=== PATIENT | female | born 1950 | race Caucasian/White ===

== ENCOUNTER 2019-10-29 09:43 | Outpatient (CLI) | payer MEDICARE, OTHER, SELFPAY ==
--- NOTE | ~2019-10-29 | US_ITS ---
EXAMINATION: US carotid duplex BI DATE: 10/29/2019 10:57 INDICATION: Dizziness TECHNIQUE: Grayscale, color Doppler, and pulsed Doppler images of the cervical carotid arteries were obtained. The degree of vessel stenosis is placed in one of the following categories: normal, <50%, 5 0-69%, >=70% but less than near-occlusion, near-occlusion, or total occlusion. Note that percent sten osis relative to normal distal artery lumen diameter is indirectly measured from velocity measurement s as described by Ryan, et al. Radiology 2003; 229:340-346. COMPARISON: None. FINDINGS: RIGHT: The right common carotid artery (CCA) peak systolic velocity (PSV) is 87.1 cm/s. The right internal c arotid artery (ICA) PSV is 90.5 cm/s. The right ICA end-diastolic velocity (EDV) is 7.6 cm/s. The rig ht ICA/CCA PSV ratio is 1.0. Grayscale and color Doppler images yield an estimate of less than 50% di ameter reduction from plaque in the ICA. The external carotid artery (ECA) PSV is 147.6 cm/s. There i s antegrade flow in the right vertebral artery. LEFT: The left CCA PSV is 98.4 cm/s. The left ICA PSV is 217.1 cm/s. The left ICA EDV is 49.9 cm/s. The lef t ICA/CCA PSV ratio is 2.2. Grayscale and color Doppler images yield an estimate of 50-69%% diameter reduction from plaque in the ICA. The ECA PSV is 199.6 cm/s. There is minimal to and fro flow in the left vertebral artery. IMPRESSION: 1. Less than 50% stenosis in the right internal carotid artery. 2. 50-69% stenosis in the left internal carotid artery. Reviewed, dictated and finalized at Location [facility]. Reviewed, dictated and finalized at location A.
== END 2019-10-29 09:44 | disposition home or self-care (01) ==
PROVIDERS: PCP Family Medicine; Visit Provider Internal Medicine Cardiovascular Disease
DX: I65.23 Occlusion and stenosis of bilateral carotid arteries (principal); R42 Dizziness and giddiness; Z98.890 Other specified postprocedural states
CPT/HCPCS: 93880

== ENCOUNTER 2020-02-14 09:39 | Outpatient (NON) | payer MEDICARE, OTHER, SELFPAY ==
[2020-02-15 01:17] LABS: SARS-CoV-2 RNA PCR Negative
== END 2020-02-14 09:40 ==
PROVIDERS: PCP Family Medicine; Visit Provider Family Medicine
DX: R53.83 Other fatigue (principal); Z11.59 Encounter for screening for other viral diseases
CPT/HCPCS: 87635; C9803; U0003

== ENCOUNTER 2022-03-02 19:50 | Emergency (ER) | payer MEDICARE, OTHER, SELFPAY ==
[2022-03-02 20:16] VITALS: BP 153/52; PULSE 81; RESP 18; TEMP 36.4; O2SAT 100
--- NOTE | 2022-03-02 21:54 | PC.NURSE ---
bedside glucose check: 265
[2022-03-02 21:56] LABS: Basophils Absolute Auto 0.1 K/mm3 (0.0-0.1); Basophils Percent Auto 0.9 % (0.2-1.2); Eosinophils Absolute Auto 0.1 K/mm3 (0-0.3); Eosinophils Percent Auto 1.9 % (0-4.4); Hematocrit 42.1 % (37.0-47.0); Hemoglobin 13.6 g/dL (12.0-15.0); Immature Granulocyte Absolute 0.02 K/mm3 (0.00-0.031); Immature Granulocyte Percent A 0.3 % (0-0.5); Lymphocytes Absolute Auto 1.75 K/mm3 (0.9-3.2); Lymphocytes Percent Auto 26.2 % (18.3-44.2); Mean Corpuscular HGB Conc 32.3 g/dl (32-36); Mean Corpuscular Hemoglobin 30.3 pg (26-34); Mean Corpuscular Volume 93.8 fl (80-100); Monocytes Absolute Auto 0.5 K/mm3 (0.1-0.6); Monocytes Percent Auto 7.2 % (2.6-8.5); Neutrophils Absolute Auto 4.3 K/mm3 (1.3-6.7); Neutrophils Percent Auto 63.5 % (45.5-73.1); Platelet Count Result 169 k/mm3 (150-375); Red Blood Count 4.49 M/mm3 (4.2-5.4); Red Cell Distribution Width 12.6 % (11.5-14.5); White Blood Count 6.7 K/mm3 (4.5-10.0)
[2022-03-02 21:56] LABS: Glucose Point of Care 265 mg/dl (65-105)
[2022-03-02 21:59] LABS: Appearance Urine Clear (Clear); Bilirubin Urine Negative (Negative); Blood Urine Negative (Negative); Color Urine Yellow (Yellow); Glucose Urine UA 3+ mg/dL (Negative); Ketones Urine Negative (Negative); Leukocyte Esterase Ur Negative LEU/UL (Negative); Nitrate Urine Negative (Negative); Protein Urine Negative (Negative); Urobilinogen Urine 0.2 mg/dL (<2.0)
[2022-03-02 22:01] VITALS: BP 114/55; PULSE 71; RESP 20; O2SAT 100
--- NOTE | 2022-03-02 22:07 | ED.GENADULT ---
HPI - General Adult General Chief complaint: Recheck/Abnormal Lab/Rx Stated complaint: elevated BS, dong Time Seen by Provider: 03/02/22 21:29 History of Present Illness HPI narrative: 9-year-old female history of diabetes and recent hyperglycemia presenting the emergency department for evaluation of elevated blood sugars today. Patient states over the last month or 2 her blood sugars have been running higher. Patient was recently started on Lantus about 3 weeks ago. Patient's glucose monitor shows that she typically runs around 250 but did have some blood sugars over 400 today. Patient states during that time she did feel shaky. Patient states she does feel improved at this time. Patient has also been complaining of intermittent abdominal pain that is worsened with activities such as mowing the lawn. Patient denies any current abdominal pain at this time. Related Data Home Medications Medication Instructions Recorded Confirmed aspirin 81 mg tablet,delayed 81 mg PO DAILY 10/13/19 03/20/20 release (Adult Low Dose Aspirin) mirabegron 25 mg tablet,extended 25 mg PO DAILY 10/13/19 03/20/20 release 24 hr (Myrbetriq) Allergies Allergy/AdvReac Type Severity Reaction Status Date / Time No Known Allergies Allergy Verified 03/02/22 20:18 Review of Systems Review of Systems: CONSTITUTIONAL: Denies fever, chills, or sweats. EYES: Denies visual changes, redness, or discharge. ENT: Denies rhinorrhea, congestion, sore throat, or otalgia. CARDIOVASCULAR: Denies chest pain, palpitations, or edema. RESPIRATORY: Denies cough or dyspnea. GASTROINTESTINAL: See HPI GENITOURINARY: Denies dysuria or hematuria. SKIN: Denies rash or itching. MUSCULOSKELETAL: Denies back pain, joint pain, or myalgia. NEUROLOGIC: Denies headache, numbness, or weakness. [facility] Past Medical History Medical History ACL tear Tear of MCL (medial collateral ligament) of knee Family History Family History Mother Hypertension Cerebrovascular accident Family history of diabetes mellitus in first degree relative Family history of coronary artery disease Grandparent Family history of lung cancer Family history of coronary artery disease Diabetes mellitus Other Family history of arthritis Family history of gout Family history of malignant neoplasm Social History Social History Smoking status: Former smoker Smoking end date: 06/07/99 Alcohol intake: never Substance use: never Substance use type: does not use Gender identity (if verbalized by the patient): Female Exam Narrative: APPEARANCE: Well appearing, no pain, no distress, well-nourished. HEAD: normocephalic, atraumatic. EYES: PERRLA/EOMI, conjunctivae clear. NOSE: Normal no drainage NECK: Supple. No adenopathy, no masses. RESPIRATORY: Airway patent, respirations nonlabored. Clear to auscultation bilaterally, no rales, rhonchi, wheezing. CARDIOVASCULAR: Regular rate and rhythm without murmurs rubs or gallops. ABDOMINAL: Soft, nontender, nondistended, normal bowel sounds MUSCULOSKELETAL: Moves all extremities. Strength/ROM intact, No edema, No calf tenderness. NEURO: Alert. Cranial nerves II through XII intact. Grossly intact SKIN: Warm, dry. Normal Color Course Course Emergency Course: Patient's blood sugars did return to her recent baseline of 250. Patient did feel improved with treatment. Patient was encouraged to continue to have close follow-up with her primary care physician for further diabetic medication adjustment. Patient was comfortable with the plan for discharge and close follow-up. Vital Signs Vital signs: Vital Signs Temperature 97.5 F L 03/02/22 20:16 Pulse Rate 81 03/02/22 20:16 Respiratory Rate 18 03/02/22 20:16 Blood Pressure 153/52 H 03/02/22 20:16 Pulse Oximetry 100
[2022-03-02 22:11] LABS: Alanine Aminotransferase 19 U/L (6-35); Albumin Level 3.8 g/dL (3.5-5.1); Alkaline Phosphatase 72 U/L (38-126); Anion Gap 8 mmol/L (8-16); Aspartate Amino Transferase 21 U/L (14-36); Bilirubin,Total 0.4 mg/dL (0.2-1.3); Blood Urea Nitrogen 19 mg/dL (7-17); Calcium 8.9 mg/dL (8.4-10.2); Carbon Dioxide 27 mmol/L (22-30); Chloride 102 mmol/L (98-107); Estimated CRCL calculation 53 ml/min; Estimated Glomerular Filt Rate > 60; Glucose 267 mg/dL (65-110); Potassium 4.5 mmol/L (3.4-5.0); Sodium 137 mmol/L (137-145)
[2022-03-02 22:12] LABS: Bacteria Urine Trace /hpf; RBC Urine 0-2 /hpf (0-2); Squamous Epithelial Cell Urine Moderate /hpf (Few); WBC Urine 21-30 /hpf
[2022-03-02 22:18] LABS: Hemoglobin A1C 8.2 % (<5.7)
[2022-03-02 22:55] LABS: Add Urine Microscopic? YES
== END 2022-03-02 22:48 | disposition home or self-care (01) ==
PROVIDERS: Emergency Provider Emergency Medicine; PCP Family Medicine
DX: E11.65 Type 2 diabetes mellitus with hyperglycemia (principal); Z79.82 Long term (current) use of aspirin; Z87.891 Personal history of nicotine dependence; Z79.84 Long term (current) use of oral hypoglycemic drugs
CPT/HCPCS: 36415; 80053; 81001; 82948; 83036; 85025; 87086; 87088; 99283

== ENCOUNTER 2023-02-10 01:24 | Day surgery (SDC) | payer MEDICARE, OTHER, SELFPAY ==
[2023-02-02 15:46] VITALS: BMI 26.6
--- NOTE | 2023-02-09 14:59 | PM.HPGS ---
History of Present Illness History of Present Illness Consent: Risks, benefits, and alternatives have been discussed and questions answered. Patient agrees to proceed with procedure. Chief complaint: hx colon polyps Narrative: Mildred Grace is a 72 year old female undergoing colon cancer screening. She has history of polyps. Her last colonoscopy was 5 years ago. Review of Systems Review of Systems: All systems reviewed & are unremarkable except as noted in HPI and below PMFSH Past Medical History Medical History ACL tear Tear of MCL (medial collateral ligament) of knee Family History Family History Mother Hypertension Cerebrovascular accident Family history of diabetes mellitus in first degree relative Family history of coronary artery disease Grandparent Family history of lung cancer Family history of coronary artery disease Diabetes mellitus Other Family history of arthritis Family history of gout Family history of malignant neoplasm Social History Social History Smoking status: Former smoker Tobacco type: cigarettes Smoking end date: 06/07/99 Alcohol intake: current Alcohol use details: social Substance use: never Substance use type: does not use Living arrangements: with family Occupation/Education: retired Gender identity (if verbalized by the patient): Female Spiritual care concerns: No Meds Home Medications and Allergies Home Medications Medication Instructions Recorded Confirmed Type exenatide microspheres 2 mg/0.65 2 mg (0.65 mL) subcut Q7D #12 ea 09/21/19 02/02/23 Rx mL subcutaneous pen injector (Bydureon) aspirin 81 mg tablet,delayed 81 mg PO DAILY 10/13/19 02/02/23 History release (Adult Low Dose Aspirin) mirabegron 25 mg tablet,extended 25 mg PO DAILY 10/13/19 02/02/23 History release 24 hr (Myrbetriq) colchicine (gout) 0.6 mg capsule 0.6 mg PO .COMPLEX #30 caps 03/17/21 02/02/23 Rx (Mitigare) buspirone 7.5 mg tablet 7.5 mg PO BID 02/02/23 02/02/23 History clopidogrel 75 mg tablet 75 mg PO DAILY 02/02/23 02/10/23 History dapagliflozin propanediol 10 mg 10 mg PO DAILY 02/02/23 02/02/23 History tablet (Farxiga) duloxetine 60 mg capsule,delayed 60 mg PO DAILY 02/02/23 02/02/23 History release gabapentin 300 mg capsule 300 mg PO BID 02/02/23 02/02/23 History insulin aspart U-100 100 unit/mL 8 unit subcut TIDWM 02/02/23 02/02/23 History (3 mL) subcutaneous pen insulin detemir U-100 100 unit/mL 25 unit subcut BID 02/02/23 02/02/23 History (3 mL) subcutaneous pen (Levemir FlexPen) lisinopril 40 mg tablet 40 mg PO DAILY 02/02/23 02/02/23 History semaglutide 1 mg/dose (4 mg/3 mL) 1 mg subcut WEEKLY 02/02/23 02/02/23 History subcutaneous pen injector (Ozempic) Allergies Allergy/AdvReac Type Severity Reaction Status Date / Time No Known Allergies Allergy Verified 02/10/23 09:31 Exam Const: General: alert Orientation/consciousness: patient oriented x3 Resp: Auscultation: clear to auscultation bilaterally Cardio: Rhythm: regular rhythm GI: GI Palp: Yes Soft to palpation and No Tenderness to palpation present (GI) Neuro: General: patient oriented x3 Assessment and Plan Assessment and plan (1) Colon cancer screening: Code(s): Z12.11 - Encounter for screening for malignant neoplasm of colon Status: Acute Assessment and Plan: Colonoscopy with possible biopsy or polypectomy or cautery or injection of substances.
[2023-02-10 09:34] VITALS: BP 125/62; PULSE 75; RESP 18; TEMP 36.1; O2SAT 99
[2023-02-10] MEDS: LACTATED RINGERS 1,000 ML 150 ML IV CONT (09:44)
--- NOTE | 2023-02-10 10:20 | WPDANESEPPF ---
Anes - Initial Pre Proc Eval Procedure: Operation Date: 02/10/23 11:30 Proposed Procedures p Colonoscopy - Tino Ng MD Date/Time: 02/10/23 10:20 Surgeon: Tino Ng MD Pre Op Diagnosis: hx colon polyps Patient Data Age: 72 Gender: F Height: 1.57 m Weight: 67.4 kg Last Vital Signs Temp 97 F L 02/10/23 09:34 Pulse 75 02/10/23 09:34 Resp 18 02/10/23 09:34 BP 125/62 02/10/23 09:34 Pulse Ox 99 02/10/23 09:34 O2 Del Method Room Air 02/10/23 09:34 Allergies Allergy/AdvReac Type Severity Reaction Status Date / Time No Known Allergies Allergy Verified 02/10/23 09:31 Home Medications Medication Instructions Recorded Confirmed Type exenatide microspheres 2 mg/0.65 2 mg (0.65 mL) subcut Q7D #12 ea 09/21/19 02/02/23 Rx mL subcutaneous pen injector (Bydureon) aspirin 81 mg tablet,delayed 81 mg PO DAILY 10/13/19 02/02/23 History release (Adult Low Dose Aspirin) mirabegron 25 mg tablet,extended 25 mg PO DAILY 10/13/19 02/02/23 History release 24 hr (Myrbetriq) colchicine (gout) 0.6 mg capsule 0.6 mg PO .COMPLEX #30 caps 03/17/21 02/02/23 Rx (Mitigare) buspirone 7.5 mg tablet 7.5 mg PO BID 02/02/23 02/02/23 History clopidogrel 75 mg tablet 75 mg PO DAILY 02/02/23 02/10/23 History dapagliflozin propanediol 10 mg 10 mg PO DAILY 02/02/23 02/02/23 History tablet (Farxiga) duloxetine 60 mg capsule,delayed 60 mg PO DAILY 02/02/23 02/02/23 History release gabapentin 300 mg capsule 300 mg PO BID 02/02/23 02/02/23 History insulin aspart U-100 100 unit/mL 8 unit subcut TIDWM 02/02/23 02/02/23 History (3 mL) subcutaneous pen insulin detemir U-100 100 unit/mL 25 unit subcut BID 02/02/23 02/02/23 History (3 mL) subcutaneous pen (Levemir FlexPen) lisinopril 40 mg tablet 40 mg PO DAILY 02/02/23 02/02/23 History semaglutide 1 mg/dose (4 mg/3 mL) 1 mg subcut WEEKLY 02/02/23 02/02/23 History subcutaneous pen injector (Ozempic) Patient hx anesthesia problems: none Family hx anesthesia problems: none Results Review: All pre-operative results and documents have been reviewed as part of the pre-operative evaluation. [facility] Past Medical History Medical History ACL tear Tear of MCL (medial collateral ligament) of knee Family History Family History Mother Hypertension Cerebrovascular accident Family history of diabetes mellitus in first degree relative Family history of coronary artery disease Grandparent Family history of lung cancer Family history of coronary artery disease Diabetes mellitus Other Family history of arthritis Family history of gout Family history of malignant neoplasm Social History Social History Smoking status: Former smoker Tobacco type: cigarettes Smoking end date: 06/07/99 Alcohol intake: current Alcohol use details: social Substance use: never Substance use type: does not use Living arrangements: with family Occupation/Education: retired Gender identity (if verbalized by the patient): Female Spiritual care concerns: No Anes - Eval Final PreProcedure Day of Procedure 02/10/23 10:20 Patient weight: normal Heart: regular rate and rhythm Lungs: clear to auscultation Airway: Mallampati scale class II Neurological: alert and oriented Last oral intake: >/= 8 hours ASA classification: III Emergent: no Anesthetic plan: proceed Anesthesia type and monitoring: general GIVS and standard monitoring Results Review: All pre-operative results and documents have been reviewed as part of the pre-operative evaluation. Informed Consent: The patient's anesthetic plan and its attendant risks and benefits were discussed with the patient/family/POA. Questions were solicited and answers provided to the satisfaction of the patient/family
[2023-02-10 10:57] VITALS: BP 123/56; PULSE 74; RESP 20; O2SAT 96
[2023-02-10 11:07] VITALS: BP 107/51; PULSE 74; RESP 20; O2SAT 96
[2023-02-10 11:14] LABS: Glucose Point of Care 95 mg/dl (65-105)
[2023-02-10 11:17] VITALS: BP 128/65; PULSE 72; RESP 18; O2SAT 100
== END 2023-02-10 11:34 | disposition home or self-care (01) ==
PROVIDERS: PCP Family Medicine; Visit Provider Internal Medicine Gastroenterology
PROC: 0DJD8ZZ Inspection of Lower Intestinal Tract, Via Natural or Artificial Opening Endoscopic (ICD-10-PCS; CPT 45378; principal; 2023-02-10 11:30)
DX: Z12.11 Encounter for screening for malignant neoplasm of colon (principal); D12.4 Benign neoplasm of descending colon; K63.5 Polyp of colon; K57.30 Diverticulosis of large intestine without perforation or abscess without bleeding; Z79.82 Long term (current) use of aspirin; Z79.4 Long term (current) use of insulin; Z79.899 Other long term (current) drug therapy; Z87.891 Personal history of nicotine dependence
CPT/HCPCS: 45385; 82948; 88305; J2704; J7120

== ENCOUNTER 2023-11-14 13:01 | Emergency (ER) | payer MEDICARE, OTHER, SELFPAY ==
--- NOTE | ~2023-11-14 | XR_ITS ---
XR finger 3rd LT min 2V 11/14/2023 13:26 INDICATION: Left third finger pain after fall PROCEDURE: 3 views left third finger COMPARISON: No prior studies FINDINGS: Fracture, dislocation or subluxation is not identified. Mild polyarticular osteoarthritis. The soft tissues appear within normal limits. No foreign bodies are identified. IMPRESSION: 1: NO ACUTE BONE OR JOINT ABNORMALITY IDENTIFIED. Reviewed, dictated and finalized at location B.
--- NOTE | 2023-11-14 13:04 | ED.UPPEXIN ---
HPI - Extremity Injury (Upper) General Chief Complaint: Extremity Injury, Upper Stated Complaint: Injured Finger/Bruised Arm Time Seen by Provider: 11/14/23 13:03 Source: patient Mode of arrival: ambulatory Limitations: no limitations History of Present Illness HPI narrative: Mildred is a 73-year-old female patient presenting to the clinic today with complaints of injury to her finger left 3rd finger. She reports that she fell approximately 3 hours at home when going inside the home she tripped over the step to get up into the house and hit her finger on a Orange chest. States that she thought she displaced her finger and popped it back into place but now it has bruising and swelling. Also reporting some skin tears 2 to the left arm and 1 to the right arm. She denies hitting her head or any loss of consciousness. Denies any neck pain. Related Data Home Medications Medication Instructions Recorded Confirmed aspirin 81 mg tablet,delayed 81 mg PO DAILY 10/13/19 02/02/23 release (Adult Low Dose Aspirin) mirabegron 25 mg tablet,extended 25 mg PO DAILY 10/13/19 02/02/23 release 24 hr (Myrbetriq) buspirone 7.5 mg tablet 7.5 mg PO BID 02/02/23 02/02/23 clopidogrel 75 mg tablet 75 mg PO DAILY 02/02/23 02/10/23 dapagliflozin propanediol 10 mg 10 mg PO DAILY 02/02/23 02/02/23 tablet (Farxiga) duloxetine 60 mg capsule,delayed 60 mg PO DAILY 02/02/23 02/02/23 release gabapentin 300 mg capsule 300 mg PO BID 02/02/23 02/02/23 insulin aspart U-100 100 unit/mL 8 unit subcut TIDWM 02/02/23 02/02/23 (3 mL) subcutaneous pen insulin detemir U-100 100 unit/mL 25 unit subcut BID 02/02/23 02/02/23 (3 mL) subcutaneous pen (Levemir FlexPen) lisinopril 40 mg tablet 40 mg PO DAILY 02/02/23 02/02/23 semaglutide 1 mg/dose (4 mg/3 mL) 1 mg subcut WEEKLY 02/02/23 02/02/23 subcutaneous pen injector (Ozempic) Allergies Allergy/AdvReac Type Severity Reaction Status Date / Time No Known Allergies Allergy Verified 02/10/23 09:31 Review of Systems Review of Systems: Pertinent positives per HPI. Patient denies any fever, chills, rash, headache, visual changes, dizziness, cough, runny nose, sore throat, shortness of breath, chest pain, palpitations, nausea, vomiting, diarrhea, constipation, abdominal pain, or any urinary issues. PMFSH Past Medical History Medical History ACL tear Tear of MCL (medial collateral ligament) of knee Family History Family History Mother Hypertension Cerebrovascular accident Family history of diabetes mellitus in first degree relative Family history of coronary artery disease Grandparent Family history of lung cancer Family history of coronary artery disease Diabetes mellitus Other Family history of arthritis Family history of gout Family history of malignant neoplasm Social History Social History Smoking status: Former smoker Tobacco type: cigarettes Smoking end date: 06/07/99 Alcohol intake: current Alcohol use details: social Substance use: never Substance use type: does not use Living arrangements: with family Occupation/Education: retired Gender identity (if verbalized by the patient): Female Spiritual care concerns: No Comments At the time of my signature, I reviewed and agree with the nursing past medical, surgical, social, and family history. There is no relevant family history pertinent to the patient complaint. Exam Narrative: General: Well-developed, well nourished, in no apparent distress Head: Normocephalic, atraumatic. Cardio: Regular rate and rhythm, s1 and s2 normal, no murmur appreciated. Resp: Clear to auscultation bilaterally, no rhonchi, rales, wheezing or rubs. Musculoskeletal: No deformity, bruising and swelling over the dorsal finger, swelling over th
[2023-11-14 13:14] VITALS: BP 139/59; PULSE 67; RESP 16; TEMP 36.6; O2SAT 99
[2023-11-14] MEDS: TETANUS,DIPHTHERIA,AC PERTUSSIS ADULT (0.5 ML) BOOSTRIX IM (13:31)
== END 2023-11-14 13:55 | disposition home or self-care (01) ==
PROVIDERS: Emergency Provider Nurse Practitioner Family; PCP Family Medicine
DX: S51.812A Laceration without foreign body of left forearm, initial encounter (principal); S63.633A Sprain of interphalangeal joint of left middle finger, initial encounter; W10.9XXA Fall (on) (from) unspecified stairs and steps, initial encounter; Z23 Encounter for immunization; Z87.891 Personal history of nicotine dependence
CPT/HCPCS: 29130; 73140; 90471; 90715; 99213; G0463

== ENCOUNTER 2024-01-14 11:02 | Outpatient (CLI) | payer MEDICARE, OTHER, SELFPAY ==
[2024-01-14 11:43] LABS: Hemoglobin 14.7 g/dL (12.0-15.0); Mean Corpuscular Hemoglobin 30.1 pg (26-34); Mean Corpuscular Volume 94.3 fl (80-100); Mean Platelet Volume 9.8 fl (7.4-10.4); Platelet Count Result 188 k/mm3 (150-375); Red Blood Count 4.88 M/mm3 (4.2-5.4); Red Cell Distribution Width 13.5 % (11.5-14.5); White Blood Count 6.4 K/mm3 (4.5-10.0)
[2024-01-14 11:49] LABS: Add Urine Microscopic? YES; Appearance Urine Cloudy (Clear); Bacteria Urine Rare /hpf; Bilirubin Urine Negative (Negative); Blood Urine Negative (Negative); Color Urine Yellow (Yellow); Glucose Urine UA Negative (Negative); Ketones Urine Negative (Negative); Leukocyte Esterase Ur 2+ LEU/UL (Negative); Nitrate Urine Negative (Negative); Non Pathogenic Casts 0-2; Protein Urine Negative (Negative); RBC Urine 0-2 /hpf (0-2); Specific Grav Ur 1.017 (1.001-1.035); Squamous Epithelial Cell Urine Moderate /hpf (Few); Urobilinogen Urine 0.2 mg/dL (<2.0); pH Urine 5.5 (5.0-9.0)
[2024-01-14 12:37] LABS: Alanine Aminotransferase 25 U/L (6-35); Albumin Level 4.2 g/dL (3.5-5.1); Alkaline Phosphatase 72 U/L (38-126); Anion Gap 11 mmol/L (4-12); Aspartate Amino Transferase 25 U/L (14-36); Bilirubin,Total 0.9 mg/dL (0.2-1.3); Blood Urea Nitrogen 21 mg/dL (7-17); Calcium 9.4 mg/dL (8.4-10.2); Carbon Dioxide 30 mmol/L (22-30); Chloride 98 mmol/L (98-107); Estimated Glomerular Filt Rate > 60; Glucose 118 mg/dL (65-110); Potassium 4.3 mmol/L (3.4-5.0); Sodium 139 mmol/L (137-145)
== END 2024-01-14 11:03 | disposition home or self-care (01) ==
PROVIDERS: PCP Family Medicine; Visit Provider Nurse Practitioner Family
DX: K52.9 Noninfective gastroenteritis and colitis, unspecified (principal); R10.9 Unspecified abdominal pain
CPT/HCPCS: 36415; 80053; 81001; 85027; 87086; 87088

== ENCOUNTER 2024-01-17 11:09 | Outpatient (CLI) | payer MEDICARE, OTHER, SELFPAY ==
[2024-01-17 13:30] LABS: Toxigenic C. Diff NEGATIVE (NEGATIVE)
[2024-01-28 10:54] LABS: Trichrome Ova and Parasites STATUS: FINAL
== END 2024-01-17 11:10 | disposition home or self-care (01) ==
LOC: ANHLAB 11:15
PROVIDERS: PCP Family Medicine; Visit Provider Nurse Practitioner Family
DX: K52.9 Noninfective gastroenteritis and colitis, unspecified (principal)
CPT/HCPCS: 87045; 87177; 87209; 87269; 87427; 87449; 87493

== ENCOUNTER 2024-04-04 01:30 | Day surgery (SDC) | payer MEDICARE, OTHER, SELFPAY ==
[2024-03-28 13:57] VITALS: BMI 29.0
--- NOTE | 2024-03-30 09:13 | PC.NURSE ---
Called [facility] Cardiology Dr. Allan and left a message with Francisco in regards to cardiac clearance for this patient's colonoscopy. Clearance is needed by today as patient's last dose of Plavix is today.
--- NOTE | 2024-03-30 11:28 | PC.NURSE ---
Spoke with patient regarding medication, Plavix. Pt. verbalizes understanding that the last dose of Plavix to be taken on 03/30/2024 and the Endoscopist will instruct them when to restart after the procedure.
[2024-04-04 07:18] VITALS: BP 122/53; PULSE 73; RESP 18; TEMP 36.4; O2SAT 97; BMI 29.2
[2024-04-04 07:53] LABS: Glucose Point of Care 115 mg/dl (65-105)
[2024-04-04] MEDS: LACTATED RINGERS 1,000 ML 150 ML IV CONT (07:57)
--- NOTE | 2024-04-04 08:05 | PM.HPGS ---
History of Present Illness History of Present Illness Consent: Risks, benefits, and alternatives have been discussed and questions answered. Patient agrees to proceed with procedure. Chief complaint: gastroenteritis/colitis Narrative: Mildred Grace is a 74 year old female with episode of colitis, now resolved, no more diarrhea. Last colonoscopy 2022 with polyp. She has fatigue and back pain. Review of Systems Review of Systems: All systems reviewed & are unremarkable except as noted in HPI and below PMFSH Past Medical History Medical History (Updated 02/11/24 @ 13:41 by Aidee Boss APN-Angelica) Abdominal pain ACL tear Colitis Diarrhea Fatigue IBS (irritable bowel syndrome) Tear of MCL (medial collateral ligament) of knee Family History Family History Mother Hypertension Cerebrovascular accident Family history of diabetes mellitus in first degree relative Family history of coronary artery disease Grandparent Family history of lung cancer Family history of coronary artery disease Diabetes mellitus Other Family history of arthritis Family history of gout Family history of malignant neoplasm Social History Social History Smoking packs per day: 1 Smoking cigarettes per day: 20.0 Years smoked: 45 Smoking pack-years: 45.00 Smoking status: Former smoker Tobacco type: cigarettes Smoking end date: 06/07/99 Alcohol intake: current Alcohol use details: social Substance use: never Substance use type: does not use Living arrangements: with family Occupation/Education: retired Gender identity (if verbalized by the patient): Female Spiritual care concerns: No Meds Home Medications and Allergies Home Medications Medication Instructions Recorded Confirmed Type aspirin 81 mg tablet,delayed 81 mg PO DAILY 10/13/19 04/04/24 History release (Adult Low Dose Aspirin) buspirone 7.5 mg tablet 7.5 mg PO TID 02/02/23 03/28/24 History clopidogrel 75 mg tablet 75 mg PO DAILY 02/02/23 03/28/24 History duloxetine 60 mg capsule,delayed 60 mg PO DAILY 02/02/23 03/28/24 History release gabapentin 300 mg capsule 300 mg PO BID 02/02/23 03/28/24 History insulin aspart U-100 100 unit/mL 8 unit subcut TIDWM 02/02/23 04/04/24 History (3 mL) subcutaneous pen insulin detemir U-100 100 unit/mL 30 unit subcut BID 02/02/23 04/04/24 History (3 mL) subcutaneous pen (Levemir FlexPen) lisinopril 40 mg tablet 40 mg PO DAILY 02/02/23 03/28/24 History semaglutide 1 mg/dose (4 mg/3 mL) 2 mg subcut WEEKLY 02/02/23 04/04/24 History subcutaneous pen injector (Ozempic) dicyclomine 10 mg capsule 10 mg PO TID PRN abdominal pain 01/14/24 03/28/24 Rx #30 caps alprazolam 0.25 mg tablet 0.25 mg PO TID PRN Anxiety 03/28/24 04/04/24 History biotin 1,000 mcg chewable tablet 1,000 mcg PO DAILY 03/28/24 03/28/24 History cholecalciferol (vitamin D3) 25 25 mcg PO DAILY 03/28/24 03/28/24 History mcg (1,000 unit) tablet (Vitamin D3) colchicine 0.6 mg capsule 0.6 mg PO .COMPLEX PRN GOUT 03/28/24 03/28/24 History (Mitigare) donepezil 10 mg tablet 10 mg PO HS 03/28/24 03/28/24 History oxybutynin chloride 10 mg 10 mg PO DAILY 03/28/24 03/28/24 History tablet,extended release 24 hr rosuvastatin 40 mg tablet 40 mg PO DAILY 03/28/24 03/28/24 History Allergies Allergy/AdvReac Type Severity Reaction Status Date / Time No Known Allergies Allergy Verified 03/28/24 13:58 Vital Signs Vital Signs - 24 hr 04/04/24 07:18 Temperature 97.6 F Pulse Rate 73 Respiratory Rate 18 Blood Pressure 122/53 L Pulse Oximetry 97 Oxygen Delivery Room Air Exam Const: General: comfortable and no acute distress HENMT: Face/Nose/Sinus: Normal nares present Eyes: General: appearance normal, both eyes and all related structures Neck: Neck: no JVD Resp: Auscultation: clear to auscultation bilaterally Cardio: Rate: regular rate Rhythm: regular rhythm GI: Inspection: non-distended GI Palp: Yes Soft to palpation Skin: General skin exam: normal color Neuro: General: gait normal Speech: normal speech Extrem: General: normal to inspection Psych: Mental Status: mental status grossly normal Assessment and Plan Assessment and plan (1) Colitis: Code(s): K52.9 - Noninfective gastroenteritis and colitis, unspecified Status: Acute Assessment and Plan: clinically resolved will do colonoscopy
--- NOTE | 2024-04-04 08:12 | WPDANESEPPF ---
Anes - Initial Pre Proc Eval Procedure: Operation Date: 04/04/24 08:30 Proposed Procedures p Colonoscopy - Ari Crabtree MD Date/Time: 04/04/24 08:12 Surgeon: Ari Crabtree MD Pre Op Diagnosis: gastroenteritis/colitis Patient Data Age: 74 Gender: F Height: 1.57 m Weight: 72.4 kg Last Vital Signs Temp 36.4 C 04/04/24 07:18 Pulse 73 04/04/24 07:18 Resp 18 04/04/24 07:18 BP 122/53 L 04/04/24 07:18 Pulse Ox 97 04/04/24 07:18 O2 Del Method Room Air 04/04/24 07:18 Allergies Allergy/AdvReac Type Severity Reaction Status Date / Time No Known Allergies Allergy Verified 03/28/24 13:58 Home Medications Medication Instructions Recorded Confirmed Type aspirin 81 mg tablet,delayed 81 mg PO DAILY 10/13/19 04/04/24 History release (Adult Low Dose Aspirin) buspirone 7.5 mg tablet 7.5 mg PO TID 02/02/23 03/28/24 History clopidogrel 75 mg tablet 75 mg PO DAILY 02/02/23 03/28/24 History duloxetine 60 mg capsule,delayed 60 mg PO DAILY 02/02/23 03/28/24 History release gabapentin 300 mg capsule 300 mg PO BID 02/02/23 03/28/24 History insulin aspart U-100 100 unit/mL 8 unit subcut TIDWM 02/02/23 04/04/24 History (3 mL) subcutaneous pen insulin detemir U-100 100 unit/mL 30 unit subcut BID 02/02/23 04/04/24 History (3 mL) subcutaneous pen (Levemir FlexPen) lisinopril 40 mg tablet 40 mg PO DAILY 02/02/23 03/28/24 History semaglutide 1 mg/dose (4 mg/3 mL) 2 mg subcut WEEKLY 02/02/23 04/04/24 History subcutaneous pen injector (Ozempic) dicyclomine 10 mg capsule 10 mg PO TID PRN abdominal pain 01/14/24 03/28/24 Rx #30 caps alprazolam 0.25 mg tablet 0.25 mg PO TID PRN Anxiety 03/28/24 04/04/24 History biotin 1,000 mcg chewable tablet 1,000 mcg PO DAILY 03/28/24 03/28/24 History cholecalciferol (vitamin D3) 25 25 mcg PO DAILY 03/28/24 03/28/24 History mcg (1,000 unit) tablet (Vitamin D3) colchicine 0.6 mg capsule 0.6 mg PO .COMPLEX PRN GOUT 03/28/24 03/28/24 History (Mitigare) donepezil 10 mg tablet 10 mg PO HS 03/28/24 03/28/24 History oxybutynin chloride 10 mg 10 mg PO DAILY 03/28/24 03/28/24 History tablet,extended release 24 hr rosuvastatin 40 mg tablet 40 mg PO DAILY 03/28/24 03/28/24 History Laboratory Tests 04/04/24 07:49 POC Capillary Glucose 115 H mg/dl (65-105) Patient hx anesthesia problems: none Family hx anesthesia problems: none Results Review: All pre-operative results and documents have been reviewed as part of the pre-operative evaluation. [facility], [facility] Past Medical History Medical History Abdominal pain ACL tear Colitis Diarrhea Fatigue IBS (irritable bowel syndrome) Tear of MCL (medial collateral ligament) of knee Family History Family History Mother Hypertension Cerebrovascular accident Family history of diabetes mellitus in first degree relative Family history of coronary artery disease Grandparent Family history of lung cancer Family history of coronary artery disease Diabetes mellitus Other Family history of arthritis Family history of gout Family history of malignant neoplasm Social History Social History Smoking packs per day: 1 Smoking cigarettes per day: 20.0 Years smoked: 45 Smoking pack-years: 45.00 Smoking status: Former smoker Tobacco type: cigarettes Smoking end date: 06/07/99 Alcohol intake: current Alcohol use details: social Substance use: never Substance use type: does not use Living arrangements: with family Occupation/Education: retired Gender identity (if verbalized by the patient): Female Spiritual care concerns: No Anes - Eval Final PreProcedure Day of Procedure 04/04/24 08:12 Patient weight: overweight Heart: regular rate and rhythm Lungs: clear to auscultation Airway: Mallampati scale Neurological: alert and oriented Last oral intake: >/= 8 hours ASA classification: III Emergent: no Anesthetic plan: proceed Anesthesia type and monitoring: general Results Review: All pre-operative results and documents have been reviewed as part of the pre-operative evaluation. Informed Consent: The patient's anesthetic plan and its attendant risks and benefits were discussed with the patient/family/POA. Questions were solicited and answers provided to the satisfaction of the patient/family/POA.
[2024-04-04 08:21] VITALS: BP 90/27; PULSE 65; RESP 16; O2SAT 93
[2024-04-04 08:31] VITALS: BP 84/26; PULSE 63; RESP 16; O2SAT 92
[2024-04-04 08:34] VITALS: BP 115/41; PULSE 72; RESP 16; O2SAT 92
[2024-04-04 08:41] VITALS: BP 110/44; PULSE 71; RESP 16; O2SAT 99
[2024-04-04 08:51] LABS: Glucose Point of Care 110 mg/dl (65-105)
== END 2024-04-04 08:54 | disposition home or self-care (01) ==
PROVIDERS: PCP Family Medicine; Referring Provider Nurse Practitioner Family; Visit Provider Internal Medicine Gastroenterology
PROC: 0DJD8ZZ Inspection of Lower Intestinal Tract, Via Natural or Artificial Opening Endoscopic (ICD-10-PCS; CPT 45378; principal; 2024-04-04 08:30)
DX: K63.5 Polyp of colon (principal); K64.8 Other hemorrhoids; K57.30 Diverticulosis of large intestine without perforation or abscess without bleeding; K58.9 Irritable bowel syndrome, unspecified; Z79.82 Long term (current) use of aspirin; Z79.02 Long term (current) use of antithrombotics/antiplatelets; Z79.4 Long term (current) use of insulin; Z79.85 Long-term (current) use of injectable non-insulin antidiabetic drugs; Z87.891 Personal history of nicotine dependence; Z87.19 Personal history of other diseases of the digestive system; Z80.1 Family history of malignant neoplasm of trachea, bronchus and lung; Z82.49 Family history of ischemic heart disease and other diseases of the circulatory system
CPT/HCPCS: 45385; 82948; 88305; J2704; J7120

== ENCOUNTER 2024-07-07 11:39 | Inpatient (IN) | payer MEDICARE, OTHER, SELFPAY ==
[2024-07-07] VITALS (7 sets, daily range): BP systolic 127–172; BP diastolic 59–105; PULSE 87–99; RESP 12–20; TEMP 36.8–37.2; O2SAT 93–98; BMI 32.2
--- NOTE | ~2024-07-07 | CT_ITS ---
EXAMINATION: CT abdomen pelvis w con DATE: 07/07/2024 16:43 INDICATION: Bloody diarrhea TECHNIQUE: Computed tomography (CT) of the abdomen and pelvis was performed with 100 mL Omnipaque-350 intravenous contrast. Automated exposure control and iterative reconstruction technique were employe d. The dose-length product was 560.14 mGy-cm. COMPARISON: 12/06/2018 FINDINGS: Visualized lung bases are clear. Heart size is normal. Atherosclerotic coronary artery calcification is. No pericardial or pleural effusion. Cholecystectomy clips in the gallbladder fossa. Liver, pancre as and bilateral adrenal glands are normal. There are bilateral renal cysts the largest on the right measuring 2.5 cm. Unchanged likely benign partially rim calcified 1.2 cm cystic lesion in the spleen. There is wall thickening extending from the mid transverse the mid sigmoid colon with mild associate d hyperemia to vasa recta consistent with colitis. There are few sigmoid diverticula without adjacent from trace stranding to suggest diverticulitis. Small bowel and appendix are normal. Partially decom pressed bladder is unremarkable. The uterus is not identified and has likely been surgically resected . No free intraperitoneal gas or fluid. No pathologically enlarged abdominal or pelvic lymphadenopath y. There is calcified atherosclerosis without hemodynamically significant stenosis of the aorta and m any of the other arteries. Mild lumbar dextroscoliosis with severe lumbar and lower thoracic spondyl osis. There are bridging osteophytes at multiple levels consistent with diffuse idiopathic skeletal h yperostosis (DISH). IMPRESSION: 1. Colitis extending from the mid transverse to the mid sigmoid colon which could be infectious, infl ammatory or ischemic in etiology. Reviewed, dictated and finalized at location [facility] IMPRESSION: 1. Colitis extending from the mid transverse to the mid sigmoid colon which cou ld be infectious, inflammatory or ischemic in etiology.
--- OUTSIDE RECORDS SUMMARY | 2024-07-07 11:43 | XMS_ITS | Clinical Summary ---
Author Organization [facility] Address [address] 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 This disclosure is being madepursuant to the Care Everywhere program and may not contain all information available regarding this patient. Last updated 18.[facility] Allergies No known active allergies Medications * Be aware that medications may not be up to date on this document. Alwaysverify current medications with the patient. Medication Sig Dispensed Refills Start Date End Date Status aspirin (ASPIRIN) 81 MG chew tablet Take 81 mg by mouth DAILY. 100 tablet 3 03/02/2017 Active rosuvastatin (CRESTOR) 40 MG tablet 02/07/2016 Active Biotin 1000 MCG Take by mouth. 04/16/2016 Activ e quinapril (ACCUPRIL) 40 MG tablet Take 5 mg by mouth once daily 02/05/2013 Active gabapentin (NEURONTIN) 300 MG capsule Take 300 mg by mouth 2 times daily Takes 1 tab BID 10/01/2014 Active DULoxetine (CYMBALTA) 60 MG capsule Take by mouth once daily 09/18/2014 Active clopidogrel (PLAVIX) 75 MG tablet Take 75 mg by mouth once daily 01/13/2013 Active empagliflozin (JARDIANCE) 25 MG tablet Take 25 mg by mouth once daily Active febuxostat (ULORIC) 40 MG tablet Take 40 mg by mouth once daily Active busPIRone (BUSPAR) 7.5 MG tablet Take 7.5 mg by mouth 2 times daily Active colchicine (COLCRYS) 0.6 MG tablet Take 0.6 mg by mouth once daily Active Magnesium 400 MG Take by mouth once daily Active Vitamin D, Cholecalciferol, 25 MCG (1000 UT) CAPS Take by mouth once daily Active Cyanocobalamin (B-12) 2500 MCG Take by mouth every 2 days Active Cranberry 500 MG TABS Take by mouth once daily Active TURMERIC PO Take 1,400 mg by mouth once daily Active ALPRAZolam (XANAX) 0.5 MG tablet Take 0.5 mg by mouth at bedtime Active Active Problems Problem Noted Date Diagnosed Date Transient cerebral ischemic attack 2017 Fall 03/08/2014 Dizziness and giddiness 03/08/2014 Occlusion and stenosis of unspecified carotid ar shannon 03/02/2013 Type 2 diabetes mellitus with diabetic neuropath y 01/13/2013 Essential (primary) hypertension 01/13/2013 Cardiac arrhythmia 01/13/2013 Overview (09/06/2017): History - Cerebral infarction 01/13/2013 Overview (09/06/2017): R caudate and putamen stroke Type 2 diabetes mellitus without complications 0 01/13/2013 Stenosis of left carotid artery Family History Medical History Relation Name Comments Hypertension Daughter High Cholesterol Father CVA Maternal Grandmother Diabetes Maternal Grandmother CVA Mother Diabetes Mother High Cholesterol Mother Hypertension Mother Relation Name Status Comments Daughter Father Maternal Grandmother Mother Social History Tobacco Use Types Packs/Day Years Used Date Smoking Tobacco: Former Cigarettes Q uit: 03/08/2002 Smokeless Tobacco: Never Alcohol Use Standard Drinks/Week Comments Yes 0 (1 standard drink = 0.6 oz pur e alcohol) Sex and Gender Information Value Date Recorded Sex Assigned at Not on file Gender Identity Not on file Sexual Orientation Not on file Last Filed Vital Signs Vital Sign Reading Time Taken Comments Blood Pressure 118/58 07/23/2020 11:30 AM [employer] Pulse 74 07/23/2020 11:30 AM [employer] Temperature 36.5 ??C (97.7 ??F) 07/23/2020 10:[address] Respiratory Rate 6 07/23/2020 11:30 AM [employer]OR Oxygen Saturation 94% 07/23/2020 11:30 AM [employer] Inhaled Oxygen Concentration - - Weight 70.8 kg (156 lb) 07/23/2020 8:34 AM [employer] Height 157.5 cm (5' 2 ) 07/23/2020 8:34 AM [employer] Body Mass Index 28.53 07/23/2020 8:34 AM [employer]UC[employer]OR Plan of Treatment Health Maintenance Due Date Last Done Comments BONE DENSITY TESTING 1950 COLOGUARD (AGES 45-75) - COLON CA SCREENING 1952 COLON MONITORING 1952 COLONOSCOPY - COLON CA SCREENING 1952 CT COLONOGRAPHY - COLON CA SCREENING 1950 Colorectal Cancer Screening 1950 FIT - COLON CA SCREENING 1952 FLEX SIG - COLON CA SCREENING 1950 MAMMOGRAM 1950 MEDICARE AWV ? 12 MONTHS 1950 HEPATITIS C SCREENING 02/25/1970 DTAP/TDAP/TD VACCINES (1 - Tdap) 1971 PNEUMOCOCCAL VACCINE 50+ (1 of 2 - PCV) 1971 ZOSTER VACCINE (1 of 2) 2002 Respiratory Syncytial Virus (RSV) Vaccine Pt: or over 60 yrs (1 - Risk 60-74 years 1-dose series) 2012 DIABETES RETINOPATHY SCREENING 06/27/2020 DIABETES-FOOT EXAM WITH MONOFILAMENT 06/27/2020 DIABETES-HGB A1C 10/09/2020 04/11/2020, 01/12/2013 DIABETES-SERUM CREATININE 07/23/20212020, 04/11/2020, 04/11/2020, Additional history exists COVID-19 VACCINE (2 - 2023- season) 2024 07/09/2020 INFLUENZA VACCINE (#1) 2024 0, 03/08/2018, 03/04/2017, Additional history exists DEPRESSION SCREENING 06/07/2024 DIABETES - URINE PROTEIN SCREENING 06/07/2024 04/11/2020 HEPATITIS B VACCINE Aged Out No longe r eligible based on patient's age to complete this topic HIB VACCINE Aged Out No longer eligi ble based on patient's age to complete this topic HPV VACCINE Aged Out No longer eligi ble based on patient's age to complete this topic MENINGOCOCCAL (Group B) VACCINE Aged Out No longer eligible based on patient's age to complete this topic MENINGOCOCCAL VACCINE Aged Out No edis jaya eligible based on patient's age to complete this topic Procedures Procedure Name Priority Date/Time Associated Diagnosis Comments BASIC METABOLIC PANEL (CALCIUM TOTAL) STAT 07/23/2020 8:14 AM [employer] Preop examination HEMOGLOBIN A1C Routine 01/12/2013 2:30 AM CDT from Last 3 Months or Most Recently Relevant to Health Maintenance Results * (ABNORMAL) BASIC METABOLIC PANEL (CALCIUM TOTAL) (07/23/2020 8:14 AM [employer]UCATION [employer]OR) BUN 13 7 - 26 mg/dL 07/23/2020 8:48 AM [facility] Creatinine 0.7 0.6 - 1.2 mg/dL 07/23/2020 8:48 AM [facility] Sodium 141 136 - 145 mmol/L 07/23/2020 8:48 AM [facility] Potassium 3.3(L) 3.5 - 4.5 mmol/L 07/23/2020 8:48 AM [facility] Chloride 106 98 - 107 mmol/L 07/23/2020 8:48 AM [facility] CO2 24 22 - 29 mmol/L 07/23/2020 8:48 AM [facility] Glucose 167(H) 70 - 115 mg/dL 07/23/2020 8:48 AM [facility] Calcium 8.5 8.4 - 10.2 mg/dL 07/23/2020 8:48 AM [facility] Anion Gap 14 8 - 18 07/23/2020 8:48 AM [facility] BUN/Creatinine Ratio 19 7 - 23 07/23/2020 8:48 AM [facility] Osmolality Calculated 296 270 - 300 mOsm/kg 07/23/2020 8:48 AM [facility] eGFR >60 >60 mL/min/1.7 3 m2 07/23/2020 8:48 AM [facility] Blood BLOOD SPECIMEN / Unknown Venipuncture / Unknown 07/23/2020 8:14 AM [employer] 07/23/2020 8:18 AM [employer] Rod Olivas MD LAB - CHEMISTRY [facility] [address] [place] [address], [facility] [phone] * (ABNORMAL) HEMOGLOBIN A1C (01/12/2013 2:30 AM CDT) Hemoglobin A1c 7.1(H) 4.4 - 6.3 % [facility] Estimated Average Glucose 157 mg/dL [facility] Blood specimen (specimen) 01/12/2013 2:30 AM CDT 01/12/2013 2:55 AM CDT Arturo Ernst MD LAB - CHEMISTRY [facility] [address] [place] [address], [facility] [phone] from Last 3 Months or Most Recently Relevant to Health Maintenance Care Teams [employer] Plant Custodian Relationship Specialty Start Date End Date Júnior Puente MD [address] [place] [address] PCP - General 03/02/14
--- OUTSIDE RECORDS SUMMARY | 2024-07-07 11:43 | XMS_ITS | Referral Summary ---
Author Organization [facility] [address] Address [address] [place] [address] Care Team Providers Care Airport Ramp Supervisor Name Role Phone Jad Fisher MD Primary Care Provider [phone] Chang Ward MD Unavailable Encounters Date Type Department Care Team Description 06/28/2024 Telephone [facility] Specialists of [address] [place] [phone] Raj Stoddard MD [employer] 06/22/2024 11:00 AM TANK CAR INSPECTOR Office Visit [facility] 6th [place] [address] Syeda Fernandez MD Arthritis of carpometacarpal (CMC) joint of left thumb (Primary Dx); Trigger finger of left thumb; Left carpal tunnel syndrome 06/08/2024 11:15 AM TANK CAR INSPECTOR Office Visit [facility] Special[facility] of [address] [place] [phone] Raj Stoddard MD Type 2 diabetes mellitus with hyperglycemia, with long-term current use of insulin (HCC) (Primary Dx) 05/08/2024 Telephone [facility] Special[facility] of [address] [place] [phone] Raj Stoddard MD Forms/questionnaires ([employer]) 05/03/2024 Telephone [facility] [address] [place] [phone] Jad Fisher MD Appointment Request 04/29/2024 11:22 AM TANK CAR INSPECTOR - 05/01/2024 11:02 AM TANK CAR INSPECTOR Hospital Encounter [facility] [address] [place] [address] Ruel Fernández MD Sinha, Chandni, MD Sargsyan, Narine, MD Troponin level elevated (Primary Dx); Congestion of upper respiratory tract; Urinary frequency; Generalized weakness; COVID-19 Discharge Disposition: Discharge to home or self care 04/29/2024 11:04 AM TANK CAR INSPECTOR - 04/29/2024 11:59 PM TANK CAR INSPECTOR Hospital Encounter [facility] Emergency, Room R Discharge Disposition: Discharge to home or self care 04/25/2024 Telephone [facility] [address] [phone] Jad Fisher MD Medical Question/Miscellaneous 04/21/2024 Telephone [facility] [address] [phone] Jad Fisher MD Medical Question/Miscellaneous 04/12/2024 10:30 AM TANK CAR INSPECTOR Office Visit [facility] [address] [phone] Mer Simpson NP Age-related osteoporosis without current pathological fracture (Primary Dx); BMI 29.0-29.9,adult; Hypertension associated with stage 2 chronic kidney disease due to type 2 diabetes mellitus ([facility]/HCC) ([facility]) 04/07/2024 Telephone [facility] [address] [phone] Jad Fisher MD Medical Question/Miscellaneous 04/06/2024 Telephone [facility] [address] [phone] Jad Fisher MD Medical Question/Miscellaneous from Last 3 Months Allergies Active Allergy Reactions Criticality Noted Date Comments Niacin Other (See comments) Low Reaction: Leg cramps, Pravastatin Itching Low Simvastatin Other (See comments) Low Reaction: Leg cramps, Medications cholecalciferol (VITAMIN D-3) 1,000 unit tablet Take 1 tablet (1,000 Units total) by mouth daily Active biotin 1 mg tablet Take 1 tablet (1,000 mcg total) by mouth daily 04/16/20 16 Active aspirin 81 mg chewable tablet Take 1 tablet (81 mg total) by mouth daily 03/02/20 17 Active ALPRAZolam (XANAX) 0.25 mg tablet Take 1 tablet (0.25 mg total) by mouth 3 (three) times a day as needed for anxiety (Do not take with hydorocdone.) 45 tablet 05/20/20 22 Active Droplet Pen Needle 31 gauge x 3/16 needle 08/18/19 23 Active pen needle, diabetic (BD Ultra-Fine Mini Pen Needle) 31 gauge x 316 needle USE TO TAKE INSULIN 4 X DAY 200 each 11 09/16/19 23 Active donepeziL (ARICEPT) 10 mg tablet Take 1 tablet (10 mg total) by mouth nightly 09/18/19 23 Active polyethylene glycol (MIRALAX) 17 gram/dose powder Take 17 g by mouth 3 (three) times a day as needed (Constipation) 1-3 times per day as needed for constipation (oxycodone causes constipation) 1700 g 11/20/19 23 Active blood-glucose sensor (Dexcom G7 Sensor) device Active insulin aspart (NovoLOG) 100 unit/mL (3 mL) pen for injection Inject 8 Units under the skin 3 (three) times a day before meals 15 mL 2 04/19/20 23 Active oxyBUTYnin XL (DITROPAN-XL) 10 mg 24 hr tablet Take 1 tablet (10 mg total) by mouth daily 03/26/20 23 Active clopidogreL (PLAVIX) 75 mg tablet TAKE 1 TABLET EVERY DAY 90 tablet 3 10/28/19 24 Active insulin glargine 100 unit/mL (3 mL) pen for injection Inject 30 Units under the skin 2 (two) times a day 45 mL 4 12/08/19 24 Active lisinopriL (PRINIVIL,ZESTRI L) 40 mg tablet TAKE 1 TABLET EVERY DAY 90 tablet 3 02/09/20 24 Active busPIRone (BUSPAR) 7.5 mg tablet TAKE 1 TABLET THREE TIMES DAILY 300 tablet 1 03/11/20 24 Active alendronate (FOSAMAX) 70 mg tabletIndication s:Post-Menopausa l Osteoporosis Take 1 tablet (70 mg total) by mouth every 7 days Take in the morning with a full glass of water, on an empty stomach, and do not take anything else by mouth or lie down for the next 30 min. 12 tablet 3 04/18/20 24 025 Active guaiFENesin-dext romethorphan ER (MUCINEX DM) 600-30 mg tablet extended release 12 hr Take 1 tablet by mouth 2 (two) times a day 28 tablet 05/01/20 24 Active fluticasone propionate (FLONASE) 50 mcg/actuation nasal spray Administer 2 sprays into each nostril 2 (two) times a day 1 each 05/01/20 24 Active rosuvastatin (CRESTOR) 40 mg tablet TAKE 1 TABLET EVERY DAY 90 tablet 3 05/26/20 24 Active semaglutide (OZEMPIC) 1 mg/dose (4 mg/3 mL) pen injector injection Inject 1 mg under the skin once a week 9 mL 3 06/08/19 25 Active gabapentin (NEURONTIN) 300 mg capsuleIndicatio ns:Type 2 diabetes mellitus with diabetic neuropathy, with long-term current use of insulin (HCC) TAKE 1 CAPSULE BY MOUTH THREE TIMES A DAY 90 capsule 11 05/28/20 23 025 Discontin ued(Other ) semaglutide (OZEMPIC) 2 mg/dose (8 mg/3 mL) pen injector injection Inject 2 mg under the skin every 7 days 3 mL 3 02/24/20 24 025 Discontin ued(Other ) DULoxetine DR (CYMBALTA) 60 mg capsule TAKE 1 CAPSULE EVERY DAY 100 capsule 1 03/11/20 24 025 Discontin ued(Other ) Active Problems Problem Noted Date Diagnosed Date Troponin level elevated 04/29/2024 COVID 04/29/2024 Age-related osteoporosis wit hout current pathological fracture 04/12/2024 Assessment & Plan (04/12/2024 11:22 AM TANK CAR INSPECTOR): Started on Fosamax. Continue taking vitamin D. Continue following with dentist. Encouraged weight bearing exercises. Repeat Dexa scan in 2 years. Red flags reviewed. Edema of left lower extremity 02/24/2024 Assessment & Plan (02/24/2024 11:07 AM CDT): Intermittent edema unilaterally. Will have stat Doppler to rule out DVT. Postmenopausal 02/24/2024 Assessment & Plan (02/24/2024 11:07 AM CDT): Bone density scan ordered. Will plan accordingly once results are received. Continue with calcium and vitamin-D. Encounter for Medicare annual wellness exam 02/05 Assessment & Plan (02/24/2024 11:07 AM CDT): Visit preventive in nature. We reviewed medications, chronic conditions, risk factors, lifestyle recommendations. Reviewed immunization recommendations. Follow-up in 6 months for chronic conditions and 1 year for annual wellness. Screening mammogram for breast cancer 02/24/2024 Assessment & Plan (02/24/2024 11:07 AM CDT): Mammogram ordered. Will plan accordingly once results are received. Right flank pain 12/31/2023 Assessment & Plan (12/31/2023 6:33 PM CDT): Symptoms occurring intermittently for the past 1 month. UA/culture ordered today. CT abdomen/pelvis ordered today to rule out kidney stone. Encouraged patient to drink plenty of water. Reviewed signs that would warrant her to follow-up and/or present to the emergency department. Such as fevers, nausea, vomiting, or changes in pain intensity Constipation 12/31/2023 Assessment & Plan (12/31/2023 6:30 PM CDT): Patient to push fluids, instructed her to drink at least 64 oz of water/day. Gradually increase p.o. fiber intake, 20 g/day. Patient reports she typically goes 3 days without having a bowel movement, occasionally has loose stools that are uncontrolled when this happens. Discussed my concerns for underlying constipation. Patient to start MiraLax 1 capful once daily daily, can take 2 capfuls/day if no bm. Will monitor response to treating underlying constipation, follow-up if no improvement or if symptoms persist. Pain of left heel 12/31/2023 Assessment & Plan (12/31/2023 6:32 PM CDT): Prescribed prednisone taper today. Patient to perform gentle stretching/range of motion exercises as tolerated. Encouraged her to wear supportive footwear with arch support. Will check uric acid with labs. She is aware to monitor glucose with use of prednisone. Last A1c = 7.9 % BMI 29.0-29.9,adult 12/31/2023 Assessment & Plan (12/31/2023 6:30 PM CDT): Encouraged healthy diet and regular exercise. Ganglion cyst 10/20/2023 Assessment & Plan (10/20/2023 5:17 PM CDT): Will place referral to hand specialist for evaluation and treatment. Avoid aggravating activities. She is agreeable and states understanding. Bilateral impacted cerumen 09/13/2023 Assessment & Plan (10/20/2023 5:18 PM CDT): Curette cleared ear canals. Tolerated well. TM normal once able to be visualized. Discussed warm water irrigation at home. Insert nothing into ear canal. Monitor area of tenderness. RTC for any signs of infection or skin changes. She is agreeable plan and states understanding. Assessment & Plan (09/13/2023 12:01 PM CDT): Curette cleared ear canals. Tolerated well. TM normal once able to be visualized. Discussed warm water irrigation at home. Insert nothing into ear canal. Strep pharyngitis 09/13/2023 Assessment & Plan (09/13/2023 12:01 PM CDT): Abx sent. Aware to complete entire course of abx. To change toothbrush in 72 hours. May use warm salt water gargles for pain or otc chloraseptic spray/lozenges. otc tylenol/ibuprofen prn pain/fever. Reviewed red flags; to go to ER if any drooling or difficulty breathing. Push fluids, relative rest. BMI 28.0-28.9,adult 09/13/2023 Pre-op testing 06/25/2023 Closed fracture of left distal radius 11/20/2022 Closed fracture of lower end of left ulna 2022 Assessment & Plan (11/20/2022 6:27 PM CDT): Neurovascularly intact on exam. Reviewed ER evaluation and imaging. Patient unable to schedule with orthopedic surgery. Updated referral and reached out to [facility] orthopedic surgery Dr. Ward, plan for office visit with surgeons office Wednesday11/24/22 with tentative surgery on 11/26/22. Patient is aware. Instructed to hold plavix and aspirin starting 11/22/22. Denies history of complication with anesthesia. Denies COPD/asthma, DEEPAK.. PMHx includes htn, dm, cva, carotid artery disease . Former smoker, quit 20 years ago. Cleared for surgery. BMI 26.0-26.9,adult 08/18/2022 Assessment & Plan (08/18/2022 10:52 AM CDT): Discussed healthy diet and importance of regular physical activity (20- 30min/day, 150min/wk). Sedentary lifestyle. Asked her to increase her activity. Hyperlipidemia associated with type 2 diabetes ramona jefferson 08/17/2022 Assessment & Plan (02/24/2024 10:55 AM CDT): Continue taking Rosuvastatin. Monitor diet and increase exercise. Reviewed red flags. Assessment & Plan (12/16/2023 10:21 AM CDT): Chronic problem, currently taking Rosuvastatin 40mg. Last lipid panel: 02/19/23 LDL=73, KB=907. No changes at this time. Assessment & Plan (08/12/2023 11:01 AM TANK CAR INSPECTOR): Chronic, stable LDL cholesterol goal Continue rosuvastatin Assessment & Plan (05/04/2023 10:39 AM TANK CAR INSPECTOR): Chronic problem, currently taking Rosuvastatin 40mg. Last lipid panel: 02/19/23 LDL=73, WJ=445. No changes at this time. Assessment & Plan (01/19/2023 10:03 AM CDT): Chronic, well controlled Continue Rosuvastatin Assessment & Plan (08/18/2022 10:33 AM CDT): Chronic problem, currently taking Rosuvastatin 40mg. Last lipid panel: 01/30/22 LDL=62, JZ=430. No changes at this time. Hypertension associated with stage 2 chronic kidney disease due to type 2 diabetes mellitus ([facility]) 08/17/2022 Assessment & Plan (04/12/2024 11:42 AM TANK CAR INSPECTOR): Normotensive. Continue taking lisinopril. Red flags reviewed. Assessment & Plan (12/16/2023 10:21 AM CDT): Chronic problem, BP controlled on current lisinopril 40mg daily. No changes at this time. Assessment & Plan (09/13/2023 11:43 AM CDT): Normotensive. Continue lisinopril, clonidine. Will continue monitor. Assessment & Plan (05/04/2023 10:39 AM TANK CAR INSPECTOR): Chronic problem, BP controlled on current lisinopril 40mg daily. No changes at this time. Assessment & Plan (08/18/2022 10:33 AM CDT): Chronic problem, BP controlled on current quinapril 40mg daily. No changes at this time. Mild cognitive impairment 05/28/2022 Assessment & Plan (05/28/2022 4:07 PM TANK CAR INSPECTOR): Patient started on donepezil around 01/2022 and states she is doing much better with memory and functionality. She states she is less forgetful and denies disorientation or problems with short term memory. Continue on current plan donepezil 5mg. SLUMS=29 Moderate episode of recurrent major depressive d isorder 11/28/2021 Recurrent falls 10/17/2021 Anxiety and depression 10/16/2021 Fibromyalgia 10/16/2021 Non-alcoholic fatty liver disease 10/16/2021 OAB (overactive bladder) 10/16/2021 Assessment & Plan (12/31/2023 6:26 PM CDT): Denies any increased frequency, urgency or burning with urination. Continues oxybutynin. Encouraged patient to follow-up with urology. Stenosis of left carotid artery 05/04/2021 Osteoarthrosis 05/04/2021 Ingrown toenail of right foot 03/17/2021 Polyneuropathy due to type 2 diabetes mellitus ( [facility]) 03/17/2021 Assessment & Plan (12/16/2023 10:21 AM CDT): Chronic problem. Currently taking Gabapentin 300mg bid. Reviewed foot care; needs to lotion daily. Aware to check feet nightly, not to go barefoot. Assessment & Plan (08/12/2023 11:00 AM TANK CAR INSPECTOR): Foot care discussed Continue gabapentin Assessment & Plan (05/04/2023 11:00 AM TANK CAR INSPECTOR): Chronic problem. Currently taking Gabapentin 300mg bid. Aware to check feet nightly & not go barefoot. Assessment & Plan (01/19/2023 10:01 AM CDT): Foot care discussed Increase gabapentin 300 mg tid Pain of toe of right foot 03/17/2021 Cramps of lower extremity 09/16/2020 Mesenteric artery stenosis ([facility]/HCC) 09/16/2020 Renal artery stenosis 09/16/2020 Chest pain 09/11/2020 Diplopia 04/05/2020 Left anterior cruciate ligament tear 12/08/2019 Sprain of medial collateral ligament of left kne e 12/01/2019 Status post total right knee replacement 019 S/P carotid endarterectomy 01/30/2019 Elevated sed rate 01/14/2019 Peripheral vascular disease 01/14/2019 History of stroke 02/07/2016 Overview (09/10/2016): History of stroke Assessment & Plan (11/20/2022 6:11 PM CDT): History of stroke, occlusion of left carotid s/p stent to a vertebral and also right carotid endarterectomy. Previously following with [facility]. Continues secondary prevention with dapt. Instructed patient to stop taking Plavix and aspirin starting Wednesday 11/22. Coronary arteriosclerosis in syc[place] artery 02/06 Overview (09/11/2016): CAD in syc[place] artery Impairment of balance 02/07/2016 Overview (09/11/2016): Balance disorder Episodic lightheadedness 03/08/2014 Fall at home, initial encounter 03/08/2014 Heart disease 10/21/2013 Overview (12/25/2021): HYPERTENSION NOS Occlusion and stenosis of unspecified carotid ar shannon 03/02/2013 Overview (05/04/2021): Carotid disease, bilateral Diabetes mellitus 01/13/2013 Overview (12/25/2021): DMII WO CMP UNCNTRLD Overview: DMII WO CMP UNCNTRLD Overview: DMII WO CMP UNCNTRLD Assessment & Plan (06/08/2024 12:04 PM TANK CAR INSPECTOR): Chronic, uncontrolled with a higher A1c Importance of diet and exercise discussed Restart Ozempic I sent a prescription for 1 mg pens Samples of 0.5 mg pens were provided I advised the patient also to take the NovoLog before breakfast and dinner, due to his postprandial hyperglycemia Continue glargine at current dose Assessment & Plan (02/24/2024 11:06 AM CDT): Continue taking insulin aspart and glargine. Increase Ozempic to 2 mg weekly. Reviewed red flags. Continue following with endocrinology. Assessment & Plan (12/16/2023 10:27 AM CDT): Chronic problem. A1c worsened from 7.0% 08/12/23 to now 7.9%. was out of insulin X2+ weeks & could not get refills. Current medications: Farxiga 10mg daily Ozempic 1mg weekly Lantus 30 units twice daily Novolog 8 units 3 times daily with meals If sugars over 200: take 10 units UTD on labs. UTD on DM eye exam (10/19/23). Strive for regular exercise (30min most days) and diet (get at least 4-5 servings of fruit and veggies daily, avoid processed foods, increase lean protein intake and decrease carb portions as well as fruit juices, regular soda & desserts). Watch carbs and simple sugars. Check the blood sugar CGM. Check the feet daily for skin breakdown and infection. Assessment & Plan (10/20/2023 5:17 PM CDT): She follows closely with Endocrinology. Did recommend regular visits with Podiatry and she is agreeable. Referral placed. Assessment & Plan (08/12/2023 11:00 AM TANK CAR INSPECTOR): Chronic, stable but not at goal Importance of diet and exercise discussed Continue current regimen with Levemir, Humalog, Ozempic and Farxiga Patient interested in an insulin pump Will get C-peptide, fasting glucose and galne antibody If appropriate, will start process for insulin pump Assessment & Plan (05/04/2023 10:58 AM TANK CAR INSPECTOR): Chronic problem. A1c improved from 8.0% 01/2023 to now 7.0%. Current medications: Farxiga 10mg daily Ozempic 1mg weekly Levemir 25 units twice daily Novolog taking 10 units 3 times daily only if sugars over 200. UTD on labs. UTD on DM eye exam (07/2022). Strive for regular exercise (30min most days) and diet (get at least 4-5 servings of fruit and veggies daily, avoid processed foods, increase lean protein intake and decrease carb portions as well as fruit juices, regular soda & desserts). Watch carbs and simple sugars. Check the blood sugar Freestyle rafaela. Check the feet daily for skin breakdown and infection. Assessment & Plan (11/20/2022 6:14 PM CDT): Lab Results Component Value Date HGBA1C 7.3 (H) 10/19/2022 HGBA1C 8.2 (H) 07/28/2022 HGBA1C 9.1 05/08/2022 Improving; managed by endocrinology. Assessment & Plan (08/18/2022 11:01 AM CDT): Chronic problem, not at goal but improvement noted on rafaela download. BS elevating after breakfast & staying elevated throughout day (climbing). Only taking mealtime insulin at breakfast & dinner. Will add lunchtime insulin. (03/14/10) Current medications: Farxiga 10mg daily Ozempic 1mg weekly Levemir 30 units twice daily Novolog, 10 units before breakfast, 8 units before lunch and 10 units before dinner If your sugars are over 180 , take 12 units If your sugars are over 240, take 14 units If your sugars are over 300, take 16 units Discussed the need to strive for regular exercise (30min most days) and diet (get at least 4-5 servings of fruit and veggies daily, avoid processed foods, increase lean protein intake and decrease carb portions as well as fruit juices, regular soda & desserts). Watch carbs and simple sugars. Check the blood sugar 1-2 times per day. Check the feet daily for skin breakdown and infection. Will start gabapentin for neuropathy. 300mg qhs initially x 1 week & then increase to bid prn. Asked her to scan Rafaela more often, missing times (scan bedtime, when you get up & 2x during the daytime hours). Assessment & Plan (07/09/2022 4:06 PM TANK CAR INSPECTOR): Hba1c was Lab Results Component Value Date HGBA1C 9.1 05/08/2022 today, indicating poor DM control Goal Hba1c and blood glucose explained Diet and exercise were advised Prevention and treatment of hyypoglcyemia were discussed with the patient Blood glucose monitoring : FSL Adjustment to medications: Increase Levemir to 30 units twice a day Take Novolog, 10 units before breakfast and dinner If your sugars are over 180 , take 12 units If your sugars are over 240, take 14 units If your sugars are over 300, take 16 units Start Farxiga, 10 mg in the morning Stay on Ozempic 1 mg weekly Stop Glucotrol and Tradjenta Send me a message every week, via On[employer], to let me know how you are doing with your sugars and for us to look at your sugars on Freestyle Rafaela Cardiac arrhythmia 01/13/2013 Overview (05/04/2021): History - Overview: History - Cerebral infarction 01/13/2013 Overview (05/04/2021): R caudate and putamen stroke Irregular heart rhythm 01/13/2013 Overview (05/04/2021): Overview: History - Type 2 diabetes mellitus with diabetic neuropath y ([facility]) 01/13/2013 Assessment & Plan (09/13/2023 11:42 AM CDT): Last A1c 7.0%. Continues following with endocrinology. Assessment & Plan (01/19/2023 10:02 AM CDT): Hba1c was Lab Results Component Value Date HGBA1C 8.0 01/19/2023 today, indicating inadequate DM control, with hypo and hyperglycemia Goal Hba1c and blood glucose explained Diet and exercise were advised Prevention and treatment of hyypoglcyemia were discussed with the patient Blood glucose monitoring : FSL 3 CGM Adjustment to medications: Take Novolog, before your meals : take 8 units ( even if your sugars are under 150, you need to take it ) If your sugars are over 200, take 10 units Stay on Ozempic and Farxiga Will consider an insulin pump Cerebrovascular accident (CVA) 01/11/2013 Overview (05/04/2021): Overview: R caudate and putamen stroke Overview: R caudate and putamen stroke Assessment & Plan (05/28/2022 4:08 PM TANK CAR INSPECTOR): Continues tight control of BP, statin and asa therapy. Spinal stenosis 04/19/2012 Lumbago 04/19/2012 Hyperlipidemia 09/21/2011 Overview (05/04/2021): MIXED HYPERLIPIDEMIA Palpitations 06/05/2008 Overview (09/10/2016): PALPITATIONS Ventricular premature depolarization 06/05/2008 Overview (04/28/2022): PVCs Resolved Problems Problem Noted Date Diagnosed Date Resolved Date Dehydration 10/16/2021 05/28/2022 Heat stress 10/16/2021 05/28/2022 Acute cystitis without hematuria 04/05/2020 05/28/2022 Gait disturbance 10/24/2019 05/28/2022 Falls 10/10/2019 05/28/2022 Preoperative cardiovascular examination 01/30/2019 10/10/2019 Obesity with body mass index 30 or greater 02/07/2016 08/17/2022 Overview (09/10/2016): Obesity (BMI 30-39.9) Dizziness and giddiness 03/08/201405/08 Pure hypercholesterolemia 10/21/2013 Overview (09/12/2016): PURE HYPERCHOLESTEROLEM Atherosclerosis of coronary artery 01/23/2013 11/01/2017 Overview (09/12/2016): COR ATH UNSP VSL NTV/GFT Hypertension 01/13/2013 08/17/2022 Overview (12/25/2021): Essential hypertension Overview: Essential hypertension Immunizations Name Administration Dates Next Due Influenza, Quadrivalent, Hig h Dose, Preservative Free, Intrr 02/18/2023,05/28/2022,03/08/2018,03/04 Influenza, Quadrivalent, Rec ombinant, Egg Free, Preservative Free, Intramuscular 03/20/2020 Influenza, Quadrivalent, Spl it, Preservative Free, Intramuscular 02/19/2021,04/05/2016 Influenza, Trivalent, High D ose, Split, Preservative Free, Intramuscular 02/24/2024,03/08/2018,03/04/2017 Pneumococcal Conjugate PCV 13 03/04/2017 Pneumococcal Polysaccharide PPV23 03/08/2018 Social History Tobacco Use Types Packs/Day Years Used Date Smoking Tobacco: Former Cigarettes Q uit: 04/19/2002 Smokeless Tobacco: Never Tobacco Cessation:Counseling Given: Not Answered Alcohol Use Standard Drinks/Week Comments Yes 1 (1 standard drink = 0.6 oz pur e alcohol) socially every 3-6 months Humiliation, Afraid, Rape, and Kick questionnair e Answer Date Recorded Within the last year, have y ou been afraid of your partner or ex-partner? No 08/20/2022 Within the last year, have y ou been humiliated or emotionally abused in other ways by your partner or ex-partner? No Within the last year, have y ou been kicked, hit, slapped, or otherwise physically hurt by your partner or ex-partner? No 08/20/2022 Within the last year, have y ou been raped or forced to have any kind of sexual activity by your partner or ex-partner? No 08/20/2022 Social Connection and Isolat ion Panel [NHANES] Answer Date Recorded In a typical week, how many times do you talk on the phone with family, friends, or neighbors? More than three times a week 08/20/2022 How often do you get togethe r with friends or relatives? More than three times a week 08/20/2022 How often do you attend chur ch or oriental orthodox services? 1 to 4 times per year 08/20/2022 Do you belong to any clubs o r organizations such as temple groups, unions, fraternal or athletic groups, or school groups? No 08/20/2022 How often do you attend meet ings of the clubs or organizations you belong to? Never 08/20/2022 Are you , , di vorced, , never , or living with a partner? 08/20/2022 AUDIT-C Answer Date Recorded Q1: How often do you have a drink containing alcohol? Never 06/08/2024 Q2: How many drinks containi ng alcohol do you have on a typical day when you are drinking? Patient does not drink Q3: How often do you have si x or more drinks on one occasion? Never 06/08/2024 Overall Financial Resource Strain (CARDIA) Answe r Date Recorded How hard is it for you to pa y for the very basics like food, housing, medical care, and heating? Not hard at all 08/20/2022 PHQ-2 Answer Date Recorded PHQ-2 Total Score (If total score is 3 or more points, staff should administer the PHQ-9) 0 06/08/2024 [facility] - Occupational Stress Questionnaire Answer Date Recorded Do you feel stress - tense, restless, nervous, or anxious, or unable to sleep at night because your mind is troubled all the time - these days? To some extent 08/20/2022 Exercise Vital Sign Answer Date Recorde d On average, how many days pe r week do you engage in moderate to strenuous exercise (like a brisk walk)? 0 days 08/20/2022 On average, how many minutes do you engage in exercise at this level? 0 min 08/20/2022 Hunger Vital Sign Answer Date Recorded Within the past 12 months, y ou worried that your food would run out before you got the money to buy more. Never true 08/21/19 23 Within the past 12 months, t he food you bought just didn't last and you didn't have money to get more. Never true 08/20/2022 PRAPARE - Transportation Answer Date Re corded In the past 12 months, has l ack of transportation kept you from medical appointments or from getting medications? No 08/05 In the past 12 months, has l ack of transportation kept you from meetings, work, or from getting things needed for daily living? No 08/20/2022 Housing Stability Vital Sign Answer [place] e Recorded In the last 12 months, was t here a time when you were not able to pay the mortgage or rent on time? No 08/20/2022 In the last 12 months, how many places have you lived? 1 08/20/2022 In the last 12 months, was t here a time when you did not have a steady place to sleep or slept in a residential (including now)? No 08/20/2022 Personal Safety Answer Date Recorded Have you ever been in or are you currently in a harmful physical or emotional relationship or is someone making you feel afraid or unsafe? Denies 04/29/2024 Comments No Sex and Gender Information Value Date Recorded Sex Assigned at Not on file Legal Sex Female 6:13 AM TANK CAR INSPECTOR Gender Identity Not on file Sexual Orientation Straight 06/08/2024 11 :24 AM TANK CAR INSPECTOR Last Filed Vital Signs Vital Sign Reading Time Taken Comments Blood Pressure 132/70 06/08/2024 11:34 AM TANK CAR INSPECTOR Pulse 88 06/08/2024 11:34 AM TANK CAR INSPECTOR Temperature 36.2 ??C (97.2 ??F) 05/01/2024 7:45 AM CS T Respiratory Rate 20 06/08/2024 11:34 AM TANK CAR INSPECTOR Oxygen Saturation 97% 05/01/2024 7:45 AM TANK CAR INSPECTOR Inhaled Oxygen Concentration - - Weight 76.8 kg (169 lb 6.4 oz) 06/08/2024 11:34 AM TANK CAR INSPECTOR Height 154.9 cm (5' 1 ) 06/08/2024 11:34 AM TANK CAR INSPECTOR Body Mass Index 32.01 06/08/2024 11:34 AM TANK CAR INSPECTOR Plan of Treatment Not on file Medical Devices Implanted Type Area University Relations Recruiter Device Identifier Shelf Expiration Date Model / Serial / Lot [employer] Dvr [id number] Crosslock Newberg Screw Hole Fix Angle Radius Left 1318-21-050 - [id number] Implanted:Qty: 1 on 11/26/2022 by Chang Ward MD at [facility] Left: Wrist [employer] 1318--050 / / [employer] Dvr 2.7mm 18mm 3 Lead Thread Lock Taper Head Radius Distal Volar 131- - [id number] Implanted:Qty: 1 on 11/26/2022 by Chang Ward MD at [facility] Left: Wrist [employer] 1312-- / / [employer] Dvr 2.7mm 20mm Lock Spine Screw Bone Nonsterile 131--120 - [id number] Implanted:Qty: 2 on 11/26/2022 by Chang Ward MD at [facility] Left: Wrist [employer] 1312-27-120 / / [employer] 2.7mm 13mm Nonlock Low Profile Radius Distal Screw Bone [id number] - [id number] Implanted:Qty: 1 on 11/26/2022 by Chang Ward MD at [facility] Left: Wrist [employer] [id number] / / [employer] Dvr 2.7mm 14mm Lock Cortical Screw Bone Nonsterile Latex Free 1311-27-114 - [id number] Implanted:Qty: 2 on 11/26/2022 by Chang Ward MD at [facility] Left: Wrist [employer] 1312-27-114 / / [employer] Dvr 2.7mm 13mm Lock 3 Lead Thread Crosslock Taper Head Radius 131-27- - [id number] Implanted:Qty: 1 on 11/26/2022 by Chang Ward MD at [facility] Left: Wrist [employer] 1312-27-113 / / Procedures Procedure Name Priority Date/Time Associated Diagnosis Comments POCT GLUCOSE Routine 06/08/2024 11:35 AM TANK CAR INSPECTOR Type 2 diabetes mellitus with hyperglycemia, with long-term current use of insulin (HCC) POCT HEMOGLOBIN A1C Routine 06/08/2024 1 1:35 AM TANK CAR INSPECTOR Type 2 diabetes mellitus with hyperglycemia, with long-term current use of insulin (HCC) POCT GLUCOSE DEVICE Routine 05/01/2024 7 :41 AM TANK CAR INSPECTOR EGFR Routine 05/01/2024 4:27 AM TANK CAR INSPECTOR DIFFERENTIAL AUTO Routine 05/01/2024 4:2 7 AM TANK CAR INSPECTOR COMPREHENSIVE METABOLIC PANEL Routine 05/01/2024 4:27 AM TANK CAR INSPECTOR CBC WITH AUTO DIFFERENTIAL Routine 05/01/2024 4:27 AM TANK CAR INSPECTOR PHOSPHORUS Routine 05/01/2024 4:27 AM TANK CAR INSPECTOR MAGNESIUM Routine 05/01/2024 4:27 AM TANK CAR INSPECTOR POCT GLUCOSE DEVICE Routine 05/01/2024 1 :55 AM TANK CAR INSPECTOR POCT GLUCOSE DEVICE Routine 04/30/2024 8 :40 PM TANK CAR INSPECTOR POCT GLUCOSE DEVICE Routine 04/30/2024 4 :10 PM TANK CAR INSPECTOR POCT GLUCOSE DEVICE Routine 04/30/2024 1 2:23 PM TANK CAR INSPECTOR POCT GLUCOSE DEVICE Routine 04/30/2024 8 :58 AM TANK CAR INSPECTOR PROCALCITONIN Routine 04/30/2024 8:21 AM TANK CAR INSPECTOR EGFR Routine 04/30/2024 3:34 AM TANK CAR INSPECTOR COMPREHENSIVE METABOLIC PANEL Routine 04/30/2024 3:34 AM TANK CAR INSPECTOR PHOSPHORUS Routine 04/30/2024 3:34 AM TANK CAR INSPECTOR MAGNESIUM Routine 04/30/2024 3:34 AM TANK CAR INSPECTOR POCT GLUCOSE DEVICE Routine 04/30/2024 2 :18 AM TANK CAR INSPECTOR POCT GLUCOSE DEVICE Routine 04/30/2024 1 2:17 AM TANK CAR INSPECTOR POCT GLUCOSE DEVICE Routine 04/29/2024 1 0:16 PM TANK CAR INSPECTOR POCT GLUCOSE DEVICE Routine 04/29/2024 8 :47 PM TANK CAR INSPECTOR TROPONIN T HIGH-SENSITIVITY 6-HOUR Timed 04/29/2024 7:12 PM TANK CAR INSPECTOR TROPONIN T HIGH-SENSITIVITY 4-HR Timed 04/29/2024 5:32 PM TANK CAR INSPECTOR POCT GLUCOSE DEVICE Routine 04/29/2024 4 :43 PM TANK CAR INSPECTOR TROPONIN T HIGH-SENSITIVITY 2-HOUR Timed 04/29/2024 4:01 PM TANK CAR INSPECTOR POCT GLUCOSE DEVICE Routine 04/29/2024 3 :39 PM TANK CAR INSPECTOR TROPONIN T HIGH-SENSITIVITY SERIES (BASELINE, 2HR, 4HR, 6HR) STAT 04/29/2024 1:27 PM TANK CAR INSPECTOR STREPTOCOCCUS GROUP A PCR STAT 04/29/2024 1:27 PM TANK CAR INSPECTOR URINALYSIS, MICROSCOPIC ONLY STAT 04/29/2024 12:44 PM TANK CAR INSPECTOR URINALYSIS AND REFLEX TO MICROSCOPIC AND CULTURE STAT 04/29/2024 12:44 PM TANK CAR INSPECTOR XR CHEST PA LATERAL 2 VIEWS ED 04/29/2024 11:42 AM TANK CAR INSPECTOR PRO B-TYPE NATRIURETIC PEPTIDE STAT 04/29/2024 11:35 AM TANK CAR INSPECTOR TROPONIN T HIGH-SENSITIVITY Routine 04/29/2024 11:35 AM TANK CAR INSPECTOR RESPIRATORY PATHOGEN PANEL STAT 04/29/2024 11:35 AM TANK CAR INSPECTOR EGFR STAT 04/29/2024 11:30 AM TANK CAR INSPECTOR DIFFERENTIAL AUTO STAT 04/29/2024 11: 30 AM TANK CAR INSPECTOR COMPREHENSIVE METABOLIC PANEL STAT 04/29/2024 11:30 AM TANK CAR INSPECTOR CBC WITH AUTO DIFFERENTIAL STAT 04/29/2024 11:30 AM TANK CAR INSPECTOR ECG 12-LEAD STAT 04/29/2024 11:29 AM TANK CAR INSPECTOR COLONOSCOPY REPORT Routine 04/04/2024 10 :21 AM CDT DEXA AXIAL SKELETON BONE DENSITY 1 OR MORE SITES Schedule Routine, Read Routine (OP Routine) 03/23/2024 1:50 PM CDT Postmenopausal LIPID PANEL Routine 02/14/2024 11:16 AM CDT Type 2 diabetes mellitus with diabetic neuropathy, with long-term current use of insulin (HCC) Hyperlipidemia associated with type 2 diabetes mellitus (HCC) Type 2 diabetes mellitus with hyperglycemia, with long-term current use of insulin (HCC) Encounter for Medicare annual wellness exam ALBUMIN CREATININE RATIO, URINE Routine 02/14/2024 11:16 AM CDT Type 2 diabetes mellitus with diabetic neuropathy, with long-term current use of insulin (HCC) Hyperlipidemia associated with type 2 diabetes mellitus (HCC) Type 2 diabetes mellitus with hyperglycemia, with long-term current use of insulin (HCC) Encounter for Medicare annual wellness exam DIABETES EYE EXAM Routine 10/19/2023 SCREENING MAMMOGRAM BILATERAL W PHILIPP Schedule Routine, Read Routine (OP Routine) 04/16/2023 12:56 PM TANK CAR INSPECTOR Encounter for screening mammogram for malignant neoplasm of breast from Last 3 Months or Most Recently Relevant to Health Maintenance Results * (ABNORMAL) POCT hemoglobin A1c (06/08/2024 11:35 AM TANK CAR INSPECTOR) Hemoglobin A1C, POC 7.7 4.0 - 5.6 % Comment:None Capillary blood 06/08/2024 1 1:35 AM TANK CAR INSPECTOR us Raj Stoddard MD POINT OF CARE TEST ORDERABLES Fi nal Result * (ABNORMAL) POCT glucose (06/08/2024 11:35 AM TANK CAR INSPECTOR) Glucose Blood, POC 214 mg/dL Comment:None Blood 06/08/2024 11:3 5 AM TANK CAR INSPECTOR us Raj Stoddard MD POINT OF CARE TEST ORDERABLES Fi nal Result * POCT glucose (05/01/2024 7:41 AM TANK CAR INSPECTOR) Glucose, POC 179 70 - 199 mg/dL Blood 05/01/2024 7:41 AM TANK CAR INSPECTOR 05/01/2024 7:41 AM TANK CAR INSPECTOR us Amanda Walker MD LAB POCT ORDERABLES - DEVICE Final Result Performing Organization Address City/State/[facility] Co de Phone Number [facility] ([place]) 1 [facility] Department [place] [address] * eGFR (05/01/2024 4:27 AM TANK CAR INSPECTOR) eGFR 78 >=60 mL/min/1. 73 m2 Comment: Interpretive Data Reference Interval Normal ?>/= 90 mL/min/1.73m2 Mildly decreased* ? 60 - 89 mL/min/1.73m2 Mildly to moderately decreased ?45 - 59 mL/min/1.73m2 Moderately to severely decreased ??30 - 44 mL/min/1.73m2 Severely decreased ?15 - 29 mL/min/1.73m2 Kidney Failure ?< 15 ??mL/min/1.73m2 *Relative to young adult level Estimated glomerular filtration rate is determined by the 2020 CKD-EPI equation recommended by the National Kidney Foundation (A Unifying Approach to GFR Estimation: Recommendations of the NKF-ASK Task Force on Reassessing the Inclusion of Race in Diagnosing Kidney Disease, JASN 2020). The CKD-EPI equation should not be used for patients with unstable renal function and has not been validated in children and those over 70. Current interpretive data was last reviewed 2021. Blood 05/01/2024 4:27 AM TANK CAR INSPECTOR 05/01/2024 5:47 AM TANK CAR INSPECTOR us Bro Jameson MD LAB BLOOD ORDERABLES Final Resu lt [facility] ([place]) 1 [facility] [place] [address] * Differential, auto (05/01/2024 4:27 AM TANK CAR INSPECTOR) Neutrophil abs 4.3 1.5 - 6.5 K/cumm Imm gran abs 0.0 0.0 - 0.1 K/cumm [facility] ([place]) Lymphocyte abs 1.6 0.8 - 3.3 K/cumm [facility] ([place]) Monocyte abs 0.4 0.2 - 0.8 K/cumm [facility] ([place]) Eosinophil abs 0.1 0.0 - 0.5 K/cumm [facility] ([place]) Basophil abs 0.0 0.0 - 0.1 K/cumm [facility] ([place]) Neutrophil pct 66.5 % [facility] ([place]) Comment: Interpretive Data Percent cell count reference ranges are not reported, since discordance with absolute values may lead to misinterpretation of CBC data. Current Interpretive Data was last revised on 2017. Imm gran pct 0.3 % [facility] ([place]) Comment: Interpretive Data Percent cell count reference ranges are not reported, since discordance with absolute values may lead to misinterpretation of CBC data. Current Interpretive Data was last revised on 2017. Lymphocyte pct 24.6 % [facility] ([place]) Comment: Interpretive Data Percent cell count reference ranges are not reported, since discordance with absolute values may lead to misinterpretation of CBC data. Current Interpretive Data was last revised on 2017. Monocyte pct 6.1 % [facility] ([place]) Comment: Interpretive Data Percent cell count reference ranges are not reported, since discordance with absolute values may lead to misinterpretation of CBC data. Current Interpretive Data was last revised on 2017. Eosinophil pct 2.0 % [facility] ([place]) Comment: Interpretive Data Percent cell count reference ranges are not reported, since discordance with absolute values may lead to misinterpretation of CBC data. Current Interpretive Data was last revised on 2017. Basophil pct 0.5 % [facility] ([place]) Comment: Interpretive Data Percent cell count reference ranges are not reported, since discordance with absolute values may lead to misinterpretation of CBC data. Current Interpretive Data was last revised on 2017. Blood 05/01/2024 4:27 AM TANK CAR INSPECTOR 05/01/2024 5:47 AM TANK CAR INSPECTOR Bro Jameson MD LAB BLOOD ORDERABLES Final Resu lt Performing Organization Address City/[facility]/ZIP Co de Phone Number [facility] ([place]) 1 [facility] Department [place] [address] * CBC with auto differential (05/01/2024 4:27 AM TANK CAR INSPECTOR) WBC 6.4 3.8 - 9.9 K/cumm Hgb 13.4 11.9 - 15.5 g/dL [facility] ([place]) Hct 40.4 35.6 - 45.5 % [facility] ([place]) Plt 152 150 - 400 K/cumm [facility] ([place]) MPV 10.3 9.1 - 12.3 fL [facility] ([place]) RBC 4.38 3.90 - 5.20 M/cumm [facility] ([place]) MCV 92.2 81.3 - 96.4 fL [facility] ([place]) MCH 30.6 27.1 - 33.3 pg [facility] ([place]) MCHC 33.2 32.3 - 35.7 g/dL [facility] ([place]) RDW CV 13.2 11.1 - 14.9 % [facility] ([place]) RDW SD 45.4 35.7 - 48.1 fL [facility] ([place]) NRBC abs 0.00 0.00 - 0.01 K/cumm [facility] ([place]) Blood 05/01/2024 4:27 AM TANK CAR INSPECTOR 05/01/2024 5:47 AM TANK CAR INSPECTOR us Bro Jameson MD LAB BLOOD ORDERABLES Final Resu lt [facility] ([place]) 1 [facility] [place] [address] * Phosphorus (05/01/2024 4:27 AM TANK CAR INSPECTOR) Pathologist [facility] Phosphorus, pl 4.2 2.3 - 4.5 mg/dL Blood 05/01/2024 4:27 AM TANK CAR INSPECTOR 05/01/2024 5:47 AM TANK CAR INSPECTOR Bro Jameson MD LAB BLOOD ORDERABLES Final Resu lt [facility] ([place]) 1 [facility] [place] [address] * Magnesium (05/01/2024 4:27 AM TANK CAR INSPECTOR) [facility] Magnesium 1.8 1.4 - 2.5 mg/dL Blood 05/01/2024 4:27 AM TANK CAR INSPECTOR 05/01/2024 5:47 AM TANK CAR INSPECTOR Bro Jameson MD LAB BLOOD ORDERABLES Final Resu lt [facility] ([place]) 1 [facility] [place] [address] * (ABNORMAL) Comprehensive metabolic panel (05/01/2024 4:27 AM TANK CAR INSPECTOR) [facility] Sodium 137 135 - 145 mmol/L Potassium, pl 3.5 3.3 - 4.9 mmol/L [facility] ([place]) Chloride 101 97 - 110 mmol/L [facility] ([place]) CO2 25 22 - 32 mmol/L [facility] ([place]) Anion gap 11 2 - 15 mmol/L [facility] ([place]) BUN 15 6 - 25 mg/dL [facility] ([place]) Creatinine 0.80 0.60 - 1.10 mg/dL [facility] ([place]) Glucose 131 70 - 199 mg/dL [facility] ([place]) Comment: Interpretive Data Fasting glucose >/= 126 mg/dl is diagnostic for diabetes. ?? Fasting is defined as no caloric intake for at least 8 hours. Fasting glucose between 100 mg/dl to 125 mg/dl is diagnostic of prediabetes. In a patient with classic symptoms of hyperglycemia or hyperglycemic crisis, a random glucose >/= 200 mg/dl is diagnostic for diabetes. In the absence of unequivocal hyperglycemia, results should be confirmed by repeat testing. The classification and Diagnosis of Diabetes Diabetes Care 2021; 46: S19-S40. Current interpretive data was last revised 2022. Calcium 9.0 8.5 - 10.3 mg/dL [facility] ([place]) Bilirubin, total 0.6 0.1 - 1.2 mg/dL [facility] ([place]) Protein, pl 6.1(L) 6.5 - 8.5 g/dL [facility] ([place]) Albumin 3.5 3.5 - 5.0 g/dL [facility] ([place]) Alk phos 88 40 - 130 Units/L [facility] ([place]) ALT 18 7 - 45 Units/L [facility] ([place]) AST 19 10 - 45 Units/L [facility] ([place]) Blood 05/01/2024 4:27 AM TANK CAR INSPECTOR 05/01/2024 5:47 AM TANK CAR INSPECTOR us Bro Jameson MD LAB BLOOD ORDERABLES Final Resu lt Performing Organization Address City/[facility]/ZIP Co de Phone Number [facility] ([place]) 1 [facility] [place] [address] * POCT glucose (05/01/2024 1:55 AM TANK CAR INSPECTOR) [facility] Signature Glucose, POC 131 70 - 199 mg/dL Blood 05/01/2024 1:55 AM TANK CAR INSPECTOR 05/01/2024 1:55 AM TANK CAR INSPECTOR us Amanda Walker MD LAB POCT ORDERABLES - DEVICE Final Result Performing Organization Address City/[facility]/ZIP Co de Phone Number [facility] ([place]) 1 [facility] [place] [address] * (ABNORMAL) POCT glucose (04/30/2024 8:40 PM TANK CAR INSPECTOR) Glucose, POC 245(H) 70 - 199 mg/dL Blood 04/30/2024 8:40 PM TANK CAR INSPECTOR 04/30/2024 8:40 PM TANK CAR INSPECTOR Amanda Walker MD LAB POCT ORDERABLES - DEVICE Final Result Performing Organization Address City/[facility]/ZIP Co de Phone Number [facility] ([place]) 1 [facility] [place] [address] * POCT glucose (04/30/2024 4:10 PM TANK CAR INSPECTOR) Glucose, POC 119 70 - 199 mg/dL Blood 04/30/2024 4:10 PM TANK CAR INSPECTOR 04/30/2024 4:10 PM TANK CAR INSPECTOR Amanda Walker MD LAB POCT ORDERABLES - DEVICE Final Result Performing Organization Address City/[facility]/ZIP Co de Phone Number [facility] ([place]) 1 [facility] [place] [address] * (ABNORMAL) POCT glucose (04/30/2024 12:23 PM TANK CAR INSPECTOR) Glucose, POC 249(H) 70 - 199 mg/dL Blood 04/30/2024 12:2 3 PM TANK CAR INSPECTOR 04/30/2024 12:23 PM TANK CAR INSPECTOR Amanda Walker MD LAB POCT ORDERABLES - DEVICE Final Result Performing Organization Address City/[facility]/ZIP Co de Phone Number [facility] ([place]) 1 [facility] [place] [address] * (ABNORMAL) POCT glucose (04/30/2024 8:58 AM TANK CAR INSPECTOR) Glucose, POC 207(H) 70 - 199 mg/dL Blood 04/30/2024 8:58 AM TANK CAR INSPECTOR 04/30/2024 8:58 AM TANK CAR INSPECTOR us Amanda Walker MD LAB POCT ORDERABLES - DEVICE Final Result Performing Organization Address City/[facility]/ZIP Co de Phone Number [facility] [place]) 1 [facility] [employer] [address] * Procalcitonin (04/30/2024 8:21 AM TANK CAR INSPECTOR) Procalcitonin 0.08 <=0.25 ng/mL Comment:Testing performed by : [facility], [facility], [place] [address] Blood 04/30/2024 8:21 AM TANK CAR INSPECTOR 04/30/2024 2:38 PM TANK CAR INSPECTOR us Bro Jameson MD LAB BLOOD ORDERABLES Final Resu lt Performing Organization Address City/[facility] Co de Phone Number [facility]ILXE [facility] ([place]) 1 [facility] [place] [address] * eGFR (04/30/2024 3:34 AM TANK CAR INSPECTOR) eGFR 83 >=60 mL/min/1. 73 m2 Comment: Interpretive Data Reference Interval Normal ?>/= 90 mL/min/1.73m2 Mildly decreased* ? 60 - 89 mL/min/1.73m2 Mildly to moderately decreased ?45 - 59 mL/min/1.73m2 Moderately to severely decreased ??30 - 44 mL/min/1.73m2 Severely decreased ?15 - 29 mL/min/1.73m2 Kidney Failure ?< 15 ??mL/min/1.73m2 *Relative to young adult level Estimated glomerular filtration rate is determined by the 2020 CKD-EPI equation recommended by the National Kidney Foundation (A Unifying Approach to GFR Estimation: Recommendations of the NKF-ASK Task Force on Reassessing the Inclusion of Race in Diagnosing Kidney Disease, JASN 2020). The CKD-EPI equation should not be used for patients with unstable renal function and has not been validated in children and those over 70. Current interpretive data was last reviewed 2021. Blood 04/30/2024 3:34 AM TANK CAR INSPECTOR 04/30/2024 4:32 AM TANK CAR INSPECTOR Bro Jameson MD LAB BLOOD ORDERABLES Final Resu lt [facility] ([place]) 1 [facility] [place] [address] * Phosphorus (04/30/2024 3:34 AM TANK CAR INSPECTOR) Phosphorus, pl 3.2 2.3 - 4.5 mg/dL Blood 04/30/2024 3:34 AM TANK CAR INSPECTOR 04/30/2024 4:32 AM TANK CAR INSPECTOR Bro Jameson MD LAB BLOOD ORDERABLES Final Resu lt Performing Organization Address City/[facility] Co de Phone Number [facility] ([place]) 1 [facility] [place] [place] [address] * Magnesium (04/30/2024 3:34 AM TANK CAR INSPECTOR) Magnesium 1.6 1.4 - 2.5 mg/dL Blood 04/30/2024 3:34 AM TANK CAR INSPECTOR 04/30/2024 4:32 AM TANK CAR INSPECTOR Bro Jameson MD LAB BLOOD ORDERABLES Final Resu lt Performing Organization Address City/[facility] Co de Phone Number [facility] ([place]) 1 [facility] [place] [place] [address] * (ABNORMAL) Comprehensive metabolic panel (04/30/2024 3:34 AM TANK CAR INSPECTOR) Sodium 135 135 - 145 mmol/L Potassium, pl 3.5 3.3 - 4.9 mmol/L [facility] ([place]) Chloride 99 97 - 110 mmol/L [facility] ([place]) CO2 21(L) 22 - 32 mmol/L [facility] ([place]) Anion gap 14 2 - 15 mmol/L [facility] ([place]) BUN 11 6 - 25 mg/dL [facility] ([place]) Creatinine 0.76 0.60 - 1.10 mg/dL [facility] ([place]) Glucose 258(H) 70 - 199 mg/dL [facility] ([place]) Comment: Interpretive Data Fasting glucose >/= 126 mg/dl is diagnostic for diabetes. ?? Fasting is defined as no caloric intake for at least 8 hours. Fasting glucose between 100 mg/dl to 125 mg/dl is diagnostic of prediabetes. In a patient with classic symptoms of hyperglycemia or hyperglycemic crisis, a random glucose >/= 200 mg/dl is diagnostic for diabetes. In the absence of unequivocal hyperglycemia, results should be confirmed by repeat testing. The classification and Diagnosis of Diabetes Diabetes Care 2021; 46: S19-S40. Current interpretive data was last revised 2022. Calcium 9.1 8.5 - 10.3 mg/dL [facility] ([place]) Bilirubin, total 0.8 0.1 - 1.2 mg/dL [facility] ([place]) Protein, pl 6.4(L) 6.5 - 8.5 g/dL [facility] ([place]) Albumin 3.5 3.5 - 5.0 g/dL [facility] ([place]) Alk phos 90 40 - 130 Units/L [facility] ([place]) ALT 20 7 - 45 Units/L [facility] ([place]) AST 22 10 - 45 Units/L [facility] ([place]) Blood 04/30/2024 3:34 AM TANK CAR INSPECTOR 04/30/2024 4:32 AM TANK CAR INSPECTOR us Bro Jameson MD LAB BLOOD ORDERABLES Final Resu lt [facility] ([place]) 1 [facility] [place] [address] * (ABNORMAL) POCT glucose (04/30/2024 2:18 AM TANK CAR INSPECTOR) Glucose, POC 217(H) 70 - 199 mg/dL Blood 04/30/2024 2:18 AM TANK CAR INSPECTOR 04/30/2024 2:18 AM TANK CAR INSPECTOR Marva Gandara MD LAB POCT ORDERABLES - DEVICE Fi nal Result Performing Organization Address City/[facility] [facility]/ZIP Co de Phone Number [facility] ([place]) 1 [facility] [place] [address] * (ABNORMAL) POCT glucose (04/30/2024 12:17 AM TANK CAR INSPECTOR) Glucose, POC 235(H) 70 - 199 mg/dL Blood 04/30/2024 12:1 7 AM TANK CAR INSPECTOR 04/30/2024 12:17 AM TANK CAR INSPECTOR Marva Gandara MD LAB POCT ORDERABLES - DEVICE Fi nal Result Performing Organization Address [facility] Co de Phone Number [facility] ([place]) 1 [facility] [place] [address] * (ABNORMAL) POCT glucose (04/29/2024 10:16 PM TANK CAR INSPECTOR) Glucose, POC 201(H) 70 - 199 mg/dL Blood 04/29/2024 10:1 6 PM TANK CAR INSPECTOR 04/29/2024 10:16 PM TANK CAR INSPECTOR Marva Gandara MD LAB POCT ORDERABLES - DEVICE Fi nal Result Performing Organization Address City/[facility] Co de Phone Number [facility] ([place]) 1 [facility] [place] [address] * (ABNORMAL) POCT glucose (04/29/2024 8:47 PM TANK CAR INSPECTOR) Glucose, POC 244(H) 70 - 199 mg/dL Blood 04/29/2024 8:47 PM TANK CAR INSPECTOR 04/29/2024 8:47 PM TANK CAR INSPECTOR Marva Gandara MD LAB POCT ORDERABLES - DEVICE Fi nal Result Performing Organization Address [facility] Co de Phone Number [facility]X [facility] ([place]) 1 [facility] [place] [address] * (ABNORMAL) Troponin T high-sensitivity 6-hour (04/29/2024 7:12 PM TANK CAR INSPECTOR) Trop T hs 15(H) <=14 ng/L Comment: Interpretive Data For further hscTnT resources including the diagnostic algorithm and an aid in interpretation, copy and paste this link: https://nrl.testcatDealdrive.org/show/hsTrop Current Interpretive Data last revised 2020. Trop T hs delta 1 ng/L [facility] ([place]) Trop T hs interp Insignificant [facility] ([place]) Blood 04/29/2024 7:12 PM TANK CAR INSPECTOR 04/29/2024 7:20 PM TANK CAR INSPECTOR Ruel Fernández MD LAB BLOOD ORDERABLES Final Resul t Performing Organization Address [facility] Co de Phone Number [facility] ([place]) 1 [facility] [place] [address] * Troponin T high-sensitivity 4-hour (04/29/2024 5:32 PM TANK CAR INSPECTOR) Trop T hs 14 <=14 ng/L Comment: Interpretive Data For further hscTnT resources including the diagnostic algorithm and an aid in interpretation, copy and paste this link: https://nrl.testcatDealdrive.org/show/hsTrop Current Interpretive Data last revised 2020. Trop T hs delta 0 ng/L [facility] ([place]) Trop T hs interp Insignificant [facility] ([place]) Blood 04/29/2024 5:32 PM TANK CAR INSPECTOR 04/29/2024 5:42 PM TANK CAR INSPECTOR Ruel Fernández MD LAB BLOOD ORDERABLES Final Resul t [facility] ([place]) 1 [facility] [place] [address] * POCT glucose (04/29/2024 4:43 PM TANK CAR INSPECTOR) Glucose, POC 155 70 - 199 mg/dL Blood 04/29/2024 4:43 PM TANK CAR INSPECTOR 04/29/2024 4:43 PM TANK CAR INSPECTOR Marva Gandara MD LAB POCT ORDERABLES - DEVICE Fi nal Result Performing Organization Address [facility]/ZIP Co de Phone Number [facility] ([place]) 1 [facility] [place] [address] * (ABNORMAL) Troponin T high-sensitivity 2-hour (04/29/2024 4:01 PM TANK CAR INSPECTOR) Trop T hs 15(H) <=14 ng/L Comment: Interpretive Data For further hscTnT resources including the diagnostic algorithm and an aid in interpretation, copy and paste this link: https://nrl.testcatalog.org/show/hsTrop Current Interpretive Data last revised 2020. Trop T hs delta 1 ng/L [facility] ([place]) Trop T hs interp Insignificant [facility] ([place]) Blood 04/29/2024 4:01 PM TANK CAR INSPECTOR 04/29/2024 4:08 PM TANK CAR INSPECTOR Ruel Fernández MD LAB BLOOD ORDERABLES Final Resul t [facility] ([place]) 1 [facility] [place] [address] * POCT glucose (04/29/2024 3:39 PM TANK CAR INSPECTOR) Glucose, POC 182 70 - 199 mg/dL Blood 04/29/2024 3:39 PM TANK CAR INSPECTOR 04/29/2024 3:39 PM TANK CAR INSPECTOR Result [facility] Marva Gandara MD LAB POCT ORDERABLES - DEVICE Fi nal Result Performing Organization Address [facility] Co de Phone Number [facility]X [facility] [place]) 1 [place] [address] * Troponin T high-sensitivity series (baseline, 2hr, 4hr, 6hr) (04/29/2024 1:27 PM TANK CAR INSPECTOR) Pathologist [facility] Trop T hs 14 <=14 ng/L Comment: Interpretive Data For further hscTnT resources including the diagnostic algorithm and an aid in interpretation, copy and paste this link: https://nrl.testcatalog.org/show/hsTrop Current Interpretive Data last revised 2020. Blood 04/29/2024 1:27 PM TANK CAR INSPECTOR 04/29/2024 1:29 PM TANK CAR INSPECTOR Result [facility] Ruel Fernández MD LAB BLOOD ORDERABLES Final Resul t Performing Organization Address [facility] de Phone Number [facility] [place]) 1 [facility] [place] [address] * Streptococcus Group A PCR Throat (04/29/2024 1:27 PM TANK CAR INSPECTOR) [facility] Strep A DNA Not Detected Not Detected Comment: This test is performed using the [employer] Geo Xpert Group A Streptococcal Assay. This is a qualitative, real-time PCR assay that detects Group A Strep using throat specimens from patients suspected of having streptococcal pharyngitis. This assay does not detect other beta-hemolytic streptococci including Group C or Group G. ??Group C and G have been associated with pharyngitis and, occasionally, acute nephritis but do not cause rheumatic fever. If suspected, order Throat Culture, Routine. This assay has been cleared by the US Food and Drug Administration, and its performance characteristics have been verified by the performing laboratory. Throat 04/29/2024 1:27 PM TANK CAR INSPECTOR 04/29/2024 1:29 PM TANK CAR INSPECTOR Result [facility] Ruel Fernández MD LAB MICROBIOLOGY - GENERAL ORDER LEV Final Result Performing Organization Address City/[facility]/ZIP Co de Phone Number [facility] ([place]) 1 [facility] [place] [address] * (ABNORMAL) Urinalysis reflex to microscopic and culture Urine (04/29/2024 12:44 PM TANK CAR INSPECTOR) [facility] Signature Color, ur Yellow Yellow Clarity, ur Clear Clear [facility] ([place]) Specific gravity, ur 1.009 1.003 - 1.030 [facility] ([place]) pH, urine 6.0 [facility] ([place]) Comment: Interpretive Data ? Urine pH is affected by diet, medications, systemic acid-base disturbances, and renal tubular function. ??pH may affect urinary stone formation. ??For example, urine pH below 6.0 may help reduce the tendency for calcium phosphate stones and pH greater than 6.0 may reduce the tendency for uric acid stone formation. Source: [facility] [place] Current Interpretive Data was last revised on 2017 Protein, ur ql 1+(A) Negative [facility] ([place]) Glucose, ur ql Trace(A) Negative [facility] ([place]) Ketones, ur Negative Negative [facility] ([place]) Bilirubin, ur Negative Negative [facility] ([place]) Blood, ur Trace(A) Negative [facility] ([place]) Urobilinogen, ur <2.0 <2.0 mg/dL [facility] ([place]) Nitrite, ur Negative Negative [facility] ([place]) Leukocyte esterase, ur Negative Negative [facility] ([place]) UA reflex comment Reflex to microscopic UA will be performed. [facility] ([place]) Urine 04/29/2024 12:4 4 PM TANK CAR INSPECTOR 04/29/2024 12:46 PM TANK CAR INSPECTOR Ruel Fernández MD LAB MICROBIOLOGY - GENERAL ORDER LEV Final Result [facility] ([place]) 1 [facility] [place] [address] * (ABNORMAL) Urinalysis, microscopic only (04/29/2024 12:44 PM TANK CAR INSPECTOR) WBC, ur 0-5 0 - 5 /HPF RBC, ur 0-2 0 - 2 /HPF [facility] ([place]) Epithelial cells, squamous, ur 1-5 0 - 5 /HPF [facility] ([place]) Mucous, ur Present(A) [facility]X [facility] ([place]) Culture Reflex Comment Reflex conditions for urine culture (WBC >10) not met. [facility] ([place]) Urine 04/29/2024 12:4 4 PM TANK CAR INSPECTOR 04/29/2024 12:46 PM TANK CAR INSPECTOR Ruel Fernández MD LAB URINE ORDERABLES Final Resul t [facility] ([place]) 1 [facility] [place] [address] * XR Chest Pa Lateral 2 Views (04/29/2024 11:42 AM TANK CAR INSPECTOR) Anatomical Region Laterality Modality Body, Chest N/A Computed Radiogr aphy 04/29/2024 12:1 7 PM TANK CAR INSPECTOR Narrative 04/29/2024 12:18 PM TANK CAR INSPECTOR EXAM DESCRIPTION: XR CHEST PA LATERAL 2 VIEWS REASON FOR STUDY: general weakness, URI symptoms, assess for PNA, other infectious signs ?? Patient presents to the ED per EMS [facility] from home where patient called EMS for weakness since Wednesday when she came home from [place], [facility] . Patient states she feels dehydrated ? TECHNIQUE: Frontal and lateral ??radiographic view(s) of the chest. COMPARISON: Chest radiograph dated 07/11/2022. FINDINGS: LUNGS: ??No focal opacity, pleural effusion, or pneumothorax. ?? HEART/MEDIASTINUM: ??Cardiac silhouette normal in size. Mediastinal and hilar contours appear normal. LINES/TUBES: ??None. BONES: ??No acute osseous abnormality. IMPRESSION: No acute cardiopulmonary abnormality. THIS IS AN ELECTRONICALLY VERIFIED FINAL REPORT 04/29/2024 12:18 PM - Electronically signed by ??Oniel Horvath M.D. MF: BLESSING D: ??04/29/2024 12:18 PM T: ??04/29/2024 12:18 PM Report ID: [id number] Reading Location: ??[id number] Procedure Note Oniel Horvathory, DO - 04/29/2024 EXAM DESCRIPTION: XR CHEST PA LATERAL 2 VIEWS REASON FOR STUDY: general weakness, URI symptoms, assess for PNA, other infectious signs Patient presents to the ED per EMS [facility] from home where patient called EMSfor weakness since Wednesday when she came home from [place], patient [facility]andrew [facility] . Patient states shefeels dehydrated TECHNIQUE: Frontal and lateral radiographic view(s) of the chest. COMPARISON: Chest radiograph dated 07/11/2022. FINDINGS: LUNGS: No focal opacity, pleural effusion, or pneumothorax. HEART/MEDIASTINUM: Cardiac silhouette normal in size. Mediastinal andhilar contours appear normal. LINES/TUBES: None. BONES: No acute osseous abnormality. IMPRESSION: No acute cardiopulmonary abnormality. THIS IS AN ELECTRONICALLY VERIFIED FINAL REPORT 04/29/2024 12:18 PM - Electronically signed by Oniel Horvath M.D. MF: BLESSING Report ID: [id number] Reading Location: [id number] Ruel Fernández MD IMG XR PROCEDURES Final Result * (ABNORMAL) Troponin T high-sensitivity (04/29/2024 11:35 AM TANK CAR INSPECTOR) Trop T hs 15(H) <=14 ng/L Comment: Interpretive Data For further hscTnT resources including the diagnostic algorithm and an aid in interpretation, copy and paste this link: https://nrl.testcatalog.org/show/hsTrop Current Interpretive Data last revised 2020. Blood 04/29/2024 11:3 5 AM TANK CAR INSPECTOR 04/29/2024 11:38 AM TANK CAR INSPECTOR Ruel Fernández MD LAB BLOOD ORDERABLES Final Resul t [facility] ([place]) 1 [facility] [place] [address] * (ABNORMAL) Pro B-type natriuretic peptide (04/29/2024 11:35 AM TANK CAR INSPECTOR) NT-proBNP 365(H) <=300 pg/mL Comment: Interpretive Comments: A. Dyspnea in Acute Care Setting All Ages: ?< 300 pg/ml, acute heart failure unlikely. < 50 yrs: ?300 - 450 pg/ml, further investigation warranted. ? > 450 pg/ml, acute heart failure likely. 50 - 74 yrs: ? 300 - 900 pg/ml, further investigation warranted. ? > 900 pg/ml, acute heart failure likely . > or = 75 yrs: ? 450 - 1800 pg/ml, further investigation warranted. ? > 1800 pg/ml, acute heart failure likely. B. Non-acute Setting < 75 yrs ? < 125 pg/ml, rules out heart failure. ? > or = 125 pg/ml, further investigation warranted. > or = 75 yrs ?< 450 pg/ml, rules out heart failure. ? > or = 450 pg/ml, further investigation warranted. - Knowledge of each individual patient's NT-proBNP range may be more useful than using similar cut-points for every patient. Please note that marked elevations in NT-proBNP levels may be observed in state other than Left Ventricular Congestive Failure, including: acute coronary syndromes, right heart strain/failure (including pulmonary embolism and cor pulmonale), critical illness, renal failure, as well as advanced age. - References: 1. Leslie MICHEL et.al. Eur Heart J. 2006:27:330-337. 2. Iliana LEAVITT, Herbert MCHUGH. J. AM Aylin Cardiol: Cardiovasc Imag. 2009;2: 216- 225. Interpretive Data Last Revised Date: 2018. Blood 04/29/2024 11:3 5 AM TANK CAR INSPECTOR 04/29/2024 11:39 AM TANK CAR INSPECTOR Ruel Fernández MD LAB BLOOD ORDERABLES Final Resul t [facility] ([place]) 1 [facility] [place] [address] * (ABNORMAL) Respiratory pathogen panel Nasopharyngeal (04/29/2024 11:35 AM TANK CAR INSPECTOR) Influenza A RNA Not Detected Not Detected Comment:Testing performed by : [address] [address] Influenza B RNA Not Detected Not Detected [facility] ([place]) Comment:Testing performed by : [address] [address] RSV RNA Not Detected Not Detected [facility] ([place]) Comment:Testing performed by : [address], [address] COVID-19 RNA Detected(A) Not Detected [facility] ([place]) Comment:Testing performed by : [address] [address] Coronavirus 229E RNA Not Detected Not Detected [facility] ([place]) Comment:Testing performed by : [address] [address] Coronavirus HKU1 RNA Not Detected Not Detected [facility] ([place]) Comment:Testing performed by : [address] [address] Coronavirus NL63 RNA Not Detected Not Detected [facility] ([place]) Comment:Testing performed by : [address], [address] Coronavirus OC43 RNA Not Detected Not Detected [facility] ([place]) Comment:Testing performed by : [address], [address] Adenovirus DNA Not Detected Not Detected [facility] ([place]) Comment:Testing performed by : [facility], [address] [place] [address], [address] Metapneumovirus RNA Not Detected Not Detected [facility] ([place]) Comment:Testing performed by : [facility], [address] [place] [address]., [id number] Rhinovirus/Enterov irus RNA Not Detected Not Detected [facility] ([place]) Comment:Testing performed by : [facility], [address] [place] [address], [id number] Parainfluenza 1 RNA Not Detected Not Detected [facility] ([place]) Comment:Testing performed by : [facility], [address] [place] [address], [id number] Parainfluenza 2 RNA Not Detected Not Detected [facility] ([place]) Comment:Testing performed by : [facility], [address] [place] [address], [id number] Parainfluenza 3 RNA Not Detected Not Detected [facility] ([place]) Comment:Testing performed by : [facility], [address] [place] [address], [address] Parainfluenza 4 RNA Not Detected Not Detected [facility] ([place]) Comment:Testing performed by : [facility], [address] [place] [address], [id number] B. pertussis DNA Not Detected Not Detected [facility] ([place]) Comment:Testing performed by : [address], [address] B. parapertussis DNA Not Detected Not Detected [facility] ([place]) Comment:Testing performed by : [address], [address] C. pneumoniae DNA Not Detected Not Detected [facility] ([place]) Comment:Testing performed by : [address], [address] M. pneumoniae DNA Not Detected Not Detected [facility] ([place]) Comment: Interpretive Data The [employer] FilmArray Respiratory Panel (RP2.1) assay is a multiplexed real-time PCR based nucleic acid test capable of simultaneous qualitative detection and identification of multiple respiratory viral and bacterial nucleic acids, including SARS Coronavirus 2 (the causative agent of COVID-19). The following bacteria, viruses and virus subtypes can be identified using the FilmArray RP2.1 assay: Bordetella pertussis, Bordetella parapertussis, Chlamydia pneumoniae, Mycoplasma pneumoniae, Adenovirus, SARS Coronavirus 2, seasonal coronaviruses (Coronavirus HKU1, Coronavirus NL63, Coronavirus 229E, and Coronavirus OC43), Influenza A, Influenza A subtype H1, Influenza A subtype H3, Influenza A subtype 2009 H1, Influenza B, Metapneumovirus, Parainfluenza 1, Parainfluenza 2, Parainfluenza 3, Parainfluenza 4, RSV, Rhinovirus/Enterovirus. Due to the genetic similarity between human Rhinovirus and Enterovirus, the FilmArray RP2.1 assay cannot reliably differentiate them. Coronavirus OC43 may cross-react with some isolates of Coronavirus HKU1. ??A dual positive result may be due to cross-reactivity or may indicate a co-infection. The detection and identification of specific viral and bacterial nucleic acids from individuals exhibiting signs and symptoms of a respiratory infection aids in the diagnosis of respiratory infection if used in conjunction with other clinical and epidemiological information. ??The results of this test should not be used as the sole basis for diagnosis, treatment, or other management decisions. ??Negative results in the setting of a respiratory illness may be due to infection with pathogens that are not detected by this test. ??Positive results do not rule out infection/co-infection with other organisms. ??The agent(s) detected by the FilmArray RP2.1 may not be the definite cause of disease. ??Additional testing (lab, imaging, etc.) may be necessary when evaluating a patient with possible respiratory tract infection. The FilmArray RP2.1 assay has FDA clearance for testing of MANAGER TEST swabs. ??The performance characteristics of this assay have been determined by [facility]. Current interpretive data was last revised on 2020. Testing performed by: [facility], [address] [place] [address], [place]., [address] Nasopharyngeal 04/29/2024 11 :35 AM TANK CAR INSPECTOR 04/29/2024 1:22 PM TANK CAR INSPECTOR [facility] ([place]) - 04/29/2024 2:16 PM TANK CAR INSPECTOR Is the Patient experiencing symptoms consistent with COVID?->Yes Surveillance testing for transplant patient?->No Ruel Fernández MD LAB MICROBIOLOGY - GENERAL ORDER LEV Final Result [facility] ([place]) 1 [facility] Department [place] [address] [place] * eGFR (04/29/2024 11:30 AM TANK CAR INSPECTOR) Pathologist [facility] eGFR 81 >=60 mL/min/1. 73 m2 Comment: Interpretive Data Reference Interval Normal ?>/= 90 mL/min/1.73m2 Mildly decreased* ? 60 - 89 mL/min/1.73m2 Mildly to moderately decreased ?45 - 59 mL/min/1.73m2 Moderately to severely decreased ??30 - 44 mL/min/1.73m2 Severely decreased ?15 - 29 mL/min/1.73m2 Kidney Failure ?< 15 ??mL/min/1.73m2 *Relative to young adult level Estimated glomerular filtration rate is determined by the 2020 CKD-EPI equation recommended by the National Kidney Foundation (A Unifying Approach to GFR Estimation: Recommendations of the NKF-ASK Task Force on Reassessing the Inclusion of Race in Diagnosing Kidney Disease, JASN 202). The CKD-EPI equation should not be used for patients with unstable renal function and has not been validated in children and those over 70. Current interpretive data was last reviewed 2021. Blood 04/29/2024 11:3 0 AM TANK CAR INSPECTOR 04/29/2024 11:38 AM TANK CAR INSPECTOR Ruel Fernández MD LAB BLOOD ORDERABLES Final Resul t [facility] ([place]) 1 [facility] Department [place] [address] * Differential, auto (04/29/2024 11:30 AM TANK CAR INSPECTOR) Neutrophil abs 6.2 1.5 - 6.5 K/cumm Imm gran abs 0.0 0.0 - 0.1 K/cumm [facility] ([place]) Lymphocyte abs 1.2 0.8 - 3.3 K/cumm [facility] ([place]) Monocyte abs 0.6 0.2 - 0.8 K/cumm [facility] ([place]) Eosinophil abs 0.1 0.0 - 0.5 K/cumm [facility] ([place]) Basophil abs 0.0 0.0 - 0.1 K/cumm [facility] ([place]) Neutrophil pct 76.9 % [facility] ([place]) Comment: Interpretive Data Percent cell count reference ranges are not reported, since discordance with absolute values may lead to misinterpretation of CBC data. Current Interpretive Data was last revised on 2017. Imm gran pct 0.5 % [facility] ([place]) Comment: Interpretive Data Percent cell count reference ranges are not reported, since discordance with absolute values may lead to misinterpretation of CBC data. Current Interpretive Data was last revised on 2017. Lymphocyte pct 14.7 % [facility] ([place]) Comment: Interpretive Data Percent cell count reference ranges are not reported, since discordance with absolute values may lead to misinterpretation of CBC data. Current Interpretive Data was last revised on 2017. Monocyte pct 6.9 % [facility] ([place]) Comment: Interpretive Data Percent cell count reference ranges are not reported, since discordance with absolute values may lead to misinterpretation of CBC data. Current Interpretive Data was last revised on 2017. Eosinophil pct 0.6 % [facility] ([place]) Comment: Interpretive Data Percent cell count reference ranges are not reported, since discordance with absolute values may lead to misinterpretation of CBC data. Current Interpretive Data was last revised on 2017. Basophil pct 0.4 % [facility] ([place]) Comment: Interpretive Data Percent cell count reference ranges are not reported, since discordance with absolute values may lead to misinterpretation of CBC data. Current Interpretive Data was last revised on 2017. Blood 04/29/2024 11:3 0 AM TANK CAR INSPECTOR 04/29/2024 11:39 AM TANK CAR INSPECTOR Ruel Fernández MD LAB BLOOD ORDERABLES Final Resul t [facility] ([place]) 1 [facility] Department [place] [address] * (ABNORMAL) CBC with auto differential (04/29/2024 11:30 AM TANK CAR INSPECTOR) WBC 8.1 3.8 - 9.9 K/cumm Hgb 13.8 11.9 - 15.5 g/dL [facility] ([place]) Hct 42.3 35.6 - 45.5 % [facility] ([place]) Plt 136(L) 150 - 400 K/cumm [facility] ([place]) MPV 10.2 9.1 - 12.3 fL [facility] ([place]) RBC 4.61 3.90 - 5.20 M/cumm [facility] ([place]) MCV 91.8 81.3 - 96.4 fL [facility] ([place]) MCH 29.9 27.1 - 33.3 pg [facility] ([place]) MCHC 32.6 32.3 - 35.7 g/dL [facility] ([place]) RDW CV 13.5 11.1 - 14.9 % [facility] ([place]) RDW SD 45.6 35.7 - 48.1 fL [facility] ([place]) NRBC abs 0.00 0.00 - 0.01 K/cumm [facility] ([place]) Blood 04/29/2024 11:3 0 AM TANK CAR INSPECTOR 04/29/2024 11:39 AM TANK CAR INSPECTOR Ruel Fernández MD LAB BLOOD ORDERABLES Final Resul t [facility] ([place]) 1 [facility] [place] [address] * (ABNORMAL) Comprehensive metabolic panel (04/29/2024 11:30 AM TANK CAR INSPECTOR) Sodium 135 135 - 145 mmol/L Potassium, pl 3.8 3.3 - 4.9 mmol/L [facility] ([place]) Chloride 99 97 - 110 mmol/L [facility] ([place]) CO2 18(L) 22 - 32 mmol/L [facility] ([place]) Anion gap 18(H) 2 - 15 mmol/L [facility] ([place]) BUN 9 6 - 25 mg/dL [facility] ([place]) Creatinine 0.78 0.60 - 1.10 mg/dL [facility] ([place]) Glucose 221(H) 70 - 199 mg/dL [facility] ([place]) Comment: Interpretive Data Fasting glucose >/= 126 mg/dl is diagnostic for diabetes. ?? Fasting is defined as no caloric intake for at least 8 hours. Fasting glucose between 100 mg/dl to 125 mg/dl is diagnostic of prediabetes. In a patient with classic symptoms of hyperglycemia or hyperglycemic crisis, a random glucose >/= 200 mg/dl is diagnostic for diabetes. In the absence of unequivocal hyperglycemia, results should be confirmed by repeat testing. The classification and Diagnosis of Diabetes Diabetes Care 2021; 46: S19-S40. Current interpretive data was last revised 2022. Calcium 8.1(L) 8.5 - 10.3 mg/dL [facility] ([place]) Bilirubin, total 0.9 0.1 - 1.2 mg/dL [facility] ([facility]) Protein, pl 6.1(L) 6.5 - 8.5 g/dL [facility] ([place]) Albumin 3.7 3.5 - 5.0 g/dL [facility] ([facility]) Alk phos 88 40 - 130 Units/L [facility] ([place]) ALT 20 7 - 45 Units/L [facility] ([place]) AST 27 10 - 45 Units/L [facility] ([facility]) Comment:Slightly Hemolyzed S pecimen Blood 04/29/2024 11:3 0 AM TANK CAR INSPECTOR 04/29/2024 11:38 AM TANK CAR INSPECTOR us Ruel Fernández MD LAB BLOOD ORDERABLES Final Resul t [facility] ([facility]) 1 [facility] [place] [address] * ECG 12 lead (04/29/2024 11:29 AM TANK CAR INSPECTOR) 04/29/2024 11:2 9 AM TANK CAR INSPECTOR Narrative [facility] - 05/01/2024 8:40 AM TANK CAR INSPECTOR Vent Rate: 87 bpm RR Interval: 683 msec OR Interval: 200 msec QRS Duration: 94 msec QT Interval: 343 msec QTC Interval: 388 msec P-R-T [place]: 50 - -4 - 79 degrees IMPRESSION: SINUS RHYTHM SEPTAL MYOCARDIAL INFARCTION , OF INDETERMINATE AGE [40+ ms Q WAVE IN V1/V2] ABNORMAL ECG No change compared to prior EKG Electronically Signed By: Damien Chilel MD [facility] Ruel Fernández MD ECG ORDERABLES Final Result [facility] * Colonoscopy Report -[facility] (04/04/2024 10:21 AM CDT) Anatomical Region Laterality Modality Other Historical Provider GI PROCEDURE ORDERABLES F inal Result * Dexa Axial Skeleton Bone Density 1 or 2 Site (03/23/2024 1:50 PM CDT) Anatomical Region Laterality Modality Body N/A Other 03/23/2024 4:44 PM CDT Narrative 03/23/2024 4:45 PM CDT EXAM DESCRIPTION: DEXA AXIAL SKELETON BONE DENSITY 1 OR MORE SITES REASON FOR STUDY: 74 y/o ?? year old ??F ??with given history of: ??Post menopausal status. ??History prior fracture and secondary osteoporosis. ?? Patient takes vitamin-D. ? 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 Maximum height: ??62 ??inches ? Weight: ??163.2 ??pounds Risk factors: ??None COMPARISON: None available FINDINGS: AP LUMBAR SPINE L1-L4: Total BMD is 1.188 g/cm2 T-score is 1.3 LEFT HIP: Total BMD is 0.821 g/cm2 T-score is -1.0 Femoral neck BMD is 0.550 g/cm2 T-score is -2.7 ?? FRAX: FRAX not reported due to T-scores of hip, femoral neck and/or spine being at or below -2.5 (Osteoporosis). IMPRESSION: Osteoporosis. REFERENCE: Bone mineral density: T-Score: ?Normal (T-score above or = -1.0) ?Low bone mass ??(T-score between -1.0 and -2.5) replaces the previously used term osteopenia ?Osteoporosis (T-score = or below -2.5) Z-Score: ? Within the expected range for age (Z-score above -2.0) ? Below the expected range for age (Z-score is -2.0 or below) Please see below follow up recommendations. Medical evaluation for secondary causes of low bone mineral density may be appropriate. FRAX is a World Health Organization validated fracture risk assessment tool that calculates a person's 10 year probability of a major osteoporosis related fracture and hip fracture. ??According to the National Osteoporosis Foundation guidelines, postmenopausal women and men age 50 or older with low bone mass and a 10 year probability of a major osteoporosis related fracture = or greater than 20% or a 10 year probability of a hip fracture = or greater than 3% should be considered for pharmacological treatment for the prevention of osteoporosis. For further information, including treatment recommendations, please refer to the 2019 ISCD Official Positions (http://www.iscd.org) and the NOF's Clinician's Guide to Prevention and Treatment of Osteoporosis (http://www.nof.org/professionals/clinical-guidelines) THIS IS AN ELECTRONICALLY VERIFIED FINAL REPORT 03/23/2024 4:45 PM - Electronically signed by ??Rebecca Syed M.D. TW: SHAHEEN D: ??03/23/2024 4:45 PM T: ??03/23/2024 4:45 PM Report ID: [id number] Reading Location: ??[id number] Procedure Note Rebecca Syed MD - 03/23/2024 EXAM DESCRIPTION: DEXA AXIAL SKELETON BONE DENSITY 1 OR MORE SITES REASON FOR STUDY: 74 y/o year old F with given history of: Post menopausal status. History prior fracture and secondary osteoporosis. 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 IMPRESSION: Osteoporosis. REFERENCE: Bone mineral density: T-Score: Normal (T-score above or = -1.0) Low bone mass (T-score between -1.0 and -2.5) replaces thepreviously used term osteopenia Osteoporosis (T-score = or below -2.5) Z-Score: Within the expected range for age (Z-score above -2.0) Below the expected range for age (Z-score is -2.0 or below) Please see below follow up recommendations. Medical evaluation forsecondary causes of low bone mineral density may be appropriate. FRAX is a World Health Organization validated fracture risk assessmenttool that calculates a person's 10 year probability of a major osteoporosisrelated fracture and hip fracture. According to the National OsteoporosisFoundation guidelines, postmenopausal women and men age 50 or older with low bonemass and a 10 year probability of a major osteoporosis related fracture = or greater than 20% or a 10 year probability of a hip fracture = or greaterthan 3% should be considered for pharmacological treatment for the preventionof osteoporosis. For further information, including treatment recommendations, please referto the 2019 ISCD Official Positions (http://www.iscd.org) and the NOF's Clinician's Guide to Prevention and Treatment of Osteoporosis (http://www.nof.org/professionals/clinical-guidelines) THIS IS AN ELECTRONICALLY VERIFIED FINAL REPORT 03/23/2024 4:45 PM - Electronically signed by Rebecca Syed M.D. TW: TW Report ID: [id number] Reading Location: [id number] Mer Simpson NP IMG DXA PROCEDURES Final R esult * (ABNORMAL) Albumin Creatinine Ratio, Urine (02/14/2024 11:16 AM CDT) Albumin Ur 59.2 mg/L Comment: Interpretive Data No reference range established. Current interpretive data was last revised 2018. Testing performed by: [facility], [address] [place] [address]., [id number] Creatinine Ur 187.7 mg/dL [facility] (KAR[facility]) Comment: Interpretive Data No reference range established. Current interpretive data was last revised 2018. Testing performed by: [facility], [address] [place] [address]., [id number] Albumin Creatinine Ratio, Ur 32(H) 1 - 29 mg/g [facility] (KARIME) Comment:Testing performed by : [facility], [address] [place] [address]., [id number] Urine 02/14/2024 11:1 6 AM CDT 02/14/2024 6:30 PM CDT Mer Simpson NP LAB URINE ORDERABLES Final Result Performing Organization Address City/State/[facility] Co de Phone Number [facility] (KARIME) 1 [facility] [place] [address] * (ABNORMAL) Lipid panel (02/14/2024 11:16 AM CDT) Cholesterol 138 30 - 199 mg/dL Comment: Interpretive Data Ages < or = 19 years ??Acceptable: ? <170 mg/dL ??Borderline high: ??170-199 mg/dL ??High: ? >or= 200 mg/dL Ages > or = 20 years ??Desirable: ?<200 mg/dL ??Borderline high: ??200-239 mg/dL ??High: ? >or= 240 mg/dL Literature References: 1. Expert Panel on Integrated Guidelines for Cardiovascular Health and Risk Reduction in Children and Adolescents. Pediatrics 2011;128:S213 2. NCEP Expert Panel. Circulation 2004;110:227 Current Interpretive Data was last revised on 2018. Testing performed by: [facility], [address] [place] [address]., [id number] Triglycerides 175(H) <=149 mg/dL [facility] ([facility]) Comment: Interpretive Data Ages < or = 9 years ??Acceptable: ? <75 mg/dL ??Borderline high: ??75-99 mg/dL ??High: ? >or= 100 mg/dL Ages 10 to 20 years ??Acceptable: ? <90 mg/dL ??Borderline high: ??90-129 mg/dL ??High: ? >or= 130 mg/dL Ages > or = 20 years ??Desirable: ?<150 mg/dL ??Borderline high: ??150-199 mg/dL ??High: ? 200-499 mg/dL ?Very high: ?? >or= 499 mg/dL Literature References: 1. Expert Panel on Integrated Guidelines for Cardiovascular Health and Risk Reduction in Children and Adolescents. Pediatrics 2011;128:S213 2. NCEP Expert Panel. Circulation 2004;110:227 Current Interpretive Data was last revised on 2018. Testing performed by: [facility], [address] [place] [address]., [id number] HDL 34(L) >=40 mg/dL [facility] ([facility]) Comment: Interpretive Data Ages < or = 19 years ??Acceptable: ? >45 mg/dL ??Borderline low: ?? 40-45 mg/dL ??Low: ? <40 mg/dL Ages > or = 20 years ??Desirable: ?>or= 60 mg/dL ??Low: ? <40 mg/dL Literature References: 1. Expert Panel on Integrated Guidelines for Cardiovascular Health and Risk Reduction in Children and Adolescents. Pediatrics 2011;128:S213 2. NCEP Expert Panel. Circulation 2004;110:227 Current Interpretive Data was last revised on 2018. Testing performed by: [facility], [address] [place] [address], [place]., [address] LDL, calculated 74 <=129 mg/dL [facility] ([place]IME) Comment: Interpretive Data Ages < or = 19 years ??Acceptable: ? <110 mg/dL ??Borderline high: ??110-129 mg/dL ??High: ?>or= 130 mg/dL Ages > or = 20 years ??Optimal: ? <100 mg/dL ??Near optimal: ?100-129 mg/dL ??Borderline high: ?? 130-159 mg/dL ??High: ?>160 mg/dL Calculated using the Cole LDL-C estimating equation. This equation was implemented on 2024. Prior to this date LDL-C was estimated using the Friedewald equation. Literature References: 1. Expert Panel on Integrated Guidelines for Cardiovascular Health and Risk Reduction in Children and Adolescents. Pediatrics 2011;128:S213 2. NCEP Expert Panel. Circulation 2004;110:227 3. Cole Forman et al. KIESHA Cardiol. 2020 October 05;5(5):540-548. doi: 10.1001/jamacardio.2020.0013 Current Interpretive Data was last revised on 2024. Testing performed by: [facility], [address] [place] [address], [place]., [address] Non-HDL Cholesterol 104 mg/dL [facility] ([place]ARIME) Comment: Interpretive Data Ages < or = 19 years ??Acceptable: ?<120 mg/dL ??Borderline high: ??120-144 mg/dL ??High: ?>145 mg/dL Ages > or = 20 years ??When triglycerides are >200 mg/dL, Non-HDL cholesterol is a secondary target of ? therapy with treatment goals that are 30 mg/dL greater than the LDL cholesterol target. ? Literature References: 1. Expert Panel on Integrated Guidelines for Cardiovascular Health and Risk Reduction in Children and Adolescents. Pediatrics 2011;128:S213 2. NCEP Expert Panel. Circulation 2004;110:227 Current Interpretive Data was last revised on 2018. Testing performed by: [facility], [address] [place] [address]., [id number] Chol/HDL ratio 4 [facility] (KARIME) Comment:Testing performed by : [facility], [address] [place] [address]., [id number] Blood 02/14/2024 11:1 6 AM CDT 02/14/2024 6:30 PM CDT Mer Simpson MANAGER TEST LAB BLOOD ORDERABLES Final Result [facility] ([place]) 1 [facility] [place] [address] * DIABETES EYE EXAM (10/19/2023) SCRIBED DIABETIC DILATED EYE EXAM Normal Historical Provider HEALTH MAINTENANCE Final Result * Screening Mammogram Bilateral W Philipp (04/16/2023 12:56 PM TANK CAR INSPECTOR) Anatomical Region Laterality Modality Breast Bilateral Mammography 04/28/2023 2:18 PM TANK CAR INSPECTOR Impressions 04/28/2023 2:18 PM TANK CAR INSPECTOR There is no mammographic evidence of malignancy. A 1 year screening mammogram is recommended. BI-RADS: 1 - Negative. The patient has been or will be contacted. The patient will be entered into a reminder system with a target due date of 1 year for her next mammogram. Electronically signed by: Jaida Rothman M.D. Narrative 04/28/2023 2:18 PM TANK CAR INSPECTOR EXAMINATION: SCREENING MAMMOGRAM BILATERAL W PHILIPP ORDERING HEALTHCARE PROVIDER: MER SIMPSON HISTORY: Routine screening mammography. COMPARISON: ??11/11/2020, 07/14/2018, 05/13/2015 TECHNIQUE: CC and MLO views of the bilateral breasts were obtained with digital technique using breast tomosynthesis with C view. Computer aided detection was utilized. FINDINGS: DENSITY: There are scattered fibroglandular elements in the bilateral breasts. BREASTS: There are no suspicious masses, suspicious calcifications, or other suspicious findings in either breast. There has been no suspicious interval change. Mer Simpson NP IMG MAMMO PROCEDURES Final Result from Last 3 Months or Most Recently Relevant to Health Maintenance Additional Health Concerns Infection Onset Date Last Indicated COVID: Recovered Comment:Added based on recent COVID infection. 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
--- OUTSIDE RECORDS SUMMARY | 2024-07-07 11:43 | XMS_ITS | Patient Health Summary ---
Author Organization [facility] [employer] Address [address] [place] [address] Care Team Providers Care Char House Supervisor Name Role Phone Júnior Puente MD Primary Care Provider [phone] Note from [facility],non-owned Affiliates and Associated Physician Practices is amultiple site organization consisting of ambulatory clinics and hospital sitesin [place], [place], [place] and [place]. This disclosure is being madepursuant to the Care Everywhere program and may not contain all information available regarding this patient. Last updated 18.[facility] [employer] Allergies No known active allergies Medications * Be aware that medications may not be up to date on this document. Alwaysverify current medications with the patient. * aspirin (ASPIRIN) 81 MG chew tablet(Started 03/02/2017) Take 81 mg by mouth DAILY. 3 refills left * rosuvastatin (CRESTOR) 40 MG tablet(Started 02/07/2016) * Biotin 1000 MCG(Started 04/16/2016) Take by mouth. * quinapril (ACCUPRIL) 40 MG tablet(Started 02/05/2013) Take 5 mg by mouth once daily * gabapentin (NEURONTIN) 300 MG capsule(Started 10/01/2014) Take 300 mg by mouth 2 times daily Takes 1 tab BID * DULoxetine (CYMBALTA) 60 MG capsule(Started 09/18/2014) Take by mouth once daily * clopidogrel (PLAVIX) 75 MG tablet(Started 01/13/2013) Take 75 mg by mouth once daily * empagliflozin (JARDIANCE) 25 MG tablet Take 25 mg by mouth once daily * febuxostat (ULORIC) 40 MG tablet Take 40 mg by mouth once daily * busPIRone (BUSPAR) 7.5 MG tablet Take 7.5 mg by mouth 2 times daily * colchicine (COLCRYS) 0.6 MG tablet Take 0.6 mg by mouth once daily * Magnesium 400 MG Take by mouth once daily * Vitamin D, Cholecalciferol, 25 MCG (1000 UT) CAPS Take by mouth once daily * Cyanocobalamin (B-12) 2500 MCG Take by mouth every 2 days * Cranberry 500 MG TABS Take by mouth once daily * TURMERIC PO Take 1,400 mg by mouth once daily * ALPRAZolam (XANAX) 0.5 MG tablet Take 0.5 mg by mouth at bedtime Active Problems Problem Noted Date Diagnosed Date Transient cerebral ischemic attack 2017 Fall 03/08/2014 Dizziness and giddiness 03/08/2014 Occlusion and stenosis of unspecified carotid ar shannon 03/02/2013 Type 2 diabetes mellitus with diabetic neuropath y 01/13/2013 Essential (primary) hypertension 01/13/2013 Cardiac arrhythmia 01/13/2013 Cerebral infarction 01/13/2013 Type 2 diabetes mellitus without complications 0 01/13/2013 Stenosis of left carotid artery Social History Tobacco Use Types Packs/Day Years [...] Comments Blood Pressure 118/58 07/23/2020 11:30 AM TRAIN RESERVATION CLERK Pulse 74 07/23/2020 11:30 AM TRAIN RESERVATION CLERK Temperature 36.5 ??C (97.7 ??F) 07/23/2020 10:[address] Respiratory Rate 6 07/23/2020 11:30 AM TRAIN RESERVATION CLERK Oxygen Saturation 94% 07/23/2020 11:30 AM TRAIN RESERVATION CLERK Inhaled Oxygen Concentration - - Weight 70.8 kg (156 lb) 07/23/2020 8:34 AM TRAIN RESERVATION CLERK Height 157.5 cm (5' 2 ) 07/23/2020 8:34 AM TRAIN RESERVATION CLERK Body Mass Index 28.53 07/23/2020 8:34 AM TRAIN RESERVATION CLERK Procedures * IR CAROTID CEREBRAL ANGIOGRAM(Performed 07/23/2020) Performed for Carotid stenosis, left, Vertebral artery stenosis, left * GLUCOSE - POINT OF CARE(Performed 07/23/2020) * PT-INR [facility](Performed 07/23/2020) Performed for Acute cerebrovascular insufficiency * CBC W AUTO DIFFERENTIAL(Performed 07/23/2020) Performed for Preop examination * BASIC METABOLIC PANEL (CALCIUM TOTAL)(Performed 07/23/2020) Performed for Preop examination * IR CAROTID CEREBRAL ANGIOGRAM(Performed 09/15/2017) Performed for Vertebral artery stenosis, right * BASIC METABOLIC PANEL (CALCIUM TOTAL)(Performed 09/15/2017) Performed for Therapeutic procedure * CBC W/O DIFFERENTIAL(Performed 09/15/2017) Performed for Cerebral atherosclerosis , Therapeutic procedure * PT-INR [facility](Performed 09/15/2017) Performed for Therapeutic procedure * MRI BRAIN WO CONTRAST(Performed 03/22/2017) * GLUCOSE ACCUCHECK(Performed 03/02/2017) * GLUCOSE ACCUCHECK(Performed 03/02/2017) * PHOSPHORUS BLOOD(Performed 2017) * MAGNESIUM BLOOD(Performed 2017) * COMPREHENSIVE METABOLIC PANEL(Performed 2017) * CBC W AUTO DIFFERENTIAL(Performed 2017) * GLUCOSE ACCUCHECK(Performed 2017) * GLUCOSE ACCUCHECK(Performed 2017) * GLUCOSE ACCUCHECK(Performed 2017) * IR CAROTID CEREBRAL ANGIOGRAM(Performed 2017) * IR CAROTID CEREBRAL ANGIOGRAM(Performed 2017) * IR CAROTID CEREBRAL ANGIOGRAM(Performed 2017) * IR US GUIDE VASCULAR ACCESS(Performed 2017) * ACT - POCT (IP) [facility](Performed 2017) * CBC W AUTO DIFFERENTIAL(Performed 2017) * BASIC METABOLIC PANEL (CALCIUM TOTAL)(Performed 2017) * PTT [facility](Performed 2017) * PT-INR [facility](Performed 2017) * CBC W AUTO DIFFERENTIAL(Performed 2017) * VAS CAROTID DUPLEX BILATERAL(Performed 12/17/2016) * VAS CAROTID DUPLEX BILATERAL(Performed 04/16/2016) * CT ANGIO BRAIN AND NECK(Performed 10/09/2015) * CREATININE BLOOD - POCT (IP) [facility](Performed 10/09/2015) * VAS CAROTID DUPLEX BILATERAL(Performed 09/11/2015) * VAS CAROTID DUPLEX BILATERAL(Performed 09/26/2014) * MRI ANGIO BRAIN ARTERIAL WO CONT(Performed 03/08/2014) * MRI ANGIO NECK W CONTRAST(Performed 03/08/2014) * MRI BRAIN WWO CONTRAST(Performed 03/08/2014) * CREATININE BLOOD - POCT (IP) [facility](Performed 03/08/2014) * VAS CAROTID DUPLEX BILATERAL(Performed 02/28/2014) * VAS ARTERIAL ANKLE ARM INDEX(Performed 10/06/2013) * VAS CAROTID DUPLEX BILATERAL(Performed 09/21/2013) * VAS CAROTID DUPLEX BILATERAL(Performed 03/02/2013) * GLUCOSE ACCUCHECK(Performed 02/05/2013) * CALCIUM IONIZED WHOLE BLOOD(Performed 02/05/2013) * BASIC METABOLIC PANEL (CALCIUM TOTAL)(Performed 02/05/2013) * PHOSPHORUS BLOOD(Performed 02/05/2013) * MAGNESIUM BLOOD(Performed 02/05/2013) * CBC W/O DIFFERENTIAL(Performed 02/05/2013) * GLUCOSE ACCUCHECK(Performed 02/04/2013) * GLUCOSE ACCUCHECK(Performed 02/04/2013) * GLUCOSE ACCUCHECK(Performed 02/04/2013) * CALCIUM IONIZED WHOLE BLOOD(Performed 02/04/2013) * CBC W/O DIFFERENTIAL(Performed 02/04/2013) * BASIC METABOLIC PANEL (CALCIUM TOTAL)(Performed 02/04/2013) * PHOSPHORUS BLOOD(Performed 02/04/2013) * MAGNESIUM BLOOD(Performed 02/04/2013) * GLUCOSE ACCUCHECK(Performed 02/03/2013) * GLUCOSE ACCUCHECK(Performed 02/03/2013) * ANTITHROMBIN III ACTIVITY(Performed 02/03/2013) * URINALYSIS W/MICROSCOPIC NO CULTURE(Performed 02/03/2013) * CULTURE URINE(Performed 02/03/2013) * GLUCOSE ACCUCHECK(Performed 02/03/2013) * TYPE + SCREEN PANEL(Performed 02/03/2013) * PT-INR [facility](Performed 02/03/2013) * EKG 12-LEAD(Performed 01/20/2013) * VAS CAROTID DUPLEX BILATERAL(Performed 01/13/2013) * GLUCOSE ACCUCHECK(Performed 01/13/2013) * GLUCOSE ACCUCHECK(Performed 01/13/2013) * BASIC METABOLIC PANEL (CALCIUM TOTAL)(Performed 01/13/2013) * MAGNESIUM BLOOD(Performed 01/13/2013) * PHOSPHORUS BLOOD(Performed 01/13/2013) * CBC W AUTO DIFFERENTIAL(Performed 01/13/2013) * GLUCOSE ACCUCHECK(Performed 01/12/2013) * TROPONIN I(Performed 01/12/2013) * CK + CKMB PANEL(Performed 01/12/2013) * GLUCOSE ACCUCHECK(Performed 01/12/2013) * GLUCOSE ACCUCHECK(Performed 01/12/2013) * CBC W AUTO DIFFERENTIAL(Performed 01/12/2013) * GLUCOSE ACCUCHECK(Performed 01/12/2013) * TROPONIN I(Performed 01/12/2013) * CK + CKMB PANEL(Performed 01/12/2013) * B-TYPE NATRIURETIC PEPTIDE(Performed 01/12/2013) * C-REACTIVE PROTEIN(Performed 01/12/2013) * HEMOGLOBIN A1C(Performed 01/12/2013) * LIPID PROFILE(Performed 01/12/2013) * BASIC METABOLIC PANEL (CALCIUM TOTAL)(Performed 01/12/2013) * MAGNESIUM BLOOD(Performed 01/12/2013) * PHOSPHORUS BLOOD(Performed 01/12/2013) * TROPONIN I(Performed 01/12/2013) * CK + CKMB PANEL(Performed 01/12/2013) * GLUCOSE ACCUCHECK(Performed 01/11/2013) * URINALYSIS REFLEX TO MICROSCOPIC NO CULTURE(Performed 01/11/2013) * GLUCOSE ACCUCHECK(Performed 01/11/2013) * XR CHEST 1VW PORTABLE(Performed 01/11/2013) * MRI BRAIN WO CONTRAST(Performed 01/11/2013) * CK + CKMB PANEL(Performed 01/11/2013) * TROPONIN I(Performed 01/11/2013) * PT-INR [facility](Performed 01/11/2013) * PTT [facility](Performed 01/11/2013) * CT ANGIO BRAIN AND NECK(Performed 01/11/2013) * GLUCOSE ACCUCHECK(Performed 01/11/2013) * ECHO COMPLETE(Performed 01/11/2013) Results * IR CAROTID CEREBRAL ANGIOGRAM (07/23/2020 10:11 AM TRAIN RESERVATION CLERK) Only the most recent of5 resultswithin the time period is included. Anatomical Region Laterality Modality Head X-Ray Angiograph y 07/23/2020 10:3 8 AM TRAIN RESERVATION CLERK Impressions 07/29/2020 5:11 PM TRAIN RESERVATION CLERK Impression: 1.Proximal left internal carotid artery stenosis of 60% 2.Stable and patent right vertebral artery (V1 segment) stent I, Dr. ROCIO AMEZQUITA M.D. have personally reviewed and interpreted this examination/study. This report was electronically signed by ROCIO AMEZQUITA M.D. ??on 07/29/2020 5:11 PM . Narrative 07/29/2020 5:11 PM TRAIN RESERVATION CLERK Procedure: Cerebral angiogram 07/23/2020 Comparison study: 2017, 09/15/2017 History: The patient a 70 years -year-old Female withhx ofposterior circulation symptoms s/p R V1 stenting 2017, falls, LICA 78% stenosis,Left vertebral artery origin stenosis/occlusion. Cerebral catheter angiogram to quantify the stenosis. Consumer Insights Specialist: Francheska Amezquita Recreational Specialist(s): Umm Olivas Vessels: Ultrasound guided access of right radial artery Right radial artery angiogram Left common carotid angiogram: Cervical and Cerebral Right subclavian artery angiogram: Cervical and Cerebral Anesthesia: Moderate sedation on this adult patient was ordered by the head gauge unit operator, administered intravenously in my presence, and monitored by the procedure nurse as an independent trained observer who was present throughout the procedure. The following parameters were monitored: oxygen saturation, heart rate, blood pressure, and response to care. Intra-service sedation start time was 0935 and end time was 1002 during which I was present. Total physician intra-service sedation time was 27 minutes. For details on sedation patient evaluation, please review the evaluation in [facility]. For details on monitored clinical parameters during the intra-service sedation time, please review the procedure nurse documentation in [facility]. Procedural detail: The risks, benefits, and alternatives to procedure were discussed in detail with the patient and her ??family. These included but were not limited to the risk of blood loss, vessel injury, stroke, renal injury, and contrast allergy. The patient was brought to the biplane angiography suite where she ??underwent prep and drape procedures. Limited ultrasound of the right radial artery demonstrated a patent vessel. A quiroz scale image was documented. The right radial artery was accessed using a micropuncture needle. The needle entry was documented. Following a series of exchanges, a 5 [place] Slender Glidesheath was placed in the right radial artery. Heparin 3,000 units, verapamil 2.5 mg and nitroglycerin 300 mcg were given through the sheath for vasospasm prophylaxis. A 5 [place] Obrien 2 catheter was navigated into the aortic arch along with Glidewire 0.035. The catheter was used to select the left common carotid artery and a cerebral angiogram was obtained. The catheter was returned to the arch and used to select the right subclavian artery and a cerebral angiogram was obtained. All catheters and sheaths were removed from the arterial system. Hemostasis was achieved using a radial band. Hemostasis was immediate at the end of the closure procedure. The radial pulse was palpable at the end of the closure procedure. The patient tolerated the procedure without immediate complications. She was returned to the recovery area and hemodynamically stable condition neurologically unchanged. The estimated blood loss was less than 10 mL. A total of ??4.8 ??minutes of fluoroscopic time and 60 ml of Isovue-300 contrast were utilized for the study. Findings: There was good arterial, capillary, and venous opacification of all angiographic runs. The right subclavian artery catheter angiogram reveals a patent right V1 stent with good flow. The V2, V3, V4, and vertebrobasilar junction are normal in course and caliber. The basilar artery and right PICA were visualized, normal in course and caliber. The bilateral roll sheeting cutter were patent though partially visualized. The left common carotid artery angiogram reveals a proximal left internal carotid artery stenosis of 60% just above the carotid bulb with with atherosclerotic changes. Normal course and caliber of the intracranial internal carotid artery. The middle cerebral artery and anterior cerebral artery are also normal in course and caliber as is the venous drainage. Procedure Note Rocio Amezquita MD - 07/29/2020 Procedure: Cerebral angiogram 07/23/2020 Comparison study: 2017, 09/15/2017 History: The patient a 70 years -year-old Female withhx ofposterior circulation symptoms s/p R V1 stenting 2017, falls, LICA 78% stenosis,Left vertebral artery origin stenosis/occlusion. Cerebral catheter angiogram to quantify the stenosis. Consumer Insights Specialist: Francheska Amezquita Recreational Specialist(s): Umm Olivas Vessels: Ultrasound guided access of right radial artery Right radial artery angiogram Left common carotid angiogram: Cervical and Cerebral Right subclavian artery angiogram: Cervical and Cerebral Anesthesia: Moderate sedation on this adult patient was ordered by the head gauge unit operator, administered intravenously in my presence, and monitored bythe procedure nurse as an independent trained observer who was present throughout the procedure. The following parameters were monitored:oxygen saturation, heart rate, blood pressure, and response to care. Intra-service sedation start time was 0935 and end time was 1002 during which I was present. Total physician intra-service sedation time was 27 minutes. For details on sedation patient evaluation, please review the evaluation in [facility]. For details on monitored clinical parameters during the intra-service sedation time, please review the procedure nurse documentation in [facility]. Procedural detail: The risks, benefits, and alternatives to procedurewere discussed in detail with the patient and her family. These included but were not limited to the risk of blood loss, vessel injury, stroke, renal injury, and contrast allergy. The patient was brought to the biplane angiography suite where she underwent prep and drape procedures.Limited ultrasound of the right radial artery demonstrated a patent vessel. Agray scale image was documented. The right radial artery was accessed using a micropuncture needle. The needle entry was documented. Following aseries of exchanges, a 5 [place]ian Slender Glidesheath was placed in the right radial artery. Heparin 3,000 units, verapamil 2.5 mg and [id number] mcg were given through the sheath for vasospasm prophylaxis. A 5 B[place] Obrien 2 catheter was navigated into the aortic arch along withGlidewire 0.035. The catheter was used to select the left common carotid arteryand a cerebral angiogram was obtained. The catheter was returned to the arch and used to select the right subclavian artery and a cerebral angiogram was obtained. All catheters and sheaths were removed from the arterial system. Hemostasis was achieved using a radial band. Hemostasis was immediate at the end of the closure procedure. The radial pulse was palpable at theend of the closure procedure. The patient tolerated the procedure without immediate complications. She was returned to the recovery area and hemodynamically stable condition neurologically unchanged. The estimated blood loss was less than 10 mL. A total of 4.8 minutes of fluoroscopic time and 60 ml of Isovue-300 contrast were utilized for the study. Findings: There was good arterial, capillary, and venous opacification of all angiographic runs. The right subclavian artery catheter angiogram reveals a patent right V1 stent with good flow. The V2, V3, V4, and vertebrobasilar junction are normal in course and caliber. The basilar artery and right PICA were visualized, normal in course and caliber. The bilateral roll sheeting cutter were patent though partially visualized. The left common carotid artery angiogram reveals a proximal leftinternal carotid artery stenosis of 60% just above the carotid bulb with with atherosclerotic changes. Normal course and caliber of the intracranial internal carotid artery. The middle cerebral artery and anteriorcerebral artery are also normal in course and caliber as is the venous drainage. Impression: 1.Proximal left internal carotid artery stenosis of 60% 2.Stable and patent right vertebral artery (V1 segment) stent I, Dr. ROCIO AMEZQUITA M.D. have personally reviewed and interpretedthis examination/study. This report was electronically signed by ROCIO AMEZQUITA M.D. on 07/29/2020 5:11 PM . Rocio Amezquita MD IR ORDERABLES * (ABNORMAL) GLUCOSE - POINT OF CARE (07/23/2020 8:16 AM TRAIN RESERVATION CLERK) Pathologist [facility] Glucose WB/POC 195(H) 70 - 115 mg/dL 07/23/2020 8:17 AM [facility] Specimen Type Venous 07/23/2020 8:17 AM [facility] Blood BLOOD SPECIMEN / Unknown 07/23/2020 8:16 AM TRAIN RESERVATION CLERK 07/23/2020 8:17 AM TRAIN RESERVATION CLERK Rocio Amezquita MD LAB - POINT OF CARE ORDERABLES Performing Organization Address City/State/[facility] Co de Phone Number [facility] [address] [place] [address], [facility] [phone] * PT-INR [facility] (07/23/2020 8:14 AM TRAIN RESERVATION CLERK) Only the most recent of5 resultswithin the time period is included. Pathologist [facility] PT 12.8 12.1 - 14.8 Seconds 07/23/2020 8:50 AM [facility] INR 1.0 See Comment 07/23/2020 8:50 AM [facility] Comment:The suggested therap eutic range for standard coumadin (warfarin) therapy is an INR of 2.0-3.0. For high-risk patients (Mechanical Mitral Valve Prosthesis, etc.), the suggested prophylactic therapeutic range is an INR of 2.5-3.5. Blood BLOOD SPECIMEN / Unknown Venipuncture / Unknown 07/23/2020 8:14 AM TRAIN RESERVATION CLERK 07/23/2020 8:40 AM [facility] Rocio Amezquita MD LAB - COAGULATION OR DERABLES [facility] [address] [place] [address], [facility] [phone] * (ABNORMAL) CBC W AUTO DIFFERENTIAL (07/23/2020 8:14 AM [facility]) Only the most recent of6 resultswithin the time period is included. WBC 5.7 3.5 - 10.5 10? 3 /uL 07/23/2020 8:24 AM [facility] RBC 5.46(H) 3.90 - 5.00 10? 6 /uL 07/23/2020 8:24 AM [facility] Hemoglobin 15.5 12.0 - 15.5 g/dL 07/23/2020 8:24 AM [facility] Hematocrit 49.7(H) 35.0 - 45.0 % 07/23/2020 8:24 AM [facility] MCV 91.0 81.0 - 97.0 fL 07/23/2020 8:24 AM [facility] MCH 28.4 28.0 - 34.0 pg 07/23/2020 8:24 AM [facility] MCHC 31.2(L) 32.0 - 36.0 g/dL 07/23/2020 8:24 AM [facility] Platelet Count 177 150 - 400 10? 3 /uL 07/23/2020 8:24 AM [facility] RDW-SD 44.5 36.0 - 50.0 fL 07/23/2020 8:24 AM [facility] RDW-CV 13.6 11.2 - 14.8 % 07/23/2020 8:24 AM [facility] MPV 10.4 9.3 - 12.8 fL 07/23/2020 8:24 AM [facility] nRBC Absolute 0.00 0 10? 3 /uL 07/23/2020 8:24 AM [facility] nRBC Auto 0.0 0 /100 WBC 07/23/2020 8:24 AM [facility] Neutrophils % 67.2 35.0 - 70.0 % 07/23/2020 8:24 AM [facility] Lymphocytes % 23.4 19.7 - 55.1 % 07/23/2020 8:24 AM [facility] Monocytes % 6.5 3.0 - 15.0 % 07/23/2020 8:24 AM [facility] Eosinophils % 1.6 0.0 - 6.0 % 07/23/2020 8:24 AM [facility] Basophil % 0.9 0.0 - 1.5 % 07/23/2020 8:24 AM [facility] Neutrophils Absolute 3.8 1.6 - 7.0 10? 3 /uL 07/23/2020 8:24 AM [facility] Lymphocyte Absolute 1.3 0.8 - 2.9 10? 3 /uL 07/23/2020 8:24 AM [facility] Monocytes Absolute 0.37 0.14 - 0.66 10? 3 /uL 07/23/2020 8:24 AM [facility] Eosinophils Absolute 0.09 0.00 - 0.45 10? 3 /uL 07/23/2020 8:24 AM [facility] Basophils Absolute 0.05 0.00 - 0.06 10? 3 /uL 07/23/2020 8:24 AM [facility] Immature Granulocytes % 0.4 0.0 - 1.0 % 07/23/2020 8:24 AM [facility] Blood BLOOD SPECIMEN / Unknown Venipuncture / Unknown 07/23/2020 8:14 AM TRAIN RESERVATION CLERK 07/23/2020 8:18 AM [facility] Rod Olivas MD LAB - HEMATOLOGY ORD ERABLES [facility] [address] [place] [address], [facility] [phone] * (ABNORMAL) BASIC METABOLIC PANEL (CALCIUM TOTAL) (07/23/2020 8:14 AM TRAIN RESERVATION CLERK) Only the most recent of7 resultswithin the time period is included. BUN 13 7 - 26 mg/dL 07/23/2020 8:48 AM [facility] Creatinine 0.7 0.6 - 1.2 mg/dL 07/23/2020 8:48 AM [facility] Sodium 141 136 - 145 mmol/L 07/23/2020 8:48 AM [facility] Potassium 3.3(L) 3.5 - 4.5 mmol/L 07/23/2020 8:48 AM [facility] Chloride 106 98 - 107 mmol/L 07/23/2020 8:48 AM [facility] CO2 24 22 - 29 mmol/L 07/23/2020 8:48 AM [facility] Glucose 167(H) 70 - 115 mg/dL 07/23/2020 8:48 AM [facility] Calcium 8.5 8.4 - 10.2 mg/dL 07/23/2020 8:48 AM [facility] Anion Gap 14 8 - 18 07/23/2020 8:48 AM [facility] BUN/Creatinine Ratio 19 7 - 23 07/23/2020 8:48 AM [facility] Osmolality Calculated 296 270 - 300 mOsm/kg 07/23/2020 8:48 AM [facility] eGFR >60 >60 mL/min/1.7 3 m2 07/23/2020 8:48 AM [facility] Blood BLOOD SPECIMEN / Unknown Venipuncture / Unknown 07/23/2020 8:14 AM TRAIN RESERVATION CLERK 07/23/2020 8:18 AM [facility] Rod Olivas MD LAB - CHEMISTRY JASNO SANCHEZ [facility] Organization Address City/State/ZIP Co de Phone Number [facility] [address] [place] [address], [facility] [phone] * (ABNORMAL) CBC W/O DIFFERENTIAL (09/15/2017 11:26 AM CDT) Only the most recent of3 resultswithin the time period is included. WBC 5.7 3.5 - 10.5 10? 3 /uL 09/15/2017 11:56 AM [facility] RBC 4.55 3.90 - 5.00 10? 6 /uL 09/15/2017 11:56 AM [facility] Hemoglobin 13.8 12.0 - 15.5 g/dL 09/15/2017 11:56 AM [facility] Hematocrit 43.2 35.0 - 45.0 % 09/15/2017 11:56 AM [facility] MCV 94.9 81.0 - 97.0 fL 09/15/2017 11:56 AM [facility] MCH 30.3 28.0 - 34.0 pg 09/15/2017 11:56 AM [facility] MCHC 31.9(L) 32.0 - 36.0 g/dL 09/15/2017 11:56 AM [facility] Platelet Count 172 150 - 400 10? 3 /uL 09/15/2017 11:56 AM [facility] RDW-SD 48.9 36.0 - 50.0 fL 09/15/2017 11:56 AM [facility] RDW-CV 14.2 11.2 - 14.8 % 09/15/2017 11:56 AM [facility] MPV 10.5 9.3 - 12.8 fL 09/15/2017 11:56 AM [facility] Blood BLOOD SPECIMEN / Unknown Venipuncture / Unknown 09/15/2017 11:26 AM CDT 09/15/2017 11:29 AM CDT Rocio Amezquita MD LAB - HEMATOLOGY ORD ERABLES [address] [phone] * MRI BRAIN WO CONTRAST (03/22/2017 7:38 AM CDT) Only the most recent of2 resultswithin the time period is included. Anatomical Region Laterality Modality Head Other Impressions 03/22/2017 11:24 AM CDT IMPRESSION: 1. No acute cerebral infarction or acute intracranial abnormality identified. 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 This report was approved ??by Ephraim Carranza ?? on 03/22/2017 10:53 AM . I, Dr. RAMAN PETERSON M.D. have personally reviewed and interpreted this examination/study. This report was electronically signed by RAMAN PETERSON M.D. ??on 03/22/2017 11:24 AM . Narrative 03/22/2017 11:24 AM CDT This is a summary report. The complete report is available in the patient's medical record. If you cannot access the medical record, please contact the sending organization for a detailed fax or copy. EXAMINATION: Magnetic resonance imaging (MRI) of the brain without contrast HISTORY: Unsteady gait TECHNIQUE: MRI of the brain was performed without contrast according to standard protocol. FINDINGS: Comparison is made with a study from 03/08/2014. No evidence of acute or chronic hemorrhage is identified. No evidence of acute cerebral infarction is seen. There is mild cerebral volume loss with associated ex vacuo ventricular dilatation. No mass effect or midline shift is seen. A few subcortical white matter FLAIR hyperintensities in the bilateral frontal lobes are nonspecific, however may represents sequela of small vessel ischemic disease. There is an old infarction in the right basal ganglia with hemosiderin deposition. Additionally, there is an old lacunar infarct in the left peritrigonal white matter. The corpus callosum and sella appear normal. Other than a soto cisterna magna, the posterior fossa, brainstem, and craniocervical junction appear normal. The visualized portions of the orbits, paranasal sinuses, and mastoids appear normal. Normal flow voids are demonstrated in the carotid arteries and basilar artery. The calvarium and visualized cervical spine appear normal. Procedure Note Raman Peterson MD - 09/03/2017 This is a summary report. The complete report is available in thepatient's medical record. If you cannot access the medical record, pleasecontact the sending organization for a detailed fax or copy. EXAMINATION: Magnetic resonance imaging (MRI) of the brain withoutcontrast HISTORY: Unsteady gait TECHNIQUE: MRI of the brain was performed without contrast according tostandard protocol. FINDINGS: Comparison is made with a study from 03/08/2014. No evidence of acute or chronic hemorrhage is identified. No evidence ofacute cerebral infarction is seen. There is mild cerebral volume loss withassociated ex vacuo ventricular dilatation. No mass effect or midlineshift is seen. A few subcortical white matter FLAIR hyperintensities in the bilateral frontal lobes arenonspecific, however may represents sequela of small vessel ischemicdisease. There is an old infarction in the right basal ganglia withhemosiderin deposition. Additionally, there is an old lacunar infarct in the left peritrigonal white matter. The corpuscallosum and sella appear normal. Other than a soto cisterna magna, theposterior fossa, brainstem, and craniocervical junction appear normal. The visualized portions of the orbits, paranasal sinuses, and mastoidsappear normal. Normal flow voids are demonstrated in the carotid arteriesand basilar artery. The calvarium and visualized cervical spine appearnormal. IMPRESSION IMPRESSION: 1. No acute cerebral infarction or acute intracranial abnormalityidentified. 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 This report was approved by Ephraim Carranza on 03/22/2017 10:53 AM . I, Dr. RAMAN PETERSON M.D. have personally reviewed and interpreted thisexamination/study. This report was electronically signed by RAMAN PETERSON M.D. on 03/22/201711:24 AM . Rocio Amezquita MD MR ORDERABLES * (ABNORMAL) GLUCOSE ACCUCHECK (03/02/2017 8:01 AM CDT) Only the most recent of21 resultswithin the time period is included. Pathologist [facility] Glucose, Fingerstick 205(H) 70-115mg/d L mg/dL [facility] Comment:Consumer Insights Specialist: GWEN HUNTER 03/02/2017 8:01 AM CDT Rocio Amezquita MD LAB - CHEMISTRY JASON SANCHEZ [facility] Organization Address City/State/ZIP Co de Phone Number [facility]) * (ABNORMAL) COMPREHENSIVE METABOLIC PANEL (2017 11:41 PM CDT) Pathologist [facility] BUN 23 7 - 26 mg/dL [facility] Creatinine 0.9 0.6 - 1.2 mg/dL [facility] Sodium 139 136 - 145 mmol/L [facility] Potassium 3.8 3.5 - 4.5 mmol/L [facility] Chloride 101 98 - 107 mmol/L [facility] CO2 27 22 - 29 mmol/L [facility] Glucose 196(H) 70 - 115 mg/dL [facility] Calcium 8.3(L) 8.4 - 10.2 mg/dL [facility] Protein Total 6.1 6.0 - 8.3 g/dL [facility] Albumin 3.1(L) 3.4 - 5.0 g/dL [facility] Bilirubin Total 0.6 0.2 - 1.2 mg/dL [facility] Alkaline Phosphatase 79 40 - 150 Units/L [facility] ALT 13 0 - 55 Units/L [facility] AST 12 5 - 34 Units/L [facility] Anion Gap 15 8 - 18 [facility] BUN/Creatinine Ratio 26(H) 7 - 23 [facility] Osmolality Calculated 297 270 - 300 mOsm/kg [facility] Albumin/Globulin Ratio 1.0(L) 1.1 - 2.3 [facility] eGFR >60 >60 mL/min/1.7 3 m2 [facility] Blood specimen (specimen) BLOOD SPECIMEN / Unknown 2017 11:41 PM CDT 2017 11:46 PM CDT Rocio Amezquita MD LAB - CHEMISTRY JASON [facility] Organization Address City/State/[facility] Co de Phone Number [address] [phone] * PHOSPHORUS BLOOD (2017 11:41 PM CDT) Only the most recent of5 resultswithin the time period is included. Phosphorus 3.6 2.3 - 4.7 mg/dL [facility] Blood specimen (specimen) BLOOD SPECIMEN / Unknown 2017 11:41 PM CDT 2017 11:46 PM CDT Rocio Amezquita MD LAB - CHEMISTRY JASON SANCHEZ Performing Organization Address City/[facility]/ZIP Co de Phone Number [facility] [address] [place] [address], [facility] [phone] * MAGNESIUM BLOOD (2017 11:41 PM CDT) Only the most recent of5 resultswithin the time period is included. Magnesium 1.9 1.6 - 2.6 mg/dL [facility] Blood specimen (specimen) BLOOD SPECIMEN / Unknown 2017 11:41 PM CDT 2017 11:46 PM CDT Rocio Amezquita MD LAB - CHEMISTRY JASON SANCHEZ Performing Organization Address [facility] [place] [address], [facility] [phone] * IR US GUIDE VASCULAR ACCESS (2017 9:50 AM CDT) Anatomical Region Laterality Modality Other Impressions 03/07/2017 2:51 PM CDT Impression: Success stent-assisting angioplasty of right V1 segment stenosis. This report was electronically signed by ROCIO AMEZQUITA M.D. ??on 03/07/2017 2:51 PM . Narrative 03/07/2017 2:51 PM CDT Procedure: Cerebral angiogram and Vertebral Artery Origin Stent ??03/01/17 Comparison study: none History: The patient a 67 years -year-old Female. Who presents with R vertebral artery origin stenosis . She is here for catheter angiography to evaluate the exact degree of stenosis and for possible stent placement. Consumer Insights Specialist: Francheska Amezquita and Alissa Eubanks Vessels: Ultrasound guided access of ??radial artery Right common carotid artery angiogram: Cerebral and Cervical Left common carotid artery angiogram: Cerebral and Cervical Right ??subclavian artery angiogram: Cerebral and Cervical Left subclavian artery angiogram: Cerebral and Cervical Balloon mounted ??Resolut Integrity stent deployment within V1 segment Angiography through the existing catheter Right femoral artery angiogram Anesthesia: Local anesthesia with conscious sedation by Anesthesiology Procedural detail: The risks, benefits, and alternatives to procedure were discussed in detail with the patient and her family. These included but were not limited to the risk of blood loss, vessel injury, stroke, renal injury, and contrast allergy. The patient was brought to the biplane angiography suite where she underwent prep and drape procedures. ?? Limited ultrasound of the radial artery demonstrated a patent vessel. A quiroz scale image was documented. The right common radial artery was accessed using a micropuncture needle. The needle entry was documented. Following a series of exchanges, a 5 [employer] BountyHunter 1 catheter was navigated into the aortic arch. The catheter was used to select the left subclavian artery followed by the left subclavian artery and a cerebral angiogram was obtained. The catheter was returned to the arch and used to select the left common carotid artery and a cervical and cerebral angiogram were obtained. The catheter was returned to the arch and used to select the brachiocephalic artery followed by the right common carotid artery and a cervical and cerebral angiogram were obtained. The catheter was returned to the brachiocephalic artery and used to select the right subclavian artery and a cervical cerebral angiogram was obtained. The diagnostic ??catheter was removed from the arterial system and replaced by a [employer] Envoy guide catheter that was positioned proximal to the right vertebral artery origin. Through this catheter a Transcend Floppy 200cm microwire was inserted and used to cross the stenosis and positioned at the V2/3 junction. Over this wire a Resolute Integrity balloon-mounted, drug-eluting stent was positioned and inflated to nominal pressure. An angiogram through the existing catheter was then performed. The right femoral artery angiogram was obtained through the sheath. All catheters and sheaths were removed from the arterial system. Hemostasis was achieved using a 6 [place]ian Angio-Seal closure device. Hemostasis was immediate at the end of the closure procedure. The right dorsalis pedis pulse was palpable at the end of the closure procedure. The patient tolerated the procedure without immediate complications. She ?? was returned to the recovery area and hemodynamically stable condition neurologically unchanged. The estimated blood loss was less than 10 mL. Findings: There was good arterial, capillary, and venous opacification of all angiographic runs. The left subclavian artery angiogram reveals occlusion of the vertebral artery at its origin with reconstitution via muscular branches in the V2 segment The right subclavian artery angiogram reveals 70% stenosis of the the vertebral artery origin. The V3, V4, and vertebrobasilar junction that are normal in course and caliber. The left common carotid artery angiogram reveals 58% stenosis above the carotid bulb. The intracranial carotid shows a normal course and caliber the intracranial internal carotid artery. The middle cerebral artery and anterior cerebral artery are also normal in course and caliber as is the venous drainage. The right common carotid artery angiogram reveals a normal course and caliber the intracranial internal carotid artery. The middle cerebral artery and anterior cerebral artery are also normal in course and caliber as is the venous drainage. The angiogram through the existing catheter reveals revascularization of the V1 segment with no residual stenosis and no evidence of branch artery occlusion. Procedure Note Rocio Amezquita MD - 09/03/2017 Procedure: Cerebral angiogram and Vertebral Artery Origin Stent 03/01/17 Comparison study: none History: The patient a 67 years -year-old Female. Who presents with Rvertebral artery origin stenosis . She is here for catheter angiography toevaluate the exact degree of stenosis and for possible stent placement. Consumer Insights Specialist: Francheska Amezquita and Alissa Eubanks Vessels: Ultrasound guided access of radial artery Right common carotid artery angiogram: Cerebral and Cervical Left common carotid artery angiogram: Cerebral and Cervical Right subclavian artery angiogram: Cerebral and Cervical Left subclavian artery angiogram: Cerebral and Cervical Balloon mounted Resolut Integrity stent deployment within V1 segment Angiography through the existing catheter Right femoral artery angiogram Anesthesia: Local anesthesia with conscious sedation by Anesthesiology Procedural detail: The risks, benefits, and alternatives to procedure werediscussed in detail with the patient and her family. These included butwere not limited to the risk of blood loss, vessel injury, stroke, renalinjury, and contrast allergy. The patient was brought to the biplane angiography suite where she underwentprep and drape procedures. Limited ultrasound of the radial arterydemonstrated a patent vessel. A quiroz scale image was documented. The rightcommon radial artery was accessed using a micropuncture needle. The needle entry was documented. Following aseries of exchanges, a 5 B[place]ian Obrien 1 catheter was navigated into theaortic arch. The catheter was used to select the left subclavian arteryfollowed by the left subclavian artery and a cerebral angiogram was obtained. The catheter was returned tothe arch and used to select the left common carotid artery and a cervicaland cerebral angiogram were obtained. The catheter was returned to thearch and used to select the brachiocephalic artery followed by the right common carotid artery and acervical and cerebral angiogram were obtained. The catheter was returnedto the brachiocephalic artery and used to select the right subclavianartery and a cervical cerebral angiogram was obtained. The diagnostic catheter was removed from the arterial system and replacedby a [employer] Envoy guide catheter that was positioned proximal to the rightvertebral artery origin. Through this catheter a Transcend Floppy 200cmmicrowire was inserted and used to cross the stenosis and positioned at the V2/3 junction. Over this wire aResolute Integrity balloon-mounted, drug-eluting stent was positioned andinflated to nominal pressure. An angiogram through the existing catheterwas then performed. The right femoral artery angiogram was obtained through the sheath. All catheters and sheaths were removed from the arterial system.Hemostasis was achieved using a 6 [place] Angio-Seal closure device.Hemostasis was immediate at the end of the closure procedure. The rightdorsalis pedis pulse was palpable at the end of the closure procedure. The patient tolerated the procedure without immediate complications. Shewas returned to the recovery area and hemodynamically stable conditionneurologically unchanged. The estimated blood loss was less than 10 mL. Findings: There was good arterial, capillary, and venous opacification of allangiographic runs. The left subclavian artery angiogram reveals occlusion of the vertebralartery at its origin with reconstitution via muscular branches in the A6wuaknpb The right subclavian artery angiogram reveals 70% stenosis of the thevertebral artery origin. The V3, V4, and vertebrobasilar junction that arenormal in course and caliber. The left common carotid artery angiogram reveals 58% stenosis above thecarotid bulb. The intracranial carotid shows a normal course and caliberthe intracranial internal carotid artery. The middle cerebral artery andanterior cerebral artery are also normal in course and caliber as is the venous drainage. The right common carotid artery angiogram reveals a normal course andcaliber the intracranial internal carotid artery. The middle cerebralartery and anterior cerebral artery are also normal in course and caliberas is the venous drainage. The angiogram through the existing catheter reveals revascularization ofthe V1 segment with no residual stenosis and no evidence of branch arteryocclusion. IMPRESSION Impression: Success stent-assisting angioplasty of right V1 segment stenosis. This report was electronically signed by ROCIO AMEZQUITA M.D. on03/07/2017 2:51 PM . Rocio Amezquita MD IR ORDERABLES * ACT - POCT (IP) [facility] (2017 9:30 AM CDT) Activated Clotting Time 331 sec [facility] Blood specimen (specimen) 2017 9:30 AM CDT Rocio Amezquita MD LAB - POINT OF CARE ORDERABLES [facility] * PTT [facility] (2017 6:55 AM CDT) Only the most recent of2 resultswithin the time period is included. APTT 24.9 23.0 - 38.4 Seconds [facility] Comment:Suggested therapeuti c range for full dose I.V. heparin therapy for venous thromboembolism is 66.0-91.0 seconds. Blood specimen (specimen) BLOOD SPECIMEN / Unknown 2017 6:55 AM CDT 2017 6:58 AM CDT Narrative [facility] - 2017 7:12 AM CDT Is patient on Heparin, Argatroban or Dabigatran?->N Rocio Amezquita MD LAB - COAGULATION OR DERABLES Performing Organization Address City/[facility]/ZIP Co de Phone Number [address] [phone] * VAS CAROTID DUPLEX BILATERAL (12/17/2016 11:30 AM CDT) Only the most recent of8 resultswithin the time period is included. Anatomical Region Laterality Modality Other Rocio Amezquita MD VASCULAR LAB ORDERAB LES * CT ANGIO BRAIN AND NECK (10/09/2015 1:10 PM CDT) Only the most recent of2 resultswithin the time period is included. Anatomical Region Laterality Modality Head Other Impressions 10/09/2015 2:01 PM CDT IMPRESSION: 1. No acute intracranial hemorrhage. 2. Postsurgical changes of right carotid endarterectomy with patency of the right carotid bifurcation and cervical right internal carotid artery. Moderate partially calcified atherosclerosis of the left carotid bifurcation with up to 60 percent focal stenosis, grossly similar to the prior study. Intermittent visualization of the left vertebral artery likely secondary to atherosclerosis. 3. 1 mm focal outpouching of the left P1 segment of the post anterior cerebral artery may represent a small aneurysm, unchanged. This report was approved ??by Sukhjinder Arreaga ?? on 10/09/2015 1:49 PM . I, Dr. RAMAN PETERSON M.D. have personally reviewed and interpreted this examination/study. This report was electronically signed by RAMAN PETERSON M.D. ??on 10/09/2015 2:01 PM . Narrative 10/09/2015 2:01 PM CDT EXAMINATION: Computed tomography (CT) of the head and neck without and with contrast HISTORY: 65-year-old female with history of right carotid endarterectomy and atherosclerotic disease seen on the recent carotid ultrasound. TECHNIQUE: CT of the head was performed without contrast according to standard protocol. Then CT angiography of the head and neck was obtained after the uneventful administration of 50 mL Omnipaque 350 intravenous contrast. Three dimensional postprocessing was performed by the technologist and sent to the workstation for review. FINDINGS: Comparison is made to the prior head CT dated 01/11/2013 brain MRI and brain MR dated 03/08/2014. Non-angiographic findings: No acute intra- or extra-axial fluid collections are identified. There is mild cerebral volume loss with associated ex vacuo ventricular dilatation. The basilar cisterns are patent. No mass effect or midline shift is seen. The quiroz-white matter differentiation is normal. There is encephalomalacia in the right martínez radiata with extension into the anterior limb of the internal capsule. Periventricular white matter hypoattenuation is indicative of chronic small vessel ischemic disease. There is vascular calcification of the carotid siphons. The visualized portions of the orbits, paranasal sinuses, and mastoids appear normal. No acute fracture is identified. No soft tissue abnormalities are identified in the neck. There is an unchanged pulmonary nodule along the major fissure on the right which likely represents an intrafissural lymph node. There is mild multilevel degenerative disc disease in cervical spine. Angiographic findings: There is atherosclerotic disease of the aortic arch. The configuration of the brachiocephalic vessels is typical. There is atherosclerosis of the origin of the left subclavian artery without significant stenosis. ??There is mild atherosclerosis of the right common carotid artery without significant stenosis. Postsurgical changes of right carotid endarterectomy are present. The right carotid bifurcation is widely patent. The cervical right internal carotid artery is patent. There is mild atherosclerosis of the left common carotid artery. Moderate partially calcified atherosclerosis of the left common carotid bifurcation extending into the proximal left internal carotid artery causing approximately 60 percent focal stenosis 1.5 cm distal to the left carotid bifurcation. The cervical internal carotid artery distal to this region is widely patent. The right vertebral artery is dominant with mild atherosclerosis and up to mild stenosis. The left vertebral artery is intermittently visualized likely secondary to atherosclerosis, grossly unchanged. The distal internal carotid arteries demonstrate mild to moderate atherosclerosis in the cavernous segments without significant stenosis. The anterior and middle cerebral arteries appear normal. The distal vertebral arteries appear normal. The basilar artery and right posterior cerebral arteries appear normal. There is a tiny outpouching extending from the left P1 segment (series 21, image 205) which measures approximately 1 mm, unchanged. No aneurysms, vascular occlusions, or intracranial stenoses are identified. Procedure Note Raman Peterson MD - 09/04/2017 EXAMINATION: Computed tomography (CT) of the head and neck without andwith contrast HISTORY: 65-year-old female with history of right carotid endarterectomyand atherosclerotic disease seen on the recent carotid ultrasound. TECHNIQUE: CT of the head was performed without contrast according tostandard protocol. Then CT angiography of the head and neck was obtainedafter the uneventful administration of 50 mL Omnipaque 350 intravenouscontrast. Three dimensional postprocessing was performed by the technologist and sent to theworkstation for review. FINDINGS: Comparison is made to the prior head CT dated 01/11/2013 brain MRIand brain MR dated 03/08/2014. Non-angiographic findings: No acute intra- or extra-axial fluid collections are identified. There ismild cerebral volume loss with associated ex vacuo ventricular dilatation.The basilar cisterns are patent. No mass effect or midline shift is seen.The quiroz-white matter differentiation is normal. There is encephalomalacia in the right coronaradiata with extension into the anterior limb of the internal capsule.Periventricular white matter hypoattenuation is indicative of chronicsmall vessel ischemic disease. There is vascular calcification of the carotid siphons. The visualized portions ofthe orbits, paranasal sinuses, and mastoids appear normal. No acutefracture is identified. No soft tissue abnormalities are identified in the neck. There is anunchanged pulmonary nodule along the major fissure on the right whichlikely represents an intrafissural lymph node. There is mild multileveldegenerative disc disease in cervical spine. Angiographic findings: There is atherosclerotic disease of the aortic arch. The configuration ofthe brachiocephalic vessels is typical. There is atherosclerosis of theorigin of the left subclavian artery without significant stenosis. Thereis mild atherosclerosis of the right common carotid artery without significant stenosis. Postsurgicalchanges of right carotid endarterectomy are present. The right carotidbifurcation is widely patent. The cervical right internal carotid arteryis patent. There is mild atherosclerosis of the left common carotid artery. Moderate partiallycalcified atherosclerosis of the left common carotid bifurcation extendinginto the proximal left internal carotid artery causing approximately 60percent focal stenosis 1.5 cm distal to the left carotid bifurcation. The cervical internal carotid arterydistal to this region is widely patent. The right vertebral artery isdominant with mild atherosclerosis and up to mild stenosis. The leftvertebral artery is intermittently visualized likely secondary to atherosclerosis, grossly unchanged. The distal internal carotid arteries demonstrate mild to moderateatherosclerosis in the cavernous segments without significant stenosis.The anterior and middle cerebral arteries appear normal. The distalvertebral arteries appear normal. The basilar artery and right posterior cerebral arteries appear normal. There is atiny outpouching extending from the left P1 segment (series 21, image 205)which measures approximately 1 mm, unchanged. No aneurysms, vascularocclusions, or intracranial stenoses are identified. IMPRESSION IMPRESSION: 1. No acute intracranial hemorrhage. 2. Postsurgical changes of right carotid endarterectomy with patency ofthe right carotid bifurcation and cervical right internal carotid artery.Moderate partially calcified atherosclerosis of the left carotidbifurcation with up to 60 percent focal stenosis, grossly similar to the prior study. Intermittent visualizationof the left vertebral artery likely secondary to atherosclerosis. 3. 1 mm focal outpouching of the left P1 segment of the post anteriorcerebral artery may represent a small aneurysm, unchanged. This report was approved by Sukhjinder Arreaga on 10/09/2015 1:49 PM . IDr. RAMAN M.D. have personally reviewed and interpreted thisexamination/study. This report was electronically signed by RAMAN PETERSON M.D. on 10/09/20152:01 PM . Olaf Valentino MD CT ORDERABLES * (ABNORMAL) CREATININE BLOOD - POCT (IP) [facility] (10/09/2015) Only the most recent of2 resultswithin the time period is included. Creatinine POCT 1.05 0.3 - 1.3 mg/dL [facility] eGFR POCT 56(A) 60 ml/min [facility] 10/09/2015 Olaf Valentino MD LAB - POINT OF CARE ORDERABLES [facility] * MRI ANGIO BRAIN ARTERIAL WO CONT (03/08/2014 3:55 PM CDT) Anatomical Region Laterality Modality Head Other Impressions 03/08/2014 4:18 PM CDT IMPRESSION: 1. No acute infarction. Chronic infarction involving the right putamen and caudate with evidence of blood products in this region. 2. Focal area of moderate to severe stenosis involving the proximal left internal carotid artery. No hemodynamically significant stenosis on the right. 3. Intermittent visualization of the left vertebral artery throughout its course, possibly secondary to atherosclerosis and/or partial occlusion. 4. No evidence of aneurysm, vascular malformation, or intracranial hemodynamically significant stenosis. This report was approved ??by Gigi Naik M.D. ?? on 03/08/2014 4:[address] RAMAN Blanchard M.D. have personally reviewed and interpreted this examination/study. This report was electronically signed by RAMAN PETERSON M.D. ??on 03/08/2014 4:18 PM . Narrative 03/08/2014 4:18 PM CDT EXAMINATION: 1. Magnetic resonance imaging (MRI) of the brain without and with contrast 2. Magnetic resonance angiography (MRA) of the head without contrast 3. MRA of the neck with contrast HISTORY: 64-year-old female with history of stroke, presenting with lightheadedness, falls and headache TECHNIQUE: MRI of the brain was performed prior to and following the uneventful administration of 8 mL Gadavist intravenous gadolinium contrast according to standard protocol. MRA of the lrqofp-ta-Sudzfn was performed using a umck-ls-npttbg technique without contrast. Finally, contrast-enhanced MRA of the neck was performed following the uneventful administration of 8 mL Gadavist intravenous gadolinium contrast. FINDINGS: Comparison is made with MRI brain 01/11/2013. Brain: No evidence of acute hemorrhage is identified. No evidence of acute cerebral infarction is seen. There has been interval evolution of the previously seen right caudate and putaminal infarct which is now chronic. Punctate T1 hyperintensity within this lesion likely represents blood products. Susceptibility artifact is also present within this prior infarction consistent with blood products. There is mild ex vacuo dilatation of the right lateral ventricle. No mass effect or midline shift is seen. No enhancing lesions are identified. The corpus callosum and sella appear normal. The posterior fossa, brainstem, and craniocervical junction appear normal. The visualized portions of the orbits, paranasal sinuses, and mastoids appear normal. Normal flow voids are demonstrated in the carotid arteries and basilar artery. The calvarium and visualized cervical spine appear normal. Angiographic findings: The visualized aortic arch appears normal. The configuration of the brachiocephalic vessels is typical. The innominate artery and both subclavian arteries appear normal. The common carotid arteries and right carotid bifurcation appear normal. There is a focal area of moderate to severe stenosis of the proximal left internal carotid artery, approximately 1.2 cm distal to the left carotid bifurcation, extending for approximately 3 mm in craniocaudal dimension. The cervical internal carotid arteries appear normal. The left vertebral artery is only intermittently visualized throughout its course, possibly secondary to atherosclerosis and/or partial occlusion. 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 The anterior and middle cerebral arteries appear normal. The distal vertebral arteries appear normal. The basilar artery and posterior cerebral arteries appear normal. No aneurysms or intracranial stenoses are identified. Procedure Note Raman Peterson MD - 09/04/2017 EXAMINATION: 1. Magnetic resonance imaging (MRI) of the brain without and withcontrast 2. Magnetic resonance angiography (MRA) of the head without contrast 3. MRA of the neck with contrast HISTORY: 64-year-old female with history of stroke, presenting withlightheadedness, falls and headache TECHNIQUE: MRI of the brain was performed prior to and following theuneventful administration of 8 mL Gadavist intravenous gadolinium contrastaccording to standard protocol. MRA of the azgish-yb-Aemnwk was performedusing a okmb-mk-cinxru technique without contrast. Finally, contrast-enhanced MRA of the neck was performedfollowing the uneventful administration of 8 mL Gadavist intravenousgadolinium contrast. FINDINGS: Comparison is made with MRI brain 01/11/2013. Brain: No evidence of acute hemorrhage is identified. No evidence of acutecerebral infarction is seen. There has been interval evolution of thepreviously seen right caudate and putaminal infarct which is now chronic.Punctate T1 hyperintensity within this lesion likely represents blood products. Susceptibility artifact is alsopresent within this prior infarction consistent with blood products. Thereis mild ex vacuo dilatation of the right lateral ventricle. No mass effector midline shift is seen. No enhancing lesions are identified. The corpus callosum and sella appearnormal. The posterior fossa, brainstem, and craniocervical junction appearnormal. The visualized portions of the orbits, paranasal sinuses, and mastoidsappear normal. Normal flow voids are demonstrated in the carotid arteriesand basilar artery. The calvarium and visualized cervical spine appearnormal. Angiographic findings: The visualized aortic arch appears normal. The configuration of thebrachiocephalic vessels is typical. The innominate artery and bothsubclavian arteries appear normal. The common carotid arteries and rightcarotid bifurcation appear normal. There is a focal area of moderate to severe stenosis of the proximal left internalcarotid artery, approximately 1.2 cm distal to the left carotidbifurcation, extending for approximately 3 mm in craniocaudal dimension.The cervical internal carotid arteries appear normal. The left vertebral artery is only intermittently visualizedthroughout its course, possibly secondary to atherosclerosis and/orpartial occlusion. 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 The anterior and middle cerebralarteries appear normal. The distal vertebral arteries appear normal. Thebasilar artery and posterior cerebral arteries appear normal. No aneurysms or intracranial stenoses areidentified. IMPRESSION IMPRESSION: 1. No acute infarction. Chronic infarction involving the right putamen andcaudate with evidence of blood products in this region. 2. Focal area of moderate to severe stenosis involving the proximal leftinternal carotid artery. No hemodynamically significant stenosis on theright. 3. Intermittent visualization of the left vertebral artery throughout itscourse, possibly secondary to atherosclerosis and/or partial occlusion. 4. No evidence of aneurysm, vascular malformation, or intracranialhemodynamically significant stenosis. This report was approved by Gigi Naik M.D. on 03/08/2014 4:09PM . Dr. RAMAN Blanchard M.D. have personally reviewed and interpreted thisexamination/study. This report was electronically signed by RAMAN PETERSON M.D. on 03/08/20144:18 PM . Historical Provider MR ORDERABLES * MRI ANGIO NECK W CONTRAST (03/08/2014 3:54 PM CDT) Anatomical Region Laterality Modality Head Other Impressions 03/08/2014 4:18 PM CDT IMPRESSION: 1. No acute infarction. Chronic infarction involving the right putamen and caudate with evidence of blood products in this region. 2. Focal area of moderate to severe stenosis involving the proximal left internal carotid artery. No hemodynamically significant stenosis on the right. 3. Intermittent visualization of the left vertebral artery throughout its course, possibly secondary to atherosclerosis and/or partial occlusion. 4. No evidence of aneurysm, vascular malformation, or intracranial hemodynamically significant stenosis. This report was approved ??by Gigi Naik M.D. ?? on 03/08/2014 4:09 PM . Lo, Dr. RAMAN PETERSON M.D. have personally reviewed and interpreted this examination/study. This report was electronically signed by RAMAN PETERSON M.D. ??on 03/08/2014 4:18 PM . Narrative 03/08/2014 4:18 PM CDT EXAMINATION: 1. Magnetic resonance imaging (MRI) of the brain without and with contrast 2. Magnetic resonance angiography (MRA) of the head without contrast 3. MRA of the neck with contrast HISTORY: 64-year-old female with history of stroke, presenting with lightheadedness, falls and headache TECHNIQUE: MRI of the brain was performed prior to and following the uneventful administration of 8 mL Gadavist intravenous gadolinium contrast according to standard protocol. MRA of the kepipq-ts-Iketae was performed using a gjqk-za-iyrdln technique without contrast. Finally, contrast-enhanced MRA of the neck was performed following the uneventful administration of 8 mL Gadavist intravenous gadolinium contrast. FINDINGS: Comparison is made with MRI brain 01/11/2013. Brain: No evidence of acute hemorrhage is identified. No evidence of acute cerebral infarction is seen. There has been interval evolution of the previously seen right caudate and putaminal infarct which is now chronic. Punctate T1 hyperintensity within this lesion likely represents blood products. Susceptibility artifact is also present within this prior infarction consistent with blood products. There is mild ex vacuo dilatation of the right lateral ventricle. No mass effect or midline shift is seen. No enhancing lesions are identified. The corpus callosum and sella appear normal. The posterior fossa, brainstem, and craniocervical junction appear normal. The visualized portions of the orbits, paranasal sinuses, and mastoids appear normal. Normal flow voids are demonstrated in the carotid arteries and basilar artery. The calvarium and visualized cervical spine appear normal. Angiographic findings: The visualized aortic arch appears normal. The configuration of the brachiocephalic vessels is typical. The innominate artery and both subclavian arteries appear normal. The common carotid arteries and right carotid bifurcation appear normal. There is a focal area of moderate to severe stenosis of the proximal left internal carotid artery, approximately 1.2 cm distal to the left carotid bifurcation, extending for approximately 3 mm in craniocaudal dimension. The cervical internal carotid arteries appear normal. The left vertebral artery is only intermittently visualized throughout its course, possibly secondary to atherosclerosis and/or partial occlusion. 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 The anterior and middle cerebral arteries appear normal. The distal vertebral arteries appear normal. The basilar artery and posterior cerebral arteries appear normal. No aneurysms or intracranial stenoses are identified. Procedure Note Raman Peterson MD - 09/04/2017 EXAMINATION: 1. Magnetic resonance imaging (MRI) of the brain without and withcontrast 2. Magnetic resonance angiography (MRA) of the head without contrast 3. MRA of the neck with contrast HISTORY: 64-year-old female with history of stroke, presenting withlightheadedness, falls and headache TECHNIQUE: MRI of the brain was performed prior to and following theuneventful administration of 8 mL Gadavist intravenous gadolinium contrastaccording to standard protocol. MRA of the rylegh-oq-Whjlst was performedusing a vatl-wj-fljpxi technique without contrast. Finally, contrast-enhanced MRA of the neck was performedfollowing the uneventful administration of 8 mL Gadavist intravenousgadolinium contrast. FINDINGS: Comparison is made with MRI brain 01/11/2013. Brain: No evidence of acute hemorrhage is identified. No evidence of acutecerebral infarction is seen. There has been interval evolution of thepreviously seen right caudate and putaminal infarct which is now chronic.Punctate T1 hyperintensity within this lesion likely represents blood products. Susceptibility artifact is alsopresent within this prior infarction consistent with blood products. Thereis mild ex vacuo dilatation of the right lateral ventricle. No mass effector midline shift is seen. No enhancing lesions are identified. The corpus callosum and sella appearnormal. The posterior fossa, brainstem, and craniocervical junction appearnormal. The visualized portions of the orbits, paranasal sinuses, and mastoidsappear normal. Normal flow voids are demonstrated in the carotid arteriesand basilar artery. The calvarium and visualized cervical spine appearnormal. Angiographic findings: The visualized aortic arch appears normal. The configuration of thebrachiocephalic vessels is typical. The innominate artery and bothsubclavian arteries appear normal. The common carotid arteries and rightcarotid bifurcation appear normal. There is a focal area of moderate to severe stenosis of the proximal left internalcarotid artery, approximately 1.2 cm distal to the left carotidbifurcation, extending for approximately 3 mm in craniocaudal dimension.The cervical internal carotid arteries appear normal. The left vertebral artery is only intermittently visualizedthroughout its course, possibly secondary to atherosclerosis and/orpartial occlusion. 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 The anterior and middle cerebralarteries appear normal. The distal vertebral arteries appear normal. Thebasilar artery and posterior cerebral arteries appear normal. No aneurysms or intracranial stenoses areidentified. IMPRESSION IMPRESSION: 1. No acute infarction. Chronic infarction involving the right putamen andcaudate with evidence of blood products in this region. 2. Focal area of moderate to severe stenosis involving the proximal leftinternal carotid artery. No hemodynamically significant stenosis on theright. 3. Intermittent visualization of the left vertebral artery throughout itscourse, possibly secondary to atherosclerosis and/or partial occlusion. 4. No evidence of aneurysm, vascular malformation, or intracranialhemodynamically significant stenosis. This report was approved by Gigi Naik M.D. on 03/08/2014 4:09PM . Lo, Dr. RAMAN PETERSON M.D. have personally reviewed and interpreted thisexamination/study. This report was electronically signed by RAMAN PETERSON M.D. on 03/08/20144:18 PM . Historical Provider MR ORDERABLES * MRI BRAIN WWO CONTRAST (03/08/2014 3:53 PM CDT) Anatomical Region Laterality Modality Head Other Impressions 03/08/2014 4:18 PM CDT IMPRESSION: 1. No acute infarction. Chronic infarction involving the right putamen and caudate with evidence of blood products in this region. 2. Focal area of moderate to severe stenosis involving the proximal left internal carotid artery. No hemodynamically significant stenosis on the right. 3. Intermittent visualization of the left vertebral artery throughout its course, possibly secondary to atherosclerosis and/or partial occlusion. 4. No evidence of aneurysm, vascular malformation, or intracranial hemodynamically significant stenosis. This report was approved ??by Gigi Naik M.D. ?? on 03/08/2014 4:[address] RAMAN Blanchard M.D. have personally reviewed and interpreted this examination/study. This report was electronically signed by RAMAN PETERSON M.D. ??on 03/08/2014 4:18 PM . Narrative 03/08/2014 4:18 PM CDT EXAMINATION: 1. Magnetic resonance imaging (MRI) of the brain without and with contrast 2. Magnetic resonance angiography (MRA) of the head without contrast 3. MRA of the neck with contrast HISTORY: 64-year-old female with history of stroke, presenting with lightheadedness, falls and headache TECHNIQUE: MRI of the brain was performed prior to and following the uneventful administration of 8 mL Gadavist intravenous gadolinium contrast according to standard protocol. MRA of the nbtyxg-fr-Ozaixy was performed using a hjeh-jw-cwhmcl technique without contrast. Finally, contrast-enhanced MRA of the neck was performed following the uneventful administration of 8 mL Gadavist intravenous gadolinium contrast. FINDINGS: Comparison is made with MRI brain 01/11/2013. Brain: No evidence of acute hemorrhage is identified. No evidence of acute cerebral infarction is seen. There has been interval evolution of the previously seen right caudate and putaminal infarct which is now chronic. Punctate T1 hyperintensity within this lesion likely represents blood products. Susceptibility artifact is also present within this prior infarction consistent with blood products. There is mild ex vacuo dilatation of the right lateral ventricle. No mass effect or midline shift is seen. No enhancing lesions are identified. The corpus callosum and sella appear normal. The posterior fossa, brainstem, and craniocervical junction appear normal. The visualized portions of the orbits, paranasal sinuses, and mastoids appear normal. Normal flow voids are demonstrated in the carotid arteries and basilar artery. The calvarium and visualized cervical spine appear normal. Angiographic findings: The visualized aortic arch appears normal. The configuration of the brachiocephalic vessels is typical. The innominate artery and both subclavian arteries appear normal. The common carotid arteries and right carotid bifurcation appear normal. There is a focal area of moderate to severe stenosis of the proximal left internal carotid artery, approximately 1.2 cm distal to the left carotid bifurcation, extending for approximately 3 mm in craniocaudal dimension. The cervical internal carotid arteries appear normal. The left vertebral artery is only intermittently visualized throughout its course, possibly secondary to atherosclerosis and/or partial occlusion. 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 The anterior and middle cerebral arteries appear normal. The distal vertebral arteries appear normal. The basilar artery and posterior cerebral arteries appear normal. No aneurysms or intracranial stenoses are identified. Procedure Note Raman Peterson MD - 09/04/2017 EXAMINATION: 1. Magnetic resonance imaging (MRI) of the brain without and withcontrast 2. Magnetic resonance angiography (MRA) of the head without contrast 3. MRA of the neck with contrast HISTORY: 64-year-old female with history of stroke, presenting withlightheadedness, falls and headache TECHNIQUE: MRI of the brain was performed prior to and following theuneventful administration of 8 mL Gadavist intravenous gadolinium contrastaccording to standard protocol. MRA of the ajszfv-gn-Iacbon was performedusing a vzkt-gl-ghaywd technique without contrast. Finally, contrast-enhanced MRA of the neck was performedfollowing the uneventful administration of 8 mL Gadavist intravenousgadolinium contrast. FINDINGS: Comparison is made with MRI brain 01/11/2013. Brain: No evidence of acute hemorrhage is identified. No evidence of acutecerebral infarction is seen. There has been interval evolution of thepreviously seen right caudate and putaminal infarct which is now chronic.Punctate T1 hyperintensity within this lesion likely represents blood products. Susceptibility artifact is alsopresent within this prior infarction consistent with blood products. Thereis mild ex vacuo dilatation of the right lateral ventricle. No mass effector midline shift is seen. No enhancing lesions are identified. The corpus callosum and sella appearnormal. The posterior fossa, brainstem, and craniocervical junction appearnormal. The visualized portions of the orbits, paranasal sinuses, and mastoidsappear normal. Normal flow voids are demonstrated in the carotid arteriesand basilar artery. The calvarium and visualized cervical spine appearnormal. Angiographic findings: The visualized aortic arch appears normal. The configuration of thebrachiocephalic vessels is typical. The innominate artery and bothsubclavian arteries appear normal. The common carotid arteries and rightcarotid bifurcation appear normal. There is a focal area of moderate to severe stenosis of the proximal left internalcarotid artery, approximately 1.2 cm distal to the left carotidbifurcation, extending for approximately 3 mm in craniocaudal dimension.The cervical internal carotid arteries appear normal. The left vertebral artery is only intermittently visualizedthroughout its course, possibly secondary to atherosclerosis and/orpartial occlusion. 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 The anterior and middle cerebralarteries appear normal. The distal vertebral arteries appear normal. Thebasilar artery and posterior cerebral arteries appear normal. No aneurysms or intracranial stenoses areidentified. IMPRESSION IMPRESSION: 1. No acute infarction. Chronic infarction involving the right putamen andcaudate with evidence of blood products in this region. 2. Focal area of moderate to severe stenosis involving the proximal leftinternal carotid artery. No hemodynamically significant stenosis on theright. 3. Intermittent visualization of the left vertebral artery throughout itscourse, possibly secondary to atherosclerosis and/or partial occlusion. 4. No evidence of aneurysm, vascular malformation, or intracranialhemodynamically significant stenosis. This report was approved by Gigi Naik M.D. on 03/08/2014 4:09PM . I, Dr. RAMAN PETERSON M.D. have personally reviewed and interpreted thisexamination/study. This report was electronically signed by RAMAN PETERSON M.D. on 03/08/20144:18 PM . 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 Ionized Calcium Whole Blood 1.17 MMOL/L [facility] Whole Blood PH 7.38 7.35 - 7.45 [facility] Adjusted Ionized Calcium 1.16(L) 1.19 - 1.34 mmol/L [facility] 02/05/2013 1:14 AM CDT 02/05/2013 1:10 AM CDT Olaf Valentino MD LAB - CHEMISTRY [facility] [address] [phone] * (ABNORMAL) ANTITHROMBIN III ACTIVITY (02/03/2013 12:12 PM CDT) AT ACT 230(H) 105 - 167 SECONDS [facility] Comment: PERFORMED BY: LILIANA MITCHELL Therapeutic range for Cardiac labor conciliator is: ? 200 - 300 seconds ? line pull ACT < 170 seconds ? Therapeutic range for EPS lab is: ? 200 - 240 seconds ? rebolus at < 160 seconds for procedure ? line pull ACT < 140 seconds ? Therapeutic range for CT/Angio Special Procedures is: ? 200 - 300 seconds ? line pull ACT < 200 seconds [facility] in [place]: ? ACT > 360-999 seconds Patient on Aprotinin ACT > 450-999 seconds 02/03/2013 12:1 2 PM CDT 02/08/2013 12:43 PM CDT Olaf Valentino MD LAB - COAGULATION OR DERABLES Performing Organization Address [facility] Co de Phone Number [address] [phone] * (ABNORMAL) URINALYSIS W/MICROSCOPIC NO CULTURE (02/03/2013 12:00 PM CDT) Color UA YELLOW STRW,YELLOW [facility] Clarity UA CLEAR CLEAR [facility] Specific [place] Urine 1.017 1.001 - 1.030 [facility] pH UA <= 5.0 5.0 - 8.0 [facility] Protein UA NEGATIVE <20 mg/dL [facility] Glucose UA NEGATIVE NEGATIVE mg/dL [facility] Ketones NEGATIVE NEGATIVE mg/dL [facility] Bilirubin UA NEGATIVE NEGATIVE mg/dL [facility] Blood UA NEGATIVE NEGATIVE [facility] Nitrite UA NEGATIVE NEGATIVE [facility] Leukocyte Esterase NEGATIVE NEGATIVE [facility] Urobilinogen UA < 2.0 <2.0 mg/dL [facility] RBC Urine < 1 0 - 8 /HPF [facility] WBC Urine 1 0 - 2 /HPF [facility] Squamous Epithelial Cells UA < 1 0 - 1 /HPF [facility] Mucus Urine RARE(A) NONE SEEN /LPF [facility] Urine specimen (specimen) URINE SPECIMEN COLLECTION, CATHETERIZED / Unknown 02/03/2013 12:00 PM CDT 02/03/2013 12:10 PM CDT Olaf Valentino MD LAB - URINALYSIS ORD ERABLES Performing Organization Address [facility] Co de Phone Number [address] [phone] * CULTURE URINE (02/03/2013 12:00 PM CDT) Culture Urine NO GROWTH OF >100 CFU/ML AFTER 48 HOURS. [facility] Urine specimen (specimen) URINE SPECIMEN COLLECTION, CATHETERIZED / Unknown 02/03/2013 12:00 PM CDT 02/03/2013 12:10 PM CDT Narrative [facility] - 02/05/2013 2:59 PM CDT Specimen Type->Urine Olaf Valentino MD LAB - MICROBIOLOGY O RDERABLES Performing Organization Address [facility] Co de Phone Number [address] [phone] * TYPE + SCREEN PANEL (02/03/2013 9:05 AM CDT) Interpretation ABO/Rh Patient A POS [facility] Antibody Screen NEGATIVE [facility] Venous blood specimen (specimen) 02/03/2013 9:05 AM CDT 02/03/2013 9:11 AM CDT Olaf Valentino MD LAB - BLOOD BANK ORD ERABLES Performing Organization Address [facility] Co de Phone Number [address] [phone] * EKG 12-LEAD (01/20/2013 7:41 AM CDT) Narrative [facility] - 01/20/2013 7:41 AM CDT Procedure Note Provider, MD Alexander - 11/12/2017 Heike Tavera MD ECG ORDERABLES Performing Organization Address [facility] Co de Phone Number [facility] * TROPONIN I (01/12/2013 4:46 PM CDT) Only the most recent of4 resultswithin the time period is included. Troponin I < 0.010 <0.032 ng/mL [facility] Comment: ? NOTE Any condition resulting in myocardial cell damage can potentially increase cardiac troponin-I levels. Published studies have documented that these conditions include, but are not limited to, angina, unstable angina, congestive heart failure, myocarditis, cardiac surgery, or invasive testing and non-cardiac related causes such as pulmonary embolism, renal failure, and sepsis. 6-8 hours are required for cardiac troponin I to increase after onset of chest pain. ??Troponin values generally remain elevated for 5-10 days. 01/12/2013 4:46 PM CDT 01/12/2013 4:58 PM CDT Arturo Ernst MD LAB - CHEMISTRY JASON SANCHEZ [facility] Organization Address City/State/ZIP Co de Phone Number [address] [phone] * CK + CKMB PANEL (01/12/2013 4:46 PM CDT) Only the most recent of4 resultswithin the time period is included. CK Total 81 30 - 200 Units/L [facility] CK-MB 1.4 0.0 - 6.6 ng/mL [facility] Comment: ? CKMB Reference Range 6.6 ng/mL or greater = Positive For indeterminate results, additional specimen(s) for CKMB, drawn at least one hour apart, may aid diagnosis. Positive CKMB results should be clinically interpreted in combination with total CK serum level. ??In patients without cardiac muscle damage, CKMB (ng/mL) is generally <2.5% of total CK enzyme activity (Units/L). Virtually all patients with acute myocardial infarction have CKMB values 6.6 ng/mL or greater for samples drawn at least 8-12 hours after the onset of chest pain. ??CKMB values generally remain elevated for 2-3 days. 01/12/2013 4:46 PM CDT 01/12/2013 4:58 PM CDT Arturo Ernst MD LAB - CHEMISTRY JASON SANCHEZ Performing Organization Address [facility] Co de Phone Number [address] [phone] * C-REACTIVE PROTEIN (01/12/2013 3:44 AM CDT) Pathologist [facility] C-Reactive Protein < 0.5 <or= 0.5 mg/dL [facility] Venous blood specimen (specimen) 01/12/2013 3:44 AM CDT 01/12/2013 4:32 AM CDT Arturo Ernst MD LAB - CHEMISTRY JASON SANCHEZ Performing Organization Address [facility] de Phone Number [address] [phone] * B-TYPE NATRIURETIC PEPTIDE (01/12/2013 3:44 AM CDT) [facility] BNP 77 SEE COMMENT pg/mL [facility] Comment: A decision threshold of 100 pg/mL has been demonstrated to provide the maximal combination of sensitivity, specificity and predictive value for the diagnosis of congestive heart failure (CHF). ??Virtually all patients with no evidence of CHF have BNP values less than 100 pg/mL. ??A BNP value greater than 100 pg/mL is consistent with the diagnosis of CHF in the appropriate clinical setting. ??In a study of 693 patients (male and female) with diagnosed CHF, the following values were determined based on the NYHA functional classification system. ?NYHA ?Mean Value ? % >100pg/mL Functional Class ?(pg/mL) ? I ? 320 ?58.1 ? II ?432 ?73.0 ? III ? 656 ?79.0 ? IV ? 1635 ?98.3 01/12/2013 3:44 AM CDT 01/12/2013 4:32 AM CDT Arturo Ernst MD LAB - CHEMISTRY JASON SANCHEZ Performing Organization Address [facility] Co de Phone Number [address] [phone] * (ABNORMAL) HEMOGLOBIN A1C (01/12/2013 2:30 AM CDT) Hemoglobin A1c 7.1(H) 4.4 - 6.3 % [facility] Estimated Average Glucose 157 mg/dL [facility] Blood specimen (specimen) 01/12/2013 2:30 AM CDT 01/12/2013 2:55 AM CDT Arturo Ernst MD LAB - CHEMISTRY JASON SANCHEZ Performing Organization Address [facility] de Phone Number [address] [phone] * (ABNORMAL) LIPID PROFILE (01/12/2013 2:30 AM CDT) Cholesterol Total 167 <200 mg/dL [facility] HDL 33(L) > OR = 40 mg/dL [facility] Comment: ATP III classification of HDL cholesterol: <40 mg/dL Low; considered a major risk factor >60 mg/dL High; considered a negative risk factor Triglycerides 228(H) <150 mg/dL [facility] Comment: ATP III classification of Triglycerides: < 150 mg/dL ??Normal triglycerides 150-199 mg/dL Borderline-high triglycerides 200-400 mg/dL High triglycerides > 500 mg/dL ??Very high triglycerides LDL Calculated 88 0 - 100 mg/dL [facility] Comment: ATP III classification of LDL cholesterol: <100 mg/dL ??Optimal 100-129 Near optimal/above optimal 130-159 Borderline high 160-189 High >190 ?? Very high Venous blood specimen (specimen) 01/12/2013 2:30 AM CDT 01/12/2013 2:55 AM CDT Arturo Ernst MD LAB - CHEMISTRY ORDRachael SANCHEZ Performing Organization Address [facility] Co de Phone Number [address] [phone] * URINALYSIS REFLEX TO MICROSCOPIC NO CULTURE (01/11/2013 6:30 PM CDT) Color UA YELLOW STRW,YELLOW [facility] Clarity UA CLEAR CLEAR [facility] Specific [place] Urine 1.012 1.001 - 1.030 [facility] pH UA 6.5 5.0 - 8.0 [facility] Protein UA NEGATIVE <20 mg/dL [facility] Glucose UA NEGATIVE NEGATIVE mg/dL [facility] Ketones NEGATIVE NEGATIVE mg/dL [facility] Bilirubin UA NEGATIVE NEGATIVE mg/dL [facility] Blood UA NEGATIVE NEGATIVE [facility] Nitrite UA NEGATIVE NEGATIVE [facility] Leukocyte Esterase NEGATIVE NEGATIVE [facility] Urobilinogen UA < 2.0 <2.0 mg/dL [facility] UA Micro Reflex NO [facility] Urine specimen (specimen) URINE SPECIMEN OBTAINED BY CLEAN CATCH PROCEDURE / Unknown 01/11/2013 6:30 PM CDT 01/11/2013 7:04 PM CDT Heike Tavera MD LAB - URINALYSIS ORD ERABLES Performing Organization Address City/[facility]/ZIP Co de Phone Number [address] [phone] * XR CHEST 1VW PORTABLE (01/11/2013 5:19 PM CDT) Anatomical Region Laterality Modality Chest Other Impressions 01/12/2013 7:40 AM CDT Impression: No acute pulmonary process. Report dictated by Gigi Naik MD. This report was approved ??by Gigi Naik M.D. ?? on 01/12/2013 7:[address] Antwan Blanchard M.D. have personally reviewed and interpreted this examination/study. This report was electronically signed by Antwan Ahuja M.D. ??on 01/12/2013 7:40 AM . Narrative 01/12/2013 7:40 AM CDT Exam: Portable AP Chest Comparison: None History: Stroke, altered metal status Findings: The lungs are clear. ??No pleural effusion or pneumothorax is present. ??The cardiac silhouette and mediastinal contours are normal. Thoracic spine scoliosis and degenerative spurs are present. Procedure Note Antwan Ahuja MD - 09/05/2017 Exam: Portable AP Chest Comparison: None History: Stroke, altered metal status Findings: The lungs are clear. No pleural effusion or pneumothorax is present. Thecardiac silhouette and mediastinal contours are normal. Thoracic spinescoliosis and degenerative spurs are present. IMPRESSION Impression: No acute pulmonary process. Report dictated by Gigi Naik MD. This report was approved by Gigi Naik M.D. on 01/12/2013 7:01AM . Dr. Antwan Blanchard M.D. have personally reviewed and interpreted thisexamination/study. This report was electronically signed by Antwan Ahuja M.D. on 01/12/20137:40 AM . Heike Tavera MD DIAGNOSTIC IMAGING O RDERABLES * ECHO W DOPPLER AND COLOR FLOW (01/11/2013 12:00 AM CDT) Anatomical Region Laterality Modality Other 01/11/2013 Arturo Ernst MD ECHOCARDIOGRAPHY RAD IANT Care Teams Char House Supervisor Relationship Specialty Start Date End Date Júnior Puente MD [address] [place] [address] PCP - General 03/02/14
--- OUTSIDE RECORDS SUMMARY | 2024-07-07 11:43 | XMS_ITS | Clinical Summary ---
Author Organization [facility] [address] Address [address] [place] [address] Care Team Providers Care Prize Coordinator Name Role Phone Jad Fisher MD Primary Care Provider [phone] Chang Ward MD Unavailable [phone] Allergies Active Allergy Reactions Criticality Noted Date [...] Active Droplet Pen Needle 31 gauge x 08/20 needle 08/18/19 23 Active pen needle, diabetic (BD Ultra-Fine Mini Pen Needle) 31 gauge x 08/20 needle USE TO TAKE INSULIN 4 X [...] 04/12/2024 Assessment & Plan (04/12/2024 11:22 AM [employer]IP[employer]): Started on Fosamax. Continue taking vitamin D. [...] surgery. Updated referral and reached out to [facility] orthopedic surgery Dr. Ward, plan for office [...] Rosuvastatin 40mg. Last lipid panel: 02/19/23 LDL=73, WD=745. No changes at this time. Assessment & Plan (08/12/2023 11:01 AM [employer] STRIPPER): Chronic, stable LDL cholesterol goal Continue rosuvastatin Assessment & Plan (05/04/2023 10:39 AM [employer] STRIPPER): Chronic problem, currently taking Rosuvastatin 40mg. Last lipid panel: 02/19/23 LDL=73, NT=852. No changes at this time. Assessment & Plan (01/19/2023 10:03 AM CDT): Chronic, well controlled Continue Rosuvastatin Assessment & Plan (08/18/2022 10:33 AM CDT): Chronic problem, currently taking Rosuvastatin 40mg. Last lipid panel: 01/30/22 LDL=62, AY=902. No changes at this time. Hypertension associated with stage 2 chronic kidney disease due to type 2 diabetes mellitus ([facility]) 08/17/2022 Assessment & Plan (04/12/2024 11:42 AM [employer] STRIPPER): Normotensive. Continue taking lisinopril. Red flags reviewed. Assessment & Plan (12/16/2023 10:21 AM CDT): Chronic problem, BP controlled on current lisinopril 40mg daily. No changes at this time. Assessment & Plan (09/13/2023 11:43 AM CDT): Normotensive. Continue lisinopril, clonidine. Will continue monitor. Assessment & Plan (05/04/2023 10:39 AM [employer] STRIPPER): Chronic problem, BP controlled on current lisinopril 40mg daily. No changes at this time. Assessment & Plan (08/18/2022 10:33 AM CDT): Chronic problem, BP controlled on current quinapril 40mg daily. No changes at this time. Mild cognitive impairment 05/28/2022 Assessment & Plan (05/28/2022 4:07 PM [employer] STRIPPER): Patient started on donepezil around 01/2022 and [...] due to type 2 diabetes mellitus ( [facility]/HCC) 03/17/2021 Assessment & Plan (12/16/2023 10:21 AM CDT): Chronic problem. Currently taking Gabapentin 300mg bid. Reviewed foot care; needs to lotion daily. Aware to check feet nightly, not to go barefoot. Assessment & Plan (08/12/2023 11:00 AM [employer] STRIPPER): Foot care discussed Continue gabapentin Assessment & Plan (05/04/2023 11:00 AM [employer] STRIPPER): Chronic problem. Currently taking Gabapentin 300mg bid. Aware to check feet nightly & not go barefoot. Assessment & Plan (01/19/2023 10:01 AM CDT): Foot care discussed Increase gabapentin 300 mg tid Pain of toe of right foot 03/17/2021 Cramps of lower extremity 09/16/2020 Mesenteric artery stenosis (CMS/HCC) 09/16/2020 Renal artery stenosis 09/16/2020 Chest pain [...] aspirin starting Wednesday 11/22. Coronary arteriosclerosis in [place] artery 02/06 Overview (09/11/2016): CAD in [place] artery Impairment of balance 02/07/2016 Overview (09/11/2016): Balance disorder Episodic lightheadedness 03/08/2014 Fall at home, initial encounter 03/08/2014 Heart disease 10/21/2013 Overview (12/25/2021): HYPERTENSION NOS Occlusion and stenosis of unspecified carotid ar shannon 03/02/2013 Overview (05/04/2021): Carotid disease, bilateral Diabetes mellitus 01/13/2013 Overview (12/25/2021): [facility] Overview: [facility] Overview: DMII [facility] Assessment & Plan (06/08/2024 12:04 PM [employer] STRIPPER): Chronic, uncontrolled with a higher A1c Importance [...] placed. Assessment & Plan (08/12/2023 11:00 AM [employer] STRIPPER): Chronic, stable but not at goal Importance of diet and exercise discussed Continue current regimen with Levemir, Humalog, Ozempic and Farxiga Patient interested in an insulin pump Will get C-peptide, fasting glucose and galen antibody If appropriate, will start process for insulin pump Assessment & Plan (05/04/2023 10:58 AM [employer] STRIPPER): Chronic problem. A1c improved from 8.0% 01/2023 [...] hours). Assessment & Plan (07/09/2022 4:06 PM [employer] STRIPPER): Hba1c was Lab Results Component Value Date [...] Send me a message every week, via Parac[employer]m, to let me know how you are doing with your sugars and for us to look at your sugars on Freestyle Rafaela Cardiac arrhythmia 01/13/2013 Overview (05/04/2021): History - Overview: History - Cerebral infarction 01/13/2013 Overview (05/04/2021): R caudate and putamen stroke Irregular heart rhythm 01/13/2013 Overview (05/04/2021): Overview: History - Type 2 diabetes mellitus with diabetic neuropath y ([facility]/HCC) 01/13/2013 Assessment & Plan (09/13/2023 11:42 AM [...] stroke Assessment & Plan (05/28/2022 4:08 PM [employer] STRIPPER): Continues tight control of BP, statin and [...] Overview (12/25/2021): Essential hypertension Overview: Essential hypertension Encounters Date Type Department Care Team Description 06/28/2024 Telephone [facility] [address] [address] Raj Stoddard MD [employer] Solution 06/22/2024 11:00 AM [employer] STRIPPER Office Visit [facility] 6th [place] [address] Syeda Fernandez MD Arthritis of carpometacarpal (CMC) joint of left thumb (Primary Dx); Trigger finger of left thumb; Left carpal tunnel syndrome 06/08/2024 11:15 AM [employer]IPPER Office Visit [facility] [address] [address] Raj Stoddard MD Type 2 diabetes mellitus with hyperglycemia, with long-term current use of insulin (HCC) (Primary Dx) 05/08/2024 Telephone [facility] [address] [address] Raj Stoddard MD Forms/questionnaires ([employer]) 05/03/2024 Telephone [facility] [address] [address] Jad Fisher MD Appointment Request 04/29/2024 11:22 AM [employer]IPPER - 05/01/2024 11:02 AM [employer]PER Hospital Encounter [facility] [address] [place] [address] Ruel Fernández MD Sinha, Chandni, MD Sargsyan, Narine, MD Troponin level elevated (Primary Dx); Congestion of upper respiratory tract; Urinary frequency; Generalized weakness; COVID-19 Discharge Disposition: Discharge to home or self care 04/29/2024 11:04 AM [employer]IPPER - 04/29/2024 11:59 PM [employer] STRIPPER Hospital Encounter [facility] Emergency, Room R Discharge Disposition: Discharge to home or self care 04/25/2024 Telephone [facility] [address] [phone] Jad Fisher MD Medical Question/Miscellaneous 04/21/2024 Telephone [facility] [address] [phone] Jad Fisher MD Medical Question/Miscellaneous 04/12/2024 10:30 AM [employer] Office Visit [facility] [address] [phone] Mer Simpson NP Age-related osteoporosis without current pathological fracture (Primary Dx); BMI 29.0-29.9,adult; Hypertension associated with stage 2 chronic kidney disease due to type 2 diabetes mellitus ([facility]/HCC) (HCC) 04/07/2024 Telephone [facility] [address] [phone] Jad Fisher MD Medical Question/Miscellaneous 04/06/2024 Telephone [facility] [address] [phone] Jad Fisher MD Medical Question/Miscellaneous from Last 3 Months Immunizations Name Administration Dates Next Due Influenza, Quadrivalent, Hig h Dose, Preservative Free, Intrr 02/18/2023,05/28/2022,03/08/2018,03/04 Influenza, Quadrivalent, Rec ombinant, Egg Free, Preservative Free, Intramuscular 03/20/2020 Influenza, Quadrivalent, Spl it, Preservative Free, Intramuscular 02/19/2021,04/05/2016 Influenza, Trivalent, High D ose, Split, Preservative Free, Intramuscular 02/24/2024,03/08/2018,03/04/2017 Pneumococcal Conjugate PCV 13 03/04/2017 Pneumococcal Polysaccharide PPV23 03/08/2018 Surgical History Surgery Date Site/Laterality Comments HYSTERECTOMY Hysterectomy CHOLECYSTECTOMY Cholecystectomy CYST REMOVAL 02/06/2024 - 03/06/2024 Right cyst removed from right wrist TOTAL KNEE ARTHROPLASTY Right WRIST FRACTURE SURGERY 11/26/2022 Left ORIF Medical History Medical History Date Comments Hx Other Medical broken arm Arthritis arthritis Hx Other Medical back problems Hx Other Medical kidney problems Hx Other Medical bladder problem s Hx Other Medical CAD Hx Other Medical dyslipidemia Diabetes mellitus (HCC) diabetes Hx Other Medical PVCs Type 2 diabetes mellitus (HCC) D iabetes type 2 Hyperlipidemia Hyperlipidemia Hypertension Hypertension Motion sickness Sleep apnea Stroke (HCC) Irritable bowel syndrome Frequent urination Depression Other closed intra-articular fracture of distal end of left radius with delayed healing, subsequent encounter Family History Medical History Relation Name Comments Anemia Father 2 Anemia; father of aplastic anemia at age 62, was a Scientologist Heart attack Mother 2 Mother Myocardial infa rction; mother had massive MA at 72 Diabetes type II Other Family hist ory of Diabetes -Type 2; Hypertension Other Family history of Hypertension; Relation Name Status Comments Father 1 Alive Father 2 Mother 1 Mother Alive Mother 2 Mother Other Social History Tobacco Use Types Packs/Day Years [...] often do you attend chur ch or congregational services? 1 to 4 times per year 08/20/2022 Do you belong to any clubs o r organizations such as hinduism groups, unions, fraternal or athletic groups, or [...] staff should administer the PHQ-9) 0 06/08/2024 [facility] [place] [facility] Occupat ional Health - Occupational Stress [...] place to sleep or slept in a group home (including now)? No 08/20/2022 Personal Safety Answer Date Recorded Have you ever been in or are you currently in a harmful physical or emotional relationship or is someone making you feel afraid or unsafe? Denies 04/29/2024 Comments No Sex and Gender Information Value Date Recorded Sex Assigned at Not on file Legal Sex Female 6:13 AM [employer] STRIPPER Gender Identity Not on file Sexual Orientation Straight 06/08/2024 11 :24 AM [employer]IPPER Obstetrics History Para Term AB IAB SAB Ectopic Multiple Livin g Live Births 1 1 1 Date Outcome GA Total Labor Labor/2nd/3rd Weight Sex Type Anes PTL Sarina A1 A5 Name Clin Term Last Filed Vital Signs Vital Sign Reading Time Taken Comments Blood Pressure 132/70 06/08/2024 11:34 AM [employer]IPPER Pulse 88 06/08/2024 11:34 AM [employer] STRIPPER Temperature 36.2 ??C (97.2 ??F) 05/01/2024 7:45 AM CS T Respiratory Rate 20 06/08/2024 11:34 AM [employer]IPPER Oxygen Saturation 97% 05/01/2024 7:45 AM [employer] STRIPPER Inhaled Oxygen Concentration - - Weight 76.8 kg (169 lb 6.4 oz) 06/08/2024 11:34 AM [employer]IPPER Height 154.9 cm (5' 1 ) 06/08/2024 11:34 AM [employer]IPPER Body Mass Index 32.01 06/08/2024 11:34 AM [employer]IPPER Plan of Treatment Health Maintenance Due Date Last Done Comments Hepatitis C Screening 1950 DTaP/Tdap/Td Vaccine (1 - Tdap) 1963 Hepatitis B Screening 1970 Zoster Vaccine (1 of 2) 2002 Covid-19 Vaccine (3 - 2023-2 5 season) 2024 08/06/2020, 07/09/2020 Breast Cancer Screening-Mammogram 04/16/2024 04/16/2023, 11/11/2020, 11/11/2020 Foot Exam 10/19/2024 10/20/2023, 05/08/2022 Hemoglobin A1C 12/06/2024 06/08/2024, 12/05, 08/12/2023, Additional history exists Albumin Creatinine Ratio, Urine 02/13/2025 02/14/2024, 02/18/2023, 01/30/2022 Lipid Panel 02/13/2025 02/14/2024, 02/05, 01/30/2022, Additional history exists Well Visit 65+ 02/23/2025 02/24/2024, 02/18/2023 eGFR 05/01/2025 05/01/2024, 04/08, 04/29/2024, Additional history exists Depression Screening 06/08/2025 06/08/2024, 04/12/2024, 02/24/2024, Additional history exists Fall Risk Assessment 06/08/2025 06/08/2024, 05/01/2024, 02/24/2024, Additional history exists Dilated Eye Exam 10/18/2025 10/19/2023, 07/14/2022 Osteoporosis Screening-Bone Density Scan 03/23/2026 03/23/2024 Colon Cancer Screening-Colonoscopy 04/04/2029 04/04/2024, 02/10/2023 Pneumococcal vaccine 65+ Completed 03/08/2018, 02/06 Influenza Vaccine Completed 02/24/2024, , 05/28/2022, Additional history exists Colon Cancer Screening-CT Colonography Discontinued 04/04/2024, 02/10/2023 Colon Cancer Screening-DNA Stool Discontinued 04/04/20 24, 02/10/2023 Colon Cancer Screening-FIT Discontinued 04/04/2024, Colon Cancer Screening-Sigmoidoscopy Discontinued 04/04/2024, 02/10/2023 Medical Devices Implanted Type Area Transportation Coordinator Device Identifier Shelf Expiration Date Model / Serial / Lot [employer] Dvr [id number] Crosslock [place] Screw Hole Fix Angle Radius Left 1311-050 - [id number] Implanted:Qty: 1 on 11/26/2022 by Chang Ward MD at [facility] Left: Wrist [employer] [id number] / / [employer] Dvr 2.7mm 18mm 3 Lead Thread Lock Taper Head Radius Distal Volar 1312-59-118 - [id number] Implanted:Qty: 1 on 11/26/2022 by Chang Ward MD at [facility] Left: Wrist [employer] [id number] / / [employer] Dvr 2.7mm 20mm Lock Spine Screw Bone Nonsterile [id number] - [id number] Implanted:Qty: 2 on 11/26/2022 by Chang Ward MD at [facility] Left: Wrist [employer] [id number] / / [employer] 2.7mm 13mm Nonlock Low Profile Radius Distal Screw Bone [id number] - [id number] Implanted:Qty: 1 on 11/26/2022 by Chang Ward MD at [facility] Left: Wrist [employer] [id number] / / [employer] Dvr 2.7mm 14mm Lock Cortical Screw Bone Nonsterile Latex Free 1312-27-114 - [id number] Implanted:Qty: 2 on 11/26/2022 by Chang Ward MD at [facility] Left: Wrist [employer] 1312-27-114 / / [employer] Dvr 2.7mm 13mm Lock 3 Lead Thread Crosslock Taper Head Radius 1312-27-113 - [id number] Implanted:Qty: 1 on 11/26/2022 by Chang Ward MD at [facility] Left: Wrist [employer] 1312-27-113 / / Procedures Procedure Name Priority Date/Time Associated Diagnosis Comments POCT GLUCOSE Routine 06/08/2024 11:35 AM [employer]IPPER Type 2 diabetes mellitus with hyperglycemia, with long-term current use of insulin (HCC) POCT HEMOGLOBIN A1C Routine 06/08/2024 1 1:35 AM [employer] STRIPPER Type 2 diabetes mellitus with hyperglycemia, with long-term current use of insulin (HCC) POCT GLUCOSE DEVICE Routine 05/01/2024 7 :41 AM [employer] STRIPPER EGFR Routine 05/01/2024 4:27 AM [employer] STRIPPER DIFFERENTIAL AUTO Routine 05/01/2024 4:2 7 AM [employer] STRIPPER COMPREHENSIVE METABOLIC PANEL Routine 05/01/2024 4:27 AM [employer]IPPER CBC WITH AUTO DIFFERENTIAL Routine 05/01/2024 4:27 AM [employer] STRIPPER PHOSPHORUS Routine 05/01/2024 4:27 AM [employer]IPPER MAGNESIUM Routine 05/01/2024 4:27 AM [employer] STRIPPER POCT GLUCOSE DEVICE Routine 05/01/2024 1 :55 AM [employer] STRIPPER POCT GLUCOSE DEVICE Routine 04/30/2024 8 :40 PM [employer]IPPER POCT GLUCOSE DEVICE Routine 04/30/2024 4 :10 PM [employer]IPPER POCT GLUCOSE DEVICE Routine 04/30/2024 1 2:23 PM [employer]IPPER POCT GLUCOSE DEVICE Routine 04/30/2024 8 :58 AM [employer]IPPER PROCALCITONIN Routine 04/30/2024 8:21 AM [employer]IPPER EGFR Routine 04/30/2024 3:34 AM [employer]IPPER COMPREHENSIVE METABOLIC PANEL Routine 04/30/2024 3:34 AM [employer] STRIPPER PHOSPHORUS Routine 04/30/2024 3:34 AM [employer] STRIPPER MAGNESIUM Routine 04/30/2024 3:34 AM [employer]IPPER POCT GLUCOSE DEVICE Routine 04/30/2024 2 :18 AM [employer]IPPER POCT GLUCOSE DEVICE Routine 04/30/2024 1 2:17 AM [employer]IPPER POCT GLUCOSE DEVICE Routine 04/29/2024 1 0:16 PM [employer] POCT GLUCOSE DEVICE Routine 04/29/2024 8 :47 PM [employer]PER TROPONIN T HIGH-SENSITIVITY 6-HOUR Timed 04/29/2024 7:12 PM [employer]PER TROPONIN T HIGH-SENSITIVITY 4-HR Timed 04/29/2024 5:32 PM [employer]IPPER POCT GLUCOSE DEVICE Routine 04/29/2024 4 :43 PM [employer]IPPER TROPONIN T HIGH-SENSITIVITY 2-HOUR Timed 04/29/2024 4:01 PM [employer]IPPER POCT GLUCOSE DEVICE Routine 04/29/2024 3 :39 PM [employer]IPPER TROPONIN T HIGH-SENSITIVITY SERIES (BASELINE, 2HR, 4HR, 6HR) STAT 04/29/2024 1:27 PM [employer]IPPER STREPTOCOCCUS GROUP A PCR STAT 04/29/2024 1:27 PM [employer]IPPER URINALYSIS, MICROSCOPIC ONLY STAT 04/29/2024 12:44 PM [employer]PER URINALYSIS AND REFLEX TO MICROSCOPIC AND CULTURE STAT 04/29/2024 12:44 PM [employer]IPPER XR CHEST PA LATERAL 2 VIEWS ED 04/29/2024 11:42 AM [employer]IPPER PRO B-TYPE NATRIURETIC PEPTIDE STAT 04/29/2024 11:35 AM [employer]IPPER TROPONIN T HIGH-SENSITIVITY Routine 04/29/2024 11:35 AM [employer]IPPER RESPIRATORY PATHOGEN PANEL STAT 04/29/2024 11:35 AM [employer]IPPER EGFR STAT 04/29/2024 11:30 AM [employer]IPPER DIFFERENTIAL AUTO STAT 04/29/2024 11: 30 AM [employer]IPPER COMPREHENSIVE METABOLIC PANEL STAT 04/29/2024 11:30 AM [employer]IPPER CBC WITH AUTO DIFFERENTIAL STAT 04/29/2024 11:30 AM [employer]IPPER ECG 12-LEAD STAT 04/29/2024 11:29 AM [employer]IPPER COLONOSCOPY REPORT Routine 04/04/2024 10 :21 AM [...] Read Routine (OP Routine) 04/16/2023 12:56 PM [employer]PER Encounter for screening mammogram for malignant neoplasm of breast from Last 3 Months or Most Recently Relevant to Health Maintenance Results * (ABNORMAL) POCT hemoglobin A1c (06/08/2024 11:35 AM [employer]IPPER) Hemoglobin A1C, POC 7.7 4.0 - 5.6 % Comment:None Capillary blood 06/08/2024 1 1:35 AM [employer]IPPER us Raj Stoddard MD POINT OF CARE TEST ORDERABLES Fi nal Result * (ABNORMAL) POCT glucose (06/08/2024 11:35 AM [employer] STRIPPER) Glucose Blood, POC 214 mg/dL Comment:None Blood 06/08/2024 11:3 5 AM [employer]IPPER us Raj Stoddard MD POINT OF CARE TEST ORDERABLES Fi nal Result * POCT glucose (05/01/2024 7:41 AM [employer] STRIPPER) Glucose, POC 179 70 - 199 mg/dL Blood 05/01/2024 7:41 AM [employer] STRIPPER 05/01/2024 7:41 AM [employer]IPPER us Amanda Walker MD LAB POCT ORDERABLES - DEVICE Final Result [facility] [place] 1 [facility] [place] [address] * eGFR (05/01/2024 4:27 AM [employer] STRIPPER) eGFR 78 >=60 mL/min/1. 73 m2 Comment: [...] last reviewed 2021. Blood 05/01/2024 4:27 AM [employer] ET[employer] STRIPPER 05/01/2024 5:47 AM [employer] STRIPPER us Bro Jameson MD LAB BLOOD ORDERABLES Final Resu lt [facility] ([place]) 1 [facility] [place] [address] * Differential, auto (05/01/2024 4:27 AM [employer] STRIPPER) Neutrophil abs 4.3 1.5 - 6.5 K/cumm Imm gran abs 0.0 0.0 - 0.1 K/cumm [facility] ([place]) Lymphocyte abs 1.6 0.8 - 3.3 K/cumm [facility] ([place]) Monocyte abs 0.4 0.2 - 0.8 K/cumm [facility] ([place]) Eosinophil abs 0.1 0.0 - 0.5 K/cumm [...] revised on 2017. Blood 05/01/2024 4:27 AM [employer] STRIPPER 05/01/2024 5:47 AM [employer] STRIPPER us Bro Jameson MD LAB BLOOD ORDERABLES Final Resu lt [facility] ([place]) 1 [facility] [place] [address] * CBC with auto differential (05/01/2024 4:27 AM [employer] STRIPPER) WBC 6.4 3.8 - 9.9 K/cumm Hgb [...] [facility] ([place]) Blood 05/01/2024 4:27 AM [employer] STRIPPER 05/01/2024 5:47 AM [employer] STRIPPER Bro Jameson MD LAB BLOOD ORDERABLES Final Resu lt Performing Organization Address City/[facility]/ZIP Co de Phone Number [facility] ([place]) 1 [facility] [place] [address] * Phosphorus (05/01/2024 4:27 AM [employer]CH[employer] STRIPPER) Phosphorus, pl 4.2 2.3 - 4.5 mg/dL Blood 05/01/2024 4:27 AM [employer] STRIPPER 05/01/2024 5:47 AM [employer] STRIPPER Bro Jameson MD LAB BLOOD ORDERABLES Final Resu lt [facility] ([place]) 1 [facility] [place] [address] * Magnesium (05/01/2024 4:27 AM [employer] STRIPPER) Magnesium 1.8 1.4 - 2.5 mg/dL Blood 05/01/2024 4:27 AM [employer] STRIPPER 05/01/2024 5:47 AM [employer] STRIPPER us Bro Jameson MD LAB BLOOD ORDERABLES Final Resu lt [facility] ([place]) 1 [facility] [place] [address] * (ABNORMAL) Comprehensive metabolic panel (05/01/2024 4:27 AM [employer]IPPER) Sodium 137 135 - 145 mmol/L Potassium, pl 3.5 3.3 - 4.9 mmol/L [facility] ([place]) Chloride 101 97 - 110 mmol/L [facility] ([place]) CO2 25 22 - 32 mmol/L [facility] ([place]) Anion gap 11 2 - 15 mmol/L [facility] ([place]) BUN 15 6 - 25 mg/dL [facility] Creatinine 0.80 0.60 - 1.10 mg/dL [facility] ([place]) Glucose 131 70 - 199 mg/dL [facility] ([place] Comment: Interpretive Data Fasting glucose [...] classification and Diagnosis of Diabetes Diabetes Care 202; 46: S19-S40. Current interpretive data was last [...] [facility] ([place]) Blood 05/01/2024 4:27 AM [employer] STRIPPER 05/01/2024 5:47 AM [employer] STRIPPER us Bro Jameson MD LAB BLOOD ORDERABLES Final Resu lt [facility] ([place]) 1 [facility] [place] [address] * POCT glucose (05/01/2024 1:55 AM [employer] STRIPPER) Glucose, POC 131 70 - 199 mg/dL Blood 05/01/2024 1:55 AM [employer] STRIPPER 05/01/2024 1:55 AM [employer] STRIPPER us Amanda Walker MD LAB POCT ORDERABLES - DEVICE Final Result Performing Organization Address City/[facility]/ZIP Co de Phone Number [facility] ([place]) 1 [facility] [place] [address] * (ABNORMAL) POCT glucose (04/30/2024 8:40 PM [employer] STRIPPER) Glucose, POC 245(H) 70 - 199 mg/dL Blood 04/30/2024 8:40 PM [employer] ET[employer]ER STRIPPER 04/30/2024 8:40 PM [employer] STRIPPER us Amanda Walker MD LAB POCT ORDERABLES - DEVICE Final Result Performing Organization Address City/[facility]/ZIP Co de Phone Number YAMILEX JHA ([place]) 1 [facility] [place] [address] * POCT glucose (04/30/2024 4:10 PM [employer]CH[employer] STRIPPER) Glucose, POC 119 70 - 199 mg/dL Blood 04/30/2024 4:10 PM [employer] STRIPPER 04/30/2024 4:10 PM [employer]CH[employer] STRIPPER Amanda Walker MD LAB POCT ORDERABLES - DEVICE Final Result YAMILEX JHA ([place]) 1 [facility] [place] [address] * (ABNORMAL) POCT glucose (04/30/2024 12:23 PM [employer]CH[employer] STRIPPER) Glucose, POC 249(H) 70 - 199 mg/dL Blood 04/30/2024 12:2 3 PM [employer] STRIPPER 04/30/2024 12:23 PM [employer]CH[employer] STRIPPER us Amanda Walker MD LAB POCT ORDERABLES - DEVICE Final Result Performing Organization Address City/[facility]/ZIP Co de Phone Number YAMILEX JHA ([place]) 1 [facility] [place] [address] * (ABNORMAL) POCT glucose (04/30/2024 8:58 AM [employer]CH[employer] STRIPPER) Glucose, POC 207(H) 70 - 199 mg/dL Blood 04/30/2024 8:58 AM [employer]CH[employer] STRIPPER 04/30/2024 8:58 AM [employer]CH[employer] STRIPPER Amanda Walker MD LAB POCT ORDERABLES - DEVICE Final Result Performing Organization Address City/[facility]/ZIP Co de Phone Number YAMILEX JHA ([place]) 1 [facility] [place] [address] * Procalcitonin (04/30/2024 8:21 AM [employer]CH[employer] STRIPPER) Procalcitonin 0.08 <=0.25 ng/mL Comment:Testing performed by : [facility], [facility]5 [facility], [place]., [address] Blood 04/30/2024 8:21 AM [employer]CH[employer] STRIPPER 04/30/2024 2:38 PM [employer]CH[employer] STRIPPER us Bro Jameson MD LAB BLOOD ORDERABLES Final Resu lt Performing Organization Address City/[facility]/ZIP Co de Phone Number YAMILEX JHA [place]) 1 [facility] [place] [address] * eGFR (04/30/2024 3:34 AM [employer]CH[employer] STRIPPER) eGFR 83 >=60 mL/min/1. 73 m2 Comment: [...] last reviewed 2021. Blood 04/30/2024 3:34 AM [employer] STRIPPER 04/30/2024 4:32 AM [employer]CH[employer] STRIPPER us Bro Jameson MD LAB BLOOD ORDERABLES Final Resu lt YAMILEX JHA ([place]) 1 [facility] [place] [address] * Phosphorus (04/30/2024 3:34 AM [employer]CH[employer] STRIPPER) Pathologist [facility] Phosphorus, pl 3.2 2.3 - 4.5 mg/dL Blood 04/30/2024 3:34 AM [employer]CH[employer] STRIPPER 04/30/2024 4:32 AM [employer]CH[employer] STRIPPER Bro Jameson MD LAB BLOOD ORDERABLES Final Resu lt YAMILEX JHA ([place]) 1 [facility] [address] * Magnesium (04/30/2024 3:34 AM [employer] WAF[employer] ETCHER STRIPPER) [facility] Magnesium 1.6 1.4 - 2.5 mg/dL Blood 04/30/2024 3:34 AM [employer] STRIPPER 04/30/2024 4:32 AM [employer]CH[employer] STRIPPER Bro Jameson MD LAB BLOOD ORDERABLES Final Resu lt Performing Organization Address City/[facility]/ZIP Co de Phone Number YAMILEX JHA ([place]) 1 [facility] [place] [address] * (ABNORMAL) Comprehensive metabolic panel (04/30/2024 3:34 AM [employer] ETCH[employer] STRIPPER) [facility] Sodium 135 135 - 145 mmol/L Potassium, pl 3.5 3.3 - 4.9 mmol/L [facility] ([place]) Chloride 99 97 - 110 mmol/L [facility] ([place]) CO2 21(L) 22 - 32 mmol/L [facility] ([place]) Anion gap 14 2 - 15 mmol/L [facility] ([place]) BUN 11 6 - 25 mg/dL [facility] ([place]) Creatinine 0.76 0.60 - 1.10 mg/dL [facility] ([place]) Glucose 258(H) 70 - 199 mg/dL [facility] ([place]) Comment: Interpretive Data Fasting glucose [...] [facility] ([place]) Blood 04/30/2024 3:34 AM [employer]CH[employer] STRIPPER 04/30/2024 4:32 AM [employer] ETCH[employer] STRIPPER us Bro Jameson MD LAB BLOOD ORDERABLES Final Resu lt YAMILEX JHA ([place]) 1 [facility] [place] [address] * (ABNORMAL) POCT glucose (04/30/2024 2:18 AM [employer]CH[employer] STRIPPER) Glucose, POC 217(H) 70 - 199 mg/dL Blood 04/30/2024 2:18 AM [employer] ETCH[employer] STRIPPER 04/30/2024 2:18 AM [employer] ETCH[employer] STRIPPER us Marva Gandara MD LAB POCT ORDERABLES - DEVICE Fi nal Result Performing Organization Address City/[facility]/ZIP Co de Phone Number YAMILEX JHA ([place]) 1 [facility] [place] [address] * (ABNORMAL) POCT glucose (04/30/2024 12:17 AM [employer]CH[employer] STRIPPER) Glucose, POC 235(H) 70 - 199 mg/dL Blood 04/30/2024 12:1 7 AM [employer] ETCHER STRIPPER 04/30/2024 12:17 AM [employer]CH[employer] STRIPPER Marva Gandara MD LAB POCT ORDERABLES - DEVICE Fi nal Result Performing Organization Address [facility] Co de Phone Number [facility]X [facility] ([place]) 1 [facility] [place] [address] * (ABNORMAL) POCT glucose (04/29/2024 10:16 PM [employer]CH[employer] STRIPPER) Glucose, POC 201(H) 70 - 199 mg/dL Blood 04/29/2024 10:1 6 PM [employer] ETCH[employer] STRIPPER 04/29/2024 10:16 PM [employer]CH[employer] STRIPPER Marva Gandara MD LAB POCT ORDERABLES - DEVICE Fi nal Result Performing Organization Address [facility] Co de Phone Number [facility]X [facility] ([place]) 1 [facility] [place] [address] * (ABNORMAL) POCT glucose (04/29/2024 8:47 PM [employer]CH[employer] STRIPPER) [facility] Glucose, POC 244(H) 70 - 199 mg/dL Blood 04/29/2024 8:47 PM [employer]CH[employer] STRIPPER 04/29/2024 8:47 PM [employer]CH[employer] STRIPPER Marva Gandara MD LAB POCT ORDERABLES - DEVICE Fi nal Result Performing Organization Address [facility] Co de Phone Number [facility] ([place]) 1 [facility] [place] [address] * (ABNORMAL) Troponin T high-sensitivity 6-hour (04/29/2024 7:12 PM [employer]CH[employer] STRIPPER) Pathologist [facility] Trop T hs 15(H) <=14 ng/L Comment: Interpretive Data For further hscTnT resources including the diagnostic algorithm and an aid in interpretation, copy and paste this link: https://nrl.testcatalog.org/show/hsTrop Current Interpretive Data last revised 2020. Trop T hs delta 1 ng/L [facility] ([place]) Trop T hs interp Insignificant [facility] ([place]) Blood 04/29/2024 7:12 PM [employer] ETCH[employer] STRIPPER 04/29/2024 7:20 PM [employer]CH[employer] STRIPPER Ruel Fernández MD LAB BLOOD ORDERABLES Final Resul t Performing Organization Address City/[facility]/ZIP Co de Phone Number YAMILEX JHA ([place]) 1 [facility] [address] * Troponin T high-sensitivity 4-hour (04/29/2024 5:32 PM [employer]CH[employer] STRIPPER) Trop T hs 14 <=14 ng/L Comment: Interpretive Data For further hscTnT resources including the diagnostic algorithm and an aid in interpretation, copy and paste this link: https://nrl.testcatalog.org/show/hsTrop Current Interpretive Data last revised 2020. Trop T hs delta 0 ng/L [facility] ([place]) Trop T hs interp Insignificant [facility] ([place]) Blood 04/29/2024 5:32 PM [employer] ETCH[employer] STRIPPER 04/29/2024 5:42 PM [employer] ETCH[employer] STRIPPER Ruel Fernández MD LAB BLOOD ORDERABLES Final Resul t Performing Organization Address City/[facility]/ZIP Co de Phone Number YAMILEX JHA ([place]) 1 [facility] [address] * POCT glucose (04/29/2024 4:43 PM [employer]CHER STRIPPER) Glucose, POC 155 70 - 199 mg/dL Blood 04/29/2024 4:43 PM [employer] ETCHER STRIPPER 04/29/2024 4:43 PM [employer]CHER STRIPPER Marva Gandara MD LAB POCT ORDERABLES - DEVICE Fi nal Result Performing Organization Address City/[facility]/ZIP Co de Phone Number YAMILEX JHA ([place]) 1 [place] [address] * (ABNORMAL) Troponin T high-sensitivity 2-hour (04/29/2024 4:01 PM [employer] ETCHER STRIPPER) Trop T hs 15(H) <=14 ng/L Comment: Interpretive Data For further hscTnT resources including the diagnostic algorithm and an aid in interpretation, copy and paste this link: https://nrl.Ask The Doctor.org/show/hsTrop Current Interpretive Data last revised 2020. Trop T hs delta 1 ng/L [facility] ([place]) Trop T hs interp Insignificant [facility] ([place]) Blood 04/29/2024 4:01 PM [employer] ETCHER STRIPPER 04/29/2024 4:08 PM [employer]CH[employer] STRIPPER Ruel Fernández MD LAB BLOOD ORDERABLES Final Resul t Performing Organization Address City/[facility]/ZIP Co de Phone Number YAMILEX JHA ([place]) [address] [place] [id number] * POCT glucose (04/29/2024 3:39 PM SEM[employer]CTOR W[employer] ETCHER STRIPPER) [facility] Glucose, POC 182 70 - 199 mg/dL Blood 04/29/2024 3:39 PM [employer] ETCHER STRIPPER 04/29/2024 3:39 PM [employer] ETCHER STRIPPER us Marva Gandara MD LAB POCT ORDERABLES - DEVICE Fi nal Result YAMILEX JHA ([place]) 1 [place] [address] * Troponin T high-sensitivity series (baseline, 2hr, 4hr, 6hr) (04/29/2024 1:27 PM [employer] ETCHER STRIPPER) Pathologist [facility] Trop T hs 14 <=14 ng/L Comment: Interpretive Data For further hscTnT resources including the diagnostic algorithm and an aid in interpretation, copy and paste this link: https://nrl.Ask The Doctor.org/show/hsTrop Current Interpretive Data last revised 2020. Blood 04/29/2024 1:27 PM [employer] ETCHER STRIPPER 04/29/2024 1:29 PM [employer] ETCHER STRIPPER Ruel Fernández MD LAB BLOOD ORDERABLES Final Resul t YAMILEX JHA ([place]) 1 [facility] [place] [address] * Streptococcus Group A PCR Throat (04/29/2024 1:27 PM [employer] ETCHER STRIPPER) Strep A DNA Not Detected Not Detected Comment: This test is performed using the [employer] Xpert Group A Streptococcal Assay. This is [...] the performing laboratory. Throat 04/29/2024 1:27 PM [employer] ETCHER STRIPPER 04/29/2024 1:29 PM [employer] ETCHER STRIPPER Ruel Fernández MD LAB MICROBIOLOGY - GENERAL ORDER LEV Final Result Performing Organization Address City/[facility] Co de Phone Number YAMILEX JHA ([place]) 1 [facility] [place] [address] * (ABNORMAL) Urinalysis reflex to microscopic and culture Urine (04/29/2024 12:44 PM [employer] W[employer] ETCHER STRIPPER) Color, ur Yellow Yellow Clarity, ur Clear Clear YAMILEX Beltran ([place]) Specific gravity, ur 1.009 1.003 - 1.030 YAMILEX JHA ([place]) pH, urine 6.0 [facility]X [facility] ([place]) Comment: Interpretive Data ? Urine pH is affected by diet, medications, systemic acid-base disturbances, and renal tubular function. ??pH may affect urinary stone formation. ??For example, urine pH below 6.0 may help reduce the tendency for calcium phosphate stones and pH greater than 6.0 may reduce the tendency for uric acid stone formation. Source: [facility] [place] Current Interpretive Data was last revised on [...] Reflex to microscopic UA will be performed. YAMILEX JHA ([place]) Urine 04/29/2024 12:4 4 PM [employer] ETCHER STRIPPER 04/29/2024 12:46 PM [employer] ETCH[employer] STRIPPER Ruel Fernández MD LAB MICROBIOLOGY - GENERAL ORDER LEV Final Result Performing Organization Address City/[facility] Co de Phone Number YAMILEX JHA ([place]) 1 [facility] [place] [address] * (ABNORMAL) Urinalysis, microscopic only (04/29/2024 12:44 PM [employer]CHER STRIPPER) WBC, ur 0-5 0 - 5 /HPF RBC, ur 0-2 0 - 2 /HPF [facility] ([place]) Epithelial cells, squamous, ur 1-5 0 - 5 /HPF [facility] ([place]) Mucous, ur Present(A) [facility] ([place]) Culture Reflex Comment Reflex conditions for urine culture (WBC >10) not met. YAMILEX JHA ([place]) Urine 04/29/2024 12:4 4 PM [employer] ETCHER STRIPPER 04/29/2024 12:46 PM [employer] ETCHER STRIPPER Ruel Fernández MD LAB URINE ORDERABLES Final Resul t Performing Organization Address City/[facility]/ZIP Co de Phone Number YAMILEX JHA ([place]) 1 [facility] [place] [address] * XR Chest Pa Lateral 2 Views (04/29/2024 11:42 AM [employer] ETCHER STRIPPER) Anatomical Region Laterality Modality Body, Chest N/A Computed Radiogr aphy 04/29/2024 12:1 7 PM [employer] ETCHER STRIPPER Narrative 04/29/2024 12:18 PM [employer] ETCHER STRIPPER EXAM DESCRIPTION: XR CHEST PA LATERAL 2 VIEWS REASON FOR STUDY: general weakness, URI symptoms, assess for PNA, other infectious signs ?? Patient presents to the ED per EMS [facility] from home where patient called EMS for weakness since Wednesday when she came home from [place], patient states she went to [facility] and got wet in the rain . [...] PM T: ??04/29/2024 12:18 PM Report ID: [id number] [place] Location: ??[id number] Procedure Note Oniel Horvath, DO - 04/29/2024 EXAM DESCRIPTION: XR CHEST PA LATERAL 2 VIEWS REASON FOR STUDY: general weakness, URI symptoms, assess for PNA, other infectious signs Patient presents to the ED per EMS [facility] from home where patient called EMSfor weakness since Wednesday when she came home from [place], patient statesshe went [facility] and got wet in the rain . [...] Oniel Horvath M.D. MF: BLESSING Report ID: [id number] [place] Location: [place] [address] Ruel Fernández MD IMG XR PROCEDURES Final Result * (ABNORMAL) Troponin T high-sensitivity (04/29/2024 11:35 AM [employer] ETCHER STRIPPER) Trop T hs 15(H) <=14 ng/L Comment: Interpretive Data For further hscTnT resources including the diagnostic algorithm and an aid in interpretation, copy and paste this link: https://nrl.testcatalog.org/show/hsTrop Current Interpretive Data last revised 2020. Blood 04/29/2024 11:3 5 AM [employer] ETCHER STRIPPER 04/29/2024 11:38 AM [employer] ETCHER STRIPPER Ruel Fernández MD LAB BLOOD ORDERABLES Final Resul t Performing Organization Address City/State/[facility] Co de Phone Number [facility] [place] 1 [facility] [place] [address] * (ABNORMAL) Pro B-type natriuretic peptide (04/29/2024 11:35 AM [employer] W[employer] ETCHER STRIPPER) NT-proBNP 365(H) <=300 pg/mL Comment: Interpretive Comments: [...] et.al. Eur Heart J. 2006:27:330-337. 2. Iliana RW, Herbert AM. J. AM Aylin Cardiol: Cardiovasc Imag. 2009;2: 216- 225. Interpretive Data Last Revised Date: 2018. Blood 04/29/2024 11:3 5 AM [employer] W[employer] ETCHER STRIPPER 04/29/2024 11:39 AM [employer] ETCHER STRIPPER us Ruel Fernández MD LAB BLOOD ORDERABLES Final Resul t [facility] ([place]) 1 [facility] [place] [address] * (ABNORMAL) Respiratory pathogen panel Nasopharyngeal (04/29/2024 11:35 AM [employer] ETCHER STRIPPER) Influenza A RNA Not Detected Not Detected CH Comment:Testing performed by : [facility], [address] [place] [address]., [id number] Influenza B RNA Not Detected Not Detected [facility] ([place]) Comment:Testing performed by : [facility], [address] [place] [address]., [id number] RSV RNA Not Detected Not Detected [facility] ([place]) Comment:Testing performed by : [facility], [address] [place] [address]., [id number] COVID-19 RNA Detected(A) Not Detected [facility] ([place]) Comment:Testing performed by : [facility], [address] [place] [address]., [id number] Coronavirus 229E RNA Not Detected Not Detected [facility] ([place]) Comment:Testing performed by : [facility], [address] [place] [address]., [address] Coronavirus HKU1 RNA Not Detected Not Detected [facility] ([place]) Comment:Testing performed by : [facility], [address] [place] [address], [id number] Coronavirus NL63 RNA Not Detected Not Detected [facility] ([place]) Comment:Testing performed by : [facility], [address] [place] [address], [phone] Coronavirus OC43 RNA Not Detected Not Detected [facility] ([place]) Comment:Testing performed by : [facility], [address] [place] [address]., [phone] Adenovirus DNA Not Detected Not Detected [facility] ([place]) Comment:Testing performed by : [facility], [address] [place] [address], [id number] Metapneumovirus RNA Not Detected Not Detected [facility] ([place]) Comment:Testing performed by : [facility], [address] [place] [address], [phone] Rhinovirus/Enterov irus RNA Not Detected Not Detected [facility] ([place]) Comment:Testing performed by : [facility], [address] [place] [address], [phone] Parainfluenza 1 RNA Not Detected Not Detected [facility] ([place]) Comment:Testing performed by : [facility], [address] [place] [address], [id number] Parainfluenza 2 RNA Not Detected Not Detected [facility] ([place]) Comment:Testing performed by : [facility], [address] [place] [address]., [id number] Parainfluenza 3 RNA Not Detected Not Detected [facility] ([place]) Comment:Testing performed by : [facility], [address] [place] [address]., [id number] Parainfluenza 4 RNA Not Detected Not Detected [facility] ([place]) Comment:Testing performed by : [facility], [address] [place] [address]., [address] B. pertussis DNA Not Detected Not Detected [facility] ([place]) Comment:Testing performed by : [facility], [address] [place] [address]., [phone] B. parapertussis DNA Not Detected Not Detected [facility] ([place]) Comment:Testing performed by : [facility], [address] [place] [address]., [phone] C. pneumoniae DNA Not Detected Not Detected [facility] ([place]) Comment:Testing performed by : [facility], [address] [place] [address]., [phone] M. pneumoniae DNA Not Detected Not Detected [facility] ([place]) Comment: Interpretive Data The [employer] Film[employer] Respiratory Panel (RP2.1) assay is a [...] assay has FDA clearance for testing of EXCHANGE TROUBLE SHOOTER swabs. ??The performance characteristics of this assay have been determined by [facility]. Current interpretive data was last revised on 2020. Testing performed by: [facility], [address] [place] [address]., [id number] Nasopharyngeal 04/29/2024 11 :35 AM [employer] ETCHER STRIPPER 04/29/2024 1:22 PM [employer] ETCHER STRIPPER Narrative YAMILEX JHA ([place]) - 04/29/2024 2:16 PM [employer] ETCHER STRIPPER Is the Patient experiencing symptoms consistent with COVID?->Yes Surveillance testing for transplant patient?->No Ruel Fernández MD LAB MICROBIOLOGY - GENERAL ORDER LEV Final Result YAMILEX ABHIJEET ([place]) 1 [facility] of Laboratories [place], [place] [id number] CH * eGFR (04/29/2024 11:30 AM [employer] W[employer] ETCHER STRIPPER) eGFR 81 >=60 mL/min/1. 73 m2 Comment: [...] reviewed 2021. Blood 04/29/2024 11:3 0 AM [employer] ETCHER STRIPPER 04/29/2024 11:38 AM [employer] ETCHER STRIPPER Ruel Fernández MD LAB BLOOD ORDERABLES Final Resul t [facility] ([place]) 1 [facility] Department of Laboratories [place], [place] [id number] * Differential, auto (04/29/2024 11:30 AM [employer] WAF[employer] ETCHER STRIPPER) Neutrophil abs 6.2 1.5 - 6.5 K/cumm [...] Neutrophil pct 76.9 % [facility] ([place]) Comment: Interpretive Data Percent cell count reference [...] on 2017. Blood 04/29/2024 11:3 0 AM [employer] W[employer] ETCHER STRIPPER 04/29/2024 11:39 AM [employer] W[employer] ETCHER STRIPPER Ruel Fernández MD LAB BLOOD ORDERABLES Final Resul t YAMILEX JHA ([place]) 1 [facility] [place] [address] * (ABNORMAL) CBC with auto differential (04/29/2024 11:30 AM [employer] W[employer] ETCHER STRIPPER) WBC 8.1 3.8 - 9.9 K/cumm Hgb 13.8 11.9 - 15.5 g/dL [facility] ([place]) Hct 42.3 35.6 - 45.5 % YAMILEX [facility] ([place]) Plt 136(L) 150 - 400 K/cumm YAM[facility]X [facility] ([place]) MPV 10.2 9.1 - 12.3 fL [facility] ([place]) RBC 4.61 3.90 - 5.20 M/cumm [facility] ([place] MCV 91.8 81.3 - 96.4 fL [facility] ([place]) MCH 29.9 27.1 - 33.3 pg [facility] ([place] MCHC 32.6 32.3 - 35.7 g/dL [facility] ([place] RDW CV 13.5 11.1 - 14.9 % [facility] ([place] RDW SD 45.6 35.7 - 48.1 fL [facility] ([place] NRBC abs 0.00 0.00 - 0.01 K/cumm [facility] ([place]) Blood 04/29/2024 11:3 0 AM [employer] ETCHER STRIPPER 04/29/2024 11:39 AM [employer] ETCHER STRIPPER Ruel Fernández MD LAB BLOOD ORDERABLES Final Resul t [facility] ([place]) 1 [facility] [place] [address] * (ABNORMAL) Comprehensive metabolic panel (04/29/2024 11:30 AM [employer] W[employer] ETCHER STRIPPER) Sodium 135 135 - 145 mmol/L Potassium, pl 3.8 3.3 - 4.9 mmol/L [facility] ([place]) Chloride 99 97 - 110 mmol/L [facility] ([place]) CO2 18(L) 22 - 32 mmol/L [facility] ([place] Anion gap 18(H) 2 - 15 mmol/L [facility] ([place]) BUN 9 6 - 25 mg/dL [facility] ([place] Creatinine 0.78 0.60 - 1.10 mg/dL [facility] ([place]) Glucose 221(H) 70 - 199 mg/dL [facility] ([place]) Comment: Interpretive Data Fasting glucose [...] - 8.5 g/dL [facility] ([place]) Albumin 3.7 3.5 - 5.0 g/dL [facility] ([place]) Alk phos 88 40 - 130 Units/L [facility] ([place]) ALT 20 7 - 45 Units/L [facility] ([place]) AST 27 10 - 45 Units/L [facility] ([place]) Comment:Slightly Hemolyzed S pecimen Blood 04/29/2024 11:3 0 AM [employer] ETCHER STRIPPER 04/29/2024 11:38 AM [employer] ETCHER STRIPPER Ruel Fernández MD LAB BLOOD ORDERABLES Final Resul t Performing Organization Address City/[facility] de Phone Number YAMILEX JHA ([place]) 1 [facility] Department of Laboratories [place] [id number] * ECG 12 lead (04/29/2024 11:29 AM [employer] W[employer] ETCHER STRIPPER) 04/29/2024 11:2 9 AM [employer] ETCHER STRIPPER Narrative [facility] - 05/01/2024 8:40 AM [employer] W[employer] ETCHER STRIPPER Vent Rate: 87 bpm RR Interval: 683 msec MI Interval: 200 msec QRS Duration: 94 msec QT Interval: 343 msec QTC Interval: 388 msec P-R-T [place]: 50 - -4 - 79 degrees IMPRESSION: SINUS RHYTHM SEPTAL MYOCARDIAL INFARCTION , OF INDETERMINATE AGE [40+ ms Q WAVE IN V1/V2] ABNORMAL ECG No change compared to prior EKG Electronically Signed By: Damien Chilel MD [facility] Ruel Fernández MD ECG ORDERABLES Final Result [facility] * Colonoscopy Report -[facility] (04/04/2024 10:21 AM CDT) Anatomical Region Laterality Modality Other us Historical Provider GI PROCEDURE ORDERABLES F inal [...] secondary osteoporosis. ?? Patient takes vitamin-D. ? Transportation Coordinator/Model: Second Sight SL ([id number]/N [id number]) CLINICAL INFORMATION: Current height: ??62 ??inches ? [...] Electronically signed by ??Rebecca Syed M.D. TW: TW D: ??03/23/2024 4:45 PM T: ??03/23/2024 4:45 PM Report ID: [id number] [place] Location: ??[id number] Procedure Note Rebecca Syed MD - 03/23/2024 EXAM DESCRIPTION: DEXA AXIAL SKELETON BONE DENSITY 1 OR MORE SITES REASON FOR STUDY: 74 y/o year old F with given history of: Post menopausal status. History prior fracture and secondary osteoporosis. Patient takes vitamin-D. Transportation Coordinator/Model: [employer] Discovery SL ([id number]/N [id number]) CLINICAL INFORMATION: Current height: 62 inches Maximum [...] Rebecca Syed M.D. TW: TW Report ID: [id number] [place] Location: [place] [address] Mer Simpson NP IMG DXA PROCEDURES Final R esult * (ABNORMAL) Albumin Creatinine Ratio, Urine (02/14/2024 11:16 AM CDT) [facility] Albumin Ur 59.2 mg/L Comment: Interpretive Data No reference range established. Current interpretive data was last revised 2018. Testing performed by: [facility], [address] [place] [address], [place]., [address] Creatinine Ur 187.7 mg/dL YAMILEX JHA (KARIME) Comment: Interpretive Data No reference range established. Current interpretive data was last revised 2018. Testing performed by: [facility], [address] [place] [address]., [address] Albumin Creatinine Ratio, Ur 32(H) 1 - 29 mg/g YAMILEX JHA (KARIME) Comment:Testing performed by : [facility], [address] [place] [address]., [address] Urine 02/14/2024 11:1 6 AM CDT 02/14/2024 6:30 PM CDT us Mer Simpson NP LAB URINE ORDERABLES Final Result YAMILEX JHA (KARIME) 1 [facility] [place] [address] * (ABNORMAL) Lipid panel (02/14/2024 11:16 AM [...] last revised on 2018. Testing performed by: [facility], [address] [place] [address], [place]., [address] Triglycerides 175(H) <=149 mg/dL YAMILEX JHA (KARIME) Comment: Interpretive Data [...] last revised on 2018. Testing performed by: [address] [address] HDL 34(L) >=40 mg/dL YAMILEX JHA (KARIME) Comment: Interpretive Data [...] last revised on 2018. Testing performed by: [facility], [address] [place] [address]., [address] LDL, calculated 74 <=129 mg/dL YAMILEX JHA [...] last revised on 2024. Testing performed by: [address] [address] Non-HDL Cholesterol 104 mg/dL YAMILEX JHA (KARIME) [...] last revised on 2018. Testing performed by: [facility], [address] [place] [address]., [address] Chol/HDL ratio 4 REJI JHA (KARIME) Comment:Testing performed by : [facility], [address] [place] [address]., [address] Blood 02/14/2024 11:1 6 AM CDT 02/14/2024 6:30 PM CDT Mer Simpson NP LAB BLOOD ORDERABLES Final Result YAMILEX JHA (KARIME) 1 [facility] [place] [address] * DIABETES EYE EXAM (10/19/2023) SCRIBED DIABETIC DILATED EYE EXAM Normal Historical Provider MD HEALTH MAINTENANCE Final Result * Screening Mammogram Bilateral W Philipp (04/16/2023 12:56 PM SEMICONDUCTOR WAFERS ETCHER STRIPPER) Anatomical Region Laterality Modality Breast Bilateral Mammography 04/28/2023 2:18 PM [employer] ETCH[employer] STRIPPER Impressions 04/28/2023 2:18 PM [employer] ETCH[employer] STRIPPER There is no mammographic evidence of malignancy. A 1 year screening mammogram is recommended. BI-RADS: 1 - Negative. The patient has been or will be contacted. The patient will be entered into a reminder system with a target due date of 1 year for her next mammogram. Electronically signed by: Jaida Rothman M.D. 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
--- OUTSIDE RECORDS SUMMARY | 2024-07-07 11:43 | XMS_ITS | Referral Summary ---
Author Organization [facility] [employer] Address [address] [place] [address] Care Team Providers Care Pelletising Extruder Operator Name Role Phone Júnior Puente MD Primary Care Provider [phone] Source Comments [facility] [employer],non-owned Affiliates and Associated Physician Practices is amultiple site organization consisting of ambulatory clinics and hospital sitesin [place], [place], [place] and [place]. This disclosure is being madepursuant to the Care Everywhere program and may not contain all information available regarding this patient. Last updated 18.[employer] Allergies No known active allergies Medications * [...] Comments Blood Pressure 118/58 07/23/2020 11:30 AM STATISTICAL CONSULTANT Pulse 74 07/23/2020 11:30 AM STATISTICAL CONSULTANT Temperature 36.5 ??C (97.7 ??F) 07/23/2020 10:[address] Respiratory Rate 6 07/23/2020 11:30 AM STATISTICAL CONSULTANT Oxygen Saturation 94% 07/23/2020 11:30 AM STATISTICAL CONSULTANT Inhaled Oxygen Concentration - - Weight 70.8 kg (156 lb) 07/23/2020 8:34 AM STATISTICAL CONSULTANT Height 157.5 cm (5' 2 ) 07/23/2020 8:34 AM STATISTICAL CONSULTANT Body Mass Index 28.53 07/23/2020 8:34 AM STATISTICAL CONSULTANT Functional Status Functional Status Response Date of Assess ment Is person deaf or have serious hearing difficult y? No 07/23/2020 Is person blind or have serious difficulty seein g? No 07/23/2020 Does person have serious dif ficulty walking/climbing stairs? No 07/23/2020 Does person have difficulty dressing/bathing? No 07/23/2020 Does person have difficulty doing errands alone? No 07/23/2020 Plan of Treatment Not on file Procedures Procedure Name Priority Date/Time Associated Diagnosis Comments BASIC METABOLIC PANEL (CALCIUM TOTAL) STAT 07/23/2020 8:14 AM STATISTICAL CONSULTANT Preop examination HEMOGLOBIN A1C Routine 01/12/2013 2:30 AM CDT from Last 3 Months or Most Recently Relevant to Health Maintenance Results * (ABNORMAL) BASIC METABOLIC PANEL (CALCIUM TOTAL) (07/23/2020 8:14 AM STATISTICAL CONSULTANT) BUN 13 7 - 26 mg/dL 07/23/2020 8:48 AM [facility] Creatinine 0.7 0.6 - 1.2 mg/dL 07/23/2020 8:48 AM [facility] Sodium 141 136 - 145 mmol/L 07/23/2020 8:48 AM [facility] Potassium 3.3(L) 3.5 - 4.5 mmol/L 07/23/2020 8:48 AM [facility] Chloride 106 98 - 107 mmol/L 07/23/2020 8:48 AM [facility] CO2 24 22 - 29 mmol/L 07/23/2020 8:48 AM [facility] Glucose 167(H) 70 - 115 mg/dL 07/23/2020 8:48 AM [facility] Calcium 8.5 8.4 - 10.2 mg/dL 07/23/2020 8:48 AM [facility] Anion Gap 14 8 - 18 07/23/2020 8:48 AM [facility] BUN/Creatinine Ratio 19 7 - 23 07/23/2020 8:48 AM STATISTICAL CONSULTANT [facility] Osmolality Calculated 296 270 - 300 mOsm/kg 07/23/2020 8:48 AM [facility] eGFR >60 >60 mL/min/1.7 3 m2 07/23/2020 8:48 AM [facility] Blood BLOOD SPECIMEN / Unknown Venipuncture / Unknown 07/23/2020 8:14 AM STATISTICAL CONSULTANT 07/23/2020 8:18 AM STATISTICAL CONSULTANT Rod Olivas MD LAB - CHEMISTRY [facility] [address] [place] [address], [facility] [phone] * (ABNORMAL) HEMOGLOBIN A1C (01/12/2013 2:30 AM CDT) Hemoglobin A1c 7.1(H) 4.4 - 6.3 % [facility] Estimated Average Glucose 157 mg/dL [facility] Blood specimen (specimen) 01/12/2013 2:30 AM CDT 01/12/2013 2:55 AM CDT Arturo Ernst MD LAB - CHEMISTRY [facility] [address] [place], [place] [id number] [place] [address] from Last 3 Months or Most Recently Relevant to Health Maintenance Care Teams Pelletising Extruder Operator Relationship Specialty Start Date End Date Júnior Puente MD [address] [place], [place] [id number] PCP - General 03/02/14
--- OUTSIDE RECORDS SUMMARY | 2024-07-07 11:43 | XMS_ITS | CONTINUITY OF CARE DOCUMENT ---
Author Name taya opalbacilio Address Unknown Organization [facility] Address [address] [place] [address] Phone [phone] Care Team Providers Care Pipe Puller Name Role Phone Zachary Allan MD Unavailable [phone] BEE FRAZIER MD Unavailable [phone] BEE FRAZIER MD Unavailable [phone] PROBLEMS Condition Status Date Provider Notes Cardiology examination active Zachary Allan MD Family History of CVA or Stroke: active Tristan Allan MD HTN essential active Zachary Allan MD Carotid artery disease active Zachary Allan MD CVA active Zachary Allan MD PVC's active Zachary Allan MD Hyperlipidemia active Zachary Allan MD Diabetes mellitus, Type II active Zachary beck MD Mesenteric artery stenosis active Zachary beck MD Renal artery stenosis completed - Zachary Allan MD Abdominal pain active Zachary Allan MD Tobacco use, quit 15 years ago active Zachary Allan MD Leg pain active Zachary Allan MD Family History of CVA or Stroke: active Tristan Allan MD ENCOUNTERS Date Type Provider Location Encounter Diag nosis - In-person encounter Office Visit Zachary Allan MD [facility] - In-person encounter Office Visit Zachary Allan MD [facility] Renal artery stenosis - In-person encounter Office Visit Zachary Allan MD [facility] Cardiology examination - In-person encounter Office Visit Zachary Allan MD [facility] - In-person encounter Office Visit Zachary Allan MD [facility] - In-person encounter Office Visit Zachary Allan MD [facility] Cardiology examinationFamily History of CVA or Stroke:Family History of CVA or Stroke:HTN essentialCarotid artery diseaseCVAPVC'sHyperlipi demiaDiabetes mellitus, Type IIMesenteric artery stenosisAbdominal painTobacco use, quit 15 years agoLeg pain VITAL SIGNS Date Observation Value Provider Body Mass Index (Ratio) 29.81 kg/m2 Shannan Allan MD blood pressure, diastolic 76 mm[Hg] Joseph Luciano RN blood pressure, systolic 146 mm[Hg] Clarisa Luciano RN oxygen saturation, oximetry 99 % Clarisa Luciano RN respiratory rate E&M 20 /min Clarisa claudio RN pulse rate 80 /min Clarisa Luciano RN weight E&M 163 [lb_av] Clarisa Luciano RN Body Mass Index (Ratio) 27.43 kg/m2 Shannan Allan MD blood pressure, cuff size regular Ke rri Samir blood pressure, diastolic 63 mm[Hg] Ke rri Samir blood pressure, systolic 129 mm[Hg] Agapito Dawson oxygen saturation, oximetry 99 % Sandra Dawson respiratory rate E&M 16 /min Sandra gomeznieves pulse rate 95 /min Sandra Robles lder weight E&M 150 [lb_av] Sandra Robles lder height E&M 62 [in_i] Sandra Robles lder Body Mass Index (Ratio) 27.80 kg/m2 Shannan Allan MD blood pressure, diastolic 50 mm[Hg] Li [facility]ic blood pressure, systolic 124 mm[Hg] Nannette [facility]Logic blood pressure, diastolic 50 mm[Hg] Sa ra Xie blood pressure, systolic 124 mm[Hg] Hans a Xie oxygen saturation, oximetry 98 % Doris Xie respiratory rate E&M 18 /min Doris Si ms pulse rate 70 /min Doris Xie weight E&M 152 [lb_av] Doris Xie blood pressure, cuff size regular Sa ra Xie height E&M 62 [in_i] Doris Xie Body Mass Index (Ratio) 27.43 kg/m2 Shannan Allan MD blood pressure, cuff size regular Kr isty Norberto blood pressure, diastolic 72 mm[Hg] Kr isty [place] blood pressure, systolic 114 mm[Hg] Kri sty Norberto pulse rate 92 /min Yola [place] oxygen saturation, oximetry 98 % Yola [place] respiratory rate E&M 19 /min Yola [place] weight E&M 150 [lb_av] Yola [place] height E&M 62 [in_i] Yola [place] Body Mass Index (Ratio) 28.35 kg/m2 Shannan Allan MD oxygen saturation, oximetry 98 % Olenastity Lisa blood pressure, diastolic 84 mm[Hg] Ch astity Lisa blood pressure, systolic 137 mm[Hg] Olena stity Lisa pulse rate 89 /min Chastity Lisa respiratory rate E&M 16 /min Olenastit y Lisa weight E&M 155 [lb_av] [facility] 62 [[facility]_i[facility] (Ratio) 27.98 kg/m2 Shannan Allan MD pulse rate 62 /min Gisselle tello blood pressure, cuff size regular Jani Solares blood pressure, diastolic 70 mm[Hg] Jani Solares blood pressure, systolic 142 mm[Hg] Dona Solares oxygen saturation, oximetry 96 % Gisselle Solares respiratory rate E&M 16 /min Gisselle Solares weight E&M 153 [lb_av] Gisselle Wright l height E&M 62 [in_i] Gisselle Ramosbel l ALLERGIES No Known Drug Allergies RESULTS Date Observation Value Provider Reference Range Interpretation Location lipoprotein, beta, serum, point, quantitative, calculated 76 mg/dL [facility] 0-99 7 HDL cholesterol, serum 40 mg/dL [facility] >39 7 triglyceride, serum, random 247 mg/dL [facility] 0-149 High cholesterol, serum 157 mg/dL [facility] 308-793 7601/05/0 7 calcium, serum 9.6 mg/dL [facility] 8.7-10.3 7 carbon dioxide, venous blood 24 mmol/L [facility] 20-29 7 chloride, serum 103 mmol/L [facility] 96-106 7 sodium, serum 144 mmol/L [facility] 372-194 8923/05/0 7 urea nitrogen/creatinin e ratio, serum 29 [facility] 12-28 High 7 eGFR if 80 mL/min/{1. 73_m2} [facility] >59 7 eGFR if not 70 mL/min/{1. 73_m2} [facility] >59 7 creatinine, serum 0.86 mg/dL [facility] 0.57-1.00 7 urea nitrogen, blood 25 mg/dL [facility] 8-27 7 prothrombin time (patient) 10.2 s [facility] 9.1-12.0 7 international normalized ratio (INR) 1.0 [facility] 0.9-1.2 7 basophil count, absolute 0.0 x10E3/uL [facility] 0.0-0.2 Eosinophil Absolute Count 0.1 X10E3/UL [facility] 0.0-0.4 7 monocyte count, blood, automated 0.6 X10E3/UL [facility] 0.1-0.9 7 lymphocyte count, blood, automated 1.7 X10E3/UL [facility] 0.7-3.1 7 Absolute Neutrophils 4.7 X10E3/UL [facility] 1.4-7.0 7 basophils as percent of blood leukocytes 0 % [facility] Not Estab. 7 eosinophils as percent of blood leukocytes 1 % [facility] Not Estab. 7 monocytes as percent of blood leukocytes 8 % [facility] Not Estab. 7 lymphocytes as percent of blood leukocytes 24 % [facility] Not Estab. 7 neutrophils as percent of blood leukocytes 67 % [facility] Not Estab. 7 platelet count 195 X10E3/UL [facility] 933-303 4233/05/0 7 red blood cell distribution width 14.3 % [facility] 11.7-15.4 7 mean corpuscular hemoglobin concentration, RBC 34.2 G/DL [facility] 31.5-35.7 7 mean corpuscular hemoglobin, RBC 30.2 pg [facility] 26.6-33.0 7 mean corpuscular volume, RBC 88 fL [facility] 79-97 7 hematocrit, blood 45.6 % [facility] 34.0-46.6 7 hemoglobin, blood 15.6 g/dL [facility] 11.1-15.9 7 erythrocyte (RBC) count 5.17 X10E6/UL [facility] 3.77-5.28 7 leukocyte count, blood 7.2 X10E3/UL [facility] 3.4-10.8 HISTORY OF MEDICATION USE Medication Status Instructions Dates Provider Indications Com ments oxybutynin chloride 10 mg tablet extended release 24hr active Duran Bhat NP gabapentin 300 mg capsule active Duran Bhat NP lisinopril 40 mg tablet active TAKE 1 TABLET BY MOUTH EVERY DAY Duran Bhat NP donepezil 10 mg tablet active 1 tablet by mouth once a day Duran Bhat NP rosuvastatin 40 mg tablet active TAKE 1 TABLET BY MOUTH DAILY Duran Bhat NP aspirin 81 mg tablet,delayed release (DR/EC) active once a day Gisselle Solares quinapril 5 mg tablet completed once a day - Duran Bhat NP #90, 90 days supply, Filled 07/07/2020 gabapentin 600 mg tablet active Take 1 tablet by mouth three times a day Gisselle Solares #540, 90 days supply, Filled 07/01/2020 Tradjenta 5 mg tablet active once a day Gisselle Solares #90, 90 days supply, Filled 07/19/2020 duloxetine 60 mg capsule,delayed release(DR/EC) active once a day Gisselle Solares #90, 90 days supply, Filled 07/31/2020 buspirone 7.5 mg tablet active Take 1 tablet once a day Gisselle Solares #180, 90 days supply, Filled 08/05/2020 alprazolam 0.5 mg tablet active Take 1 tablet by mouth every night as needed Gisselle Solares #30, 30 days supply, Prescribed by RUDDY ARMSTRONG, Filled 08/05/2020 BYDUREON 2 MG SUBCUTANEOUS PEN-INJECTOR completed INJECT 2 MG BY SUBCUTANEOUS ROUTE EVERY 7 DAYS. - Olenastity Lisa #4, 28 days supply, Prescribed by RUDDY ARMSTRONG, Filled 08/15/2020 Ozempic pen injector active Take 2 mg subcutaneously once a week Duran Bhat NP #4.5, 90 days supply, Prescribed by RUDDY ARMSTRONG, Filled 08/27/2020 clopidogrel 75 mg tablet active tablet by mouth Gisselle Solares #90, 90 days supply, Filled 08/28/2020 SULFAMETHOXAZOL E-TRIMETHOPRIM 800-160 MG ORAL TABLET completed TAKE 1 TABLET BY MOUTH TWICE A DAY FOR 10 DAYS - Meghana Diazue #20, 10 days supply, Prescribed by RUDDY ARMSTRONG, Filled 09/05/2020 fluoxetine 20 mg capsule active Take 1 tablet once a day Gisselle Solares #90, 90 days supply, Filled 09/05/2020 ondansetron 4 mg tablet,disinteg rating completed tablet by mouth as needed - Duran Bhat NP #10, 3 days supply, Filled 09/12/2020 SOCIAL HISTORY Date Observation Value Provider personal history of marijuana use no Duran Bhat NP drug use no Duran Bhat NP alcohol use, average drinks per day social Duran Bhat NP alcohol use yes Duran Bhat NP smoking history, tot al pack/day 1 PPD Duran Bhat NP cigarette use yes Duran Bhat NP smoking status Former smoker Duran lindsay NP social history E&M S moking History: Regla jimenez is a former smoker. Zachary Allan MD social history reviewed E&M revi ewed - no changes required Zachary Allan MD smoking history, tot al pack/day 1 PPD Sandra Senanfelder cigarette use yes Sandra Senanf elder smoking status Former smoker Sandra Sena nfelder smoking history, tot al pack/day 1 PPD Zachary Allan MD cigarette use yes Zachary Riggins smoking status Former smoker Zachary Allan MD social history E&M Smoking Histo ry: Regla jimenez is a former smoker. Zachary Allan MD social history reviewed E&M revi ewed - no changes required Zachary Allan MD smoking status Former smoker Zachary Allan MD social history reviewed E&M revi ewed - no changes required Zachary Allan MD social history E&M S moking History: Regla jimenez is a former smoker. Zachary Allan MD smoking history, tot al pack/day 1 PPD Yola Norberto cigarette use yes Yola Thornton number of grandchildren Zachary Allan MD U dioni Allan MD social history reviewed E&M revi ewed - no changes required Zachary Allan MD smoking history, tot al pack/day 1 PPD Chastity Lisa cigarette use yes Chastity Lisa smoking status Former smoker Chastity Hog ue social history E&M S moking History: Regla jimenez is a former smoker. Zachary Allan MD social history reviewed E&M revi ewed - no changes required Zachary Allan MD smoking history, tot al pack/day 1 PPD Gisselle Beck cigarette use yes Gisselle barriga smoking status Former smoker Gisselle gongora FAMILY HISTORY Family Member Condition Full Sister Family History of CV A or Stroke: Father Family History of Co ronary Artery Disease: Mother Family History of Di abetes: Mother Family History of CV A or Stroke: INSURANCE PROVIDERS Payer name Policy type / Coverage type Brandin red republican [place] B Medicare [id number] [employer] [id number] ADVANCE DIRECTIVES Name Date DISCUSSED - NO DECISION MADE TREATMENT PLAN Date Name Performer [id number],S, H er updated medication list for this problem includes: Rosuvastatin 40 Mg Tablet (Rosuvastatin) Zachary Allan MD [id number],B,I s very good. No evidence of renal artery stenosis from the renal artery scan. BP today: 129/63 P rior BP: 124/50 (11/06/2021) Labs Reviewed: C reat: 0.86 (10/11/2020) C hol: 157 (10/11/2020) HDL: 40 (10/11/2020) Her updated medication list for this problem includes: Aspirin 81 Mg Tablet,delayed Release (dr/ec) (Aspirin) ..... Once a day Quinapril 5 Mg Tablet (Quinapril) ..... Once a day Zachary Allan MD [id number],C,N o evidence of renal artery stenosis from the renal artery scan. Zachary Allan MD [id number],S,P er PCP H er updated medication list for this problem includes: Tradjenta 5 Mg Tablet (Linagliptin) ..... Once a day Aspirin 81 Mg Tablet,delayed Release (dr/ec) (Aspirin) ..... Once a day Quinapril 5 Mg Tablet (Quinapril) ..... Once a day Ozempic 0.25 Mg Or 0.5 Mg(2 Mg/1.5 Ml) Pen Injector (Semaglutide) ..... Take 0.5 mg subcutaneously once a week Zachary Allan MD [id number],B,T his is better because she had a knee replacement which she is getting used to. Zachary Allan MD [id number],C, H er updated medication list for this problem includes: Rosuvastatin 40 Mg Tablet (Rosuvastatin) Zachary Allan MD [id number],C,Per Dr. Armstrong. Zachary Allan MD [id number],C,Not significa nt. Zachary Allan MD [id number],S,N o indication to intervene. Continue current medications. Zachary Allan MD Cardiology: s /p remote stenting. W ill check carotid duplex. Duran hBat NP Cardiology: S ymptoms at baseline Duran Bhat NP Cardiology: O n Ozempic Her updated medication list for this problem includes: Lisinopril 40 Mg Tablet (Lisinopril) ..... Take 1 tablet by mouth every day Tradjenta 5 Mg Tablet (Linagliptin) ..... Once a day Aspirin 81 Mg Tablet,delayed Release (dr/ec) (Aspirin) ..... Once a day Duran Bhat NP Cardiology: No evidence of renal artery stenosis from the renal artery scan. B P well controlled at home BP today: 146/76 P rior BP: 129/63 (06/12/2022) T he following medications were removed from the medication list: Quinapril 5 Mg Tablet (Quinapril) ..... Once a day Her updated medication list for this problem includes: Lisinopril 40 Mg Tablet (Lisinopril) ..... Take 1 tablet by mouth every day Aspirin 81 Mg Tablet,delayed Release (dr/ec) (Aspirin) ..... Once a day Duran Bhat NP Cardiology: L abs per PCP H er updated medication list for this problem includes: Rosuvastatin 40 Mg Tablet (Rosuvastatin) ..... Take 1 tablet by mouth daily Duran Bhat SARBJIT Cardiology: H er updated medication list for this problem includes: Rosuvastatin 40 Mg Tablet (Rosuvastatin) Zachary Allan MD Cardiology:Is very g ood. No evidence of renal artery stenosis from the renal artery scan. BP today: 129/63 P rior BP: 124/50 (11/06/2021) Labs Reviewed: C reat: 0.86 (10/11/2020) C hol: 157 (10/11/2020) HDL: 40 (10/11/2020) Her updated medication list for this problem includes: Aspirin 81 Mg Tablet,delayed Release (dr/ec) (Aspirin) ..... Once a day Quinapril 5 Mg Tablet (Quinapril) ..... Once a day Zachary Allan MD Cardiology:No eviden ce of renal artery stenosis from the renal artery scan. Zachary Allan MD Cardiology:Per PCP H er updated medication list for this problem includes: Tradjenta 5 Mg Tablet (Linagliptin) ..... Once a day Aspirin 81 Mg Tablet,delayed Release (dr/ec) (Aspirin) ..... Once a day Quinapril 5 Mg Tablet (Quinapril) ..... Once a day Ozempic 0.25 Mg Or 0.5 Mg(2 Mg/1.5 Ml) Pen Injector (Semaglutide) ..... Take 0.5 mg subcutaneously once a week Zachary Allan MD Cardiology:This is b jose because she had a knee replacement which she is getting used to. Zachary Allan MD Cardiology: H er updated medication list for this problem includes: Rosuvastatin 40 Mg Tablet (Rosuvastatin) Zachary Allan MD Cardiology:Per Dr. Armstrong. Zachary venegas MD Cardiology:Not significant. Shannan Allan MD Cardiology:No indica tion to intervene. Continue current medications. Zachary Allan MD Cardiology:70% left renal artery stenosis C reatinine 0.86. Zachary Allan MD Cardiology Zachary Allan MD Cardiology Zachary Allan MD Cardiology: B P today: 114/72 P rior BP: 137/84 (10/10/2020) Labs Reviewed: C reat: 0.86 (10/11/2020) C hol: 157 (10/11/2020) HDL: 40 (10/11/2020) Zachary Allan MD Cardiology:ABIs reve aled good arterial flow. Zachary Allan MD Cardiology: P er Dr. Armstrong Her updated medication list for this problem includes: Jardiance 25 Mg Oral Tablet (Empagliflozin) ..... Daily Ozempic (0.25 or 0.5 Mg/dose) 2 Mg/1.5ml Subcutaneous Solution Pen-injector (Semaglutide) ..... Take 0.5mg sub q weekly Quinapril Hcl 5 Mg Oral Tablet (Quinapril hcl) ..... Daily Aspirin Low Dose 81 Mg Oral Tablet Delayed Release (Aspirin) ..... Daily Tradjenta 5 Mg Oral Tablet (Linagliptin) ..... Daily Bydureon 2 Mg Subcutaneous Pen-injector (Exenatide) ..... Inject 2 mg by subcutaneous route every 7 days. Zachary Allan MD Cardiology Zachary Allan MD Cardiology: B P today: 137/84 P rior BP: 142/70 (09/16/2020) Zachary Allan MD Cardiology: O btain results of CT scan from [facility] Regla barbara has been having abdominal pain and distension that worsens with eating for the past 4-5 months Zachary Allan MD Cardiology:SMA steno sis. I explained to the patient the risks and benefits of doing an angiogram and she was agreeable to proceed. Zachary Allan MD Cardiology New Patie nt :Per Dr. Armstrong Her updated medication list for this problem includes: Jardiance 25 Mg Oral Tablet (Empagliflozin) ..... Daily Ozempic (0.25 or 0.5 Mg/dose) 2 Mg/1.5ml Subcutaneous Solution Pen-injector (Semaglutide) ..... Take 0.5mg sub q weekly Quinapril Hcl 5 Mg Oral Tablet (Quinapril hcl) ..... Daily Aspirin Low Dose 81 Mg Oral Tablet Delayed Release (Aspirin) ..... Daily Tradjenta 5 Mg Oral Tablet (Linagliptin) ..... Daily Bydureon 2 Mg Subcutaneous Pen-injector (Exenatide) ..... Inject 2 mg by subcutaneous route every 7 days. Zachary Allan MD Cardiology Collin Gonzalez nt : B P today: 142/70 Her updated medication list for this problem includes: Quinapril Hcl 5 Mg Oral Tablet (Quinapril hcl) ..... Daily Aspirin Low Dose 81 Mg Oral Tablet Delayed Release (Aspirin) ..... Daily Zachary Allan MD Cardiology New Patiharjinder nt :Patient reports pain with ambulation. Will check an DIAZ and have her f/u s/p testing Zachary Allan MD Cardiology New Lisa nt :Obtain results of CT scan from [facility] Regla atfarhad has been having abdominal pain and distension that worsens with eating for the past 4-5 months Zachary Allan MD Date Name EKG Carotid Duplex Bilat eral Complete Echo Renal Artery Duplex Complete Echo Renal Artery Duplex PROTHROMBIN TIME WIT H INR LIPID PANEL CBC (INCLUDES DIFF/P LT) BASIC METABOLIC PANE L W/EGFR Renal Angio - [facility] Arterial Duplex Bi-L ower EX HISTORY OF PROCEDURES Procedure Date Procedure Name Provider Procedure Notes S tatus EKG Zachary Allan MD completed EKG Zachary Allan MD completed
--- OUTSIDE RECORDS SUMMARY | 2024-07-07 11:43 | XMS_ITS | Continuity of Care Document ---
Author Organization [facility] Address [address] [place] [address] Phone Care Team Providers Care Pediatric Physician Name Role Phone Dumont OD, Maiocl Unavailable Unavailable Procedures Procedure Date CL Replacement - Vistakon Disp W/BW Soft Tax - Medical Eye Exam, New Patient Refraction Advance Directives Directive Yes / No Effective Date File Name No Information Encounters Encounter Description Practice Location Reason(s) For Visit Diagnoses Date Provider Providers Copied on Encounter [facility], [address] [place] [address] [address], [place], [place], [id number], tel:[phone] [facility] No Information Sep-2 8-200 7 Dumont OD Maicol. [address] , [address], [place], [place], [facility], [place]. tel:[phone] [facility], [address] [place] [address] [address], [place], [place], [id number], tel:[phone] [facility] No Information Sep-1 3-200 7 Dumont OD Ma[place]. [address] , [address], [place], [place], [facility], [place]. tel:[phone] Referring Provider: Bharat Gurrola MD F, [address] [facility], [place], [address]. tel:[phone] Family History Family Member Type Diagnosis Age At Onset No Information Payers Payer name Insurance type Covered republican ID Authoriza tion(s) No Information Social History [...]
--- NOTE | 2024-07-07 13:21 | ED_ITS ---
HPI - Nausea/Vomiting/Diarrhea General Chief complaint: Nausea/Vomiting/Diarrhea <Sylvie Moya PA-C - Last Filed: 07/08/24 14:42> Stated complaint: N/V/D, blood in stool <Sylvie Moya PA-C - Last Filed: 07/08/24 14:42> Time Seen by Provider: 07/07/24 13:21 <Sylvie Moya PA-C - Last Filed: 07/08/24 14:42> Focused HPI: This is a 74 year old female that presents to the ER for vomiting, diarrhea. Ongoing since this morning. Reports she has been passing blood in the stool. Reports initially bright red, now becoming more black. She takes clopidogrel. No previous history of GI bleeding. GENERAL: Well-appearing, well-nourished, and in no acute distress. HEAD: Normocephalic, atraumatic. CHEST: Clear to auscultation. ?No respiratory distress. HEART: Regular rate and rhythm.? NEURO: ?Alert and oriented x3. Patient screened in triage and initial orders placed.? ?Additional care and disposition to be based upon?diagnostic testing and treatment. <Sylvie Moya PA-C - Last Filed: 07/08/24 14:42> History of Present Illness HPI Narrative: Agree with the above triage note. Patient states around 7:00 a.m. this morning she began developing nausea, vomiting and diarrhea. She reports diffuse abdominal pain and cramping. Also states she has passed blood several times all having a bowel movement. Denies fever. Denies recent camping or travel, recent surgeries or hospitalizations. She does admit to amoxicillin use 3 weeks ago for a sore throat. Denies hx of IBD. Patient had a colonoscopy on 04/04/2024 which showed multiple diverticula with no active bleeding, single 3 mm polyp, a few small size internal hemorrhoids with no active bleeding. Patient is on Plavix from prior CVA but is otherwise not anticoagulated. She is an insulin-dependent diabetic states her sugars are normally 200 at home. <April Steele PA-C - Last Filed: 07/07/24 19:59> Related Data Home medications: Home Medications ?Medication ?Instructions ?Recorded ?Confirmed ?Last Taken ?Type aspirin 81 mg tablet,delayed 81 mg PO DAILY 10/13/19 07/07/24 07/06/24 History release (Adult Low Dose Aspirin) buspirone 7.5 mg tablet 7.5 mg PO TID 02/02/23 07/07/24 04/03/24 History clopidogrel 75 mg tablet 75 mg PO DAILY 02/02/23 07/07/24 07/06/24 History duloxetine 60 mg capsule,delayed 60 mg PO DAILY 02/02/23 07/07/24 07/06/24 History release insulin aspart U-100 100 unit/mL 8 unit subcut TIDWM 02/02/23 07/07/24 07/06/24 History (3 mL) subcutaneous pen insulin detemir U-100 100 unit/mL 30 unit subcut BID 02/02/23 07/07/24 07/06/24 History (3 mL) subcutaneous pen (Levemir FlexPen) lisinopril 40 mg tablet 40 mg PO DAILY 02/02/23 07/07/24 07/06/24 History semaglutide 1 mg/dose (4 mg/3 mL) 2 mg subcut WEEKLY 02/02/23 07/07/24 06/30/24 History subcutaneous pen injector (Ozempic) alprazolam 0.25 mg tablet 0.25 mg PO TID PRN Anxiety 03/28/24 07/07/24 07/06/24 History biotin 1,000 mcg chewable tablet 1,000 mcg PO DAILY 03/28/24 07/07/24 07/06/24 History cholecalciferol (vitamin D3) 25 25 mcg PO DAILY 03/28/24 07/07/24 07/06/24 History mcg (1,000 unit) tablet (Vitamin D3) donepezil 10 mg tablet 10 mg PO HS 03/28/24 07/07/24 07/06/24 History rosuvastatin 40 mg tablet 40 mg PO DAILY 03/28/24 07/07/24 07/06/24 History ascorbic acid (vitamin C) 100 mg 100 mg PO DAILY 07/07/24 07/07/24 07/06/24 History tablet (Vitamin C) turmeric 400 mg capsule 400 mg PO DAILY 07/07/24 07/07/24 07/06/24 History vitamin B complex 1 tablet PO DAILY 07/07/24 07/07/24 07/06/24 History <Sylvie Moya PA-C - Last Filed: 07/08/24 14:42> Allergies/Adverse reactions: Allergies Allergy/AdvReac Type Severity Reaction Status Date / Time No Known Allergies Allergy Verified 07/07/24 21:20 <Sylvie Moya PA-C - Last Filed: 07/08/24 14:42> Review of Systems 2 Review of Systems: All systems reviewed & are unremarkable except as noted in HPI and below <April Steele PA-C - Last Filed: 07/07/24 19:59> [facility] Past Medical History Medical History: Medical History Diabetes Arthritis IBS (irritable bowel syndrome) Fatigue Colitis Abdominal pain Diarrhea ACL tear Tear of MCL (medial collateral ligament) of knee <Sylvie Moya PA-C - Last Filed: 07/08/24 14:42> Surgical History Surgical History: Surgical History H/O: hysterectomy Total hysterectomy gallbladder removed <Sylvie Moya PA-C - Last Filed: 07/08/24 14:42> Family History Family History: Family History Mother Hypertension Cerebrovascular accident Family history of diabetes mellitus in first degree relative Family history of coronary artery disease Grandparent Family history of lung cancer Family history of coronary artery disease Diabetes mellitus Father Cancer Aplastic anemia Sibling Diabetes mellitus Heart disease Other Family history of arthritis Family history of gout Family history of malignant neoplasm <Sylvie Moya PA-C - Last Filed: 07/08/24 14:42> Social History Social History: Social History Smoking packs per day: 1 Smoking cigarettes per day: 20.0 Years smoked: 45 Smoking pack-years: 45.00 Smoking status: Former smoker Tobacco type: cigarettes Smoking end date: 06/07/99 Alcohol intake: never Alcohol use details: social Substance use: never Substance use type: does not use Do You Feel Safe in your Home?: Yes Lack of Transportation: No Lack of Food: Never True Current Housing: I Have Housing Concerned About Future Housing: No Difficulty Paying Gas/Electric Bills: No Difficulty Paying for Meds: No Currently Unemployed: No Education: High School Diploma/GED Difficulty w/ Childcare or Family Care: No Living arrangements: with family Occupation/Education: retired Gender identity (if verbalized by the patient): Female Spiritual care concerns: No <Sylvie Moya PA-C - Last Filed: 07/08/24 14:42> Exam 2 Narrative: GENERAL: Well-appearing, well-nourished, and in no acute distress. HEAD: Normocephalic, atraumatic. EYES: EOMI. ENT: Nares clear, no rhinorrhea or epistaxis. Mucous membranes moist. NECK: Supple. CHEST: Clear to auscultation. No respiratory distress. HEART: Regular rate and rhythm. No murmur heard. Normal peripheral pulses. ABDOMEN: Normoactive bowel sounds. Abdomen soft with diffuse tenderness. No rebound or rigidity. No CVA tenderness. Rectal exam with gross bright red blood, no melena, no large hemorrhoids, no fissures. Positive Hemoccult EXTREMITIES: Normal range of motion. No edema. SKIN: Warm, dry, no rash. NEURO: No focal deficits. Alert and oriented x3 <April Steele PA-C - Last Filed: 07/07/24 19:59> Course RN AMBULATORY/PA Physician Supervision For this patient encounter, I reviewed the RN AMBULATORY or PA documentation, treatment plan, and medical decision making; and I had [id number] time with this patient. <Blas Shelley MD - Last Filed: 07/07/24 22:57> Vital Signs Vital signs: Vital Signs Temperature 98.2 F 07/07/24 12:08 Pulse Rate 93 07/07/24 12:08 Respiratory Rate 16 07/07/24 12:08 Blood Pressure 159/105 H 07/07/24 12:08 Pulse Oximetry 98 07/07/24 12:08 Temperature 97.4 F L 07/08/24 14:00 Pulse Rate 97 07/08/24 14:00 Respiratory Rate 18 07/08/24 14:00 Blood Pressure 109/74 07/08/24 14:00 Pulse Oximetry 98 07/08/24 14:00 Oxygen Delivery Room Air 07/07/24 22:47 <Sylvie Moya PA-C - Last Filed: 07/08/24 14:42> Vital Signs Temperature 98.2 F 07/07/24 12:08 Pulse Rate 93 07/07/24 12:08 Respiratory Rate 16 07/07/24 12:08 Blood Pressure 159/105 H 07/07/24 12:08 Pulse Oximetry 98 07/07/24 12:08 Temperature 97.4 F L 07/08/24 14:00 Pulse Rate 97 07/08/24 14:00 Respiratory Rate 18 07/08/24 14:00 Blood Pressure 109/74 07/08/24 14:00 Pulse Oximetry 98 07/08/24 14:00 Oxygen Delivery Room Air 07/07/24 22:47 <April Steele PA-C - Last Filed: 07/07/24 19:59> Vital Signs Temperature 98.2 F 07/07/24 12:08 Pulse Rate 93 07/07/24 12:08 Respiratory Rate 16 07/07/24 12:08 Blood Pressure 159/105 H 07/07/24 12:08 Pulse Oximetry 98 07/07/24 12:08 Temperature 97.4 F L 07/08/24 14:00 Pulse Rate 97 07/08/24 14:00 Respiratory Rate 18 07/08/24 14:00 Blood Pressure 109/74 07/08/24 14:00 Pulse Oximetry 98 07/08/24 14:00 Oxygen Delivery Room Air 07/07/24 22:47 <Blas Shelley MD - Last Filed: 07/07/24 22:57> MDM - Nausea/Vomiting/Diarrhea MDM Narrative Medical decision making narrative: 74-year-old female presents to the emergency department for N/V/D and blood in her stools since this morning. Triage vitals with elevated blood pressure, otherwise unremarkable. Patient is afebrile nontoxic appearing and is resting comfortably in exam bed. Exam is significant for the above. Notably bright red blood is visible on rectal exam with a positive Hemoccult. CBC shows a leukocytosis of 12.9 with an elevated hemoglobin of 15.6, likely secondary to dehydration. Chemistries to reveal a bicarb of 21 with an anion gap of 13, BUN of 26 and creatinine 0.72. Her glucose is elevated to 39, however suspect minimally low bicarb and anion gap are secondary to dehydration as opposed to DKA. Will provide a L of fluids and repeat BMP. UA with trace ketones, 2+ glucose, 1+ protein, no UTI. Lipase is normal. CT abdomen pelvis reveals colitis extending from mid transverse to the mid sigmoid colon which could be infectious, inflammatory or ischemic in etiology. Lactic is normal, therefore less likely ischemic. I discussed findings with GI physician, Dr. Martinez who recommends repeat CBC in the a.m., starting Cipro and Flagyl, stool cultures, C diff and white blood cell smear stool. Agrees to consult. Discussed with Margaret YANG, who agrees to admission. While boarding, C diff result came back positive. Discussed results with hospitalist who agrees to fidaxomicin 200 mg b.i.d.. First dose provided in the ED. <April Steele PA-C - Last Filed: 07/07/24 19:59> Lab Data Result diagrams: 07/08/24 12:56 07/07/24 21:02 <Sylvie Moya PA-C - Last Filed: 07/08/24 14:42> Labs: Lab Results 07/07/24 07/07/24 07/07/24 Range/Units 14:44 15:04 16:48 WBC 12.9 H (4.5-10.0) K/mm3 RBC 5.25 (4.2-5.4) M/mm3 Hgb 15.6 H (12.0-15.0) g/dL Hct 47.7 H (37.0-47.0) % MCV 90.9 (80-100) fl MCH 29.7 (26-34) pg MCHC 32.7 (32-36) g/dl RDW 13.4 (11.5-14.5) % Plt Count 193 (150-375) k/mm3 MPV 10.1 (7.4-10.4) fl Immature Gran % (Auto) 0.4 (0-0.5) % Neut % (Auto) 87.1 H (45.5-73.1) % Lymph % (Auto) 8.1 L (18.3-44.2) % Teller % (Auto) 4.0 (2.6-8.5) % Eos % (Auto) 0.2 (0-4.4) % Baso % (Auto) 0.2 (0.2-1.2) % Lymph # (Auto) 1.05 (0.9-3.2) K/mm3 Teller # (Auto) 0.5 (0.1-0.6) K/mm3 Eos # (Auto) 0.0 (0-0.3) K/mm3 Baso # (Auto) 0.0 (0.0-0.1) K/mm3 Abs Immat Gran (auto) 0.05 H (0.00-0.031) K/mm3 Absolute Neuts (auto) 11.3 H (1.3-6.7) K/mm3 Absolute Nucleated RBC 0.000 (0.0-0.012) K/mm3 Nucleated RBC % 0.0 (0.0-0.2) % PT 13.8 (11.1-14.7) Seconds INR 1.0 APTT 25.9 (22.3-36.8) Seconds Sodium 135 L (137-145) mmol/L Potassium 4.2 (3.4-5.0) mmol/L Chloride 101 (98-107) mmol/L Carbon Dioxide 21 L (22-30) mmol/L Anion Gap 13 H (4-12) mmol/L BUN 26 H (7-17) mg/dL Creatinine 0.72 (0.7-1.0) mg/dL Estim Creat Clear Calc 56 ml/min Estimated GFR > 60 (59 - ) Glucose 239 H (65-110) mg/dL Lactic Acid (0.7-2.0) mmol/L Calcium 9.6 (8.4-10.2) mg/dL Total Bilirubin 1.4 H (0.2-1.3) mg/dL AST 25 (14-36) U/L ALT 28 (6-35) U/L Alkaline Phosphatase 94 (38-126) U/L Total Protein 7.0 (6.3-8.2) g/dL Albumin 4.1 (3.5-5.1) g/dL Lipase 79 (23-300) U/L Urine Color Dark yellow (Yellow) Urine Appearance Clear (Clear) Urine pH 5.0 (5.0-9.0) Ur Specific [place] 1.023 (1.001-1.035) Urine Protein 1+ H (Negative) mg/dL Urine Glucose (UA) 2+ H (Negative) mg/dL Urine Ketones Trace H (Negative) mg/dL Ur Blood (Man) Negative (Negative) Urine Nitrate Negative (Negative) Urine Bilirubin Negative (Negative) Urine Urobilinogen 1.0 (<2.0) mg/dL Leukocyte Esterase Rfl Negative (Negative) DELVIN/UL Urine RBC 0-2 (0-2) /hpf Urine WBC 0-5 (0-3) /hpf Ur Squamous Epith Cells None seen (Few) /hpf Urine Bacteria None seen /hpf Urine Casts 0-2 C. difficile (PCR) Positive A* (NEGATIVE) 07/07/24 07/07/24 07/08/24 Range/Units 18:18 21:02 05:55 WBC 11.0 H (4.5-10.0) K/mm3 RBC 4.68 (4.2-5.4) M/mm3 Hgb 14.0 (12.0-15.0) g/dL Hct 43.5 (37.0-47.0) % MCV 92.9 (80-100) fl MCH 29.9 (26-34) pg MCHC 32.2 (32-36) g/dl RDW 13.7 (11.5-14.5) % Plt Count 142 L (150-375) k/mm3 MPV 9.9 (7.4-10.4) fl Immature Gran % (Auto) 0.4 (0-0.5) % Neut % (Auto) 80.8 H (45.5-73.1) % Lymph % (Auto) 11.6 L (18.3-44.2) % Teller % (Auto) 6.3 (2.6-8.5) % Eos % (Auto) 0.6 (0-4.4) % Baso % (Auto) 0.3 (0.2-1.2) % Lymph # (Auto) 1.28 (0.9-3.2) K/mm3 Teller # (Auto) 0.7 H (0.1-0.6) K/mm3 Eos # (Auto) 0.1 (0-0.3) K/mm3 Baso # (Auto) 0.0 (0.0-0.1) K/mm3 Abs Immat Gran (auto) 0.04 H (0.00-0.031) K/mm3 Absolute Neuts (auto) 8.9 H (1.3-6.7) K/mm3 Absolute Nucleated RBC 0.000 (0.0-0.012) K/mm3 Nucleated RBC % 0.0 (0.0-0.2) % PT (11.1-14.7) Seconds INR APTT (22.3-36.8) Seconds Sodium 136 L (137-145) mmol/L Potassium 4.1 (3.4-5.0) mmol/L Chloride 99 (98-107) mmol/L Carbon Dioxide 26 (22-30) mmol/L Anion Gap 11 (4-12) mmol/L BUN 24 H (7-17) mg/dL Creatinine 0.84 (0.7-1.0) mg/dL Estim Creat Clear Calc 49 ml/min Estimated GFR > 60 (59 - ) Glucose 199 H (65-110) mg/dL Lactic Acid 1.4 (0.7-2.0) mmol/L Calcium 9.0 (8.4-10.2) mg/dL Total Bilirubin (0.2-1.3) mg/dL AST (14-36) U/L ALT (6-35) U/L Alkaline Phosphatase (38-126) U/L Total Protein (6.3-8.2) g/dL Albumin (3.5-5.1) g/dL Lipase (23-300) U/L Urine Color (Yellow) Urine Appearance (Clear) Urine pH (5.0-9.0) Ur Specific [place] (1.001-1.035) Urine Protein (Negative) mg/dL Urine Glucose (UA) (Negative) mg/dL Urine Ketones (Negative) mg/dL Ur Blood (Man) (Negative) Urine Nitrate (Negative) Urine Bilirubin (Negative) Urine Urobilinogen (<2.0) mg/dL Leukocyte Esterase Rfl (Negative) DELVIN/UL Urine RBC (0-2) /hpf Urine WBC (0-3) /hpf Ur Squamous Epith Cells (Few) /hpf Urine Bacteria /hpf Urine Casts C. difficile (PCR) (NEGATIVE) <Sylvie Moya PA-C - Last Filed: 07/08/24 14:42> Lab Results 07/07/24 07/07/24 07/07/24 Range/Units 14:44 15:04 16:48 WBC 12.9 H (4.5-10.0) K/mm3 RBC 5.25 (4.2-5.4) M/mm3 Hgb 15.6 H (12.0-15.0) g/dL Hct 47.7 H (37.0-47.0) % MCV 90.9 (80-100) fl MCH 29.7 (26-34) pg MCHC 32.7 (32-36) g/dl RDW 13.4 (11.5-14.5) % Plt Count 193 (150-375) k/mm3 MPV 10.1 (7.4-10.4) fl Immature Gran % (Auto) 0.4 (0-0.5) % Neut % (Auto) 87.1 H (45.5-73.1) % Lymph % (Auto) 8.1 L (18.3-44.2) % Teller % (Auto) 4.0 (2.6-8.5) % Eos % (Auto) 0.2 (0-4.4) % Baso % (Auto) 0.2 (0.2-1.2) % Lymph # (Auto) 1.05 (0.9-3.2) K/mm3 Teller # (Auto) 0.5 (0.1-0.6) K/mm3 Eos # (Auto) 0.0 (0-0.3) K/mm3 Baso # (Auto) 0.0 (0.0-0.1) K/mm3 Abs Immat Gran (auto) 0.05 H (0.00-0.031) K/mm3 Absolute Neuts (auto) 11.3 H (1.3-6.7) K/mm3 Absolute Nucleated RBC 0.000 (0.0-0.012) K/mm3 Nucleated RBC % 0.0 (0.0-0.2) % PT 13.8 (11.1-14.7) Seconds INR 1.0 APTT 25.9 (22.3-36.8) Seconds Sodium 135 L (137-145) mmol/L Potassium 4.2 (3.4-5.0) mmol/L Chloride 101 (98-107) mmol/L Carbon Dioxide 21 L (22-30) mmol/L Anion Gap 13 H (4-12) mmol/L BUN 26 H (7-17) mg/dL Creatinine 0.72 (0.7-1.0) mg/dL Estim Creat Clear Calc 56 ml/min Estimated GFR > 60 (59 - ) Glucose 239 H (65-110) mg/dL Lactic Acid (0.7-2.0) mmol/L Calcium 9.6 (8.4-10.2) mg/dL Total Bilirubin 1.4 H (0.2-1.3) mg/dL AST 25 (14-36) U/L ALT 28 (6-35) U/L Alkaline Phosphatase 94 (38-126) U/L Total Protein 7.0 (6.3-8.2) g/dL Albumin 4.1 (3.5-5.1) g/dL Lipase 79 (23-300) U/L Urine Color Dark yellow (Yellow) Urine Appearance Clear (Clear) Urine pH 5.0 (5.0-9.0) Ur Specific [place] 1.023 (1.001-1.035) Urine Protein 1+ H (Negative) mg/dL Urine Glucose (UA) 2+ H (Negative) mg/dL Urine Ketones Trace H (Negative) mg/dL Ur Blood (Man) Negative (Negative) Urine Nitrate Negative (Negative) Urine Bilirubin Negative (Negative) Urine Urobilinogen 1.0 (<2.0) mg/dL Leukocyte Esterase Rfl Negative (Negative) DELVIN/UL Urine RBC 0-2 (0-2) /hpf Urine WBC 0-5 (0-3) /hpf Ur Squamous Epith Cells None seen (Few) /hpf Urine Bacteria None seen /hpf Urine Casts 0-2 C. difficile (PCR) Positive A* (NEGATIVE) 07/07/24 07/07/24 07/08/24 Range/Units 18:18 21:02 05:55 WBC 11.0 H (4.5-10.0) K/mm3 RBC 4.68 (4.2-5.4) M/mm3 Hgb 14.0 (12.0-15.0) g/dL Hct 43.5 (37.0-47.0) % MCV 92.9 (80-100) fl MCH 29.9 (26-34) pg MCHC 32.2 (32-36) g/dl RDW 13.7 (11.5-14.5) % Plt Count 142 L (150-375) k/mm3 MPV 9.9 (7.4-10.4) fl Immature Gran % (Auto) 0.4 (0-0.5) % Neut % (Auto) 80.8 H (45.5-73.1) % Lymph % (Auto) 11.6 L (18.3-44.2) % Teller % (Auto) 6.3 (2.6-8.5) % Eos % (Auto) 0.6 (0-4.4) % Baso % (Auto) 0.3 (0.2-1.2) % Lymph # (Auto) 1.28 (0.9-3.2) K/mm3 Teller # (Auto) 0.7 H (0.1-0.6) K/mm3 Eos # (Auto) 0.1 (0-0.3) K/mm3 Baso # (Auto) 0.0 (0.0-0.1) K/mm3 Abs Immat Gran (auto) 0.04 H (0.00-0.031) K/mm3 Absolute Neuts (auto) 8.9 H (1.3-6.7) K/mm3 Absolute Nucleated RBC 0.000 (0.0-0.012) K/mm3 Nucleated RBC % 0.0 (0.0-0.2) % PT (11.1-14.7) Seconds INR APTT (22.3-36.8) Seconds Sodium 136 L (137-145) mmol/L Potassium 4.1 (3.4-5.0) mmol/L Chloride 99 (98-107) mmol/L Carbon Dioxide 26 (22-30) mmol/L Anion Gap 11 (4-12) mmol/L BUN 24 H (7-17) mg/dL Creatinine 0.84 (0.7-1.0) mg/dL Estim Creat Clear Calc 49 ml/min Estimated GFR > 60 (59 - ) Glucose 199 H (65-110) mg/dL Lactic Acid 1.4 (0.7-2.0) mmol/L Calcium 9.0 (8.4-10.2) mg/dL Total Bilirubin (0.2-1.3) mg/dL AST (14-36) U/L ALT (6-35) U/L Alkaline Phosphatase (38-126) U/L Total Protein (6.3-8.2) g/dL Albumin (3.5-5.1) g/dL Lipase (23-300) U/L Urine Color (Yellow) Urine Appearance (Clear) Urine pH (5.0-9.0) Ur Specific [place] (1.001-1.035) Urine Protein (Negative) mg/dL Urine Glucose (UA) (Negative) mg/dL Urine Ketones (Negative) mg/dL Ur Blood (Man) (Negative) Urine Nitrate (Negative) Urine Bilirubin (Negative) Urine Urobilinogen (<2.0) mg/dL Leukocyte Esterase Rfl (Negative) DELVIN/UL Urine RBC (0-2) /hpf Urine WBC (0-3) /hpf Ur Squamous Epith Cells (Few) /hpf Urine Bacteria /hpf Urine Casts C. difficile (PCR) (NEGATIVE) <April Steele PA-C - Last Filed: 07/07/24 19:59> Lab Results 07/07/24 07/07/24 07/07/24 Range/Units 14:44 15:04 16:48 WBC 12.9 H (4.5-10.0) K/mm3 RBC 5.25 (4.2-5.4) M/mm3 Hgb 15.6 H (12.0-15.0) g/dL Hct 47.7 H (37.0-47.0) % MCV 90.9 (80-100) fl MCH 29.7 (26-34) pg MCHC 32.7 (32-36) g/dl RDW 13.4 (11.5-14.5) % Plt Count 193 (150-375) k/mm3 MPV 10.1 (7.4-10.4) fl Immature Gran % (Auto) 0.4 (0-0.5) % Neut % (Auto) 87.1 H (45.5-73.1) % Lymph % (Auto) 8.1 L (18.3-44.2) % Teller % (Auto) 4.0 (2.6-8.5) % Eos % (Auto) 0.2 (0-4.4) % Baso % (Auto) 0.2 (0.2-1.2) % Lymph # (Auto) 1.05 (0.9-3.2) K/mm3 Teller # (Auto) 0.5 (0.1-0.6) K/mm3 Eos # (Auto) 0.0 (0-0.3) K/mm3 Baso # (Auto) 0.0 (0.0-0.1) K/mm3 Abs Immat Gran (auto) 0.05 H (0.00-0.031) K/mm3 Absolute Neuts (auto) 11.3 H (1.3-6.7) K/mm3 Absolute Nucleated RBC 0.000 (0.0-0.012) K/mm3 Nucleated RBC % 0.0 (0.0-0.2) % PT 13.8 (11.1-14.7) Seconds INR 1.0 APTT 25.9 (22.3-36.8) Seconds Sodium 135 L (137-145) mmol/L Potassium 4.2 (3.4-5.0) mmol/L Chloride 101 (98-107) mmol/L Carbon Dioxide 21 L (22-30) mmol/L Anion Gap 13 H (4-12) mmol/L BUN 26 H (7-17) mg/dL Creatinine 0.72 (0.7-1.0) mg/dL Estim Creat Clear Calc 56 ml/min Estimated GFR > 60 (59 - ) Glucose 239 H (65-110) mg/dL Lactic Acid (0.7-2.0) mmol/L Calcium 9.6 (8.4-10.2) mg/dL Total Bilirubin 1.4 H (0.2-1.3) mg/dL AST 25 (14-36) U/L ALT 28 (6-35) U/L Alkaline Phosphatase 94 (38-126) U/L Total Protein 7.0 (6.3-8.2) g/dL Albumin 4.1 (3.5-5.1) g/dL Lipase 79 (23-300) U/L Urine Color Dark yellow (Yellow) Urine Appearance Clear (Clear) Urine pH 5.0 (5.0-9.0) Ur Specific [place] 1.023 (1.001-1.035) Urine Protein 1+ H (Negative) mg/dL Urine Glucose (UA) 2+ H (Negative) mg/dL Urine Ketones Trace H (Negative) mg/dL Ur Blood (Man) Negative (Negative) Urine Nitrate Negative (Negative) Urine Bilirubin Negative (Negative) Urine Urobilinogen 1.0 (<2.0) mg/dL Leukocyte Esterase Rfl Negative (Negative) DELVIN/UL Urine RBC 0-2 (0-2) /hpf Urine WBC 0-5 (0-3) /hpf Ur Squamous Epith Cells None seen (Few) /hpf Urine Bacteria None seen /hpf Urine Casts 0-2 C. difficile (PCR) Positive A* (NEGATIVE) 07/07/24 07/07/24 07/08/24 Range/Units 18:18 21:02 05:55 WBC 11.0 H (4.5-10.0) K/mm3 RBC 4.68 (4.2-5.4) M/mm3 Hgb 14.0 (12.0-15.0) g/dL Hct 43.5 (37.0-47.0) % MCV 92.9 (80-100) fl MCH 29.9 (26-34) pg MCHC 32.2 (32-36) g/dl RDW 13.7 (11.5-14.5) % Plt Count 142 L (150-375) k/mm3 MPV 9.9 (7.4-10.4) fl Immature Gran % (Auto) 0.4 (0-0.5) % Neut % (Auto) 80.8 H (45.5-73.1) % Lymph % (Auto) 11.6 L (18.3-44.2) % Teller % (Auto) 6.3 (2.6-8.5) % Eos % (Auto) 0.6 (0-4.4) % Baso % (Auto) 0.3 (0.2-1.2) % Lymph # (Auto) 1.28 (0.9-3.2) K/mm3 Teller # (Auto) 0.7 H (0.1-0.6) K/mm3 Eos # (Auto) 0.1 (0-0.3) K/mm3 Baso # (Auto) 0.0 (0.0-0.1) K/mm3 Abs Immat Gran (auto) 0.04 H (0.00-0.031) K/mm3 Absolute Neuts (auto) 8.9 H (1.3-6.7) K/mm3 Absolute Nucleated RBC 0.000 (0.0-0.012) K/mm3 Nucleated RBC % 0.0 (0.0-0.2) % PT (11.1-14.7) Seconds INR APTT (22.3-36.8) Seconds Sodium 136 L (137-145) mmol/L Potassium 4.1 (3.4-5.0) mmol/L Chloride 99 (98-107) mmol/L Carbon Dioxide 26 (22-30) mmol/L Anion Gap 11 (4-12) mmol/L BUN 24 H (7-17) mg/dL Creatinine 0.84 (0.7-1.0) mg/dL Estim Creat Clear Calc 49 ml/min Estimated GFR > 60 (59 - ) Glucose 199 H (65-110) mg/dL Lactic Acid 1.4 (0.7-2.0) mmol/L Calcium 9.0 (8.4-10.2) mg/dL Total Bilirubin (0.2-1.3) mg/dL AST (14-36) U/L ALT (6-35) U/L Alkaline Phosphatase (38-126) U/L Total Protein (6.3-8.2) g/dL Albumin (3.5-5.1) g/dL Lipase (23-300) U/L Urine Color (Yellow) Urine Appearance (Clear) Urine pH (5.0-9.0) Ur Specific [place] (1.001-1.035) Urine Protein (Negative) mg/dL Urine Glucose (UA) (Negative) mg/dL Urine Ketones (Negative) mg/dL Ur Blood (Man) (Negative) Urine Nitrate (Negative) Urine Bilirubin (Negative) Urine Urobilinogen (<2.0) mg/dL Leukocyte Esterase Rfl (Negative) DELVIN/UL Urine RBC (0-2) /hpf Urine WBC (0-3) /hpf Ur Squamous Epith Cells (Few) /hpf Urine Bacteria /hpf Urine Casts C. difficile (PCR) (NEGATIVE) <Blas Shelley MD - Last Filed: 07/07/24 22:57> Imaging Data Radiologist's impression: ITS Impressions Abdomen/Pelvis CT 07/07/24 16:44 IMPRESSION: 1. Colitis extending from the mid transverse to the mid sigmoid colon which could be infectious, inflammatory or ischemic in etiology. <Sylvie Moya PA-C - Last Filed: 07/08/24 14:42> Critical Care Time Critical Care Time Critical Care Time: No <TREY Noel Last Filed: 07/08/24 14:42> Discharge Plan Discharge Clinical Impression: Colitis, C. difficile colitis <TREY Noel Last Filed: 07/08/24 14:42> Patient Disposition: Still a Patient <TREY Noel Last Filed: 07/08/24 14:42> Condition: Stable <TREY Noel Last Filed: 07/08/24 14:42>
--- OUTSIDE RECORDS SUMMARY | 2024-07-07 14:00 | XMS_ITS | Clinical Summary ---
Author Organization [facility] [address] Address [address] [place] [address] Care Team Providers Care Binding Printer Name Role Phone Jad Fisher MD Primary Care Provider [phone] Chang Ward MD Unavailable [phone] Allergies Active Allergy Reactions Criticality Noted Date [...] 04/12/2024 Assessment & Plan (04/12/2024 11:22 AM UNIX ENGINEER): Started on Fosamax. Continue taking vitamin D. [...] surgery. Updated referral and reached out to [facility] orthopedic surgery Dr. Ward, plan [...] Rosuvastatin 40mg. Last lipid panel: 02/19/23 LDL=73, UR=533. No changes at this time. Assessment & Plan (08/12/2023 11:01 AM UNIX ENGINEER): Chronic, stable LDL cholesterol goal Continue rosuvastatin Assessment & Plan (05/04/2023 10:39 AM UNIX ENGINEER): Chronic problem, currently taking Rosuvastatin 40mg. Last lipid panel: 02/19/23 LDL=73, MS=453. No changes at this time. Assessment & Plan (01/19/2023 10:03 AM CDT): Chronic, well controlled Continue Rosuvastatin Assessment & Plan (08/18/2022 10:33 AM CDT): Chronic problem, currently taking Rosuvastatin 40mg. Last lipid panel: 01/30/22 LDL=62, WC=340. No changes at this time. Hypertension associated with stage 2 chronic kidney disease due to type 2 diabetes mellitus ([facility]) 08/17/2022 Assessment & Plan (04/12/2024 11:42 AM UNIX ENGINEER): Normotensive. Continue taking lisinopril. Red flags reviewed. Assessment & Plan (12/16/2023 10:21 AM CDT): Chronic problem, BP controlled on current lisinopril 40mg daily. No changes at this time. Assessment & Plan (09/13/2023 11:43 AM CDT): Normotensive. Continue lisinopril, clonidine. Will continue monitor. Assessment & Plan (05/04/2023 10:39 AM UNIX ENGINEER): Chronic problem, BP controlled on current lisinopril 40mg daily. No changes at this time. Assessment & Plan (08/18/2022 10:33 AM CDT): Chronic problem, BP controlled on current quinapril 40mg daily. No changes at this time. Mild cognitive impairment 05/28/2022 Assessment & Plan (05/28/2022 4:07 PM UNIX ENGINEER): Patient started on donepezil around 01/2022 and [...] due to type 2 diabetes mellitus ( [facility]/HCC) 03/17/2021 Assessment & Plan (12/16/2023 10:21 AM CDT): Chronic problem. Currently taking Gabapentin 300mg bid. Reviewed foot care; needs to lotion daily. Aware to check feet nightly, not to go barefoot. Assessment & Plan (08/12/2023 11:00 AM UNIX ENGINEER): Foot care discussed Continue gabapentin Assessment & Plan (05/04/2023 11:00 AM UNIX ENGINEER): Chronic problem. Currently taking Gabapentin 300mg bid. [...] aspirin starting Wednesday 11/22. Coronary arteriosclerosis in [place] artery 02/06 Overview (09/11/2016): CAD in [place] artery Impairment of balance 02/07/2016 Overview (09/11/2016): Balance disorder Episodic lightheadedness 03/08/2014 Fall at home, initial encounter 03/08/2014 Heart disease 10/21/2013 Overview (12/25/2021): HYPERTENSION NOS Occlusion and stenosis of unspecified carotid ar sh[place] 03/02/2013 Overview (05/04/2021): Carotid disease, bilateral Diabetes mellitus 01/13/2013 Overview (12/25/2021): DMII WO [facility] Overview: DMII WO [facility] Overview: DMII WO [facility] Assessment & Plan (06/08/2024 12:04 PM UNIX ENGINEER): Chronic, uncontrolled with a higher A1c Importance [...] placed. Assessment & Plan (08/12/2023 11:00 AM UNIX ENGINEER): Chronic, stable but not at goal Importance of diet and exercise discussed Continue current regimen with Levemir, Humalog, Ozempic and Farxiga Patient interested in an insulin pump Will get C-peptide, fasting glucose and galen antibody If appropriate, will start process for insulin pump Assessment & Plan (05/04/2023 10:58 AM UNIX ENGINEER): Chronic problem. A1c improved from 8.0% 01/2023 [...] hours). Assessment & Plan (07/09/2022 4:06 PM UNIX ENGINEER): Hba1c was Lab Results Component Value Date [...] Send me a message every week, via [employer], to let me know how you are doing with your sugars and for us to look at your sugars on Freestyle Rafaela Cardiac arrhythmia 01/13/2013 Overview (05/04/2021): History - Overview: History - Cerebral infarction 01/13/2013 Overview (05/04/2021): R caudate and putamen stroke Irregular heart rhythm 01/13/2013 Overview (05/04/2021): Overview: History - Type 2 diabetes mellitus with diabetic neuropath y ([facility]/HCC) 01/13/2013 Assessment & Plan (09/13/2023 11:42 AM [...] stroke Assessment & Plan (05/28/2022 4:08 PM UNIX ENGINEER): Continues tight control of BP, statin and [...] Type Department Care Team Description 06/28/2024 Telephone [facility] [address] [address] Raj Stoddard MD [employer] Solution 06/22/2024 11:00 AM UNIX ENGINEER Office Visit [facility] Surgery [facility] 6th [place] [address] Syeda Fernandez MD Arthritis of carpometacarpal (CMC) joint of left thumb (Primary Dx); Trigger finger of left thumb; Left carpal tunnel syndrome 06/08/2024 11:15 AM UNIX ENGINEER Office Visit [facility] [address] [address] Raj Stoddard MD Type 2 diabetes mellitus with hyperglycemia, with long-term current use of insulin (HCC) (Primary Dx) 05/08/2024 Telephone [facility] [address] [address] Raj Stoddard MD Forms/questionnaires (Plant[employer]) 05/03/2024 Telephone [facility] [address] [phone] Jad Fisher MD Appointment Request 04/29/2024 11:22 AM UNIX ENGINEER - 05/01/2024 11:02 AM UNIX ENGINEER Hospital Encounter [facility] [address] [place] [address] Ruel Fernández MD Sinha, Chandni, MD Sargsyan, Narine, MD Troponin level elevated (Primary Dx); Congestion of upper respiratory tract; Urinary frequency; Generalized weakness; COVID-19 Discharge Disposition: Discharge to home or self care 04/29/2024 11:04 AM UNIX ENGINEER - 04/29/2024 11:59 PM UNIX ENGINEER Hospital Encounter [facility] Emergency, Room R Discharge Disposition: Discharge to home or self care 04/25/2024 Telephone [facility] [address] [phone] Jad Fisher MD Medical Question/Miscellaneous 04/21/2024 Telephone [facility] [address] [phone] Jad Fisher MD Medical Question/Miscellaneous 04/12/2024 10:30 AM UNIX ENGINEER Office Visit [facility] [address] [phone] Mer Simpson NP Age-related osteoporosis without current pathological fracture (Primary Dx); BMI 29.0-29.9,adult; Hypertension associated with stage 2 chronic kidney disease due to type 2 diabetes mellitus ([facility]/HCC) (HCC) 04/07/2024 Telephone [facility] [address] [phone] Jad Fisher MD Medical Question/Miscellaneous 04/06/2024 Telephone [facility] [address] [phone] Jda Fisher MD Medical Question/Miscellaneous from Last 3 [...] aplastic anemia at age 64, was a Mu-ism Heart attack Mother 2 Mother Myocardial infa rction; mother had massive NM at 72 Diabetes type II Other Family [...] often do you attend chur ch or samaritan services? 1 to 4 times per year 08/20/2022 Do you belong to any clubs o r organizations such as yazdanism groups, unions, fraternal or athletic groups, or [...] staff should administer the PHQ-9) 0 06/08/2024 [facility] of Occupat ional Health - Occupational Stress [...] place to sleep or slept in a correction (including now)? No 08/20/2022 Personal Safety Answer Date Recorded Have you ever been in or are you currently in a harmful physical or emotional relationship or is someone making you feel afraid or unsafe? Denies 04/29/2024 Comments No Sex and Gender Information Value Date Recorded Sex Assigned at Not on file Legal Sex Female 6:13 AM UNIX ENGINEER Gender Identity Not on file Sexual Orientation Straight 06/08/2024 11 :24 AM UNIX ENGINEER Obstetrics History Para Term AB IAB SAB Ectopic Multiple Livin g Live Births 1 1 1 Date Outcome GA Total Labor Labor/2nd/3rd Weight Sex Type Anes PTL Sarina A1 A5 Name Clin Term Last Filed Vital Signs Vital Sign Reading Time Taken Comments Blood Pressure 132/70 06/08/2024 11:34 AM UNIX ENGINEER Pulse 88 06/08/2024 11:34 AM UNIX ENGINEER Temperature 36.2 ??C (97.2 ??F) 05/01/2024 7:45 AM CS T Respiratory Rate 20 06/08/2024 11:34 AM UNIX ENGINEER Oxygen Saturation 97% 05/01/2024 7:45 AM UNIX ENGINEER Inhaled Oxygen Concentration - - Weight 76.8 kg (169 lb 6.4 oz) 06/08/2024 11:34 AM UNIX ENGINEER Height 154.9 cm (5' 1 ) 06/08/2024 11:34 AM UNIX ENGINEER Body Mass Index 32.01 06/08/2024 11:34 AM UNIX ENGINEER Plan of Treatment Health Maintenance Due Date [...] 04/04/2024, 02/10/2023 Medical Devices Implanted Type Area Appeals Assistant Device Identifier Shelf Expiration Date Model / Serial / Lot [employer] Dvr [id number] Crosslock Howard Screw Hole Fix Angle Radius Left 1314-050 - [id number] Implanted:Qty: 1 on 11/26/2022 by Chang Ward MD at [facility] Left: Wrist [employer] [id number] / / [employer] Dvr 2.7mm 18mm 3 Lead Thread Lock Taper Head Radius Distal Volar 1312-15-118 - [id number] Implanted:Qty: 1 on 11/26/2022 by Chang Ward MD at [facility] Left: Wrist [employer] [id number] / / [employer] Dvr 2.7mm 20mm Lock Spine Screw Bone Nonsterile [id number] - [id number] Implanted:Qty: 2 on 11/26/2022 by Chang Ward MD at [facility] Left: Wrist [employer] [id number] / / [employer] 2.7mm 13mm Nonlock Low Profile Radius Distal Screw Bone [id number] - [id number] Implanted:Qty: 1 on 11/26/2022 by Chang Ward MD at [facility] Left: Wrist [employer] [id number] / / [employer] Dvr 2.7mm 14mm Lock Cortical Screw Bone Nonsterile Latex Free 1312-27-114 - [id number] Implanted:Qty: 2 on 11/26/2022 by Chang Ward MD at [facility] Left: Wrist [employer] 1312-27-114 / / [employer] Dvr 2.7mm 13mm Lock 3 Lead Thread Crosslock Taper Head Radius 1312-27-113 - [id number] Implanted:Qty: 1 on 11/26/2022 by Chang Ward MD at [facility] Left: Wrist [employer] 1312-27-113 / / Procedures Procedure Name Priority Date/Time Associated Diagnosis Comments POCT GLUCOSE Routine 06/08/2024 11:35 AM UNIX ENGINEER Type 2 diabetes mellitus with hyperglycemia, with long-term current use of insulin (HCC) POCT HEMOGLOBIN A1C Routine 06/08/2024 1 1:35 AM UNIX ENGINEER Type 2 diabetes mellitus with hyperglycemia, with long-term current use of insulin (HCC) POCT GLUCOSE DEVICE Routine 05/01/2024 7 :41 AM UNIX ENGINEER EGFR Routine 05/01/2024 4:27 AM UNIX ENGINEER DIFFERENTIAL AUTO Routine 05/01/2024 4:2 7 AM UNIX ENGINEER COMPREHENSIVE METABOLIC PANEL Routine 05/01/2024 4:27 AM UNIX ENGINEER CBC WITH AUTO DIFFERENTIAL Routine 05/01/2024 4:27 AM UNIX ENGINEER PHOSPHORUS Routine 05/01/2024 4:27 AM UNIX ENGINEER MAGNESIUM Routine 05/01/2024 4:27 AM UNIX ENGINEER POCT GLUCOSE DEVICE Routine 05/01/2024 1 :55 AM UNIX ENGINEER POCT GLUCOSE DEVICE Routine 04/30/2024 8 :40 PM UNIX ENGINEER POCT GLUCOSE DEVICE Routine 04/30/2024 4 :10 PM UNIX ENGINEER POCT GLUCOSE DEVICE Routine 04/30/2024 1 2:23 PM UNIX ENGINEER POCT GLUCOSE DEVICE Routine 04/30/2024 8 :58 AM UNIX ENGINEER PROCALCITONIN Routine 04/30/2024 8:21 AM UNIX ENGINEER EGFR Routine 04/30/2024 3:34 AM UNIX ENGINEER COMPREHENSIVE METABOLIC PANEL Routine 04/30/2024 3:34 AM UNIX ENGINEER PHOSPHORUS Routine 04/30/2024 3:34 AM UNIX ENGINEER MAGNESIUM Routine 04/30/2024 3:34 AM UNIX ENGINEER POCT GLUCOSE DEVICE Routine 04/30/2024 2 :18 AM UNIX ENGINEER POCT GLUCOSE DEVICE Routine 04/30/2024 1 2:17 AM UNIX ENGINEER POCT GLUCOSE DEVICE Routine 04/29/2024 1 0:16 PM UNIX ENGINEER POCT GLUCOSE DEVICE Routine 04/29/2024 8 :47 PM UNIX ENGINEER TROPONIN T HIGH-SENSITIVITY 6-HOUR Timed 04/29/2024 7:12 PM UNIX ENGINEER TROPONIN T HIGH-SENSITIVITY 4-HR Timed 04/29/2024 5:32 PM UNIX ENGINEER POCT GLUCOSE DEVICE Routine 04/29/2024 4 :43 PM UNIX ENGINEER TROPONIN T HIGH-SENSITIVITY 2-HOUR Timed 04/29/2024 4:01 PM UNIX ENGINEER POCT GLUCOSE DEVICE Routine 04/29/2024 3 :39 PM UNIX ENGINEER TROPONIN T HIGH-SENSITIVITY SERIES (BASELINE, 2HR, 4HR, 6HR) STAT 04/29/2024 1:27 PM UNIX ENGINEER STREPTOCOCCUS GROUP A PCR STAT 04/29/2024 1:27 PM UNIX ENGINEER URINALYSIS, MICROSCOPIC ONLY STAT 04/29/2024 12:44 PM UNIX ENGINEER URINALYSIS AND REFLEX TO MICROSCOPIC AND CULTURE STAT 04/29/2024 12:44 PM UNIX ENGINEER XR CHEST PA LATERAL 2 VIEWS ED 04/29/2024 11:42 AM UNIX ENGINEER PRO B-TYPE NATRIURETIC PEPTIDE STAT 04/29/2024 11:35 AM UNIX ENGINEER TROPONIN T HIGH-SENSITIVITY Routine 04/29/2024 11:35 AM UNIX ENGINEER RESPIRATORY PATHOGEN PANEL STAT 04/29/2024 11:35 AM UNIX ENGINEER EGFR STAT 04/29/2024 11:30 AM UNIX ENGINEER DIFFERENTIAL AUTO STAT 04/29/2024 11: 30 AM UNIX ENGINEER COMPREHENSIVE METABOLIC PANEL STAT 04/29/2024 11:30 AM UNIX ENGINEER CBC WITH AUTO DIFFERENTIAL STAT 04/29/2024 11:30 AM UNIX ENGINEER ECG 12-LEAD STAT 04/29/2024 11:29 AM UNIX ENGINEER COLONOSCOPY REPORT Routine 04/04/2024 10 :21 AM [...] Read Routine (OP Routine) 04/16/2023 12:56 PM UNIX ENGINEER Encounter for screening mammogram for malignant neoplasm of breast from Last 3 Months or Most Recently Relevant to Health Maintenance Results * (ABNORMAL) POCT hemoglobin A1c (06/08/2024 11:35 AM UNIX ENGINEER) Hemoglobin A1C, POC 7.7 4.0 - 5.6 % Comment:None Capillary blood 06/08/2024 1 1:35 AM UNIX ENGINEER us Raj Stoddard MD POINT OF CARE TEST ORDERABLES Fi nal Result * (ABNORMAL) POCT glucose (06/08/2024 11:35 AM UNIX ENGINEER) Glucose Blood, POC 214 mg/dL Comment:None Blood 06/08/2024 11:3 5 AM UNIX ENGINEER us Raj Stoddard MD POINT OF CARE TEST ORDERABLES Fi nal Result * POCT glucose (05/01/2024 7:41 AM UNIX ENGINEER) Glucose, POC 179 70 - 199 mg/dL Blood 05/01/2024 7:41 AM UNIX ENGINEER 05/01/2024 7:41 AM UNIX ENGINEER us Amanda Walker MD LAB POCT ORDERABLES - DEVICE Final Result [facility] [place] [address] [facility] Department [place] [address] * eGFR (05/01/2024 4:27 AM UNIX ENGINEER) eGFR 78 >=60 mL/min/1. 73 m2 Comment: [...] last reviewed 2021. Blood 05/01/2024 4:27 AM UNIX ENGINEER 05/01/2024 5:47 AM UNIX ENGINEER us Bro Jameson MD LAB BLOOD ORDERABLES Final Resu lt [facility] ([place]) [address] [facility] Department [place] [address] * Differential, auto (05/01/2024 4:27 AM UNIX ENGINEER) Neutrophil abs 4.3 1.5 - 6.5 K/cumm Imm gran abs 0.0 0.0 - 0.1 K/cumm [facility] ([place]) Lymphocyte abs 1.6 0.8 - 3.3 K/cumm [facility] ([place]) Monocyte abs 0.4 0.2 - 0.8 K/cumm [facility] ([place]) Eosinophil abs 0.1 0.0 - 0.5 K/cumm [...] revised on 2017. Blood 05/01/2024 4:27 AM UNIX ENGINEER 05/01/2024 5:47 AM UNIX ENGINEER us Bro Jameson MD LAB BLOOD ORDERABLES Final Resu lt [facility] ([place]) [address] [facility] Department [place] [address] * CBC with auto differential (05/01/2024 4:27 AM UNIX ENGINEER) WBC 6.4 3.8 - 9.9 K/cumm Hgb [...] [facility] ([place]) Blood 05/01/2024 4:27 AM UNIX ENGINEER 05/01/2024 5:47 AM UNIX ENGINEER Bro Jameson MD LAB BLOOD ORDERABLES Final Resu lt Performing Organization Address City/[facility]/ZIP Co de Phone Number [facility] ([place]) [address] [facility] [place] [address] * Phosphorus (05/01/2024 4:27 AM UNIX ENGINEER) Phosphorus, pl 4.2 2.3 - 4.5 mg/dL Blood 05/01/2024 4:27 AM UNIX ENGINEER 05/01/2024 5:47 AM UNIX ENGINEER Bro Jameson MD LAB BLOOD ORDERABLES Final Resu lt [facility] ([place]) [address] [facility] [place] [address] * Magnesium (05/01/2024 4:27 AM UNIX ENGINEER) Magnesium 1.8 1.4 - 2.5 mg/dL Blood 05/01/2024 4:27 AM UNIX ENGINEER 05/01/2024 5:47 AM UNIX ENGINEER us Bro Jameson MD LAB BLOOD ORDERABLES Final Resu lt [facility] ([place]) [address] [facility] Department [place] [address] * (ABNORMAL) Comprehensive metabolic panel (05/01/2024 4:27 AM UNIX ENGINEER) Sodium 137 135 - 145 mmol/L Potassium, pl 3.5 3.3 - 4.9 mmol/L [facility] ([place]) Chloride 101 97 - 110 mmol/L [facility] ([place]) CO2 25 22 - 32 mmol/L [facility] ([place]) Anion gap 11 2 - 15 mmol/L [facility] ([place]) BUN 15 6 - 25 mg/dL [facility] Creatinine 0.80 0.60 - 1.10 mg/dL [facility] ([place]) Glucose 131 70 - 199 mg/dL [facility] ([place] Comment: Interpretive Data Fasting glucose [...] [facility] ([place]) Blood 05/01/2024 4:27 AM UNIX ENGINEER 05/01/2024 5:47 AM UNIX ENGINEER us Bro Jameson MD LAB BLOOD ORDERABLES Final Resu lt [facility] ([place]) [address] [facility] [place] [address] * POCT glucose (05/01/2024 1:55 AM UNIX ENGINEER) Glucose, POC 131 70 - 199 mg/dL Blood 05/01/2024 1:55 AM UNIX ENGINEER 05/01/2024 1:55 AM UNIX ENGINEER us Amanda Walker MD LAB POCT ORDERABLES - DEVICE Final Result Performing Organization Address City/[facility]/ZIP Co de Phone Number [facility] ([place]) [address] [facility] [place] [address] * (ABNORMAL) POCT glucose (04/30/2024 8:40 PM UNIX ENGINEER) Glucose, POC 245(H) 70 - 199 mg/dL Blood 04/30/2024 8:40 PM UNIX ENGINEER 04/30/2024 8:40 PM UNIX ENGINEER us Amanda Walker MD LAB POCT ORDERABLES - DEVICE Final Result Performing Organization Address City/[facility]/ZIP Co de Phone Number [facility] ([place]) [address] [facility] [place] [address] * POCT glucose (04/30/2024 4:10 PM UNIX ENGINEER) Glucose, POC 119 70 - 199 mg/dL Blood 04/30/2024 4:10 PM UNIX ENGINEER 04/30/2024 4:10 PM UNIX ENGINEER Amanda Walker MD LAB POCT ORDERABLES - DEVICE Final Result [facility] ([place]) [address] [facility] [place] [address] * (ABNORMAL) POCT glucose (04/30/2024 12:23 PM UNIX ENGINEER) Glucose, POC 249(H) 70 - 199 mg/dL Blood 04/30/2024 12:2 3 PM UNIX ENGINEER 04/30/2024 12:23 PM UNIX ENGINEER us Amanda Walker MD LAB POCT ORDERABLES - DEVICE Final Result Performing Organization Address City/[facility]/ZIP Co de Phone Number [facility] ([place]) [address] [facility] [place] [address] * (ABNORMAL) POCT glucose (04/30/2024 8:58 AM UNIX ENGINEER) Glucose, POC 207(H) 70 - 199 mg/dL Blood 04/30/2024 8:58 AM UNIX ENGINEER 04/30/2024 8:58 AM UNIX ENGINEER Amanda Walker MD LAB POCT ORDERABLES - DEVICE Final Result Performing Organization Address City/[facility]/ZIP Co de Phone Number [facility] ([place]) [address] [facility] [place] [address] * Procalcitonin (04/30/2024 8:21 AM UNIX ENGINEER) Procalcitonin 0.08 <=0.25 ng/mL Comment:Testing performed by : [facility], [facility], [place]., [address] Blood 04/30/2024 8:21 AM UNIX ENGINEER 04/30/2024 2:38 PM UNIX ENGINEER us Bro Jameson MD LAB BLOOD ORDERABLES Final Resu lt Performing Organization Address City/[facility]/ZIP Co de Phone Number [facility] [place]) [address] [facility] [place] [address] * eGFR (04/30/2024 3:34 AM UNIX ENGINEER) eGFR 83 >=60 mL/min/1. 73 m2 Comment: [...] last reviewed 2021. Blood 04/30/2024 3:34 AM UNIX ENGINEER 04/30/2024 4:32 AM UNIX ENGINEER us Bro Jameson MD LAB BLOOD ORDERABLES Final Resu lt [facility] ([place]) [address] [facility] [place] [address] * Phosphorus (04/30/2024 3:34 AM UNIX ENGINEER) Pathologist [facility] Phosphorus, pl 3.2 2.3 - 4.5 mg/dL Blood 04/30/2024 3:34 AM UNIX ENGINEER 04/30/2024 4:32 AM UNIX ENGINEER Bro Jameson MD LAB BLOOD ORDERABLES Final Resu lt [facility] ([place]) 1 [facility] [place] [employer] [place] [address] * Magnesium (04/30/2024 3:34 AM UNIX ENGINEER) [facility] Magnesium 1.6 1.4 - 2.5 mg/dL Blood 04/30/2024 3:34 AM UNIX ENGINEER 04/30/2024 4:32 AM UNIX ENGINEER Bro Jameson MD LAB BLOOD ORDERABLES Final Resu lt Performing Organization Address City/[facility]/ZIP Co de Phone Number [facility] ([place]) [address] [facility] [place] [address] * (ABNORMAL) Comprehensive metabolic panel (04/30/2024 3:34 AM UNIX ENGINEER) [facility] Sodium 135 135 - 145 mmol/L Potassium, pl 3.5 3.3 - 4.9 mmol/L [facility] ([place]) Chloride 99 97 - 110 mmol/L [facility] ([place]) CO2 21(L) 22 - 32 mmol/L [facility] ([place]) Anion gap 14 2 - 15 mmol/L [facility] ([place]) BUN 11 6 - 25 mg/dL [facility] ([place]) Creatinine 0.76 0.60 - 1.10 mg/dL [facility] ([place]) Glucose 258(H) 70 - 199 mg/dL [facility] ([place]) Comment: Interpretive Data [...] [facility] ([place]) Blood 04/30/2024 3:34 AM UNIX ENGINEER 04/30/2024 4:32 AM UNIX ENGINEER us Bro Jameson MD LAB BLOOD ORDERABLES Final Resu lt [facility] ([place]) [address] [facility] [employer] [place] [employer] [place] [address] * (ABNORMAL) POCT glucose (04/30/2024 2:18 AM UNIX ENGINEER) Glucose, POC 217(H) 70 - 199 mg/dL Blood 04/30/2024 2:18 AM UNIX ENGINEER 04/30/2024 2:18 AM UNIX ENGINEER us Marva Gandara MD LAB POCT ORDERABLES - DEVICE Fi nal Result Performing Organization Address City/[facility]/ZIP Co de Phone Number [facility] ([place]) [address] [facility] Department [place] [employer] [place] [address] * (ABNORMAL) POCT glucose (04/30/2024 12:17 AM UNIX ENGINEER) Glucose, POC 235(H) 70 - 199 mg/dL Blood 04/30/2024 12:1 7 AM UNIX ENGINEER 04/30/2024 12:17 AM UNIX ENGINEER Marva Gandara MD LAB POCT ORDERABLES - DEVICE Fi nal Result Performing Organization Address [facility] Co de Phone Number [facility] ([place]) [address] [facility] [place] [address] * (ABNORMAL) POCT glucose (04/29/2024 10:16 PM UNIX ENGINEER) Glucose, POC 201(H) 70 - 199 mg/dL Blood 04/29/2024 10:1 6 PM UNIX ENGINEER 04/29/2024 10:16 PM UNIX ENGINEER Marva Gandara MD LAB POCT ORDERABLES - DEVICE Fi nal Result Performing Organization Address [facility] Co de Phone Number [facility] ([place]) [address] [facility] [place] [address] * (ABNORMAL) POCT glucose (04/29/2024 8:47 PM UNIX ENGINEER) [facility] Glucose, POC 244(H) 70 - 199 mg/dL Blood 04/29/2024 8:47 PM UNIX ENGINEER 04/29/2024 8:47 PM UNIX ENGINEER Marva Gandara MD LAB POCT ORDERABLES - DEVICE Fi nal Result Performing Organization Address [facility] Co de Phone Number [facility] ([place]) [address] [facility] [place] [address] * (ABNORMAL) Troponin T high-sensitivity 6-hour (04/29/2024 7:12 PM UNIX ENGINEER) Pathologist [facility] Trop T hs 15(H) <=14 ng/L Comment: Interpretive Data For further hscTnT resources including the diagnostic algorithm and an aid in interpretation, copy and paste this link: https://[email or web address].testcatalog.org/show/hsTrop Current Interpretive Data last revised 2020. Trop T hs delta 1 ng/L [facility] ([place]) Trop T hs interp Insignificant [facility] ([place]) Blood 04/29/2024 7:12 PM UNIX ENGINEER 04/29/2024 7:20 PM UNIX ENGINEER Ruel Fernández MD LAB BLOOD ORDERABLES Final Resul t Performing Organization Address City/[facility]/ZIP Co de Phone Number YAMILEX JHA (KARIME) 1 [facility] [place] [address] * Troponin T high-sensitivity 4-hour (04/29/2024 5:32 PM UNIX ENGINEER) Trop T hs 14 <=14 ng/L Comment: Interpretive Data For further hscTnT resources including the diagnostic algorithm and an aid in interpretation, copy and paste this link: https://nrl.testcatalog.org/show/hsTrop Current Interpretive Data last revised 2020. Trop T hs delta 0 ng/L [facility] (KARIME) Trop T hs interp Insignificant [facility] (KARIME) Blood 04/29/2024 5:32 PM UNIX ENGINEER 04/29/2024 5:42 PM UNIX ENGINEER Ruel Fernández MD LAB BLOOD ORDERABLES Final Resul t Performing Organization Address City/[facility]/ZIP Co de Phone Number YAMILEX HJA (KARIME) 1 [facility] [place] [employer] [place] [address] * POCT glucose (04/29/2024 4:43 PM UNIX ENGINEER) Glucose, POC 155 70 - 199 mg/dL Blood 04/29/2024 4:43 PM UNIX ENGINEER 04/29/2024 4:43 PM UNIX ENGINEER Marva Gandara MD LAB POCT ORDERABLES - DEVICE Fi nal Result Performing Organization Address City/[facility]/ZIP Co de Phone Number YAMILEX JHA (KARIME) 1 [place] [address] * (ABNORMAL) Troponin T high-sensitivity 2-hour (04/29/2024 4:01 PM UNIX ENGINEER) Trop T hs 15(H) <=14 ng/L Comment: Interpretive Data For further hscTnT resources including the diagnostic algorithm and an aid in interpretation, copy and paste this link: https://nrl.CityLive.org/show/hsTrop Current Interpretive Data last revised 2020. Trop T hs delta 1 ng/L [facility] (KARIME) Trop T hs interp Insignificant [facility] (KARIME) Blood 04/29/2024 4:01 PM UNIX ENGINEER 04/29/2024 4:08 PM UNIX ENGINEER Ruel Fernández MD LAB BLOOD ORDERABLES Final Resul t Performing Organization Address City/[facility]/ZIP Co de Phone Number YAMILEX JHA ([place]) [address] [place] [address] * POCT glucose (04/29/2024 3:39 PM UNIX ENGINEER) [facility] Glucose, POC 182 70 - 199 mg/dL Blood 04/29/2024 3:39 PM UNIX ENGINEER 04/29/2024 3:39 PM UNIX ENGINEER us Marva Gandara MD LAB POCT ORDERABLES - DEVICE Fi nal Result YAMILEX JHA ([place]) 1 [place] [address] * Troponin T high-sensitivity series (baseline, 2hr, 4hr, 6hr) (04/29/2024 1:27 PM UNIX ENGINEER) Pathologist [facility] [place] Trop T hs 14 <=14 ng/L Comment: Interpretive Data For further hscTnT resources including the diagnostic algorithm and an aid in interpretation, copy and paste this link: https://nrl.CityLive.org/show/hsTrop Current Interpretive Data last revised 2020. Blood 04/29/2024 1:27 PM UNIX ENGINEER 04/29/2024 1:29 PM UNIX ENGINEER Ruel Fernández MD LAB BLOOD ORDERABLES Final Resul t YAMILEX JHA ([place]) 1 [facility] [place] [address] * Streptococcus Group A PCR Throat (04/29/2024 1:27 PM UNIX ENGINEER) Strep A DNA Not Detected Not Detected Comment: This test is performed using the [employer] Xpert Group A Streptococcal Assay. This is [...] the performing laboratory. Throat 04/29/2024 1:27 PM UNIX ENGINEER 04/29/2024 1:29 PM UNIX ENGINEER Ruel Fernández MD LAB MICROBIOLOGY - GENERAL ORDER LEV Final Result Performing Organization Address City/[facility] Co de Phone Number YAMILEX JHA ([place]) 1 [facility] [place] [address] * (ABNORMAL) Urinalysis reflex to microscopic and culture Urine (04/29/2024 12:44 PM UNIX ENGINEER) Color, ur Yellow Yellow Clarity, ur Clear Clear YAMILEX [facility] ([place]) Specific gravity, ur 1.009 1.003 - 1.030 YAMILEX JHA ([place]) pH, urine 6.0 YAMILEX [facility] ([place]) Comment: Interpretive Data ? Urine pH is affected by diet, medications, systemic acid-base disturbances, and renal tubular function. ??pH may affect urinary stone formation. ??For example, urine pH below 6.0 may help reduce the tendency for calcium phosphate stones and pH greater than 6.0 may reduce the tendency for uric acid stone formation. Source: [facility] [employer] Current Interpretive Data was last revised on [...] JHA (KARIME) Urine 04/29/2024 12:4 4 PM UNIX ENGINEER 04/29/2024 12:46 PM UNIX ENGINEER Ruel Fernández MD LAB MICROBIOLOGY - GENERAL ORDER LEV Final Result Performing Organization Address City/[facility] Co de Phone Number YAMILEX JHA (KARIME) [address] [facility] [place] [address] * (ABNORMAL) Urinalysis, microscopic only (04/29/2024 12:44 PM UNIX ENGINEER) WBC, ur 0-5 0 - 5 /HPF RBC, ur 0-2 0 - 2 /HPF [facility] (KARIME) Epithelial cells, squamous, ur 1-5 0 - 5 /HPF [facility] (KARIME) Mucous, ur Present(A) CERNER [facility] (KARIME) Culture Reflex Comment Reflex conditions for urine culture (WBC >10) not met. YAMILEX JHA (KARIME) Urine 04/29/2024 12:4 4 PM UNIX ENGINEER 04/29/2024 12:46 PM UNIX ENGINEER Ruel Fernández MD LAB URINE ORDERABLES Final Resul t Performing Organization Address City/[facility]/ZIP Co de Phone Number YAMILEX JHA (KARIME) [address] [facility] Department [place] [address] * XR Chest Pa Lateral 2 Views (04/29/2024 11:42 AM UNIX ENGINEER) Anatomical Region Laterality Modality Body, Chest N/A Computed Radiogr aphy 04/29/2024 12:1 7 PM UNIX ENGINEER Narrative 04/29/2024 12:18 PM UNIX ENGINEER EXAM DESCRIPTION: XR CHEST PA LATERAL 2 VIEWS REASON FOR STUDY: general weakness, URI symptoms, assess for PNA, other infectious signs ?? Patient presents to the ED per EMS [facility] from home where patient called EMS for weakness since Wednesday when she came home from [place], patient states she went to [facility] and got wet in the rain . [...] PM T: ??04/29/2024 12:18 PM Report ID: [id number] Reading Location: ??[id number] Procedure Note Oniel Horvath, DO - 04/29/2024 EXAM DESCRIPTION: XR CHEST PA LATERAL 2 VIEWS REASON FOR STUDY: general weakness, URI symptoms, assess for PNA, other infectious signs Patient presents to the ED per EMS [facility] from home where patient called EMSfor weakness since Wednesday when she came home from [place], patient statesshe [facility] and got wet in the rain . [...] Oniel Horvath M.D. MF: BLESSING Report ID: [id number] Reading Location: [place] [address] Ruel Fernández MD IMG XR PROCEDURES Final Result * (ABNORMAL) Troponin T high-sensitivity (04/29/2024 11:35 AM UNIX ENGINEER) Trop T hs 15(H) <=14 ng/L Comment: Interpretive Data For further hscTnT resources including the diagnostic algorithm and an aid in interpretation, copy and paste this link: https://nrl.testcatalog.org/show/hsTrop Current Interpretive Data last revised 2020. Blood 04/29/2024 11:3 5 AM UNIX ENGINEER 04/29/2024 11:38 AM UNIX ENGINEER Ruel Fernández MD LAB BLOOD ORDERABLES Final Resul t Performing Organization Address City/State/[facility] Co de Phone Number [facility]ERHFZ [facility] [place] [address] [facility] Department [place] [address] * (ABNORMAL) Pro B-type natriuretic peptide (04/29/2024 11:35 AM UNIX ENGINEER) NT-proBNP 365(H) <=300 pg/mL Comment: Interpretive Comments: [...] Date: 2018. Blood 04/29/2024 11:3 5 AM UNIX ENGINEER 04/29/2024 11:39 AM UNIX ENGINEER us Ruel Fernández MD LAB BLOOD ORDERABLES Final Resul t YAMILEX [facility] ([place]) [address] [facility] Department [place] [address] * (ABNORMAL) Respiratory pathogen panel Nasopharyngeal (04/29/2024 11:35 AM UNIX ENGINEER) Influenza A RNA Not Detected Not Detected CH Comment:Testing performed by : [facility], [address] [place] [address]., [address] Influenza B RNA Not Detected Not Detected [facility] (KARIME) Comment:Testing performed by : [facility], [address] [place] [address]., [address] RSV RNA Not Detected Not Detected [facility] (KARIME) Comment:Testing performed by : [facility], [address] [place] [address]., [address] COVID-19 RNA Detected(A) Not Detected [facility] (KARIME) Comment:Testing performed by : [facility], [address] [place] [address]., [address] Coronavirus 229E RNA Not Detected Not Detected [facility] (KARIME) Comment:Testing performed by : [facility], [address] [place] [address]., [address] Coronavirus HKU1 RNA Not Detected Not Detected [facility] (KARIME) Comment:Testing performed by : [facility], [address] [place] [address], [address] Coronavirus NL63 RNA Not Detected Not Detected [facility] (KARIME) Comment:Testing performed by : [facility], [address] [place] [address], [address] Coronavirus OC43 RNA Not Detected Not Detected [facility] (KARIME) Comment:Testing performed by : [facility], [address] [place] [address]., [address] Adenovirus DNA Not Detected Not Detected [facility] (KARIME) Comment:Testing performed by : [facility], [address] [place] [address], [address] Metapneumovirus RNA Not Detected Not Detected [facility] (KARIME) Comment:Testing performed by : [facility], [address] [place] [address], [address] Rhinovirus/Enterov irus RNA Not Detected Not Detected [facility] (KARIME) Comment:Testing performed by : [facility], [address] [place] [address], [address] Parainfluenza 1 RNA Not Detected Not Detected [facility] (KARIME) Comment:Testing performed by : [facility], [address] [place] [address], [address] Parainfluenza 2 RNA Not Detected Not Detected [facility] (KARIME) Comment:Testing performed by : [facility], [address] [place] [address]., [address] Parainfluenza 3 RNA Not Detected Not Detected [facility] (KARIME) Comment:Testing performed by : [facility], [address] [place] [address]., [address] Parainfluenza 4 RNA Not Detected Not Detected [facility] (KARIME) Comment:Testing performed by : [facility], [address] [place] [address]., [address] B. pertussis DNA Not Detected Not Detected [facility] (KARIME) Comment:Testing performed by : [facility], [address] [place] [address]., [address] B. parapertussis DNA Not Detected Not Detected [facility] (KARIME) Comment:Testing performed by : [facility], [address] [place] [address]., [address] C. pneumoniae DNA Not Detected Not Detected [facility] (KARIME) Comment:Testing performed by : [facility], [address] [place] [address]., [address] M. pneumoniae DNA Not Detected Not Detected [facility] (KARIME) Comment: Interpretive Data The NextInput FilmArray Respiratory Panel (RP2.1) assay is a [...] assay has FDA clearance for testing of CANVAS BASTER JUMPBASTING swabs. ??The performance characteristics of this assay have been determined by [facility]. Current interpretive data was last revised on 2020. Testing performed by: [facility], [address] [place] [address]., [address] Nasopharyngeal 04/29/2024 11 :35 AM UNIX ENGINEER 04/29/2024 1:22 PM UNIX ENGINEER Narrative YAMILEX JHA ([place]) - 04/29/2024 2:16 PM UNIX ENGINEER Is the Patient experiencing symptoms consistent with COVID?->Yes Surveillance testing for transplant patient?->No Ruel Fernández MD LAB MICROBIOLOGY - GENERAL ORDER LEV Final Result YAMILEX ABHIJEET ([place]) [address] [facility] Department of Laboratories [place], [place] [id number] CH * eGFR (04/29/2024 11:30 AM UNIX ENGINEER) eGFR 81 >=60 mL/min/1. 73 m2 Comment: [...] reviewed 2021. Blood 04/29/2024 11:3 0 AM UNIX ENGINEER 04/29/2024 11:38 AM UNIX ENGINEER Ruel Fernández MD LAB BLOOD ORDERABLES Final Resul t [facility] ([place]) [address] [facility] Department of Laboratories [place], [place] [address] * Differential, auto (04/29/2024 11:30 AM UNIX ENGINEER) Neutrophil abs 6.2 1.5 - 6.5 K/cumm [...] Neutrophil pct 76.9 % CERNE R [facility] ([place]) Comment: Interpretive Data Percent cell count reference [...] on 2017. Blood 04/29/2024 11:3 0 AM UNIX ENGINEER 04/29/2024 11:39 AM UNIX ENGINEER Ruel Fernández MD LAB BLOOD ORDERABLES Final Resul t YAMILEX JHA ([place]) [address] [facility] Department [place] [address] * (ABNORMAL) CBC with auto differential (04/29/2024 11:30 AM UNIX ENGINEER) WBC 8.1 3.8 - 9.9 K/cumm Hgb 13.8 11.9 - 15.5 g/dL YAMILEX [facility] (KARIME) Hct 42.3 35.6 - 45.5 % YAMILEX JHA (KARIME) Plt 136(L) 150 - 400 K/cumm YAMILEX JHA (KARIME) MPV 10.2 9.1 - 12.3 fL [facility] (KARIME) RBC 4.61 3.90 - 5.20 M/cumm [facility] MCV 91.8 81.3 - 96.4 fL [facility] MCH 29.9 27.1 - 33.3 pg [facility] MCHC 32.6 32.3 - 35.7 g/dL [facility] RDW CV 13.5 11.1 - 14.9 % [facility] RDW SD 45.6 35.7 - 48.1 fL [facility] NRBC abs 0.00 0.00 - 0.01 K/cumm [facility] (KARIME) Blood 04/29/2024 11:3 0 AM UNIX ENGINEER 04/29/2024 11:39 AM UNIX ENGINEER Ruel Fernández MD LAB BLOOD ORDERABLES Final Resul t [facility] (KARIME) [address] [facility] Department [place] [address] * (ABNORMAL) Comprehensive metabolic panel (04/29/2024 11:30 AM UNIX ENGINEER) Sodium 135 135 - 145 mmol/L Potassium, pl 3.8 3.3 - 4.9 mmol/L [facility] (KARIME) Chloride 99 97 - 110 mmol/L [facility] (KARIME) CO2 18(L) 22 - 32 mmol/L [facility] Anion gap 18(H) 2 - 15 mmol/L [facility] (KARIME) BUN 9 6 - 25 mg/dL [facility] Creatinine 0.78 0.60 - 1.10 mg/dL [facility] (KARIME) Glucose 221(H) 70 - 199 mg/dL [facility] ([facility] Comment: Interpretive Data Fasting glucose [...] S pecimen Blood 04/29/2024 11:3 0 AM UNIX ENGINEER 04/29/2024 11:38 AM UNIX ENGINEER Ruel Fernández MD LAB BLOOD ORDERABLES Final Resul t Performing Organization Address City/[facility] de Phone Number YAMILEX JHA (KARIME) [address] [facility] Department of Laboratories [place] [id number] * ECG 12 lead (04/29/2024 11:29 AM UNIX ENGINEER) 04/29/2024 11:2 9 AM UNIX ENGINEER Narrative [facility] - 05/01/2024 8:40 AM UNIX ENGINEER Vent Rate: 87 bpm RR Interval: 683 msec TN Interval: 200 msec QRS Duration: 94 msec QT Interval: 343 msec QTC Interval: 388 msec P-R-T Franklin: 50 - -4 - 79 degrees IMPRESSION: SINUS RHYTHM SEPTAL MYOCARDIAL INFARCTION , OF INDETERMINATE AGE [40+ ms Q WAVE IN V1/V2] ABNORMAL ECG No change compared to prior EKG Electronically Signed By: Damien Chilel MD [facility] Ruel Fernández MD ECG ORDERABLES Final Result [facility] * Colonoscopy Report -[facility] (04/04/2024 10:21 AM CDT) Anatomical [...] secondary osteoporosis. ?? Patient takes vitamin-D. ? Appeals Assistant/Model: Redeem SL (S/N [id number]) CLINICAL INFORMATION: Current height: ??62 ??inches ? [...] PM T: ??03/23/2024 4:45 PM Report ID: [id number] Reading Location: ??[id number] Procedure Note Rebecca Syed MD - 03/23/2024 EXAM DESCRIPTION: DEXA AXIAL SKELETON BONE DENSITY 1 OR MORE SITES REASON FOR STUDY: 74 y/o year old F with given history of: Post menopausal status. History prior fracture and secondary osteoporosis. Patient takes vitamin-D. Appeals Assistant/Model: OmniStrat Discovery SL (S/N [id number]) CLINICAL INFORMATION: Current height: 62 inches Maximum [...] Rebecca Syed M.D. TW: TW Report ID: [id number] Reading Location: [place] [address] Mer Simpson NP IMG DXA PROCEDURES Final R esult * (ABNORMAL) Albumin Creatinine Ratio, Urine (02/14/2024 11:16 AM CDT) [facility] Albumin Ur 59.2 mg/L Comment: Interpretive Data No reference range established. Current interpretive data was last revised 2018. Testing performed by: [facility], [address] [place] [address], [place]., [address] Creatinine Ur 187.7 mg/dL YAMILEX JHA (KARIME) Comment: Interpretive Data No reference range established. Current interpretive data was last revised 2018. Testing performed by: [facility], [address] [place] [address]., [address] Albumin Creatinine Ratio, Ur 32(H) 1 - 29 mg/g YAMILEX JHA (KARIME) Comment:Testing performed by : [facility], [address] [place] [address]., [address] Urine 02/14/2024 11:1 6 AM CDT 02/14/2024 6:30 PM CDT us Mer Simpson NP LAB URINE ORDERABLES Final Result YAMILEX JHA (KARIME) [address] [facility] Department [place] [address] * (ABNORMAL) Lipid panel (02/14/2024 11:16 AM [...] last revised on 2018. Testing performed by: [facility], [address] [place] [address], [place]., [address] Triglycerides 175(H) <=149 mg/dL YAMILEX JHA (KARIME) [...] last revised on 2018. Testing performed by: [address] [address] HDL 34(L) >=40 mg/dL YAMILEX JHA (KARIME) [...] last revised on 2018. Testing performed by: [facility], [address] [place] [address]., [address] LDL, calculated 74 <=129 mg/dL YAMILEX JHA [...] last revised on 2024. Testing performed by: [address] [address] Non-HDL Cholesterol 104 mg/dL YAMILEX JHA (KARIME) [...] last revised on 2018. Testing performed by: [facility], [address] [place] [address]., [address] Chol/HDL ratio 4 REJI JHA (KARIME) Comment:Testing performed by : [facility], [address] [place] [address]., [address] Blood 02/14/2024 11:1 6 AM CDT 02/14/2024 6:30 PM CDT Mer Simpson NP LAB BLOOD ORDERABLES Final Result YAMILEX JHA (KARIME) [address] [facility] [place] [address] * DIABETES EYE EXAM (10/19/2023) SCRIBED DIABETIC DILATED EYE EXAM Normal Historical Provider MD HEALTH MAINTENANCE Final Result * Screening Mammogram Bilateral W Philipp (04/16/2023 12:56 PM UNIX ENGINEER) Anatomical Region Laterality Modality Breast Bilateral Mammography 04/28/2023 2:18 PM UNIX ENGINEER Impressions 04/28/2023 2:18 PM UNIX ENGINEER There is no mammographic evidence of malignancy. A 1 year screening mammogram is recommended. BI-RADS: 1 - Negative. The patient has been or will be contacted. The patient will be entered into a reminder system with a target due date of 1 year for her next mammogram. Electronically signed by: Jaida Rothman M.D. Narrative 04/28/2023 2:18 PM UNIX ENGINEER EXAMINATION: SCREENING MAMMOGRAM BILATERAL W PHILIPP ORDERING [...] Advance Directives For more information, please contact: [phone] Documents on File Type Date Recorded Patient Nozzle Operator Expl anation ADVANCE DIRECTIVE 06/19/2022 6:10 PM * Full Code (Latest Code Status on File) Date Activated Date Inactivated Comments 04/29/2024 9:41 PM 05/01/2024 3:08 PM Care Teams Binding Printer Relationship Specialty Start Date End Date Jad [place] [address] PCP - General Family Medicine 01/27/22 [place] [id number] [address] Surgeon Orthopedic Surgery 11/26/22
--- OUTSIDE RECORDS SUMMARY | 2024-07-07 14:00 | XMS_ITS | Clinical Summary ---
Author Organization [facility] Address [address] [place] [address] Care Team Providers Care Mold Puller Name Role Phone Júnior Puente MD Primary Care Provider [phone] Source Comments [facility],non-owned Affiliates and Associated Physician Practices is amultiple site organization consisting of ambulatory clinics and hospital sitesin [place], [place], [place] and [place]. This disclosure is being madepursuant to the Care Everywhere program and may not contain all information available regarding this patient. Last updated 18.[facility] Allergies No known active allergies Medications * [...] Comments Blood Pressure 118/58 07/23/2020 11:30 AM SOFTWARE SALES Pulse 74 07/23/2020 11:30 AM SOFTWARE SALES Temperature 36.5 ??C (97.7 ??F) 07/23/2020 10:[address] Respiratory Rate 6 07/23/2020 11:30 AM SOFTWARE SALES Oxygen Saturation 94% 07/23/2020 11:30 AM SOFTWARE SAL[employer] Inhaled Oxygen Concentration - - Weight 70.8 kg (156 lb) 07/23/2020 8:34 AM SOFTWARE SALES Height 157.5 cm (5' 2 ) 07/23/2020 8:34 AM SOFTWARE [employer] Body Mass Index 28.53 07/23/2020 8:34 AM SOFTWARE SAL[employer] Plan of Treatment Health Maintenance Due Date [...] PANEL (CALCIUM TOTAL) STAT 07/23/2020 8:14 AM SOFTWARE SAL[employer] Preop examination HEMOGLOBIN A1C Routine 01/12/2013 2:30 AM CDT from Last 3 Months or Most Recently Relevant to Health Maintenance Results * (ABNORMAL) BASIC METABOLIC PANEL (CALCIUM TOTAL) (07/23/2020 8:14 AM SOFTWARE SALES) BUN 13 7 - 26 mg/dL 07/23/2020 8:48 AM [facility] Creatinine 0.7 0.6 - 1.2 mg/dL 07/23/2020 8:48 AM [facility] Sodium 141 136 - 145 mmol/L 07/23/2020 8:48 AM [facility] Potassium 3.3(L) 3.5 - 4.5 mmol/L 07/23/2020 8:48 AM [facility] Chloride 106 98 - 107 mmol/L 07/23/2020 8:48 AM [facility] CO2 24 22 - 29 mmol/L 07/23/2020 8:48 AM [facility] Glucose 167(H) 70 - 115 mg/dL 07/23/2020 8:48 AM [facility] Calcium 8.5 8.4 - 10.2 mg/dL 07/23/2020 8:48 AM [facility] Anion Gap 14 8 - 18 07/23/2020 8:48 AM [facility] BUN/Creatinine Ratio 19 7 - 23 07/23/2020 8:48 AM [facility] Osmolality Calculated 296 270 - 300 mOsm/kg 07/23/2020 8:48 AM [facility] eGFR >60 >60 mL/min/1.7 3 m2 07/23/2020 8:48 AM [facility] Blood BLOOD SPECIMEN / Unknown Venipuncture / Unknown 07/23/2020 8:14 AM [employer] 07/23/2020 8:18 AM [employer] Rod Olivas MD LAB - CHEMISTRY [facility] [address] [place] [address], [facility] [phone] * (ABNORMAL) HEMOGLOBIN A1C (01/12/2013 2:30 AM CDT) Hemoglobin A1c 7.1(H) 4.4 - 6.3 % [facility] Estimated Average Glucose 157 mg/dL [facility] Blood specimen (specimen) 01/12/2013 2:30 AM CDT 01/12/2013 2:55 AM CDT Arturo Ernst MD LAB - CHEMISTRY [facility] [address] [place] [address], [facility] [phone] from Last 3 Months or Most Recently Relevant to Health Maintenance Care Teams Mold Puller Relationship Specialty Start Date End Date Júnior Puente MD [address] [place] [address] PCP - General 03/02/14
--- OUTSIDE RECORDS SUMMARY | 2024-07-07 14:01 | XMS_ITS | Patient Health Summary ---
Author Organization [facility] [employer] Address [address] [place] [address] Care Team Providers Care Network Field Engineer Name Role Phone Júnior Puente MD Primary Care Provider [phone] Note from [facility],non-owned Affiliates and Associated Physician Practices is amultiple site organization consisting of ambulatory clinics and hospital sitesin [place], [place], [place] and [place]. This disclosure is being madepursuant to the Care Everywhere program and may not contain all information available regarding this patient. Last updated 18.[facility] [employer] Allergies No known active allergies Medications [...] Comments Blood Pressure 118/58 07/23/2020 11:30 AM SANITARY AIDE Pulse 74 07/23/2020 11:30 AM SANITARY AIDE Temperature 36.5 ??C (97.7 ??F) 07/23/2020 10:[address] Respiratory Rate 6 07/23/2020 11:30 AM SANITARY AIDE Oxygen Saturation 94% 07/23/2020 11:30 AM SANITARY AIDE Inhaled Oxygen Concentration - - Weight 70.8 kg (156 lb) 07/23/2020 8:34 AM SANITARY AIDE Height 157.5 cm (5' 2 ) 07/23/2020 8:34 AM SANITARY AIDE Body Mass Index 28.53 07/23/2020 8:34 AM SANITARY AIDE Procedures * IR CAROTID CEREBRAL ANGIOGRAM(Performed 07/23/2020) [...] IR CAROTID CEREBRAL ANGIOGRAM (07/23/2020 10:11 AM SANITARY AIDE) Only the most recent of5 resultswithin the time period is included. Anatomical Region Laterality Modality Head X-Ray Angiograph y 07/23/2020 10:3 8 AM SANITARY AIDE Impressions 07/29/2020 5:11 PM SANITARY AIDE Impression: 1.Proximal left internal carotid artery stenosis of 60% 2.Stable and patent right vertebral artery (V1 segment) stent I, Dr. ROCIO AMEZQUITA M.D. have personally reviewed and interpreted this examination/study. This report was electronically signed by ROCIO AMEZQUITA M.D. ??on 07/29/2020 5:11 PM . Narrative 07/29/2020 5:11 PM SANITARY AIDE Procedure: Cerebral angiogram 07/23/2020 Comparison study: 2017, 09/15/2017 History: The patient a 70 years -year-old Female withhx ofposterior circulation symptoms s/p R V1 stenting 2017, falls, LICA 78% stenosis,Left vertebral artery origin stenosis/occlusion. Cerebral catheter angiogram to quantify the stenosis. Shroudman: Francheska Amezquita Horticulturalist(s): Umm Olivas Vessels: Ultrasound guided access of right radial artery Right radial artery angiogram Left common carotid angiogram: Cervical and Cerebral Right subclavian artery angiogram: Cervical and Cerebral Anesthesia: Moderate sedation on this adult patient was ordered by the paper roll machine operator, administered intravenously in my presence, and [...] patient evaluation, please review the evaluation in [facility]. For details on monitored clinical parameters during the intra-service sedation time, please review the procedure nurse documentation in [facility]. Procedural detail: The risks, benefits, and alternatives [...] Following a series of exchanges, a 5 Belarusian Slender Glidesheath was placed in the right radial artery. Heparin 3,000 units, verapamil 2.5 mg and nitroglycerin 300 mcg were given through the sheath for vasospasm prophylaxis. A 5 Belarusian Obrien 2 catheter was navigated into the [...] normal in course and caliber. The bilateral public weigher were patent though partially visualized. The left [...] Cerebral catheter angiogram to quantify the stenosis. Shroudman: Francheska Amezquita Horticulturalist(s): Umm Olivas Vessels: Ultrasound guided access of right radial artery Right radial artery angiogram Left common carotid angiogram: Cervical and Cerebral Right subclavian artery angiogram: Cervical and Cerebral Anesthesia: Moderate sedation on this adult patient was ordered by the paper roll machine operator, administered intravenously in my presence, and [...] patient evaluation, please review the evaluation in [facility]. For details on monitored clinical parameters during the intra-service sedation time, please review the procedure nurse documentation in [facility]. Procedural detail: The risks, benefits, and alternatives [...] documented. Following aseries of exchanges, a 5 Belarusian Slender Glidesheath was placed in the right radial artery. Heparin 3,000 units, verapamil 2.5 mg and mcg were given through the sheath for vasospasm prophylaxis. A 5 Belarusian Obrien 2 catheter was navigated into the [...] normal in course and caliber. The bilateral public weigher were patent though partially visualized. The left [...] - POINT OF CARE (07/23/2020 8:16 AM SANITARY AIDE) Pathologist [facility] Glucose WB/POC 195(H) 70 - 115 mg/dL 07/23/2020 8:17 AM [facility] Specimen Type Venous 07/23/2020 8:17 AM [facility] Blood BLOOD SPECIMEN / Unknown 07/23/2020 8:16 AM SANITARY AIDE 07/23/2020 8:17 AM SANITARY AIDE Rocio Amezquita MD LAB - POINT OF CARE ORDERABLES Performing Organization Address City/State/[facility] Co de Phone Number [facility] [address] [place] [address], [facility] [phone] * PT-INR [facility] (07/23/2020 8:14 AM SANITARY AIDE) Only the most recent of5 resultswithin the time period is included. Pathologist [facility] PT 12.8 12.1 - 14.8 Seconds 07/23/2020 8:50 AM [facility] INR 1.0 See Comment 07/23/2020 8:50 AM [facility] Comment:The suggested therap eutic range for standard coumadin (warfarin) therapy is an INR of 2.0-3.0. For high-risk patients (Mechanical Mitral Valve Prosthesis, etc.), the suggested prophylactic therapeutic range is an INR of 2.5-3.5. Blood BLOOD SPECIMEN / Unknown Venipuncture / Unknown 07/23/2020 8:14 AM SANITARY AIDE 07/23/2020 8:40 AM [facility] Rocio Amezquita MD LAB - COAGULATION OR DERABLES [facility] [address] [place] [address], [facility] [phone] * (ABNORMAL) CBC W AUTO DIFFERENTIAL (07/23/2020 8:14 AM [facility]) Only the most recent of6 resultswithin the time period is included. WBC 5.7 3.5 - 10.5 10? 3 /uL 07/23/2020 8:24 AM [facility] RBC 5.46(H) 3.90 - 5.00 10? 6 /uL 07/23/2020 8:24 AM [facility] Hemoglobin 15.5 12.0 - 15.5 g/dL 07/23/2020 8:24 AM [facility] Hematocrit 49.7(H) 35.0 - 45.0 % 07/23/2020 8:24 AM [facility] MCV 91.0 81.0 - 97.0 fL 07/23/2020 8:24 AM [facility] MCH 28.4 28.0 - 34.0 pg 07/23/2020 8:24 AM [facility] MCHC 31.2(L) 32.0 - 36.0 g/dL 07/23/2020 8:24 AM [facility] Platelet Count 177 150 - 400 10? 3 /uL 07/23/2020 8:24 AM [facility] RDW-SD 44.5 36.0 - 50.0 fL 07/23/2020 8:24 AM [facility] RDW-CV 13.6 11.2 - 14.8 % 07/23/2020 8:24 AM [facility] MPV 10.4 9.3 - 12.8 fL 07/23/2020 8:24 AM [facility] nRBC Absolute 0.00 0 10? 3 /uL 07/23/2020 8:24 AM [facility] nRBC Auto 0.0 0 /100 WBC 07/23/2020 8:24 AM [facility] Neutrophils % 67.2 35.0 - 70.0 % 07/23/2020 8:24 AM [facility] Lymphocytes % 23.4 19.7 - 55.1 % 07/23/2020 8:24 AM [facility] Monocytes % 6.5 3.0 - 15.0 % 07/23/2020 8:24 AM [facility] Eosinophils % 1.6 0.0 - 6.0 % 07/23/2020 8:24 AM [facility] Basophil % 0.9 0.0 - 1.5 % 07/23/2020 8:24 AM [facility] Neutrophils Absolute 3.8 1.6 - 7.0 10? 3 /uL 07/23/2020 8:24 AM [facility] Lymphocyte Absolute 1.3 0.8 - 2.9 10? 3 /uL 07/23/2020 8:24 AM [facility] Monocytes Absolute 0.37 0.14 - 0.66 10? 3 /uL 07/23/2020 8:24 AM [facility] Eosinophils Absolute 0.09 0.00 - 0.45 10? 3 /uL 07/23/2020 8:24 AM [facility] Basophils Absolute 0.05 0.00 - 0.06 10? 3 /uL 07/23/2020 8:24 AM [facility] Immature Granulocytes % 0.4 0.0 - 1.0 % 07/23/2020 8:24 AM [facility] Blood BLOOD SPECIMEN / Unknown Venipuncture / Unknown 07/23/2020 8:14 AM SANITARY AIDE 07/23/2020 8:18 AM [facility] Rod Olivas MD LAB - HEMATOLOGY ORD ERABLES [facility] [address] [place] [address], [facility] [phone] * (ABNORMAL) BASIC METABOLIC PANEL (CALCIUM TOTAL) (07/23/2020 8:14 AM SANITARY AIDE) Only the most recent of7 resultswithin the time period is included. BUN 13 7 - 26 mg/dL 07/23/2020 8:48 AM [facility] Creatinine 0.7 0.6 - 1.2 mg/dL 07/23/2020 8:48 AM [facility] Sodium 141 136 - 145 mmol/L 07/23/2020 8:48 AM [facility] Potassium 3.3(L) 3.5 - 4.5 mmol/L 07/23/2020 8:48 AM [facility] Chloride 106 98 - 107 mmol/L 07/23/2020 8:48 AM [facility] CO2 24 22 - 29 mmol/L 07/23/2020 8:48 AM [facility] Glucose 167(H) 70 - 115 mg/dL 07/23/2020 8:48 AM [facility] Calcium 8.5 8.4 - 10.2 mg/dL 07/23/2020 8:48 AM [facility] Anion Gap 14 8 - 18 07/23/2020 8:48 AM [facility] BUN/Creatinine Ratio 19 7 - 23 07/23/2020 8:48 AM [facility] Osmolality Calculated 296 270 - 300 mOsm/kg 07/23/2020 8:48 AM [facility] eGFR >60 >60 mL/min/1.7 3 m2 07/23/2020 8:48 AM [facility] Blood BLOOD SPECIMEN / Unknown Venipuncture / Unknown 07/23/2020 8:14 AM SANITARY AIDE 07/23/2020 8:18 AM [facility] Rod Olivas MD LAB - CHEMISTRY JASON SANCHEZ [facility] Organization Address City/State/ZIP Co de Phone Number [facility] [address] [place] [address], [facility] [phone] * (ABNORMAL) CBC W/O DIFFERENTIAL (09/15/2017 11:26 AM CDT) Only the most recent of3 resultswithin the time period is included. WBC 5.7 3.5 - 10.5 10? 3 /uL 09/15/2017 11:56 AM [facility] RBC 4.55 3.90 - 5.00 10? 6 /uL 09/15/2017 11:56 AM [facility] Hemoglobin 13.8 12.0 - 15.5 g/dL 09/15/2017 11:56 AM [facility] Hematocrit 43.2 35.0 - 45.0 % 09/15/2017 11:56 AM [facility] MCV 94.9 81.0 - 97.0 fL 09/15/2017 11:56 AM [facility] MCH 30.3 28.0 - 34.0 pg 09/15/2017 11:56 AM [facility] MCHC 31.9(L) 32.0 - 36.0 g/dL 09/15/2017 11:56 AM [facility] Platelet Count 172 150 - 400 10? 3 /uL 09/15/2017 11:56 AM [facility] RDW-SD 48.9 36.0 - 50.0 fL 09/15/2017 11:56 AM [facility] RDW-CV 14.2 11.2 - 14.8 % 09/15/2017 11:56 AM [facility] MPV 10.5 9.3 - 12.8 fL 09/15/2017 11:56 AM [facility] Blood BLOOD SPECIMEN / Unknown Venipuncture / Unknown 09/15/2017 11:26 AM CDT 09/15/2017 11:29 AM CDT Rocio Amezquita MD LAB - HEMATOLOGY ORD ERABLES [address] [phone] * MRI BRAIN WO CONTRAST (03/22/2017 7:38 [...] resultswithin the time period is included. Pathologist [facility] Glucose, Fingerstick 205(H) 70-115mg/d L mg/dL [facility] ANTONIA (ROSALIO) Comment:Shroudman: GWEN HUNTER 03/02/2017 8:01 AM CDT Rocio Amezquita MD LAB - CHEMISTRY JASON SANCHEZ [facility] Organization Address City/State/ZIP Co de Phone Number [facility] ANTONIA LIV[place]) * (ABNORMAL) COMPREHENSIVE METABOLIC PANEL (2017 11:41 PM CDT) Pathologist [facility] BUN 23 7 - 26 mg/dL [facility] Creatinine 0.9 0.6 - 1.2 mg/dL [facility] Sodium 139 136 - 145 mmol/L [facility] Potassium 3.8 3.5 - 4.5 mmol/L [facility] Chloride 101 98 - 107 mmol/L [facility] CO2 27 22 - 29 mmol/L [facility] Glucose 196(H) 70 - 115 mg/dL [facility] Calcium 8.3(L) 8.4 - 10.2 mg/dL [facility] Protein Total 6.1 6.0 - 8.3 g/dL [facility] Albumin 3.1(L) 3.4 - 5.0 g/dL [facility] Bilirubin Total 0.6 0.2 - 1.2 mg/dL [facility] Alkaline Phosphatase 79 40 - 150 Units/L [facility] ALT 13 0 - 55 Units/L [facility] AST 12 5 - 34 Units/L [facility] Anion Gap 15 8 - 18 [facility] BUN/Creatinine Ratio 26(H) 7 - 23 [facility] Osmolality Calculated 297 270 - 300 mOsm/kg [facility] Albumin/Globulin Ratio 1.0(L) 1.1 - 2.3 [facility] eGFR >60 >60 mL/min/1.7 3 m2 [facility] Blood specimen (specimen) BLOOD SPECIMEN / Unknown 2017 11:41 PM CDT 2017 11:46 PM CDT Rocio Amezquita MD LAB - CHEMISTRY JASON [facility] Organization Address City/State/[facility] Co de Phone Number [address] [phone] * PHOSPHORUS BLOOD (2017 11:41 PM CDT) Only the most recent of5 resultswithin the time period is included. Phosphorus 3.6 2.3 - 4.7 mg/dL [facility] Blood specimen (specimen) BLOOD SPECIMEN / Unknown 2017 11:41 PM CDT 2017 11:46 PM CDT Rocio Amezquita MD LAB - CHEMISTRY JASON SANCHEZ Performing Organization Address City/[facility]/ZIP Co de Phone Number [facility] [address] [place] [address], [facility] [phone] * MAGNESIUM BLOOD (2017 11:41 PM CDT) Only the most recent of5 resultswithin the time period is included. Magnesium 1.9 1.6 - 2.6 mg/dL [facility] Blood specimen (specimen) BLOOD SPECIMEN / Unknown 2017 11:41 PM CDT 2017 11:46 PM CDT Rocio Amezquita MD LAB - CHEMISTRY JASON SANCHEZ Performing Organization Address [facility] [place] [address], [facility] [phone] * IR US GUIDE VASCULAR ACCESS (2017 [...] of stenosis and for possible stent placement. Shroudman: Francheska Amezquita and Alissa Eubanks Vessels: Ultrasound [...] Following a series of exchanges, a 5 Belarusian Ph.Creative 1 catheter was navigated into the aortic [...] the arterial system and replaced by a Property Owl Envoy guide catheter that was positioned proximal [...] system. Hemostasis was achieved using a 6 Belarusian Angio-Seal closure device. Hemostasis was immediate at [...] of stenosis and for possible stent placement. Shroudman: Francheska Amezquita and Alissa Eubanks Vessels: Ultrasound [...] documented. Following aseries of exchanges, a 5 Belarusian Obrien 1 catheter was navigated into theaortic [...] arterial system.Hemostasis was achieved using a 6 Belarusian Angio-Seal closure device.Hemostasis was immediate at the [...] with reconstitution via muscular branches in the [id number] The right subclavian artery angiogram reveals 70% [...] IR ORDERABLES * ACT - POCT (IP) [facility] (2017 9:30 AM CDT) Activated Clotting Time 331 sec [facility] Blood specimen (specimen) 2017 9:30 AM CDT Rocio Amezquita MD LAB - POINT OF CARE ORDERABLES [facility] * PTT SLU (2017 6:55 AM CDT) Only the most recent of2 resultswithin the time period is included. APTT 24.9 23.0 - 38.4 Seconds [facility] Comment:Suggested therapeuti c range for full dose I.V. heparin therapy for venous thromboembolism is 66.0-91.0 seconds. Blood specimen (specimen) BLOOD SPECIMEN / Unknown 2017 6:55 AM CDT 2017 6:58 AM CDT Narrative [facility] - 2017 7:12 AM CDT Is patient on Heparin, Argatroban or Dabigatran?->N Rocio Amezquita MD LAB - COAGULATION OR DERABLES Performing Organization Address City/[facility]/ZIP Co de Phone Number [address] [phone] * VAS CAROTID DUPLEX BILATERAL (12/17/2016 11:30 [...] * (ABNORMAL) CREATININE BLOOD - POCT (IP) [facility] (10/09/2015) Only the most recent of2 resultswithin the time period is included. Creatinine POCT 1.05 0.3 - 1.3 mg/dL [facility] eGFR POCT 56(A) 60 ml/min [facility] 10/09/2015 Olaf Valentino MD LAB - POINT OF CARE ORDERABLES [facility] * MRI ANGIO BRAIN ARTERIAL WO CONT [...] according to standard protocol. MRA of the gdwzdc-rl-Dclgic was performed using a lxlm-jj-uizfzx technique without contrast. Finally, contrast-enhanced MRA of [...] contrastaccording to standard protocol. MRA of the bwwjyz-ph-Czdyfz was performedusing a nizr-dl-zvxvqb technique without contrast. Finally, contrast-enhanced MRA of [...] according to standard protocol. MRA of the bfyqiw-jo-Ypdnad was performed using a mqff-sv-kqnbeb technique without contrast. Finally, contrast-enhanced MRA of [...] contrastaccording to standard protocol. MRA of the odjnvp-be-Pxgiav was performedusing a eblb-up-kuatle technique without contrast. Finally, contrast-enhanced MRA of [...] according to standard protocol. MRA of the uonhbo-wz-Tisjpv was performed using a jcgt-hh-xkqyat technique without contrast. Finally, contrast-enhanced MRA of [...] contrastaccording to standard protocol. MRA of the iffyps-ai-Edmwop was performedusing a gshm-af-xgpaxh technique without contrast. Finally, contrast-enhanced MRA of [...] Anatomical Region Laterality Modality Other Leanne Mondragon APRN-CORE MAKER HELPER VASCULAR LAB OR DERABLES * (ABNORMAL) CALCIUM IONIZED WHOLE BLOOD (02/05/2013 1:14 AM CDT) Only the most recent of2 resultswithin the time period is included. Ionized Calcium Whole Blood 1.17 MMOL/L [facility] Whole Blood PH 7.38 7.35 - 7.45 [facility] Adjusted Ionized Calcium 1.16(L) 1.19 - 1.34 mmol/L [facility] 02/05/2013 1:14 AM CDT 02/05/2013 1:10 AM CDT Olaf Valentino MD LAB - CHEMISTRY JASON SANCHEZ [address] [phone] * (ABNORMAL) ANTITHROMBIN III ACTIVITY (02/03/2013 12:12 PM CDT) AT ACT 230(H) 105 - 167 SECONDS [facility] Comment: PERFORMED BY: LILIANA MITCHELL Therapeutic range for Cardiac r and d lab technician is: ? 200 - 300 seconds ? [...] - COAGULATION OR DERABLES Performing Organization Address [facility] Co de Phone Number [address] [phone] * (ABNORMAL) URINALYSIS W/MICROSCOPIC NO CULTURE (02/03/2013 12:00 PM CDT) Color UA YELLOW STRW,YELLOW [facility] Clarity UA CLEAR CLEAR [facility] Specific [place] Urine 1.017 1.001 - 1.030 [facility] pH UA <= 5.0 5.0 - 8.0 [facility] Protein UA NEGATIVE <20 mg/dL [facility] Glucose UA NEGATIVE NEGATIVE mg/dL [facility] Ketones NEGATIVE NEGATIVE mg/dL [facility] Bilirubin UA NEGATIVE NEGATIVE mg/dL [facility] Blood UA NEGATIVE NEGATIVE [facility] Nitrite UA NEGATIVE NEGATIVE [facility] Leukocyte Esterase NEGATIVE NEGATIVE [facility] Urobilinogen UA < 2.0 <2.0 mg/dL [facility] RBC Urine < 1 0 - 8 /HPF [facility] WBC Urine 1 0 - 2 /HPF [facility] Squamous Epithelial Cells UA < 1 0 - 1 /HPF [facility] Mucus Urine RARE(A) NONE SEEN /LPF [facility] Urine specimen (specimen) URINE SPECIMEN COLLECTION, CATHETERIZED / Unknown 02/03/2013 12:00 PM CDT 02/03/2013 12:10 PM CDT Olaf Valentino MD LAB - URINALYSIS ORD ERABLES Performing Organization Address [facility] Co de Phone Number [address] [phone] * CULTURE URINE (02/03/2013 12:00 PM CDT) Culture Urine NO GROWTH OF >100 CFU/ML AFTER 48 HOURS. [facility] Urine specimen (specimen) URINE SPECIMEN COLLECTION, CATHETERIZED / Unknown 02/03/2013 12:00 PM CDT 02/03/2013 12:10 PM CDT Narrative [facility] - 02/05/2013 2:59 PM CDT Specimen Type->Urine Olaf Valentino MD LAB - MICROBIOLOGY O RDERABLES Performing Organization Address [facility] Co de Phone Number [address] [phone] * TYPE + SCREEN PANEL (02/03/2013 9:05 AM CDT) Interpretation ABO/Rh Patient A POS [facility] Antibody Screen NEGATIVE [facility] Venous blood specimen (specimen) 02/03/2013 9:05 AM CDT 02/03/2013 9:11 AM CDT Olaf Valentino MD LAB - BLOOD BANK ORD ERABLES Performing Organization Address [facility] Co de Phone Number [address] [phone] * EKG 12-LEAD (01/20/2013 7:41 AM CDT) Narrative [facility] - 01/20/2013 7:41 AM CDT Procedure Note Provider, MD Alexander - 11/12/2017 Heike Tavera MD ECG ORDERABLES Performing Organization Address [facility] Co de Phone Number [facility] * TROPONIN I (01/12/2013 4:46 PM CDT) Only the most recent of4 resultswithin the time period is included. Troponin I < 0.010 <0.032 ng/mL [facility] Comment: ? NOTE Any condition resulting [...] Ernst MD LAB - CHEMISTRY JASON SANCHEZ [facility] Organization Address City/State/ZIP Co de Phone Number [address] [phone] * CK + CKMB PANEL (01/12/2013 4:46 PM CDT) Only the most recent of4 resultswithin the time period is included. CK Total 81 30 - 200 Units/L [facility] CK-MB 1.4 0.0 - 6.6 ng/mL [facility] Comment: ? CKMB Reference Range 6.6 [...] - CHEMISTRY JASON SANCHEZ Performing Organization Address [facility] Co de Phone Number [address] [phone] * C-REACTIVE PROTEIN (01/12/2013 3:44 AM CDT) Pathologist [facility] C-Reactive Protein < 0.5 <or= 0.5 mg/dL [facility] Venous blood specimen (specimen) 01/12/2013 3:44 AM CDT 01/12/2013 4:32 AM CDT Arturo Ernst MD LAB - CHEMISTRY JASON SANCHEZ Performing Organization Address [facility] de Phone Number [address] [phone] * B-TYPE NATRIURETIC PEPTIDE (01/12/2013 3:44 AM CDT) [facility] BNP 77 SEE COMMENT pg/mL [facility] Comment: A decision threshold of 100 [...] - CHEMISTRY JASON SANCHEZ Performing Organization Address [facility] Co de Phone Number [address] [phone] * (ABNORMAL) HEMOGLOBIN A1C (01/12/2013 2:30 AM CDT) Hemoglobin A1c 7.1(H) 4.4 - 6.3 % [facility] Estimated Average Glucose 157 mg/dL [facility] Blood specimen (specimen) 01/12/2013 2:30 AM CDT 01/12/2013 2:55 AM CDT Arturo Ernst MD LAB - CHEMISTRY JASON SANCHEZ Performing Organization Address [facility] de Phone Number [address] [phone] * (ABNORMAL) LIPID PROFILE (01/12/2013 2:30 AM CDT) Cholesterol Total 167 <200 mg/dL [facility] HDL 33(L) > OR = 40 mg/dL [facility] Comment: ATP III classification of HDL cholesterol: <40 mg/dL Low; considered a major risk factor >60 mg/dL High; considered a negative risk factor Triglycerides 228(H) <150 mg/dL [facility] Comment: ATP III classification of Triglycerides: < 150 mg/dL ??Normal triglycerides 150-199 mg/dL Borderline-high triglycerides 200-400 mg/dL High triglycerides > 500 mg/dL ??Very high triglycerides LDL Calculated 88 0 - 100 mg/dL [facility] Comment: ATP III classification of LDL cholesterol: <100 mg/dL ??Optimal 100-129 Near optimal/above optimal 130-159 Borderline high 160-189 High >190 ?? Very high Venous blood specimen (specimen) 01/12/2013 2:30 AM CDT 01/12/2013 2:55 AM CDT Arturo Ernst MD LAB - CHEMISTRY ORDRachael SANCHEZ Performing Organization Address [facility] Co de Phone Number [address] [phone] * URINALYSIS REFLEX TO MICROSCOPIC NO CULTURE (01/11/2013 6:30 PM CDT) Color UA YELLOW STRW,YELLOW [facility] Clarity UA CLEAR CLEAR [facility] Specific [place] Urine 1.012 1.001 - 1.030 [facility] pH UA 6.5 5.0 - 8.0 [facility] Protein UA NEGATIVE <20 mg/dL [facility] Glucose UA NEGATIVE NEGATIVE mg/dL [facility] Ketones NEGATIVE NEGATIVE mg/dL [facility] Bilirubin UA NEGATIVE NEGATIVE mg/dL [facility] Blood UA NEGATIVE NEGATIVE [facility] Nitrite UA NEGATIVE NEGATIVE [facility] Leukocyte Esterase NEGATIVE NEGATIVE [facility] Urobilinogen UA < 2.0 <2.0 mg/dL [facility] UA Micro Reflex NO [facility] Urine specimen (specimen) URINE SPECIMEN OBTAINED BY CLEAN CATCH PROCEDURE / Unknown 01/11/2013 6:30 PM CDT 01/11/2013 7:04 PM CDT Heike Tavera MD LAB - URINALYSIS ORD ERABLES Performing Organization Address City/[facility]/ZIP Co de Phone Number [address] [phone] * XR CHEST 1VW PORTABLE (01/11/2013 5:19 [...] Ernst MD ECHOCARDIOGRAPHY [employer] IANT Care Teams Network Field Engineer Relationship Specialty Start Date End Date Júnior Puente MD [address] [place] [address] PCP - General 03/02/14
--- OUTSIDE RECORDS SUMMARY | 2024-07-07 14:01 | XMS_ITS | Continuity of Care Document ---
Author Organization Merged with [facility] Address [address] [place] [address] Phone Care Team Providers Care Hospice Admitting Clerk Name Role Phone Dumont OD, Maicol Unavailable Unavailable Procedures Procedure Date CL Replacement - Vistakon Disp W/BW Soft Tax - Medical Eye Exam, New Patient Refraction Advance Directives Directive Yes / No Effective Date File Name No Information Encounters Encounter Description Practice Location Reason(s) For Visit Diagnoses Date Provider Providers Copied on Encounter [facility], [address] [place] [address] [address], [place], [place], [id number], tel:[phone] [facility] No Information Sep-2 8-200 7 Dumont OD Maicol. [address] , [address], [place], [place], [facility], [place]. tel:[phone] [facility], [address] [place] [address] [address], [place], [place], [id number], tel:[phone] [facility] No Information Sep-1 3-200 7 Dumont OD Maicol. [address] , [address], [place], [place], [facility], [place]. tel:[phone] Referring Provider: Bharat Gurrola MD F, [address] [facility], [place], [address]. tel:[phone] Family History Family Member Type Diagnosis Age [...]
--- OUTSIDE RECORDS SUMMARY | 2024-07-07 14:01 | XMS_ITS | CONTINUITY OF CARE DOCUMENT ---
Author Name opalbacilio opalbacilio Address Unknown Organization [facility] Address [address] [address] [place] [address] Phone [phone] Care Team Providers Care Report Writer Name Role Phone Zachary Allan MD Unavailable BEE FRAZIER MD Unavailable [phone] BEE FRAZIER MD Unavailable [phone] PROBLEMS Condition Status Date Provider Notes Leg pain active Zachary Allan MD Tobacco use, quit 15 years ago active Zachary Allan MD Abdominal pain active Zachary Allan MD Renal artery stenosis completed - Zachary Allan MD Mesenteric artery stenosis active Zachary beck MD Diabetes mellitus, Type II active Zachary beck MD Hyperlipidemia active Zachary Allan MD PVC's active Zachary Allan MD CVA active Zachary Allan MD Carotid artery disease active Zachary Allan MD HTN essential active Zachary Allan MD Family History of CVA or Stroke: active Tristan Allan MD Family History of CVA or Stroke: active Tristan Allan MD Cardiology examination active Zachary Allan MD ENCOUNTERS Date Type Provider Location Encounter Diag nosis - In-person encounter Office Visit Zachary Allan MD [facility] - In-person encounter Office Visit Zachary Allan MD [facility] Renal artery stenosis - In-person encounter Office Visit Zachary Allan MD [facility] Cardiology examination - In-person encounter Office Visit Zachary Allan MD [facility] - In-person encounter Office Visit Zachary Allan MD [facility] - In-person encounter Office Visit Zachary Allan MD [facility] Cardiology examinationFamily History of CVA or [...] blood pressure, diastolic 72 mm[Hg] Kr isty [place] blood pressure, systolic 114 mm[Hg] Kri sty Norberto pulse rate 92 /min Yola [place] oxygen saturation, oximetry 98 % Yola [place] respiratory rate E&M 19 /min Yola [place] weight E&M 150 [lb_av] Yola [place] height E&M 62 [in_i] Yola [place] Body Mass Index (Ratio) 28.35 kg/m2 Shannan Allan MD oxygen saturation, oximetry 98 % Olenastity Lisa blood pressure, diastolic 84 mm[Hg] Ch astity Lisa blood pressure, systolic 137 mm[Hg] Olena stity Lisa pulse rate 89 /min Chastity Lisa respiratory rate E&M 16 /min Olenastit y Lisa weight E&M 155 [lb_av] [facility] (Ratio[facility] 27.98 kg/m2 Shannan [...] 0-149 High cholesterol, serum 157 mg/dL [facility] [phone]/05/0 7 calcium, serum 9.6 mg/dL [facility] 8.7-10.3 7 carbon dioxide, venous blood 24 mmol/L [facility] 20-29 7 chloride, serum 103 mmol/L [facility] 96-106 7 sodium, serum 144 mmol/L [facility] [phone]/05/0 7 urea nitrogen/creatinin e ratio, serum 29 [...] Estab. 7 platelet count 195 X10E3/UL [facility] [phone]/05/0 7 red blood cell distribution width 14.3 [...] Policy type / Coverage type Brandin red green party [place]IC[place] B Medicare [id number] [employer] [id number] ADVANCE DIRECTIVES Name Date DISCUSSED - NO DECISION MADE TREATMENT PLAN Date Name Performer [id number],S, H er updated medication list for this problem includes: Rosuvastatin 40 Mg Tablet (Rosuvastatin) Zachary Allan MD [id number],B,I s very good. No evidence of renal [...] ..... Once a day Zachary Allan MD [id number],C,N o evidence of renal artery stenosis from the renal artery scan. Zachary Allan MD [id number],S,P er PCP H er updated medication list for this problem includes: Tradjenta 5 Mg Tablet (Linagliptin) ..... Once a day Aspirin 81 Mg Tablet,delayed Release (dr/ec) (Aspirin) ..... Once a day Quinapril 5 Mg Tablet (Quinapril) ..... Once a day Ozempic 0.25 Mg Or 0.5 Mg(2 Mg/1.5 Ml) Pen Injector (Semaglutide) ..... Take 0.5 mg subcutaneously once a week Zachary Allan MD [id number],B,T his is better because she had a knee replacement which she is getting used to. Zachary Allan MD [id number],C, H er updated medication list for this problem includes: Rosuvastatin 40 Mg Tablet (Rosuvastatin) Zachary Allan MD [id number],C,Per Dr. Armstrong. Zachary Allan MD [id number],C,Not significa nt. Zachary Allan MD [id number],S,N o indication to intervene. Continue current medications. Zachary Allan MD Cardiology: s /p remote stenting. W ill check carotid duplex. Duran Bhat NP Cardiology: S ymptoms at baseline Duran [...] O btain results of CT scan [facility] barbara has been having abdominal pain [...] nt :Obtain results of CT scan from [facility] atfarhad has been having abdominal pain and distension that worsens with eating for the past 4-5 months Zachary Allan MD Date Name EKG Carotid Duplex Bilat eral Complete Echo Renal Artery Duplex Complete Echo Renal Artery Duplex PROTHROMBIN TIME WIT H INR LIPID PANEL CBC (INCLUDES DIFF/P LT) BASIC METABOLIC PANE L W/EGFR Renal Angio - [facility] Arterial Duplex Bi-L ower EX HISTORY OF PROCEDURES Procedure Date Procedure Name Provider Procedure Notes S tatus EKG Zachary Allan MD completed EKG Zachary Allan MD completed
--- OUTSIDE RECORDS SUMMARY | 2024-07-07 14:01 | XMS_ITS | Referral Summary ---
Author Organization [facility] [address] Address [address] [place] [address] Care Team Providers Care Mobile Home Laborer Name Role Phone Jad Fisher MD Primary Care Provider [phone] Chang Ward MD Unavailable Encounters Date Type Department Care Team Description 06/28/2024 Telephone [facility] Specialists of [address] [place] [phone] Raj Stoddard MD [employer] 06/22/2024 11:00 AM RESIDENTIAL GLAZIER Office Visit [facility] 6th [place] [address] Syeda Fernandez MD Arthritis of carpometacarpal (CMC) joint of left thumb (Primary Dx); Trigger finger of left thumb; Left carpal tunnel syndrome 06/08/2024 11:15 AM RESIDENTIAL GLAZIER Office Visit [facility] Specialists of [address] [place] [phone] Raj Stoddard MD Type 2 diabetes mellitus with hyperglycemia, with long-term current use of insulin (HCC) (Primary Dx) 05/08/2024 Telephone [facility] Specialists of [address] [place] [phone] Raj Stoddard MD Forms/questionnaires ([employer]) 05/03/2024 Telephone [facility] [address] [place] [phone] Jad Fisher MD Appointment Request 04/29/2024 11:22 AM RESIDENTIAL GLAZIER - 05/01/2024 11:02 AM RESIDENTIAL GLAZIER Hospital Encounter [facility] [address] [place] [address] Ruel Fernández MD Sinha, Chandni, MD Sargsyan, Narine, MD Troponin level elevated (Primary Dx); Congestion of upper respiratory tract; Urinary frequency; Generalized weakness; COVID-19 Discharge Disposition: Discharge to home or self care 04/29/2024 11:04 AM RESIDENTIAL GLAZIER - 04/29/2024 11:59 PM RESIDENTIAL GLAZIER Hospital Encounter [facility] Emergency, Room R Discharge Disposition: Discharge to home or self care 04/25/2024 Telephone [facility] [address] [phone] Jad Fisher MD Medical Question/Miscellaneous 04/21/2024 Telephone [facility] [address] [phone] Jad Fisher MD Medical Question/Miscellaneous 04/12/2024 10:30 AM RESIDENTIAL GLAZIER Office Visit [facility] [address] [phone] Mer Simpson NP Age-related osteoporosis without current pathological fracture (Primary Dx); BMI 29.0-29.9,adult; Hypertension associated with stage 2 chronic kidney disease due to type 2 diabetes mellitus ([facility]/HCC) ([facility]) 04/07/2024 Telephone [facility] [address] [phone] Jad Fisher MD Medical Question/Miscellaneous 04/06/2024 Telephone [facility] [address] [phone] Jad Fisher MD Medical Question/Miscellaneous [...] 04/12/2024 Assessment & Plan (04/12/2024 11:22 AM RESIDENTIAL GLAZIER): Started on Fosamax. Continue taking vitamin D. [...] surgery. Updated referral and reached out to [facility] orthopedic surgery Dr. Ward, plan [...] Rosuvastatin 40mg. Last lipid panel: 02/19/23 LDL=73, QX=462. No changes at this time. Assessment & Plan (08/12/2023 11:01 AM RESIDENTIAL GLAZIER): Chronic, stable LDL cholesterol goal Continue rosuvastatin Assessment & Plan (05/04/2023 10:39 AM RESIDENTIAL GLAZIER): Chronic problem, currently taking Rosuvastatin 40mg. Last lipid panel: 02/19/23 LDL=73, VC=298. No changes at this time. Assessment & Plan (01/19/2023 10:03 AM CDT): Chronic, well controlled Continue Rosuvastatin Assessment & Plan (08/18/2022 10:33 AM CDT): Chronic problem, currently taking Rosuvastatin 40mg. Last lipid panel: 01/30/22 LDL=62, DV=746. No changes at this time. Hypertension associated with stage 2 chronic kidney disease due to type 2 diabetes mellitus ([facility]) 08/17/2022 Assessment & Plan (04/12/2024 11:42 AM RESIDENTIAL GLAZIER): Normotensive. Continue taking lisinopril. Red flags reviewed. Assessment & Plan (12/16/2023 10:21 AM CDT): Chronic problem, BP controlled on current lisinopril 40mg daily. No changes at this time. Assessment & Plan (09/13/2023 11:43 AM CDT): Normotensive. Continue lisinopril, clonidine. Will continue monitor. Assessment & Plan (05/04/2023 10:39 AM RESIDENTIAL GLAZIER): Chronic problem, BP controlled on current lisinopril 40mg daily. No changes at this time. Assessment & Plan (08/18/2022 10:33 AM CDT): Chronic problem, BP controlled on current quinapril 40mg daily. No changes at this time. Mild cognitive impairment 05/28/2022 Assessment & Plan (05/28/2022 4:07 PM RESIDENTIAL GLAZIER): Patient started on donepezil around 01/2022 and [...] due to type 2 diabetes mellitus ( [facility]) 03/17/2021 Assessment & Plan (12/16/2023 10:21 AM CDT): Chronic problem. Currently taking Gabapentin 300mg bid. Reviewed foot care; needs to lotion daily. Aware to check feet nightly, not to go barefoot. Assessment & Plan (08/12/2023 11:00 AM RESIDENTIAL GLAZIER): Foot care discussed Continue gabapentin Assessment & Plan (05/04/2023 11:00 AM RESIDENTIAL GLAZIER): Chronic problem. Currently taking Gabapentin 300mg bid. Aware to check feet nightly & not go barefoot. Assessment & Plan (01/19/2023 10:01 AM CDT): Foot care discussed Increase gabapentin 300 mg tid Pain of toe of right foot 03/17/2021 Cramps of lower extremity 09/16/2020 Mesenteric artery stenosis ([facility]/HCC) 09/16/2020 Renal artery stenosis 09/16/2020 Chest pain [...] aspirin starting Wednesday 11/22. Coronary arteriosclerosis in [place] artery 02/06 Overview (09/11/2016): CAD in [place] artery Impairment of balance 02/07/2016 Overview (09/11/2016): [...] UNCNTRLD Assessment & Plan (06/08/2024 12:04 PM RESIDENTIAL GLAZIER): Chronic, uncontrolled with a higher A1c Importance [...] placed. Assessment & Plan (08/12/2023 11:00 AM RESIDENTIAL GLAZIER): Chronic, stable but not at goal Importance of diet and exercise discussed Continue current regimen with Levemir, Humalog, Ozempic and Farxiga Patient interested in an insulin pump Will get C-peptide, fasting glucose and galen antibody If appropriate, will start process for insulin pump Assessment & Plan (05/04/2023 10:58 AM RESIDENTIAL GLAZIER): Chronic problem. A1c improved from 8.0% 01/2023 [...] hours). Assessment & Plan (07/09/2022 4:06 PM RESIDENTIAL GLAZIER): Hba1c was Lab Results Component Value Date [...] Send me a message every week, via Jamgle, to let me know how you are doing with your sugars and for us to look at your sugars on Freestyle Rafaela Cardiac arrhythmia 01/13/2013 Overview (05/04/2021): History - Overview: History - Cerebral infarction 01/13/2013 Overview (05/04/2021): R caudate and putamen stroke Irregular heart rhythm 01/13/2013 Overview (05/04/2021): Overview: History - Type 2 diabetes mellitus with diabetic neuropath y ([facility]) 01/13/2013 Assessment & Plan (09/13/2023 [...] stroke Assessment & Plan (05/28/2022 4:08 PM RESIDENTIAL GLAZIER): Continues tight control of BP, statin and [...] often do you attend chur ch or jainism services? 1 to 4 times per year 08/20/2022 Do you belong to any clubs o r organizations such as taoism groups, unions, fraternal or athletic groups, or [...] staff should administer the PHQ-9) 0 06/08/2024 [facility] - Occupational [...] place to sleep or slept in a [place] health care facility (including now)? No 08/20/2022 Personal Safety Answer Date Recorded Have you ever been in or are you currently in a harmful physical or emotional relationship or is someone making you feel afraid or unsafe? Denies 04/29/2024 Comments No Sex and Gender Information Value Date Recorded Sex Assigned at Not on file Legal Sex Female 6:13 AM RESIDENTIAL GLAZIER Gender Identity Not on file Sexual Orientation Straight 06/08/2024 11 :24 AM RESIDENTIAL GLAZIER Last Filed Vital Signs Vital Sign Reading Time Taken Comments Blood Pressure 132/70 06/08/2024 11:34 AM RESIDENTIAL GLAZIER Pulse 88 06/08/2024 11:34 AM RESIDENTIAL GLAZIER Temperature 36.2 ??C (97.2 ??F) 05/01/2024 7:45 AM CS T Respiratory Rate 20 06/08/2024 11:34 AM RESIDENTIAL GLAZIER Oxygen Saturation 97% 05/01/2024 7:45 AM RESIDENTIAL GLAZIER Inhaled Oxygen Concentration - - Weight 76.8 kg (169 lb 6.4 oz) 06/08/2024 11:34 AM RESIDENTIAL GLAZIER Height 154.9 cm (5' 1 ) 06/08/2024 11:34 AM RESIDENTIAL GLAZIER Body Mass Index 32.01 06/08/2024 11:34 AM RESIDENTIAL GLAZIER Plan of Treatment Not on file Medical Devices Implanted Type Area [employer] Engineer Device Identifier Shelf Expiration Date Model / Serial / Lot [employer] Dvr [id number] Crosslock [place] Screw Hole Fix Angle Radius Left 1318-21-050 - [id number] Implanted:Qty: 1 on 11/26/2022 by Chang Ward MD at [facility] Left: Wrist [employer] 1318--050 / / [employer] Dvr 2.7mm 18mm 3 Lead Thread Lock Taper Head Radius Distal Volar 131- - [id number] Implanted:Qty: 1 on 11/26/2022 by Chang Ward MD at [facility] Left: Wrist [employer] 1312-- / / [employer] Dvr 2.7mm 20mm Lock Spine Screw Bone Nonsterile 131--120 - [id number] Implanted:Qty: 2 on 11/26/2022 by Chang Ward MD at [facility] Left: Wrist [employer] 1312-27-120 / / [employer] 2.7mm 13mm Nonlock Low Profile Radius Distal Screw Bone [id number] - [id number] Implanted:Qty: 1 on 11/26/2022 by Chang Ward MD at [facility] Left: Wrist [employer] [id number] / / [employer] Dvr 2.7mm 14mm Lock Cortical Screw Bone Nonsterile Latex Free 1311-27-114 - [id number] Implanted:Qty: 2 on 11/26/2022 by Chang Ward MD at [facility] Left: Wrist [employer] 1312-27-114 / / [employer] Dvr 2.7mm 13mm Lock 3 Lead Thread Crosslock Taper Head Radius 131-27- - [id number] Implanted:Qty: 1 on 11/26/2022 by Chang Ward MD at [facility] Left: Wrist [employer] 1312-27-113 / / Procedures Procedure Name Priority Date/Time Associated Diagnosis Comments POCT GLUCOSE Routine 06/08/2024 11:35 AM RESIDENTIAL GLAZIER Type 2 diabetes mellitus with hyperglycemia, with long-term current use of insulin (HCC) POCT HEMOGLOBIN A1C Routine 06/08/2024 1 1:35 AM RESIDENTIAL GLAZIER Type 2 diabetes mellitus with hyperglycemia, with long-term current use of insulin (HCC) POCT GLUCOSE DEVICE Routine 05/01/2024 7 :41 AM RESIDENTIAL GLAZIER EGFR Routine 05/01/2024 4:27 AM RESIDENTIAL GLAZIER DIFFERENTIAL AUTO Routine 05/01/2024 4:2 7 AM RESIDENTIAL GLAZIER COMPREHENSIVE METABOLIC PANEL Routine 05/01/2024 4:27 AM RESIDENTIAL GLAZIER CBC WITH AUTO DIFFERENTIAL Routine 05/01/2024 4:27 AM RESIDENTIAL GLAZIER PHOSPHORUS Routine 05/01/2024 4:27 AM RESIDENTIAL GLAZIER MAGNESIUM Routine 05/01/2024 4:27 AM RESIDENTIAL GLAZIER POCT GLUCOSE DEVICE Routine 05/01/2024 1 :55 AM RESIDENTIAL GLAZIER POCT GLUCOSE DEVICE Routine 04/30/2024 8 :40 PM RESIDENTIAL GLAZIER POCT GLUCOSE DEVICE Routine 04/30/2024 4 :10 PM RESIDENTIAL GLAZIER POCT GLUCOSE DEVICE Routine 04/30/2024 1 2:23 PM RESIDENTIAL GLAZIER POCT GLUCOSE DEVICE Routine 04/30/2024 8 :58 AM RESIDENTIAL GLAZIER PROCALCITONIN Routine 04/30/2024 8:21 AM RESIDENTIAL GLAZIER EGFR Routine 04/30/2024 3:34 AM RESIDENTIAL GLAZIER COMPREHENSIVE METABOLIC PANEL Routine 04/30/2024 3:34 AM RESIDENTIAL GLAZIER PHOSPHORUS Routine 04/30/2024 3:34 AM RESIDENTIAL GLAZIER MAGNESIUM Routine 04/30/2024 3:34 AM RESIDENTIAL GLAZIER POCT GLUCOSE DEVICE Routine 04/30/2024 2 :18 AM RESIDENTIAL GLAZIER POCT GLUCOSE DEVICE Routine 04/30/2024 1 2:17 AM RESIDENTIAL GLAZIER POCT GLUCOSE DEVICE Routine 04/29/2024 1 0:16 PM RESIDENTIAL GLAZIER POCT GLUCOSE DEVICE Routine 04/29/2024 8 :47 PM RESIDENTIAL GLAZIER TROPONIN T HIGH-SENSITIVITY 6-HOUR Timed 04/29/2024 7:12 PM RESIDENTIAL GLAZIER TROPONIN T HIGH-SENSITIVITY 4-HR Timed 04/29/2024 5:32 PM RESIDENTIAL GLAZIER POCT GLUCOSE DEVICE Routine 04/29/2024 4 :43 PM RESIDENTIAL GLAZIER TROPONIN T HIGH-SENSITIVITY 2-HOUR Timed 04/29/2024 4:01 PM RESIDENTIAL GLAZIER POCT GLUCOSE DEVICE Routine 04/29/2024 3 :39 PM RESIDENTIAL GLAZIER TROPONIN T HIGH-SENSITIVITY SERIES (BASELINE, 2HR, 4HR, 6HR) STAT 04/29/2024 1:27 PM RESIDENTIAL GLAZIER STREPTOCOCCUS GROUP A PCR STAT 04/29/2024 1:27 PM RESIDENTIAL GLAZIER URINALYSIS, MICROSCOPIC ONLY STAT 04/29/2024 12:44 PM RESIDENTIAL GLAZIER URINALYSIS AND REFLEX TO MICROSCOPIC AND CULTURE STAT 04/29/2024 12:44 PM RESIDENTIAL GLAZIER XR CHEST PA LATERAL 2 VIEWS ED 04/29/2024 11:42 AM RESIDENTIAL GLAZIER PRO B-TYPE NATRIURETIC PEPTIDE STAT 04/29/2024 11:35 AM RESIDENTIAL GLAZIER TROPONIN T HIGH-SENSITIVITY Routine 04/29/2024 11:35 AM RESIDENTIAL GLAZIER RESPIRATORY PATHOGEN PANEL STAT 04/29/2024 11:35 AM RESIDENTIAL GLAZIER EGFR STAT 04/29/2024 11:30 AM RESIDENTIAL GLAZIER DIFFERENTIAL AUTO STAT 04/29/2024 11: 30 AM RESIDENTIAL GLAZIER COMPREHENSIVE METABOLIC PANEL STAT 04/29/2024 11:30 AM RESIDENTIAL GLAZIER CBC WITH AUTO DIFFERENTIAL STAT 04/29/2024 11:30 AM RESIDENTIAL GLAZIER ECG 12-LEAD STAT 04/29/2024 11:29 AM RESIDENTIAL GLAZIER COLONOSCOPY REPORT Routine 04/04/2024 10 :21 AM [...] Read Routine (OP Routine) 04/16/2023 12:56 PM RESIDENTIAL GLAZIER Encounter for screening mammogram for malignant neoplasm of breast from Last 3 Months or Most Recently Relevant to Health Maintenance Results * (ABNORMAL) POCT hemoglobin A1c (06/08/2024 11:35 AM RESIDENTIAL GLAZIER) Hemoglobin A1C, POC 7.7 4.0 - 5.6 % Comment:None Capillary blood 06/08/2024 1 1:35 AM RESIDENTIAL GLAZIER us Raj Stoddard MD POINT OF CARE TEST ORDERABLES Fi nal Result * (ABNORMAL) POCT glucose (06/08/2024 11:35 AM RESIDENTIAL GLAZIER) Glucose Blood, POC 214 mg/dL Comment:None Blood 06/08/2024 11:3 5 AM RESIDENTIAL GLAZIER us Raj Stoddard MD POINT OF CARE TEST ORDERABLES Fi nal Result * POCT glucose (05/01/2024 7:41 AM RESIDENTIAL GLAZIER) Glucose, POC 179 70 - 199 mg/dL Blood 05/01/2024 7:41 AM RESIDENTIAL GLAZIER 05/01/2024 7:41 AM RESIDENTIAL GLAZIER us Amanda Walker MD LAB POCT ORDERABLES - DEVICE Final Result Performing Organization Address City/State/[facility] Co de Phone Number [facility] ([facility]) 1 [facility] Department [place] [address] * eGFR (05/01/2024 4:27 AM RESIDENTIAL GLAZIER) eGFR 78 >=60 mL/min/1. 73 m2 Comment: [...] last reviewed 2021. Blood 05/01/2024 4:27 AM RESIDENTIAL GLAZIER 05/01/2024 5:47 AM RESIDENTIAL GLAZIER us Bro Jameson MD LAB BLOOD ORDERABLES Final Resu lt [facility] 1 [facility] Department [place] [address] * Differential, auto (05/01/2024 4:27 AM RESIDENTIAL GLAZIER) Neutrophil abs 4.3 1.5 - 6.5 K/cumm [...] revised on 2017. Blood 05/01/2024 4:27 AM RESIDENTIAL GLAZIER 05/01/2024 5:47 AM RESIDENTIAL GLAZIER Bro Jameson MD LAB BLOOD ORDERABLES Final Resu lt Performing Organization Address City/[facility]/ZIP Co de Phone Number [facility] ([place]) 1 [facility] Department [place] [address] * CBC with auto differential (05/01/2024 4:27 AM RESIDENTIAL GLAZIER) WBC 6.4 3.8 - 9.9 K/cumm Hgb [...] [facility] ([place]) Blood 05/01/2024 4:27 AM RESIDENTIAL GLAZIER 05/01/2024 5:47 AM RESIDENTIAL GLAZIER us Bro Jameson MD LAB BLOOD ORDERABLES Final Resu lt [facility] ([place]) 1 [facility] [place] [address] * Phosphorus (05/01/2024 4:27 AM RESIDENTIAL GLAZIER) Pathologist [facility] Phosphorus, pl 4.2 2.3 - 4.5 mg/dL Blood 05/01/2024 4:27 AM RESIDENTIAL GLAZIER 05/01/2024 5:47 AM RESIDENTIAL GLAZIER Bro Jameson MD LAB BLOOD ORDERABLES Final Resu lt [facility] ([place]) 1 [facility] [place] [address] * Magnesium (05/01/2024 4:27 AM RESIDENTIAL GLAZIER) [facility] Magnesium 1.8 1.4 - 2.5 mg/dL Blood 05/01/2024 4:27 AM RESIDENTIAL GLAZIER 05/01/2024 5:47 AM RESIDENTIAL GLAZIER Bro Jameson MD LAB BLOOD ORDERABLES Final Resu lt [facility] ([place]) 1 [facility] [place] [address] * (ABNORMAL) Comprehensive metabolic panel (05/01/2024 4:27 AM RESIDENTIAL GLAZIER) [facility] Sodium 137 135 - 145 mmol/L Potassium, pl 3.5 3.3 - 4.9 mmol/L [facility] ([facility]) Chloride 101 97 - 110 mmol/L [facility] ([place]) CO2 25 22 - 32 mmol/L [facility] ([facility]) Anion gap 11 2 - 15 mmol/L [facility] ([place]) BUN 15 6 - 25 mg/dL [facility] ([place]) Creatinine 0.80 0.60 - 1.10 mg/dL [facility] ([place]) Glucose 131 70 - 199 mg/dL [facility] ([place]) Comment: Interpretive Data Fasting [...] 9.0 8.5 - 10.3 mg/dL [facility] ([place]) Bilirubin, total 0.6 0.1 - 1.2 mg/dL [facility] ([place]) Protein, pl 6.1(L) 6.5 - 8.5 g/dL [facility] ([place]) Albumin 3.5 3.5 - 5.0 g/dL [facility] ([place]) Alk phos 88 40 - 130 Units/L [facility] ([place]) ALT 18 7 - 45 Units/L [facility] ([place]) AST 19 10 - 45 Units/L [facility] ([place]) Blood 05/01/2024 4:27 AM RESIDENTIAL GLAZIER 05/01/2024 5:47 AM RESIDENTIAL GLAZIER us Bro Jameson MD LAB BLOOD ORDERABLES Final Resu lt Performing Organization Address City/[facility]/ZIP Co de Phone Number [facility] 1 [facility] [place] [address] * POCT glucose (05/01/2024 1:55 AM RESIDENTIAL GLAZIER) [facility] Signature Glucose, POC 131 70 - 199 mg/dL Blood 05/01/2024 1:55 AM RESIDENTIAL GLAZIER 05/01/2024 1:55 AM RESIDENTIAL GLAZIER us Amanda Walker MD LAB POCT ORDERABLES - DEVICE Final Result Performing Organization Address City/[facility]/ZIP Co de Phone Number [facility] ([facility]) 1 [facility] [employer] [place] [address] * (ABNORMAL) POCT glucose (04/30/2024 8:40 PM RESIDENTIAL GLAZIER) Glucose, POC 245(H) 70 - 199 mg/dL Blood 04/30/2024 8:40 PM RESIDENTIAL GLAZIER 04/30/2024 8:40 PM RESIDENTIAL GLAZIER Amanda Walker MD LAB POCT ORDERABLES - DEVICE Final Result Performing Organization Address City/[facility]/ZIP Co de Phone Number [facility] ([place]) 1 [facility] [place] [address] * POCT glucose (04/30/2024 4:10 PM RESIDENTIAL GLAZIER) Glucose, POC 119 70 - 199 mg/dL Blood 04/30/2024 4:10 PM RESIDENTIAL GLAZIER 04/30/2024 4:10 PM RESIDENTIAL GLAZIER Amanda Walker MD LAB POCT ORDERABLES - DEVICE Final Result Performing Organization Address City/[facility]/ZIP Co de Phone Number [facility] ([place]) 1 [facility] [place] [address] * (ABNORMAL) POCT glucose (04/30/2024 12:23 PM RESIDENTIAL GLAZIER) Glucose, POC 249(H) 70 - 199 mg/dL Blood 04/30/2024 12:2 3 PM RESIDENTIAL GLAZIER 04/30/2024 12:23 PM RESIDENTIAL GLAZIER Amanda Walker MD LAB POCT ORDERABLES - DEVICE Final Result Performing Organization Address City/[facility]/ZIP Co de Phone Number [facility] ([place]) 1 [facility] [place] [address] * (ABNORMAL) POCT glucose (04/30/2024 8:58 AM RESIDENTIAL GLAZIER) Glucose, POC 207(H) 70 - 199 mg/dL Blood 04/30/2024 8:58 AM RESIDENTIAL GLAZIER 04/30/2024 8:58 AM RESIDENTIAL GLAZIER us Amanda Walker MD LAB POCT ORDERABLES - DEVICE Final Result Performing Organization Address City/[facility]/ZIP Co de Phone Number [facility] [employer]) 1 [facility] [employer] [place] [address] * Procalcitonin (04/30/2024 8:21 AM RESIDENTIAL GLAZIER) Procalcitonin 0.08 <=0.25 ng/mL Comment:Testing performed by : [facility], [facility]5 [facility], [facility] [place] [address] Blood 04/30/2024 8:21 AM RESIDENTIAL GLAZIER 04/30/2024 2:38 PM RESIDENTIAL GLAZIER us Bro Jameson MD LAB BLOOD ORDERABLES Final Resu lt Performing Organization Address City/[facility] Co de Phone Number [facility] ([employer]) 1 [facility] [employer] [place] [address] * eGFR (04/30/2024 3:34 AM RESIDENTIAL GLAZIER) eGFR 83 >=60 mL/min/1. 73 m2 Comment: [...] last reviewed 2021. Blood 04/30/2024 3:34 AM RESIDENTIAL GLAZIER 04/30/2024 4:32 AM RESIDENTIAL GLAZIER Bro Jameson MD LAB BLOOD ORDERABLES Final Resu lt [facility] 1 [facility] [place] [address] * Phosphorus (04/30/2024 3:34 AM RESIDENTIAL GLAZIER) Phosphorus, pl 3.2 2.3 - 4.5 mg/dL Blood 04/30/2024 3:34 AM RESIDENTIAL GLAZIER 04/30/2024 4:32 AM RESIDENTIAL GLAZIER Bro Jameson MD LAB BLOOD ORDERABLES Final Resu lt Performing Organization Address City/[facility] Co de Phone Number [facility] ([employer] 1 [facility] [employer] [address] * Magnesium (04/30/2024 3:34 AM RESIDENTIAL GLAZIER) Magnesium 1.6 1.4 - 2.5 mg/dL Blood 04/30/2024 3:34 AM RESIDENTIAL GLAZIER 04/30/2024 4:32 AM RESIDENTIAL GLAZIER Bro Jameson MD LAB BLOOD ORDERABLES Final Resu lt Performing Organization Address City/[facility] Co de Phone Number [facility] 1 [facility] [employer] [place] [address] * (ABNORMAL) Comprehensive metabolic panel (04/30/2024 3:34 AM RESIDENTIAL GLAZIER) Sodium 135 135 - 145 mmol/L Potassium, [...] [facility] ([place]) Blood 04/30/2024 3:34 AM RESIDENTIAL GLAZIER 04/30/2024 4:32 AM RESIDENTIAL GLAZIER us Bro Jameson MD LAB BLOOD ORDERABLES Final Resu lt [facility] ([place]) 1 [facility] Department [place] [address] * (ABNORMAL) POCT glucose (04/30/2024 2:18 AM RESIDENTIAL GLAZIER) Glucose, POC 217(H) 70 - 199 mg/dL Blood 04/30/2024 2:18 AM RESIDENTIAL GLAZIER 04/30/2024 2:18 AM RESIDENTIAL GLAZIER Marva Gandara MD LAB POCT ORDERABLES - DEVICE Fi nal Result Performing Organization Address City/[facility]/ZIP Co de Phone Number [facility] ([facility]) 1 [facility] [place] [address] * (ABNORMAL) POCT glucose (04/30/2024 12:17 AM RESIDENTIAL GLAZIER) Glucose, POC 235(H) 70 - 199 mg/dL Blood 04/30/2024 12:1 7 AM RESIDENTIAL GLAZIER 04/30/2024 12:17 AM RESIDENTIAL GLAZIER Marva Gandara MD LAB POCT ORDERABLES - DEVICE Fi nal Result Performing Organization Address [facility] Co de Phone Number [facility] ([facility]) 1 [facility] [place] [address] * (ABNORMAL) POCT glucose (04/29/2024 10:16 PM RESIDENTIAL GLAZIER) Glucose, POC 201(H) 70 - 199 mg/dL Blood 04/29/2024 10:1 6 PM RESIDENTIAL GLAZIER 04/29/2024 10:16 PM RESIDENTIAL GLAZIER Marva Gandara MD LAB POCT ORDERABLES - DEVICE Fi nal Result Performing Organization Address City/[facility] Co de Phone Number [facility] ([facility]) 1 [facility] [place] [address] * (ABNORMAL) POCT glucose (04/29/2024 8:47 PM RESIDENTIAL GLAZIER) Glucose, POC 244(H) 70 - 199 mg/dL Blood 04/29/2024 8:47 PM RESIDENTIAL GLAZIER 04/29/2024 8:47 PM RESIDENTIAL GLAZIER Marva Gandara MD LAB POCT ORDERABLES - DEVICE Fi nal Result Performing Organization Address [facility] Co de Phone Number [facility] (KARIME) 1 [facility] [place] [address] * (ABNORMAL) Troponin T high-sensitivity 6-hour (04/29/2024 7:12 PM RESIDENTIAL GLAZIER) Trop T hs 15(H) <=14 ng/L Comment: Interpretive Data For further hscTnT resources including the diagnostic algorithm and an aid in interpretation, copy and paste this link: https://nrl.testcatMediclinic International.org/show/hsTrop Current Interpretive Data last revised 2020. Trop T hs delta 1 ng/L [facility] (KARIME) Trop T hs interp Insignificant [facility] (KARIME) Blood 04/29/2024 7:12 PM RESIDENTIAL GLAZIER 04/29/2024 7:20 PM RESIDENTIAL GLAZIER Ruel Fernández MD LAB BLOOD ORDERABLES Final Resul t Performing Organization Address [facility] Co de Phone Number YAMILEX JHA (CONTINENTAL DIVIDE) 1 [facility] [place] [address] * Troponin T high-sensitivity 4-hour (04/29/2024 5:32 PM RESIDENTIAL GLAZIER) Trop T hs 14 <=14 ng/L Comment: Interpretive Data For further hscTnT resources including the diagnostic algorithm and an aid in interpretation, copy and paste this link: https://nrl.testcatMed[facility]lin[facility] International.org/show/hsTrop Current Interpretive Data last revised 2020. Trop T hs delta 0 ng/L [facility] (KARIME) Trop T hs interp Insignificant [facility] (KARIME) Blood 04/29/2024 5:32 PM RESIDENTIAL GLAZIER 04/29/2024 5:42 PM RESIDENTIAL GLAZIER Ruel Fernández MD LAB BLOOD ORDERABLES Final Resul t YAMILEX JHA (CONTINENTAL DIVIDE) 1 [facility] [place] [address] * POCT glucose (04/29/2024 4:43 PM RESIDENTIAL GLAZIER) Glucose, POC 155 70 - 199 mg/dL Blood 04/29/2024 4:43 PM RESIDENTIAL GLAZIER 04/29/2024 4:43 PM RESIDENTIAL GLAZIER Marva Gandara MD LAB POCT ORDERABLES - DEVICE Fi nal Result Performing Organization Address [facility]/ZIP Co de Phone Number YAMILEX JHA (CONTINENTAL DIVIDE) 1 [facility] [place] [address] * (ABNORMAL) Troponin T high-sensitivity 2-hour (04/29/2024 4:01 PM RESIDENTIAL GLAZIER) Trop T hs 15(H) <=14 ng/L Comment: Interpretive Data For further hscTnT resources including the diagnostic algorithm and an aid in interpretation, copy and paste this link: https://nrl.testcatalog.org/show/hsTrop Current Interpretive Data last revised 2020. Trop T hs delta 1 ng/L [facility] (CONTINENTAL DIVIDE) Trop T hs interp Insignificant [facility] (CONTINENTAL DIVIDE) Blood 04/29/2024 4:01 PM RESIDENTIAL GLAZIER 04/29/2024 4:08 PM RESIDENTIAL GLAZIER Ruel Fernández MD LAB BLOOD ORDERABLES Final Resul t YAMILEX JHA (CONTINENTAL DIVIDE) 1 [facility] [place] [address] * POCT glucose (04/29/2024 3:39 PM RESIDENTIAL GLAZIER) Glucose, POC 182 70 - 199 mg/dL Blood 04/29/2024 3:39 PM RESIDENTIAL GLAZIER 04/29/2024 3:39 PM RESIDENTIAL GLAZIER Result [facility] Marva Gandara MD LAB POCT ORDERABLES - DEVICE Fi nal Result Performing Organization Address [facility] Co de Phone Number YAMILEX JHA CONTINENTAL DIVIDE) 1 [place] [address] * Troponin T high-sensitivity series (baseline, 2hr, 4hr, 6hr) (04/29/2024 1:27 PM RESIDENTIAL GLAZIER) Pathologist [facility] Trop T hs 14 <=14 ng/L Comment: Interpretive Data For further hscTnT resources including the diagnostic algorithm and an aid in interpretation, copy and paste this link: https://nrl.testcatalog.org/show/hsTrop Current Interpretive Data last revised 2020. Blood 04/29/2024 1:27 PM RESIDENTIAL GLAZIER 04/29/2024 1:29 PM RESIDENTIAL GLAZIER Result [facility] Ruel Fernández MD LAB BLOOD ORDERABLES Final Resul t Performing Organization Address [facility] de Phone Number YAMILEX [facility] CONTINENTAL DIVIDE) 1 [facility] [place] [address] * Streptococcus Group A PCR Throat (04/29/2024 1:27 PM RESIDENTIAL GLAZIER) [facility] Strep A DNA Not Detected Not Detected Comment: This test is performed using the Receptor Xpert Group A Streptococcal Assay. This is [...] the performing laboratory. Throat 04/29/2024 1:27 PM RESIDENTIAL GLAZIER 04/29/2024 1:29 PM RESIDENTIAL GLAZIER Result [facility] Ruel Fernández MD LAB MICROBIOLOGY - GENERAL ORDER LEV Final Result Performing Organization Address City/[facility]/ZIP Co de Phone Number YAMILEX JHA (KARIME) 1 [facility] Department [place] [address] * (ABNORMAL) Urinalysis reflex to microscopic and culture Urine (04/29/2024 12:44 PM RESIDENTIAL GLAZIER) [facility] Signature Color, ur Yellow Yellow Clarity, ur [...] tendency for uric acid stone formation. Source: [facility] Blue Source Current Interpretive Data was last revised on [...] [facility] (KARIME) Urine 04/29/2024 12:4 4 PM RESIDENTIAL GLAZIER 04/29/2024 12:46 PM RESIDENTIAL GLAZIER Ruel Fernández MD LAB MICROBIOLOGY - GENERAL ORDER LEV Final Result YAMILEX JHA (KARIME) 1 [facility] Department [place] [address] * (ABNORMAL) Urinalysis, microscopic only (04/29/2024 12:44 PM RESIDENTIAL GLAZIER) WBC, ur 0-5 0 - 5 /HPF RBC, ur 0-2 0 - 2 /HPF [facility] (CONTINENTAL DIVIDE) Epithelial cells, squamous, ur 1-5 0 - 5 /HPF [facility] (CONTINENTAL DIVIDE) Mucous, ur Present(A) YAMILEX Beltran (CONTINENTAL DIVIDE) Culture Reflex Comment Reflex conditions for urine culture (WBC >10) not met. [facility] (CONTINENTAL DIVIDE) Urine 04/29/2024 12:4 4 PM RESIDENTIAL GLAZIER 04/29/2024 12:46 PM RESIDENTIAL GLAZIER Ruel Fernández MD LAB URINE ORDERABLES Final Resul t YAMILEX [facility] (CONTINENTAL DIVIDE) 1 [facility] Department [place] [address] * XR Chest Pa Lateral 2 Views (04/29/2024 11:42 AM RESIDENTIAL GLAZIER) Anatomical Region Laterality Modality Body, Chest N/A Computed Radiogr aphy 04/29/2024 12:1 7 PM RESIDENTIAL GLAZIER Narrative 04/29/2024 12:18 PM RESIDENTIAL GLAZIER EXAM DESCRIPTION: XR CHEST PA LATERAL 2 VIEWS REASON FOR STUDY: general weakness, URI symptoms, assess for PNA, other infectious signs ?? Patient presents to the ED per EMS [facility] from home where patient called EMS for weakness since Wednesday when she came home from [place], patient states she went to [facility] and got wet in the rain [...] PM T: ??04/29/2024 12:18 PM Report ID: [id number] Reading Location: ??[id number] Procedure Note Oniel Horvathory, DO - 04/29/2024 EXAM DESCRIPTION: XR CHEST PA LATERAL 2 VIEWS REASON FOR STUDY: general weakness, URI symptoms, assess for PNA, other infectious signs Patient presents to the ED per EMS [facility] from home where patient called EMSfor weakness since Wednesday when she came home from [place], patient statesandrew went to [facility] and got wet in the rain [...] Oniel Horvath M.D. MF: BLESSING Report ID: [id number] Reading Location: [id number] Ruel Fernández MD IMG XR PROCEDURES Final Result * (ABNORMAL) Troponin T high-sensitivity (04/29/2024 11:35 AM RESIDENTIAL GLAZIER) Trop T hs 15(H) <=14 ng/L Comment: Interpretive Data For further hscTnT resources including the diagnostic algorithm and an aid in interpretation, copy and paste this link: https://nrl.testcatalog.org/show/hsTrop Current Interpretive Data last revised 2020. Blood 04/29/2024 11:3 5 AM RESIDENTIAL GLAZIER 04/29/2024 11:38 AM RESIDENTIAL GLAZIER Ruel Fernández MD LAB BLOOD ORDERABLES Final Resul t [facility] (CONTINENTAL DIVIDE) 1 [facility] [place] [address] * (ABNORMAL) Pro B-type natriuretic peptide (04/29/2024 11:35 AM RESIDENTIAL GLAZIER) NT-proBNP 365(H) <=300 pg/mL Comment: Interpretive Comments: [...] Date: 2018. Blood 04/29/2024 11:3 5 AM RESIDENTIAL GLAZIER 04/29/2024 11:39 AM RESIDENTIAL GLAZIER Ruel Fernández MD LAB BLOOD ORDERABLES Final Resul t [facility] (KARIME) 1 [facility] Department [place] [address] * (ABNORMAL) Respiratory pathogen panel Nasopharyngeal (04/29/2024 11:35 AM RESIDENTIAL GLAZIER) Influenza A RNA Not Detected Not Detected Comment:Testing performed by : [address] [address] Influenza B RNA Not Detected Not Detected [facility] (KARIME) Comment:Testing performed by : [address] [address] RSV RNA Not Detected Not Detected [facility] (KARIME) Comment:Testing performed by : [address], [address] COVID-19 RNA Detected(A) Not Detected [facility] (KARIME) Comment:Testing performed by : [address] [address] Coronavirus 229E RNA Not Detected Not Detected [facility] (KARIME) Comment:Testing performed by : [address] [address] Coronavirus HKU1 RNA Not Detected Not Detected [facility] (KARIME) Comment:Testing performed by : [address] [address] Coronavirus NL63 RNA Not Detected Not Detected [facility] (KARIME) Comment:Testing performed by : [address], [address] Coronavirus OC43 RNA Not Detected Not Detected [facility] (KARIME) Comment:Testing performed by : [address], [address] Adenovirus DNA Not Detected Not Detected [facility] (KARIME) Comment:Testing performed by : [facility], [address] [place] [address], [address] Metapneumovirus RNA Not Detected Not Detected [facility] (KARIME) Comment:Testing performed by : [facility], [address] [place] [address]., [address] Rhinovirus/Enterov irus RNA Not Detected Not Detected [facility] (KARIME) Comment:Testing performed by : [facility], [address] [place] [address], [address] Parainfluenza 1 RNA Not Detected Not Detected [facility] (KARIME) Comment:Testing performed by : [facility], [address] [place] [address], [address] Parainfluenza 2 RNA Not Detected Not Detected [facility] (KARIME) Comment:Testing performed by : [facility], [address] [place] [address], [address] Parainfluenza 3 RNA Not Detected Not Detected [facility] (KARIME) Comment:Testing performed by : [facility], [address] [place] [address], [address] Parainfluenza 4 RNA Not Detected Not Detected [facility] (KARIME) Comment:Testing performed by : [facility], [address] [place] [address], [address] B. pertussis DNA Not Detected Not Detected [facility] (KARIME) Comment:Testing performed by : [address], [address] B. parapertussis DNA Not Detected Not Detected [facility] (KARIME) Comment:Testing performed by : [address], [address] C. pneumoniae DNA Not Detected Not Detected [facility] (KARIME) Comment:Testing performed by : [address], [address] M. pneumoniae DNA Not Detected Not Detected [facility] (KARIME) Comment: Interpretive Data [employer] FilmArray Respiratory Panel (RP2.1) assay is a [...] assay has FDA clearance for testing of NIGHT MONITOR swabs. ??The performance characteristics of this assay have been determined by [facility]. Current interpretive data was last revised on 2020. Testing performed by: [facility], [address] [place] [address], [place]., [address] Nasopharyngeal 04/29/2024 11 :35 AM RESIDENTIAL GLAZIER 04/29/2024 1:22 PM RESIDENTIAL GLAZIER Giovanna JHA (KARIME) - 04/29/2024 2:16 PM RESIDENTIAL GLAZIER Is the Patient experiencing symptoms consistent with COVID?->Yes Surveillance testing for transplant patient?->No Ruel Fernández MD LAB MICROBIOLOGY - GENERAL ORDER LEV Final Result YAMILEX JHA (CONTINENTAL DIVIDE) 1 [facility] Department [place] [address] CH * eGFR (04/29/2024 11:30 AM RESIDENTIAL GLAZIER) Pathologist [facility] eGFR 81 >=60 mL/min/1. 73 m2 Comment: [...] reviewed 2021. Blood 04/29/2024 11:3 0 AM RESIDENTIAL GLAZIER 04/29/2024 11:38 AM RESIDENTIAL GLAZIER Ruel Fernández MD LAB BLOOD ORDERABLES Final Resul t YAMILEX JHA (CONTINENTAL DIVIDE) 1 [facility] Department [place] [address] * Differential, auto (04/29/2024 11:30 AM RESIDENTIAL GLAZIER) Neutrophil abs 6.2 1.5 - 6.5 K/cumm [...] on 2017. Blood 04/29/2024 11:3 0 AM RESIDENTIAL GLAZIER 04/29/2024 11:39 AM RESIDENTIAL GLAZIER Ruel Fernández MD LAB BLOOD ORDERABLES Final Resul t Y[facility]X [facility] (KARIME) 1 [facility] Department [place] [address] * (ABNORMAL) CBC with auto differential (04/29/2024 11:30 AM RESIDENTIAL GLAZIER) WBC 8.1 3.8 - 9.9 K/cumm Hgb [...] [facility] (KARIME) Blood 04/29/2024 11:3 0 AM RESIDENTIAL GLAZIER 04/29/2024 11:39 AM RESIDENTIAL GLAZIER Ruel Fernández MD LAB BLOOD ORDERABLES Final Resul t YAMILEX JHA (KARIME) 1 [facility] [place] [address] * (ABNORMAL) Comprehensive metabolic panel (04/29/2024 11:30 AM RESIDENTIAL GLAZIER) Sodium 135 135 - 145 mmol/L Potassium, [...] S pecimen Blood 04/29/2024 11:3 0 AM RESIDENTIAL GLAZIER 04/29/2024 11:38 AM RESIDENTIAL GLAZIER us Ruel Fernández MD LAB BLOOD ORDERABLES Final Resul t [facility] (KARIME) 1 [facility] Department [place] [address] * ECG 12 lead (04/29/2024 11:29 AM RESIDENTIAL GLAZIER) 04/29/2024 11:2 9 AM RESIDENTIAL GLAZIER Narrative [facility] - 05/01/2024 8:40 AM RESIDENTIAL GLAZIER Vent Rate: 87 bpm RR Interval: 683 msec VT Interval: 200 msec QRS Duration: 94 msec QT Interval: 343 msec QTC Interval: 388 msec P-R-T Jadwin: 50 - -4 - 79 degrees IMPRESSION: SINUS RHYTHM SEPTAL MYOCARDIAL INFARCTION , OF INDETERMINATE AGE [40+ ms Q WAVE IN V1/V2] ABNORMAL ECG No change compared to prior EKG Electronically Signed By: Damien Chilel MD [facility] Ruel Fernández MD ECG ORDERABLES Final Result [facility] * Colonoscopy Report -[facility] (04/04/2024 10:21 AM [...] secondary osteoporosis. ?? Patient takes vitamin-D. ? 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 [...] PM T: ??03/23/2024 4:45 PM Report ID: [id number] Reading Location: ??[id number] Procedure Note Rebecca Syed MD - 03/23/2024 EXAM DESCRIPTION: DEXA AXIAL SKELETON BONE DENSITY 1 OR MORE SITES REASON FOR STUDY: 74 y/o year old F with given history of: Post menopausal status. History prior fracture and secondary osteoporosis. Patient takes vitamin-D. 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 TW: TW Report ID: [id number] Reading Location: [id number] Mer Simpson NP IMG DXA PROCEDURES Final R esult * (ABNORMAL) Albumin Creatinine Ratio, Urine (02/14/2024 11:16 AM CDT) Albumin Ur 59.2 mg/L Comment: Interpretive Data No reference range established. Current interpretive data was last revised 2018. Testing performed by: [facility], [address] [place] [address]., [address] Creatinine Ur 187.7 mg/dL YAMILEX JHA (KARIME) Comment: Interpretive Data No reference range established. Current interpretive data was last revised 2018. Testing performed by: [facility], [address] [place] [address]., [address] Albumin Creatinine Ratio, Ur 32(H) 1 - 29 mg/g YAMILEX JHA (KARIME) Comment:Testing performed by : [facility], [address] [place] [address]., [address] Urine 02/14/2024 11:1 6 AM CDT 02/14/2024 6:30 PM CDT Mer Simpson NP LAB URINE ORDERABLES Final Result Performing Organization Address City/State/[facility] Co de Phone Number YAMILEX JHA (KARIME) 1 [facility] Department [place] [address] * (ABNORMAL) Lipid panel (02/14/2024 11:16 AM [...] last revised on 2018. Testing performed by: [facility], [address] [place] [address]., [address] Triglycerides 175(H) <=149 mg/dL [facility] (KARIME) [...] last revised on 2018. Testing performed by: [facility], [address] [place] [address]., [address] HDL 34(L) >=40 mg/dL [facility] (KARIME) [...] last revised on 2018. Testing performed by: [facility], [address] [place] [address], [place]., [address] LDL, calculated 74 <=129 mg/dL YAMILEX JHA [...] last revised on 2024. Testing performed by: [facility], [address] [place] [address], [place]., [address] Non-HDL Cholesterol 104 mg/dL YAMILEX J[facility] (KARIME) [...] last revised on 2018. Testing performed by: [facility], [address] [place] [address]., [address] Chol/HDL ratio 4 REJI JHA (KARIME) Comment:Testing performed by : [facility], [address] [place] [address]., [address] Blood 02/14/2024 11:1 6 AM CDT 02/14/2024 6:30 PM CDT Mer Simpson NIGHT MONITOR LAB BLOOD ORDERABLES Final Result YAMILEX ABHIJEET (CONTINENTAL DIVIDE) 1 [facility] Department [place] [address] * DIABETES EYE EXAM (10/19/2023) SCRIBED DIABETIC DILATED EYE EXAM Normal Historical Provider HEALTH MAINTENANCE Final Result * Screening Mammogram Bilateral W Philipp (04/16/2023 12:56 PM RESIDENTIAL GLAZIER) Anatomical Region Laterality Modality Breast Bilateral Mammography 04/28/2023 2:18 PM RESIDENTIAL GLAZIER Impressions 04/28/2023 2:18 PM RESIDENTIAL GLAZIER There is no mammographic evidence of malignancy. A 1 year screening mammogram is recommended. BI-RADS: 1 - Negative. The patient has been or will be contacted. The patient will be entered into a reminder system with a target due date of 1 year for her next mammogram. Electronically signed by: Jaida Rothman M.D. Narrative 04/28/2023 2:18 PM RESIDENTIAL GLAZIER EXAMINATION: SCREENING MAMMOGRAM BILATERAL W PHILIPP ORDERING [...] Advance Directives For more information, please contact: [phone] Documents on File Type Date Recorded Patient Platform Consultant Expl anation ADVANCE DIRECTIVE 06/19/2022 6:10 PM * Full Code (Latest Code Status on File) Date Activated Date Inactivated Comments 04/29/2024 9:41 PM 05/01/2024 3:08 PM Care Teams Mobile Home Laborer Relationship Specialty Start Date End Date Jad Fisher MD [address] [place] [address] PCP - General Family Medicine 01/27/22 [place] [address] [address] Surgeon Orthopedic Surgery 11/26/22
--- OUTSIDE RECORDS SUMMARY | 2024-07-07 14:01 | XMS_ITS | Referral Summary ---
Author Organization [facility] Address [address] [place] [address] Care Team Providers Care A Auxiliary Name Role Phone Júnior Puente MD Primary Care Provider [phone] Source Comments [facility],non-owned Affiliates and Associated Physician Practices is amultiple site organization consisting of ambulatory clinics and hospital sitesin [place], [place], [place] and [place]. This disclosure is being madepursuant to the Care Everywhere program and may not contain all information available regarding this patient. Last updated 18.[facility] Allergies No known active allergies Medications * [...] Comments Blood Pressure 118/58 07/23/2020 11:30 AM LEAN MANUFACTURING ENGINEER Pulse 74 07/23/2020 11:30 AM LEAN MANUFACTURING ENGINEER Temperature 36.5 ??C (97.7 ??F) 07/23/2020 10:[address] Respiratory Rate 6 07/23/2020 11:30 AM LEAN MANUFACTURING ENGINEER Oxygen Saturation 94% 07/23/2020 11:30 AM LEAN MANUFACTURING ENGINEER Inhaled Oxygen Concentration - - Weight 70.8 kg (156 lb) 07/23/2020 8:34 AM LEAN MANUFACTURING ENGINEER Height 157.5 cm (5' 2 ) 07/23/2020 8:34 AM LEAN MANUFACTURING ENGINEER Body Mass Index 28.53 07/23/2020 8:34 AM LEAN MANUFACTURING ENGINEER Functional Status Functional Status Response Date of [...] PANEL (CALCIUM TOTAL) STAT 07/23/2020 8:14 AM LEAN MANUFACTURING ENGINEER Preop examination HEMOGLOBIN A1C Routine 01/12/2013 2:30 AM CDT from Last 3 Months or Most Recently Relevant to Health Maintenance Results * (ABNORMAL) BASIC METABOLIC PANEL (CALCIUM TOTAL) (07/23/2020 8:14 AM LEAN MANUFACTURING ENGINEER) BUN 13 7 - 26 mg/dL 07/23/2020 8:48 AM [facility] Creatinine 0.7 0.6 - 1.2 mg/dL 07/23/2020 8:48 AM [facility] Sodium 141 136 - 145 mmol/L 07/23/2020 8:48 AM [facility] Potassium 3.3(L) 3.5 - 4.5 mmol/L 07/23/2020 8:48 AM [facility] Chloride 106 98 - 107 mmol/L 07/23/2020 8:48 AM [facility] CO2 24 22 - 29 mmol/L 07/23/2020 8:48 AM [facility] Glucose 167(H) 70 - 115 mg/dL 07/23/2020 8:48 AM [facility] Calcium 8.5 8.4 - 10.2 mg/dL 07/23/2020 8:48 AM [facility] Anion Gap 14 8 - 18 07/23/2020 8:48 AM [facility] BUN/Creatinine Ratio 19 7 - 23 07/23/2020 8:48 AM LEAN MANUFACTURING ENGINEER [facility] Osmolality Calculated 296 270 - 300 mOsm/kg 07/23/2020 8:48 AM [facility] eGFR >60 >60 mL/min/1.7 3 m2 07/23/2020 8:48 AM [facility] Blood BLOOD SPECIMEN / Unknown Venipuncture / Unknown 07/23/2020 8:14 AM LEAN MANUFACTURING ENGINEER 07/23/2020 8:18 AM LEAN MANUFACTURING ENGINEER Rod Olivas MD LAB - CHEMISTRY JASON SANCHE[facility] [address] [place] [address], [facility] [phone] * (ABNORMAL) HEMOGLOBIN A1C (01/12/2013 2:30 AM CDT) Hemoglobin A1c 7.1(H) 4.4 - 6.3 % [facility] Estimated Average Glucose 157 mg/dL [facility] Blood specimen (specimen) 01/12/2013 2:30 AM CDT 01/12/2013 2:55 AM CDT Arturo Ernst MD LAB - CHEMISTRY JASON S[facility] [address] [place], [place] [id number] [place] [address] from Last 3 Months or Most Recently Relevant to Health Maintenance Care Teams A Auxiliary Relationship Specialty Start Date End Date Júnior Puente MD [address] [place], [place] [id number] PCP - General 03/02/14
[2024-07-07 15:11] LABS: Basophils Percent Auto 0.2 % (0.2-1.2); Eosinophils Percent Auto 0.2 % (0-4.4); Hematocrit 47.7 % (37.0-47.0); Hemoglobin 15.6 g/dL (12.0-15.0); Immature Granulocyte Absolute 0.05 K/mm3 (0.00-0.031); Immature Granulocyte Percent A 0.4 % (0-0.5); Lymphocytes Absolute Auto 1.05 K/mm3 (0.9-3.2); Lymphocytes Percent Auto 8.1 % (18.3-44.2); Mean Corpuscular HGB Conc 32.7 g/dl (32-36); Mean Corpuscular Hemoglobin 29.7 pg (26-34); Mean Corpuscular Volume 90.9 fl (80-100); Mean Platelet Volume 10.1 fl (7.4-10.4); Monocytes Absolute Auto 0.5 K/mm3 (0.1-0.6); Neutrophils Absolute Auto 11.3 K/mm3 (1.3-6.7); Neutrophils Percent Auto 87.1 % (45.5-73.1); Platelet Count Result 193 k/mm3 (150-375); Red Blood Count 5.25 M/mm3 (4.2-5.4); Red Cell Distribution Width 13.4 % (11.5-14.5); White Blood Count 12.9 K/mm3 (4.5-10.0)
[2024-07-07 15:19] LABS: Add Urine Microscopic? YES; Appearance Urine Clear (Clear); Bacteria Urine None Seen /hpf; Bilirubin Urine Negative (Negative); Blood Urine Negative (Negative); Color Urine Dark Yellow (Yellow); Glucose Urine UA 2+ mg/dL (Negative); Ketones Urine Trace mg/dL (Negative); Leukocyte Esterase Ur Negative LEU/UL (Negative); Nitrate Urine Negative (Negative); Non Pathogenic Casts 0-2; Protein Urine 1+ mg/dL (Negative); RBC Urine 0-2 /hpf (0-2); Specific Grav Ur 1.023 (1.001-1.035); Squamous Epithelial Cell Urine None Seen /hpf (Few); WBC Urine 0-5 /hpf (0-3)
[2024-07-07 15:23] LABS: Partial Thromboplastin Time 25.9 Seconds (22.3-36.8); Prothrombin Time 13.8 Seconds (11.1-14.7)
[2024-07-07 16:10] LABS: Alanine Aminotransferase 28 U/L (6-35); Albumin Level 4.1 g/dL (3.5-5.1); Alkaline Phosphatase 94 U/L (38-126); Anion Gap 13 mmol/L (4-12); Aspartate Amino Transferase 25 U/L (14-36); Bilirubin,Total 1.4 mg/dL (0.2-1.3); Blood Urea Nitrogen 26 mg/dL (7-17); Calcium 9.6 mg/dL (8.4-10.2); Carbon Dioxide 21 mmol/L (22-30); Chloride 101 mmol/L (98-107); Estimated CRCL calculation 56 ml/min; Estimated Glomerular Filt Rate > 60; Glucose 239 mg/dL (65-110); Lipase 79 U/L (23-300); Potassium 4.2 mmol/L (3.4-5.0); Sodium 135 mmol/L (137-145)
[2024-07-07] MEDS: ONDANSETRON INJ 4 MG/2 ML VIAL IV PUSH (16:15)
[2024-07-07 18:36] LABS: Lactic Acid Reflex 1.4 mmol/L (0.7-2.0)
--- NOTE | 2024-07-07 19:11 | PC.NURSE ---
Report received from KYUNG Burroughs. Assumed care of patient at this time.
[2024-07-07] MEDS: metroNIDAZOLE 500 MG/ISO 100ML 500 MG/100 ML BAG 100 MG IVPB (19:21)
[2024-07-07] MEDS: MORPHINE SULFATE (*CRX) 4 MG/ML INJ IV PUSH (19:21)
[2024-07-07] MEDS: LACTATED RINGERS 1,000 ML 999 ML IV CONT (19:21)
[2024-07-07 19:56] LABS: Toxigenic C. Diff POSITIVE (NEGATIVE)
--- NOTE | 2024-07-07 20:06 | PC.NURSE ---
Patient given jello and apple sauce upon request. Patient tolerating well. Patient states pain has improved. Patient has call light within reach.
[2024-07-07] MEDS: CIPROFLOXACIN 200 MG/D5W 100ML 100 ML 100 MG IVPB (20:26)
[2024-07-07 21:17] LABS: Anion Gap 11 mmol/L (4-12); Blood Urea Nitrogen 24 mg/dL (7-17); Carbon Dioxide 26 mmol/L (22-30); Chloride 99 mmol/L (98-107); Estimated CRCL calculation 49 ml/min; Estimated Glomerular Filt Rate > 60; Glucose 199 mg/dL (65-110); Potassium 4.1 mmol/L (3.4-5.0); Sodium 136 mmol/L (137-145)
--- NOTE | 2024-07-07 21:28 | P.HP_ITS ---
H&P: HPI History of Present Illness Date/Time: 07/07/24 21:28 Chief Complaint: Abdominal pain Narrative: This is a 74-year-old female with past medical history significant for type 2 diabetes mellitus, peripheral neuropathy, obesity, hypertension, DJD. Patient recently concluded course of antibiotics in the outpatient setting presents to the emergency room due to abdominal pain. Preliminary workup was significant for CT of abdomen and pelvis with colitis. Patient tested positive for Clostridium C difficile. Patient has been admitted for further evaluation management and treatment. EXAMINATION: CT abdomen pelvis w con DATE: 07/07/2024 16:43 INDICATION: Bloody diarrhea TECHNIQUE: Computed tomography (CT) of the abdomen and pelvis was performed with 100 mL Omnipaque-350 intravenous contrast. Automated exposure control and iterative reconstruction technique were employed. The dose-length product was 560.14 mGy-cm. COMPARISON: 12/06/2018 FINDINGS: Visualized lung bases are clear. Heart size is normal. Atherosclerotic coronary artery calcification is. No pericardial or pleural effusion. Cholecystectomy clips in the gallbladder fossa. Liver, pancreas and bilateral adrenal glands are normal. There are bilateral renal cysts the largest on the right measuring 2.5 cm. Unchanged likely benign partially rim calcified 1.2 cm cystic lesion in the spleen. There is wall thickening extending from the mid transverse the mid sigmoid colon with mild associated hyperemia to vasa recta consistent with colitis. There are few sigmoid diverticula without adjacent from trace stranding to suggest diverticulitis. Small bowel and appendix are normal. Partially decompressed bladder is unremarkable. The uterus is not identified and has likely been surgically resected. No free intraperitoneal gas or fluid. No pathologically enlarged abdominal or pelvic lymphadenopathy. There is calcified atherosclerosis without hemodynamically significant stenosis of the aorta and many of the other arteries. Mild lumbar dextroscoliosis with severe lumbar and lower thoracic spondylosis. There are bridging osteophytes at multiple levels consistent with diffuse idiopathic skeletal hyperostosis (DISH). IMPRESSION: 1. Colitis extending from the mid transverse to the mid sigmoid colon which could be infectious, inflammatory or ischemic in etiology. Review of Systems Review of Systems: Abdominal pain [facility] Past Medical History Medical History Diabetes Arthritis IBS (irritable bowel syndrome) Fatigue Colitis Abdominal pain Diarrhea ACL tear Tear of MCL (medial collateral ligament) of knee Surgical History Surgical History H/O: hysterectomy Total hysterectomy gallbladder removed Family History Family History Mother Hypertension Cerebrovascular accident Family history of diabetes mellitus in first degree relative Family history of coronary artery disease Grandparent Family history of lung cancer Family history of coronary artery disease Diabetes mellitus Father Cancer Aplastic anemia Sibling Diabetes mellitus Heart disease Other Family history of arthritis Family history of gout Family history of malignant neoplasm Social History Social History Smoking packs per day: 1 Smoking cigarettes per day: 20.0 Years smoked: 45 Smoking pack-years: 45.00 Smoking status: Former smoker Tobacco type: cigarettes Smoking end date: 06/07/99 Alcohol intake: never Alcohol use details: social Substance use: never Substance use type: does not use Do You Feel Safe in your Home?: Yes Lack of Transportation: No Lack of Food: Never True Current Housing: I Have Housing Concerned About Future Housing: No Difficulty Paying Gas/Electric Bills: No Difficulty Paying for Meds: No Currently Unemployed: No Education: High School Diploma/GED Difficulty w/ Childcare or Family Care: No Living arrangements: with family Occupation/Education: retired Gender identity (if verbalized by the patient): Female Spiritual care concerns: No Meds Home Medications and Allergies Home Medications ?Medication ?Instructions ?Recorded ?Confirmed ?Type aspirin 81 mg tablet,delayed 81 mg PO DAILY 10/13/19 07/07/24 History release (Adult Low Dose Aspirin) buspirone 7.5 mg tablet 7.5 mg PO TID 02/02/23 07/07/24 History clopidogrel 75 mg tablet 75 mg PO DAILY 02/02/23 07/07/24 History duloxetine 60 mg capsule,delayed 60 mg PO DAILY 02/02/23 07/07/24 History release insulin aspart U-100 100 unit/mL 8 unit subcut TIDWM 02/02/23 07/07/24 History (3 mL) subcutaneous pen insulin detemir U-100 100 unit/mL 30 unit subcut BID 02/02/23 07/07/24 History (3 mL) subcutaneous pen (Levemir FlexPen) lisinopril 40 mg tablet 40 mg PO DAILY 02/02/23 07/07/24 History semaglutide 1 mg/dose (4 mg/3 mL) 2 mg subcut WEEKLY 02/02/23 07/07/24 History subcutaneous pen injector (Ozempic) alprazolam 0.25 mg tablet 0.25 mg PO TID PRN Anxiety 03/28/24 07/07/24 History biotin 1,000 mcg chewable tablet 1,000 mcg PO DAILY 03/28/24 07/07/24 History cholecalciferol (vitamin D3) 25 25 mcg PO DAILY 03/28/24 07/07/24 History mcg (1,000 unit) tablet (Vitamin D3) donepezil 10 mg tablet 10 mg PO HS 03/28/24 07/07/24 History rosuvastatin 40 mg tablet 40 mg PO DAILY 03/28/24 07/07/24 History ascorbic acid (vitamin C) 100 mg 100 mg PO DAILY 07/07/24 07/07/24 History tablet (Vitamin C) turmeric 400 mg capsule 400 mg PO DAILY 07/07/24 07/07/24 History vitamin B complex 1 tablet PO DAILY 07/07/24 07/07/24 History Allergies Allergy/AdvReac Type Severity Reaction Status Date / Time No Known Allergies Allergy Verified 07/07/24 21:20 Vital Signs Vital Signs - 24 hr 07/07/24 12:08 07/07/24 15:30 07/07/24 17:45 Temperature 98.2 F Pulse Rate 93 87 96 Respiratory Rate 16 20 20 Blood Pressure 159/105 H 156/64 H 137/84 Pulse Oximetry 98 96 97 07/07/24 18:30 07/07/24 19:30 07/07/24 20:30 Temperature 98.4 F Pulse Rate 87 99 98 Respiratory Rate 16 17 18 Blood Pressure 127/69 153/59 H 155/67 H Pulse Oximetry 97 93 96 Exam Narrative: Patient is laying in bed Const: General: comfortable, no acute distress, well developed, alert, awake and average body habitus Nutritional Appearance: average body habitus Orientation/consciousness: patient oriented x3 HENMT: Head: normal to inspection, normocephalic and atraumatic Ears: hearing grossly normal bilaterally Face/Nose/Sinus: normal facial exam Face and sinus: normal facial exam Eyes: General: appearance normal, both eyes and all related structures Pupils: Equal, round and reactive pupils present EOM: EOMs intact bilaterally Neck: Neck: full ROM, no lymphadenopathy and no JVD Thyroid: thyroid normal Lymphatic: no lymphadenopathy noted Resp: Effort & Inspection: normal respiratory effort and able to speak in complete sentences Auscultation: clear to auscultation bilaterally Cardio: Jugular venous distension: no JVD Rate: regular rate Rhythm: regular rhythm Heart sounds: S1 normal heart sound present and S2 normal heart sound present GI: GI Palp: Yes Soft to palpation and Yes No hepatosplenomegaly present : General: Yes deferred Skin: Rashes: no rashes Wounds: no wounds Neuro: General: patient oriented x3 and CN's II-XI intact bilaterally Cranial nerves: Yes CN's II-XII intact bilaterally and Yes Equal, round and reactive pupils present Cognition (Neuro): normal cognition Speech: normal speech Gait exam (Neuro): Normal gait present Motor exam (neuro): 5/5 motor strength present throughout Extrem: General: normal to inspection, full ROM, no joint enlargement and no pedal edema H&P: Results Labs Labs: Short CBC 07/07/24 Range/Units 14:44 WBC 12.9 H (4.5-10.0) K/mm3 Hgb 15.6 H (12.0-15.0) g/dL Hct 47.7 H (37.0-47.0) % Plt Count 193 (150-375) k/mm3 BMP 07/07/24 07/07/24 14:44 21:02 Sodium 135 L 136 L Potassium 4.2 4.1 Chloride 101 99 Carbon Dioxide 21 L 26 BUN 26 H 24 H Creatinine 0.72 0.84 Glucose 239 H 199 H Calcium 9.6 9.0 Liver Function 07/07/24 Range/Units 14:44 Total Bilirubin 1.4 H (0.2-1.3) mg/dL AST 25 (14-36) U/L ALT 28 (6-35) U/L Alkaline Phosphatase 94 (38-126) U/L Albumin 4.1 (3.5-5.1) g/dL Urine 07/07/24 Range/Units 15:04 Urine Color Dark yellow (Yellow) Urine Appearance Clear (Clear) Urine pH 5.0 (5.0-9.0) Ur Specific [place] 1.023 (1.001-1.035) Urine Protein 1+ H (Negative) mg/dL Urine Glucose (UA) 2+ H (Negative) mg/dL Assessment and Plan Assessment and plan (1) Colitis: Code(s): K52.9 - Noninfective gastroenteritis and colitis, unspecified Status: Acute Assessment and Plan: Admit to regular medical floor Patient is on ciprofloxacin and Flagyl (2) Type 2 diabetes mellitus with diabetic neuropathy, unspecified: Code(s): E11.40 - Type 2 diabetes mellitus with diabetic neuropathy, unspecified Status: Acute Assessment and Plan: Continue insulin (3) Abdominal pain: Code(s): R10.9 - Unspecified abdominal pain Status: Acute Assessment and Plan: Likely secondary to 1. (4) C. difficile colitis: Code(s): A04.72 - Enterocolitis due to Clostridium difficile, not specified as recurrent Status: Acute Assessment and Plan: Patient concluded course of antibiotics in the outpatient setting (5) Essential (primary) hypertension: Code(s): I10 - Essential (primary) hypertension Status: Acute Assessment and Plan: Resume home meds Continue to monitor Hospitalist MIPS Advance Care Plan I have confirmed that the patient's Advanced Care Plan is present, code status is documented, or surrogate decision maker is listed in patient medical record.: Yes Medication Reconciliation I have utilized all available resources to obtain, update and review the patients current medications (includes all prescriptions, OTC, herbals, cannabis, and nutritional supplements).: Yes
--- NOTE | 2024-07-07 21:29 | ADMGEN ---
This patient, Mildred Grace, was admitted to 3 Med Surg Room 302-01. Patient/family oriented to hospital policies and general routines including ID bracelet, bed and alarms, visiting hours, pain management, procedures, bathroom and other care routines, personal items, smoking policy, room service/diet, and visiting hours. Information on how to activate the Rapid Response Team has been discussed. Patient/Family are encouraged to report perceived risks to care and to ask questions if they do not understand what they are told or what they should do.
[2024-07-07] MEDS: FIDAXOMICIN 200 MG TABLET PO (21:32)
[2024-07-08] MEDS: metroNIDAZOLE 500 MG/ISO 100ML 500 MG/100 ML BAG 100 MG IVPB (04:23)
[2024-07-08] MEDS: MORPHINE SULFATE (*CRX) 2 MG/ML INJ IV PUSH ×3 (05:05→14:15)
[2024-07-08 05:27] VITALS: BP 175/65; PULSE 99; RESP 18; TEMP 36.2; O2SAT 96
[2024-07-08 06:12] LABS: Basophils Percent Auto 0.3 % (0.2-1.2); Eosinophils Absolute Auto 0.1 K/mm3 (0-0.3); Eosinophils Percent Auto 0.6 % (0-4.4); Hematocrit 43.5 % (37.0-47.0); Immature Granulocyte Absolute 0.04 K/mm3 (0.00-0.031); Immature Granulocyte Percent A 0.4 % (0-0.5); Lymphocytes Absolute Auto 1.28 K/mm3 (0.9-3.2); Lymphocytes Percent Auto 11.6 % (18.3-44.2); Mean Corpuscular HGB Conc 32.2 g/dl (32-36); Mean Corpuscular Hemoglobin 29.9 pg (26-34); Mean Corpuscular Volume 92.9 fl (80-100); Mean Platelet Volume 9.9 fl (7.4-10.4); Monocytes Absolute Auto 0.7 K/mm3 (0.1-0.6); Monocytes Percent Auto 6.3 % (2.6-8.5); Neutrophils Absolute Auto 8.9 K/mm3 (1.3-6.7); Neutrophils Percent Auto 80.8 % (45.5-73.1); Platelet Count Result 142 k/mm3 (150-375); Red Blood Count 4.68 M/mm3 (4.2-5.4); Red Cell Distribution Width 13.7 % (11.5-14.5)
[2024-07-08 08:21] LABS: Glucose Point of Care 256 mg/dl (65-105)
[2024-07-08] MEDS: INSULIN GLARGINE (*BKC) 100 UNITS/ML 30 UNITS SUB-Q ×2 (08:52→21:41)
[2024-07-08] MEDS: ENOXAPARIN 40 MG/0.4 ML SYRINGE SUB-Q (08:55)
[2024-07-08] MEDS: busPIRone HCL 5 MG TABLET PO ×3 (08:56→17:07)
[2024-07-08] MEDS: busPIRone HCL 2.5 MG TABLET PO ×3 (08:56→17:07)
[2024-07-08] MEDS: ROSUVASTATIN 20 MG TABLET 40 MG PO (08:56)
[2024-07-08] MEDS: CLOPIDOGREL BISULFATE 75 MG TABLET PO (08:57)
[2024-07-08] MEDS: FIDAXOMICIN 200 MG TABLET PO ×2 (08:57→21:41)
[2024-07-08] MEDS: DULoxetine HCL 60 MG CAPSULE.DR PO (08:57)
[2024-07-08] MEDS: lisinopriL 20 MG TABLET 40 MG PO (08:57)
[2024-07-08] MEDS: ASPIRIN 81 MG ENTERIC TABLET PO (08:59)
[2024-07-08 12:14] LABS: Glucose Point of Care 235 mg/dl (65-105)
--- NOTE | 2024-07-08 12:23 | P.CONGI_ITS ---
Assessment and Plan Assessment and plan (1) Colitis: Code(s): K52.9 - Noninfective gastroenteritis and colitis, unspecified Status: Acute Assessment and Plan: The patient presents with acute colitis, with a differential diagnosis including ischemic colitis and C diff infection given the recent antibiotic course. Treatment with fidaxomicin for 10 days has been initiated. At this time, a colonoscopy is not indicated. The patient's clinical response to fidaxomicin treatment will be closely monitored. GI Consult Note Consult date/time: 07/08/24 12:23 HPI: Mildred Grace is a 74-year-old female with a history of diabetes. Prior to yesterday morning, she was in her usual state of health. She then presented with several episodes of vomiting and bloody diarrhea. Of note, she recently completed a two-week course of amoxicillin for a throat infection. Initial laboratory findings revealed a hemoglobin of 14 g/dL, a platelet count of 42,000/?L, a white blood cell count of 11,000/?L, and normal liver function tests. A CT scan showed colonic wall thickening involving the transverse and sigmoid colon. This morning, the patient had two episodes of rectal bleeding but reports an overall improvement. A C diff PCR test is positive, and treatment with fidaxomicin 200 mg bid was started. She had a colonoscopy in March 2024 showing some polyps, no neoplasia. Review of Systems 2 Review of Systems: All systems reviewed & are unremarkable except as noted in HPI and below PMFSH Past Medical History Medical History Diabetes Arthritis IBS (irritable bowel syndrome) Fatigue Colitis Abdominal pain Diarrhea ACL tear Tear of MCL (medial collateral ligament) of knee Surgical History Surgical History H/O: hysterectomy Total hysterectomy gallbladder removed Family History Family History Mother Hypertension Cerebrovascular accident Family history of diabetes mellitus in first degree relative Family history of coronary artery disease Grandparent Family history of lung cancer Family history of coronary artery disease Diabetes mellitus Father Cancer Aplastic anemia Sibling Diabetes mellitus Heart disease Other Family history of arthritis Family history of gout Family history of malignant neoplasm Social History Social History Smoking packs per day: 1 Smoking cigarettes per day: 20.0 Years smoked: 45 Smoking pack-years: 45.00 Smoking status: Former smoker Tobacco type: cigarettes Smoking end date: 06/07/99 Alcohol intake: never Alcohol use details: social Substance use: never Substance use type: does not use Do You Feel Safe in your Home?: Yes Lack of Transportation: No Lack of Food: Never True Current Housing: I Have Housing Concerned About Future Housing: No Difficulty Paying Gas/Electric Bills: No Difficulty Paying for Meds: No Currently Unemployed: No Education: High School Diploma/GED Difficulty w/ Childcare or Family Care: No Living arrangements: with family Occupation/Education: retired Gender identity (if verbalized by the patient): Female Spiritual care concerns: No Meds Home Medications and Allergies Home Medications ?Medication ?Instructions ?Recorded ?Confirmed ?Type aspirin 81 mg tablet,delayed 81 mg PO DAILY 10/13/19 07/07/24 History release (Adult Low Dose Aspirin) buspirone 7.5 mg tablet 7.5 mg PO TID 02/02/23 07/07/24 History clopidogrel 75 mg tablet 75 mg PO DAILY 02/02/23 07/07/24 History duloxetine 60 mg capsule,delayed 60 mg PO DAILY 02/02/23 07/07/24 History release insulin aspart U-100 100 unit/mL 8 unit subcut TIDWM 02/02/23 07/07/24 History (3 mL) subcutaneous pen insulin detemir U-100 100 unit/mL 30 unit subcut BID 02/02/23 07/07/24 History (3 mL) subcutaneous pen (Levemir FlexPen) lisinopril 40 mg tablet 40 mg PO DAILY 02/02/23 07/07/24 History semaglutide 1 mg/dose (4 mg/3 mL) 2 mg subcut WEEKLY 02/02/23 07/07/24 History subcutaneous pen injector (Ozempic) alprazolam 0.25 mg tablet 0.25 mg PO TID PRN Anxiety 03/28/24 07/07/24 History biotin 1,000 mcg chewable tablet 1,000 mcg PO DAILY 03/28/24 07/07/24 History cholecalciferol (vitamin D3) 25 25 mcg PO DAILY 03/28/24 07/07/24 History mcg (1,000 unit) tablet (Vitamin D3) donepezil 10 mg tablet 10 mg PO HS 03/28/24 07/07/24 History rosuvastatin 40 mg tablet 40 mg PO DAILY 03/28/24 07/07/24 History ascorbic acid (vitamin C) 100 mg 100 mg PO DAILY 07/07/24 07/07/24 History tablet (Vitamin C) turmeric 400 mg capsule 400 mg PO DAILY 07/07/24 07/07/24 History vitamin B complex 1 tablet PO DAILY 07/07/24 07/07/24 History Allergies Allergy/AdvReac Type Severity Reaction Status Date / Time No Known Allergies Allergy Verified 07/07/24 21:20 Vital Signs Vital Signs - 24 hr 07/07/24 15:30 07/07/24 17:45 07/07/24 18:30 Temperature Pulse Rate 87 96 87 Respiratory Rate 20 20 16 Blood Pressure 156/64 H 137/84 127/69 Pulse Oximetry 96 97 97 Oxygen Delivery 07/07/24 19:30 07/07/24 20:30 07/07/24 21:52 Temperature 98.4 F 99.0 F Pulse Rate 99 98 97 Respiratory Rate 17 18 12 Blood Pressure 153/59 H 155/67 H 172/72 H Pulse Oximetry 93 96 96 Oxygen Delivery 07/07/24 22:47 07/08/24 05:27 Temperature 97.1 F L Pulse Rate 99 Respiratory Rate 18 Blood Pressure 175/65 H Pulse Oximetry 96 Oxygen Delivery Room Air Exam 2 Narrative: Alert And oriented x3. Lung zone cardiovascular: Normal. Abdomen: Soft, nontender, tympanitic, bowel sounds present. No rebound. Rest of the physical examination within normal limits. Results Labs 07/08/24 05:55 07/07/24 21:02 Labs: Short CBC 07/07/24 07/08/24 Range/Units 14:44 05:55 WBC 12.9 H 11.0 H (4.5-10.0) K/mm3 Hgb 15.6 H 14.0 (12.0-15.0) g/dL Hct 47.7 H 43.5 (37.0-47.0) % Plt Count 193 142 L (150-375) k/mm3 BMP 07/07/24 07/07/24 14:44 21:02 Sodium 135 L 136 L Potassium 4.2 4.1 Chloride 101 99 Carbon Dioxide 21 L 26 BUN 26 H 24 H Creatinine 0.72 0.84 Glucose 239 H 199 H Calcium 9.6 9.0 Liver Function 07/07/24 Range/Units 14:44 Total Bilirubin 1.4 H (0.2-1.3) mg/dL AST 25 (14-36) U/L ALT 28 (6-35) U/L Alkaline Phosphatase 94 (38-126) U/L Albumin 4.1 (3.5-5.1) g/dL Urine 07/07/24 Range/Units 15:04 Urine Color Dark yellow (Yellow) Urine Appearance Clear (Clear) Urine pH 5.0 (5.0-9.0) Ur Specific [place] 1.023 (1.001-1.035) Urine Protein 1+ H (Negative) mg/dL Urine Glucose (UA) 2+ H (Negative) mg/dL
[2024-07-08 13:01] LABS: Hematocrit 42.3 % (37.0-47.0); Hemoglobin 13.6 g/dL (12.0-15.0)
[2024-07-08] MEDS: INSULIN ASPART (*BKC) 100 UNITS/ML SUB-Q ×3 (13:10→17:10)
--- NOTE | 2024-07-08 13:27 | P.PNIM_ITS ---
Progress Note: A&P Assessment and Plan (1) Colitis: Code(s): K52.9 - Noninfective gastroenteritis and colitis, unspecified Status: Acute Assessment and Plan: Patient presents with abdominal pain and rectal bleeding. Rectal exam in ED showing gross bright red blood with no melena, no large hemorrhoids and no fissures. CT Abd/Pelvis showing colitis extending from mid transverse to the mid sigmoid. CDiff toxin positive. WBC 13K. Still having rectal bleeding. hgb normal today. GI consulted and appreciate their input. WBC trending down Hold Plavix. Serial HH. Change lovenox to SCDs. (2) C. difficile colitis: Code(s): A04.72 - Enterocolitis due to Clostridium difficile, not specified as recurrent Status: Acute Assessment and Plan: Patient with CDiff colitis. [place] related to recently concluded course of antibiotics in the outpatient setting. Continue fidaxomicin. As above (3) Type 2 diabetes mellitus with diabetic neuropathy, unspecified: Code(s): E11.40 - Type 2 diabetes mellitus with diabetic neuropathy, unspecified Status: Acute Assessment and Plan: The patient's blood glucose was reviewed on 07/08 Glucose poorly controlled. Continue AccuCheks covering with sliding scale. Hypoglycemia protocol available as needed. Continue current medications for now. Check A1c (4) Essential (primary) hypertension: Code(s): I10 - Essential (primary) hypertension Status: Acute Assessment and Plan: Patient's blood pressure was reviewed on 07/08 Blood pressure with wide fluctuations. Will continue to monitor (5) Abdominal pain: Code(s): R10.9 - Unspecified abdominal pain Status: Acute Assessment and Plan: Related to above Plan DVT Prophylaxis - SCDs Code status - full Subjective Date/time seen: 07/08/24 13:27 Interval history: 74yo female with DM, peripheral neuropathy, HTN and IBS here for abdominal pain. [place] having crampy abd pain. Was on abx recently for a sore throat. No n/v. She takes Plavix at home. She states she is having 'pure blood' with BMs and no stool. She has had 4-5 BMs since admission. Exam Narrative: AF 97.1 175/65 99 18 96% ra Gen - NARD Chest - CTA bilaterally, nml RR CV - RRR S1/S2 Abd - diffusely tender without guarding or rebound Ext - No pedal edema Psych - Nml mood and affect Skin - Warm and dry Objective Data Vital Signs Vital Signs: Vital Signs - 24 hr 07/07/24 15:30 07/07/24 17:45 07/07/24 18:30 Temperature Pulse Rate 87 96 87 Respiratory Rate 20 20 16 Blood Pressure 156/64 H 137/84 127/69 Pulse Oximetry 96 97 97 Oxygen Delivery 07/07/24 19:30 07/07/24 20:30 07/07/24 21:52 Temperature 98.4 F 99.0 F Pulse Rate 99 98 97 Respiratory Rate 17 18 12 Blood Pressure 153/59 H 155/67 H 172/72 H Pulse Oximetry 93 96 96 Oxygen Delivery 07/07/24 22:47 07/08/24 05:27 Temperature 97.1 F L Pulse Rate 99 Respiratory Rate 18 Blood Pressure 175/65 H Pulse Oximetry 96 Oxygen Delivery Room Air Intake/Output Intake/Output: Intake & Output 07/05/24 07/06/24 07/07/24 07/08/24 23:59 23:59 23:59 23:59 Intake Total 1200 460 Balance 1200 460 Meds/Results Medications: Active Medications Generic Name Dose Route Start Last Admin Trade Name Freq PRN Reason Stop Dose Admin Alprazolam 0.25 mg 07/08/24 00:21 Alprazolam (*Crx) 0.25 Mg Tablet PO TID PRN Anxiety Aspirin 81 mg 07/08/24 09:00 07/08/24 08:59 Aspirin 81 Mg Enteric Tablet PO 81 mg DAILY MARJROIE Administration Buspirone HCl 2.5 mg 07/08/24 09:00 07/08/24 13:10 Buspirone Hcl 2.5 Mg Tablet PO 2.5 mg TID MARJORIE Administration Buspirone HCl 5 mg 07/08/24 09:00 07/08/24 13:10 Buspirone Hcl 5 Mg Tablet PO 5 mg TID MARJORIE Administration Clopidogrel Bisulfate 75 mg 07/08/24 09:00 07/08/24 08:57 Clopidogrel Bisulfate 75 Mg Tablet PO 75 mg DAILY MARJORIE Administration Dextrose 12.5 gm 07/08/24 12:45 Dextrose 50% 25 Gm/50 Ml Syringe IV PUSH PRN PRN Hypoglycemia Protocol Donepezil HCl 10 mg 07/08/24 21:00 Donepezil Hcl 10 Mg Tablet PO HS MARJORIE Duloxetine HCl 60 mg 07/08/24 09:00 07/08/24 08:57 Duloxetine Hcl 60 Mg Capsule. PO 60 mg DAILY MARJORIE Administration Fidaxomicin 200 mg 07/07/24 21:00 07/08/24 08:57 Fidaxomicin 200 Mg Tablet PO 200 mg Q12HR MARJORIE Administration Glucagon 1 mg 07/08/24 12:45 Glucagon For Inj 1 Mg Vial IM PRN PRN Hypoglycemia Protocol Glucose 15 gm 07/08/24 12:45 Glucose Oral Gel 15 Gm Of Glucse In 37.5 Gm Tube PO PRN PRN Hypoglycemia Protocol Dextrose 1,000 mls @ 100 mls/hr 07/08/24 12:45 Dextrose 5% 1,000 Ml IVPB PRN PRN Hypoglycemia Protocol Insulin Aspart 5 units 07/08/24 12:55 07/08/24 13:10 Insulin Aspart (*Bkc) 100 Units/Ml 0.067 units/kg (5 units) 5 units SUB-Q Administration TIDWM [facility] Insulin Aspart 4 - 8 units 07/08/24 12:55 07/08/24 13:10 Insulin Aspart (*Bkc) 100 Units/Ml SUB-Q 4 units TIDWM MARJORIE Administration Protocol Insulin Glargine 30 units 07/08/24 09:00 07/08/24 08:52 Insulin Glargine (*Bkc) 100 Units/Ml SUB-Q 30 units Q12HR MARJORIE Administration Lisinopril 40 mg 07/08/24 09:00 07/08/24 08:57 Lisinopril 20 Mg Tablet PO 40 mg DAILY [facility] Administration Metronidazole 500 mg 07/08/24 14:00 Metronidazole 500 Mg Tablet PO Q8HR [facility] Morphine Sulfate 2 mg 07/07/24 18:58 07/08/24 09:09 Morphine Sulfate (*Crx) 2 Mg/Ml Inj IV PUSH 2 mg Q2H PRN Administration Pain Rated 7-10 Rosuvastatin Calcium 40 mg 07/08/24 09:00 07/08/24 08:56 Rosuvastatin 20 Mg Tablet PO 40 mg DAILY [facility] Administration Radiology Results: ITS Impressions Abdomen/Pelvis CT 07/07/24 16:44 IMPRESSION: 1. Colitis extending from the mid transverse to the mid sigmoid colon which could be infectious, inflammatory or ischemic in etiology. Labs Labs: Laboratory Results - last 24 hr 07/07/24 07/07/24 07/07/24 14:44 15:04 16:48 WBC 12.9 H RBC 5.25 Hgb 15.6 H Hct 47.7 H MCV 90.9 MCH 29.7 MCHC 32.7 RDW 13.4 Plt Count 193 MPV 10.1 Immature Gran % (Auto) 0.4 Neut % (Auto) 87.1 H Lymph % (Auto) 8.1 L [place] % (Auto) 4.0 Eos % (Auto) 0.2 Baso % (Auto) 0.2 Lymph # (Auto) 1.05 [place] # (Auto) 0.5 Eos # (Auto) 0.0 Baso # (Auto) 0.0 Abs Immat Gran (auto) 0.05 H Absolute Neuts (auto) 11.3 H Absolute Nucleated RBC 0.000 Nucleated RBC % 0.0 PT 13.8 INR 1.0 APTT 25.9 Sodium 135 L Potassium 4.2 Chloride 101 Carbon Dioxide 21 L Anion Gap 13 H BUN 26 H Creatinine 0.72 Estim Creat Clear Calc 56 Estimated GFR > 60 Glucose 239 H POC Capillary Glucose Lactic Acid Calcium 9.6 Total Bilirubin 1.4 H AST 25 ALT 28 Alkaline Phosphatase 94 Total Protein 7.0 Albumin 4.1 Lipase 79 Urine Color Dark yellow Urine Appearance Clear Urine pH 5.0 Ur Specific [place] 1.023 Urine Protein 1+ H Urine Glucose (UA) 2+ H Urine Ketones Trace H Ur Blood (Man) Negative Urine Nitrate Negative Urine Bilirubin Negative Urine Urobilinogen 1.0 Leukocyte Esterase Rfl Negative Urine RBC 0-2 Urine WBC 0-5 Ur Squamous Epith Cells None seen Urine Bacteria None seen Urine Casts 0-2 C. difficile (PCR) Positive A* 07/07/24 07/07/24 07/08/24 18:18 21:02 05:55 WBC 11.0 H RBC 4.68 Hgb 14.0 Hct 43.5 MCV 92.9 MCH 29.9 MCHC 32.2 RDW 13.7 Plt Count 142 L MPV 9.9 Immature Gran % (Auto) 0.4 Neut % (Auto) 80.8 H Lymph % (Auto) 11.6 L [place] % (Auto) 6.3 Eos % (Auto) 0.6 Baso % (Auto) 0.3 Lymph # (Auto) 1.28 [place] # (Auto) 0.7 H Eos # (Auto) 0.1 Baso # (Auto) 0.0 Abs Immat Gran (auto) 0.04 H Absolute Neuts (auto) 8.9 H Absolute Nucleated RBC 0.000 Nucleated RBC % 0.0 PT INR APTT Sodium 136 L Potassium 4.1 Chloride 99 Carbon Dioxide 26 Anion Gap 11 BUN 24 H Creatinine 0.84 Estim Creat Clear Calc 49 Estimated GFR > 60 Glucose 199 H POC Capillary Glucose Lactic Acid 1.4 Calcium 9.0 Total Bilirubin AST ALT Alkaline Phosphatase Total Protein Albumin Lipase Urine Color Urine Appearance Urine pH Ur Specific [place] Urine Protein Urine Glucose (UA) Urine Ketones Ur Blood (Man) Urine Nitrate Urine Bilirubin Urine Urobilinogen Leukocyte Esterase Rfl Urine RBC Urine WBC Ur Squamous Epith Cells Urine Bacteria Urine Casts C. difficile (PCR) 07/08/24 07/08/24 07/08/24 08:16 12:10 12:56 WBC RBC Hgb 13.6 Hct 42.3 MCV MCH MCHC RDW Plt Count MPV Immature Gran % (Auto) Neut % (Auto) Lymph % (Auto) [place] % (Auto) Eos % (Auto) Baso % (Auto) Lymph # (Auto) [place] # (Auto) Eos # (Auto) Baso # (Auto) Abs Immat Gran (auto) Absolute Neuts (auto) Absolute Nucleated RBC Nucleated RBC % PT INR APTT Sodium Potassium Chloride Carbon Dioxide Anion Gap BUN Creatinine Estim Creat Clear Calc Estimated GFR Glucose POC Capillary Glucose 256 H 235 H Lactic Acid Calcium Total Bilirubin AST ALT Alkaline Phosphatase Total Protein Albumin Lipase Urine Color Urine Appearance Urine pH Ur Specific [place] Urine Protein Urine Glucose (UA) Urine Ketones Ur Blood (Man) Urine Nitrate Urine Bilirubin Urine Urobilinogen Leukocyte Esterase Rfl Urine RBC Urine WBC Ur Squamous Epith Cells Urine Bacteria Urine Casts C. difficile (PCR)
[2024-07-08 14:00] VITALS: BP 109/74; PULSE 97; RESP 18; TEMP 36.3; O2SAT 98
[2024-07-08] MEDS: metroNIDAZOLE 500 MG TABLET PO ×2 (14:14→21:41)
[2024-07-08 17:05] LABS: Glucose Point of Care 160 mg/dl (65-105)
[2024-07-08 19:46] LABS: Hematocrit 41.2 % (37.0-47.0); Hemoglobin 13.2 g/dL (12.0-15.0)
[2024-07-08] MEDS: DONEPEZIL HCL 10 MG TABLET PO (21:41)
[2024-07-08 22:00] VITALS: BP 92/50; PULSE 92; RESP 16; TEMP 36.7; O2SAT 97
[2024-07-08 22:35] LABS: Glucose Point of Care 132 mg/dl (65-105)
[2024-07-09 01:32] LABS: Hematocrit 40.1 % (37.0-47.0)
[2024-07-09 05:04] VITALS: BP 107/59; PULSE 79; RESP 16; TEMP 36.1; O2SAT 99
[2024-07-09] MEDS: metroNIDAZOLE 500 MG TABLET PO ×3 (05:58→21:25)
[2024-07-09 06:43] LABS: Basophils Percent Auto 0.4 % (0.2-1.2); Eosinophils Absolute Auto 0.2 K/mm3 (0-0.3); Eosinophils Percent Auto 1.8 % (0-4.4); Hematocrit 40.1 % (37.0-47.0); Hemoglobin 12.8 g/dL (12.0-15.0); Immature Granulocyte Absolute 0.05 K/mm3 (0.00-0.031); Immature Granulocyte Percent A 0.5 % (0-0.5); Immature Platelet Fraction Pct 2.3 % (0.9-11.2); Lymphocytes Absolute Auto 1.46 K/mm3 (0.9-3.2); Lymphocytes Percent Auto 15.1 % (18.3-44.2); Mean Corpuscular HGB Conc 31.9 g/dl (32-36); Mean Corpuscular Volume 94.1 fl (80-100); Mean Platelet Volume 9.9 fl (7.4-10.4); Monocytes Absolute Auto 0.6 K/mm3 (0.1-0.6); Monocytes Percent Auto 5.8 % (2.6-8.5); Neutrophils Absolute Auto 7.4 K/mm3 (1.3-6.7); Neutrophils Percent Auto 76.4 % (45.5-73.1); Platelet Count Result 137 k/mm3 (150-375); Red Blood Count 4.26 M/mm3 (4.2-5.4); Red Cell Distribution Width 13.6 % (11.5-14.5); White Blood Count 9.7 K/mm3 (4.5-10.0)
[2024-07-09 07:32] LABS: Alanine Aminotransferase 19 U/L (6-35); Albumin Level 3.1 g/dL (3.5-5.1); Alkaline Phosphatase 75 U/L (38-126); Anion Gap 3 mmol/L (4-12); Aspartate Amino Transferase 18 U/L (14-36); Blood Urea Nitrogen 15 mg/dL (7-17); Calcium 8.6 mg/dL (8.4-10.2); Carbon Dioxide 31 mmol/L (22-30); Chloride 102 mmol/L (98-107); Estimated CRCL calculation 52 ml/min; Estimated Glomerular Filt Rate > 60; Glucose 164 mg/dL (65-110); Magnesium 1.7 mg/dL (1.6-2.3); Phosphorus 3.8 mg/dL (2.5-4.5); Potassium 3.9 mmol/L (3.4-5.0); Sodium 136 mmol/L (137-145)
[2024-07-09 07:51] LABS: Glucose Point of Care 164 mg/dl (65-105)
[2024-07-09] MEDS: INSULIN ASPART (*BKC) 100 UNITS/ML SUB-Q ×4 (09:06→17:15)
[2024-07-09] MEDS: INSULIN GLARGINE (*BKC) 100 UNITS/ML 30 UNITS SUB-Q ×2 (09:06→21:25)
[2024-07-09] MEDS: MORPHINE SULFATE (*CRX) 2 MG/ML INJ IV PUSH (09:08)
[2024-07-09] MEDS: FIDAXOMICIN 200 MG TABLET PO ×2 (09:09→21:25)
[2024-07-09] MEDS: ASPIRIN 81 MG ENTERIC TABLET PO (09:09)
[2024-07-09] MEDS: busPIRone HCL 2.5 MG TABLET PO ×3 (09:10→17:15)
[2024-07-09] MEDS: ROSUVASTATIN 20 MG TABLET 40 MG PO (09:10)
[2024-07-09] MEDS: lisinopriL 20 MG TABLET 40 MG PO (09:10)
[2024-07-09] MEDS: busPIRone HCL 5 MG TABLET PO ×3 (09:10→17:15)
[2024-07-09] MEDS: DULoxetine HCL 60 MG CAPSULE.DR PO (09:10)
[2024-07-09 11:49] LABS: Glucose Point of Care 224 mg/dl (65-105)
--- NOTE | 2024-07-09 12:17 | PM.IMPN ---
Progress Note: A&P Assessment and Plan (1) Colitis: Code(s): K52.9 - Noninfective gastroenteritis and colitis, unspecified Status: Acute Assessment and Plan: Patient presents with abdominal pain and rectal bleeding. Rectal exam in ED showing gross bright red blood with no melena, no large hemorrhoids and no fissures. CT Abd/Pelvis showing colitis extending from mid transverse to the mid sigmoid. CDiff toxin positive. WBC 13K. Hgb remaining normal. WBC normal. No further stools for the past 24 hours. GI consulted and appreciate their input. Discussed with GI who feels this may be ischemic Holding Plavix. Monitor clinically. Consider repeating CT if persistent symptoms. (2) C. difficile colitis: Code(s): A04.72 - Enterocolitis due to Clostridium difficile, not specified as recurrent Status: Acute Assessment and Plan: Patient with CDiff colitis. [place] related to recently concluded course of antibiotics in the outpatient setting. Continue fidaxomicin. As above (3) Type 2 diabetes mellitus with diabetic neuropathy, unspecified: Code(s): E11.40 - Type 2 diabetes mellitus with diabetic neuropathy, unspecified Status: Acute Assessment and Plan: The patient's blood glucose was reviewed on 2/2 Glucose better controlled Continue AccuCheks covering with sliding scale. Hypoglycemia protocol available as needed. Continue current medications for now. (4) Essential (primary) hypertension: Code(s): I10 - Essential (primary) hypertension Status: Acute Assessment and Plan: Patient's blood pressure was reviewed on 2/2 Blood pressure with wide fluctuations. Will continue to monitor (5) Abdominal pain: Code(s): R10.9 - Unspecified abdominal pain Status: Acute Assessment and Plan: Related to above Plan DVT Prophylaxis - SCDs Code status - full Subjective Date/time seen: 07/09/24 12:17 Interval history: 74yo female with DM, peripheral neuropathy, HTN and IBS here for abdominal pain. No further diarrhea. No n/v. Tolerating clear liquids. Complains of worsening abd pain. Controlled with analgesics. Exam Narrative: AF 97.0 107/59 79 16 99% ra Gen - NARD sitting up in chair Chest - CTA bilaterally, nml RR CV - RRR S1/S2 Abd - soft, +BS, diffusely tender without guarding or rebound Ext - No pedal edema Psych - Nml mood and affect Skin - Warm and dry Objective Data Vital Signs Vital Signs: Vital Signs - 24 hr 07/08/24 14:00 07/08/24 22:00 07/09/24 05:04 Temperature 97.4 F L 98.0 F 97.0 F L Pulse Rate 97 92 79 Respiratory Rate 18 16 16 Blood Pressure 109/74 92/50 L 107/59 L Pulse Oximetry 98 97 99 Intake/Output Intake/Output: Intake & Output 07/06/24 07/07/24 07/08/24 07/09/24 23:59 23:59 23:59 23:59 Intake Total 1200 1760 540 Balance 1200 1760 540 Meds/Results Medications: Active Medications Generic Name Dose Route Start Last Admin Trade Name Freq PRN Reason Stop Dose Admin Alprazolam 0.25 mg 07/08/24 00:21 Alprazolam (*Crx) 0.25 Mg Tablet PO TID PRN Anxiety Aspirin 81 mg 07/08/24 09:00 07/09/24 09:09 Aspirin 81 Mg Enteric Tablet PO 81 mg DAILY MARJORIE Administration Buspirone HCl 2.5 mg 07/08/24 09:00 07/09/24 09:10 Buspirone Hcl 2.5 Mg Tablet PO 2.5 mg TID MARJORIE Administration Buspirone HCl 5 mg 07/08/24 09:00 07/09/24 09:10 Buspirone Hcl 5 Mg Tablet PO 5 mg TID MARJORIE Administration Clopidogrel Bisulfate 75 mg 07/08/24 09:00 07/08/24 08:57 Clopidogrel Bisulfate 75 Mg Tablet PO 75 mg DAILY MARJORIE Administration Dextrose 12.5 gm 07/08/24 12:45 Dextrose 50% 25 Gm/50 Ml Syringe IV PUSH PRN PRN Hypoglycemia Protocol Donepezil HCl 10 mg 07/08/24 21:00 07/08/24 21:41 Donepezil Hcl 10 Mg Tablet PO 10 mg HS MARJORIE Administration Duloxetine HCl 60 mg 07/08/24 09:00 07/09/24 09:10 Duloxetine Hcl 60 Mg Capsule.Dr PO 60 mg DAILY MARJORIE Administration Fidaxomicin 200 mg 07/07/24 21:00 07/09/24 09:09 Fidaxomicin 200 Mg Tablet PO 200 mg Q12HR MARJORIE Administration Glucagon 1 mg 07/08/24 12:45 Glucagon For Inj 1 Mg Vial IM PRN PRN Hypoglycemia Protocol Glucose 15 gm 07/08/24 12:45 Glucose Oral Gel 15 Gm Of Glucse In 37.5 Gm Tube PO PRN PRN Hypoglycemia Protocol Dextrose 1,000 mls @ 100 mls/hr 07/08/24 12:45 Dextrose 5% 1,000 Ml IVPB PRN PRN Hypoglycemia Protocol Insulin Aspart 5 units 07/08/24 12:55 07/09/24 09:06 Insulin Aspart (*Bkc) 100 Units/Ml 0.067 units/kg (5 units) 5 units SUB-Q Administration TIDWM [facility] Insulin Aspart 4 - 8 units 07/08/24 12:55 07/09/24 07:52 Insulin Aspart (*Bkc) 100 Units/Ml SUB-Q Not Given TIDWM [facility] Protocol Insulin Glargine 30 units 07/08/24 09:00 07/09/24 09:06 Insulin Glargine (*Bkc) 100 Units/Ml SUB-Q 30 units Q12HR MARJORIE Administration Lisinopril 40 mg 07/08/24 09:00 07/09/24 09:10 Lisinopril 20 Mg Tablet PO 40 mg DAILY MARJORIE Administration Metronidazole 500 mg 07/08/24 14:00 07/09/24 05:58 Metronidazole 500 Mg Tablet PO 500 mg Q8HR MARJORIE Administration Rosuvastatin Calcium 40 mg 07/08/24 09:00 07/09/24 09:10 Rosuvastatin 20 Mg Tablet PO 40 mg DAILY MARJORIE Administration Radiology Results: ITS Impressions Abdomen/Pelvis CT 07/07/24 16:44 IMPRESSION: 1. Colitis extending from the mid transverse to the mid sigmoid colon which could be infectious, inflammatory or ischemic in etiology. Labs Labs: Laboratory Results - last 24 hr 07/08/24 07/08/24 07/08/24 12:56 17:03 19:41 WBC RBC Hgb 13.6 13.2 Hct 42.3 41.2 MCV MCH MCHC RDW Plt Count MPV Immature Gran % (Auto) Neut % (Auto) Lymph % (Auto) [place] % (Auto) Eos % (Auto) Baso % (Auto) Lymph # (Auto) [place] # (Auto) Eos # (Auto) Baso # (Auto) Abs Immat Gran (auto) Absolute Neuts (auto) Absolute Nucleated RBC Nucleated RBC % % Immature Plt Fraction Sodium Potassium Chloride Carbon Dioxide Anion Gap BUN Creatinine Estim Creat Clear Calc Estimated GFR Glucose POC Capillary Glucose 160 H Calcium Phosphorus Magnesium Total Bilirubin AST ALT Alkaline Phosphatase Total Protein Albumin 07/08/24 07/09/24 07/09/24 22:29 01:19 06:16 WBC 9.7 RBC 4.26 Hgb 13.0 12.8 Hct 40.1 40.1 MCV 94.1 MCH 30.0 MCHC 31.9 L RDW 13.6 Plt Count 137 L MPV 9.9 Immature Gran % (Auto) 0.5 Neut % (Auto) 76.4 H Lymph % (Auto) 15.1 L [place] % (Auto) 5.8 Eos % (Auto) 1.8 Baso % (Auto) 0.4 Lymph # (Auto) 1.46 [place] # (Auto) 0.6 Eos # (Auto) 0.2 Baso # (Auto) 0.0 Abs Immat Gran (auto) 0.05 H Absolute Neuts (auto) 7.4 H Absolute Nucleated RBC 0.000 Nucleated RBC % 0.0 % Immature Plt Fraction 2.3 Sodium 136 L Potassium 3.9 Chloride 102 Carbon Dioxide 31 H Anion Gap 3 L BUN 15 D Creatinine 0.81 Estim Creat Clear Calc 52 Estimated GFR > 60 Glucose 164 H POC Capillary Glucose 132 H Calcium 8.6 Phosphorus 3.8 Magnesium 1.7 Total Bilirubin 1.0 AST 18 ALT 19 Alkaline Phosphatase 75 Total Protein 6.0 L Albumin 3.1 L 07/09/24 07/09/24 07:49 11:31 WBC RBC Hgb Hct MCV MCH MCHC RDW Plt Count MPV Immature Gran % (Auto) Neut % (Auto) Lymph % (Auto) [place] % (Auto) Eos % (Auto) Baso % (Auto) Lymph # (Auto) [place] # (Auto) Eos # (Auto) Baso # (Auto) Abs Immat Gran (auto) Absolute Neuts (auto) Absolute Nucleated RBC Nucleated RBC % % Immature Plt Fraction Sodium Potassium Chloride Carbon Dioxide Anion Gap BUN Creatinine Estim Creat Clear Calc Estimated GFR Glucose POC Capillary Glucose 164 H 224 H Calcium Phosphorus Magnesium Total Bilirubin AST ALT Alkaline Phosphatase Total Protein Albumin
--- NOTE | 2024-07-09 12:44 | WPDGIPROGNO ---
Progress Note: A&P Assessment and Plan (1) Colitis: Code(s): K52.9 - Noninfective gastroenteritis and colitis, unspecified Status: Acute Assessment and Plan: The patient presents with colitis, likely ischemic in nature, based on CT scan findings demonstrating involvement of the watershed areas (vicinity of the splenic flexure). Concurrently, C difficile infection has been diagnosed, and the patient is currently receiving treatment with fidaxomicin. The absence of bowel movements may be attributed to a combination of factors, including the effectiveness of the C. difficile treatment and the recent administration of narcotics for abdominal pain. Following discussion with the hospitalist, it was agreed to discontinue narcotics for the time being. The patient's clinical progress will be closely monitored, and the diet will be advanced to a full liquid diet (2) Clostridioides difficile infection: Code(s): A49.8 - Other bacterial infections of unspecified site Status: Acute Time Spent With Patient Time with patient: less than 15 minutes Subjective Date/time seen: 07/09/24 12:44 Interval history: the patient feels somewhat better although still has required IV analgesics. She has not had any bowel movement since yesterday. There is no fever, nausea vomiting. Exam Narrative: Abdomen Slightly tender to deep palpation in left hemiabdomen, no rebound tenderness. Bowel sounds present and normal. Rest of the exam within normal limits. Objective Data Vital Signs Vital Signs: Vital Signs - 24 hr 07/08/24 14:00 07/08/24 22:00 07/09/24 05:04 Temperature 97.4 F L 98.0 F 97.0 F L Pulse Rate 97 92 79 Respiratory Rate 18 16 16 Blood Pressure 109/74 92/50 L 107/59 L Pulse Oximetry 98 97 99 Intake/Output Intake/Output: Intake & Output 07/06/24 07/07/24 07/08/24 07/09/24 23:59 23:59 23:59 23:59 Intake Total 1200 1760 540 Balance 1200 1760 540 Meds/Results Medications: Active Medications Generic Name Dose Route Start Last Admin Trade Name Freq PRN Reason Stop Dose Admin Acetaminophen 650 mg 07/09/24 12:16 Acetaminophen 325 Mg Tablet PO Q6H PRN Mild Pain (1-5) Or Fever Hydrocodone Bitart/Acetaminophen 1 tab 07/09/24 12:16 Hydrocodone/Acetaminophen (*Crx) 5-325 Mg Tablet PO Q6H PRN Pain Rated 6 or Greater Alprazolam 0.25 mg 07/08/24 00:21 Alprazolam (*Crx) 0.25 Mg Tablet PO TID PRN Anxiety Aspirin 81 mg 07/08/24 09:00 07/09/24 09:09 Aspirin 81 Mg Enteric Tablet PO 81 mg DAILY MARJORIE Administration Buspirone HCl 2.5 mg 07/08/24 09:00 07/09/24 09:10 Buspirone Hcl 2.5 Mg Tablet PO 2.5 mg TID MARJORIE Administration Buspirone HCl 5 mg 07/08/24 09:00 07/09/24 09:10 Buspirone Hcl 5 Mg Tablet PO 5 mg TID MARJORIE Administration Clopidogrel Bisulfate 75 mg 07/08/24 09:00 07/08/24 08:57 Clopidogrel Bisulfate 75 Mg Tablet PO 75 mg DAILY MARJORIE Administration Dextrose 12.5 gm 07/08/24 12:45 Dextrose 50% 25 Gm/50 Ml Syringe IV PUSH PRN PRN Hypoglycemia Protocol Donepezil HCl 10 mg 07/08/24 21:00 07/08/24 21:41 Donepezil Hcl 10 Mg Tablet PO 10 mg HS MARJORIE Administration Duloxetine HCl 60 mg 07/08/24 09:00 07/09/24 09:10 Duloxetine Hcl 60 Mg Capsule.Dr PO 60 mg DAILY MARJORIE Administration Fidaxomicin 200 mg 07/07/24 21:00 07/09/24 09:09 Fidaxomicin 200 Mg Tablet PO 200 mg Q12HR MARJORIE Administration Glucagon 1 mg 07/08/24 12:45 Glucagon For Inj 1 Mg Vial IM PRN PRN Hypoglycemia Protocol Glucose 15 gm 07/08/24 12:45 Glucose Oral Gel 15 Gm Of Glucse In 37.5 Gm Tube PO PRN PRN Hypoglycemia Protocol Dextrose 1,000 mls @ 100 mls/hr 07/08/24 12:45 Dextrose 5% 1,000 Ml IVPB PRN PRN Hypoglycemia Protocol Insulin Aspart 5 units 07/08/24 12:55 07/09/24 09:06 Insulin Aspart (*Bkc) 100 Units/Ml 0.067 units/kg (5 units) 5 units SUB-Q Administration TIDWM [facility] Insulin Aspart 4 - 8 units 07/08/24 12:55 07/09/24 07:52 Insulin Aspart (*Bkc) 100 Units/Ml SUB-Q Not Given TIDWM [facility] Protocol Insulin Glargine 30 units 07/08/24 09:00 07/09/24 09:06 Insulin Glargine (*Bkc) 100 Units/Ml SUB-Q 30 units Q12HR MARJORIE Administration Lisinopril 40 mg 07/08/24 09:00 07/09/24 09:10 Lisinopril 20 Mg Tablet PO 40 mg DAILY MARJORIE Administration Metronidazole 500 mg 07/08/24 14:00 07/09/24 05:58 Metronidazole 500 Mg Tablet PO 500 mg Q8HR MARJORIE Administration Rosuvastatin Calcium 40 mg 07/08/24 09:00 07/09/24 09:10 Rosuvastatin 20 Mg Tablet PO 40 mg DAILY MARJORIE Administration Radiology Results: ITS Impressions Abdomen/Pelvis CT 07/07/24 16:44 IMPRESSION: 1. Colitis extending from the mid transverse to the mid sigmoid colon which could be infectious, inflammatory or ischemic in etiology. Labs Labs: Laboratory Results - last 24 hr 07/08/24 07/08/24 07/08/24 12:56 17:03 19:41 WBC RBC Hgb 13.6 13.2 Hct 42.3 41.2 MCV MCH MCHC RDW Plt Count MPV Immature Gran % (Auto) Neut % (Auto) Lymph % (Auto) [place] % (Auto) Eos % (Auto) Baso % (Auto) Lymph # (Auto) [place] # (Auto) Eos # (Auto) Baso # (Auto) Abs Immat Gran (auto) Absolute Neuts (auto) Absolute Nucleated RBC Nucleated RBC % % Immature Plt Fraction Sodium Potassium Chloride Carbon Dioxide Anion Gap BUN Creatinine Estim Creat Clear Calc Estimated GFR Glucose POC Capillary Glucose 160 H Calcium Phosphorus Magnesium Total Bilirubin AST ALT Alkaline Phosphatase Total Protein Albumin 07/08/24 07/09/24 07/09/24 22:29 01:19 06:16 WBC 9.7 RBC 4.26 Hgb 13.0 12.8 Hct 40.1 40.1 MCV 94.1 MCH 30.0 MCHC 31.9 L RDW 13.6 Plt Count 137 L MPV 9.9 Immature Gran % (Auto) 0.5 Neut % (Auto) 76.4 H Lymph % (Auto) 15.1 L [place] % (Auto) 5.8 Eos % (Auto) 1.8 Baso % (Auto) 0.4 Lymph # (Auto) 1.46 [place] # (Auto) 0.6 Eos # (Auto) 0.2 Baso # (Auto) 0.0 Abs Immat Gran (auto) 0.05 H Absolute Neuts (auto) 7.4 H Absolute Nucleated RBC 0.000 Nucleated RBC % 0.0 % Immature Plt Fraction 2.3 Sodium 136 L Potassium 3.9 Chloride 102 Carbon Dioxide 31 H Anion Gap 3 L BUN 15 D Creatinine 0.81 Estim Creat Clear Calc 52 Estimated GFR > 60 Glucose 164 H POC Capillary Glucose 132 H Calcium 8.6 Phosphorus 3.8 Magnesium 1.7 Total Bilirubin 1.0 AST 18 ALT 19 Alkaline Phosphatase 75 Total Protein 6.0 L Albumin 3.1 L 07/09/24 07/09/24 07:49 11:31 WBC RBC Hgb Hct MCV MCH MCHC RDW Plt Count MPV Immature Gran % (Auto) Neut % (Auto) Lymph % (Auto) [place] % (Auto) Eos % (Auto) Baso % (Auto) Lymph # (Auto) [place] # (Auto) Eos # (Auto) Baso # (Auto) Abs Immat Gran (auto) Absolute Neuts (auto) Absolute Nucleated RBC Nucleated RBC % % Immature Plt Fraction Sodium Potassium Chloride Carbon Dioxide Anion Gap BUN Creatinine Estim Creat Clear Calc Estimated GFR Glucose POC Capillary Glucose 164 H 224 H Calcium Phosphorus Magnesium Total Bilirubin AST ALT Alkaline Phosphatase Total Protein Albumin
[2024-07-09 14:00] VITALS: BP 101/61; PULSE 78; RESP 16; TEMP 36.6; O2SAT 99
[2024-07-09 17:03] LABS: Glucose Point of Care 122 mg/dl (65-105)
[2024-07-09 21:10] LABS: Glucose Point of Care 117 mg/dl (65-105)
[2024-07-09 21:21] VITALS: BP 133/55; PULSE 72; RESP 16; TEMP 36.6; O2SAT 100
[2024-07-09] MEDS: DONEPEZIL HCL 10 MG TABLET PO (21:25)
[2024-07-10] MEDS: ONDANSETRON INJ 4 MG/2 ML VIAL IV PUSH (00:03)
[2024-07-10] MEDS: HYDROcodone/acetaminophen (*CRX) 5-325 MG TABLET 1 TAB PO (00:05)
--- NOTE | 2024-07-10 04:23 | PC.NURSE ---
Pt. had small bowel movement with some flecks of blood/ stool with small amount of blood on them. No gross hematuria noted, no bloody liquid noted.
[2024-07-10 05:50] VITALS: BP 123/59; PULSE 74; RESP 18; TEMP 36.6; O2SAT 98
[2024-07-10] MEDS: metroNIDAZOLE 500 MG TABLET PO ×2 (06:11→13:31)
[2024-07-10 06:51] LABS: Basophils Percent Auto 0.4 % (0.2-1.2); Eosinophils Absolute Auto 0.2 K/mm3 (0-0.3); Eosinophils Percent Auto 2.5 % (0-4.4); Hemoglobin 12.5 g/dL (12.0-15.0); Immature Granulocyte Absolute 0.03 K/mm3 (0.00-0.031); Immature Granulocyte Percent A 0.4 % (0-0.5); Lymphocytes Absolute Auto 1.29 K/mm3 (0.9-3.2); Lymphocytes Percent Auto 16.8 % (18.3-44.2); Mean Corpuscular HGB Conc 31.3 g/dl (32-36); Mean Corpuscular Hemoglobin 29.8 pg (26-34); Mean Corpuscular Volume 95.5 fl (80-100); Mean Platelet Volume 10.3 fl (7.4-10.4); Monocytes Absolute Auto 0.5 K/mm3 (0.1-0.6); Neutrophils Absolute Auto 5.7 K/mm3 (1.3-6.7); Neutrophils Percent Auto 73.9 % (45.5-73.1); Platelet Count Result 145 k/mm3 (150-375); Red Blood Count 4.19 M/mm3 (4.2-5.4); Red Cell Distribution Width 13.6 % (11.5-14.5); White Blood Count 7.7 K/mm3 (4.5-10.0)
--- NOTE | 2024-07-10 07:07 | P.PNGI_ITS ---
Progress Note: A&P Assessment and Plan (1) Colitis: Code(s): K52.9 - Noninfective gastroenteritis and colitis, unspecified Status: Acute Assessment and Plan: The patient with probable ischemic colitis complicated by C. difficile infection is significantly improved. She has tolerated a full liquid diet and can advance to a low-fat diabetic diet today. If she continues to tolerate the diet, she can be discharged home to complete a 10-day course of fidaxomicin. I explained that even if the colitis is ischemic, there is no specific treatment, and it should heal within weeks. Her afebrile status and normal CBC are reassuring. Discharge can be arranged for tonight after dinner, provided she experiences no abdominal pain , fever of significant bleeding. Subjective Date/time seen: 07/10/24 07:07 Interval history: The patient feels much better, more appetite and is willing to advance her diet. She had a very small bowel movement this morning with minor bleeding. She does not have abdominal pain at this moment. Exam Narrative: Unchanged from previous. Objective Data Vital Signs Vital Signs: Vital Signs - 24 hr 07/09/24 14:00 07/09/24 21:21 07/10/24 05:50 Temperature 97.8 F 97.8 F 97.8 F Pulse Rate 78 72 74 Respiratory Rate 16 16 18 Blood Pressure 101/61 133/55 L 123/59 L Pulse Oximetry 99 100 98 Intake/Output Intake/Output: Intake & Output 07/07/24 07/08/24 07/09/24 07/10/24 23:59 23:59 23:59 23:59 Intake Total 1200 1760 2260 250 Balance 1200 1760 2260 250 Meds/Results Medications: Active Medications Generic Name Dose Route Start Last Admin Trade Name Freq PRN Reason Stop Dose Admin Acetaminophen 650 mg 07/09/24 12:16 Acetaminophen 325 Mg Tablet PO Q6H PRN Mild Pain (1-5) Or Fever Hydrocodone Bitart/Acetaminophen 1 tab 07/09/24 12:16 07/10/24 00:05 Hydrocodone/Acetaminophen (*Crx) 5-325 Mg Tablet PO 1 tab Q6H PRN Administration Pain Rated 6 or Greater Alprazolam 0.25 mg 07/08/24 00:21 Alprazolam (*Crx) 0.25 Mg Tablet PO TID PRN Anxiety Aspirin 81 mg 07/08/24 09:00 07/09/24 09:09 Aspirin 81 Mg Enteric Tablet PO 81 mg DAILY MARJORIE Administration Buspirone HCl 2.5 mg 07/08/24 09:00 07/09/24 17:15 Buspirone Hcl 2.5 Mg Tablet PO 2.5 mg TID MARJORIE Administration Buspirone HCl 5 mg 07/08/24 09:00 07/09/24 17:15 Buspirone Hcl 5 Mg Tablet PO 5 mg TID MARJORIE Administration Clopidogrel Bisulfate 75 mg 07/08/24 09:00 07/08/24 08:57 Clopidogrel Bisulfate 75 Mg Tablet PO 75 mg DAILY MARJORIE Administration Dextrose 12.5 gm 07/08/24 12:45 Dextrose 50% 25 Gm/50 Ml Syringe IV PUSH PRN PRN Hypoglycemia Protocol Donepezil HCl 10 mg 07/08/24 21:00 07/09/24 21:25 Donepezil Hcl 10 Mg Tablet PO 10 mg HS MARJORIE Administration Duloxetine HCl 60 mg 07/08/24 09:00 07/09/24 09:10 Duloxetine Hcl 60 Mg Capsule.Dr PO 60 mg DAILY MARJORIE Administration Fidaxomicin 200 mg 07/07/24 21:00 07/09/24 21:25 Fidaxomicin 200 Mg Tablet PO 200 mg Q12HR MARJORIE Administration Glucagon 1 mg 07/08/24 12:45 Glucagon For Inj 1 Mg Vial IM PRN PRN Hypoglycemia Protocol Glucose 15 gm 07/08/24 12:45 Glucose Oral Gel 15 Gm Of Glucse In 37.5 Gm Tube PO PRN PRN Hypoglycemia Protocol Dextrose 1,000 mls @ 100 mls/hr 07/08/24 12:45 Dextrose 5% 1,000 Ml IVPB PRN PRN Hypoglycemia Protocol Insulin Aspart 5 units 07/08/24 12:55 07/09/24 17:15 Insulin Aspart (*Bkc) 100 Units/Ml 0.067 units/kg (5 units) 5 units SUB-Q Administration TIDWM [facility] Insulin Aspart 4 - 8 units 07/08/24 12:55 07/09/24 17:04 Insulin Aspart (*Bkc) 100 Units/Ml SUB-Q Not Given TIDWM [facility] Protocol Insulin Glargine 30 units 07/08/24 09:00 07/09/24 21:25 Insulin Glargine (*Bkc) 100 Units/Ml SUB-Q 30 units Q12HR MARJORIE Administration Lisinopril 40 mg 07/08/24 09:00 07/09/24 09:10 Lisinopril 20 Mg Tablet PO 40 mg DAILY MARJORIE Administration Metronidazole 500 mg 07/08/24 14:00 07/10/24 06:11 Metronidazole 500 Mg Tablet PO 500 mg Q8HR MARJORIE Administration Ondansetron HCl 4 mg 07/09/24 23:51 07/10/24 00:03 Ondansetron Inj 4 Mg/2 Ml Vial IV PUSH 4 mg Q6H PRN Administration Nausea And Vomiting Rosuvastatin Calcium 40 mg 07/08/24 09:00 07/09/24 09:10 Rosuvastatin 20 Mg Tablet PO 40 mg DAILY MARJORIE Administration Radiology Results: ITS Impressions Abdomen/Pelvis CT 07/07/24 16:44 IMPRESSION: 1. Colitis extending from the mid transverse to the mid sigmoid colon which could be infectious, inflammatory or ischemic in etiology. Labs Labs: Laboratory Results - last 24 hr 07/09/24 07/09/24 07/09/24 06:16 07:49 11:31 WBC 9.7 RBC 4.26 Hgb 12.8 Hct 40.1 MCV 94.1 MCH 30.0 MCHC 31.9 L RDW 13.6 Plt Count 137 L MPV 9.9 Immature Gran % (Auto) 0.5 Neut % (Auto) 76.4 H Lymph % (Auto) 15.1 L Ray % (Auto) 5.8 Eos % (Auto) 1.8 Baso % (Auto) 0.4 Lymph # (Auto) 1.46 Ray # (Auto) 0.6 Eos # (Auto) 0.2 Baso # (Auto) 0.0 Abs Immat Gran (auto) 0.05 H Absolute Neuts (auto) 7.4 H Absolute Nucleated RBC 0.000 Nucleated RBC % 0.0 % Immature Plt Fraction 2.3 Sodium 136 L Potassium 3.9 Chloride 102 Carbon Dioxide 31 H Anion Gap 3 L BUN 15 D Creatinine 0.81 Estim Creat Clear Calc 52 Estimated GFR > 60 Glucose 164 H POC Capillary Glucose 164 H 224 H Calcium 8.6 Phosphorus 3.8 Magnesium 1.7 Total Bilirubin 1.0 AST 18 ALT 19 Alkaline Phosphatase 75 Total Protein 6.0 L Albumin 3.1 L 07/09/24 07/09/24 07/10/24 17:00 20:58 05:40 WBC 7.7 RBC 4.19 L Hgb 12.5 Hct 40.0 MCV 95.5 MCH 29.8 MCHC 31.3 L RDW 13.6 Plt Count 145 L MPV 10.3 Immature Gran % (Auto) 0.4 Neut % (Auto) 73.9 H Lymph % (Auto) 16.8 L Ray % (Auto) 6.0 Eos % (Auto) 2.5 Baso % (Auto) 0.4 Lymph # (Auto) 1.29 Ray # (Auto) 0.5 Eos # (Auto) 0.2 Baso # (Auto) 0.0 Abs Immat Gran (auto) 0.03 Absolute Neuts (auto) 5.7 Absolute Nucleated RBC 0.000 Nucleated RBC % 0.0 % Immature Plt Fraction Sodium Potassium Chloride Carbon Dioxide Anion Gap BUN Creatinine Estim Creat Clear Calc Estimated GFR Glucose POC Capillary Glucose 122 H 117 H Calcium Phosphorus Magnesium Total Bilirubin AST ALT Alkaline Phosphatase Total Protein Albumin
[2024-07-10 08:00] VITALS: O2SAT 99
[2024-07-10 08:00] LABS: Hemoglobin A1C 7.9 % (<5.7)
[2024-07-10 08:03] LABS: Glucose Point of Care 109 mg/dl (65-105)
[2024-07-10] MEDS: INSULIN GLARGINE (*BKC) 100 UNITS/ML 30 UNITS SUB-Q (08:36)
[2024-07-10] MEDS: CLOPIDOGREL BISULFATE 75 MG TABLET PO (08:38)
[2024-07-10] MEDS: ROSUVASTATIN 20 MG TABLET 40 MG PO (08:40)
[2024-07-10] MEDS: FIDAXOMICIN 200 MG TABLET PO (08:40)
[2024-07-10] MEDS: ASPIRIN 81 MG ENTERIC TABLET PO (08:40)
[2024-07-10] MEDS: lisinopriL 20 MG TABLET 40 MG PO (08:40)
[2024-07-10] MEDS: busPIRone HCL 2.5 MG TABLET PO ×2 (08:40→12:20)
[2024-07-10] MEDS: busPIRone HCL 5 MG TABLET PO ×2 (08:41→12:20)
[2024-07-10] MEDS: DULoxetine HCL 60 MG CAPSULE.DR PO (08:41)
[2024-07-10 09:01] VITALS: O2SAT 99
[2024-07-10] MEDS: INSULIN ASPART (*BKC) 100 UNITS/ML SUB-Q ×3 (09:17→18:19)
--- NOTE | 2024-07-10 09:54 | PC.NURSE ---
Dr Lim notified of small amount of blood in toilet after having small bowel movement.
--- NOTE | 2024-07-10 10:48 | P.PNIM_ITS ---
Progress Note: A&P Assessment and Plan (1) Colitis: Code(s): K52.9 - Noninfective gastroenteritis and colitis, unspecified Status: Acute Assessment and Plan: Patient presents with abdominal pain and rectal bleeding. Rectal exam in ED showing gross bright red blood with no melena, no large hemorrhoids and no fissures. CT Abd/Pelvis showing colitis extending from mid transverse to the mid sigmoid. CDiff toxin positive. WBC 13K. Hgb remaining normal. WBC normal.Having stools with dark blood but probably old blood GI consulted and appreciate their input. Discussed with GI who feels this may be ischemic colitis Holding Plavix. Monitor clinically. (2) C. difficile colitis: Code(s): A04.72 - Enterocolitis due to Clostridium difficile, not specified as recurrent Status: Acute Assessment and Plan: Patient with CDiff colitis. [place] related to recently concluded course of antibiotics in the outpatient setting. Continue fidaxomicin. As above (3) Type 2 diabetes mellitus with diabetic neuropathy, unspecified: Code(s): E11.40 - Type 2 diabetes mellitus with diabetic neuropathy, unspecified Status: Acute Assessment and Plan: A1c 7.9%. The patient's blood glucose was reviewed on 2/3 Glucose better controlled Continue AccuCheks covering with sliding scale. Hypoglycemia protocol available as needed. Continue current medications (4) Essential (primary) hypertension: Code(s): I10 - Essential (primary) hypertension Status: Acute Assessment and Plan: Patient's blood pressure was reviewed on 2/3 Blood pressure more stable Will continue to monitor Plan DVT Prophylaxis - SCDs Code status - full Subjective Date/time seen: 07/10/24 10:48 Interval history: 74yo female with DM, peripheral neuropathy, HTN and IBS here for abdominal pain. Having small BMs with dark blood. Abd pain much better. no Cp or SOB. Diet to be advanced today. Exam Narrative: AF 97.8 123/59 74 18 99% ra Gen - NARD sitting up in chair Chest - distant BS. CV - RRR S1/S2 Abd - soft, +BS, minimal tenderness, +BS Ext - No pedal edema Psych - Nml mood and affect Skin - Warm and dry Objective Data Vital Signs Vital Signs: Vital Signs - 24 hr 07/09/24 14:00 07/09/24 21:21 07/10/24 05:50 Temperature 97.8 F 97.8 F 97.8 F Pulse Rate 78 72 74 Respiratory Rate 16 16 18 Blood Pressure 101/61 133/55 L 123/59 L Pulse Oximetry 99 100 98 Oxygen Delivery 07/10/24 09:01 Temperature Pulse Rate Respiratory Rate Blood Pressure Pulse Oximetry 99 Oxygen Delivery Room Air Intake/Output Intake/Output: Intake & Output 07/07/24 07/08/24 07/09/24 07/10/24 23:59 23:59 23:59 23:59 Intake Total 1200 1760 2260 490 Balance 1200 1760 2260 490 Meds/Results Medications: Active Medications Generic Name Dose Route Start Last Admin Trade Name Freq PRN Reason Stop Dose Admin Acetaminophen 650 mg 07/09/24 12:16 Acetaminophen 325 Mg Tablet PO Q6H PRN Mild Pain (1-5) Or Fever Hydrocodone Bitart/Acetaminophen 1 tab 07/09/24 12:16 07/10/24 00:05 Hydrocodone/Acetaminophen (*Crx) 5-325 Mg Tablet PO 1 tab Q6H PRN Administration Pain Rated 6 or Greater Alprazolam 0.25 mg 07/08/24 00:21 Alprazolam (*Crx) 0.25 Mg Tablet PO TID PRN Anxiety Aspirin 81 mg 07/08/24 09:00 07/10/24 08:40 Aspirin 81 Mg Enteric Tablet PO 81 mg DAILY MARJORIE Administration Buspirone HCl 2.5 mg 07/08/24 09:00 07/10/24 08:40 Buspirone Hcl 2.5 Mg Tablet PO 2.5 mg TID MARJORIE Administration Buspirone HCl 5 mg 07/08/24 09:00 07/10/24 08:41 Buspirone Hcl 5 Mg Tablet PO 5 mg TID MARJORIE Administration Clopidogrel Bisulfate 75 mg 07/08/24 09:00 07/10/24 08:38 Clopidogrel Bisulfate 75 Mg Tablet PO 75 mg DAILY MARJORIE Administration Dextrose 12.5 gm 07/08/24 12:45 Dextrose 50% 25 Gm/50 Ml Syringe IV PUSH PRN PRN Hypoglycemia Protocol Donepezil HCl 10 mg 07/08/24 21:00 07/09/24 21:25 Donepezil Hcl 10 Mg Tablet PO 10 mg HS MARJORIE Administration Duloxetine HCl 60 mg 07/08/24 09:00 07/10/24 08:41 Duloxetine Hcl 60 Mg Capsule. PO 60 mg DAILY MARJORIE Administration Fidaxomicin 200 mg 07/07/24 21:00 07/10/24 08:40 Fidaxomicin 200 Mg Tablet PO 200 mg Q12HR MARJORIE Administration Glucagon 1 mg 07/08/24 12:45 Glucagon For Inj 1 Mg Vial IM PRN PRN Hypoglycemia Protocol Glucose 15 gm 07/08/24 12:45 Glucose Oral Gel 15 Gm Of Glucse In 37.5 Gm Tube PO PRN PRN Hypoglycemia Protocol Dextrose 1,000 mls @ 100 mls/hr 07/08/24 12:45 Dextrose 5% 1,000 Ml IVPB PRN PRN Hypoglycemia Protocol Insulin Aspart 5 units 07/08/24 12:55 07/10/24 09:17 Insulin Aspart (*Bkc) 100 Units/Ml 0.067 units/kg (5 units) 5 units SUB-Q Administration TIDWM [facility] Insulin Aspart 4 - 8 units 07/08/24 12:55 07/10/24 08:17 Insulin Aspart (*Bkc) 100 Units/Ml SUB-Q Not Given TIDWM [facility] Protocol Insulin Glargine 30 units 07/08/24 09:00 07/10/24 08:36 Insulin Glargine (*Bkc) 100 Units/Ml SUB-Q 30 units Q12HR MARJORIE Administration Lisinopril 40 mg 07/08/24 09:00 07/10/24 08:40 Lisinopril 20 Mg Tablet PO 40 mg DAILY MARJORIE Administration Metronidazole 500 mg 07/08/24 14:00 07/10/24 06:11 Metronidazole 500 Mg Tablet PO 500 mg Q8HR MARJORIE Administration Ondansetron HCl 4 mg 07/09/24 23:51 07/10/24 00:03 Ondansetron Inj 4 Mg/2 Ml Vial IV PUSH 4 mg Q6H PRN Administration Nausea And Vomiting Rosuvastatin Calcium 40 mg 07/08/24 09:00 07/10/24 08:40 Rosuvastatin 20 Mg Tablet PO 40 mg DAILY MARJORIE Administration Radiology Results: ITS Impressions Abdomen/Pelvis CT 07/07/24 16:44 IMPRESSION: 1. Colitis extending from the mid transverse to the mid sigmoid colon which could be infectious, inflammatory or ischemic in etiology. Labs Labs: Laboratory Results - last 24 hr 02/02/25 02/02/25 02/02/25 11:31 17:00 20:58 WBC RBC Hgb Hct MCV MCH MCHC RDW Plt Count MPV Immature Gran % (Auto) Neut % (Auto) Lymph % (Auto) [place] % (Auto) Eos % (Auto) Baso % (Auto) Lymph # (Auto) [place] # (Auto) Eos # (Auto) Baso # (Auto) Abs Immat Gran (auto) Absolute Neuts (auto) Absolute Nucleated RBC Nucleated RBC % POC Capillary Glucose 224 H 122 H 117 H Hemoglobin A1c 07/10/24 07/10/24 05:40 07:57 WBC 7.7 RBC 4.19 L Hgb 12.5 Hct 40.0 MCV 95.5 MCH 29.8 MCHC 31.3 L RDW 13.6 Plt Count 145 L MPV 10.3 Immature Gran % (Auto) 0.4 Neut % (Auto) 73.9 H Lymph % (Auto) 16.8 L [place] % (Auto) 6.0 Eos % (Auto) 2.5 Baso % (Auto) 0.4 Lymph # (Auto) 1.29 [place] # (Auto) 0.5 Eos # (Auto) 0.2 Baso # (Auto) 0.0 Abs Immat Gran (auto) 0.03 Absolute Neuts (auto) 5.7 Absolute Nucleated RBC 0.000 Nucleated RBC % 0.0 POC Capillary Glucose 109 H Hemoglobin A1c 7.9 H
[2024-07-10 11:57] LABS: Glucose Point of Care 169 mg/dl (65-105)
[2024-07-10 14:00] VITALS: BP 129/71; PULSE 81; RESP 16; TEMP 36.6; O2SAT 98
[2024-07-10 16:57] LABS: Glucose Point of Care 160 mg/dl (65-105)
--- NOTE | 2024-07-10 17:22 | P.DS_ITS ---
DS: Admitting Diagnosis Discharge Date 07/10/24 Admitting Diagnosis Abdominal pain DS: Discharge Diagnosis Discharge Diagnosis (1) Colitis: Code(s): K52.9 - Noninfective gastroenteritis and colitis, unspecified Status: Acute (2) C. difficile colitis: Code(s): A04.72 - Enterocolitis due to Clostridium difficile, not specified as recurrent Status: Acute (3) Type 2 diabetes mellitus with diabetic neuropathy, unspecified: Code(s): E11.40 - Type 2 diabetes mellitus with diabetic neuropathy, unspecified Status: Acute (4) Essential (primary) hypertension: Code(s): I10 - Essential (primary) hypertension Status: Acute DS: Summary Hospital Course Reason for hospitalization: 74yo female with DM, peripheral neuropathy, HTN and IBS here for abdominal pain. Please see H&P for details. Hospital Course: Patient presents with abdominal pain and rectal bleeding. Rectal exam in ED showing gross bright red blood with no melena, no large hemorrhoids and no fissures. CT Abd/Pelvis showing colitis extending from mid transverse to the mid sigmoid. CDiff toxin positive. [place] related to recently concluded course of antibiotics in the outpatient setting. WBC 13K. She was started on fidaxomicin. Also started on Cipro and Flagyl for possible bacterial colitis but changed to oral Flagyl. She had a colonoscopy on 04/04/24 and report was reviewed. Hgb r emained normal. WBC normalized. GI consulted and appreciate their input. Discussed with GI who feels this may be ischemic colitis as well. Held Plavix. Rectal bleeding stopped. She was having bright red blood on the toilet paper but not in the stool felt related to hemorrhoids. She was started on clear liquid diet and slowly advanced. She was started on diabetic diet today and tolerated this well. She felt comfortable with discharge. She overall did well and was able to be discharged on 07/10/24. Status at Discharge Cognitive/behavioral status at discharge: stable Time Spent with Patient Time attestation: Total time spent providing and/or coordinating discharge services: 35 minutes Time spent: Greater than 30 minutes Exam Narrative: AF 97.8 123/59 74 18 99% ra Gen - NARD sitting up in chair Chest - distant BS. CV - RRR S1/S2 Abd - soft, +BS, minimal tenderness, +BS Ext - No pedal edema Psych - Nml mood and affect Skin - Warm and dry DS: Data Data Completed and Pending Labs on day of discharge: Labs from last 24 hours 07/10/24 07/10/24 07/10/24 16:37 11:36 07:57 WBC RBC Hgb Hct MCV MCH MCHC RDW Plt Count MPV Immature Gran % (Auto) Neut % (Auto) Lymph % (Auto) [place] % (Auto) Eos % (Auto) Baso % (Auto) Lymph # (Auto) [place] # (Auto) Eos # (Auto) Baso # (Auto) Abs Immat Gran (auto) Absolute Neuts (auto) Absolute Nucleated RBC Nucleated RBC % POC Capillary Glucose 160 H 169 H 109 H Hemoglobin A1c 07/10/24 07/09/24 05:40 20:58 WBC 7.7 RBC 4.19 L Hgb 12.5 Hct 40.0 MCV 95.5 MCH 29.8 MCHC 31.3 L RDW 13.6 Plt Count 145 L MPV 10.3 Immature Gran % (Auto) 0.4 Neut % (Auto) 73.9 H Lymph % (Auto) 16.8 L [place] % (Auto) 6.0 Eos % (Auto) 2.5 Baso % (Auto) 0.4 Lymph # (Auto) 1.29 [place] # (Auto) 0.5 Eos # (Auto) 0.2 Baso # (Auto) 0.0 Abs Immat Gran (auto) 0.03 Absolute Neuts (auto) 5.7 Absolute Nucleated RBC 0.000 Nucleated RBC % 0.0 POC Capillary Glucose 117 H Hemoglobin A1c 7.9 H Discharge Plan Discharge Attending physician on discharge: Hunter Lim Consulting providers: Miguel Martinez Discharging Clinician: Hunter Lim Anticipated Discharge Date/Time: 07/10/24 17:29 Patient Disposition: Home, Self-Care Activity: as tolerated Diet: diabetic Discharge Instructions: Please check glucose before meals and before bed. Record and bring into your doctor for review. Check blood pressure 1 to 2 times a day. Record and bring into your doctor for review. Call your doctor if your blood pressure is greater than 180/110. Please complete your antibiotic course even if you are starting to feel well. Take precautions to avoid falls. Rise slowly from a lying or sitting position. Pause before standing or walking. Contact your doctor or call 911 and come to the Emergency Room if you have persistent rectal bleeding, lightheadedness with standing or other worrisome symptoms. Avoid NSAIDs (ibuprofen, naproxen, Aleve). Tylenol is safe to take. Follow-up with your primary care provider in 1-2 weeks. Please call for appointment. Thank you for using [facility] for your health care needs. Patient Instructions: Antibiotic Form Patient Language: Nepali Stand Alone Forms: General Discharge Information Follow-up/Referrals: Horacio Ma MD [Primary Care Provider] - Call for Appointment Discharge Medications: New Dificid 200 mg Tablet 200 mg PO Q12HR Qty: 14 0RF metronidazole 500 mg Tablet 500 mg PO Q8HR Qty: 12 0RF Continued aspirin [Adult Low Dose Aspirin] 81 mg tablet,delayed release (DR/EC) 81 mg PO DAILY Vitamin C 100 mg tablet 100 mg PO DAILY vitamin B complex Tablet 1 tablet PO DAILY turmeric 400 mg capsule 400 mg PO DAILY lisinopril 40 mg tablet 40 mg PO DAILY insulin aspart U-100 100 unit/mL (3 mL) insulin pen 8 unit SUBCUT TIDWM Patient Comments: USES SLIDING SCALE FOR DOSAGE Levemir FlexPen 100 unit/mL (3 mL) insulin pen 30 unit SUBCUT BID buspirone 7.5 mg tablet 7.5 mg PO TID Patient Comments: THINKS SHE ONLY TAKES ONCE A DAY Rx Instructions: TAKE 1 TABLET TID DAILY duloxetine 60 mg capsule,delayed release(DR/EC) 60 mg PO DAILY Rx Instructions: TAKE 1 CAPSULE EVERY DAY Ozempic 1 mg/dose (4 mg/3 mL) pen injector 2 mg SUBCUT WEEKLY donepezil 10 mg tablet 10 mg PO HS alprazolam 0.25 mg Tablet 0.25 mg PO TID PRN (Reason: Anxiety) rosuvastatin 40 mg tablet 40 mg PO DAILY cholecalciferol (vitamin D3) [Vitamin D3] 25 mcg (1,000 unit) Tablet 25 mcg PO DAILY biotin 1,000 mcg Tablet,Chewable 1,000 mcg PO DAILY Held clopidogrel 75 mg tablet 75 mg PO DAILY Hold Instructions: Resume on 07/12/24. Rx Instructions: TAKE 1 TABLET EVERY DAY Date of admission: 07/08/24 07:44 Primary Care Provider: Horacio Ma Admitting Provider: Brian Lackey Attending physician on admission: Brian Lackey Condition: Stable Hospitalist MIPS Heart Failure (Exclusion) Patient has history of Heart Transplant or Left Ventricular Assistive Device?: No IF YES, STOP HERE Heart Failure (Qualifier) Patient has current or prior documentation of LVEF less than or equal to 40%, or mod/servere depressed LVSF?: No IF NO, STOP HERE
--- NOTE | 2024-07-11 08:19 | PC.NURSE ---
Stool cx is negative. Dr. Carina mandel.
== END 2024-07-10 18:55 | disposition home or self-care (01) | DRG 373 ==
LOC: ANHED 18:58 → ANH3MEDSUR 20:33
PROVIDERS: Physician Assistant; Admitting Provider General Practice; Emergency Provider Physician Assistant; PCP Family Medicine; Visit Provider Internal Medicine
DX: A04.72 Enterocolitis due to Clostridium difficile, not specified as recurrent (principal); I10 Essential (primary) hypertension; E11.42 Type 2 diabetes mellitus with diabetic polyneuropathy; K58.9 Irritable bowel syndrome, unspecified; Z79.02 Long term (current) use of antithrombotics/antiplatelets; Z79.4 Long term (current) use of insulin
CPT/HCPCS: 36415; 74177; 80048; 80053; 81001; 82948; 83036; 83605; 83690; 83735; 84100; 85014; 85018; 85025; 85055; 85610; 85730; 87045; 87427; 87449; 87493; 96365; 96366; 96367; 96375; 96376; 99285; A9270; G0378; J0744; J1650; J1815; J1836; J2270; J2405; J7120; Q9967

== ENCOUNTER → 2024-08-10 09:43 | Outpatient (CLI) | payer MEDICARE, OTHER, SELFPAY ==
--- NOTE | ~2024-08-10 | XR_ITS ---
EXAMINATION: XR finger 2nd LT min 2V DATE: 08/10/2024 10:00 INDICATION: Left hand second digit trigger finger. TECHNIQUE: 3 views of left hand second digit were obtained. COMPARISON: None. FINDINGS: Alignment is normal. No fracture. There is mild osteoarthritis of second metacarpophalangea l joint and second proximal and distal interphalangeal joints. IMPRESSION: 1. Mild polyarticular osteoarthritis. Reviewed, dictated and finalized at location [] ER MAKER
--- OUTSIDE RECORDS SUMMARY | 2024-08-10 10:49 | XMS_ITS | Continuity of Care Document ---
Author Organization [facility] Address [address] [place] [address] Phone Care Team Providers Care Film Cleaner Name Role Phone Dumont OD, Maicol Unavailable Unavailable Procedures Procedure Date CL Replacement - Vistakon Disp W/BW Soft Tax - Medical Eye Exam, New Patient Refraction Advance Directives Directive Yes / No Effective Date File Name No Information Encounters Encounter Description Practice Location Reason(s) For Visit Diagnoses Date Provider Providers Copied on Encounter [facility], [address] [place] [address] [address], [place], [place], [id number], tel:[phone] [facility] No Information Sep-2 8-200 7 Dumont OD Maicol. [address] , [address], [place], [place], [facility], [place]. tel:[phone] [facility], [address] [place] [address] [address], [place], [place], [id number], tel:[phone] [facility] No Information Sep-1 3-200 7 Dumont OD Maicol. [address] , [address], [place], [place], [facility], [place]. tel:[phone] Referring Provider: Bharat Gurrola MD F, [address] [facility], [place], [address]. tel:[phone] Family History Family Member Type Diagnosis Age [...]
--- OUTSIDE RECORDS SUMMARY | 2024-08-10 10:49 | XMS_ITS | Referral Summary ---
Author Organization [facility] [address] [place] [address] Care Team Providers Care Eyedotter Name Role Phone Jad Fisher MD Primary Care Provider [phone] Chang Ward MD Unavailable Encounters Date Type Department Care Team Description 07/14/2024 Telephone Family Phys[facility] [address] [place] [address] Jad Fisher MD 06/28/2024 Telephone [facility] of [address] [address] Raj Stoddard MD [place] 06/22/2024 11:00 AM SUPPLIER DEVELOPMENT MANAGER Office Visit [facility] 6th [place] [address] Syeda Fernandez MD Arthritis of carpometacarpal (CMC) joint of left thumb (Primary Dx); Trigger finger of left thumb; Left carpal tunnel syndrome 06/08/2024 11:15 AM SUPPLIER DEVELOPMENT MANAGER Office Visit [facility] [address] [address] Raj Stoddard MD Type 2 diabetes mellitus with hyperglycemia, with long-term current use of insulin (HCC) (Primary Dx) from Last 3 Months Allergies Active Allergy [...] Ultra-Fine Mini Pen Needle) 31 gauge x 16 needle USE TO TAKE INSULIN 4 X [...] 45 mL 4 12/08/19 24 Active lisinopriL (PRINIVIL,ZESTR IL) 40 mg tablet TAKE 1 TABLET EVERY DAY 90 tablet 3 02/09/20 24 Active alendronate (FOSAMAX) 70 mg tabletIndicatio ns:Post-[place] Osteoporosis Take 1 tablet (70 mg total) by mouth every 7 days Take in the morning with a full glass of water, on an empty stomach, and do not take anything else by mouth or lie down for the next 30 min. 12 tablet 3 04/18/20 24 2024 Active guaiFENesin-dex tromethorphan ER (MUCINEX DM) 600-30 mg tablet extended [...] week 9 mL 3 06/08/19 25 Active busPIRone (BUSPAR) 7.5 mg tablet TAKE 1 TABLET THREE TIMES DAILY 270 tablet 3 08/08/19 25 Active busPIRone (BUSPAR) 7.5 mg tablet TAKE 1 TABLET THREE TIMES DAILY 300 tablet 1 03/11/20 24 2024 Discontinued Active Problems Problem Noted Date Diagnosed Date Troponin level elevated 04/29/2024 COVID 04/29/2024 Age-related osteoporosis wit hout current pathological fracture 04/12/2024 Assessment & Plan (04/12/2024 11:22 AM SUPPLIER DEVELOPMENT MANAGER): Started on Fosamax. Continue taking vitamin D. [...] surgery. Updated referral and reached out to [facility] orthopedic surgery Dr. Ward, plan for office [...] Rosuvastatin 40mg. Last lipid panel: 02/19/23 LDL=73, YL=143. No changes at this time. Assessment & Plan (08/12/2023 11:01 AM SUPPLIER DEVELOPMENT MANAGER): Chronic, stable LDL cholesterol goal Continue rosuvastatin Assessment & Plan (05/04/2023 10:39 AM SUPPLIER DEVELOPMENT MANAGER): Chronic problem, currently taking Rosuvastatin 40mg. Last lipid panel: 02/19/23 LDL=73, NT=784. No changes at this time. Assessment & Plan (01/19/2023 10:03 AM CDT): Chronic, well controlled Continue Rosuvastatin Assessment & Plan (08/18/2022 10:33 AM CDT): Chronic problem, currently taking Rosuvastatin 40mg. Last lipid panel: 01/30/22 LDL=62, AA=174. No changes at this time. Hypertension associated with stage 2 chronic kidney disease due to type 2 diabetes mellitus 08/17/2022 Assessment & Plan (04/12/2024 11:42 AM SUPPLIER DEVELOPMENT MANAGER): Normotensive. Continue taking lisinopril. Red flags reviewed. Assessment & Plan (12/16/2023 10:21 AM CDT): Chronic problem, BP controlled on current lisinopril 40mg daily. No changes at this time. Assessment & Plan (09/13/2023 11:43 AM CDT): Normotensive. Continue lisinopril, clonidine. Will continue monitor. Assessment & Plan (05/04/2023 10:39 AM SUPPLIER DEVELOPMENT MANAGER): Chronic problem, BP controlled on current lisinopril 40mg daily. No changes at this time. Assessment & Plan (08/18/2022 10:33 AM CDT): Chronic problem, BP controlled on current quinapril 40mg daily. No changes at this time. Mild cognitive impairment 05/28/2022 Assessment & Plan (05/28/2022 4:07 PM SUPPLIER DEVELOPMENT MANAGER): Patient started on donepezil around 01/2022 and [...] Polyneuropathy due to type 2 diabetes mellitus 1 Assessment & Plan (12/16/2023 10:21 AM CDT): Chronic problem. Currently taking Gabapentin 300mg bid. Reviewed foot care; needs to lotion daily. Aware to check feet nightly, not to go barefoot. Assessment & Plan (08/12/2023 11:00 AM SUPPLIER DEVELOPMENT MANAGER): Foot care discussed Continue gabapentin Assessment & Plan (05/04/2023 11:00 AM SUPPLIER DEVELOPMENT MANAGER): Chronic problem. Currently taking Gabapentin 300mg bid. Aware to check feet nightly & not go barefoot. Assessment & Plan (01/19/2023 10:01 AM CDT): Foot care discussed Increase gabapentin 300 mg tid Pain of toe of right foot 03/17/2021 Cramps of lower extremity 09/16/2020 Mesenteric artery stenosis 09/16/2020 Renal artery stenosis 09/16/2020 Chest pain [...] aspirin starting Wednesday 11/22. Coronary arteriosclerosis in squaxin artery 02/06 Overview (09/11/2016): CAD in squaxin artery Impairment of balance 02/07/2016 Overview (09/11/2016): [...] UNCNTRLD Assessment & Plan (06/08/2024 12:04 PM SUPPLIER DEVELOPMENT MANAGER): Chronic, uncontrolled with a higher A1c Importance [...] placed. Assessment & Plan (08/12/2023 11:00 AM SUPPLIER DEVELOPMENT MANAGER): Chronic, stable but not at goal Importance of diet and exercise discussed Continue current regimen with Levemir, Humalog, Ozempic and Farxiga Patient interested in an insulin pump Will get C-peptide, fasting glucose and galen antibody If appropriate, will start process for insulin pump Assessment & Plan (05/04/2023 10:58 AM SUPPLIER DEVELOPMENT MANAGER): Chronic problem. A1c improved from 8.0% 01/2023 [...] hours). Assessment & Plan (07/09/2022 4:06 PM SUPPLIER DEVELOPMENT MANAGER): Hba1c was Lab Results Component Value Date [...] Send me a message every week, via BookThat[employer], to let me know how you are doing with your sugars and for us to look at your sugars on Freestyle Rafaela Cardiac arrhythmia 01/13/2013 Overview (05/04/2021): History - Overview: History - Cerebral infarction 01/13/2013 Overview (05/04/2021): R caudate and putamen stroke Irregular heart rhythm 01/13/2013 Overview (05/04/2021): Overview: History - Type 2 diabetes mellitus with diabetic neuropath y 01/13/2013 Assessment & Plan (09/13/2023 11:42 AM [...] stroke Assessment & Plan (05/28/2022 4:08 PM SUPPLIER DEVELOPMENT MANAGER): Continues tight control of BP, statin and [...] (12/25/2021): Essential hypertension Overview: Essential hypertension Immunizations Immunization Administration Dates Next Due Influenza, Quadrivalent, Hig [...] 08/20/2022 How often do you attend chur or druze services? 1 to 4 times per year 08/20/2022 Do you belong to any clubs o r organizations such as yarsanism groups, unions, fraternal or athletic groups, or [...] staff should administer the PHQ-9) 0 06/08/2024 [facility] - Occupational Stress Questionnaire Answer Date Recorded [...] place to sleep or slept in a chcf (including now)? No 08/20/2022 PHQ-9 Answer Date Recorded PHQ-9 Total Score 11 02/24/2024 Personal Safety Answer Date Recorded Have you ever been in or are you currently in a harmful physical or emotional relationship or is someone making you feel afraid or unsafe? Denies 04/29/2024 Comments No Sex and Gender Information Value Date Recorded Sex Assigned at Not on file Legal Sex Female 6:13 AM SUPPLIER DEVELOPMENT MANAGER Gender Identity Not on file Sexual Orientation Straight 06/08/2024 11 :24 AM SUPPLIER DEVELOPMENT MANAGER Last Filed Vital Signs Vital Sign Reading Time Taken Comments Blood Pressure 132/70 06/08/2024 11:34 AM SUPPLIER DEVELOPMENT MANAGER Pulse 88 06/08/2024 11:34 AM SUPPLIER DEVELOPMENT MANAGER Temperature 36.2 C (97.2 F) 05/01/2024 7:45 AM SUPPLIER DEVELOPMENT MANAGER Respiratory Rate 20 06/08/2024 11:34 AM SUPPLIER DEVELOPMENT MANAGER Oxygen Saturation 97% 05/01/2024 7:45 AM SUPPLIER DEVELOPMENT MANAGER Inhaled Oxygen Concentration - - Weight 76.8 kg (169 lb 6.4 oz) 06/08/2024 11:34 AM SUPPLIER DEVELOPMENT MANAGER Height 154.9 cm (5' 1 ) 06/08/2024 11:34 AM SUPPLIER DEVELOPMENT MANAGER Body Mass Index 32.01 06/08/2024 11:34 AM SUPPLIER DEVELOPMENT MANAGER Plan of Treatment Not on file Medical Devices Implanted Type Area [employer] Professor Device Identifier Shelf Expiration Date Model / Serial / Lot [employer] Dvr [id number] [place] Screw Hole Fix Angle Radius Left 1318-21-050 - [id number] Implanted:Qty: 1 on 11/26/2022 by Chang Ward MD at [facility] Left: Wrist [employer] 1318-21-050 / / [employer] Dvr 2.7mm 18mm 3 Lead Thread Lock Taper Head Radius Distal Volar 131- - [id number] Implanted:Qty: 1 on 11/26/2022 by Chang Ward MD at [facility] Left: Wrist [employer] 1312-27-118 / / [employer] Dvr 2.7mm 20mm Lock Spine Screw Bone Nonsterile 131-27-120 - [id number] Implanted:Qty: 2 on 11/26/2022 by Chang Ward MD at [facility] Left: Wrist [employer] 1312--120 / / [employer] 2.7mm 13mm Nonlock Low Profile Radius Distal Screw Bone [id number] - [id number] Implanted:Qty: 1 on 11/26/2022 by Chang Ward MD at [facility] Left: Wrist [employer] [id number] / / [employer] Dvr 2.7mm 14mm Lock Cortical Screw Bone Nonsterile Latex Free 1312-27-114 - [id number] Implanted:Qty: 2 on 11/26/2022 by Chang Ward MD at [facility] Left: Wrist [employer] 1312-27-114 / / [employer] Dvr 2.7mm 13mm Lock 3 Lead Thread Crosslock Taper Head Radius 1312-27-113 - [id number] Implanted:Qty: 1 on 11/26/2022 by Chang Ward MD at [facility] Left: Wrist [employer] 1312-27-113 / / Procedures Procedure Name Priority Date/Time Associated Diagnosis Comments POCT GLUCOSE Routine 06/08/2024 11:35 AM SUPPLIER DEVELOPMENT MANAGER Type 2 diabetes mellitus with hyperglycemia, with long-term current use of insulin (HCC) POCT HEMOGLOBIN A1C Routine 06/08/2024 1 1:35 AM SUPPLIER DEVELOPMENT MANAGER Type 2 diabetes mellitus with hyperglycemia, with long-term current use of insulin ([facility]) EGFR Routine 05/01/2024 4:27 AM SUPPLIER DEVELOPMENT MANAGER COLONOSCOPY REPORT Routine 04/04/2024 10 :21 AM [...] Read Routine (OP Routine) 04/16/2023 12:56 PM SUPPLIER DEVELOPMENT MANAGER Encounter for screening mammogram for malignant neoplasm of breast from Last 3 Months or Most Recently Relevant to Health Maintenance Results * (ABNORMAL) POCT hemoglobin A1c (06/08/2024 11:35 AM SUPPLIER DEVELOPMENT MANAGER) Hemoglobin A1C, POC 7.7 4.0 - 5.6 % Comment:None Capillary blood 06/08/2024 1 1:35 AM SUPPLIER DEVELOPMENT MANAGER us Raj Stoddard MD POINT OF CARE TEST ORDERABLES Fi nal Result * (ABNORMAL) POCT glucose (06/08/2024 11:35 AM SUPPLIER DEVELOPMENT MANAGER) Glucose Blood, POC 214 mg/dL Comment:None Blood 06/08/2024 11:3 5 AM SUPPLIER DEVELOPMENT MANAGER us Raj Stoddard MD POINT OF CARE TEST ORDERABLES Fi nal Result * eGFR (05/01/2024 4:27 AM SUPPLIER DEVELOPMENT MANAGER) eGFR 78 >=60 mL/min/1. 73 m2 Comment: Interpretive Data Reference Interval Normal >/= 90 mL/min/1.73m2 Mildly decreased* 60 - 89 mL/min/1.73m2 Mildly to moderately decreased 45 - 59 mL/min/1.73m2 Moderately to severely decreased 30 - 44 mL/min/1.73m2 Severely decreased 15 - 29 mL/min/1.73m2 Kidney Failure < 15 mL/min/1.73m2 *Relative to young adult level Estimated glomerular [...] last reviewed 2021. Blood 05/01/2024 4:27 AM SUPPLIER DEVELOPMENT MANAGER 05/01/2024 5:47 AM SUPPLIER DEVELOPMENT MANAGER Bro Jameson MD LAB BLOOD ORDERABLES Final Resu lt YAMILEX JHA HOLUALOA) 1 Formerly [facility] Department [place] [email or web address] [place] [address] * Colonoscopy Report -[facility] (04/04/2024 10:21 AM [...] fracture and secondary osteoporosis. Patient takes vitamin-D. 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 According to the National Osteoporosis Foundation guidelines, postmenopausal [...] Rebecca Syed M.D. TW: TW Report ID: [id number] Reading Location: [id number] Procedure Note Rebecca Syed MD - 03/23/2024 EXAM DESCRIPTION: DEXA AXIAL SKELETON BONE DENSITY 1 OR MORE SITES REASON FOR STUDY: 74 y/o year old F with given history of: Post menopausal status. History prior fracture and secondary osteoporosis. Patient takes vitamin-D. 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 TW: SHAHEEN Report ID: [id number] Reading Location: [place] [address] us Mer Vazquez NP [facility] DXA PROCEDURES Final R esult * (ABNORMAL) Albumin Creatinine Ratio, Urine (02/14/2024 11:16 AM CDT) Albumin Ur 59.2 mg/L Comment: Interpretive Data No reference range established. Current interpretive data was last revised 2018. Testing performed by: [facility], [address] [place] [address]., [address] Creatinine Ur 187.7 mg/dL YAMILEX JHA (KARIME) Comment: Interpretive Data No reference range established. Current interpretive data was last revised 2018. Testing performed by: [facility], [address] [place] [address]., [address] Albumin Creatinine Ratio, Ur 32(H) 1 - 29 mg/g YAMILEX JHA (KARIME) Comment:Testing performed by : [address] [address] Urine 02/14/2024 11:1 6 AM CDT 02/14/2024 6:30 PM CDT Mer Vazquez NP LAB URINE ORDERABLES Final Result YAMILEX JHA (KARIME) 1 [facility] Department [place] [address] * (ABNORMAL) Lipid panel (02/14/2024 11:16 AM CDT) Cholesterol 138 30 - 199 mg/dL Comment: Interpretive Data Ages < or = 19 years Acceptable: <170 mg/dL Borderline high: 170-199 mg/dL High: >or= 200 mg/dL Ages > or = 20 years Desirable: <200 mg/dL Borderline high: 200-239 mg/dL High: >or= 240 mg/dL Literature References: 1. Expert Panel on Integrated Guidelines for Cardiovascular Health and Risk Reduction in Children and Adolescents. Pediatrics 2011;128:S213 2. NCEP Expert Panel. Circulation 2004;110:227 Current Interpretive Data was last revised on 2018. Testing performed by: [facility], [address] [place] [address]., [address] Triglycerides 175(H) <=149 mg/dL YAMILEX JHA (KARIME) Comment: Interpretive Data Ages < or = 9 years Acceptable: <75 mg/dL Borderline high: 75-99 mg/dL High: >or= 100 mg/dL Ages 10 to 20 years Acceptable: <90 mg/dL Borderline high: 90-129 mg/dL High: >or= 130 mg/dL Ages > or = 20 years Desirable: <150 mg/dL Borderline high: 150-199 mg/dL High: 200-499 mg/dL Very high: >or= 499 mg/dL Literature References: 1. Expert Panel on Integrated Guidelines for Cardiovascular Health and Risk Reduction in Children and Adolescents. Pediatrics 2011;128:S213 2. NCEP Expert Panel. Circulation 2004;110:227 Current Interpretive Data was last revised on 2018. Testing performed by: [facility], [address] [place] [address]., [address] HDL 34(L) >=40 mg/dL YAMILEX JHA (KARIME) Comment: Interpretive Data Ages < or = 19 years Acceptable: >45 mg/dL Borderline low: 40-45 mg/dL Low: <40 mg/dL Ages > or = 20 years Desirable: >or= 60 mg/dL Low: <40 mg/dL Literature References: 1. Expert Panel on Integrated Guidelines for Cardiovascular Health and Risk Reduction in Children and Adolescents. Pediatrics 2011;128:S213 2. NCEP Expert Panel. Circulation 2004;110:227 Current Interpretive Data was last revised on 2018. Testing performed by: [facility], [address] [place] [address]., [address] LDL, calculated 74 <=129 mg/dL YAMILEX JHA (KARIME) Comment: Interpretive Data Ages < or = 19 years Acceptable: <110 mg/dL Borderline high: 110-129 mg/dL High: >or= 130 mg/dL Ages > or = 20 years Optimal: <100 mg/dL Near optimal: 100-129 mg/dL Borderline high: 130-159 mg/dL High: >160 mg/dL Calculated using the Cole LDL-C estimating equation. This equation was implemented on 2024. Prior to this date LDL-C was estimated using the Friedewald equation. Literature References: 1. Expert Panel on Integrated Guidelines for Cardiovascular Health and Risk Reduction in Children and Adolescents. Pediatrics 2011;128:S213 2. NCEP Expert Panel. Circulation 2004;110:227 3. Cole Zaman al. KIESHA Cardiol. 2020 October 05;5(5):540-548. doi: 10.1001/jamacardio.2020.0013 Current Interpretive Data was last revised on 2024. Testing performed by: [address] [address] Non-HDL Cholesterol 104 mg/dL YAMILEX JHA (KARIME) Comment: Interpretive Data Ages < or = 19 years Acceptable: <120 mg/dL Borderline high: 120-144 mg/dL High: >145 mg/dL Ages > or = 20 years When triglycerides are >200 mg/dL, Non-HDL cholesterol is a secondary target of therapy with treatment goals that are 30 mg/dL greater than the LDL cholesterol target. Literature References: 1. Expert Panel on Integrated Guidelines for Cardiovascular Health and Risk Reduction in Children and Adolescents. Pediatrics 2011;128:S213 2. NCEP Expert Panel. Circulation 2004;110:227 Current Interpretive Data was last revised on 2018. Testing performed by: [facility], [address] [place] [address]., [address] Chol/HDL ratio 4 REJI JHA (KARIME) Comment:Testing performed by : [address] [address] Blood 02/14/2024 11:1 6 AM CDT 02/14/2024 6:30 PM CDT Mer Vazquez NP LAB BLOOD ORDERABLES Final Result YAMILEX JHA (KARIME) 1 [facility] Department of Laboratories [place], [place] [id number] * DIABETES EYE EXAM (10/19/2023) SCRIBED DIABETIC DILATED EYE EXAM Normal Historical Provider HEALTH MAINTENANCE Final Result * Screening Mammogram Bilateral W Philipp (04/16/2023 12:56 PM SUPPLIER DEVELOPMENT MANAGER) Anatomical Region Laterality Modality Breast Bilateral Mammography 04/28/2023 2:18 PM SUPPLIER DEVELOPMENT MANAGER Impressions 04/28/2023 2:18 PM SUPPLIER DEVELOPMENT MANAGER There is no mammographic evidence of malignancy. A 1 year screening mammogram is recommended. BI-RADS: 1 - Negative. The patient has been or will be contacted. The patient will be entered into a reminder system with a target due date of 1 year for her next mammogram. Electronically signed by: Jaida Rothman M.D. Narrative 04/28/2023 2:18 PM SUPPLIER DEVELOPMENT MANAGER EXAMINATION: SCREENING MAMMOGRAM BILATERAL W PHILIPP ORDERING HEALTHCARE PROVIDER: MER VAZQUEZ HISTORY: Routine screening mammography. COMPARISON: 11/11/2020, 07/14/2018, 05/13/2015 TECHNIQUE: CC and MLO views of the bilateral breasts were obtained with digital technique using breast tomosynthesis with C view. Computer aided detection was utilized. FINDINGS: DENSITY: There are scattered fibroglandular elements in the bilateral breasts. BREASTS: There are no suspicious masses, suspicious calcifications, or other suspicious findings in either breast. There has been no suspicious interval change. us Mer Vazquez SHEET METAL SUPERVISOR IMG MAMMO PROCEDURES Final Result from Last 3 Months or Most Recently Relevant to Health Maintenance Insurance COMMERCIAL GENERIC MEDICARE LOCAL [facility] SUPPLEMENT MEDICARE LOCAL [facility] SUPPLEMENT Advance Directives For more information, please contact: [phone] Documents on File Type Date Recorded Patient Tour Coordinator Expl anation ADVANCE DIRECTIVE 06/19/2022 6:10 PM * Full Code (Latest Code Status on File) Date Activated Date Inactivated Comments 04/29/2024 9:41 PM 05/01/2024 3:08 PM Care Teams Eyedotter Relationship Specialty Start Date End Date Jad Fisher MD [address] [facility] [place] [address] PCP - General Family Medicine 01/27/22 [place] [id number] [address] Surgeon Orthopedic Surgery 11/26/22
--- OUTSIDE RECORDS SUMMARY | 2024-08-10 10:49 | XMS_ITS | CONTINUITY OF CARE DOCUMENT ---
Author Name taya opalbacilio Address Unknown Organization [facility] Address [address] [place] [address] Phone [phone] Care Team Providers Care Network Professional Name Role Phone Jerrell HARRY, Zachary Unavailable [phone] BEE FRAZIER MD Unavailable [phone] BEE FRAZIER MD Unavailable [phone] PROBLEMS Condition Status Date Provider Notes Cardiology [...] MD Leg pain active Zachary Allan MD ENCOUNTERS Date Type Provider Location Encounter Diag nosis - In-person encounter Office Visit Zachary Allan MD [place] [facility] - In-person encounter Office Visit Zachary Allan MD [place] [facility] Renal artery stenosis - In-person encounter Office Visit Zachary Allan MD [place] [facility] Cardiology examination - In-person encounter Office Visit Zachary Allan MD [place] [facility] - In-person encounter Office Visit Zachary Allan MD [place] [facility] - In-person encounter Office Visit Zachary Allan MD [place] [facility] Cardiology examinationFamily History of CVA or [...] RN respiratory rate E&M 20 /min Clarisa caludio RN pulse rate 80 /min Clarisa Luciano [...] blood pressure, diastolic 72 mm[Hg] Kr isty Norberto blood pressure, systolic 114 mm[Hg] Kri sty Rowland pulse rate 92 /min Yola Rowland oxygen saturation, oximetry 98 % Yola Rowland respiratory rate E&M 19 /min Yola Rowland weight E&M 150 [lb_av] Yola Rowland height E&M 62 [in_i] Yola Rowland Body Mass Index (Ratio) 28.35 kg/m2 Shannan Allan MD oxygen saturation, oximetry 98 % Olenastity Lisa blood pressure, diastolic 84 mm[Hg] Ch astity Lisa blood pressure, systolic 137 mm[Hg] Olena stity Lisa pulse rate 89 /min Chastity Lisa respiratory rate E&M 16 /min Olenastit y Lisa weight E&M 155 [lb_av] [facility]&M 62 [in_i] [facility] Body [facility] Index (Ratio) 27.98 kg/m2 Shannan [...] 0-149 High cholesterol, serum 157 mg/dL [employer] 825-025 8829/05/0 7 calcium, serum 9.6 mg/dL [facility] 8.7-10.3 7 carbon dioxide, venous blood 24 mmol/L [employer] 20-29 7 chloride, serum 103 mmol/L [employer] 96-106 7 sodium, serum 144 mmol/L [employer] [phone]/05/0 7 urea nitrogen/creatinin e ratio, serum 29 [...] Estab. 7 platelet count 195 X10E3/UL [employer] 291-536 3518/05/0 7 red blood cell distribution width 14.3 [...] Policy type / Coverage type Brandin red democrat [place] MED[place] B Medicare [id number] Quantance [id number] ADVANCE DIRECTIVES Name Date DISCUSSED - NO DECISION MADE TREATMENT PLAN Date Name Performer [id number],S, H er updated medication list for this problem includes: Rosuvastatin 40 Mg Tablet (Rosuvastatin) Zachary Allan MD [id number],B,I s very good. No evidence of renal [...] ..... Once a day Zachary Allan MD [id number],C,N o evidence of renal artery stenosis from the renal artery scan. Zachary Allan MD [id number],S,P er PCP H er updated medication list for this problem includes: Tradjenta 5 Mg Tablet (Linagliptin) ..... Once a day Aspirin 81 Mg Tablet,delayed Release (dr/ec) (Aspirin) ..... Once a day Quinapril 5 Mg Tablet (Quinapril) ..... Once a day Ozempic 0.25 Mg Or 0.5 Mg(2 Mg/1.5 Ml) Pen Injector (Semaglutide) ..... Take 0.5 mg subcutaneously once a week Zachary Allan MD [id number],B,T his is better because she had a knee replacement which she is getting used to. Zachary Allan MD [id number],C, H er updated medication list for this problem includes: Rosuvastatin 40 Mg Tablet (Rosuvastatin) Zachary Allan MD [id number],C,Per Dr. Armstrong. Zachary Allan MD [id number],C,Not significa nt. Zachary Allan MD [id number],S,N o indication to intervene. Continue current medications. [...] O btain results of CT scan from [facility] Regla barbara has been having abdominal pain [...] nt :Obtain results of CT scan from [facility] Regla atfarhad has been having abdominal pain and distension that worsens with eating for the past 4-5 months Zachary Allan MD Date Name EKG Carotid Duplex Bilat eral Complete Echo Renal Artery Duplex Complete Echo Renal Artery Duplex PROTHROMBIN TIME WIT H INR LIPID PANEL CBC (INCLUDES DIFF/P LT) BASIC METABOLIC PANE L W/EGFR Renal Angio - [facility] Arterial Duplex Bi-L ower EX HISTORY OF PROCEDURES Procedure Date Procedure Name Provider Procedure Notes S tatus EKG Zachary Allan MD completed EKG Zachary Allan MD completed
--- OUTSIDE RECORDS SUMMARY | 2024-08-10 10:49 | XMS_ITS | Clinical Summary ---
Author Organization [facility] [address] Address [address] [place] [address] Care Team Providers Care Bleach Boiler Puller Name Role Phone Jad Fisher MD Primary Care Provider [phone] Chang Ward MD Unavailable [phone] Allergies Active Allergy Reactions Criticality Noted Date [...] 04/12/2024 Assessment & Plan (04/12/2024 11:22 AM GRINDER SET UP OPERATOR SURFACE): Started on Fosamax. Continue taking vitamin D. [...] surgery. Updated referral and reached out to [facility] orthopedic surgery Dr. Ward, plan for office [...] activity. Hyperlipidemia associated with type 2 diabetes ramnoa jefferson 08/17/2022 Assessment & Plan (02/24/2024 10:55 AM CDT): Continue taking Rosuvastatin. Monitor diet and increase exercise. Reviewed red flags. Assessment & Plan (12/16/2023 10:21 AM CDT): Chronic problem, currently taking Rosuvastatin 40mg. Last lipid panel: 02/19/23 LDL=73, JZ=889. No changes at this time. Assessment & Plan (08/12/2023 11:01 AM GRINDER SET UP OPERATOR SURFACE): Chronic, stable LDL cholesterol goal Continue rosuvastatin Assessment & Plan (05/04/2023 10:39 AM GRINDER SET UP OPERATOR SURFACE): Chronic problem, currently taking Rosuvastatin 40mg. Last lipid panel: 02/19/23 LDL=73, YM=339. No changes at this time. Assessment & Plan (01/19/2023 10:03 AM CDT): Chronic, well controlled Continue Rosuvastatin Assessment & Plan (08/18/2022 10:33 AM CDT): Chronic problem, currently taking Rosuvastatin 40mg. Last lipid panel: 01/30/22 LDL=62, IS=367. No changes at this time. Hypertension associated with stage 2 chronic kidney disease due to type 2 diabetes mellitus 08/17/2022 Assessment & Plan (04/12/2024 11:42 AM GRINDER SET UP OPERATOR SURFACE): Normotensive. Continue taking lisinopril. Red flags reviewed. Assessment & Plan (12/16/2023 10:21 AM CDT): Chronic problem, BP controlled on current lisinopril 40mg daily. No changes at this time. Assessment & Plan (09/13/2023 11:43 AM CDT): Normotensive. Continue lisinopril, clonidine. Will continue monitor. Assessment & Plan (05/04/2023 10:39 AM GRINDER SET UP OPERATOR SURFACE): Chronic problem, BP controlled on current lisinopril 40mg daily. No changes at this time. Assessment & Plan (08/18/2022 10:33 AM CDT): Chronic problem, BP controlled on current quinapril 40mg daily. No changes at this time. Mild cognitive impairment 05/28/2022 Assessment & Plan (05/28/2022 4:07 PM GRINDER SET UP OPERATOR SURFACE): Patient started on donepezil around 01/2022 and [...] barefoot. Assessment & Plan (08/12/2023 11:00 AM GRINDER SET UP OPERATOR SURFACE): Foot care discussed Continue gabapentin Assessment & Plan (05/04/2023 11:00 AM GRINDER SET UP OPERATOR SURFACE): Chronic problem. Currently taking Gabapentin 300mg bid. [...] aspirin starting Wednesday 11/22. Coronary arteriosclerosis in [place] artery 02/06 Overview (09/11/2016): CAD in [place] artery Impairment of balance 02/07/2016 Overview (09/11/2016): [...] UNCNTRLD Assessment & Plan (06/08/2024 12:04 PM GRINDER SET UP OPERATOR SURFACE): Chronic, uncontrolled with a higher A1c Importance [...] placed. Assessment & Plan (08/12/2023 11:00 AM GRINDER SET UP OPERATOR SURFACE): Chronic, stable but not at goal Importance of diet and exercise discussed Continue current regimen with Levemir, Humalog, Ozempic and Farxiga Patient interested in an insulin pump Will get C-peptide, fasting glucose and galen antibody If appropriate, will start process for insulin pump Assessment & Plan (05/04/2023 10:58 AM GRINDER SET UP OPERATOR SURFACE): Chronic problem. A1c improved from 8.0% 01/2023 [...] hours). Assessment & Plan (07/09/2022 4:06 PM GRINDER SET UP OPERATOR SURFACE): Hba1c was Lab Results Component Value Date [...] Send me a message every week, via [employer], to let me know how you are doing with your sugars and for us to look at your sugars on Free[employer]ivalent DATAyle Rafaela Cardiac arrhythmia 01/13/2013 Overview (05/04/2021): History [...] stroke Assessment & Plan (05/28/2022 4:08 PM GRINDER SET UP OPERATOR SURFACE): Continues tight control of BP, statin and [...] Care Team Description 07/14/2024 Telephone [facility] [address] [place] [address] Jad Fisher MD 06/28/2024 Telephone [facility] [address] [place] [address] Raj Stoddard MD [employer] 06/22/2024 11:00 AM GRINDER SET UP OPERATOR SURFACE Office Visit [facility] 6th [place] [address] Syeda Fernandez MD Arthritis of carpometacarpal (CMC) joint of left thumb (Primary Dx); Trigger finger of left thumb; Left carpal tunnel syndrome 06/08/2024 11:15 AM GRINDER SET UP OPERATOR SURFACE Office Visit [facility] [address] [address] Raj Stoddard MD Type 2 diabetes mellitus with hyperglycemia, with long-term current use of insulin (HCC) (Primary Dx) from Last 3 Months Immunizations Immunization Administration Dates Next Due Influenza, [...] aplastic anemia at age 64, was a Sikhism Heart attack Mother 2 Mother Myocardial infa rction; mother had massive [place] at 72 Diabetes type II Other Family [...] often do you attend chur ch or worship services? 1 to 4 times per year 08/20/2022 Do you belong to any clubs o r organizations such as mandaeism groups, unions, fraternal or athletic groups, or [...] staff should administer the PHQ-9) 0 06/08/2024 [facility] of Occupat ional Health - Occupational Stress [...] place to sleep or slept in a custodial (including now)? No 08/20/2022 PHQ-9 Answer Date [...] on file Legal Sex Female 6:13 AM GRINDER SET UP OPERATOR SURFACE Gender Identity Not on file Sexual Orientation Straight 06/08/2024 11 :24 AM GRINDER SET UP OPERATOR SURFACE Obstetrics History Para Term AB IAB SAB Ectopic Multiple Livin g Live Births 1 1 Date Outcome GA Total Labor Labor/2nd/3rd Weight Sex Type Anes PTL Sarina A1 A5 Name Clin Term Last Filed Vital Signs Vital Sign Reading Time Taken Comments Blood Pressure 132/70 06/08/2024 11:34 AM GRINDER SET UP OPERATOR SURFACE Pulse 88 06/08/2024 11:34 AM GRINDER SET UP OPERATOR SURFACE Temperature 36.2 C (97.2 F) 05/01/2024 7:45 AM GRINDER SET UP OPERATOR SURFACE Respiratory Rate 20 06/08/2024 11:34 AM GRINDER SET UP OPERATOR SURFACE Oxygen Saturation 97% 05/01/2024 7:45 AM GRINDER SET UP OPERATOR SURFACE Inhaled Oxygen Concentration - - Weight 76.8 kg (169 lb 6.4 oz) 06/08/2024 11:34 AM GRINDER SET UP OPERATOR SURFACE Height 154.9 cm (5' 1 ) 06/08/2024 11:34 AM GRINDER SET UP OPERATOR SURFACE Body Mass Index 32.01 06/08/2024 11:34 AM GRINDER SET UP OPERATOR SURFACE Plan of Treatment Health Maintenance Due Date [...] 04/04/2024, 02/10/2023 Medical Devices Implanted Type Area Beer Runner Device Identifier Shelf Expiration Date Model / Serial / Lot [employer] Dvr [id number] Crosslock [place] Screw Hole Fix Angle Radius Left 1318-437 - [id number] Implanted:Qty: 1 on 11/26/2022 by Chang Ward MD at [facility] Left: Wrist [employer] [id number] / / [employer] Dvr 2.7mm 18mm 3 Lead Thread Lock Taper Head Radius Distal Volar [id number] - [id number] Implanted:Qty: 1 on 11/26/2022 by Chang Wadr MD at [facility] Left: Wrist [employer] [id number] / / [employer] Dvr 2.7mm 20mm Lock Spine Screw Bone Nonsterile [id number] - [id number] Implanted:Qty: 2 on 11/26/2022 by Chang Ward MD at [facility] Left: Wrist [employer] [id number] / / [employer] 2.7mm 13mm Nonlock Low Profile Radius Distal Screw Bone [id number] - [id number] Implanted:Qty: 1 on 11/26/2022 by Chang Ward MD at [facility] Left: Wrist [employer] [id number] / / [employer] Dvr 2.7mm 14mm Lock Cortical Screw Bone Nonsterile Latex Free - [id number] Implanted:Qty: 2 on 11/26/2022 by Chang Ward MD at [facility] Left: Wrist [employer] [id number] / / [employer] Dvr 2.7mm 13mm Lock 3 Lead Thread Crosslock Taper Head Radius 217 - [id number] Implanted:Qty: 1 on 11/26/2022 by Chang Ward MD at [facility] Left: Wrist [employer] [id number] / / Procedures Procedure Name Priority Date/Time Associated Diagnosis Comments POCT GLUCOSE Routine 06/08/2024 11:35 AM GRINDER SET UP OPERATOR SURFACE Type 2 diabetes mellitus with hyperglycemia, with long-term current use of insulin (HCC) POCT HEMOGLOBIN A1C Routine 06/08/2024 1 1:35 AM GRINDER SET UP OPERATOR SURFACE Type 2 diabetes mellitus with hyperglycemia, with long-term current use of insulin (HCC) EGFR Routine 05/01/2024 4:27 AM GRINDER SET UP OPERATOR SURFACE COLONOSCOPY REPORT Routine 04/04/2024 10 :21 AM [...] Read Routine (OP Routine) 04/16/2023 12:56 PM GRINDER SET UP OPERATOR SURFACE Encounter for screening mammogram for malignant neoplasm of breast from Last 3 Months or Most Recently Relevant to Health Maintenance Results * (ABNORMAL) POCT hemoglobin A1c (06/08/2024 11:35 AM GRINDER SET UP OPERATOR SURFACE) Hemoglobin A1C, POC 7.7 4.0 - 5.6 % Comment:None Capillary blood 06/08/2024 1 1:35 AM GRINDER SET UP OPERATOR SURFACE Raj Stoddard MD POINT OF CARE TEST ORDERABLES Fi nal Result * (ABNORMAL) POCT glucose (06/08/2024 11:35 AM GRINDER SET UP OPERATOR SURFACE) Glucose Blood, POC 214 mg/dL Comment:None Blood 06/08/2024 11:3 5 AM GRINDER SET UP OPERATOR SURFACE Raj Stoddard MD POINT OF CARE TEST ORDERABLES Fi nal Result * eGFR (05/01/2024 4:27 AM GRINDER SET UP OPERATOR SURFACE) eGFR 78 >=60 mL/min/1. 73 m2 Comment: [...] last reviewed 2021. Blood 05/01/2024 4:27 AM GRINDER SET UP OPERATOR SURFACE 05/01/2024 5:47 AM GRINDER SET UP OPERATOR SURFACE Bro Jameson MD LAB BLOOD ORDERABLES Final Resu lt ARIANGPR UWQ (RUBY) 6 [facility] Department [place] [address] * Colonoscopy Report -[facility] (04/04/2024 10:21 AM CDT) [...] fracture and secondary osteoporosis. Patient takes vitamin-D. Beer Runner/Model: kubo financiero SL (S/N [id number]) CLINICAL INFORMATION: Current height: 62 inches Maximum [...] Rebecca Syed M.D. TW: TW Report ID: [id number] Reading Location: [id number] Procedure Note eRbecca Syed MD - 03/23/2024 EXAM DESCRIPTION: DEXA AXIAL SKELETON BONE DENSITY 1 OR MORE SITES REASON FOR STUDY: 74 y/o year old F with given history of: Post menopausal status. History prior fracture and secondary osteoporosis. Patient takes vitamin-D. Beer Runner/Model: [employer] SL (S/N 52021) CLINICAL INFORMATION: Current height: 62 inches Maximum [...] Rebecca Syed M.D. TW: TW Report ID: [id number] Reading Location: [place] [address] Mer Vazquez NP IMG DXA PROCEDURES Final R esult * (ABNORMAL) Albumin Creatinine Ratio, Urine (02/14/2024 11:16 AM CDT) Albumin Ur 59.2 mg/L Comment: Interpretive Data No reference range established. Current interpretive data was last revised 2018. Testing performed by: [address] [address] Creatinine Ur 187.7 mg/dL YAMILEX JHA (KARIME) Comment: Interpretive Data No reference range established. Current interpretive data was last revised 2018. Testing performed by: [address] [address] Albumin Creatinine Ratio, Ur 32(H) 1 - 29 mg/g YAMILEX JHA (KARIME) Comment:Testing performed by : [address] [address] Urine 02/14/2024 11:1 6 AM CDT 02/14/2024 6:30 PM CDT us Mer Vazquez NP LAB URINE ORDERABLES Final Result YAMILEX JHA (KARIME) 1 [facility] Department [place] [address] * (ABNORMAL) Lipid panel (02/14/2024 11:16 AM [...] last revised on 2018. Testing performed by: [address] [address] Triglycerides 175(H) <=149 mg/dL YAMILEX JHA (KARIME) [...] last revised on 2018. Testing performed by: [facility], [address] [place] [address]., [address] HDL 34(L) >=40 mg/dL YAMILEX JHA (KARIME) [...] last revised on 2018. Testing performed by: [address] [address] LDL, calculated 74 <=129 mg/dL YAMILEX JHA [...] last revised on 2024. Testing performed by: [address] [address] Non-HDL Cholesterol 104 mg/dL YAMILEX JHA (KARIME) [...] last revised on 2018. Testing performed by: [address] [address] Chol/HDL ratio 4 REJI Page ABHIJEET (KARIME) Comment:Testing performed by : [facility], [address] [facility], [place]., [address] Blood 02/14/2024 11:1 6 AM CDT 02/14/2024 6:30 PM CDT us Mer Vazquez NP LAB BLOOD ORDERABLES Final Result YAMILEX JHA (RUBY) 1 [facility] Department [place] [address] * DIABETES EYE EXAM (10/19/2023) SCRIBED DIABETIC DILATED EYE EXAM Normal us Historical Provider HEALTH MAINTENANCE Final Result * Screening Mammogram Bilateral W Philipp (04/16/2023 12:56 PM GRINDER SET UP OPERATOR SURFACE) Anatomical Region Laterality Modality Breast Bilateral Mammography 04/28/2023 2:18 PM GRINDER SET UP OPERATOR SURFACE Impressions 04/28/2023 2:18 PM GRINDER SET UP OPERATOR SURFACE There is no mammographic evidence of malignancy. A 1 year screening mammogram is recommended. BI-RADS: 1 - Negative. The patient has been or will be contacted. The patient will be entered into a reminder system with a target due date of 1 year for her next mammogram. Electronically signed by: Jaida Rothman M.D. Narrative 04/28/2023 2:18 PM GRINDER SET UP OPERATOR SURFACE EXAMINATION: SCREENING MAMMOGRAM BILATERAL W PHILIPP ORDERING [...] been no suspicious interval change. us Mer W. Vazquez [facility] IMG MAMMO PROCEDURES Final Result from Last 3 Months or Most Recently Relevant to Health Maintenance Insurance COMMERCIAL GENERIC MEDICARE MEDICARE LOCAL 520 H & W MCR SUPPLEMENT MEDICARE LOCAL [facility] H & W MCR SUPPLEMENT Advance Directives For more information, please contact: [phone] Documents on File Type Date Recorded Patient Live Study Manager Expl anation ADVANCE DIRECTIVE 06/19/2022 6:10 PM * Full Code (Latest Code Status on File) Date Activated Date Inactivated Comments 04/29/2024 9:41 PM 05/01/2024 3:08 PM Care Teams Bleach Boiler Puller Relationship Specialty Start Date End Date Jad Fisher MD [facility] [place] [address] PCP - General Family Medicine 01/27/22 [place] [address] [address] Surgeon Orthopedic Surgery 11/26/22
--- OUTSIDE RECORDS SUMMARY | 2024-08-10 10:49 | XMS_ITS | Clinical Summary ---
Author Organization [employer] Address [address] [place] [address] Care Team Providers Care Anatomic Pathologist Name Role Phone Júnior Puente MD Primary Care Provider [phone] Source Comments [facility],non-owned Affiliates and Associated Physician Practices is amultiple site organization consisting of ambulatory clinics and hospital sitesin [place], [place], [place] and [place]. This disclosure is being madepursuant to the Care Everywhere program and may not contain all information available regarding this patient. Last updated 18.[employer] Allergies No known active allergies Medications * [...] Comments Blood Pressure 118/58 07/23/2020 11:30 AM MORTGAGE BRANCH MANAGER Pulse 74 07/23/2020 11:30 AM MORTGAGE BRANCH MANAGER Temperature 36.5 C (97.7 F) 07/23/2020 10:19 AM MORTGAGE BRANCH MANAGER Respiratory Rate 6 07/23/2020 11:30 AM MORTGAGE BRANCH MANAGER Oxygen Saturation 94% 07/23/2020 11:30 AM MORTGAGE BRANCH MANAGER Inhaled Oxygen Concentration - - Weight 70.8 kg (156 lb) 07/23/2020 8:34 AM MORTGAGE BRANCH MANAGER Height 157.5 cm (5' 2 ) 07/23/2020 8:34 AM MORTGAGE BRANCH MANAGER Body Mass Index 28.53 07/23/2020 8:34 AM MORTGAGE BRANCH MANAGER Plan of Treatment Health Maintenance Due Date Last Done Comments BONE DENSITY TESTING 1950 COLOGUARD (AGES 45-75) - COLON CA SCREENING 1950 COLON MONITORING 1950 COLONOSCOPY - COLON CA SCREENING 1952 CT COLONOGRAPHY - COLON CA SCREENING 1950 Colorectal Cancer Screening 1950 FIT - COLON CA SCREENING 1952 FLEX SIG - COLON CA SCREENING 1950 MAMMOGRAM 1950 MEDICARE AWV 12 MONTHS 1950 HEPATITIS C SCREENING 02/25/1970 [...] Additional history exists COVID-19 VACCINE (2 - season) 2024 07/09/2020 INFLUENZA VACCINE (#1) 2024 [...] PANEL (CALCIUM TOTAL) STAT 07/23/2020 8:14 AM MORTGAGE BRANCH MANAGER Preop examination HEMOGLOBIN A1C Routine 01/12/2013 2:30 AM CDT from Last 3 Months or Most Recently Relevant to Health Maintenance Results * (ABNORMAL) BASIC METABOLIC PANEL (CALCIUM TOTAL) (07/23/2020 8:14 AM MORTGAGE BRANCH MANAGER) BUN 13 7 - 26 mg/dL 07/23/2020 8:48 AM [facility] Creatinine 0.7 0.6 - 1.2 mg/dL 07/23/2020 8:48 AM [facility] Sodium 141 136 - 145 mmol/L 07/23/2020 8:48 AM [facility] Potassium 3.3(L) 3.5 - 4.5 mmol/L 07/23/2020 8:48 AM [facility] Chloride 106 98 - 107 mmol/L 07/23/2020 8:48 AM [facility] CO2 24 22 - 29 mmol/L 07/23/2020 8:48 AM [facility] Glucose 167(H) 70 - 115 mg/dL 07/23/2020 8:48 AM [facility] Calcium 8.5 8.4 - 10.2 mg/dL 07/23/2020 8:48 AM [facility] Anion Gap 14 8 - 18 07/23/2020 8:48 AM [facility] BUN/Creatinine Ratio 19 7 - 23 07/23/2020 8:48 AM [facility] Osmolality Calculated 296 270 - 300 mOsm/kg 07/23/2020 8:48 AM [facility] eGFR >60 >60 mL/min/1.7 3 m2 07/23/2020 8:48 AM [facility] Blood BLOOD SPECIMEN / Unknown Venipuncture / Unknown 07/23/2020 8:14 AM MORTGAGE BRANCH MANAGER 07/23/2020 8:18 AM MORTGAGE BRANCH MANAGER Rod Olivas MD LAB - CHEMISTRY DANICARachael MATTAFLORENTINO [facility] [address] [place] [address], [facility] [phone] * (ABNORMAL) HEMOGLOBIN A1C (01/12/2013 2:30 AM CDT) Hemoglobin A1c 7.1(H) 4.4 - 6.3 % [facility] Estimated Average Glucose 157 mg/dL [facility] Blood specimen (specimen) 01/12/2013 2:30 AM CDT 01/12/2013 2:55 AM CDT Arturo Ernst MD LAB - CHEMISTRY JASON SANCHEZ [facility] [address] [place], [place] [address] [phone] from Last 3 Months or Most Recently Relevant to Health Maintenance Care Teams Anatomic Pathologist Relationship Specialty Start Date End Date Júnior Puente MD [address] [place] [address] PCP - General 03/02/14
--- OUTSIDE RECORDS SUMMARY | 2024-08-10 10:49 | XMS_ITS | Patient Health Summary ---
Author Organization [facility] Cognitive Code Address [address] [place] [address] Care Team Providers Care Post Tensioning Ironworker Helper Name Role Phone Júnior Puente MD Primary Care Provider Note from [facility],non-owned Affiliates and Associated Physician Practices is amultiple site organization consisting of ambulatory clinics and hospital sitesin [place], [place] and [place]. This disclosure is being madepursuant to the Care Everywhere program and may not contain all information available regarding this patient. Last updated 18.[facility] Cognitive Code Allergies No known active allergies Medications * [...] Comments Blood Pressure 118/58 07/23/2020 11:30 AM RAT TRAPPER Pulse 74 07/23/2020 11:30 AM RAT TRAPPER Temperature 36.5 C (97.7 F) 07/23/2020 10:19 AM RAT TRAPPER Respiratory Rate 6 07/23/2020 11:30 AM RAT TRAPPER Oxygen Saturation 94% 07/23/2020 11:30 AM RAT TRAPPER Inhaled Oxygen Concentration - - Weight 70.8 kg (156 lb) 07/23/2020 8:34 AM RAT TRAPPER Height 157.5 cm (5' 2 ) 07/23/2020 8:34 AM RAT TRAPPER Body Mass Index 28.53 07/23/2020 8:34 AM RAT TRAPPER Procedures * IR CAROTID CEREBRAL ANGIOGRAM(Performed 07/23/2020) [...] IR CAROTID CEREBRAL ANGIOGRAM (07/23/2020 10:11 AM RAT TRAPPER) Only the most recent of5 resultswithin the time period is included. Anatomical Region Laterality Modality Head X-Ray Angiograph y 07/23/2020 10:3 8 AM RAT TRAPPER Impressions 07/29/2020 5:11 PM RAT TRAPPER Impression: 1.Proximal left internal carotid artery stenosis of 60% 2.Stable and patent right vertebral artery (V1 segment) stent I, Dr. ROCIO AMEZQUITA M.D. have personally reviewed and interpreted this examination/study. This report was electronically signed by ROCIO AMEZQUITA M.D. on 07/29/2020 5:11 PM . Narrative 07/29/2020 5:11 PM RAT TRAPPER Procedure: Cerebral angiogram 07/23/2020 Comparison study: 2017, 09/15/2017 History: The patient a 70 years -year-old Female withhx ofposterior circulation symptoms s/p R V1 stenting 2017, falls, LICA 78% stenosis,Left vertebral artery origin stenosis/occlusion. Cerebral catheter angiogram to quantify the stenosis. Shirt Operator: Francheska Amezquita [facility] Administrator(s): Umm Olivas Vessels: Ultrasound guided access of right radial artery Right radial artery angiogram Left common carotid angiogram: Cervical and Cerebral Right subclavian artery angiogram: Cervical and Cerebral Anesthesia: Moderate sedation on this adult patient was ordered by the tape sewing machine operator, administered intravenously in my presence, [...] patient evaluation, please review the evaluation in [facility]. For details on monitored clinical parameters during the intra-service sedation time, please review the procedure nurse documentation in [facility]. Procedural detail: The risks, benefits, and alternatives to procedure were discussed in detail with the patient and her family. These included but were not limited to the risk of blood loss, vessel injury, stroke, renal injury, and contrast allergy. The patient was brought to the biplane angiography suite where she underwent prep and drape procedures. Limited ultrasound of the right radial artery demonstrated a patent vessel. A quiroz scale image was documented. The right radial artery was accessed using a micropuncture needle. The needle entry was documented. Following a series of exchanges, a 5 Tajik Slender Glidesheath was placed in the right radial artery. Heparin 3,000 units, verapamil 2.5 mg and nitroglycerin 300 mcg were given through the sheath for vasospasm prophylaxis. A 5 Tajik Obrien 2 catheter was navigated into the [...] normal in course and caliber. The bilateral rigging and controls aircraft mechanic were patent though partially visualized. The left [...] Cerebral catheter angiogram to quantify the stenosis. Shirt Operator: Francheska Amezquita [facility] Administrator(s): Umm Olivas Vessels: Ultrasound guided access of right radial artery Right radial artery angiogram Left common carotid angiogram: Cervical and Cerebral Right subclavian artery angiogram: Cervical and Cerebral Anesthesia: Moderate sedation on this adult patient was ordered by the tape sewing machine operator, administered intravenously in my presence, [...] patient evaluation, please review the evaluation in [facility]. For details on monitored clinical parameters during the intra-service sedation time, please review the procedure nurse documentation in [facility]. Procedural detail: The risks, benefits, and [...] documented. Following aseries of exchanges, a 5 Tajik Slender Glidesheath was placed in the right radial artery. Heparin 3,000 units, verapamil 2.5 mg and pyqejlfowtweo685 mcg were given through the sheath for vasospasm prophylaxis. A 5 Tajik Obrien 2 catheter was navigated into the [...] normal in course and caliber. The bilateral rigging and controls aircraft mechanic were patent though partially visualized. The left [...] - POINT OF CARE (07/23/2020 8:16 AM RAT TRAPPER) Pathologist [facility] Glucose WB/POC 195(H) 70 - 115 mg/dL 07/23/2020 8:17 AM [facility] Specimen Type Venous 07/23/2020 8:17 AM [facility] Blood BLOOD SPECIMEN / Unknown 07/23/2020 8:16 AM RAT TRAPPER 07/23/2020 8:17 AM RAT TRAPPER Rocio Amezquita MD LAB - POINT OF CARE ORDERABLES Performing Organization Address [facility]/State/[facility] Co de Phone Number [facility] [address] [place] [phone], [facility] [phone] * PT-INR [facility] (07/23/2020 8:14 AM RAT TRAPPER) Only the most recent of5 resultswithin the time period is included. Pathologist [facility] PT 12.8 12.1 - 14.8 Seconds 07/23/2020 8:50 AM [facility] INR 1.0 See Comment 07/23/2020 8:50 AM [facility] Comment:The suggested therap eutic range for standard coumadin (warfarin) therapy is an INR of 2.0-3.0. For high-risk patients (Mechanical Mitral Valve Prosthesis, etc.), the suggested prophylactic therapeutic range is an INR of 2.5-3.5. Blood BLOOD SPECIMEN / Unknown Venipuncture / Unknown 07/23/2020 8:14 AM RAT TRAPPER 07/23/2020 8:40 AM RAT TRAPPER Rocio Amezquita MD LAB - COAGULATION OR DERABLES Performing Organization Address City/[facility] Co de Phone Number [facility] [address] [place] [phone], [facility] [phone] * (ABNORMAL) CBC W AUTO DIFFERENTIAL (07/23/2020 8:14 AM RAT TRAPPER) Only the most recent of6 resultswithin the time period is included. WBC 5.7 3.5 - 10.5 10 3/uL 07/23/2020 8:24 AM [facility] RBC 5.46(H) 3.90 - 5.00 10 6/uL 07/23/2020 8:24 AM [facility] Hemoglobin 15.5 12.0 - 15.5 g/dL 07/23/2020 8:24 AM [facility] Hematocrit 49.7(H) 35.0 - 45.0 % 07/23/2020 8:24 AM [facility] MCV 91.0 81.0 - 97.0 fL 07/23/2020 8:24 AM [facility] MCH 28.4 28.0 - 34.0 pg 07/23/2020 8:24 AM [facility] MCHC 31.2(L) 32.0 - 36.0 g/dL 07/23/2020 8:24 AM [facility] Platelet Count 177 150 - 400 10 3/uL 07/23/2020 8:24 AM [facility] RDW-SD 44.5 36.0 - 50.0 fL 07/23/2020 8:24 AM [facility] RDW-CV 13.6 11.2 - 14.8 % 07/23/2020 8:24 AM [facility] MPV 10.4 9.3 - 12.8 fL 07/23/2020 8:24 AM [facility] nRBC Absolute 0.00 0 10 3/uL 07/23/2020 8:24 AM [facility] nRBC Auto 0.0 0 /100 WBC 07/23/2020 8:24 AM [facility] Neutrophils % 67.2 35.0 - 70.0 % 07/23/2020 8:24 AM [facility] Lymphocytes % 23.4 19.7 - 55.1 % 07/23/2020 8:24 AM [facility] Monocytes % 6.5 3.0 - 15.0 % 07/23/2020 8:24 AM [facility] Eosinophils % 1.6 0.0 - 6.0 % 07/23/2020 8:24 AM [facility] Basophil % 0.9 0.0 - 1.5 % 07/23/2020 8:24 AM [facility] Neutrophils Absolute 3.8 1.6 - 7.0 10 3/uL 07/23/2020 8:24 AM [facility] Lymphocyte Absolute 1.3 0.8 - 2.9 10 3/uL 07/23/2020 8:24 AM [facility] Monocytes Absolute 0.37 0.14 - 0.66 10 3/uL 07/23/2020 8:24 AM [facility] Eosinophils Absolute 0.09 0.00 - 0.45 10 3/uL 07/23/2020 8:24 AM [facility] Basophils Absolute 0.05 0.00 - 0.06 10 3/uL 07/23/2020 8:24 AM [facility] Immature Granulocytes % 0.4 0.0 - 1.0 % 07/23/2020 8:24 AM [facility] Blood BLOOD SPECIMEN / Unknown Venipuncture / Unknown 07/23/2020 8:14 AM RAT TRAPPER 07/23/2020 8:18 AM [facility] Rod Olivas MD LAB - HEMATOLOGY ORD ERABLES [facility] [address] [place] [address], [facility] [phone] * (ABNORMAL) BASIC METABOLIC PANEL (CALCIUM TOTAL) (07/23/2020 8:14 AM [facility]) Only the most recent of7 resultswithin the time period is included. BUN 13 7 - 26 mg/dL 07/23/2020 8:48 AM [facility] Creatinine 0.7 0.6 - 1.2 mg/dL 07/23/2020 8:48 AM [facility] Sodium 141 136 - 145 mmol/L 07/23/2020 8:48 AM [facility] Potassium 3.3(L) 3.5 - 4.5 mmol/L 07/23/2020 8:48 AM [facility] Chloride 106 98 - 107 mmol/L 07/23/2020 8:48 AM [facility] CO2 24 22 - 29 mmol/L 07/23/2020 8:48 AM [facility] Glucose 167(H) 70 - 115 mg/dL 07/23/2020 8:48 AM [facility] Calcium 8.5 8.4 - 10.2 mg/dL 07/23/2020 8:48 AM [facility] Anion Gap 14 8 - 18 07/23/2020 8:48 AM [facility] BUN/Creatinine Ratio 19 7 - 23 07/23/2020 8:48 AM [facility] Osmolality Calculated 296 270 - 300 mOsm/kg 07/23/2020 8:48 AM [facility] eGFR >60 >60 mL/min/1.7 3 m2 07/23/2020 8:48 AM [facility] Blood BLOOD SPECIMEN / Unknown Venipuncture / Unknown 07/23/2020 8:14 AM RAT TRAPPER 07/23/2020 8:18 AM [facility] Rod Olivas MD LAB - CHEMISTRY JASON SANCHEZ [facility] Organization Address City/State/ZIP Co de Phone Number [facility] [address] [place] [phone], [facility] [phone] * (ABNORMAL) CBC W/O DIFFERENTIAL (09/15/2017 11:26 AM CDT) Only the most recent of3 resultswithin the time period is included. WBC 5.7 3.5 - 10.5 10 3/uL 09/15/2017 11:56 AM [facility] RBC 4.55 3.90 - 5.00 10 6/uL 09/15/2017 11:56 AM [facility] Hemoglobin 13.8 12.0 - 15.5 g/dL 09/15/2017 11:56 AM [facility] Hematocrit 43.2 35.0 - 45.0 % 09/15/2017 11:56 AM [facility] MCV 94.9 81.0 - 97.0 fL 09/15/2017 11:56 AM [facility] MCH 30.3 28.0 - 34.0 pg 09/15/2017 11:56 AM [facility] MCHC 31.9(L) 32.0 - 36.0 g/dL 09/15/2017 11:56 AM [facility] Platelet Count 172 150 - 400 10 3/uL 09/15/2017 11:56 AM [facility] RDW-SD 48.9 36.0 - 50.0 fL 09/15/2017 11:56 AM [facility] RDW-CV 14.2 11.2 - 14.8 % 09/15/2017 11:56 AM [facility] MPV 10.5 9.3 - 12.8 fL 09/15/2017 11:56 AM [facility] Blood BLOOD SPECIMEN / Unknown Venipuncture / Unknown 09/15/2017 11:26 AM CDT 09/15/2017 11:29 AM CDT Rocio Amezquita MD LAB - HEMATOLOGY ORD ERABLES [address] [phone] * MRI BRAIN WO CONTRAST (03/22/2017 7:38 [...] electronically signed by RAMAN PETERSON M.D. on 03/22/2017 11:24 AM . Narrative 03/22/2017 11:24 [...] of21 resultswithin the time period is included. Glucose, Fingerstick 205(H) 70-115mg/d L mg/dL [facility]) Comment:Shirt Operator: GWEN HUNTER 03/02/2017 8:01 AM CDT Rocio Amezquita MD LAB - CHEMISTRY JASON SANCHEZ [facility] Organization Address City/State/ZIP Co de Phone Number [facility]) * (ABNORMAL) COMPREHENSIVE METABOLIC PANEL (2017 11:41 PM CDT) BUN 23 7 - 26 mg/dL [facility] Creatinine 0.9 0.6 - 1.2 mg/dL [facility] Sodium 139 136 - 145 mmol/L [facility] Potassium 3.8 3.5 - 4.5 mmol/L [facility] Chloride 101 98 - 107 mmol/L [facility] CO2 27 22 - 29 mmol/L [facility] Glucose 196(H) 70 - 115 mg/dL [facility] Calcium 8.3(L) 8.4 - 10.2 mg/dL [facility] Protein Total 6.1 6.0 - 8.3 g/dL [facility] Albumin 3.1(L) 3.4 - 5.0 g/dL [facility] Bilirubin Total 0.6 0.2 - 1.2 mg/dL [facility] Alkaline Phosphatase 79 40 - 150 Units/L [facility] ALT 13 0 - 55 Units/L [facility] AST 12 5 - 34 Units/L [facility] Anion Gap 15 8 - 18 [facility] BUN/Creatinine Ratio 26(H) 7 - 23 [facility] Osmolality Calculated 297 270 - 300 mOsm/kg [facility] Albumin/Globulin Ratio 1.0(L) 1.1 - 2.3 [facility] eGFR >60 >60 mL/min/1.7 3 m2 [facility] Blood specimen (specimen) BLOOD SPECIMEN / Unknown 2017 11:41 PM CDT 2017 11:46 PM CDT Rocio Amezquita MD LAB - CHEMISTRY JASON SANCHEZ Performing Organization Address [facility]/ZIP Co de Phone Number [address] [phone] * PHOSPHORUS BLOOD (2017 11:41 PM CDT) Only the most recent of5 resultswithin the time period is included. Phosphorus 3.6 2.3 - 4.7 mg/dL [facility] Blood specimen (specimen) BLOOD SPECIMEN / Unknown 2017 11:41 PM CDT 2017 11:46 PM CDT Rocio Amezquita MD LAB - CHEMISTRY JASON SANCHEZ Performing Organization Address City/[facility]/ZIP Co de Phone Number [address] [phone] * MAGNESIUM BLOOD (2017 11:41 PM CDT) Only the most recent of5 resultswithin the time period is included. Magnesium 1.9 1.6 - 2.6 mg/dL [facility] Blood specimen (specimen) BLOOD SPECIMEN / Unknown 2017 11:41 PM CDT 2017 11:46 PM CDT Rocio Amezquita MD LAB - CHEMISTRY JASON SANCHEZ [facility] [address] [phone] * IR US GUIDE VASCULAR ACCESS (2017 9:50 AM CDT) Anatomical Region Laterality Modality Other Impressions 03/07/2017 2:51 PM CDT Impression: Success stent-assisting angioplasty of right V1 segment stenosis. This report was electronically signed by ROCIO AMEZQUITA M.D. on 03/07/2017 2:51 PM . Narrative 03/07/2017 2:51 PM CDT Procedure: Cerebral angiogram and Vertebral Artery Origin Stent 03/01/17 Comparison study: none History: The patient a 67 years -year-old Female. Who presents with R vertebral artery origin stenosis . She is here for catheter angiography to evaluate the exact degree of stenosis and for possible stent placement. Shirt Operator: Francheska Amezquita and Alissa Eubanks Vessels: Ultrasound [...] where she underwent prep and drape procedures. Limited ultrasound of the radial artery demonstrated a patent vessel. A quiroz scale image was documented. The right common radial artery was accessed using a micropuncture needle. The needle entry was documented. Following a series of exchanges, a 5 Tajik Obrien 1 catheter was navigated into the aortic [...] the arterial system and replaced by a MPC Envoy guide catheter that was positioned proximal to the right vertebral artery origin. Through this catheter a Transcend Floppy 200cm microwire was inserted and used to cross the stenosis and positioned at the V2/3 junction. Over this wire a Maozhao Integrity balloon-mounted, drug-eluting stent was positioned and inflated to nominal pressure. An angiogram through the existing catheter was then performed. The right femoral artery angiogram was obtained through the sheath. All catheters and sheaths were removed from the arterial system. Hemostasis was achieved using a 6 Tajik Angio-Seal closure device. Hemostasis was immediate at [...] of stenosis and for possible stent placement. Shirt Operator: Francheska Amezquita and Alissa Eubanks Vessels: Ultrasound [...] documented. Following aseries of exchanges, a 5 Tajik Obrien 1 catheter was navigated into theaortic [...] arterial system.Hemostasis was achieved using a 6 Tajik Angio-Seal closure device.Hemostasis was immediate at the [...] with reconstitution via muscular branches in the [id number] The right subclavian artery angiogram reveals 70% [...] IR ORDERABLES * ACT - POCT (IP) [facility] (2017 9:30 AM CDT) Activated Clotting Time 331 sec [facility] Blood specimen (specimen) 2017 9:30 AM CDT Rocio Amezquita MD LAB - POINT OF CARE ORDERABLES [facility] * PTT [facility] (2017 6:55 AM CDT) Only the most recent of2 resultswithin the time period is included. APTT 24.9 23.0 - 38.4 Seconds [facility] Comment:Suggested therapeuti c range for full dose I.V. heparin therapy for venous thromboembolism is 66.0-91.0 seconds. Blood specimen (specimen) BLOOD SPECIMEN / Unknown 2017 6:55 AM CDT 2017 6:58 AM CDT Narrative [facility] - 2017 7:12 AM CDT Is patient on Heparin, Argatroban or Dabigatran?->N Rocio Amezquita MD LAB - COAGULATION OR DERABLES Performing Organization Address City/[facility]/ZIP Co de Phone Number [address] [phone] * VAS CAROTID DUPLEX BILATERAL (12/17/2016 11:30 [...] Sukhjinder Arreaga on 10/09/2015 1:49 PM . I, Dr. RAMAN PETERSON M.D. have personally reviewed and interpreted this examination/study. This report was electronically signed by RAMAN PETERSON M.D. on 10/09/2015 2:01 PM . Narrative 10/09/2015 2:01 [...] the left subclavian artery without significant stenosis. There is mild atherosclerosis of the right common [...] Sukhjinder Arreaga on 10/09/2015 1:49 PM . I, Dr. RAMAN PETERSON M.D. have personally reviewed and interpreted thisexamination/study. This report was electronically signed by RAMAN PETERSON M.D. on 10/09/20152:01 PM . Olaf Valentino MD CT ORDERABLES * (ABNORMAL) CREATININE BLOOD - POCT (IP) [facility] (10/09/2015) Only the most recent of2 resultswithin the time period is included. Creatinine POCT 1.05 0.3 - 1.3 mg/dL [facility] eGFR POCT 56(A) 60 ml/min [facility] 10/09/2015 Olaf Valentino MD LAB - POINT OF CARE ORDERABLES [facility] * MRI ANGIO BRAIN ARTERIAL WO CONT [...] hemodynamically significant stenosis. This report was approved by Gigi Naik M.D. on 03/08/2014 4:09 PM . I, Dr. RAMAN PETERSON M.D. have personally reviewed and interpreted this examination/study. This report was electronically signed by RAMAN PETERSON M.D. on 03/08/2014 4:18 PM . Narrative 03/08/2014 4:18 [...] according to standard protocol. MRA of the whdhbf-ca-Brpuse was performed using a dvcq-vm-ihxfvb technique without contrast. Finally, contrast-enhanced MRA of [...] contrastaccording to standard protocol. MRA of the voplmp-zl-Rabiii was performedusing a ckil-xe-xopdta technique without contrast. Finally, contrast-enhanced MRA of [...] hemodynamically significant stenosis. This report was approved by Gigi Naik M.D. on 03/08/2014 4:[address] RAMAN Blanchard M.D. have personally reviewed and interpreted this examination/study. This report was electronically signed by RAMAN PETERSON M.D. on 03/08/2014 4:18 PM . Narrative 03/08/2014 4:18 [...] according to standard protocol. MRA of the ulgvnq-ji-Xrmrxk was performed using a outj-lz-iisfxn technique without contrast. Finally, contrast-enhanced MRA of [...] contrastaccording to standard protocol. MRA of the huvpiw-nh-Kstqrw was performedusing a qogl-rv-mqfrai technique without contrast. Finally, contrast-enhanced MRA of [...] M.D. on 03/08/20144:18 PM . Historical Provider MD MR ORDERABLES * MRI BRAIN WWO CONTRAST [...] hemodynamically significant stenosis. This report was approved by Gigi Naik M.D. on 03/08/2014 4:[address] RAMAN Blanchard M.D. have personally reviewed and interpreted this examination/study. This report was electronically signed by RAMAN PETERSON M.D. on 03/08/2014 4:18 PM . Narrative 03/08/2014 4:18 [...] according to standard protocol. MRA of the hhyubd-kf-Fhrdby was performed using a nkbl-bn-lohgyw technique without contrast. Finally, contrast-enhanced MRA of [...] contrastaccording to standard protocol. MRA of the jclnpl-gz-Hfwxqd was performedusing a igqb-to-ggakvi technique without contrast. Finally, contrast-enhanced MRA of [...] Gigi Naik M.D. on 03/08/2014 4:09PM . IDr. RAMAN M.D. have personally reviewed and interpreted thisexamination/study. This report was electronically signed by RAMAN PETERSON M.D. on 03/08/20144:18 PM . Historical Provider [facility] * VAS ARTERIAL ANKLE ARM INDEX (10/06/2013 2:44 PM CDT) Anatomical Region Laterality Modality Other Leanne Mondragon APRN-LUMBER BUYER VASCULAR LAB OR DERABLES * (ABNORMAL) CALCIUM IONIZED WHOLE BLOOD (02/05/2013 1:14 AM CDT) Only the most recent of2 resultswithin the time period is included. Ionized Calcium Whole Blood 1.17 MMOL/L [facility] Whole Blood PH 7.38 7.35 - 7.45 [facility] Adjusted Ionized Calcium 1.16(L) 1.19 - 1.34 mmol/L [facility] 02/05/2013 1:14 AM CDT 02/05/2013 1:10 AM CDT Olaf Valentino MD LAB - CHEMISTRY JASON SANCHEZ Performing Organization Address [facility]/ZIP Co de Phone Number [address] [phone] * (ABNORMAL) ANTITHROMBIN III ACTIVITY (02/03/2013 12:12 PM CDT) AT ACT 230(H) 105 - 167 SECONDS [facility] Comment: PERFORMED BY: LILIANA MITCHELL Therapeutic range for Cardiac labor arbitrator is: 200 - 300 seconds line pull ACT < 170 seconds Therapeutic range for EPS lab is: 200 - 240 seconds rebolus at < 160 seconds for procedure line pull ACT < 140 seconds Therapeutic range for CT/Angio Special Procedures is: 200 - 300 seconds line pull ACT < 200 seconds Therapeutic range for Surgery in OR: ACT > 360-999 seconds Patient on Aprotinin ACT > 450-999 seconds 02/03/2013 12:1 2 PM CDT 02/08/2013 12:43 PM CDT Olaf Valentino MD LAB - COAGULATION OR DERABLES Performing Organization Address [facility]/ZIP Co de Phone Number [address] [phone] * (ABNORMAL) URINALYSIS W/MICROSCOPIC NO CULTURE (02/03/2013 12:00 PM CDT) Color UA YELLOW STRW,YELLOW [facility] Clarity UA CLEAR CLEAR [facility] Specific Boley Urine 1.017 1.001 - 1.030 [facility] pH UA <= 5.0 5.0 - 8.0 [facility] Protein UA NEGATIVE <20 mg/dL [facility] Glucose UA NEGATIVE NEGATIVE mg/dL [facility] Ketones NEGATIVE NEGATIVE mg/dL [facility] Bilirubin UA NEGATIVE NEGATIVE mg/dL [facility] Blood UA NEGATIVE NEGATIVE [facility] Nitrite UA NEGATIVE NEGATIVE [facility] Leukocyte Esterase NEGATIVE NEGATIVE [facility] Urobilinogen UA < 2.0 <2.0 mg/dL [facility] RBC Urine < 1 0 - 8 /HPF [facility] WBC Urine 1 0 - 2 /HPF [facility] Squamous Epithelial Cells UA < 1 0 - 1 /HPF [facility] Mucus Urine RARE(A) NONE SEEN /LPF [facility] Urine specimen (specimen) URINE SPECIMEN COLLECTION, CATHETERIZED / Unknown 02/03/2013 12:00 PM CDT 02/03/2013 12:10 PM CDT Olaf Valentino MD LAB - URINALYSIS ORD ERABLES Performing Organization Address City/[facility]/ZIP Co de Phone Number [address] [phone] * CULTURE URINE (02/03/2013 12:00 PM CDT) Culture Urine NO GROWTH OF >100 CFU/ML AFTER 48 HOURS. [facility] Urine specimen (specimen) URINE SPECIMEN COLLECTION, CATHETERIZED / Unknown 02/03/2013 12:00 PM CDT 02/03/2013 12:10 PM CDT Narrative [facility] - 02/05/2013 2:59 PM CDT Specimen Type->Urine Olaf Valentino MD LAB - MICROBIOLOGY O RDERABLES [address] [phone] * TYPE + SCREEN PANEL (02/03/2013 9:05 AM CDT) Interpretation ABO/Rh Patient A POS [facility] Antibody Screen NEGATIVE [facility] Venous blood specimen (specimen) 02/03/2013 9:05 AM CDT 02/03/2013 9:11 AM CDT Olaf Valentino MD LAB - BLOOD BANK ORD ERABLES Performing Organization Address [facility] Co de Phone Number [address] [phone] * EKG 12-LEAD (01/20/2013 7:41 AM CDT) Narrative [facility] RADI[facility] - 01/20/2013 7:41 AM CDT Procedure Note Provider, MD Alexander - 11/12/2017 Heike Tavera MD ECG ORDERABLES Performing Organization Address [facility] de Phone Number [facility] RADIOLOGY * TROPONIN I (01/12/2013 4:46 PM CDT) Only the most recent of4 resultswithin the time period is included. Troponin I < 0.010 <0.032 ng/mL [facility] Comment: NOTE Any condition resulting in myocardial cell [...] to increase after onset of chest pain. Troponin values generally remain elevated for 5-10 days. 01/12/2013 4:46 PM CDT 01/12/2013 4:58 PM CDT Arturo Ernst MD LAB - CHEMISTRY ORDRachael SANCHEZ Performing Organization Address [facility] Co de Phone Number [address] [phone] * CK + CKMB PANEL (01/12/2013 4:46 PM CDT) Only the most recent of4 resultswithin the time period is included. [facility] CK Total 81 30 - 200 Units/L [facility] CK-MB 1.4 0.0 - 6.6 ng/mL [facility] Comment: CKMB Reference Range 6.6 ng/mL or greater = Positive For indeterminate results, additional specimen(s) for CKMB, drawn at least one hour apart, may aid diagnosis. Positive CKMB results should be clinically interpreted in combination with total CK serum level. In patients without cardiac muscle damage, CKMB (ng/mL) is generally <2.5% of total CK enzyme activity (Units/L). Virtually all patients with acute myocardial infarction have CKMB values 6.6 ng/mL or greater for samples drawn at least 8-12 hours after the onset of chest pain. CKMB values generally remain elevated for 2-3 days. 01/12/2013 4:46 PM CDT 01/12/2013 4:58 PM CDT Arturo Ernst MD LAB - CHEMISTRY JASON SANCHEZ Performing Organization Address City/[facility]/ZIP Co de Phone Number [address] [phone] * C-REACTIVE PROTEIN (01/12/2013 3:44 AM CDT) [facility] C-Reactive Protein < 0.5 <or= 0.5 mg/dL [facility] Venous blood specimen (specimen) 01/12/2013 3:44 AM CDT 01/12/2013 4:32 AM CDT Arturo Ernst MD LAB - CHEMISTRY JASON SANCHEZ Performing Organization Address [facility]/ZIP Co de Phone Number [address] [phone] * B-TYPE NATRIURETIC PEPTIDE (01/12/2013 3:44 AM CDT) BNP 77 SEE COMMENT pg/mL [facility] Comment: A decision threshold of 100 pg/mL has been demonstrated to provide the maximal combination of sensitivity, specificity and predictive value for the diagnosis of congestive heart failure (CHF). Virtually all patients with no evidence of CHF have BNP values less than 100 pg/mL. A BNP value greater than 100 pg/mL is consistent with the diagnosis of CHF in the appropriate clinical setting. In a study of 693 patients (male and female) with diagnosed CHF, the following values were determined based on the NYHA functional classification system. NYHA Mean Value % >100pg/mL Functional Class (pg/mL) I 320 58.1 II 432 73.0 III 656 79.0 IV 1635 98.3 01/12/2013 3:44 AM CDT 01/12/2013 4:32 AM CDT Arturo Ernst MD LAB - CHEMISTRY JASON SANCHEZ [address] [phone] * (ABNORMAL) HEMOGLOBIN A1C (01/12/2013 2:30 AM CDT) Pathologist [facility] Hemoglobin A1c 7.1(H) 4.4 - 6.3 % [facility] Estimated Average Glucose 157 mg/dL [facility] Blood specimen (specimen) 01/12/2013 2:30 AM CDT 01/12/2013 2:55 AM CDT Arturo Ernst MD LAB - CHEMISTRY JASON SANCHEZ [address] [phone] * (ABNORMAL) LIPID PROFILE (01/12/2013 2:30 AM CDT) Pathologist [facility] Cholesterol Total 167 <200 mg/dL [facility] HDL 33(L) > OR = 40 mg/dL [facility] Comment: ATP III classification of HDL cholesterol: <40 mg/dL Low; considered a major risk factor >60 mg/dL High; considered a negative risk factor Triglycerides 228(H) <150 mg/dL [facility] Comment: ATP III classification of Triglycerides: < 150 mg/dL Normal triglycerides 150-199 mg/dL Borderline-high triglycerides 200-400 mg/dL High triglycerides > 500 mg/dL Very high triglycerides LDL Calculated 88 0 - 100 mg/dL [facility] Comment: ATP III classification of LDL cholesterol: <100 mg/dL Optimal 100-129 Near optimal/above optimal 130-159 Borderline high 160-189 High >190 Very high Venous blood specimen (specimen) 01/12/2013 2:30 AM CDT 01/12/2013 2:55 AM CDT Arturo Ernst MD LAB - CHEMISTRY ORDE LAURA Performing Organization Address City/[facility]/ZIP Co de Phone Number [address] [phone] * URINALYSIS REFLEX TO MICROSCOPIC NO CULTURE (01/11/2013 6:30 PM CDT) Color UA YELLOW STRW,YELLOW [facility] Clarity UA CLEAR CLEAR [facility] Specific Boley Urine 1.012 1.001 - 1.030 [facility] pH UA 6.5 5.0 - 8.0 [facility] Protein UA NEGATIVE <20 mg/dL [facility] Glucose UA NEGATIVE NEGATIVE mg/dL [facility] Ketones NEGATIVE NEGATIVE mg/dL [facility] Bilirubin UA NEGATIVE NEGATIVE mg/dL [facility] Blood UA NEGATIVE NEGATIVE [facility] Nitrite UA NEGATIVE NEGATIVE [facility] Leukocyte Esterase NEGATIVE NEGATIVE [facility] Urobilinogen UA < 2.0 <2.0 mg/dL [facility] UA Micro Reflex NO [facility] Urine specimen (specimen) URINE SPECIMEN OBTAINED BY CLEAN CATCH PROCEDURE / Unknown 01/11/2013 6:30 PM CDT 01/11/2013 7:04 PM CDT Heike Tavera MD LAB - URINALYSIS ORD ERABLES [facility] [address] [place] [address] * XR CHEST 1VW PORTABLE (01/11/2013 5:19 PM CDT) Anatomical Region Laterality Modality Chest Other Impressions 01/12/2013 7:40 AM CDT Impression: No acute pulmonary process. Report dictated by Gigi Naik MD. This report was approved by Gigi Naik M.D. on 01/12/2013 7:[address] Antwan Blanchard M.D. have personally reviewed and interpreted this examination/study. This report was electronically signed by Antwan Ahuja M.D. on 01/12/2013 7:40 AM . Narrative 01/12/2013 7:40 AM CDT Exam: Portable AP Chest Comparison: None History: Stroke, altered metal status Findings: The lungs are clear. No pleural effusion or pneumothorax is present. The cardiac silhouette and mediastinal contours are normal. 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
--- OUTSIDE RECORDS SUMMARY | 2024-08-10 10:49 | XMS_ITS | Referral Summary ---
Author Organization [facility] Address [address] [place] [address] Care Team Providers Care General House Worker Name Role Phone Júnior Puente MD Primary Care Provider [phone] Source Comments [facility],non-owned Affiliates and Associated Physician Practices is amultiple site organization consisting of ambulatory clinics and hospital sitesin [place], [place] and [place]. This disclosure is being madepursuant to the Care Everywhere program and may not contain all information available regarding this patient. Last updated 18.[facility] Allergies No known active allergies Medications * [...] Comments Blood Pressure 118/58 07/23/2020 11:30 AM SOCIAL WORK THERAPIST Pulse 74 07/23/2020 11:30 AM SOCIAL WORK THERAPIST Temperature 36.5 C (97.7 F) 07/23/2020 10:19 AM SOCIAL WORK THERAPIST Respiratory Rate 6 07/23/2020 11:30 AM SOCIAL WORK THERAPIST Oxygen Saturation 94% 07/23/2020 11:30 AM SOCIAL WORK THERAPIST Inhaled Oxygen Concentration - - Weight 70.8 kg (156 lb) 07/23/2020 8:34 AM SOCIAL WORK THERAPIST Height 157.5 cm (5' 2 ) 07/23/2020 8:34 AM SOCIAL WORK THERAPIST Body Mass Index 28.53 07/23/2020 8:34 AM SOCIAL WORK THERAPIST Functional Status Functional Status Response Date of [...] PANEL (CALCIUM TOTAL) STAT 07/23/2020 8:14 AM SOCIAL WORK THERAPIST Preop examination HEMOGLOBIN A1C Routine 01/12/2013 2:30 AM CDT from Last 3 Months or Most Recently Relevant to Health Maintenance Results * (ABNORMAL) BASIC METABOLIC PANEL (CALCIUM TOTAL) (07/23/2020 8:14 AM SOCIAL WORK THERAPIST) BUN 13 7 - 26 mg/dL 07/23/2020 8:48 AM [facility] Creatinine 0.7 0.6 - 1.2 mg/dL 07/23/2020 8:48 AM [facility] Sodium 141 136 - 145 mmol/L 07/23/2020 8:48 AM [facility] Potassium 3.3(L) 3.5 - 4.5 mmol/L 07/23/2020 8:48 AM [facility] Chloride 106 98 - 107 mmol/L 07/23/2020 8:48 AM [facility] CO2 24 22 - 29 mmol/L 07/23/2020 8:48 AM [facility] Glucose 167(H) 70 - 115 mg/dL 07/23/2020 8:48 AM [facility] Calcium 8.5 8.4 - 10.2 mg/dL 07/23/2020 8:48 AM [facility] Anion Gap 14 8 - 18 07/23/2020 8:48 AM [facility] BUN/Creatinine Ratio 19 7 - 23 07/23/2020 8:48 AM [facility] Osmolality Calculated 296 270 - 300 mOsm/kg 07/23/2020 8:48 AM SOCIAL WORK THERAPIST [facility] eGFR >60 >60 mL/min/1.7 3 m2 07/23/2020 8:48 AM SOCIAL WORK THERAPIST [facility] Blood BLOOD SPECIMEN / Unknown Venipuncture / Unknown 07/23/2020 8:14 AM SOCIAL WORK THERAPIST 07/23/2020 8:18 AM SOCIAL WORK THERAPIST Rod Olivas MD LAB - CHEMISTRY JASON SANCHEZ [facility] [address] [place] [address], [facility] [phone] * (ABNORMAL) HEMOGLOBIN A1C (01/12/2013 2:30 AM CDT) Hemoglobin A1c 7.1(H) 4.4 - 6.3 % [facility] Estimated Average Glucose 157 mg/dL [facility] Blood specimen (specimen) 01/12/2013 2:30 AM CDT 01/12/2013 2:55 AM CDT Arturo Ernst MD LAB - CHEMISTRY JASON SANCHEZ [facility] [address] [place], [place] [id number] [place] [address] from Last 3 Months or Most Recently Relevant to Health Maintenance Care Teams General House Worker Relationship Specialty Start Date End Date Júnior Puente MD [address] [place] [address] PCP - General 03/02/14
== END ==
LOC: EXPBETH 09:45
PROVIDERS: PCP Family Medicine; Visit Provider Family Medicine
DX: M19.042 Primary osteoarthritis, left hand (principal); M65.322 Trigger finger, left index finger
CPT/HCPCS: 73140

== ENCOUNTER 2024-09-06 14:35 | Inpatient (IN) | payer MEDICARE, OTHER, SELFPAY ==
[2024-09-06] VITALS (7 sets, daily range): BP systolic 128–154; BP diastolic 49–76; PULSE 91–104; RESP 16–20; TEMP 36.6–36.9; O2SAT 95–100; BMI 29.9
[2024-09-06 15:41] LABS: Add Urine Microscopic? YES; Appearance Urine Turbid (Clear); Bacteria Urine 4+ /hpf; Bilirubin Urine Negative (Negative); Blood Urine Negative (Negative); Color Urine Yellow (Yellow); Glucose Urine UA Negative (Negative); Ketones Urine Trace mg/dL (Negative); Leukocyte Esterase Ur 3+ LEU/UL (Negative); Mucus Urine Present /lpf; Need Manual Microscopic Reviewed; Nitrate Urine Negative (Negative); Protein Urine 2+ mg/dL (Negative); Specific Grav Ur 1.022 (1.001-1.035); Squamous Epithelial Cell Urine Many /hpf (Few); Urobilinogen Urine 0.2 mg/dL (<2.0); WBC Urine 21-50 /hpf (0-3); pH Urine 5.5 (5.0-9.0)
--- OUTSIDE RECORDS SUMMARY | 2024-09-06 16:02 | XMS_ITS | Continuity of Care Document ---
Author Organization [facility] Address [address] [place] [address] Phone Care Team Providers Care Program Coordinator Executive Education Name Role Phone Dumont OD, Maicol Unavailable Unavailable Procedures Procedure Date CL Replacement - Vistakon Disp W/BW Soft Tax - Medical Eye Exam, New Patient Refraction Advance Directives Directive Yes / No Effective Date File Name No Information Encounters Encounter Description Practice Location Reason(s) For Visit Diagnoses Date Provider Providers Copied on Encounter [facility], [address] [place] [address] [address], [place], [place], [id number], tel:[phone] [facility] No Information Sep-2 8-200 7 Dumont OD Maicol. [address] , [address], [place], [place], [facility], [place]. tel:[phone] [facility], [address] [place] [address] [address], [place], [place], [id number], tel:[phone] [facility] No Information Sep-1 3-200 7 Dumont OD Maicol. [address] , [address], [place], [place], [facility], [place]. tel:[phone] Referring Provider: Bharat Gurrola MD F, [address] [employer] [facility], [place], [address]. tel:[phone] Family History Family Member Type Diagnosis Age [...]
--- OUTSIDE RECORDS SUMMARY | 2024-09-06 16:02 | XMS_ITS | CONTINUITY OF CARE DOCUMENT ---
Author Name taya opalbacilio Address Unknown Organization [facility] Address [address] [place] [address] Phone [phone] Care Team Providers Care Wind Up Worker Name Role Phone Zachary Allan MD Unavailable BEE FRAZIER MD Unavailable [phone] BEE FRAZIER MD Unavailable [phone] PROBLEMS Condition Status Date Provider Notes Cardiology examination active Zachary Allan MD Leg pain active Zachary Allan MD Tobacco [...] In-person encounter Office Visit Zachary Allan MD [facility] - In-person encounter Office Visit Zachary Allan MD [facility] Renal artery stenosis - In-person encounter Office Visit Zachary Allan MD [facility] Cardiology examination - In-person encounter Office Visit Zachary Allan MD [facility] - In-person encounter Office Visit Zachary Allan MD [facility] - In-person encounter Office Visit Zachary Allan MD [facility] Cardiology examinationFamily History of CVA or [...] blood pressure, systolic 114 mm[Hg] [place] pulse rate 92 /min [place] oxygen saturation, oximetry 98 % [place] respiratory rate E&M 19 /min [place] weight E&M 150 [lb_av] [place] height E&M 62 [in_i] [place] Body Mass Index (Ratio) 28.35 kg/m2 Shannan Allan MD oxygen saturation, oximetry 98 % Olenastity Lisa blood pressure, diastolic 84 mm[Hg] Ch astity Lisa blood pressure, systolic 137 mm[Hg] Olena stity Lisa pulse rate 89 /min Chastity Lisa respiratory rate E&M 16 /min Olenastit y Lisa weight E&M 155 [lb_av] [facility] height E&M 62 [in_i] [facility] Body [facility] Index (Ratio) 27.98 kg/m2 [...] 0-149 High cholesterol, serum 157 mg/dL [facility] [phone]/05/0 7 calcium, serum 9.6 mg/dL [facility] 8.7-10.3 7 carbon dioxide, venous blood 24 mmol/L [facility] 20-29 7 chloride, serum 103 mmol/L [facility] 96-106 7 sodium, serum 144 mmol/L [facility] [phone]/05/0 7 urea nitrogen/creatinin e ratio, serum 29 [...] Estab. 7 platelet count 195 X10E3/UL [facility] [phone]/05/0 7 red blood cell distribution width 14.3 [...] democrat [place] MEDICARE [place] B Medicare [id number] [employer] [id number] ADVANCE DIRECTIVES Name Date DISCUSSED - NO DECISION MADE TREATMENT PLAN Date Name Performer [id number],S, H er updated medication list for this problem includes: Rosuvastatin 40 Mg Tablet (Rosuvastatin) Zachary Allan MD [id number],B,I s very good. No evidence of renal [...] ..... Once a day Zachary Allan MD [id number],C,N o evidence of renal artery stenosis from the renal artery scan. Zachary Allan MD [id number],S,P er PCP H er updated medication list for this problem includes: Tradjenta 5 Mg Tablet (Linagliptin) ..... Once a day Aspirin 81 Mg Tablet,delayed Release (dr/ec) (Aspirin) ..... Once a day Quinapril 5 Mg Tablet (Quinapril) ..... Once a day Ozempic 0.25 Mg Or 0.5 Mg(2 Mg/1.5 Ml) Pen Injector (Semaglutide) ..... Take 0.5 mg subcutaneously once a week Zachary Allan MD [id number],B,T his is better because she had a knee replacement which she is getting used to. Zachary Allan MD [id number],C, H er updated medication list for this problem includes: Rosuvastatin 40 Mg Tablet (Rosuvastatin) Zachary Allan MD [id number],C,Per Dr. Armstrong. Zachary Allan MD [id number],C,Not significa nt. Zachary Allan MD [id number],S,N o indication to intervene. Continue current medications. [...] O btain results of CT scan from [facility] Regla barbara has been having abdominal [...] nt :Obtain results of CT scan from [facility] Regla atfarhad has been having abdominal pain and distension that worsens with eating for the past 4-5 months Zachary Allan MD Date Name EKG Carotid Duplex Bilat eral Complete Echo Renal Artery Duplex Complete Echo Renal Artery Duplex PROTHROMBIN TIME WIT H INR LIPID PANEL CBC (INCLUDES DIFF/P LT) BASIC METABOLIC PANE L W/EGFR Renal Angio - [facility] Arterial Duplex Bi-L ower EX HISTORY OF PROCEDURES Procedure Date Procedure Name Provider Procedure Notes S tatus EKG Zachary Allan MD completed EKG Zachary Allan MD completed
--- OUTSIDE RECORDS SUMMARY | 2024-09-06 16:02 | XMS_ITS | Clinical Summary ---
Author Organization [email or web address] Address [address] [place] [address] Care Team Providers Care Die Repairer Stamping Name Role Phone Júnior Puente MD Primary Care Provider [phone] Source Comments [facility],non-owned Affiliates and Associated Physician Practices is amultiple site organization consisting of ambulatory clinics and hospital sitesin [place], [place], [place] and [place]. This disclosure is being madepursuant to the Care Everywhere program and may not contain all information available regarding this patient. Last updated 18.[facility] Allergies No known active allergies Medications * [...] 2 diabetes mellitus without complications 0 01/13/2013 Overview (09/06/2024): IMO 09/06/2024 Stenosis of left carotid artery Family History [...] Comments Blood Pressure 118/58 07/23/2020 11:30 AM AIRPORT DUTY MANAGER Pulse 74 07/23/2020 11:30 AM AIRPORT DUTY MANAGER Temperature 36.5 C (97.7 F) 07/23/2020 10:19 AM AIRPORT DUTY MANAGER Respiratory Rate 6 07/23/2020 11:30 AM AIRPORT DUTY MANAGER Oxygen Saturation 94% 07/23/2020 11:30 AM AIRPORT DUTY MANAGER Inhaled Oxygen Concentration - - Weight 70.8 kg (156 lb) 07/23/2020 8:34 AM AIRPORT DUTY MANAGER Height 157.5 cm (5' 2 ) 07/23/2020 8:34 AM AIRPORT DUTY MANAGER Body Mass Index 28.53 07/23/2020 8:34 AM AIRPORT DUTY MANAGER Plan of Treatment Health Maintenance Due [...] complete this topic MENINGOCOCCAL (Group B) VACCINE SHARED DECISION-MAKING Aged Out No longer eligible based on patient's age to complete this topic MENINGOCOCCAL GROUPS A/C/Y/W VACCINE Aged Out No longer eligible based on patient's age to complete this topic Procedures Procedure Name Priority Date/Time Associated Diagnosis Comments BASIC METABOLIC PANEL (CALCIUM TOTAL) STAT 07/23/2020 8:14 AM AIRPORT DUTY MANAGER Preop examination HEMOGLOBIN A1C Routine 01/12/2013 2:30 AM CDT from Last 3 Months or Most Recently Relevant to Health Maintenance Results * (ABNORMAL) BASIC METABOLIC PANEL (CALCIUM TOTAL) (07/23/2020 8:14 AM AIRPORT DUTY MANAGER) BUN 13 7 - 26 mg/dL 07/23/2020 8:48 AM [facility] Creatinine 0.7 0.6 - 1.2 mg/dL 07/23/2020 8:48 AM [facility] Sodium 141 136 - 145 mmol/L 07/23/2020 8:48 AM [facility] Potassium 3.3(L) 3.5 - 4.5 mmol/L 07/23/2020 8:48 AM [facility] Chloride 106 98 - 107 mmol/L 07/23/2020 8:48 AM [facility] CO2 24 22 - 29 mmol/L 07/23/2020 8:48 AM [facility] Glucose 167(H) 70 - 115 mg/dL 07/23/2020 8:48 AM [facility] Calcium 8.5 8.4 - 10.2 mg/dL 07/23/2020 8:48 AM [facility] Anion Gap 14 8 - 18 07/23/2020 8:48 AM [facility] BUN/Creatinine Ratio 19 7 - 23 07/23/2020 8:48 AM [facility] Osmolality Calculated 296 270 - 300 mOsm/kg 07/23/2020 8:48 AM [facility] eGFR >60 >60 mL/min/1.7 3 m2 07/23/2020 8:48 AM [facility] Blood BLOOD SPECIMEN / Unknown Venipuncture / Unknown 07/23/2020 8:14 AM AIRPORT DUTY MANAGER 07/23/2020 8:18 AM AIRPORT DUTY MANAGER Rod Olivas MD LAB - CHEMISTRY JASON SANCHEZ [facility] [address] [place] [address], [facility] [phone] * (ABNORMAL) HEMOGLOBIN A1C (01/12/2013 2:30 AM CDT) Hemoglobin A1c 7.1(H) 4.4 - 6.3 % [facility] Estimated Average Glucose 157 mg/dL [facility] Blood specimen (specimen) 01/12/2013 2:30 AM CDT 01/12/2013 2:55 AM CDT Arturo Ernst MD LAB - CHEMISTRY JASON SANCHEZ [facility] [address] [place], [place] [address] [phone] from Last 3 Months or Most Recently Relevant to Health Maintenance Care Teams Die Repairer Stamping Relationship Specialty Start Date End Date Júnior Puente MD [address] [place], [place] [id number] PCP - General 03/02/14
--- OUTSIDE RECORDS SUMMARY | 2024-09-06 16:02 | XMS_ITS | Clinical Summary ---
Author Organization [facility] [address] Address [address] [place] [address] Care Team Providers Care Safety Belt Installer Name Role Phone Jad Fisher MD Primary Care Provider [phone] Chang Ward MD Unavailable [phone] Allergies Active Allergy Reactions Criticality Noted Date [...] total) by mouth daily 03/26/20 23 Active insulin glargine 100 unit/mL (3 mL) [...] DAILY 270 tablet 3 08/08/19 25 Active clopidogreL (PLAVIX) 75 mg tablet TAKE 1 TABLET EVERY DAY 90 tablet 3 08/17/19 25 Active clopidogreL (PLAVIX) 75 mg tablet TAKE 1 TABLET EVERY DAY 90 tablet 3 10/28/19 24 2024 Discontinued Active Problems Problem Noted Date Diagnosed Date Troponin level elevated 04/29/2024 COVID 04/29/2024 Age-related osteoporosis wit hout current pathological fracture 04/12/2024 Assessment & Plan (04/12/2024 11:22 AM ASSOCIATE DIRECTOR OF NURSING): Started on Fosamax. Continue taking vitamin D. [...] surgery. Updated referral and reached out to [facility] orthopedic surgery Dr. Ward, plan for office [...] Rosuvastatin 40mg. Last lipid panel: 02/19/23 LDL=73, KM=868. No changes at this time. Assessment & Plan (08/12/2023 11:01 AM ASSOCIATE DIRECTOR OF NURSING): Chronic, stable LDL cholesterol goal Continue rosuvastatin Assessment & Plan (05/04/2023 10:39 AM ASSOCIATE DIRECTOR OF NURSING): Chronic problem, currently taking Rosuvastatin 40mg. Last lipid panel: 02/19/23 LDL=73, LQ=449. No changes at this time. Assessment & Plan (01/19/2023 10:03 AM CDT): Chronic, well controlled Continue Rosuvastatin Assessment & Plan (08/18/2022 10:33 AM CDT): Chronic problem, currently taking Rosuvastatin 40mg. Last lipid panel: 01/30/22 LDL=62, PZ=903. No changes at this time. Hypertension associated with stage 2 chronic kidney disease due to type 2 diabetes mellitus 08/17/2022 Assessment & Plan (04/12/2024 11:42 AM ASSOCIATE DIRECTOR OF NURSING): Normotensive. Continue taking lisinopril. Red flags reviewed. Assessment & Plan (12/16/2023 10:21 AM CDT): Chronic problem, BP controlled on current lisinopril 40mg daily. No changes at this time. Assessment & Plan (09/13/2023 11:43 AM CDT): Normotensive. Continue lisinopril, clonidine. Will continue monitor. Assessment & Plan (05/04/2023 10:39 AM ASSOCIATE DIRECTOR OF NURSING): Chronic problem, BP controlled on current lisinopril 40mg daily. No changes at this time. Assessment & Plan (08/18/2022 10:33 AM CDT): Chronic problem, BP controlled on current quinapril 40mg daily. No changes at this time. Mild cognitive impairment 05/28/2022 Assessment & Plan (05/28/2022 4:07 PM ASSOCIATE DIRECTOR OF NURSING): Patient started on donepezil around 01/2022 and [...] barefoot. Assessment & Plan (08/12/2023 11:00 AM ASSOCIATE DIRECTOR OF NURSING): Foot care discussed Continue gabapentin Assessment & Plan (05/04/2023 11:00 AM ASSOCIATE DIRECTOR OF NURSING): Chronic problem. Currently taking Gabapentin 300mg bid. [...] aspirin starting Wednesday 11/22. Coronary arteriosclerosis in [place] artery 02/06 Overview (09/11/2016): CAD in [place] artery Impairment of balance 02/07/2016 Overview (09/11/2016): [...] UNCNTRLD Assessment & Plan (06/08/2024 12:04 PM ASSOCIATE DIRECTOR OF NURSING): Chronic, uncontrolled with a higher A1c Importance [...] placed. Assessment & Plan (08/12/2023 11:00 AM ASSOCIATE DIRECTOR OF NURSING): Chronic, stable but not at goal Importance of diet and exercise discussed Continue current regimen with Levemir, Humalog, Ozempic and Farxiga Patient interested in an insulin pump Will get C-peptide, fasting glucose and galen antibody If appropriate, will start process for insulin pump Assessment & Plan (05/04/2023 10:58 AM ASSOCIATE DIRECTOR OF NURSING): Chronic problem. A1c improved from 8.0% 01/2023 [...] hours). Assessment & Plan (07/09/2022 4:06 PM ASSOCIATE DIRECTOR OF NURSING): Hba1c was Lab Results Component Value Date [...] Send me a message every week, via [employer], to let me know how you are [...] stroke Assessment & Plan (05/28/2022 4:08 PM ASSOCIATE DIRECTOR OF NURSING): Continues tight control of BP, statin and [...] Team Description 07/14/2024 Telephone [facility] [address] [place] [address] Jad Fisher MD 06/28/2024 Telephone [facility] [address] [place] [phone] Raj Stoddard MD [employer] 06/22/2024 11:00 AM ASSOCIATE DIRECTOR OF NURSING Office Visit [facility] 6th [place] [address] Syeda Fernandez MD Arthritis of carpometacarpal (CMC) joint of left thumb (Primary Dx); Trigger finger of left thumb; Left carpal tunnel syndrome 06/08/2024 11:15 AM ASSOCIATE DIRECTOR OF NURSING Office Visit [facility] [address] [address] Raj Stoddard MD Type 2 [...] aplastic anemia at age 64, was a Muslim Heart attack Mother 2 Mother Myocardial infa rction; mother had massive NC at 72 Diabetes type II Other Family [...] week 08/20/2022 How often [facility] you attend [facility] or [facility] services? 1 to 4 times per year 08/20/2022 Do you belong to any clubs o r organizations such as sabianism groups, unions, fraternal or athletic groups, or [...] should administer the PHQ-9) 0 06/08/2024 [facility] Occupat [facility] - Occupational Stress Questionnaire Answer Date [...] place to sleep or slept in a retirement (including now)? No 08/20/2022 PHQ-9 Answer Date [...] on file Legal Sex Female 6:13 AM ASSOCIATE DIRECTOR OF NURSING Gender Identity Not on file Sexual Orientation Straight 06/08/2024 11 :24 AM ASSOCIATE DIRECTOR OF NURSING Obstetrics History Para Term AB IAB SAB Ectopic Multiple Livin g Live Births 1 1 1 Date Outcome GA Total Labor Labor/2nd/3rd Weight Sex Type Anes PTL Sarina A1 A5 Name Clin Term Last Filed Vital Signs Vital Sign Reading Time Taken Comments Blood Pressure 132/70 06/08/2024 11:34 AM ASSOCIATE DIRECTOR OF NURSING Pulse 88 06/08/2024 11:34 AM ASSOCIATE DIRECTOR OF NURSING Temperature 36.2 C (97.2 F) 05/01/2024 7:45 AM ASSOCIATE DIRECTOR OF NURSING Respiratory Rate 20 06/08/2024 11:34 AM ASSOCIATE DIRECTOR OF NURSING Oxygen Saturation 97% 05/01/2024 7:45 AM ASSOCIATE DIRECTOR OF NURSING Inhaled Oxygen Concentration - - Weight 76.8 kg (169 lb 6.4 oz) 06/08/2024 11:34 AM ASSOCIATE DIRECTOR OF NURSING Height 154.9 cm (5' 1 ) 06/08/2024 11:34 AM ASSOCIATE DIRECTOR OF NURSING Body Mass Index 32.01 06/08/2024 11:34 AM ASSOCIATE DIRECTOR OF NURSING Plan of Treatment Health Maintenance Due Date [...] 04/04/2024, 02/10/2023 Medical Devices Implanted Type Area Corporate Accountant Device Identifier Shelf Expiration Date Model / Serial / Lot [employer] Dvr [id number] Crosslock [place] Screw Hole Fix Angle Radius Left 1318 - [id number] Implanted:Qty: 1 on 11/26/2022 by Chang Ward MD at [facility] Left: Wrist [employer] [id number] / / [employer] Dvr 2.7mm 18mm 3 Lead Thread Lock Taper Head Radius Distal Volar 131 - [id number] Implanted:Qty: 1 on 11/26/2022 by Chang Ward MD at [facility] Left: Wrist [employer] [id number] / / [employer] Dvr 2.7mm 20mm Lock Spine Screw Bone Nonsterile [id number] - [id number] Implanted:Qty: 2 on 11/26/2022 by Chang Ward MD at [facility] Left: Wrist [employer] [id number] / / [employer] 2.7mm 13mm Nonlock Low Profile Radius Distal Screw Bone [id number] - [id number] Implanted:Qty: 1 on 11/26/2022 by Chang Ward MD at [facility] Left: Wrist [employer] [id number] / / [employer] Dvr 2.7mm 14mm Lock Cortical Screw Bone Nonsterile Latex Free [id number] - [id number] Implanted:Qty: 2 on 11/26/2022 by Chang Ward MD at [facility] Left: Wrist [employer] [id number] / / [employer] Dvr 2.7mm 13mm Lock 3 Lead Thread Crosslock Taper Head Radius 783 - [id number] Implanted:Qty: 1 on 11/26/2022 by Chang Ward MD at [facility] Left: Wrist [employer] [id number] / / Procedures Procedure Name Priority Date/Time Associated Diagnosis Comments POCT GLUCOSE Routine 06/08/2024 11:35 AM ASSOCIATE DIRECTOR OF NURSING Type 2 diabetes mellitus with hyperglycemia, with long-term current use of insulin (HCC) POCT HEMOGLOBIN A1C Routine 06/08/2024 1 1:35 AM ASSOCIATE DIRECTOR OF NURSING Type 2 diabetes mellitus with hyperglycemia, with long-term current use of insulin (HCC) EGFR Routine 05/01/2024 4:27 AM ASSOCIATE DIRECTOR OF NURSING COLONOSCOPY REPORT Routine 04/04/2024 10 :21 AM [...] Read Routine (OP Routine) 04/16/2023 12:56 PM ASSOCIATE DIRECTOR OF NURSING Encounter for screening mammogram for malignant neoplasm of breast from Last 3 Months or Most Recently Relevant to Health Maintenance Results * (ABNORMAL) POCT hemoglobin A1c (06/08/2024 11:35 AM ASSOCIATE DIRECTOR OF NURSING) Hemoglobin A1C, POC 7.7 4.0 - 5.6 % Comment:None Capillary blood 06/08/2024 1 1:35 AM ASSOCIATE DIRECTOR OF NURSING Raj Stoddard MD POINT OF CARE TEST ORDERABLES Fi nal Result * (ABNORMAL) POCT glucose (06/08/2024 11:35 AM ASSOCIATE DIRECTOR OF NURSING) Glucose Blood, POC 214 mg/dL Comment:None Blood 06/08/2024 11:3 5 AM ASSOCIATE DIRECTOR OF NURSING Raj Stoddard MD POINT OF CARE TEST ORDERABLES Fi nal Result * eGFR (05/01/2024 4:27 AM ASSOCIATE DIRECTOR OF NURSING) eGFR 78 >=60 mL/min/1. 73 m2 Comment: [...] last reviewed 2021. Blood 05/01/2024 4:27 AM ASSOCIATE DIRECTOR OF NURSING 05/01/2024 5:47 AM ASSOCIATE DIRECTOR OF NURSING us Bro Jameson MD LAB BLOOD ORDERABLES Final Resu lt YAMILEX JHA MELCHER [place] 1 [facility] Department [place] [address] * Colonoscopy Report -[facility] (04/04/2024 10:21 AM CDT) [...] fracture and secondary osteoporosis. Patient takes vitamin-D. Corporate Accountant/Model: [email or web address] SL (S/N [id number]) CLINICAL INFORMATION: Current height: 62 inches Maximum [...] Rebecca Syed M.D. TW: TW Report ID: [id number] Reading Location: [id number] Procedure Note Rebecca Syed MD - 03/23/2024 EXAM DESCRIPTION: DEXA AXIAL SKELETON BONE DENSITY 1 OR MORE SITES REASON FOR STUDY: 74 y/o year old F with given history of: Post menopausal status. History prior fracture and secondary osteoporosis. Patient takes vitamin-D. Corporate Accountant/Model: [employer] SL (S/N [id number]) CLINICAL INFORMATION: Current height: 62 inches Maximum [...] Rebecca Syed M.D. TW: TW Report ID: [id number] Reading Location: [place] [address] Mer Vazquez NP IMG DXA PROCEDURES Final R esult * (ABNORMAL) Albumin Creatinine Ratio, Urine (02/14/2024 11:16 AM CDT) Albumin Ur 59.2 mg/L Comment: Interpretive Data No reference range established. Current interpretive data was last revised 2018. Testing performed by: [address] [address] Creatinine Ur 187.7 mg/dL YAMILEX JHA (KARIME) Comment: Interpretive Data No reference range established. Current interpretive data was last revised 2018. Testing performed by: [address] [address] Albumin Creatinine Ratio, Ur 32(H) 1 - 29 mg/g YAMILEX JHA (KARIME) Comment:Testing performed by : [address] [address] Urine 02/14/2024 11:1 6 AM CDT 02/14/2024 6:30 PM CDT us Mer Vazquez NP LAB URINE ORDERABLES Final Result YAMILEX JHA (KARIME) 1 [facility] Department [place] [address] * (ABNORMAL) Lipid panel (02/14/2024 11:16 AM [...] last revised on 2018. Testing performed by: [address] [address] Triglycerides 175(H) <=149 mg/dL YAMILEX JHA (KARIME) [...] revised on 2018. Testing performed by: [facility], [address] [place] [address]., [address] HDL 34(L) >=40 mg/dL YAMILEX JHA (KARIME) [...] last revised on 2018. Testing performed by: [address] [address] LDL, calculated 74 <=129 mg/dL YMAILEX JHA (KARIME) Comment: Interpretive Data Ages < [...] 3. Cole Forman et al. KIESHA Cardiol. 2019October 05;5(5):540-548. doi: [email or web address] Current Interpretive Data was last revised on 2024. Testing performed by: [address] [address] Non-HDL Cholesterol 104 mg/dL YAMILEX JHA (KARIME) [...] last revised on 2018. Testing performed by: [address] [address] Chol/HDL ratio 4 REJI Page ABHIJEET (KARIME) Comment:Testing performed by : [facility], [id number] [place] [address], [place]., [address] Blood 02/14/2024 11:1 6 AM CDT 02/14/2024 6:30 PM CDT Mer Vazquez NP LAB BLOOD ORDERABLES Final Result YAMILEX ABHIJEET (MELCHER [place]) 1 [facility] Department [place] [address] * DIABETES EYE EXAM (10/19/2023) SCRIBED DIABETIC DILATED EYE EXAM Normal us Historical Provider HEALTH MAINTENANCE Final Result * Screening Mammogram Bilateral W Philipp (04/16/2023 12:56 PM ASSOCIATE DIRECTOR OF NURSING) Anatomical Region Laterality Modality Breast Bilateral Mammography 04/28/2023 2:18 PM ASSOCIATE DIRECTOR OF NURSING Impressions 04/28/2023 2:18 PM ASSOCIATE DIRECTOR OF NURSING There is no mammographic evidence of malignancy. A 1 year screening mammogram is recommended. BI-RADS: 1 - Negative. The patient has been or will be contacted. The patient will be entered into a reminder system with a target due date of 1 year for her next mammogram. Electronically signed by: Jaida Rothman M.D. Narrative 04/28/2023 2:18 PM ASSOCIATE DIRECTOR OF NURSING EXAMINATION: SCREENING MAMMOGRAM BILATERAL W PHILIPP ORDERING [...] has been no suspicious interval change. Mer Vazquez NP IMG MAMMO PROCEDURES Final Result from Last 3 Months or Most Recently Relevant to Health Maintenance Insurance COMMERCIAL GENERIC MEDICARE MEDICARE LOCAL [address] SUPPLEMENT MEDICARE [facility] Address: [place] [id number] [place] [address] LOC[address] Advance Directives For more information, please contact: [phone] Documents on File Type Date Recorded Patient Candle Wrapping Machine Operator Expl anation ADVANCE DIRECTIVE 06/19/2022 6:10 PM * Full Code (Latest Code Status on File) Date Activated Date Inactivated Comments 04/29/2024 9:41 PM 05/01/2024 3:08 PM Care Teams Safety Belt Installer Relationship Specialty Start Date End Date Jad Fisher MD [facility] [place] [address] PCP - General Family Medicine 01/27/22 [place] [address] [address] Surgeon Orthopedic Surgery 11/26/22
--- OUTSIDE RECORDS SUMMARY | 2024-09-06 16:02 | XMS_ITS | Referral Summary ---
Author Organization [facility] [address] Address [address] [place] [address] Care Team Providers Care Business Manager Name Role Phone Jad Fisher MD Primary Care Provider [phone] Chang Ward MD Unavailable Encounters Date Type Department Care Team Description 07/14/2024 Telephone [facility] [address] [place] [address] Jad Fisher MD 06/28/2024 Telephone [facility] Specialists of [address] [address] Raj Stoddard MD Money Mover 06/22/2024 11:00 AM WILDLIFE BIOSTATION RESEARCH ECOLOGIST Office Visit [facility] 6th [place] [address] Syeda Fernandez MD Arthritis of carpometacarpal (CMC) joint of left thumb (Primary Dx); Trigger finger of left thumb; Left carpal tunnel syndrome 06/08/2024 11:15 AM WILDLIFE BIOSTATION RESEARCH ECOLOGIST Office Visit [facility] Specialists of [address] [address] Raj Stoddard MD Type 2 [...] 04/12/2024 Assessment & Plan (04/12/2024 11:22 AM WILDLIFE BIOSTATION RESEARCH ECOLOGIST): Started on Fosamax. Continue taking vitamin D. [...] surgery. Updated referral and reached out to [facility] orthopedic surgery Dr. Ward, plan for office [...] Rosuvastatin 40mg. Last lipid panel: 02/19/23 LDL=73, WE=009. No changes at this time. Assessment & Plan (08/12/2023 11:01 AM WILDLIFE BIOSTATION RESEARCH ECOLOGIST): Chronic, stable LDL cholesterol goal Continue rosuvastatin Assessment & Plan (05/04/2023 10:39 AM WILDLIFE BIOSTATION RESEARCH ECOLOGIST): Chronic problem, currently taking Rosuvastatin 40mg. Last lipid panel: 02/19/23 LDL=73, UF=502. No changes at this time. Assessment & Plan (01/19/2023 10:03 AM CDT): Chronic, well controlled Continue Rosuvastatin Assessment & Plan (08/18/2022 10:33 AM CDT): Chronic problem, currently taking Rosuvastatin 40mg. Last lipid panel: 8/26/22 LDL=62, ED=280. No changes at this time. Hypertension associated with stage 2 chronic kidney disease due to type 2 diabetes mellitus 08/17/2022 Assessment & Plan (04/12/2024 11:42 AM WILDLIFE BIOSTATION RESEARCH ECOLOGIST): Normotensive. Continue taking lisinopril. Red flags reviewed. Assessment & Plan (12/16/2023 10:21 AM CDT): Chronic problem, BP controlled on current lisinopril 40mg daily. No changes at this time. Assessment & Plan (09/13/2023 11:43 AM CDT): Normotensive. Continue lisinopril, clonidine. Will continue monitor. Assessment & Plan (05/04/2023 10:39 AM WILDLIFE BIOSTATION RESEARCH ECOLOGIST): Chronic problem, BP controlled on current lisinopril 40mg daily. No changes at this time. Assessment & Plan (08/18/2022 10:33 AM CDT): Chronic problem, BP controlled on current quinapril 40mg daily. No changes at this time. Mild cognitive impairment 05/28/2022 Assessment & Plan (05/28/2022 4:07 PM WILDLIFE BIOSTATION RESEARCH ECOLOGIST): Patient started on donepezil around 01/2022 and [...] barefoot. Assessment & Plan (08/12/2023 11:00 AM WILDLIFE BIOSTATION RESEARCH ECOLOGIST): Foot care discussed Continue gabapentin Assessment & Plan (05/04/2023 11:00 AM WILDLIFE BIOSTATION RESEARCH ECOLOGIST): Chronic problem. Currently taking Gabapentin 300mg bid. [...] aspirin starting Wednesday 11/22. Coronary arteriosclerosis in samish artery 02/06 Overview (09/11/2016): CAD in samish artery Impairment of balance 02/07/2016 Overview (09/11/2016): [...] UNCNTRLD Assessment & Plan (06/08/2024 12:04 PM WILDLIFE BIOSTATION RESEARCH ECOLOGIST): Chronic, uncontrolled with a higher A1c Importance [...] placed. Assessment & Plan (08/12/2023 11:00 AM WILDLIFE BIOSTATION RESEARCH ECOLOGIST): Chronic, stable but not at goal Importance of diet and exercise discussed Continue current regimen with Levemir, Humalog, Ozempic and Farxiga Patient interested in an insulin pump Will get C-peptide, fasting glucose and galen antibody If appropriate, will start process for insulin pump Assessment & Plan (05/04/2023 10:58 AM WILDLIFE BIOSTATION RESEARCH ECOLOGIST): Chronic problem. A1c improved from 8.0% 01/2023 [...] hours). Assessment & Plan (07/09/2022 4:06 PM WILDLIFE BIOSTATION RESEARCH ECOLOGIST): Hba1c was Lab Results Component Value Date [...] Send me a message every week, via [employer]itro[employer], to let me know how you are [...] stroke Assessment & Plan (05/28/2022 4:08 PM WILDLIFE BIOSTATION RESEARCH ECOLOGIST): Continues tight control of BP, statin and [...] How often do you attend chur or denominational services? 1 to 4 times per year 08/20/2022 Do you belong to any clubs o r organizations such as mosque groups, unions, fraternal or athletic groups, or [...] staff should administer the PHQ-9) 0 06/08/2024 [facility] - Occupational Stress Questionnaire Answer Date [...] money to buy more. Never true 08/21/19 Within the past 12 months, t he [...] place to sleep or slept in a care home (including now)? No 08/20/2022 PHQ-9 Answer Date [...] on file Legal Sex Female 6:13 AM WILDLIFE BIOSTATION RESEARCH ECOLOGIST Gender Identity Not on file Sexual Orientation Straight 06/08/2024 11 :24 AM WILDLIFE BIOSTATION RESEARCH ECOLOGIST Last Filed Vital Signs Vital Sign Reading Time Taken Comments Blood Pressure 132/70 06/08/2024 11:34 AM WILDLIFE BIOSTATION RESEARCH ECOLOGIST Pulse 88 06/08/2024 11:34 AM WILDLIFE BIOSTATION RESEARCH ECOLOGIST Temperature 36.2 C (97.2 F) 05/01/2024 7:45 AM WILDLIFE BIOSTATION RESEARCH ECOLOGIST Respiratory Rate 20 06/08/2024 11:34 AM WILDLIFE BIOSTATION RESEARCH ECOLOGIST Oxygen Saturation 97% 05/01/2024 7:45 AM WILDLIFE BIOSTATION RESEARCH ECOLOGIST Inhaled Oxygen Concentration - - Weight 76.8 kg (169 lb 6.4 oz) 06/08/2024 11:34 AM WILDLIFE BIOSTATION RESEARCH ECOLOGIST Height 154.9 cm (5' 1 ) 06/08/2024 11:34 AM WILDLIFE BIOSTATION RESEARCH ECOLOGIST Body Mass Index 32.01 06/08/2024 11:34 AM WILDLIFE BIOSTATION RESEARCH ECOLOGIST Plan of Treatment Not on file Medical Devices Implanted Type Area Paper Products Inspector Device Identifier Shelf Expiration Date Model / Serial / Lot [employer] Dvr [id number] Crosslock Lares Screw Hole Fix Angle Radius Left 1318-21-050 - [id number] Implanted:Qty: 1 on 11/26/2022 by Chang Ward MD at [facility] Left: Wrist [employer] 1318-21-050 / / [employer] Dvr 2.7mm 18mm 3 Lead Thread Lock Taper Head Radius Distal Volar 13127 - [id number] Implanted:Qty: 1 on 11/26/2022 by Chang Ward MD at [facility] Left: Wrist [employer] 1312-27-118 / / [employer] Dvr 2.7mm 20mm Lock Spine Screw Bone Nonsterile 13108-03-120 - [id number] Implanted:Qty: 2 on 11/26/2022 by Chang Ward MD at [facility] Left: Wrist [employer] 1312--120 / / [employer] 2.7mm 13mm Nonlock Low Profile Radius Distal Screw Bone [id number] - [id number] Implanted:Qty: 1 on 11/26/2022 by Chang Ward MD at [facility] Left: Wrist [employer] [id number] / / [employer] Dvr 2.7mm 14mm Lock Cortical Screw Bone Nonsterile Latex Free 1312-27-114 - [id number] Implanted:Qty: 2 on 11/26/2022 by Chang Ward MD at [facility] Left: Wrist [employer] 1312-27-114 / / [employer] Dvr 2.7mm 13mm Lock 3 Lead Thread Crosslock Taper Head Radius 1312-27-113 - [id number] Implanted:Qty: 1 on 11/26/2022 by Chang Ward MD at [facility] Left: Wrist [employer] 1312-27-113 / / Procedures Procedure Name Priority Date/Time Associated Diagnosis Comments POCT GLUCOSE Routine 06/08/2024 11:35 AM WILDLIFE BIOSTATION RESEARCH ECOLOGIST Type 2 diabetes mellitus with hyperglycemia, with long-term current use of insulin ([facility]) POCT HEMOGLOBIN A1C Routine 06/08/2024 1 1:35 AM WILDLIFE BIOSTATION RESEARCH ECOLOGIST Type 2 diabetes mellitus with hyperglycemia, with long-term current use of insulin ([facility]) EGFR Routine 05/01/2024 4:27 AM WILDLIFE BIOSTATION RESEARCH ECOLOGIST COLONOSCOPY REPORT Routine 04/04/2024 10 :21 AM [...] Read Routine (OP Routine) 04/16/2023 12:56 PM WILDLIFE BIOSTATION RESEARCH ECOLOGIST Encounter for screening mammogram for malignant neoplasm of breast from Last 3 Months or Most Recently Relevant to Health Maintenance Results * (ABNORMAL) POCT hemoglobin A1c (06/08/2024 11:35 AM WILDLIFE BIOSTATION RESEARCH ECOLOGIST) Hemoglobin A1C, POC 7.7 4.0 - 5.6 % Comment:None Capillary blood 06/08/2024 1 1:35 AM WILDLIFE BIOSTATION RESEARCH ECOLOGIST us Raj Stoddard MD POINT OF CARE TEST ORDERABLES Fi nal Result * (ABNORMAL) POCT glucose (06/08/2024 11:35 AM WILDLIFE BIOSTATION RESEARCH ECOLOGIST) Glucose Blood, POC 214 mg/dL Comment:None Blood 06/08/2024 11:3 5 AM WILDLIFE BIOSTATION RESEARCH ECOLOGIST us Raj Stoddard MD POINT OF CARE TEST ORDERABLES Fi nal Result * eGFR (05/01/2024 4:27 AM WILDLIFE BIOSTATION RESEARCH ECOLOGIST) eGFR 78 >=60 mL/min/1. 73 m2 Comment: [...] last reviewed 2021. Blood 05/01/2024 4:27 AM WILDLIFE BIOSTATION RESEARCH ECOLOGIST 05/01/2024 5:47 AM WILDLIFE BIOSTATION RESEARCH ECOLOGIST Bro Jameson MD LAB BLOOD ORDERABLES Final Resu lt YAMILEX JHA NEMOURS 1 [facility] Department [place] [address] * Colonoscopy Report -[facility] (04/04/2024 10:21 AM CDT) [...] fracture and secondary osteoporosis. Patient takes vitamin-D. Paper Products Inspector/Model: [employer] Crowd SL (S/N [id number]) CLINICAL INFORMATION: Current height: 62 inches Maximum [...] Rebecca Syed M.D. TW: TW Report ID: [id number] Reading Location: [id number] Procedure Note Rebecca Syed MD - 03/23/2024 EXAM DESCRIPTION: DEXA AXIAL SKELETON BONE DENSITY 1 OR MORE SITES REASON FOR STUDY: 74 y/o year old F with given history of: Post menopausal status. History prior fracture and secondary osteoporosis. Patient takes vitamin-D. Paper Products Inspector/Model: [employer] SL (S/N [id number]) CLINICAL INFORMATION: Current height: 62 inches Maximum [...] Rebecca Syed M.D. TW: SHAHEEN Report ID: [id number] Reading Location: [place] [address] Mer Simpson NP IMG DXA PROCEDURES Final R esult * (ABNORMAL) Albumin Creatinine Ratio, Urine (02/14/2024 11:16 AM CDT) Albumin Ur 59.2 mg/L Comment: Interpretive Data No reference range established. Current interpretive data was last revised 2018. Testing performed by: [facility], [address] [place]., [address] Creatinine Ur 187.7 mg/dL YAMILEX JHA (KARIME) Comment: Interpretive Data No reference range established. Current interpretive data was last revised 2018. Testing performed by: [facility], [address] [place] [address]., [id number] Albumin Creatinine Ratio, Ur 32(H) 1 - 29 mg/g YAMILEX JHA (KARIME) Comment:Testing performed by : [facility], [address] [place] [address]., [id number] Urine 02/14/2024 11:1 6 AM CDT 02/14/2024 6:30 PM CDT Mer Simpson NP LAB URINE ORDERABLES Final Result YAMILEX JHA (KARIME) 1 [facility] Department [place] [address] * (ABNORMAL) Lipid panel (02/14/2024 11:16 AM [...] on 2018. Testing performed by: [facility], [address] [place] [address]., [address] Triglycerides 175(H) <=149 mg/dL YAMILEX JHA (KARIME) [...] on 2018. Testing performed by: [facility], [address] [place] [address]., [address] HDL 34(L) >=40 mg/dL YAMILEX JHA (KARIME) [...] on 2018. Testing performed by: [facility], [address] [place] [address]., [address] LDL, calculated 74 <=129 mg/dL YAMILEX JHA [...] last revised on 2024. Testing performed by: [facility], [address] [place] [address]., [address] Non-HDL Cholesterol 104 mg/dL YAMILEX JHA (KARIME) [...] on 2018. Testing performed by: [facility], [address] [place] [address]., [address] Chol/HDL ratio 4 REJI JHA (KARIME) Comment:Testing performed by : [facility], [address] [place] [address]., [address] Blood 02/14/2024 11:1 6 AM CDT 02/14/2024 6:30 PM CDT Mer Simpson NP LAB BLOOD ORDERABLES Final Result YAMILEX JHA (KARIME) 1 [facility] Department [place] [address] * DIABETES EYE EXAM (10/19/2023) SCRIBED DIABETIC DILATED EYE EXAM Normal Historical Provider HEALTH MAINTENANCE Final Result * Screening Mammogram Bilateral W Philipp (04/16/2023 12:56 PM WILDLIFE BIOSTATION RESEARCH ECOLOGIST) Anatomical Region Laterality Modality Breast Bilateral Mammography 04/28/2023 2:18 PM WILDLIFE BIOSTATION RESEARCH ECOLOGIST Impressions 04/28/2023 2:18 PM WILDLIFE BIOSTATION RESEARCH ECOLOGIST There is no mammographic evidence of malignancy. A 1 year screening mammogram is recommended. BI-RADS: 1 - Negative. The patient has been or will be contacted. The patient will be entered into a reminder system with a target due date of 1 year for her next mammogram. Electronically signed by: Jaida Rothman M.D. Narrative 04/28/2023 2:18 PM WILDLIFE BIOSTATION RESEARCH ECOLOGIST EXAMINATION: SCREENING MAMMOGRAM BILATERAL W PHILIPP ORDERING HEALTHCARE PROVIDER: MER SIMPSON HISTORY: Routine screening mammography. COMPARISON: 11/11/2020, 07/14/2018, [...] been no suspicious interval change. Mer Simpson DESKTOP SUPPORT TECHNICIAN IMG MAMMO PROCEDURES Final Result from Last 3 Months or Most Recently Relevant to Health Maintenance Insurance COMMERCIAL GENERIC MEDICARE LOCAL [facility] H & W MCR SUPPLEMENT MEDICARE LOCAL [facility] H & W MCR SUPPLEMENT Advance Directives For more information, please contact: [phone] Documents on File Type Date Recorded Patient Employment Clerk Expl hien ADVANCE DIRECTIVE 06/19/2022 6:10 PM * Full Code (Latest Code Status on File) Date Activated Date Inactivated Comments 04/29/2024 9:41 PM 05/01/2024 3:08 PM Care Teams Business Manager Relationship Specialty Start Date End Date Jad Fisher MD [address] [place] [address] PCP - General Family Medicine 01/27/22 [place] [id number] [address] Surgeon Orthopedic Surgery 11/26/22
[2024-09-06 16:32] LABS: Toxigenic C. Diff POSITIVE (NEGATIVE)
[2024-09-06 16:48] LABS: Basophils Percent Auto 0.3 % (0.2-1.2); Eosinophils Absolute Auto 0.1 K/mm3 (0-0.3); Eosinophils Percent Auto 1.1 % (0-4.4); Hematocrit 46.6 % (37.0-47.0); Hemoglobin 15.7 g/dL (12.0-15.0); Immature Granulocyte Absolute 0.03 K/mm3 (0.00-0.031); Immature Granulocyte Percent A 0.3 % (0-0.5); Lymphocytes Absolute Auto 1.97 K/mm3 (0.9-3.2); Lymphocytes Percent Auto 18.6 % (18.3-44.2); Mean Corpuscular HGB Conc 33.7 g/dl (32-36); Mean Corpuscular Hemoglobin 30.2 pg (26-34); Mean Corpuscular Volume 89.6 fl (80-100); Mean Platelet Volume 9.7 fl (7.4-10.4); Monocytes Absolute Auto 0.6 K/mm3 (0.1-0.6); Monocytes Percent Auto 5.5 % (2.6-8.5); Neutrophils Absolute Auto 7.9 K/mm3 (1.3-6.7); Neutrophils Percent Auto 74.2 % (45.5-73.1); Platelet Count Result 219 k/mm3 (150-375); Red Cell Distribution Width 13.8 % (11.5-14.5); White Blood Count 10.6 K/mm3 (4.5-10.0)
[2024-09-06 16:57] LABS: Alanine Aminotransferase 20 U/L (6-35); Albumin Level 4.5 g/dL (3.5-5.1); Alkaline Phosphatase 81 U/L (38-126); Anion Gap 15 mmol/L (4-12); Aspartate Amino Transferase 21 U/L (14-36); Bilirubin,Total 0.8 mg/dL (0.2-1.3); Blood Urea Nitrogen 24 mg/dL (7-17); Calcium 9.2 mg/dL (8.4-10.2); Carbon Dioxide 16 mmol/L (22-30); Chloride 106 mmol/L (98-107); Estimated CRCL calculation 49 ml/min; Estimated Glomerular Filt Rate > 60; Glucose 205 mg/dL (65-110); Lipase 141 U/L (23-300); Potassium 3.6 mmol/L (3.4-5.0); Sodium 137 mmol/L (137-145)
--- OUTSIDE RECORDS SUMMARY | 2024-09-06 17:09 | XMS_ITS | Continuity of Care Document ---
Author Organization [facility] Address [address] [place] [address] Phone Care Team Providers Care Security Alarm Technician Name Role Phone Dumont OD, Maicol Unavailable Unavailable Procedures Procedure Date CL Replacement - Vistakon Disp W/BW Soft Tax - Medical Eye Exam, New Patient Refraction Advance Directives Directive Yes / No Effective Date File Name No Information Encounters Encounter Description Practice Location Reason(s) For Visit Diagnoses Date Provider Providers Copied on Encounter [facility], [address] [place] [address] [address], [place], [place], [id number], tel:[phone] [facility] No Information Sep-2 8-200 7 Dumont OD Maicol. [address] [facility] , [address], [place], [place], [facility], [place]. tel:[phone] [facility], [address] [place] [address] [address], [place], [place], [id number], tel:[phone] [facility] No Information Sep-1 3-200 7 Dumont OD Maicol. [address] [facility] , [address], [place], [place], [facility], [place]. tel:[phone] Referring Provider: Bharat Gurrola MD F, [address] [facility], [place], [address]. tel:[phone] Family History Family Member Type Diagnosis Age At Onset No Information Payers Payer name Insurance type Covered green party ID Authoriza tion(s) No Information Social History [...]
--- OUTSIDE RECORDS SUMMARY | 2024-09-06 17:09 | XMS_ITS | Clinical Summary ---
Author Organization [facility] [address] Address [address] [place] [address] Care Team Providers Care Vocational Training Teacher Name Role Phone Jad Fisher MD Primary Care Provider [phone] Chang Ward MD Unavailable [phone] Allergies Active Allergy Reactions Criticality Noted Date [...] 04/12/2024 Assessment & Plan (04/12/2024 11:22 AM COSMETIC SALES ADVISOR): Started on Fosamax. Continue taking vitamin D. [...] surgery. Updated referral and reached out to [facility] orthopedic surgery Dr. Ward, plan for [...] Rosuvastatin 40mg. Last lipid panel: 02/19/23 LDL=73, QB=172. No changes at this time. Assessment & Plan (08/12/2023 11:01 AM COSMETIC SALES ADVISOR): Chronic, stable LDL cholesterol goal Continue rosuvastatin Assessment & Plan (05/04/2023 10:39 AM COSMETIC SALES ADVISOR): Chronic problem, currently taking Rosuvastatin 40mg. Last lipid panel: 02/19/23 LDL=73, QO=583. No changes at this time. Assessment & Plan (01/19/2023 10:03 AM CDT): Chronic, well controlled Continue Rosuvastatin Assessment & Plan (08/18/2022 10:33 AM CDT): Chronic problem, currently taking Rosuvastatin 40mg. Last lipid panel: 01/30/22 LDL=62, PC=280. No changes at this time. Hypertension associated with stage 2 chronic kidney disease due to type 2 diabetes mellitus 08/17/2022 Assessment & Plan (04/12/2024 11:42 AM COSMETIC SALES ADVISOR): Normotensive. Continue taking lisinopril. Red flags reviewed. Assessment & Plan (12/16/2023 10:21 AM CDT): Chronic problem, BP controlled on current lisinopril 40mg daily. No changes at this time. Assessment & Plan (09/13/2023 11:43 AM CDT): Normotensive. Continue lisinopril, clonidine. Will continue monitor. Assessment & Plan (05/04/2023 10:39 AM COSMETIC SALES ADVISOR): Chronic problem, BP controlled on current lisinopril 40mg daily. No changes at this time. Assessment & Plan (08/18/2022 10:33 AM CDT): Chronic problem, BP controlled on current quinapril 40mg daily. No changes at this time. Mild cognitive impairment 05/28/2022 Assessment & Plan (05/28/2022 4:07 PM COSMETIC SALES ADVISOR): Patient started on donepezil around 01/2022 and [...] barefoot. Assessment & Plan (08/12/2023 11:00 AM COSMETIC SALES ADVISOR): Foot care discussed Continue gabapentin Assessment & Plan (05/04/2023 11:00 AM COSMETIC SALES ADVISOR): Chronic problem. Currently taking Gabapentin 300mg bid. [...] aspirin starting Wednesday 11/22. Coronary arteriosclerosis in [place] artery 02/06 Overview (09/11/2016): CAD in [place] artery Impairment of balance 02/07/2016 Overview (09/11/2016): [...] UNCNTRLD Assessment & Plan (06/08/2024 12:04 PM COSMETIC SALES ADVISOR): Chronic, uncontrolled with a higher A1c Importance [...] placed. Assessment & Plan (08/12/2023 11:00 AM COSMETIC SALES ADVISOR): Chronic, stable but not at goal Importance of diet and exercise discussed Continue current regimen with Levemir, Humalog, Ozempic and Farxiga Patient interested in an insulin pump Will get C-peptide, fasting glucose and galen antibody If appropriate, will start process for insulin pump Assessment & Plan (05/04/2023 10:58 AM COSMETIC SALES ADVISOR): Chronic problem. A1c improved from 8.0% 01/2023 [...] hours). Assessment & Plan (07/09/2022 4:06 PM COSMETIC SALES ADVISOR): Hba1c was Lab Results Component Value Date [...] Send me a message every week, via [employer], to let me know how you are [...] stroke Assessment & Plan (05/28/2022 4:08 PM COSMETIC SALES ADVISOR): Continues tight control of BP, statin and [...] Team Description 07/14/2024 Telephone [facility] [address] [place] [address] Jad Fisher MD 06/28/2024 Telephone [facility] [address] [place] [address] Raj Stoddard MD [employer] 06/22/2024 11:00 AM COSMETIC SALES ADVISOR Office Visit [facility] 6th [place] [address] Syeda Fernandez MD Arthritis of carpometacarpal (CMC) joint of left thumb (Primary Dx); Trigger finger of left thumb; Left carpal tunnel syndrome 06/08/2024 11:15 AM COSMETIC SALES ADVISOR Office Visit [facility] [address] [address] Raj Stoddard MD Type 2 [...] aplastic anemia at age 64, was a Church Heart attack Mother 2 Mother Myocardial infa rction; mother had massive MN at 72 Diabetes type II Other Family [...] week 08/20/2022 How often do you attend formerly [facility] or hindu services? 1 to 4 times per year 08/20/2022 Do you belong to any clubs o r organizations such as restoration groups, unions, fraternal or athletic groups, or [...] should administer the PHQ-9) 0 06/08/2024 [facility] - Occupational Stress Questionnaire Answer Date Recorded [...] place to sleep or slept in a fdc (including now)? No 08/20/2022 PHQ-9 Answer Date [...] on file Legal Sex Female 6:13 AM COSMETIC SALES ADVISOR Gender Identity Not on file Sexual Orientation Straight 06/08/2024 11 :24 AM COSMETIC SALES ADVISOR Obstetrics History Para Term AB IAB SAB Ectopic Multiple Livin g Live Births 1 1 1 Date Outcome GA Total Labor Labor/2nd/3rd Weight Sex Type Anes PTL Sarina A1 A5 Name Clin Term Last Filed Vital Signs Vital Sign Reading Time Taken Comments Blood Pressure 132/70 06/08/2024 11:34 AM COSMETIC SALES ADVISOR Pulse 88 06/08/2024 11:34 AM COSMETIC SALES ADVISOR Temperature 36.2 C (97.2 F) 05/01/2024 7:45 AM COSMETIC SALES ADVISOR Respiratory Rate 20 06/08/2024 11:34 AM COSMETIC SALES ADVISOR Oxygen Saturation 97% 05/01/2024 7:45 AM COSMETIC SALES ADVISOR Inhaled Oxygen Concentration - - Weight 76.8 kg (169 lb 6.4 oz) 06/08/2024 11:34 AM COSMETIC SALES ADVISOR Height 154.9 cm (5' 1 ) 06/08/2024 11:34 AM COSMETIC SALES ADVISOR Body Mass Index 32.01 06/08/2024 11:34 AM COSMETIC SALES ADVISOR Plan of Treatment Health Maintenance Due Date [...] 04/04/2024, 02/10/2023 Medical Devices Implanted Type Area Student Activities Director Device Identifier Shelf Expiration Date Model / Serial / Lot [employer] Dvr [id number] Crosslock [place] Screw Hole Fix Angle Radius Left 1318 - [id number] Implanted:Qty: 1 on 11/26/2022 by Chang Ward MD at [facility] Left: Wrist [employer] [id number] / / [employer] Dvr 2.7mm 18mm 3 Lead Thread Lock Taper Head Radius Distal Volar 131 - [id number] Implanted:Qty: 1 on 11/26/2022 by Chang Ward MD at [facility] Left: Wrist [employer] [id number] / / [employer] Dvr 2.7mm 20mm Lock Spine Screw Bone Nonsterile [address] - [id number] Implanted:Qty: 2 on 11/26/2022 by Chang Ward MD at [facility] Left: Wrist [employer] [address] / / [employer] 2.7mm 13mm Nonlock Low Profile Radius Distal Screw Bone [id number] - [id number] Implanted:Qty: 1 on 11/26/2022 by Chang Ward MD at [facility] Left: Wrist [employer] [id number] / / [employer] Dvr 2.7mm 14mm Lock Cortical Screw Bone Nonsterile Latex Free [id number] - [id number] Implanted:Qty: 2 on 11/26/2022 by Chang Ward MD at [facility] Left: Wrist [employer] [id number] / / [employer] Dvr 2.7mm 13mm Lock 3 Lead Thread Crosslock Taper Head Radius 001 - [id number] Implanted:Qty: 1 on 11/26/2022 by Chang Ward MD at [facility] Left: Wrist [employer] [id number] / / Procedures Procedure Name Priority Date/Time Associated Diagnosis Comments POCT GLUCOSE Routine 06/08/2024 11:35 AM COSMETIC SALES ADVISOR Type 2 diabetes mellitus with hyperglycemia, with long-term current use of insulin (HCC) POCT HEMOGLOBIN A1C Routine 06/08/2024 1 1:35 AM COSMETIC SALES ADVISOR Type 2 diabetes mellitus with hyperglycemia, with long-term current use of insulin (HCC) EGFR Routine 05/01/2024 4:27 AM COSMETIC SALES ADVISOR COLONOSCOPY REPORT Routine 04/04/2024 10 :21 AM [...] Read Routine (OP Routine) 04/16/2023 12:56 PM COSMETIC SALES ADVISOR Encounter for screening mammogram for malignant neoplasm of breast from Last 3 Months or Most Recently Relevant to Health Maintenance Results * (ABNORMAL) POCT hemoglobin A1c (06/08/2024 11:35 AM COSMETIC SALES ADVISOR) Hemoglobin A1C, POC 7.7 4.0 - 5.6 % Comment:None Capillary blood 06/08/2024 1 1:35 AM COSMETIC SALES ADVISOR Raj Stoddard MD POINT OF CARE TEST ORDERABLES Fi nal Result * (ABNORMAL) POCT glucose (06/08/2024 11:35 AM COSMETIC SALES ADVISOR) Glucose Blood, POC 214 mg/dL Comment:None Blood 06/08/2024 11:3 5 AM COSMETIC SALES ADVISOR Raj Stoddard MD POINT OF CARE TEST ORDERABLES Fi nal Result * eGFR (05/01/2024 4:27 AM COSMETIC SALES ADVISOR) eGFR 78 >=60 mL/min/1. 73 m2 Comment: [...] last reviewed 2021. Blood 05/01/2024 4:27 AM COSMETIC SALES ADVISOR 05/01/2024 5:47 AM COSMETIC SALES ADVISOR us Bro Jameson MD LAB BLOOD ORDERABLES Final Resu lt YAMILEX JHA MELDRIM 1 [facility] Department [place] [address] * Colonoscopy Report -[facility] (04/04/2024 10:21 AM [...] fracture and secondary osteoporosis. Patient takes vitamin-D. Student Activities Director/Model: Adility SL (S/N [id number]) CLINICAL INFORMATION: Current height: 62 inches Maximum [...] Rebecca Syed M.D. TW: TW Report ID: [id number] Reading Location: [id number] Procedure Note Rebecca Syed MD - 03/23/2024 EXAM DESCRIPTION: DEXA AXIAL SKELETON BONE DENSITY 1 OR MORE SITES REASON FOR STUDY: 74 y/o year old F with given history of: Post menopausal status. History prior fracture and secondary osteoporosis. Patient takes vitamin-D. Student Activities Director/Model: [employer] Discovery SL (S/N 38565) CLINICAL INFORMATION: Current height: 62 inches Maximum [...] 03/23/2024 4:45 PM - Electronically signed by Rebecac Syed M.D. TW: TW Report ID: [id number] Reading Location: [place] [address] Mer Vazquez NP IMG DXA PROCEDURES Final R esult * (ABNORMAL) Albumin Creatinine Ratio, Urine (02/14/2024 11:16 AM CDT) Albumin Ur 59.2 mg/L Comment: Interpretive Data No reference range established. Current interpretive data was last revised 2018. Testing performed by: [address] [address] Creatinine Ur 187.7 mg/dL YAMILXE JHA (KARIME) Comment: Interpretive Data No reference range established. Current interpretive data was last revised 2018. Testing performed by: [address] [address] Albumin Creatinine Ratio, Ur 32(H) 1 - 29 mg/g YAMILEX JHA (KARIME) Comment:Testing performed by : [address] [address] Urine 02/14/2024 11:1 6 AM CDT 02/14/2024 6:30 PM CDT us Mer Vazquez NP LAB URINE ORDERABLES Final Result YAMILEX JHA (KARIME) 1 [facility] Department [place] [address] * (ABNORMAL) Lipid panel (02/14/2024 11:16 AM [...] last revised on 2018. Testing performed by: [address] [address] Triglycerides 175(H) <=149 mg/dL YAMILEX JHA (KARIME) [...] last revised on 2018. Testing performed by: [facility], [address] [place] [address]., [address] HDL 34(L) >=40 mg/dL YAMILEX JHA (KARIME) [...] last revised on 2018. Testing performed by: [address] [address] LDL, calculated 74 <=129 mg/dL YAMILEX JHA [...] last revised on 2024. Testing performed by: [address] [address] Non-HDL Cholesterol 104 mg/dL YAMILEX JHA (KARIME) [...] last revised on 2018. Testing performed by: [address] [address] Chol/HDL ratio 4 REJI Page ABHIJEET (KARIME) Comment:Testing performed by : [facility], [id number] [place] [address], [place]., [address] Blood 02/14/2024 11:1 6 AM CDT 02/14/2024 6:30 PM CDT Mer Vazquez NP LAB BLOOD ORDERABLES Final Result YAMILEX ABHIJEET (MELDRIM) 1 [facility] Department [place] [address] * DIABETES EYE EXAM (10/19/2023) SCRIBED DIABETIC DILATED EYE EXAM Normal us Historical Provider HEALTH MAINTENANCE Final Result * Screening Mammogram Bilateral W Philipp (04/16/2023 12:56 PM COSMETIC SALES ADVISOR) Anatomical Region Laterality Modality Breast Bilateral Mammography 04/28/2023 2:18 PM COSMETIC SALES ADVISOR Impressions 04/28/2023 2:18 PM COSMETIC SALES ADVISOR There is no mammographic evidence of malignancy. A 1 year screening mammogram is recommended. BI-RADS: 1 - Negative. The patient has been or will be contacted. The patient will be entered into a reminder system with a target due date of 1 year for her next mammogram. Electronically signed by: Jaida Rothman M.D. Narrative 04/28/2023 2:18 PM COSMETIC SALES ADVISOR EXAMINATION: SCREENING MAMMOGRAM BILATERAL W PHILIPP ORDERING [...] [address] SUPPLEMENT MEDICARE [facility] Address: [place] [id number] [place] [address] LOCAL [address] Advance Directives For more information, please contact: [phone] Documents on File Type Date Recorded Patient Corporate Ethics Officer Expl anation ADVANCE DIRECTIVE 06/19/2022 6:10 PM * Full Code (Latest Code Status on File) Date Activated Date Inactivated Comments 04/29/2024 9:41 PM 05/01/2024 3:08 PM Care Teams Vocational Training Teacher Relationship Specialty Start Date End Date Jad Fisher MD [facility] [address] PCP - General Family Medicine 01/27/22 [place] [address] [address] Surgeon Orthopedic Surgery 11/26/22
--- OUTSIDE RECORDS SUMMARY | 2024-09-06 17:09 | XMS_ITS | CONTINUITY OF CARE DOCUMENT ---
Author Name taya opalbacilio Address Unknown Organization [facility] Address [address] [address] [place] [address] Phone [phone] Care Team Providers Care Dryer Operator Name Role Phone Jerrell HARRY, Zachary Unavailable BEE FRAZIER MD Unavailable [phone] BEE FRAZIER MD Unavailable [phone] PROBLEMS Condition Status Date Provider Notes Cardiology [...] In-person encounter Office Visit Zachary Allan MD [place] [facility] - In-person encounter Office Visit Zachary Allan MD [place] [facility] Renal artery stenosis - In-person encounter Office Visit Zachary Allan MD [facility] Cardiology examination - In-person encounter Office Visit Zachary Allan MD [facility] - In-person encounter Office Visit Zachary Allan MD [facility] - In-person encounter Office Visit Zachary Allan MD [place] [facility] Cardiology examinationFamily History of CVA or [...] blood pressure, systolic 114 mm[Hg] Kri sty Turner pulse rate 92 /min Yola Turner oxygen saturation, oximetry 98 % Yola Turner respiratory rate E&M 19 /min Yola Turner weight E&M 150 [lb_av] Yola Turner height E&M 62 [in_i] Yola Turner Body Mass Index (Ratio) 28.35 kg/m2 Shannan Allan MD oxygen saturation, oximetry 98 % Olenastity Lisa blood pressure, diastolic 84 mm[Hg] Ch astity Lisa blood pressure, systolic 137 mm[Hg] Olena stity Lisa pulse rate 89 /min Chastity Lisa respiratory rate E&M 16 /min Olenastit y Lisa weight E&M 155 [lb_av] [facility] E&M 62 [in_i] [facility] Body [facility] Index (Ratio) 27.98 kg/m2 Shannan [...] 0-149 High cholesterol, serum 157 mg/dL [employer] 090-162 5626/05/0 7 calcium, serum 9.6 mg/dL [employer] 8.7-10.3 7 carbon dioxide, venous blood 24 mmol/L [employer] 20-29 7 chloride, serum 103 mmol/L [employer] 96-106 7 sodium, serum 144 mmol/L [employer] 330-465 2295/05/0 7 urea nitrogen/creatinin e ratio, serum 29 [...] Estab. 7 platelet count 195 X10E3/UL [employer] 186-205 3315/05/0 7 red blood cell distribution width 14.3 [...] Regla jimenez is a former smoker. Zachary Allna MD social history reviewed E&M revi ewed [...] Policy type / Coverage type Brandin red constitution [place] [id number] [employer] [id number] ADVANCE DIRECTIVES Name Date DISCUSSED - NO DECISION MADE TREATMENT PLAN Date Name Performer [id number],S, H er updated medication list for this problem includes: Rosuvastatin 40 Mg Tablet (Rosuvastatin) Zachary Allan MD [id number],B,I s very good. No evidence of renal [...] ..... Once a day Zachary Allan MD [id number],C,N o evidence of renal artery stenosis from the renal artery scan. Zachary Allan MD [id number],S,P er PCP H er updated medication list for this problem includes: Tradjenta 5 Mg Tablet (Linagliptin) ..... Once a day Aspirin 81 Mg Tablet,delayed Release (dr/ec) (Aspirin) ..... Once a day Quinapril 5 Mg Tablet (Quinapril) ..... Once a day Ozempic 0.25 Mg Or 0.5 Mg(2 Mg/1.5 Ml) Pen Injector (Semaglutide) ..... Take 0.5 mg subcutaneously once a week Zachary Allan MD [id number],B,T his is better because she had a knee replacement which she is getting used to. Zachary Allan MD [id number],C, H er updated medication list for this problem includes: Rosuvastatin 40 Mg Tablet (Rosuvastatin) Zachary Allan MD [id number],C,Per Dr. Armstrong. Zachary Allan MD [id number],C,Not significa nt. Zachary Allan MD [id number],S,N o indication to intervene. Continue current medications. [...] btain results of CT scan from [facility] Regla barbara has been having abdominal [...] :Obtain results of CT scan from [facility] Regla atfarhad has been having abdominal pain and distension that worsens with eating for the past 4-5 months Zachary Allan MD Date Name EKG Carotid Duplex Bilat eral Complete Echo Renal Artery Duplex Complete Echo Renal Artery Duplex PROTHROMBIN TIME WIT H INR LIPID PANEL CBC (INCLUDES DIFF/P LT) BASIC METABOLIC PANE L W/EGFR Renal Angio - [facility] Arterial Duplex Bi-L ower EX HISTORY OF PROCEDURES Procedure Date Procedure Name Provider Procedure Notes S tatus EKG Zachary Allan MD completed EKG Zachary Allan MD completed
--- OUTSIDE RECORDS SUMMARY | 2024-09-06 17:09 | XMS_ITS | Referral Summary ---
Author Organization [facility] [address] Address [address] [place] [address] Care Team Providers Care Seat Builder Name Role Phone Jad Fisher MD Primary Care Provider [phone] Chang Ward MD Unavailable Encounters Date Type Department Care Team Description 07/14/2024 Telephone Family Physicians [facility] [address] [place] [address] Jad Fisher MD 06/28/2024 Telephone [facility] [address] [address] Raj Stoddard MD [employer] (acquired by [employer]) 06/22/2024 11:00 AM TRANSMISSION INSPECTOR Office Visit [facility] 6th [place] [address] Syeda Fernandez MD Arthritis of carpometacarpal (CMC) joint of left thumb (Primary Dx); Trigger finger of left thumb; Left carpal tunnel syndrome 06/08/2024 11:15 AM TRANSMISSION INSPECTOR Office [place] [facility] [address] [address] Raj Stoddard MD Type 2 [...] 04/12/2024 Assessment & Plan (04/12/2024 11:22 AM TRANSMISSION INSPECTOR): Started on Fosamax. Continue taking vitamin [...] Rosuvastatin 40mg. Last lipid panel: 02/19/23 LDL=73, LJ=806. No changes at this time. Assessment & Plan (08/12/2023 11:01 AM TRANSMISSION INSPECTOR): Chronic, stable LDL cholesterol goal Continue rosuvastatin Assessment & Plan (05/04/2023 10:39 AM TRANSMISSION INSPECTOR): Chronic problem, currently taking Rosuvastatin 40mg. Last lipid panel: 02/19/23 LDL=73, RX=192. No changes at this time. Assessment & Plan (01/19/2023 10:03 AM CDT): Chronic, well controlled Continue Rosuvastatin Assessment & Plan (08/18/2022 10:33 AM CDT): Chronic problem, currently taking Rosuvastatin 40mg. Last lipid panel: 8/26/22 LDL=62, JJ=660. No changes at this time. Hypertension associated with stage 2 chronic kidney disease due to type 2 diabetes mellitus 08/17/2022 Assessment & Plan (04/12/2024 11:42 AM TRANSMISSION INSPECTOR): Normotensive. Continue taking lisinopril. Red flags reviewed. Assessment & Plan (12/16/2023 10:21 AM CDT): Chronic problem, BP controlled on current lisinopril 40mg daily. No changes at this time. Assessment & Plan (09/13/2023 11:43 AM CDT): Normotensive. Continue lisinopril, clonidine. Will continue monitor. Assessment & Plan (05/04/2023 10:39 AM TRANSMISSION INSPECTOR): Chronic problem, BP controlled on current lisinopril 40mg daily. No changes at this time. Assessment & Plan (08/18/2022 10:33 AM CDT): Chronic problem, BP controlled on current quinapril 40mg daily. No changes at this time. Mild cognitive impairment 05/28/2022 Assessment & Plan (05/28/2022 4:07 PM TRANSMISSION INSPECTOR): Patient started on donepezil around 01/2022 [...] barefoot. Assessment & Plan (08/12/2023 11:00 AM TRANSMISSION INSPECTOR): Foot care discussed Continue gabapentin Assessment & Plan (05/04/2023 11:00 AM TRANSMISSION INSPECTOR): Chronic problem. Currently taking Gabapentin 300mg [...] aspirin starting Wednesday 11/22. Coronary arteriosclerosis in [place] artery 02/06 Overview (09/11/2016): CAD in [place] artery Impairment of balance 02/07/2016 Overview (09/11/2016): [...] UNCNTRLD Assessment & Plan (06/08/2024 12:04 PM TRANSMISSION INSPECTOR): Chronic, uncontrolled with a higher A1c [...] placed. Assessment & Plan (08/12/2023 11:00 AM TRANSMISSION INSPECTOR): Chronic, stable but not at goal Importance of diet and exercise discussed Continue current regimen with Levemir, Humalog, Ozempic and Farxiga Patient interested in an insulin pump Will get C-peptide, fasting glucose and galen antibody If appropriate, will start process for insulin pump Assessment & Plan (05/04/2023 10:58 AM TRANSMISSION INSPECTOR): Chronic problem. A1c improved from 8.0% [...] hours). Assessment & Plan (07/09/2022 4:06 PM TRANSMISSION INSPECTOR): Hba1c was Lab Results Component Value [...] Send me a message every week, via [employer], to let me know how you are [...] stroke Assessment & Plan (05/28/2022 4:08 PM TRANSMISSION INSPECTOR): Continues tight control of BP, statin [...] How often do you attend chur or anabaptist services? 1 to 4 times per year 08/20/2022 Do you belong to any clubs o r organizations such as episcopalian groups, unions, fraternal or athletic groups, or [...] staff should administer the PHQ-9) 0 06/08/2024 [facility] - Occupational Stress Questionnaire Answer Date [...] place to sleep or slept in a assisted (including now)? No 08/20/2022 PHQ-9 Answer Date [...] on file Legal Sex Female 6:13 AM TRANSMISSION INSPECTOR Gender Identity Not on file Sexual Orientation Straight 06/08/2024 11 :24 AM TRANSMISSION INSPECTOR Last Filed Vital Signs Vital Sign Reading Time Taken Comments Blood Pressure 132/70 06/08/2024 11:34 AM TRANSMISSION INSPECTOR Pulse 88 06/08/2024 11:34 AM TRANSMISSION INSPECTOR Temperature 36.2 C (97.2 F) 05/01/2024 7:45 AM TRANSMISSION INSPECTOR Respiratory Rate 20 06/08/2024 11:34 AM TRANSMISSION INSPECTOR Oxygen Saturation 97% 05/01/2024 7:45 AM TRANSMISSION INSPECTOR Inhaled Oxygen Concentration - - Weight 76.8 kg (169 lb 6.4 oz) 06/08/2024 11:34 AM TRANSMISSION INSPECTOR Height 154.9 cm (5' 1 ) 06/08/2024 11:34 AM TRANSMISSION INSPECTOR Body Mass Index 32.01 06/08/2024 11:34 AM TRANSMISSION INSPECTOR Plan of Treatment Not on file Medical Devices Implanted Type Area Ankle Patch Molder Device Identifier Shelf Expiration Date Model / Serial / Lot [employer] Dvr [id number] Crosslock [place] Screw Hole Fix Angle Radius Left 1318-21-050 - [id number] Implanted:Qty: 1 on 11/26/2022 by Chang Ward MD at [facility] Left: Wrist [employer] 1318-21-050 / / [employer] Dvr 2.7mm 18mm 3 Lead Thread Lock Taper Head Radius Distal Volar 13127 - [id number] Implanted:Qty: 1 on 11/26/2022 by Chang Ward MD at [facility] Left: Wrist [employer] 1312-27-118 / / [employer] Dvr 2.7mm 20mm Lock Spine Screw Bone Nonsterile 13108-03-120 - [id number] Implanted:Qty: 2 on 11/26/2022 by Chang Ward MD at [facility] Left: Wrist [employer] 1312--120 / / [employer] 2.7mm 13mm Nonlock Low Profile Radius Distal Screw Bone [id number] - [id number] Implanted:Qty: 1 on 11/26/2022 by Chang Ward MD at [facility] Left: Wrist [employer] [id number] / / [employer] Dvr 2.7mm 14mm Lock Cortical Screw Bone Nonsterile Latex Free 1312-27-114 - [id number] Implanted:Qty: 2 on 11/26/2022 by Chang Ward MD at [facility] Left: Wrist [employer] 1312-27-114 / / [employer] Dvr 2.7mm 13mm Lock 3 Lead Thread Crosslock Taper Head Radius 1312-27-113 - [id number] Implanted:Qty: 1 on 11/26/2022 by Chang Ward MD at [facility] Left: Wrist [employer] 1312-27-113 / / Procedures Procedure Name Priority Date/Time Associated Diagnosis Comments POCT GLUCOSE Routine 06/08/2024 11:35 AM TRANSMISSION INSPECTOR Type 2 diabetes mellitus with hyperglycemia, with long-term current use of insulin ([facility]) POCT HEMOGLOBIN A1C Routine 06/08/2024 1 1:35 AM TRANSMISSION INSPECTOR Type 2 diabetes mellitus with hyperglycemia, with long-term current use of insulin ([facility]) EGFR Routine 05/01/2024 4:27 AM TRANSMISSION INSPECTOR COLONOSCOPY REPORT Routine 04/04/2024 10 :21 [...] Read Routine (OP Routine) 04/16/2023 12:56 PM TRANSMISSION INSPECTOR Encounter for screening mammogram for malignant neoplasm of breast from Last 3 Months or Most Recently Relevant to Health Maintenance Results * (ABNORMAL) POCT hemoglobin A1c (06/08/2024 11:35 AM TRANSMISSION INSPECTOR) Hemoglobin A1C, POC 7.7 4.0 - 5.6 % Comment:None Capillary blood 06/08/2024 1 1:35 AM TRANSMISSION INSPECTOR us Raj Stoddard MD POINT OF CARE TEST ORDERABLES Fi nal Result * (ABNORMAL) POCT glucose (06/08/2024 11:35 AM TRANSMISSION INSPECTOR) Glucose Blood, POC 214 mg/dL Comment:None Blood 06/08/2024 11:3 5 AM TRANSMISSION INSPECTOR us Raj Stoddard MD POINT OF CARE TEST ORDERABLES Fi nal Result * eGFR (05/01/2024 4:27 AM TRANSMISSION INSPECTOR) eGFR 78 >=60 mL/min/1. 73 m2 [...] last reviewed 2021. Blood 05/01/2024 4:27 AM TRANSMISSION INSPECTOR 05/01/2024 5:47 AM TRANSMISSION INSPECTOR Bro Jameson MD LAB BLOOD ORDERABLES Final Resu lt YAMILEX JHA ALCOVE 1 [facility] Department [place] [address] * Colonoscopy Report -[facility] (04/04/2024 10:21 AM CDT) [...] fracture and secondary osteoporosis. Patient takes vitamin-D. Ankle Patch Molder/Model: [employer] SL (S/N [id number]) CLINICAL INFORMATION: Current height: 62 inches Maximum [...] Rebecca Syed M.D. TW: TW Report ID: [id number] Reading Location: [id number] Procedure Note Rebecca Syed MD - 03/23/2024 EXAM DESCRIPTION: DEXA AXIAL SKELETON BONE DENSITY 1 OR MORE SITES REASON FOR STUDY: 74 y/o year old F with given history of: Post menopausal status. History prior fracture and secondary osteoporosis. Patient takes vitamin-D. Ankle Patch Molder/Model: [employer] SL (S/N [id number]) CLINICAL INFORMATION: Current height: 62 inches Maximum [...] Rebecca Syed M.D. TW: SHAHEEN Report ID: [id number] Reading Location: [place] [address] Mer Simpson NP IMG DXA PROCEDURES Final R esult * (ABNORMAL) Albumin Creatinine Ratio, Urine (02/14/2024 11:16 AM CDT) Albumin Ur 59.2 mg/L Comment: Interpretive Data No reference range established. Current interpretive data was last revised 2018. Testing performed by: [facility], [address] [place]., [address] Creatinine Ur 187.7 mg/dL YAMILEX JHA (KARIME) Comment: Interpretive Data No reference range established. Current interpretive data was last revised 2018. Testing performed by: [facility], [address] [place] [address]., [address] Albumin Creatinine Ratio, Ur 32(H) 1 - 29 mg/g YAMILEX JHA (KARIME) Comment:Testing performed by : [facility], [address] [place] [address]., [id number] Urine 02/14/2024 11:1 6 AM CDT 02/14/2024 6:30 PM CDT Mer Simpson NP LAB URINE ORDERABLES Final Result YAMILEX JHA (KARIME) 1 [facility] Department [place] [address] * (ABNORMAL) Lipid panel (02/14/2024 11:16 AM [...] last revised on 2018. Testing performed by: [facility], [address] [place] [address]., [address] Triglycerides 175(H) <=149 mg/dL YAMILEX JHA (KARIME) [...] last revised on 2018. Testing performed by: [facility], [address] [place] [address]., [address] HDL 34(L) >=40 mg/dL YAMILEX JHA (KARIME) [...] last revised on 2018. Testing performed by: [facility], [address] [place] [address]., [address] LDL, calculated 74 <=129 mg/dL YAMILEX JHA [...] last revised on 2024. Testing performed by: [facility], [address] [place] [address]., [address] Non-HDL Cholesterol 104 mg/dL YAMILEX JHA (KARIME) [...] last revised on 2018. Testing performed by: [facility], [address] [place] [address]., [address] Chol/HDL ratio 4 REJI JHA (KARIME) Comment:Testing performed by : [facility], [address] [place] [address]., [address] Blood 02/14/2024 11:1 6 AM CDT 02/14/2024 6:30 PM CDT Mer Simpson NP LAB BLOOD ORDERABLES Final Result YAMILEX HJA (KARIME) 1 [facility] Department [place] [address] * DIABETES EYE EXAM (10/19/2023) SCRIBED DIABETIC DILATED EYE EXAM Normal Historical Provider HEALTH MAINTENANCE Final Result * Screening Mammogram Bilateral W Philipp (04/16/2023 12:56 PM TRANSMISSION INSPECTOR) Anatomical Region Laterality Modality Breast Bilateral Mammography 04/28/2023 2:18 PM TRANSMISSION INSPECTOR Impressions 04/28/2023 2:18 PM TRANSMISSION INSPECTOR There is no mammographic evidence of malignancy. A 1 year screening mammogram is recommended. BI-RADS: 1 - Negative. The patient has been or will be contacted. The patient will be entered into a reminder system with a target due date of 1 year for her next mammogram. Electronically signed by: Jaida Rothman M.D. Narrative 04/28/2023 2:18 PM TRANSMISSION INSPECTOR EXAMINATION: SCREENING MAMMOGRAM BILATERAL W PHILIPP [...] been no suspicious interval change. Mer Simpson FACTORY MACHINE COMPUTER OPERATOR IMG MAMMO PROCEDURES Final Result from Last 3 Months or Most Recently Relevant to Health Maintenance Insurance COMMERCIAL GENERIC MEDICARE LOCAL [facility] H & W MCR SUPPLEMENT MEDICARE LOCAL [facility] H & W MCR SUPPLEMENT Advance Directives For more information, please contact: [phone] Documents on File Type Date Recorded Patient Pie Filler Expl hien ADVANCE DIRECTIVE 06/19/2022 6:10 PM * Full Code (Latest Code Status on File) Date Activated Date Inactivated Comments 04/29/2024 9:41 PM 05/01/2024 3:08 PM Care Teams Seat Builder Relationship Specialty Start Date End Date Jad Fisher MD [address] [place] [address] PCP - General Family Medicine 01/27/22 [place] [address] [address] Surgeon Orthopedic Surgery 11/26/22
--- OUTSIDE RECORDS SUMMARY | 2024-09-06 17:09 | XMS_ITS | Clinical Summary ---
Author Organization [facility] Address [address] [place] [address] Care Team Providers Care Male Infertility Specialist Name Role Phone Júnior Puente MD Primary Care Provider [phone] Source Comments [facility],non-owned Affiliates and Associated Physician Practices is amultiple site organization consisting of ambulatory clinics and hospital sitesin [place], [place], [place] and [place]. This disclosure is being madepursuant to the Care Everywhere program and may not contain all information available regarding this patient. Last updated 18.[facility] Allergies No known active allergies Medications * [...] Comments Blood Pressure 118/58 07/23/2020 11:30 AM PASSPORT SUPPORT MANAGER Pulse 74 07/23/2020 11:30 AM PASSPORT SUPPORT MANAGER Temperature 36.5 C (97.7 F) 07/23/2020 10:19 AM PASSPORT SUPPORT MANAGER Respiratory Rate 6 07/23/2020 11:30 AM PASSPORT SUPPORT MANAGER Oxygen Saturation 94% 07/23/2020 11:30 AM PASSPORT SUPPORT MANAGER Inhaled Oxygen Concentration - - Weight 70.8 kg (156 lb) 07/23/2020 8:34 AM PASSPORT SUPPORT MANAGER Height 157.5 cm (5' 2 ) 07/23/2020 8:34 AM PASSPORT SUPPORT MANAGER Body Mass Index 28.53 07/23/2020 8:34 AM PASSPORT SUPPORT MANAGER Plan of Treatment Health Maintenance Due [...] PANEL (CALCIUM TOTAL) STAT 07/23/2020 8:14 AM PASSPORT SUPPORT MANAGER Preop examination HEMOGLOBIN A1C Routine 01/12/2013 2:30 AM CDT from Last 3 Months or Most Recently Relevant to Health Maintenance Results * (ABNORMAL) BASIC METABOLIC PANEL (CALCIUM TOTAL) (07/23/2020 8:14 AM PASSPORT SUPPORT MANAGER) BUN 13 7 - 26 mg/dL 07/23/2020 8:48 AM [facility] Creatinine 0.7 0.6 - 1.2 mg/dL 07/23/2020 8:48 AM [facility] Sodium 141 136 - 145 mmol/L 07/23/2020 8:48 AM [facility] Potassium 3.3(L) 3.5 - 4.5 mmol/L 07/23/2020 8:48 AM [facility] Chloride 106 98 - 107 mmol/L 07/23/2020 8:48 AM [facility] CO2 24 22 - 29 mmol/L 07/23/2020 8:48 AM [facility] Glucose 167(H) 70 - 115 mg/dL 07/23/2020 8:48 AM [facility] Calcium 8.5 8.4 - 10.2 mg/dL 07/23/2020 8:48 AM [facility] Anion Gap 14 8 - 18 07/23/2020 8:48 AM [facility] BUN/Creatinine Ratio 19 7 - 23 07/23/2020 8:48 AM [facility] Osmolality Calculated 296 270 - 300 mOsm/kg 07/23/2020 8:48 AM [facility] eGFR >60 >60 mL/min/1.7 3 m2 07/23/2020 8:48 AM [facility] Blood BLOOD SPECIMEN / Unknown Venipuncture / Unknown 07/23/2020 8:14 AM PASSPORT SUPPORT MANAGER 07/23/2020 8:18 AM PASSPORT SUPPORT MANAGER Rod Olivas MD LAB - CHEMISTRY [facility] [address] [place] [address], [facility] [phone] * (ABNORMAL) HEMOGLOBIN A1C (01/12/2013 2:30 AM CDT) Hemoglobin A1c 7.1(H) 4.4 - 6.3 % [facility] Estimated Average Glucose 157 mg/dL [facility] Blood specimen (specimen) 01/12/2013 2:30 AM CDT 01/12/2013 2:55 AM CDT rAturo Ernst MD LAB - CHEMISTRY [facility] [address] [place], [place] [address] [phone] from Last 3 Months or Most Recently Relevant to Health Maintenance Care Teams Male Infertility Specialist Relationship Specialty Start Date End Date Júnior Puente MD [address] [place], [place] [id number] PCP - General 03/02/14
--- NOTE | 2024-09-06 17:23 | ED.GENADULT ---
HPI - General Adult General Chief complaint: Nausea/Vomiting/Diarrhea Stated complaint: diarrhea, weakness Time Seen by Provider: 09/06/24 16:34 History of Present Illness HPI narrative: 74-year-old female presenting to the emergency department for evaluation for recurrent C diff symptoms. Patient was treated for C diff at the end of June beginning of July. Patient did complete a course of Dificid and then was transition to Flagyl. Patient states that she did have follow-up with GI as outpatient. Patient reports he did have complete resolution of her symptoms. Patient reports that the diarrhea did begin approximately 36 hours ago. Patient does feel excessively weak and patient does live on her own. Patient denies any nausea vomiting or current abdominal pain. Patient denies any urinary symptoms. Related Data Home Medications ?Medication ?Instructions ?Recorded ?Confirmed ?Last Taken ?Type aspirin 81 mg tablet,delayed 81 mg PO DAILY 10/13/19 07/27/24 07/06/24 History release (Adult Low Dose Aspirin) buspirone 7.5 mg tablet 7.5 mg PO TID 02/02/23 07/27/24 04/03/24 History clopidogrel 75 mg tablet 75 mg PO DAILY 02/02/23 07/27/24 07/06/24 History duloxetine 60 mg capsule,delayed 60 mg PO DAILY 02/02/23 07/27/24 07/06/24 History release insulin aspart U-100 100 unit/mL 8 unit subcut TIDWM 02/02/23 07/27/24 07/06/24 History (3 mL) subcutaneous pen insulin detemir U-100 100 unit/mL 30 unit subcut BID 02/02/23 07/27/24 07/06/24 History (3 mL) subcutaneous pen (Levemir FlexPen) lisinopril 40 mg tablet 40 mg PO DAILY 02/02/23 07/27/24 07/06/24 History semaglutide 1 mg/dose (4 mg/3 mL) 2 mg subcut WEEKLY 02/02/23 07/27/24 06/30/24 History subcutaneous pen injector (Ozempic) alprazolam 0.25 mg tablet 0.25 mg PO TID PRN Anxiety 03/28/24 07/27/24 07/06/24 History biotin 1,000 mcg chewable tablet 1,000 mcg PO DAILY 03/28/24 07/27/2407/06/25 History cholecalciferol (vitamin D3) 25 25 mcg PO DAILY 03/28/24 07/27/24 07/06/24 History mcg (1,000 unit) tablet (Vitamin D3) donepezil 10 mg tablet 10 mg PO HS 03/28/24 07/27/24 07/06/24 History rosuvastatin 40 mg tablet 40 mg PO DAILY 03/28/24 07/27/24 07/06/24 History ascorbic acid (vitamin C) 100 mg 100 mg PO DAILY 07/07/24 07/27/24 07/06/24 History tablet (Vitamin C) turmeric 400 mg capsule 400 mg PO DAILY 07/07/24 07/27/24 07/06/24 History vitamin B complex 1 tablet PO DAILY 07/07/24 07/27/24 07/06/24 History Allergies Allergy/AdvReac Type Severity Reaction Status Date / Time No Known Allergies Allergy Verified 09/06/24 14:37 Review of Systems Review of Systems: All systems reviewed & are unremarkable except as noted in HPI and below PMFSH Past Medical History Medical History Frequent urination Diabetes Arthritis IBS (irritable bowel syndrome) Fatigue Colitis Abdominal pain Diarrhea ACL tear Tear of MCL (medial collateral ligament) of knee Surgical History Surgical History H/O: hysterectomy Total hysterectomy gallbladder removed Family History Family History Mother Hypertension Cerebrovascular accident Family history of diabetes mellitus in first degree relative Family history of coronary artery disease Grandparent Family history of lung cancer Family history of coronary artery disease Diabetes mellitus Father Cancer Aplastic anemia Sibling Diabetes mellitus Heart disease Other Family history of arthritis Family history of gout Family history of malignant neoplasm Social History Social History Smoking packs per day: 1 Smoking cigarettes per day: 20.0 Years smoked: 45 Smoking pack-years: 45.00 Smoking status: Former smoker Alcohol intake: never Alcohol use details: social Substance use: never Substance use type: does not use Do You Feel Safe in your Home?: Yes Lack of Transportation: No Lack of Food: Never True Current Housing: I Have Housing Concerned About Future Housing: No Difficulty Paying Gas/Electric Bills: No Difficulty Paying for Meds: No Currently Unemployed: No Education: High School Diploma/GED Difficulty w/ Childcare or Family Care: No Living arrangements: with family Occupation/Education: retired Gender identity (if verbalized by the patient): Female Spiritual care concerns: No Exam Narrative: APPEARANCE: Ill-appearing HEAD: normocephalic, atraumatic. EYES: PERRLA/EOMI, conjunctivae clear. NOSE: Normal no drainage EARS:TMS clear with good light reflex. THROAT: Pharynx clear, no exudate. NECK: Supple. No adenopathy, no masses. RESPIRATORY: Airway patent, respirations nonlabored. Clear to auscultation bilaterally, no rales, rhonchi, wheezing. CARDIOVASCULAR: Regular rate and rhythm without murmurs rubs or gallops. ABDOMINAL: Soft, nontender, nondistended, normal bowel sounds MUSCULOSKELETAL: Moves all extremities. Strength/ROM intact, No edema, No calf tenderness. NEURO: Alert. Cranial nerves II through XII intact. Grossly intact SKIN: Warm, dry. Normal Color Course Vital Signs Vital signs: Vital Signs Temperature 97.8 F 09/06/24 14:57 Pulse Rate 104 H 09/06/24 14:57 Respiratory Rate 20 09/06/24 14:57 Blood Pressure 141/67 H 09/06/24 14:57 Pulse Oximetry 100 09/06/24 14:57 Oxygen Delivery Room Air 09/06/24 14:57 Temperature 98.4 F 09/06/24 18:42 Pulse Rate 91 09/06/24 18:42 Respiratory Rate 16 09/06/24 18:42 Blood Pressure 128/49 L 09/06/24 18:42 Pulse Oximetry 98 09/06/24 18:42 Oxygen Delivery Room Air 09/06/24 14:57 Medical Decision Making MDM Narrative Medical decision making narrative: 74-year-old female presents emergency department for evaluation for increased generalized weakness secondary to diarrhea for the last 36 hours. Patient did have a history of C diff and previous been treated with 10 days of Dificid and then 4 days of Flagyl. Patient states that all her symptoms had resolved until recently when she started having diarrhea again. Patient does report weakness but denies any associated abdominal pain. Patient is currently afebrile but does have a leukocytosis of 10.6 and hemoglobin of 15.7. Patient has no significant acute abnormalities on her CMP and patient's albumin is 4.5. UA was positive for leukocyte esterase and high white blood cells but was also positive for many squamous epithelial cells and high bacteria. Patient denies any urinary symptoms. Patient has a the urine culture pending. Patient will not be started on antibiotics specifically for her urinary tract infection. Case was discussed GI and they will see the patient as consult. They recommended starting the patient on p.o. vancomycin 250 mg Q 6. Differential Diagnosis Differential Diagnosis: Colitis, diverticulitis, enteritis, C diff, dehydration, viral etiology Vital Signs Vital Signs: Vital Signs Temperature 97.8 F 09/06/24 14:57 Pulse Rate 104 H 09/06/24 14:57 Respiratory Rate 20 09/06/24 14:57 Blood Pressure 141/67 H 09/06/24 14:57 Pulse Oximetry 100 09/06/24 14:57 Oxygen Delivery Room Air 09/06/24 14:57 Temperature 98.4 F 09/06/24 18:42 Pulse Rate 91 09/06/24 18:42 Respiratory Rate 16 09/06/24 18:42 Blood Pressure 128/49 L 09/06/24 18:42 Pulse Oximetry 98 09/06/24 18:42 Oxygen Delivery Room Air 09/06/24 14:57 Lab Data 09/06/24 16:42 09/06/24 16:42 Labs: Lab Results 09/06/24 09/06/24 09/06/24 Range/Units 15:18 15:19 16:42 WBC 10.6 H (4.5-10.0) K/mm3 RBC 5.20 (4.2-5.4) M/mm3 Hgb 15.7 H D (12.0-15.0) g/dL Hct 46.6 (37.0-47.0) % MCV 89.6 (80-100) fl MCH 30.2 (26-34) pg MCHC 33.7 (32-36) g/dl RDW 13.8 (11.5-14.5) % Plt Count 219 D (150-375) k/mm3 MPV 9.7 (7.4-10.4) fl Immature Gran % (Auto) 0.3 (0-0.5) % Neut % (Auto) 74.2 H (45.5-73.1) % Lymph % (Auto) 18.6 (18.3-44.2) % [place] % (Auto) 5.5 (2.6-8.5) % Eos % (Auto) 1.1 (0-4.4) % Baso % (Auto) 0.3 (0.2-1.2) % Lymph # (Auto) 1.97 (0.9-3.2) K/mm3 [place] # (Auto) 0.6 (0.1-0.6) K/mm3 Eos # (Auto) 0.1 (0-0.3) K/mm3 Baso # (Auto) 0.0 (0.0-0.1) K/mm3 Abs Immat Gran (auto) 0.03 (0.00-0.031) K/mm3 Absolute Neuts (auto) 7.9 H (1.3-6.7) K/mm3 Absolute Nucleated RBC 0.000 (0.0-0.012) K/mm3 Nucleated RBC % 0.0 (0.0-0.2) % Sodium 137 (137-145) mmol/L Potassium 3.6 (3.4-5.0) mmol/L Chloride 106 (98-107) mmol/L Carbon Dioxide 16 L (22-30) mmol/L Anion Gap 15 H (4-12) mmol/L BUN 24 H (7-17) mg/dL Creatinine 0.82 (0.7-1.0) mg/dL Estim Creat Clear Calc 49 ml/min Estimated GFR > 60 (59 - ) Glucose 205 H (65-110) mg/dL Calcium 9.2 (8.4-10.2) mg/dL Total Bilirubin 0.8 (0.2-1.3) mg/dL AST 21 (14-36) U/L ALT 20 (6-35) U/L Alkaline Phosphatase 81 (38-126) U/L Total Protein 7.0 (6.3-8.2) g/dL Albumin 4.5 (3.5-5.1) g/dL Lipase 141 (23-300) U/L Urine Color Yellow (Yellow) Urine Appearance Turbid H (Clear) Urine pH 5.5 (5.0-9.0) Ur Specific [place] 1.022 (1.001-1.035) Urine Protein 2+ H (Negative) mg/dL Urine Glucose (UA) Negative (Negative) mg/dL Urine Ketones Trace H (Negative) mg/dL Ur Blood (Man) Negative (Negative) Urine Nitrate Negative (Negative) Urine Bilirubin Negative (Negative) Urine Urobilinogen 0.2 (<2.0) mg/dL Add Ur Microanalysis Reviewed Leukocyte Esterase Rfl 3+ H (Negative) DELVIN/UL Urine RBC 3-5 H (0-2) /hpf Urine WBC 21-50 H (0-3) /hpf Ur Squamous Epith Cells Many H (Few) /hpf Urine Bacteria 4+ H /hpf Urine Casts 6-10 Hyaline Casts 1-2 (None) /lpf Urine Mucus Present /lpf C. difficile (PCR) Positive A* (NEGATIVE) Discharge Plan Discharge Clinical Impression: C. difficile colitis, Dehydration, Generalized weakness Patient Disposition: Still a Patient Condition: Stable
[2024-09-06] MEDS: SODIUM CHLORIDE 0.9% IV 1,000 ML 250 ML IV CONT (18:18)
[2024-09-06] MEDS: VANCOMYCIN HCL 250 MG ORAL CAPSULE PO ×2 (18:18→23:40)
--- NOTE | 2024-09-06 18:27 | ADMGEN ---
This patient, Mildred Grace, was admitted to Medical Room 258-01. Patient/family oriented to hospital policies and general routines including ID bracelet, bed and alarms, visiting hours, pain management, procedures, bathroom and other care routines, personal items, smoking policy, room service/diet, and visiting hours. Information on how to activate the Rapid Response Team has been discussed. Patient/Family are encouraged to report perceived risks to care and to ask questions if they do not understand what they are told or what they should do.
--- NOTE | 2024-09-06 18:28 | PM.IMHP ---
H&P: HPI History of Present Illness Date/Time: 09/06/24 18:28 Chief Complaint: Generalized Weakness Narrative: 74 y/o F with PMH of colitis, c. diff, IBS, diabetes, and arthritis presents here with generalized weakness and diarrhea. The patient presents here from home for further evaluation of generalized weakness and diarrhea. She was originally placed on Augmentin back in May of 2024 for a upper respiratory infection x2 weeks following COVID. She developed hematochezia, vomiting, and diarrhea on 07/07/2024. CT at that time revealed colitis extending from the mid transverse to the mid sigmoid colon. She was started on Cipro and Flagyl for the colitis. She tested positive for C diff. and she was started on Dificid. During this admission she underwent a colonoscopy which showed a 3 mm hyperplastic polyp (excised) and a few small internal hemorrhoids in the rectum At discharge she was continued on Dificid and she was transition to oral Flagyl. She then had follow-up with GI on 07/27/2024, at that time she reported diarrhea had resolved but she continued to have ongoing abdominal cramping which was felt to be residual from previous C diff. Since then she reports the abdominal cramping and diarrhea resolved for a few weeks (close to a month). Now reporting generalized weakness and recurrence of diarrhea starting in the last 24 hours. Estimates she has gone 20+ times in the last 24 hours. Denies associated hematochezia, abdominal pain, fever, chills, body aches. Initial VS at presentation: 97.8? F, HR 104, RR 20, 141/67, and 100% on RA. ED workup showed: WBC 10.6, hemoglobin 15.7 (14.7 on 08/11/2024), creatinine 0.82 and GFR >60, glucose 205, no abnormality of LFTs or lipase, and UA suspicious for UTI (may be contaminant, many epithelial cells). +c. diff on 09/06. Review of Systems Review of Systems: All systems reviewed & are unremarkable except as noted in HPI and below PMFSH Past Medical History Medical History Shingles Gout Overactive bladder Coronary artery disease Colitis Mixed hyperlipidemia Frequent urination Diabetes Arthritis IBS (irritable bowel syndrome) Fatigue Abdominal pain Diarrhea ACL tear Tear of MCL (medial collateral ligament) of knee Surgical History Surgical History History of tubal ligation History of total knee arthroplasty Right History of cholecystectomy H/O: hysterectomy Total hysterectomy, ovaries and uterus precancerous Family History Family History Mother Hypertension Cerebrovascular accident Family history of diabetes mellitus in first degree relative Family history of coronary artery disease Grandparent Family history of lung cancer Family history of coronary artery disease Diabetes mellitus Father Cancer Aplastic anemia Sibling Diabetes mellitus Heart disease Other Family history of arthritis Family history of gout Family history of malignant neoplasm Social History Social History Smoking packs per day: 1 Smoking cigarettes per day: 20.0 Years smoked: 45 Smoking pack-years: 45.00 Smoking status: Former smoker Alcohol intake: never Alcohol use details: social Substance use: never Substance use type: does not use Do You Feel Safe in your Home?: Yes Lack of Transportation: No Lack of Food: Never True Current Housing: I Have Housing Concerned About Future Housing: No Difficulty Paying Gas/Electric Bills: No Difficulty Paying for Meds: No Currently Unemployed: No Education: High School Diploma/GED Difficulty w/ Childcare or Family Care: No Living arrangements: with family Occupation/Education: retired Gender identity (if verbalized by the patient): Female Spiritual care concerns: No Meds Home Medications and Allergies Home Medications ?Medication ?Instructions ?Recorded ?Confirmed ?Type aspirin 81 mg tablet,delayed 81 mg PO DAILY 10/13/19 09/06/24 History release (Adult Low Dose Aspirin) buspirone 7.5 mg tablet 7.5 mg PO TID 02/02/23 09/06/24 History clopidogrel 75 mg tablet 75 mg PO DAILY 02/02/23 09/06/24 History duloxetine 60 mg capsule,delayed 60 mg PO DAILY 02/02/23 09/06/24 History release insulin aspart U-100 100 unit/mL 8 unit subcut TIDWM 02/02/23 09/06/24 History (3 mL) subcutaneous pen insulin detemir U-100 100 unit/mL 30 unit subcut BID 02/02/23 09/06/24 History (3 mL) subcutaneous pen (Levemir FlexPen) lisinopril 40 mg tablet 40 mg PO DAILY 02/02/23 09/06/24 History semaglutide 1 mg/dose (4 mg/3 mL) 2 mg subcut WEEKLY 02/02/23 09/06/24 History subcutaneous pen injector (Ozempic) alprazolam 0.25 mg tablet 0.25 mg PO TID PRN Anxiety 03/28/24 09/06/24 History biotin 1,000 mcg chewable tablet 1,000 mcg PO DAILY 03/28/24 09/06/24 History cholecalciferol (vitamin D3) 25 25 mcg PO DAILY 03/28/24 09/06/24 History mcg (1,000 unit) tablet (Vitamin D3) donepezil 10 mg tablet 10 mg PO HS 03/28/24 09/06/24 History rosuvastatin 40 mg tablet 40 mg PO DAILY 03/28/24 09/06/24 History ascorbic acid (vitamin C) 100 mg 100 mg PO DAILY 07/07/24 09/06/24 History tablet (Vitamin C) turmeric 400 mg capsule 400 mg PO DAILY 07/07/24 09/06/24 History vitamin B complex 1 tablet PO DAILY 07/07/24 09/06/24 History vibegron 75 mg tablet (Gemtesa) 75 mg PO DAILY #90 tabs 07/31/24 09/06/24 Rx dicyclomine 10 mg capsule 10 mg PO TID PRN abdominal cramping 09/06/24 09/06/24 History Allergies Allergy/AdvReac Type Severity Reaction Status Date / Time No Known Allergies Allergy Verified 09/06/24 14:37 Vital Signs Vital Signs - 24 hr 09/06/24 14:57 09/06/24 16:46 09/06/24 17:16 Temperature 97.8 F Pulse Rate 104 H Respiratory Rate 20 Blood Pressure 141/67 H 141/70 H 154/51 H Pulse Oximetry 100 95 98 Oxygen Delivery Room Air 09/06/24 17:31 Temperature 97.8 F Pulse Rate 94 Respiratory Rate 16 Blood Pressure 142/64 H Pulse Oximetry 95 Oxygen Delivery Exam Const: General: comfortable and no acute distress Other: , female, nontoxic appearance HENMT: Face/Nose/Sinus: Normal nares present Mouth: Yes dry mucous membranes Eyes: General: appearance normal, both eyes and all related structures Sclera: sclerae normal Pupils: Equal, round and reactive pupils present EOM: EOMs intact bilaterally Resp: Effort & Inspection: normal respiratory effort Auscultation: clear to auscultation bilaterally Cardio: Rate: regular rate Rhythm: regular rhythm Other: S1-S2 present without murmur, rub, ectopy GI: Other: Abdomen soft, nondistended, hyperactive bowel sounds in all quadrants. No tenderness on exam. Skin: General skin exam: normal color and no rashes or lesions noted Wounds: no wounds Neuro: Speech: normal speech Motor exam (neuro): 5/5 motor strength present throughout Sensory Exam: normal sensation Other: A&O x4 Extrem: General: normal to inspection Psych: Mental Status: mental status grossly normal Affect: normal affect Other: Good insight and judgment, very pleasant H&P: Results Labs Labs: Short CBC 09/06/24 Range/Units 16:42 WBC 10.6 H (4.5-10.0) K/mm3 Hgb 15.7 H D (12.0-15.0) g/dL Hct 46.6 (37.0-47.0) % Plt Count 219 D (150-375) k/mm3 BMP 09/06/24 16:42 Sodium 137 Potassium 3.6 Chloride 106 Carbon Dioxide 16 L BUN 24 H Creatinine 0.82 Glucose 205 H Calcium 9.2 Liver Function 09/06/24 Range/Units 16:42 Total Bilirubin 0.8 (0.2-1.3) mg/dL AST 21 (14-36) U/L ALT 20 (6-35) U/L Alkaline Phosphatase 81 (38-126) U/L Albumin 4.5 (3.5-5.1) g/dL Urine 09/06/24 Range/Units 15:19 Urine Color Yellow (Yellow) Urine Appearance Turbid H (Clear) Urine pH 5.5 (5.0-9.0) Ur Specific [place] 1.022 (1.001-1.035) Urine Protein 2+ H (Negative) mg/dL Urine Glucose (UA) Negative (Negative) mg/dL Assessment and Plan Assessment and plan (1) Clostridioides difficile infection: Code(s): A49.8 - Other bacterial infections of unspecified site Status: Acute Assessment and Plan: - c. diff+ on 07/07/2024 (initial) and today, / - GI consulted, ED spoke with on-call grain scooper (Juan) recommended oral vancomycin versus Dificid. - continue oral vancomycin - antiemetics p.r.n. and dicyclomine p.r.n. - IV fluids - trend WBC - will forego CT of the abdomen/pelvis at this time as the patient does not have abdominal pain or hematochezia. If patient develops abdominal pain, BRB per rectum, or leukocytosis, consider further imaging. - clear liquid diet (2) Dehydration: Code(s): E86.0 - Dehydration Status: Acute Assessment and Plan: - patient mildly tachycardic in the low 100s and hemoglobin mildly elevated compared to prior, suspect some level of dehydration. - IV fluids: 250 mL/hr x1L - monitor I&Os (3) Type 2 diabetes mellitus with diabetic neuropathy, unspecified: Code(s): E11.40 - Type 2 diabetes mellitus with diabetic neuropathy, unspecified Status: Chronic Assessment and Plan: - hypoglycemia protocol - POC blood glucose ACHS - home medication: Hold Ozempic (NF). continue aspart 8 units t.i.d. WM, Levemir 30 units b.i.d. - correct regimen ordered - moderate dose TIDWM and HS, based off BMI - A1C 8.3% on 08/11/2024 (4) Essential (primary) hypertension: Code(s): I10 - Essential (primary) hypertension Status: Chronic Assessment and Plan: - chronic, currently 153/76 - continue home medications: Lisinopril 40 mg daily - monitor Plan Diet: Clear liquid GI Prophylaxis: Pantoprazole p.o. DVT Prophylaxis: SCDs Lines: Peripheral Code Status: Full code Quality VTE Prophylaxis VTE prophylaxis: mechanical ordered Hospitalist [facility] Advance Care Plan I have confirmed that the patient's Advanced Care Plan is present, code status is documented, or surrogate decision maker is listed in patient medical record.: Yes Medication Reconciliation I have utilized all available resources to obtain, update and review the patients current medications (includes all prescriptions, OTC, herbals, cannabis, and nutritional supplements).: Yes
[2024-09-06] MEDS: DONEPEZIL HCL 10 MG TABLET PO (22:44)
[2024-09-07 04:47] VITALS: BP 151/68; PULSE 84; RESP 20; TEMP 36.6; O2SAT 96
[2024-09-07 05:12] LABS: Basophils Percent Auto 0.6 % (0.2-1.2); Eosinophils Absolute Auto 0.2 K/mm3 (0-0.3); Eosinophils Percent Auto 2.8 % (0-4.4); Hematocrit 42.9 % (37.0-47.0); Hemoglobin 13.8 g/dL (12.0-15.0); Immature Granulocyte Absolute 0.03 K/mm3 (0.00-0.031); Immature Granulocyte Percent A 0.5 % (0-0.5); Lymphocytes Percent Auto 21.4 % (18.3-44.2); Mean Corpuscular HGB Conc 32.2 g/dl (32-36); Mean Corpuscular Hemoglobin 29.9 pg (26-34); Mean Corpuscular Volume 92.9 fl (80-100); Mean Platelet Volume 9.7 fl (7.4-10.4); Monocytes Absolute Auto 0.5 K/mm3 (0.1-0.6); Neutrophils Absolute Auto 4.4 K/mm3 (1.3-6.7); Neutrophils Percent Auto 67.7 % (45.5-73.1); Platelet Count Result 186 k/mm3 (150-375); Red Blood Count 4.62 M/mm3 (4.2-5.4); Red Cell Distribution Width 13.8 % (11.5-14.5); White Blood Count 6.5 K/mm3 (4.5-10.0)
[2024-09-07 05:23] LABS: Alanine Aminotransferase 17 U/L (6-35); Albumin Level 3.6 g/dL (3.5-5.1); Alkaline Phosphatase 69 U/L (38-126); Anion Gap 11 mmol/L (4-12); Aspartate Amino Transferase 17 U/L (14-36); Bilirubin,Total 0.9 mg/dL (0.2-1.3); Blood Urea Nitrogen 19 mg/dL (7-17); Calcium 8.5 mg/dL (8.4-10.2); Carbon Dioxide 19 mmol/L (22-30); Chloride 110 mmol/L (98-107); Estimated CRCL calculation 55 ml/min; Estimated Glomerular Filt Rate > 60; Glucose 149 mg/dL (65-110); Potassium 3.6 mmol/L (3.4-5.0); Sodium 140 mmol/L (137-145)
[2024-09-07] MEDS: VANCOMYCIN HCL 250 MG ORAL CAPSULE PO ×4 (05:31→23:56)
[2024-09-07 07:34] LABS: Glucose Point of Care 153 mg/dl (65-105)
--- NOTE | 2024-09-07 07:50 | P.PNIM_ITS ---
Progress Note: A&P Assessment and Plan (1) Clostridioides difficile infection: Code(s): A49.8 - Other bacterial infections of unspecified site Status: Acute Assessment and Plan: c. diff+ on 07/07/2024 (initial) and today, 09/06 - GI consulted, (Juan) recommended oral vancomycin versus Dificid. - continue oral vancomycin - antiemetics p.r.n. and dicyclomine p.r.n. - daily CBC, leukocytosis resolved - will forego CT of the abdomen/pelvis at this time as the patient does not have abdominal pain or hematochezia. If patient develops abdominal pain, BRB per rectum, or leukocytosis, consider further imaging. - low-fat diet likely discharge tomorrow per GI recommendations (2) Dehydration: Code(s): E86.0 - Dehydration Status: Acute Assessment and Plan: tachycardia resolved, improving, euvolemic - patient mildly tachycardic in the low 100s and hemoglobin mildly elevated compared to prior, suspect some level of dehydration. IV fluid stopped - monitor I&Os (3) Type 2 diabetes mellitus with diabetic neuropathy, unspecified: Code(s): E11.40 - Type 2 diabetes mellitus with diabetic neuropathy, unspecified Status: Chronic Assessment and Plan: A1C 8.3% on 08/11/2024 - hypoglycemia protocol - POC blood glucose ACHS - John Villarreal (TIFFANIE). - continue aspart 8 units t.i.d. WM, Levemir 30 units b.i.d. - correct regimen ordered a.c. HS (4) Essential (primary) hypertension: Code(s): I10 - Essential (primary) hypertension Status: Chronic Assessment and Plan: chronic - continue home Lisinopril 40 mg daily - monitor Plan UA culture does not indicate infection no antibiotics for UTI ordered Diet: Low-fat diet per GI GI Prophylaxis: Pantoprazole p.o. DVT Prophylaxis: SCDs Lines: Peripheral Code Status: Full code Time Spent With Patient Time with patient: 25 - 35 minutes Subjective Date/time seen: 09/07/24 07:50 Interval history: 74 y/o F with PMH of colitis, c. diff, IBS, diabetes, and arthritis presents here with generalized weakness and diarrhea. on 07/07/24 CT revealed colitis extending from the mid transverse to the mid sigmoid colon positive for C diff. patient once again tested positive for C diff started on oral vanc by GI. leukocytosis resolved on a.m. labs, Diarrhea has resolved, patient doing well overall GI would like her to stay for 1 more night. Review of Systems Review of Systems: All systems reviewed & are unremarkable except as noted in HPI and below Exam Narrative: General: well appearing, appears stated age. HEENT: normocephalic, atraumatic. Mucous membranes moist. EOMI, PERRLA, bilateral sclera anicteric, no conjunctival injection. Neck supple without JVD, lymphadenopathy, or bruit. Respiratory: clear to ascultation bilaterally. No rales/rhonic/wheezes. Cardiovascular: Regular rate and rhythm, normal S1-S2 upon ascultation. No murmurs, rubs, or clicks. PMI is nondisplaced, capillary refill less than 3 second. Abdomen: Soft, round, no pulsatile masses, nondistended and nontender. No rebound, no guarding. No CVA tenderness, no hepatosplenomegaly. Bowel sounds present to all four quadrants. No high pitch or tinkling sounds, resonant to percussion. Extremities: No cyanosis, clubbing, or edema present. Pulses are palpable 2/2. Active ROM to all four extremities. Neuro: Alert and orientated x 4. PERRLA. Cranial nerves 2-12 intact without focal deficit. Skin: Warm, dry, and intact, without rash, erythema, or lesion. Psych: pleasant, cooperative, normal speech, normal affect, no hallucinations, no dysarthia Objective Data Vital Signs Vital Signs: Vital Signs - 24 hr 09/06/24 14:57 09/06/24 16:46 09/06/24 17:16 Temperature 97.8 F Pulse Rate 104 H Respiratory Rate 20 Blood Pressure 141/67 H 141/70 H 154/51 H Pulse Oximetry 100 95 98 Oxygen Delivery Room Air 09/06/24 17:31 09/06/24 18:42 09/06/24 18:49 Temperature 97.8 F 98.4 F Pulse Rate 94 91 Respiratory Rate 16 16 Blood Pressure 142/64 H 128/49 L Pulse Oximetry 95 98 98 Oxygen Delivery Room Air 09/06/24 19:58 09/07/24 04:47 Temperature 98.3 F 97.8 F Pulse Rate 93 84 Respiratory Rate 20 20 Blood Pressure 153/76 H 151/68 H Pulse Oximetry 97 96 Oxygen Delivery Intake/Output Intake/Output: Intake & Output 09/04/24 09/05/24 09/06/24 09/07/24 23:59 23:59 23:59 23:59 Intake Total 1000 240 Balance 1000 240 Meds/Results Medications: Active Medications Generic Name Dose Route Start Last Admin Trade Name Freq PRN Reason Stop Dose Admin Acetaminophen 650 mg 09/06/24 18:42 Acetaminophen 325 Mg Tablet PO Q6H PRN Mild Pain (1-3) or Fever Alprazolam 0.25 mg 09/06/24 21:17 Alprazolam (*Crx) 0.25 Mg Tablet PO TID PRN Anxiety Ascorbic Acid 125 mg 09/07/24 09:00 Ascorbic Acid 125 Mg Tablet BY MOUTH DAILY [facility] Aspirin 81 mg 09/07/24 09:00 Aspirin 81 Mg Enteric Tablet PO DAILY [facility] Buspirone HCl 5 mg 09/07/24 09:00 Buspirone Hcl 5 Mg Tablet PO TID [facility] Buspirone HCl 2.5 mg 09/07/24 09:00 Buspirone Hcl 2.5 Mg Tablet PO TID [facility] Dextrose 12.5 gm 09/06/24 21:23 Dextrose 50% 25 Gm/50 Ml Syringe IV PUSH PRN PRN Hypoglycemia Protocol Dicyclomine HCl 10 mg 09/06/24 21:21 Dicyclomine Hcl 10 Mg Capsule PO TID PRN abdominal cramping Donepezil HCl 10 mg 09/06/24 21:30 09/06/24 22:44 Donepezil Hcl 10 Mg Tablet PO 10 mg HS [facility] Administration Duloxetine HCl 60 mg 09/07/24 09:00 Duloxetine Hcl 60 Mg Capsule.Dr PO DAILY [facility] Glucagon 1 mg 09/06/24 21:23 Glucagon For Inj 1 Mg Vial IM PRN PRN Hypoglycemia Protocol Glucose 15 gm 09/06/24 21:23 Glucose Oral Gel 15 Gm Of Glucse In 37.5 Gm Tube PO PRN PRN Hypoglycemia Protocol Dextrose 1,000 mls @ 100 mls/hr 09/06/24 21:23 Dextrose 5% 1,000 Ml IVPB PRN PRN Hypoglycemia Protocol Insulin Aspart 8 units 09/07/24 08:00 Insulin Aspart (*Bkc) 100 Units/Ml SUB-Q TIDWM [facility] Insulin Aspart 1 - 3 units 09/07/24 21:00 Insulin Aspart (*Bkc) 100 Units/Ml SUB-Q HS [facility] Protocol Insulin Aspart 3 - 6 units 09/07/24 08:00 Insulin Aspart (*Bkc) 100 Units/Ml SUB-Q TIDWM [facility] Protocol Insulin Glargine 30 units 09/07/24 09:00 Insulin Glargine (*Bkc) 100 Units/Ml SUB-Q BID [facility] Lisinopril 40 mg 09/07/24 09:00 Lisinopril 20 Mg Tablet PO DAILY [facility] Miscellaneous Information 0 each 09/06/24 22:00 Vibegron [Gemtesa] 75 Mg Tablet- Nonformulary. Please Obtain A Home Supply Or Hold While I XX 10/06/24 21:59 CLARIFY [facility] Biotin 1,000 Mcg 1 each 09/07/24 09:00 Tablet,Chewable XX 09/08/24 08:59 DAILY [facility] Non-Formulary Medication 2 mg 09/13/24 09:00 Semaglutide [Ozempic] SUB-Q 10/13/24 08:59 WEEKLY [facility] Turmeric 400 Mg 1 each 09/07/24 09:00 Capsule XX 09/08/24 08:59 DAILY [facility] Non-Formulary Medication 75 mg 09/07/24 09:00 Vibegron [Gemtesa] PO 10/07/24 08:59 DAILY [facility] Pantoprazole Sodium 40 mg 09/07/24 09:00 Pantoprazole 40 Mg Tablet PO QAM [facility] Rosuvastatin Calcium 40 mg 09/07/24 09:00 Rosuvastatin 20 Mg Tablet PO DAILY [facility] Vancomycin HCl 250 mg 09/06/24 18:00 09/07/24 05:31 Vancomycin Hcl 250 Mg Oral Capsule PO 250 mg Q6HR [facility] Administration Vitamin B Complex 1 cap 09/07/24 09:00 Vitamin B Complex Capsule PO DAILY [facility] Vitamin D 1,000 units 09/07/24 09:00 Cholecalciferol 1,000 Units Tablet PO DAILY [facility] Labs Labs: Laboratory Results - last 24 hr 09/06/24 09/06/24 09/06/24 15:18 15:19 16:42 WBC 10.6 H RBC 5.20 Hgb 15.7 H D Hct 46.6 MCV 89.6 MCH 30.2 MCHC 33.7 RDW 13.8 Plt Count 219 D MPV 9.7 Immature Gran % (Auto) 0.3 Neut % (Auto) 74.2 H Lymph % (Auto) 18.6 [place] % (Auto) 5.5 Eos % (Auto) 1.1 Baso % (Auto) 0.3 Lymph # (Auto) 1.97 [place] # (Auto) 0.6 Eos # (Auto) 0.1 Baso # (Auto) 0.0 Abs Immat Gran (auto) 0.03 Absolute Neuts (auto) 7.9 H Absolute Nucleated RBC 0.000 Nucleated RBC % 0.0 Sodium 137 Potassium 3.6 Chloride 106 Carbon Dioxide 16 L Anion Gap 15 H BUN 24 H Creatinine 0.82 Estim Creat Clear Calc 49 Estimated GFR > 60 Glucose 205 H POC Capillary Glucose Calcium 9.2 Total Bilirubin 0.8 AST 21 ALT 20 Alkaline Phosphatase 81 Total Protein 7.0 Albumin 4.5 Lipase 141 Urine Color Yellow Urine Appearance Turbid H Urine pH 5.5 Ur Specific [place] 1.022 Urine Protein 2+ H Urine Glucose (UA) Negative Urine Ketones Trace H Ur Blood (Man) Negative Urine Nitrate Negative Urine Bilirubin Negative Urine Urobilinogen 0.2 Add Ur Microanalysis Reviewed Leukocyte Esterase Rfl 3+ H Urine RBC 3-5 H Urine WBC 21-50 H Ur Squamous Epith Cells Many H Urine Bacteria 4+ H Urine Casts 6-10 Hyaline Casts 1-2 Urine Mucus Present C. difficile (PCR) Positive A* 09/07/24 09/07/24 04:56 07:29 WBC 6.5 RBC 4.62 Hgb 13.8 Hct 42.9 MCV 92.9 MCH 29.9 MCHC 32.2 RDW 13.8 Plt Count 186 MPV 9.7 Immature Gran % (Auto) 0.5 Neut % (Auto) 67.7 Lymph % (Auto) 21.4 [place] % (Auto) 7.0 Eos % (Auto) 2.8 Baso % (Auto) 0.6 Lymph # (Auto) 1.40 [place] # (Auto) 0.5 Eos # (Auto) 0.2 Baso # (Auto) 0.0 Abs Immat Gran (auto) 0.03 Absolute Neuts (auto) 4.4 Absolute Nucleated RBC 0.000 Nucleated RBC % 0.0 Sodium 140 Potassium 3.6 Chloride 110 H Carbon Dioxide 19 L Anion Gap 11 BUN 19 H Creatinine 0.73 Estim Creat Clear Calc 55 Estimated GFR > 60 Glucose 149 H POC Capillary Glucose 153 H Calcium 8.5 Total Bilirubin 0.9 AST 17 ALT 17 Alkaline Phosphatase 69 Total Protein 6.0 L Albumin 3.6 Lipase Urine Color Urine Appearance Urine pH Ur Specific [place] Urine Protein Urine Glucose (UA) Urine Ketones Ur Blood (Man) Urine Nitrate Urine Bilirubin Urine Urobilinogen Add Ur Microanalysis Leukocyte Esterase Rfl Urine RBC Urine WBC Ur Squamous Epith Cells Urine Bacteria Urine Casts Hyaline Casts Urine Mucus C. difficile (PCR) Quality VTE Prophylaxis VTE prophylaxis: mechanical ordered Hospitalist MIPS Advance Care Plan I have confirmed that the patient's Advanced Care Plan is present, code status is documented, or surrogate decision maker is listed in patient medical record.: Yes Medication Reconciliation I have utilized all available resources to obtain, update and review the patients current medications (includes all prescriptions, OTC, herbals, cannabis, and nutritional supplements).: Yes
[2024-09-07] MEDS: lisinopriL 20 MG TABLET 40 MG PO (08:44)
[2024-09-07] MEDS: ROSUVASTATIN 20 MG TABLET 40 MG PO (08:44)
[2024-09-07] MEDS: CHOLECALCIFEROL 1,000 UNITS TABLET 1000 UNITS PO (08:45)
[2024-09-07] MEDS: PANTOPRAZOLE 40 MG TABLET PO (08:45)
[2024-09-07] MEDS: VITAMIN B COMPLEX CAPSULE 1 CAP PO (08:45)
[2024-09-07] MEDS: ASPIRIN 81 MG ENTERIC TABLET PO (08:45)
[2024-09-07] MEDS: INSULIN GLARGINE (*BKC) 100 UNITS/ML 30 UNITS SUB-Q ×2 (08:45→21:05)
[2024-09-07] MEDS: busPIRone HCL 2.5 MG TABLET PO ×3 (08:45→17:18)
[2024-09-07] MEDS: DULoxetine HCL 60 MG CAPSULE.DR PO (08:45)
[2024-09-07] MEDS: busPIRone HCL 5 MG TABLET PO ×3 (08:45→17:18)
[2024-09-07 11:28] LABS: Glucose Point of Care 144 mg/dl (65-105)
[2024-09-07 14:00] VITALS: BP 147/64; PULSE 75; RESP 16; TEMP 36.3; O2SAT 100
--- NOTE | 2024-09-07 14:25 | P.PNGI_ITS ---
Progress Note: A&P Assessment and Plan (1) Gastric peptic ulcer: Code(s): K25.9 - Gastric ulcer, unspecified as acute or chronic, without hemorrhage or perforation Status: Acute Assessment and Plan: The patient can have a regular diet tonight. Intravenous pantoprazole was discontinued in light of lack of acute bleeding or stigmata of imminent bleeding. Pantoprazole 40 mg orally every day should be prescribed permanently and NSAIDs are absolutely contraindicated. The biopsies taken for the purpose of ruling out H pylori are pending, I will notify patient if positive to receive appropriate treatment. The patient can be safely discharged either tonight or tomorrow. Follow-up with GI clinic in 2 months. (2) Hiatal hernia: Code(s): K44.9 - Diaphragmatic hernia without obstruction or gangrene Status: Acute (3) Erosive esophagitis: Code(s): K22.10 - Ulcer of esophagus without bleeding Status: Acute Subjective Date/time seen: 09/07/24 14:25 Interval history: See endoscopy report. No acute bleeding. There is evidence of severe damage, ulcers, caused by NSAIDs and a large hiatal hernia inducing GERD, aggravated by NSAIDs. Objective Data Vital Signs Vital Signs: Vital Signs - 24 hr 09/06/24 14:57 09/06/24 16:46 09/06/24 17:16 Temperature 97.8 F Pulse Rate 104 H Respiratory Rate 20 Blood Pressure 141/67 H 141/70 H 154/51 H Pulse Oximetry 100 95 98 Oxygen Delivery Room Air 09/06/24 17:31 09/06/24 18:42 09/06/24 18:49 Temperature 97.8 F 98.4 F Pulse Rate 94 91 Respiratory Rate 16 16 Blood Pressure 142/64 H 128/49 L Pulse Oximetry 95 98 98 Oxygen Delivery Room Air 09/06/24 19:58 09/07/24 04:47 09/07/24 08:45 Temperature 98.3 F 97.8 F Pulse Rate 93 84 Respiratory Rate 20 20 Blood Pressure 153/76 H 151/68 H Pulse Oximetry 97 96 Oxygen Delivery Room Air 09/07/24 14:00 Temperature 97.3 F L Pulse Rate 75 Respiratory Rate 16 Blood Pressure 147/64 H Pulse Oximetry 100 Oxygen Delivery Intake/Output Intake/Output: Intake & Output 09/04/24 09/05/24 09/06/24 09/07/24 23:59 23:59 23:59 23:59 Intake Total 1000 840 Balance 1000 840 Meds/Results Medications: Active Medications Generic Name Dose Route Start Last Admin Trade Name Janessa PRN Reason Stop Dose Admin Acetaminophen 650 mg 09/06/24 18:42 Acetaminophen 325 Mg Tablet PO Q6H PRN Mild Pain (1-3) or Fever Alprazolam 0.25 mg 09/06/24 21:17 Alprazolam (*Crx) 0.25 Mg Tablet PO TID PRN Anxiety Ascorbic Acid 125 mg 09/07/24 09:00 09/07/24 08:46 Ascorbic Acid 125 Mg Tablet BY MOUTH Not Given DAILY [facility] Aspirin 81 mg 09/07/24 09:00 09/07/24 08:45 Aspirin 81 Mg Enteric Tablet PO 81 mg DAILY [facility] Administration Buspirone HCl 5 mg 09/07/24 09:00 09/07/24 13:16 Buspirone Hcl 5 Mg Tablet PO 5 mg TID [facility] Administration Buspirone HCl 2.5 mg 09/07/24 09:00 09/07/24 13:16 Buspirone Hcl 2.5 Mg Tablet PO 2.5 mg TID [facility] Administration Dextrose 12.5 gm 09/06/24 21:23 Dextrose 50% 25 Gm/50 Ml Syringe IV PUSH PRN PRN Hypoglycemia Protocol Dicyclomine HCl 10 mg 09/06/24 21:21 Dicyclomine Hcl 10 Mg Capsule PO TID PRN abdominal cramping Donepezil HCl 10 mg 09/06/24 21:30 09/06/24 22:44 Donepezil Hcl 10 Mg Tablet PO 10 mg HS [facility] Administration Duloxetine HCl 60 mg 09/07/24 09:00 09/07/24 08:45 Duloxetine Hcl 60 Mg Capsule. PO 60 mg DAILY [facility] Administration Glucagon 1 mg 09/06/24 21:23 Glucagon For Inj 1 Mg Vial IM PRN PRN Hypoglycemia Protocol Glucose 15 gm 09/06/24 21:23 Glucose Oral Gel 15 Gm Of Glucse In 37.5 Gm Tube PO PRN PRN Hypoglycemia Protocol Dextrose 1,000 mls @ 100 mls/hr 09/06/24 21:23 Dextrose 5% 1,000 Ml IVPB PRN PRN Hypoglycemia Protocol Insulin Aspart 1 - 3 units 09/07/24 21:00 Insulin Aspart (*Bkc) 100 Units/Ml SUB-Q HS [facility] Protocol Insulin Aspart 3 - 6 units 09/07/24 08:00 09/07/24 11:30 Insulin Aspart (*Bkc) 100 Units/Ml SUB-Q Not Given TIDWM [facility] Protocol Insulin Glargine 30 units 09/07/24 09:00 09/07/24 08:45 Insulin Glargine (*Bkc) 100 Units/Ml SUB-Q 30 units BID [facility] Administration Lisinopril 40 mg 09/07/24 09:00 09/07/24 08:44 Lisinopril 20 Mg Tablet PO 40 mg DAILY [facility] Administration Non-Formulary Medication 2 mg 09/13/24 09:00 Semaglutide [Ozempic] SUB-Q 10/13/24 08:59 WEEKLY [facility] Pantoprazole Sodium 40 mg 09/07/24 09:00 09/07/24 08:45 Pantoprazole 40 Mg Tablet PO 40 mg QAM [facility] Administration Rosuvastatin Calcium 40 mg 09/07/24 09:00 09/07/24 08:44 Rosuvastatin 20 Mg Tablet PO 40 mg DAILY [facility] Administration Vancomycin HCl 250 mg 09/06/24 18:00 09/07/24 13:16 Vancomycin Hcl 250 Mg Oral Capsule PO 250 mg Q6HR [facility] Administration Vitamin B Complex 1 cap 09/07/24 09:00 09/07/24 08:45 Vitamin B Complex Capsule PO 1 cap DAILY [facility] Administration Vitamin D 1,000 units 09/07/24 09:00 09/07/24 08:45 Cholecalciferol 1,000 Units Tablet PO 1,000 units DAILY [facility] Administration Labs Labs: Laboratory Results - last 24 hr 09/06/24 09/06/24 09/06/24 15:18 15:19 16:42 WBC 10.6 H RBC 5.20 Hgb 15.7 H D Hct 46.6 MCV 89.6 MCH 30.2 MCHC 33.7 RDW 13.8 Plt Count 219 D MPV 9.7 Immature Gran % (Auto) 0.3 Neut % (Auto) 74.2 H Lymph % (Auto) 18.6 [place] % (Auto) 5.5 Eos % (Auto) 1.1 Baso % (Auto) 0.3 Lymph # (Auto) 1.97 [place] # (Auto) 0.6 Eos # (Auto) 0.1 Baso # (Auto) 0.0 Abs Immat Gran (auto) 0.03 Absolute Neuts (auto) 7.9 H Absolute Nucleated RBC 0.000 Nucleated RBC % 0.0 Sodium 137 Potassium 3.6 Chloride 106 Carbon Dioxide 16 L Anion Gap 15 H BUN 24 H Creatinine 0.82 Estim Creat Clear Calc 49 Estimated GFR > 60 Glucose 205 H POC Capillary Glucose Calcium 9.2 Total Bilirubin 0.8 AST 21 ALT 20 Alkaline Phosphatase 81 Total Protein 7.0 Albumin 4.5 Lipase 141 Urine Color Yellow Urine Appearance Turbid H Urine pH 5.5 Ur Specific [place] 1.022 Urine Protein 2+ H Urine Glucose (UA) Negative Urine Ketones Trace H Ur Blood (Man) Negative Urine Nitrate Negative Urine Bilirubin Negative Urine Urobilinogen 0.2 Add Ur Microanalysis Reviewed Leukocyte Esterase Rfl 3+ H Urine RBC 3-5 H Urine WBC 21-50 H Ur Squamous Epith Cells Many H Urine Bacteria 4+ H Urine Casts 6-10 Hyaline Casts 1-2 Urine Mucus Present C. difficile (PCR) Positive A* 09/07/24 09/07/24 09/07/24 04:56 07:29 11:26 WBC 6.5 RBC 4.62 Hgb 13.8 Hct 42.9 MCV 92.9 MCH 29.9 MCHC 32.2 RDW 13.8 Plt Count 186 MPV 9.7 Immature Gran % (Auto) 0.5 Neut % (Auto) 67.7 Lymph % (Auto) 21.4 [place] % (Auto) 7.0 Eos % (Auto) 2.8 Baso % (Auto) 0.6 Lymph # (Auto) 1.40 [place] # (Auto) 0.5 Eos # (Auto) 0.2 Baso # (Auto) 0.0 Abs Immat Gran (auto) 0.03 Absolute Neuts (auto) 4.4 Absolute Nucleated RBC 0.000 Nucleated RBC % 0.0 Sodium 140 Potassium 3.6 Chloride 110 H Carbon Dioxide 19 L Anion Gap 11 BUN 19 H Creatinine 0.73 Estim Creat Clear Calc 55 Estimated GFR > 60 Glucose 149 H POC Capillary Glucose 153 H 144 H Calcium 8.5 Total Bilirubin 0.9 AST 17 ALT 17 Alkaline Phosphatase 69 Total Protein 6.0 L Albumin 3.6 Lipase Urine Color Urine Appearance Urine pH Ur Specific [place] Urine Protein Urine Glucose (UA) Urine Ketones Ur Blood (Man) Urine Nitrate Urine Bilirubin Urine Urobilinogen Add Ur Microanalysis Leukocyte Esterase Rfl Urine RBC Urine WBC Ur Squamous Epith Cells Urine Bacteria Urine Casts Hyaline Casts Urine Mucus C. difficile (PCR)
[2024-09-07 14:48] VITALS: O2SAT 98
[2024-09-07] MEDS: ACETAMINOPHEN 325 MG TABLET 650 MG PO (17:18)
[2024-09-07 17:48] LABS: Glucose Point of Care 89 mg/dl (65-105)
--- NOTE | 2024-09-07 18:22 | WPDGICN ---
Assessment and Plan Assessment and plan (1) Clostridioides difficile infection: Code(s): A49.8 - Other bacterial infections of unspecified site Status: Acute Assessment and Plan: The patient has experienced a recurrence of C diff infection. However, she is currently asymptomatic and demonstrating an early positive response to the vancomycin regimen. If her clinical improvement continues, she can be discharged home tomorrow to complete a 10-day course of vancomycin at the same dosage. Given her history of recurrence, Vowst (fecal microbiota spores) is a recommended consideration for future recurrences, consistent with current guidelines. Outpatient follow-up with our clinic is advised post-discharge. GI Consult Note Consult date/time: 09/07/24 18:22 HPI: Mildred Grace is a 74 year old female With a history of diabetes, who recently completed treatment for C difficile last June, with fidaxomicin. She was doing well until approximately 36 hours ago when she started to have profuse watery diarrhea, approximately 6-7 bowel movements per day. She came to the emergency room and her admission was decided for observation. She denies abdominal pain, fever or rectal bleeding. Vancomycin 250 mg every 6 hours was started last night. This morning she did not report further diarrheal episodes. Review of Systems Review of Systems: All systems reviewed & are unremarkable except as noted in HPI and below PMFSH Past Medical History Medical History Shingles Gout Overactive bladder Coronary artery disease Colitis Mixed hyperlipidemia Frequent urination Diabetes Arthritis IBS (irritable bowel syndrome) Fatigue Abdominal pain Diarrhea ACL tear Tear of MCL (medial collateral ligament) of knee Surgical History Surgical History History of tubal ligation History of total knee arthroplasty Right History of cholecystectomy H/O: hysterectomy Total hysterectomy, ovaries and uterus precancerous Family History Family History Mother Hypertension Cerebrovascular accident Family history of diabetes mellitus in first degree relative Family history of coronary artery disease Grandparent Family history of lung cancer Family history of coronary artery disease Diabetes mellitus Father Cancer Aplastic anemia Sibling Diabetes mellitus Heart disease Other Family history of arthritis Family history of gout Family history of malignant neoplasm Social History Social History Smoking packs per day: 1 Smoking cigarettes per day: 20.0 Years smoked: 45 Smoking pack-years: 45.00 Smoking status: Former smoker Alcohol intake: never Alcohol use details: social Substance use: never Substance use type: does not use Do You Feel Safe in your Home?: Yes Lack of Transportation: No Lack of Food: Never True Current Housing: I Have Housing Concerned About Future Housing: No Difficulty Paying Gas/Electric Bills: No Difficulty Paying for Meds: No Currently Unemployed: No Education: High School Diploma/GED Difficulty w/ Childcare or Family Care: No Living arrangements: with family Occupation/Education: retired Gender identity (if verbalized by the patient): Female Spiritual care concerns: No Meds Home Medications and Allergies Home Medications ?Medication ?Instructions ?Recorded ?Confirmed ?Type aspirin 81 mg tablet,delayed 81 mg PO DAILY 10/13/19 09/06/24 History release (Adult Low Dose Aspirin) buspirone 7.5 mg tablet 7.5 mg PO TID 02/02/23 09/06/24 History clopidogrel 75 mg tablet 75 mg PO DAILY 02/02/23 09/06/24 History duloxetine 60 mg capsule,delayed 60 mg PO DAILY 02/02/23 09/06/24 History release insulin aspart U-100 100 unit/mL 8 unit subcut TIDWM 02/02/23 09/06/24 History (3 mL) subcutaneous pen insulin detemir U-100 100 unit/mL 30 unit subcut BID 02/02/23 09/06/24 History (3 mL) subcutaneous pen (Levemir FlexPen) lisinopril 40 mg tablet 40 mg PO DAILY 02/02/23 09/06/24 History semaglutide 1 mg/dose (4 mg/3 mL) 2 mg subcut WEEKLY 02/02/23 09/06/24 History subcutaneous pen injector (Ozempic) alprazolam 0.25 mg tablet 0.25 mg PO TID PRN Anxiety 03/28/24 09/06/24 History biotin 1,000 mcg chewable tablet 1,000 mcg PO DAILY 03/28/24 09/06/24 History cholecalciferol (vitamin D3) 25 25 mcg PO DAILY 03/28/24 09/06/24 History mcg (1,000 unit) tablet (Vitamin D3) donepezil 10 mg tablet 10 mg PO HS 03/28/24 09/06/24 History rosuvastatin 40 mg tablet 40 mg PO DAILY 03/28/24 09/06/24 History ascorbic acid (vitamin C) 100 mg 100 mg PO DAILY 07/07/24 09/06/24 History tablet (Vitamin C) turmeric 400 mg capsule 400 mg PO DAILY 07/07/24 09/06/24 History vitamin B complex 1 tablet PO DAILY 07/07/24 09/06/24 History vibegron 75 mg tablet (Gemtesa) 75 mg PO DAILY #90 tabs 07/31/24 09/06/24 Rx dicyclomine 10 mg capsule 10 mg PO TID PRN abdominal cramping 09/06/24 09/06/24 History Allergies Allergy/AdvReac Type Severity Reaction Status Date / Time No Known Allergies Allergy Verified 09/06/24 14:37 Vital Signs Vital Signs - 24 hr 09/06/24 18:42 09/06/24 18:49 09/06/24 19:58 Temperature 98.4 F 98.3 F Pulse Rate 91 93 Respiratory Rate 16 20 Blood Pressure 128/49 L 153/76 H Pulse Oximetry 98 98 97 Oxygen Delivery Room Air 09/07/24 04:47 09/07/24 08:45 09/07/24 14:00 Temperature 97.8 F 97.3 F L Pulse Rate 84 75 Respiratory Rate 20 16 Blood Pressure 151/68 H 147/64 H Pulse Oximetry 96 100 Oxygen Delivery Room Air 09/07/24 14:48 Temperature Pulse Rate Respiratory Rate Blood Pressure Pulse Oximetry 98 Oxygen Delivery Room Air Exam Narrative: General: well appearing, appears stated age. HEENT: normocephalic, atraumatic. Mucous membranes moist. EOMI, PERRLA, bilateral sclera anicteric, no conjunctival injection. Neck supple without JVD, lymphadenopathy, or bruit. Respiratory: clear to ascultation bilaterally. No rales/rhonic/wheezes. Cardiovascular: Regular rate and rhythm, normal S1-S2 upon ascultation. No murmurs, rubs, or clicks. PMI is nondisplaced, capillary refill less than 3 second. Abdomen: Soft, round, no pulsatile masses, nondistended and nontender. No rebound, no guarding. No CVA tenderness, no hepatosplenomegaly. Bowel sounds present to all four quadrants. No high pitch or tinkling sounds, resonant to percussion. Extremities: No cyanosis, clubbing, or edema present. Pulses are palpable 2/2. Active ROM to all four extremities. Neuro: Alert and orientated x 4. PERRLA. Cranial nerves 2-12 intact without focal deficit. Skin: Warm, dry, and intact, without rash, erythema, or lesion. Psych: pleasant, cooperative, normal speech, normal affect, no hallucinations, no dysarthia Results Labs 09/07/24 04:56 09/07/24 04:56 Labs: Short CBC 09/07/24 Range/Units 04:56 WBC 6.5 (4.5-10.0) K/mm3 Hgb 13.8 (12.0-15.0) g/dL Hct 42.9 (37.0-47.0) % Plt Count 186 (150-375) k/mm3 BMP 09/07/24 04:56 Sodium 140 Potassium 3.6 Chloride 110 H Carbon Dioxide 19 L BUN 19 H Creatinine 0.73 Glucose 149 H Calcium 8.5 Liver Function 09/07/24 Range/Units 04:56 Total Bilirubin 0.9 (0.2-1.3) mg/dL AST 17 (14-36) U/L ALT 17 (6-35) U/L Alkaline Phosphatase 69 (38-126) U/L Albumin 3.6 (3.5-5.1) g/dL
[2024-09-07 20:08] VITALS: BP 137/56; PULSE 73; RESP 18; TEMP 36.5; O2SAT 99
[2024-09-07 21:03] LABS: Glucose Point of Care 142 mg/dl (65-105)
[2024-09-07] MEDS: DONEPEZIL HCL 10 MG TABLET PO (21:05)
[2024-09-08 04:22] VITALS: BP 181/69; PULSE 80; RESP 20; TEMP 36.5; O2SAT 100
[2024-09-08] MEDS: VANCOMYCIN HCL 250 MG ORAL CAPSULE PO (05:05)
[2024-09-08 07:58] LABS: Glucose Point of Care 138 mg/dl (65-105)
[2024-09-08] MEDS: ASCORBIC ACID 125 MG TABLET BY MOUTH (08:37)
[2024-09-08] MEDS: VITAMIN B COMPLEX CAPSULE 1 CAP PO (08:38)
[2024-09-08] MEDS: ASPIRIN 81 MG ENTERIC TABLET PO (08:38)
[2024-09-08] MEDS: busPIRone HCL 5 MG TABLET PO (08:38)
[2024-09-08] MEDS: PANTOPRAZOLE 40 MG TABLET PO (08:38)
[2024-09-08] MEDS: lisinopriL 20 MG TABLET 40 MG PO (08:38)
[2024-09-08] MEDS: ROSUVASTATIN 20 MG TABLET 40 MG PO (08:38)
[2024-09-08] MEDS: INSULIN GLARGINE (*BKC) 100 UNITS/ML 30 UNITS SUB-Q (08:38)
[2024-09-08] MEDS: CHOLECALCIFEROL 1,000 UNITS TABLET 1000 UNITS PO (08:38)
[2024-09-08] MEDS: busPIRone HCL 2.5 MG TABLET PO (08:38)
[2024-09-08] MEDS: DULoxetine HCL 60 MG CAPSULE.DR PO (08:38)
--- NOTE | 2024-09-08 10:52 | P.DS_ITS ---
DS: Admitting Diagnosis Discharge Date 09/08/24 Admitting Diagnosis Generalized Weakness DS: Discharge Diagnosis Discharge Diagnosis (1) Gastric peptic ulcer: Code(s): K25.9 - Gastric ulcer, unspecified as acute or chronic, without hemorrhage or perforation Status: Acute (2) C. difficile colitis: Code(s): A04.72 - Enterocolitis due to Clostridium difficile, not specified as recurrent Status: Acute DS: Summary Hospital Course Hospital Course: 74 y/o F with PMH of colitis, c. diff, IBS, diabetes, and arthritis presents here with generalized weakness and diarrhea. The patient presents here from home for further evaluation of generalized weakness and diarrhea. She was originally placed on Augmentin back in May of 2024 for a upper respiratory infection x2 weeks following COVID. She developed hematochezia, vomiting, and diarrhea on 07/07/2024. CT at that time revealed colitis extending from the mid transverse to the mid sigmoid colon. She was started on Cipro and Flagyl for the colitis. She tested positive for C diff. and she was started on Dificid. During this admission she underwent a colonoscopy which showed a 3 mm hyperplastic polyp (excised) and a few small internal hemorrhoids in the rectum At discharge she was continued on Dificid and she was transition to oral Flagyl. She then had follow-up with GI on 07/27/2024, at that time she reported diarrhea had resolved but she continued to have ongoing abdominal cramping which was felt to be residual from previous C diff. Since then she reports the abdominal cramping and diarrhea resolved for a few weeks (close to a month). Now reporting generalized weakness and recurrence of diarrhea starting in the last 24 hours. Estimates she has gone 20+ times in the last 24 hours. Denies associated hematochezia, abdominal pain, fever, chills, body aches. Initial VS at presentation: 97.8? F, HR 104, RR 20, 141/67, and 100% on RA. ED workup showed: WBC 10.6, hemoglobin 15.7 (14.7 on 08/11/2024), creatinine 0.82 and GFR >60, glucose 205, no abnormality of LFTs or lipase, and UA suspicious for UTI (may be contaminant, many epithelial cells). +c. diff on 09/06 GI was consulted and C diff was positive and due to recurrent of C diff she was started on Vanc 250mg Po q 6. Patient noted diarrhea has resolved and patient discharged today on 9 more days of PO Vanc. F/u with PCP in 3-5 days F/u with GI as instructed Time Spent with Patient Time attestation: Total time spent providing and/or coordinating discharge services: DS: Data Data Completed and Pending Labs on day of discharge: Labs from last 24 hours 09/08/24 09/07/24 09/07/24 07:37 20:13 17:22 POC Capillary Glucose 138 H 142 H 89 09/07/24 11:26 POC Capillary Glucose 144 H Discharge Plan Discharge Attending physician on discharge: Vivian Ceballos Discharging Clinician: Vivian Ceballos Anticipated Discharge Date/Time: 09/08/24 10:33 Patient Disposition: Home, Self-Care Activity: as tolerated Diet: as tolerated and diabetic Patient Instructions: Antibiotic Form Patient Language: Swedish Stand Alone Forms: General Discharge Information Follow-up/Referrals: Horacio Ma MD [Primary Care Provider] - (F/u with PCP in 3-5 days ) Discharge Medications: New pantoprazole 40 mg Tablet,Delayed Release (Dr/Ec) 40 mg PO QAM 30 Days Qty: 30 1RF vancomycin 250 mg Capsule 250 mg PO Q6HR 9 Days Qty: 36 0RF Continued aspirin [Adult Low Dose Aspirin] 81 mg tablet,delayed release (DR/EC) 81 mg PO DAILY Vitamin C 100 mg tablet 100 mg PO DAILY vitamin B complex Tablet 1 tablet PO DAILY turmeric 400 mg capsule 400 mg PO DAILY dicyclomine 10 mg capsule 10 mg PO TID PRN (Reason: abdominal cramping) lisinopril 40 mg tablet 40 mg PO DAILY insulin aspart U-100 100 unit/mL (3 mL) insulin pen 8 unit SUBCUT TIDWM Patient Comments: USES SLIDING SCALE FOR DOSAGE Levemir FlexPen 100 unit/mL (3 mL) insulin pen 30 unit SUBCUT BID clopidogrel 75 mg tablet 75 mg PO DAILY Rx Instructions: TAKE 1 TABLET EVERY DAY buspirone 7.5 mg tablet 7.5 mg PO TID Patient Comments: THINKS SHE ONLY TAKES ONCE A DAY Rx Instructions: TAKE 1 TABLET TID DAILY duloxetine 60 mg capsule,delayed release(DR/EC) 60 mg PO DAILY Rx Instructions: TAKE 1 CAPSULE EVERY DAY Ozempic 1 mg/dose (4 mg/3 mL) pen injector 2 mg SUBCUT WEEKLY donepezil 10 mg tablet 10 mg PO HS alprazolam 0.25 mg Tablet 0.25 mg PO TID PRN (Reason: Anxiety) rosuvastatin 40 mg tablet 40 mg PO DAILY cholecalciferol (vitamin D3) [Vitamin D3] 25 mcg (1,000 unit) Tablet 25 mcg PO DAILY biotin 1,000 mcg Tablet,Chewable 1,000 mcg PO DAILY Gemtesa 75 mg tablet 75 mg PO DAILY Qty: 90 1RF Date of admission: 09/07/24 12:13 Primary Care Provider: Horacio Ma Admitting Provider: Drew Caldwell Attending physician on admission: Drew Caldwell Condition: Stable
== END 2024-09-08 11:40 | disposition home or self-care (01) | DRG 373 ==
LOC: ANHED 17:07 → ANH2MED 18:05
PROVIDERS: Student in an Organized Health Care Education/Training Program; Admitting Provider Internal Medicine; Emergency Provider Emergency Medicine; PCP Family Medicine; Visit Provider Internal Medicine
DX: A04.71 Enterocolitis due to Clostridium difficile, recurrent (principal); E86.0 Dehydration; K25.9 Gastric ulcer, unspecified as acute or chronic, without hemorrhage or perforation; M19.90 Unspecified osteoarthritis, unspecified site; E11.42 Type 2 diabetes mellitus with diabetic polyneuropathy; I25.10 Atherosclerotic heart disease of native coronary artery without angina pectoris; N32.81 Overactive bladder; I10 Essential (primary) hypertension; E78.2 Mixed hyperlipidemia; K58.9 Irritable bowel syndrome, unspecified; Z96.651 Presence of right artificial knee joint; Z90.49 Acquired absence of other specified parts of digestive tract; Z90.710 Acquired absence of both cervix and uterus; Z87.891 Personal history of nicotine dependence
CPT/HCPCS: 36415; 80053; 81001; 82948; 83690; 85025; 87493; 96360; 96361; 99285; A9270; G0378; J1815; J7030

== ENCOUNTER 2024-10-12 08:28 | Outpatient (CLI) | payer MEDICARE, OTHER, SELFPAY ==
--- NOTE | ~2024-10-12 | US_ITS ---
EXAMINATION: US art doppler w press LE LT DATE: 10/12/2024 09:52 INDICATION: Peripheral vascular disease TECHNIQUE: Segmental pressures and plethysmographic and Doppler waveforms of the brachial and lower e xtremity arteries were obtained. COMPARISON: None. FINDINGS: Right and left brachial artery pressures of 173 mm Hg and 158 mm Hg, respectively, are concordant (no rmal difference <= 30 mmHg). The right ankle-brachial index (DIAZ) is 0.99 (normal >= 0.9-1). The right great toe-brachial index (T BI) is 0.64 (normal >= 0.6-0.8). Arterial waveforms are biphasic with brisk systolic upstrokes at the right posterior tibial and dorsalis pedis arteries.. The left DIAZ is 0.94. The left TBI is 0.44. Arterial waveforms are biphasic with brisk systolic upstr okes at the left posterior tibial and dorsalis pedis arteries. IMPRESSION: 1. 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 Reviewed, dictated and finalized at location A. IMPRESSION: 1. 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
--- OUTSIDE RECORDS SUMMARY | 2024-10-12 08:31 | XMS_ITS | Clinical Summary ---
Author Organization [facility] [place] [address] Address [address] [place] [address] Care Team Providers Care Bartender Helper Name Role Phone Chang Ward MD Unavailable [phone] Horacio Ma MD Primary Care Provider [phone] Allergies Active Allergy Reactions Criticality Noted Date Comments Niacin Other (See comments) Low Reaction: Leg cramps, Pravastatin Itching Low Simvastatin Other (See comments) Low Reaction: Leg cramps, Medications cholecalciferol (VITAMIN D-3) 1,000 unit tablet Take 1 tablet (1,000 Units total) by mouth daily Active biotin 1 mg tablet Take 1 tablet (1,000 mcg total) by mouth daily 6 Active aspirin 81 mg chewable tablet Take 1 tablet (81 mg total) by mouth daily 7 Active ALPRAZolam (XANAX) 0.25 mg tablet Take 1 tablet (0.25 mg total) by mouth 3 (three) times a day as needed for anxiety (Do not take with hydorocdone.) 45 tablet 2 Active Droplet Pen Needle 31 gauge x 316 needle 3 Active pen needle, diabetic (BD Ultra-Fine Mini Pen Needle) 31 gauge x 316 needle USE TO TAKE INSULIN 4 X DAY 200 each 11 3 Active donepeziL (ARICEPT) 10 mg tablet Take 1 tablet (10 mg total) by mouth nightly 3 Active polyethylene glycol (MIRALAX) 17 gram/dose powder Take 17 g by mouth 3 (three) times a day as needed (Constipation) 1-3 times per day as needed for constipation (oxycodone causes constipation) 1700 g 3 Active blood-glucose sensor (Dexcom G7 Sensor) device Active insulin aspart (NovoLOG) 100 unit/mL (3 mL) pen for injection Inject 8 Units under the skin 3 (three) times a day before meals 15 mL 2 3 Active oxyBUTYnin XL (DITROPAN-XL) 10 mg 24 hr tablet Take 1 tablet (10 mg total) by mouth daily 3 Active insulin glargine 100 unit/mL (3 mL) pen for injection Inject 30 Units under the skin 2 (two) times a day 45 mL 4 4 Active lisinopriL (PRINIVIL,ZESTRI L) 40 mg tablet TAKE 1 TABLET EVERY DAY 90 tablet 3 4 Active alendronate (FOSAMAX) 70 mg tabletIndication s:Post-Menopausa l Osteoporosis Take 1 tablet (70 mg total) by mouth every 7 days Take in the morning with a full glass of water, on an empty stomach, and do not take anything else by mouth or lie down for the next 30 min. 12 tablet 3 4 025 Active guaiFENesin-dext romethorphan ER (MUCINEX DM) 600-30 mg tablet extended release 12 hr Take 1 tablet by mouth 2 (two) times a day 28 tablet 4 Active fluticasone propionate (FLONASE) 50 mcg/actuation nasal spray Administer 2 sprays into each nostril 2 (two) times a day 1 each 4 Active rosuvastatin (CRESTOR) 40 mg tablet TAKE 1 TABLET EVERY DAY 90 tablet 3 4 Active semaglutide (OZEMPIC) 1 mg/dose (4 mg/3 mL) pen injector injection Inject 1 mg under the skin once a week 9 mL 3 5 Active busPIRone (BUSPAR) 7.5 mg tablet TAKE 1 TABLET THREE TIMES DAILY 270 tablet 3 5 Active clopidogreL (PLAVIX) 75 mg tablet TAKE 1 TABLET EVERY DAY 90 tablet 3 5 Active Active Problems Problem Noted Date Diagnosed Date Troponin level elevated 04/29/2024 COVID 04/29/2024 Age-related osteoporosis wit hout current pathological fracture 04/12/2024 Assessment & Plan (04/12/2024 11:22 AM STAFF PHYSICIAN): Started on Fosamax. Continue taking vitamin D. [...] surgery. Updated referral and reached out to [facility] orthopedic surgery Dr. Ward, plan for office [...] Rosuvastatin 40mg. Last lipid panel: 02/19/23 LDL=73, EK=163. No changes at this time. Assessment & Plan (08/12/2023 11:01 AM STAFF PHYSICIAN): Chronic, stable LDL cholesterol goal Continue rosuvastatin Assessment & Plan (05/04/2023 10:39 AM STAFF PHYSICIAN): Chronic problem, currently taking Rosuvastatin 40mg. Last lipid panel: 02/19/23 LDL=73, WL=731. No changes at this time. Assessment & Plan (01/19/2023 10:03 AM CDT): Chronic, well controlled Continue Rosuvastatin Assessment & Plan (08/18/2022 10:33 AM CDT): Chronic problem, currently taking Rosuvastatin 40mg. Last lipid panel: 01/30/22 LDL=62, LG=585. No changes at this time. Hypertension associated with stage 2 chronic kidney disease due to type 2 diabetes mellitus 08/17/2022 Assessment & Plan (04/12/2024 11:42 AM STAFF PHYSICIAN): Normotensive. Continue taking lisinopril. Red flags reviewed. Assessment & Plan (12/16/2023 10:21 AM CDT): Chronic problem, BP controlled on current lisinopril 40mg daily. No changes at this time. Assessment & Plan (09/13/2023 11:43 AM CDT): Normotensive. Continue lisinopril, clonidine. Will continue monitor. Assessment & Plan (05/04/2023 10:39 AM STAFF PHYSICIAN): Chronic problem, BP controlled on current lisinopril 40mg daily. No changes at this time. Assessment & Plan (08/18/2022 10:33 AM CDT): Chronic problem, BP controlled on current quinapril 40mg daily. No changes at this time. Mild cognitive impairment 05/28/2022 Assessment & Plan (05/28/2022 4:07 PM STAFF PHYSICIAN): Patient started on donepezil around 01/2022 and [...] barefoot. Assessment & Plan (08/12/2023 11:00 AM STAFF PHYSICIAN): Foot care discussed Continue gabapentin Assessment & Plan (05/04/2023 11:00 AM STAFF PHYSICIAN): Chronic problem. Currently taking Gabapentin 300mg bid. [...] aspirin starting Wednesday 11/22. Coronary arteriosclerosis in [place] artery 02/06 Overview (09/11/2016): CAD in [place] artery Impairment of balance 02/07/2016 Overview (09/11/2016): [...] UNCNTRLD Assessment & Plan (06/08/2024 12:04 PM STAFF PHYSICIAN): Chronic, uncontrolled with a higher A1c Importance [...] placed. Assessment & Plan (08/12/2023 11:00 AM STAFF PHYSICIAN): Chronic, stable but not at goal Importance of diet and exercise discussed Continue current regimen with Levemir, Humalog, Ozempic and Farxiga Patient interested in an insulin pump Will get C-peptide, fasting glucose and galen antibody If appropriate, will start process for insulin pump Assessment & Plan (05/04/2023 10:58 AM STAFF PHYSICIAN): Chronic problem. A1c improved from 8.0% 01/2023 [...] hours). 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 or roman catholic services? 1 to 4 times per year 08/20/2022 Do you belong to any clubs o r organizations such as tenriism groups, unions, fraternal or athletic groups, or [...] staff should administer the PHQ-9) 0 06/08/2024 [facility] - Occupational Stress [...] place to sleep or slept in a mcc (including now)? No 08/20/2022 PHQ-9 Answer Date [...] on file Legal Sex Female 6:13 AM STAFF PHYSICIAN Gender Identity Not on file Sexual Orientation Straight 06/08/2024 11 :24 AM STAFF PHYSICIAN Obstetrics History Para Term AB IAB SAB Ectopic Multiple Livin g Live Births 1 1 1 Date Outcome GA Total Labor Labor/2nd/3rd Weight Sex Type Anes PTL Sarina A1 A5 Name Clin Term Last Filed Vital Signs Vital Sign Reading Time Taken Comments Blood Pressure 132/70 06/08/2024 11:34 AM STAFF PHYSICIAN Pulse 88 06/08/2024 11:34 AM STAFF PHYSICIAN Temperature 36.2 C (97.2 F) 05/01/2024 7:45 AM STAFF PHYSICIAN Respiratory Rate 20 06/08/2024 11:34 AM STAFF PHYSICIAN Oxygen Saturation 97% 05/01/2024 7:45 AM STAFF PHYSICIAN Inhaled Oxygen Concentration - - Weight 76.8 kg (169 lb 6.4 oz) 06/08/2024 11:34 AM STAFF PHYSICIAN Height 154.9 cm (5' 1 ) 06/08/2024 11:34 AM STAFF PHYSICIAN Body Mass Index 32.01 06/08/2024 11:34 AM STAFF PHYSICIAN Plan of Treatment Health Maintenance Due Date [...] 04/04/2024, 02/10/2023 Colon Cancer Screening-DNA Stool Discontinued 04/04/20, 02/10/2023 Colon Cancer Screening-FIT Discontinued 04/04/2024, Colon Cancer Screening-Sigmoidoscopy Discontinued 04/04/2024, 02/10/2023 Medical Devices Implanted Type Area Detector Car Operator Device Identifier Shelf Expiration Date Model / Serial / Lot [employer] Dvr [id number] Crosslock [place] Screw Hole Fix Angle Radius Left 1318-46-050 - [id number] Implanted:Qty: 1 on 11/26/2022 by Chang Ward MD at [facility] Left: Wrist [employer] [id number] / / [employer] Dvr 2.7mm 18mm 3 Lead Thread Lock Taper Head Radius Distal Volar 1312-04-118 - [id number] Implanted:Qty: 1 on 11/26/2022 by Chang Ward MD at [facility] Left: Wrist [employer] 1312-56-118 / / [employer] Dvr 2.7mm 20mm Lock Spine Screw Bone Nonsterile 1312-52-120 - [id number] Implanted:Qty: 2 on 11/26/2022 by Chang Ward MD at [facility] Left: Wrist [employer] [id number] / / [employer] 2.7mm 13mm Nonlock Low Profile Radius Distal Screw Bone [id number] - [id number] Implanted:Qty: 1 on 11/26/2022 by Chang Ward MD at [facility] Left: Wrist [employer] [id number] / / [employer] Dvr 2.7mm 14mm Lock Cortical Screw Bone Nonsterile Latex Free 1312-27-114 - [id number] Implanted:Qty: 2 on 11/26/2022 by Chang Ward MD at [facility] Left: Wrist [employer] 1312-27-114 / / [employer] Dvr 2.7mm 13mm Lock 3 Lead Thread Crosslock Taper Head Radius 1312-27-113 - [id number] Implanted:Qty: 1 on 11/26/2022 by Chang Ward MD at [facility] Left: Wrist [employer] 1312-27-113 / / Procedures Procedure Name Priority Date/Time Associated Diagnosis Comments POCT HEMOGLOBIN A1C Routine 06/08/2024 1 1:35 AM STAFF PHYSICIAN Type 2 diabetes mellitus with hyperglycemia, with long-term current use of insulin ([facility]) EGFR Routine 05/01/2024 4:27 AM STAFF PHYSICIAN COLONOSCOPY REPORT Routine 04/04/2024 10 :21 AM [...] Read Routine (OP Routine) 04/16/2023 12:56 PM STAFF PHYSICIAN Encounter for screening mammogram for malignant neoplasm of breast from Last 3 Months or Most Recently Relevant to Health Maintenance Results * (ABNORMAL) POCT hemoglobin A1c (06/08/2024 11:35 AM STAFF PHYSICIAN) Hemoglobin A1C, POC 7.7 4.0 - 5.6 % Comment:None Capillary blood 06/08/2024 1 1:35 AM STAFF PHYSICIAN us Raj Stoddard MD POINT OF CARE TEST ORDERABLES Fi nal Result * eGFR (05/01/2024 4:27 AM STAFF PHYSICIAN) eGFR 78 >=60 mL/min/1. 73 m2 Comment: [...] last reviewed 2021. Blood 05/01/2024 4:27 AM STAFF PHYSICIAN 05/01/2024 5:47 AM STAFF PHYSICIAN us Bro Jameson MD LAB BLOOD ORDERABLES Final Resu lt [facility] ([place]) [facility] [place] [address] 351 * Colonoscopy Report -[facility] (04/04/2024 10:21 AM CDT) Anatomical [...] fracture and secondary osteoporosis. Patient takes vitamin-D. Detector Car Operator/Model: GliaCure SL (S/N [id number]) CLINICAL INFORMATION: Current height: 62 inches Maximum [...] Electronically signed by Rebecca Syed M.D. TW: Report ID: [id number] Reading Location: [place] [address] Procedure Note Rebecca Syed MD - 03/23/2024 EXAM DESCRIPTION: DEXA AXIAL SKELETON BONE DENSITY 1 OR MORE SITES REASON FOR STUDY: 74 y/o year old F with given history of: Post menopausal status. History prior fracture and secondary osteoporosis. Patient takes vitamin-D. Detector Car Operator/Model: Press-sense Discovery SL (S/N [id number]) CLINICAL INFORMATION: Current height: 62 inches Maximum [...] Rebecca Syed M.D. TW: TW Report ID: [id number] Reading Location: [place] [address] Mer Vazquez NP IM DXA PROCEDURES Final R esult * (ABNORMAL) Albumin Creatinine Ratio, Urine (02/14/2024 11:16 AM CDT) Albumin Ur 59.2 mg/L Comment: Interpretive Data No reference range established. Current interpretive data was last revised 2018. Testing performed by: [facility], [address] [place] [address], [place]., [address] Creatinine Ur 187.7 mg/dL [facility] ([place]) Comment: Interpretive Data No reference range established. Current interpretive data was last revised 2018. Testing performed by: [facility], [address] [place] [address]., [address] Albumin Creatinine Ratio, Ur 32(H) 1 - 29 mg/g [facility] ([place]) Comment:Testing performed by : [address] [address] Urine 02/14/2024 11:1 6 AM CDT 02/14/2024 6:30 PM CDT Mer Vazquez NP LAB URINE ORDERABLES Final Result [facility] ([place]) [facility] Department [place] [address] * (ABNORMAL) Lipid panel (02/14/2024 11:16 AM [...] last revised on 2018. Testing performed by: [facility], [address] [place] [address], [address] Triglycerides 175(H) <=149 mg/dL [facility] ([place]) [...] last revised on 2018. Testing performed by: [facility], [address] [place] [address]., [address] HDL 34(L) >=40 mg/dL [facility] ([place]) [...] last revised on 2018. Testing performed by: [facility], [address] [place] [address]., [address] LDL, calculated 74 <=129 mg/dL [facility] [...] last revised on 2024. Testing performed by: [facility], [address] [place] [address]., [address] Non-HDL Cholesterol 104 mg/dL [facility] ([place]) [...] last revised on 2018. Testing performed by: [facility], [address] [place] [address]., [address] Chol/HDL ratio 4 REJI Page ABHIJEET ([place]) Comment:Testing performed by : [facility], [address] [place] [address]., [address] Blood 02/14/2024 11:1 6 AM CDT 02/14/2024 6:30 PM CDT Mer Vazquez AWNING FINISHER LAB BLOOD ORDERABLES Final Result [facility] ([place]) 1 [facility] Department [place] [address] * DIABETES EYE EXAM (10/19/2023) SCRIBED DIABETIC DILATED EYE EXAM Normal Historical Provider HEALTH MAINTENANCE Final Result * Screening Mammogram Bilateral W Philipp (04/16/2023 12:56 PM STAFF PHYSICIAN) Anatomical Region Laterality Modality Breast Bilateral Mammography 04/28/2023 2:18 PM STAFF PHYSICIAN Impressions 04/28/2023 2:18 PM STAFF PHYSICIAN There is no mammographic evidence of malignancy. A 1 year screening mammogram is recommended. BI-RADS: 1 - Negative. The patient has been or will be contacted. The patient will be entered into a reminder system with a target due date of 1 year for her next mammogram. Electronically signed by: Jaida Rothman M.D. Narrative 04/28/2023 2:18 PM STAFF PHYSICIAN EXAMINATION: SCREENING MAMMOGRAM BILATERAL W PHILIPP ORDERING [...] Health Maintenance Insurance COMMERCIAL GENERIC MEDICARE MEDICARE [place] [address] [facility] SUPPLEMENT MEDICARE [place] [address] [facility] SUPPLEMENT Advance Directives For more information, please contact: [phone] Documents on File Type Date Recorded Patient Cake Inspector Expl anation ADVANCE DIRECTIVE 06/19/2022 6:10 PM * Full Code (Latest Code Status on File) Date Activated Date Inactivated Comments 04/29/2024 9:41 PM 05/01/2024 3:08 PM Care Teams Bartender Helper Relationship Specialty Start Date End Date Horacio Ma MD [address] [place] [address] PCP - General Family Practice 10/02/24 Chang Ward MD Surgeon Orthopedic Surgery 11/26/22
--- OUTSIDE RECORDS SUMMARY | 2024-10-12 08:31 | XMS_ITS | CONTINUITY OF CARE DOCUMENT ---
Author Name taya opalbacilio Address Unknown Organization [facility] Address [address] [address] [place] [address] Phone [phone] Care Team Providers Care Fan Blade Aligner Name Role Phone Jerrell HARRY, Zachary Unavailable BEE FRAZIER MD Unavailable [phone] BEE FRAZIER MD Unavailable [phone] PROBLEMS Condition Status Date Provider Notes Cardiology [...] In-person encounter Office Visit Zachary Allan MD [facility] - In-person encounter Office Visit Zachary Allan MD [facility] Renal artery stenosis - In-person encounter Office Visit Zachary Allan MD [facility] Cardiology examination - In-person encounter Office Visit Zachary Allan MD [facility] - In-person encounter Office Visit Zachary Allan MD [facility] - In-person encounter Office Visit Zachary Allan MD [facility] Cardiology examinationFamily History of CVA or [...] blood pressure, cuff size regular Kr isty [place] blood pressure, diastolic 72 mm[Hg] Kr isty [place] blood pressure, systolic 114 mm[Hg] Kri sty Norberto pulse rate 92 /min Yola [place] oxygen saturation, oximetry 98 % Yola Norber[place] respiratory rate E&M 19 /min Yola [place] weight E&M 150 [lb_av] Yola Norberto height E&M 62 [in_i] Yola [place] Body Mass Index (Ratio) 28.35 kg/m2 Shannan Allan MD oxygen saturation, oximetry 98 % Olenastity Lisa blood pressure, diastolic 84 mm[Hg] Ch astity Lisa blood pressure, systolic 137 mm[Hg] Olena stity Lisa pulse rate 89 /min Chastity Lisa respiratory rate E&M 16 /min Olenastit y Lisa weight E&M 155 [lb_av] [facility] height E&M 62 [in_i] [facility] Body [facility] Index (Ratio) 27.98 [...] 0-149 High cholesterol, serum 157 mg/dL [employer] [phone]/05/0 7 calcium, serum 9.6 mg/dL [facility] 8.7-10.3 7 carbon dioxide, venous blood 24 mmol/L [employer] 20-29 7 chloride, serum 103 mmol/L [employer] 96-106 7 sodium, serum 144 mmol/L [employer] [phone]/05/0 7 urea nitrogen/creatinin e ratio, serum 29 [...] Estab. 7 platelet count 195 X10E3/UL [employer] [phone]/05/0 7 red blood cell distribution width 14.3 [...] Policy type / Coverage type Brandin red libertarian [place] MEDICARE PART B Medicare [id number] Divitel [id number] ADVANCE DIRECTIVES Name Date DISCUSSED - NO DECISION MADE TREATMENT PLAN Date Name Performer [id number],S, H er updated medication list for this problem includes: Rosuvastatin 40 Mg Tablet (Rosuvastatin) Zachary Allan MD [id number],B,I s very good. No evidence of renal [...] ..... Once a day Zachary Allan MD [id number],C,N o evidence of renal artery stenosis from the renal artery scan. Zachary Allan MD [id number],S,P er PCP H er updated medication list for this problem includes: Tradjenta 5 Mg Tablet (Linagliptin) ..... Once a day Aspirin 81 Mg Tablet,delayed Release (dr/ec) (Aspirin) ..... Once a day Quinapril 5 Mg Tablet (Quinapril) ..... Once a day Ozempic 0.25 Mg Or 0.5 Mg(2 Mg/1.5 Ml) Pen Injector (Semaglutide) ..... Take 0.5 mg subcutaneously once a week Zachary Allan MD [id number],B,T his is better because she had a knee replacement which she is getting used to. Zachary Allan MD [id number],C, H er updated medication list for this problem includes: Rosuvastatin 40 Mg Tablet (Rosuvastatin) Zachary Allan MD [id number],C,Per Dr. Armstrong. Zachary Allan MD [id number],C,Not significa nt. Zachary Allan MD [id number],S,N o indication to intervene. Continue current medications. [...] mg by subcutaneous route every 7 days. Zahcary Allan MD Cardiology Zachary Allan MD Cardiology: B P today: 137/84 P rior BP: 142/70 (09/16/2020) Zachary Allan MD Cardiology: O btain results of CT scan from [facility] Regla barbara has been having [...] nt :Obtain results of CT scan from [facility] Regla atfarhad has been having abdominal pain and distension that worsens with eating for the past 4-5 months Zachary Allan MD Date Name EKG Carotid Duplex Bilat eral Complete Echo Renal Artery Duplex Complete Echo Renal Artery Duplex PROTHROMBIN TIME WIT H INR LIPID PANEL CBC (INCLUDES DIFF/P LT) BASIC METABOLIC PANE L W/EGFR Renal Angio - [facility] Arterial Duplex Bi-L ower EX HISTORY OF PROCEDURES Procedure Date Procedure Name Provider Procedure Notes S tatus EKG Zachary Allan MD completed EKG Zachary Allan MD completed
--- OUTSIDE RECORDS SUMMARY | 2024-10-12 08:31 | XMS_ITS | Referral Summary ---
Author Organization [facility] [address] Address [address] [place] [address] Care Team Providers Care Commercial Door Installer Name Role Phone Chang Ward MD Unavailable Horacio Ma MD Primary Care Provider [phone] Allergies Active Allergy Reactions Criticality Noted Date [...] 04/12/2024 Assessment & Plan (04/12/2024 11:22 AM RUG INSPECTOR): Started on Fosamax. Continue taking vitamin [...] surgery. Updated referral and reached out to [facility] orthopedic surgery Dr. Ward, plan [...] Rosuvastatin 40mg. Last lipid panel: 02/19/23 LDL=73, DC=980. No changes at this time. Assessment & Plan (08/12/2023 11:01 AM RUG INSPECTOR): Chronic, stable LDL cholesterol goal Continue rosuvastatin Assessment & Plan (05/04/2023 10:39 AM RUG INSPECTOR): Chronic problem, currently taking Rosuvastatin 40mg. Last lipid panel: 02/19/23 LDL=73, TL=643. No changes at this time. Assessment & Plan (01/19/2023 10:03 AM CDT): Chronic, well controlled Continue Rosuvastatin Assessment & Plan (08/18/2022 10:33 AM CDT): Chronic problem, currently taking Rosuvastatin 40mg. Last lipid panel: 01/30/22 LDL=62, KL=469. No changes at this time. Hypertension associated with stage 2 chronic kidney disease due to type 2 diabetes mellitus 08/17/2022 Assessment & Plan (04/12/2024 11:42 AM RUG INSPECTOR): Normotensive. Continue taking lisinopril. Red flags reviewed. Assessment & Plan (12/16/2023 10:21 AM CDT): Chronic problem, BP controlled on current lisinopril 40mg daily. No changes at this time. Assessment & Plan (09/13/2023 11:43 AM CDT): Normotensive. Continue lisinopril, clonidine. Will continue monitor. Assessment & Plan (05/04/2023 10:39 AM RUG INSPECTOR): Chronic problem, BP controlled on current lisinopril 40mg daily. No changes at this time. Assessment & Plan (08/18/2022 10:33 AM CDT): Chronic problem, BP controlled on current quinapril 40mg daily. No changes at this time. Mild cognitive impairment 05/28/2022 Assessment & Plan (05/28/2022 4:07 PM RUG INSPECTOR): Patient started on donepezil around 01/2022 [...] barefoot. Assessment & Plan (08/12/2023 11:00 AM RUG INSPECTOR): Foot care discussed Continue gabapentin Assessment & Plan (05/04/2023 11:00 AM RUG INSPECTOR): Chronic problem. Currently taking Gabapentin 300mg [...] aspirin starting Wednesday 11/22. Coronary arteriosclerosis in [place] artery 02/06 Overview (09/11/2016): CAD in [place] artery Impairment of balance 02/07/2016 Overview (09/11/2016): [...] UNCNTRLD Assessment & Plan (06/08/2024 12:04 PM RUG INSPECTOR): Chronic, uncontrolled with a higher A1c [...] placed. Assessment & Plan (08/12/2023 11:00 AM RUG INSPECTOR): Chronic, stable but not at goal Importance of diet and exercise discussed Continue current regimen with Levemir, Humalog, Ozempic and Farxiga Patient interested in an insulin pump Will get C-peptide, fasting glucose and galen antibody If appropriate, will start process for insulin pump Assessment & Plan (05/04/2023 10:58 AM RUG INSPECTOR): Chronic problem. A1c improved from 8.0% [...] hours). Assessment & Plan (07/09/2022 4:06 PM RUG INSPECTOR): Hba1c was Lab Results Component Value [...] Send me a message every week, via [employer], to let me know how you are doing with your sugars and for us to look at your sugars on 1Rebelyle Rafaela Cardiac arrhythmia 01/13/2013 Overview (05/04/2021): History [...] stroke Assessment & Plan (05/28/2022 4:08 PM RUG INSPECTOR): Continues tight control of BP, statin [...] 08/20/2022 How often do you attend [facility] or taoist services? 1 to 4 times per year 08/20/2022 Do you belong to any clubs o r organizations such as anglican groups, unions, fraternal or athletic groups, or [...] staff should administer the PHQ-9) 0 06/08/2024 [facility] - Occupational Stress Questionnaire Answer Date Recorded [...] place to sleep or slept in a fpc (including now)? No 08/20/2022 PHQ-9 Answer Date [...] on file Legal Sex Female 6:13 AM RUG INSPECTOR Gender Identity Not on file Sexual Orientation Straight 06/08/2024 11 :24 AM RUG INSPECTOR Last Filed Vital Signs Vital Sign Reading Time Taken Comments Blood Pressure 132/70 06/08/2024 11:34 AM RUG INSPECTOR Pulse 88 06/08/2024 11:34 AM RUG INSPECTOR Temperature 36.2 C (97.2 F) 05/01/2024 7:45 AM RUG INSPECTOR Respiratory Rate 20 06/08/2024 11:34 AM RUG INSPECTOR Oxygen Saturation 97% 05/01/2024 7:45 AM RUG INSPECTOR Inhaled Oxygen Concentration - - Weight 76.8 kg (169 lb 6.4 oz) 06/08/2024 11:34 AM RUG INSPECTOR Height 154.9 cm (5' 1 ) 06/08/2024 11:34 AM RUG INSPECTOR Body Mass Index 32.01 06/08/2024 11:34 AM RUG INSPECTOR Plan of Treatment Not on file Medical Devices Implanted Type Area Plant Care Worker Device Identifier Shelf Expiration Date Model / Serial / Lot [employer] Dvr [id number] Crosslock [place] Screw Hole Fix Angle Radius Left 1318-21-050 - [id number] Implanted:Qty: 1 on 11/26/2022 by Chang Ward MD at [facility] Left: Wrist [employer] 1318-21-050 / / [employer] Dvr 2.7mm 18mm 3 Lead Thread Lock Taper Head Radius Distal Volar 1312-27-118 - [id number] Implanted:Qty: 1 on 11/26/2022 by Chang Ward MD at [facility] Left: Wrist [employer] 1312-118 / / [employer] Dvr 2.7mm 20mm Lock Spine Screw Bone Nonsterile 1312-27-120 - [id number] Implanted:Qty: 2 on 11/26/2022 by Chang Ward MD at [facility] Left: Wrist [employer] 1312--120 / / [employer] 2.7mm 13mm Nonlock Low Profile Radius Distal Screw Bone [id number] - [id number] Implanted:Qty: 1 on 11/26/2022 by Chang Ward MD at [facility] Left: Wrist [employer] [id number] / / [employer] Dvr 2.7mm 14mm Lock Cortical Screw Bone Nonsterile Latex Free 131-27-114 - [id number] Implanted:Qty: 2 on 11/26/2022 by Chang Ward MD at [facility] Left: Wrist [employer] 1312-27-114 / / [employer] Dvr 2.7mm 13mm Lock 3 Lead Thread Crosslock Taper Head Radius 131--113 - [id number] Implanted:Qty: 1 on 11/26/2022 by Chang Ward MD at [facility] Left: Wrist [employer] 1312--113 / / Procedures Procedure Name Priority Date/Time Associated Diagnosis Comments POCT HEMOGLOBIN A1C Routine 06/08/2024 1 1:35 AM RUG INSPECTOR Type 2 diabetes mellitus with hyperglycemia, with long-term current use of insulin (HCC) EGFR Routine 05/01/2024 4:27 AM RUG INSPECTOR COLONOSCOPY REPORT Routine 04/04/2024 10 :21 [...] Read Routine (OP Routine) 04/16/2023 12:56 PM RUG INSPECTOR Encounter for screening mammogram for malignant neoplasm of breast from Last 3 Months or Most Recently Relevant to Health Maintenance Results * (ABNORMAL) POCT hemoglobin A1c (06/08/2024 11:35 AM RUG INSPECTOR) Hemoglobin A1C, POC 7.7 4.0 - 5.6 % Comment:None Capillary blood 06/08/2024 1 1:35 AM RUG INSPECTOR Raj Stoddard MD POINT OF CARE TEST ORDERABLES Fi nal Result * eGFR (05/01/2024 4:27 AM RUG INSPECTOR) eGFR 78 >=60 mL/min/1. 73 m2 Comment: Interpretive Data Reference Interval Normal >/= 90 mL/min/1.73m2 Mildly decreased* 60 - 89 mL/min/1.73m2 Mildly to moderately decreased 45 - 59 mL/min/1.73m2 Moderately to severely decreased 30 - 44 mL/min/1.73m2 Severely decreased 15 - 29 mL/min/1.73m2 Kidney Failure < 15 mL/min/1.73m2 *Relative to young adult level Estimated glomerular filtration rate is determined by the 2021 CKD-EPI equation recommended by the National Kidney [...] last reviewed 2021. Blood 05/01/2024 4:27 AM RUG INSPECTOR 05/01/2024 5:47 AM RUG INSPECTOR us Bro Jameson MD LAB BLOOD ORDERABLES Final Resu lt [facility] [place]) 1 [facility] Department [place] [address] * Colonoscopy Report -[facility] (04/04/2024 10:21 AM CDT) [...] fracture and secondary osteoporosis. Patient takes vitamin-D. Plant Care Worker/Model: Inkerwang SL (S/N [id number]) CLINICAL INFORMATION: Current height: 62 inches Maximum [...] Rebecca Syed M.D. TW: TW Report ID: [id number] Reading Location: [id number] Procedure Note Rebecca Syed MD - 03/23/2024 EXAM DESCRIPTION: DEXA AXIAL SKELETON BONE DENSITY 1 OR MORE SITES REASON FOR STUDY: 74 y/o year old F with given history of: Post menopausal status. History prior fracture and secondary osteoporosis. Patient takes vitamin-D. Plant Care Worker/Model: Inkerwang SL (S/N [id number]) CLINICAL INFORMATION: Current height: 62 inches Maximum [...] Rebecca Syed M.D. TW: SHAHEEN Report ID: [id number] Reading Location: [place] [address] us Mer Vazquez NP IMG DXA PROCEDURES Final R esult * (ABNORMAL) Albumin Creatinine Ratio, Urine (02/14/2024 11:16 AM CDT) Albumin Ur 59.2 mg/L Comment: Interpretive Data No reference range established. Current interpretive data was last revised 2018. Testing performed by: [facility], [address] [place] [address]., [address] Creatinine Ur 187.7 mg/dL [facility] (KARIME) Comment: Interpretive Data No reference range established. Current interpretive data was last revised 2018. Testing performed by: [address] [address] Albumin Creatinine Ratio, Ur 32(H) 1 - 29 mg/g [facility] (AKRIME) Comment:Testing performed by : [address] [address] Urine 02/14/2024 11:1 6 AM CDT 02/14/2024 6:30 PM CDT Mer Vazquez NP LAB URINE ORDERABLES Final Result [facility] ([place]) 1 [facility] Department [place] [address] * (ABNORMAL) Lipid panel (02/14/2024 11:16 AM [...] last revised on 2018. Testing performed by: [address] [address] Triglycerides 175(H) <=149 mg/dL [facility] (KARIME) [...] last revised on 2018. Testing performed by: [facility], [address] [place] [address]., [address] HDL 34(L) >=40 mg/dL [facility] (KARIME) [...] last revised on 2018. Testing performed by: [facility], [address] [place] [address]., [address] LDL, calculated 74 <=129 mg/dL [facility] (KARIME) Comment: Interpretive Data Ages < or = 19 years Acceptable: <110 mg/dL Borderline high: 110-129 mg/dL High: >or= 130 mg/dL Ages > or = 20 years Optimal: <100 mg/dL Near optimal: 100-129 mg/dL Borderline high: 130-159 mg/dL High: >160 mg/dL Calculated using the Galvan LDL-C estimating equation. This equation was implemented [...] last revised on 2024. Testing performed by: [address] [address] Non-HDL Cholesterol 104 mg/dL [facility] (KARIME) [...] last revised on 2018. Testing performed by: [facility], [address] [place] [address]., [address] Chol/HDL ratio 4 REJI JHA (KARIME) Comment:Testing performed by : [address] [address] Blood 02/14/2024 11:1 6 AM CDT 02/14/2024 6:30 PM CDT Mer Vazquez NP LAB BLOOD ORDERABLES Final Result [facility] ([place]) 1 [facility] Department [place] [address] * DIABETES EYE EXAM (10/19/2023) SCRIBED DIABETIC DILATED EYE EXAM Normal Historical Provider HEALTH MAINTENANCE Final Result * Screening Mammogram Bilateral W Philipp (04/16/2023 12:56 PM RUG INSPECTOR) Anatomical Region Laterality Modality Breast Bilateral Mammography 04/28/2023 2:18 PM RUG INSPECTOR Impressions 04/28/2023 2:18 PM RUG INSPECTOR There is no mammographic evidence of malignancy. A 1 year screening mammogram is recommended. BI-RADS: 1 - Negative. The patient has been or will be contacted. The patient will be entered into a reminder system with a target due date of 1 year for her next mammogram. Electronically signed by: Jaida Rothman M.D. Narrative 04/28/2023 2:18 PM RUG INSPECTOR EXAMINATION: SCREENING MAMMOGRAM BILATERAL W PHILIPP [...] been no suspicious interval change. Mer Vazquez CONVEX GRINDER IMG MAMMO PROCEDURES Final Result from Last 3 Months or Most Recently Relevant to Health Maintenance Insurance COMMERCIAL GENERIC MEDICARE MEDICARE LOCAL [facility] W MCR SUPPLEMENT MEDICARE LOCAL [facility] H & W MCR SUPPLEMENT Advance Directives For more information, please contact: [phone] Documents on File Type Date Recorded Patient Wheel And Pinion Inspector Expl anation ADVANCE DIRECTIVE 06/19/2022 6:10 PM * Full Code (Latest Code Status on File) Date Activated Date Inactivated Comments 04/29/2024 9:41 PM 05/01/2024 3:08 PM Care Teams Commercial Door Installer Relationship Specialty Start Date End Date Horacio Ma MD [address] [place] [address] PCP - General Family Practice 10/02/24 Chang Ward MD Surgeon Orthopedic Surgery 11/26/22
--- OUTSIDE RECORDS SUMMARY | 2024-10-12 08:31 | XMS_ITS | Clinical Summary ---
Author Organization [facility] Address [address] [place] [address] Care Team Providers Care Seam Sewer Name Role Phone Júnior Puente MD Primary Care Provider [phone] Source Comments [facility],non-owned Affiliates and Associated Physician Practices is amultiple site organization consisting of ambulatory clinics and hospital sitesin [place], [place], [place] and [place]. This disclosure is being madepursuant to the Care Everywhere program and may not contain all information available regarding this patient. Last updated 18.[facility] Allergies No known active allergies Medications * Be aware that medications may not be up to date on this document. Alwaysverify current medications with the patient. aspirin (ASPIRIN) 81 MG chew tablet Take 81 mg by mouth DAILY. 100 tablet 3 03/02/2017 Active rosuvastatin (CRESTOR) 40 MG tablet 02/07/2016 Active Biotin 1000 MCG Take by mouth. 04/16/2016 Active quinapril (ACCUPRIL) 40 MG tablet Take 5 [...] by mouth once daily Active Vitamin D, Cholecalciferol , 25 MCG (1000 UT) CAPS Take by [...] drink = 0.6 oz pur e alcohol) Comments Unknown Sex and Gender Information Value Date Recorded Sex Assigned at Not on file Legal Sex Female 5:23 PM STONE POLISHER Gender Identity Not on file Sexual Orientation Not on file Last Filed Vital Signs Vital Sign Reading Time Taken Comments Blood Pressure 118/58 07/23/2020 11:30 AM STONE POLISHER Pulse 74 07/23/2020 11:30 AM STONE POLISHER Temperature 36.5 C (97.7 F) 07/23/2020 10:19 AM STONE POLISHER Respiratory Rate 6 07/23/2020 11:30 AM STONE POLISHER Oxygen Saturation 94% 07/23/2020 11:30 AM STONE POLISHER Inhaled Oxygen Concentration - - Weight 70.8 kg (156 lb) 07/23/2020 8:34 AM STONE POLISHER Height 157.5 cm (5' 2 ) 07/23/2020 8:34 AM STONE POLISHER Body Mass Index 28.53 07/23/2020 8:34 AM STONE POLISHER Plan of Treatment Health Maintenance Due Date [...] COVID-19 VACCINE (2 - season) 2024 07/09/2020 DEPRESSION SCREENING 06/07/2024 DIABETES - URINE PROTEIN SCREENING 06/07/2024 04/11/2020 INFLUENZA VACCINE (Season Ended) 2025 03/20/2020, 03/08/2018, 03/04/2017, Additional history exists HEPATITIS B VACCINE Aged Out No longe [...] PANEL (CALCIUM TOTAL) STAT 07/23/2020 8:14 AM STONE POLISHER Preop examination HEMOGLOBIN A1C Routine 01/12/2013 2:30 AM CDT from Last 3 Months or Most Recently Relevant to Health Maintenance Results * (ABNORMAL) BASIC METABOLIC PANEL (CALCIUM TOTAL) (07/23/2020 8:14 AM STONE POLISHER) BUN 13 7 - 26 mg/dL 07/23/2020 8:48 AM [facility] Creatinine 0.7 0.6 - 1.2 mg/dL 07/23/2020 8:48 AM [facility] Sodium 141 136 - 145 mmol/L 07/23/2020 8:48 AM [facility] Potassium 3.3(L) 3.5 - 4.5 mmol/L 07/23/2020 8:48 AM [facility] Chloride 106 98 - 107 mmol/L 07/23/2020 8:48 AM [facility] CO2 24 22 - 29 mmol/L 07/23/2020 8:48 AM [facility] Glucose 167(H) 70 - 115 mg/dL 07/23/2020 8:48 AM [facility] Calcium 8.5 8.4 - 10.2 mg/dL 07/23/2020 8:48 AM [facility] Anion Gap 14 8 - 18 07/23/2020 8:48 AM [facility] BUN/Creatinine Ratio 19 7 - 23 07/23/2020 8:48 AM [facility] Osmolality Calculated 296 270 - 300 mOsm/kg 07/23/2020 8:48 AM [facility] eGFR >60 >60 mL/min/1.7 3 m2 07/23/2020 8:48 AM STONE POLISHER [facility] Blood BLOOD SPECIMEN / Unknown Venipuncture / Unknown 07/23/2020 8:14 AM STONE POLISHER 07/23/2020 8:18 AM STONE POLISHER us Rod Olivas MD LAB - CHEMISTRY ORDERABLES Final Result [facility] [address] [place] [address], [facility] [phone] * (ABNORMAL) HEMOGLOBIN A1C (01/12/2013 2:30 AM CDT) Hemoglobin A1c 7.1(H) 4.4 - 6.3 % [facility] Estimated Average Glucose 157 mg/dL [facility] Blood specimen (specimen) 01/12/2013 2:30 AM CDT 01/12/2013 2:55 AM CDT us Arturo Ernst MD LAB - CHEMISTRY ORDERABLES F inal Result [facility] [address] [place] [address], [facility] [phone] from Last 3 Months or Most Recently Relevant to Health Maintenance Insurance MEDICARE MEDICARE COMMERCIAL GENERIC Member Subscriber Plan / Payer (Ef fective 2017-Present) Name:GraceMildred Relation to Subscriber:Spouse Name:MILDRED GRACE Date of :1952 (Home) (Work) Address: [address] [place] [address] Payer ID:Not on file Group ID:Not on file Type:[employer] [employer] Address: [place] [address] COMMERCIAL GENERIC SELF PAY NO INSURANCE Member Subscriber Plan / Payer (Ef fective for All Dates) Name:Mildred Grace Member ID:Not on file Relation to Subscriber:Not on file Name:MILDRED GRACE Subscriber ID:Not on file (Home) Address: [address] [place] [address] Payer ID:Not on file Group ID:Not on file Type:Self Pay Address: [place], [place] [address] [place] [address] MEDICARE Member Subscriber Plan / Payer (Ef fective for All Dates) Name:Mildred Grace Terrie Member ID:[id number] Relation to Subscriber:Self Name:MILDRED GRACE Subscriber ID:[id number] Payer ID:Not on file Group ID:Not on file Type:Medicare Address: [address] [place] [address] MEDICARE Member Subscriber Plan / Payer (Ef fective for All Dates) Name:Mildred Grace Terrie Member ID:[id number] Relation to Subscriber:Self Name:MILDRED GRACE Subscriber ID:[id number] Payer ID:Not on file Group ID:Not on file Type:Medicare Address: [place] [id number] [place] [address] MEDICARE Member Subscriber Plan / Payer (Ef fective for All Dates) Name:Mildred Grace Terrie Member ID:[id number] Relation to Subscriber:Self Name:Mildred Grace Subscriber ID:[id number] Payer ID:Not on file Group ID:Not on file Type:Medicare Address: [place] [id number] Care Teams Seam Sewer Relationship Specialty Start Date End Date Júnior Puente MD [address] [place] [address] PCP - General 03/02/14
--- OUTSIDE RECORDS SUMMARY | 2024-10-12 08:31 | XMS_ITS | Continuity of Care Document ---
Author Organization [facility] Address [address] [place] [address] Phone Care Team Providers Care Macadam Raker Name Role Phone Dumont OD, Maicol Unavailable Unavailable Procedures Procedure Date CL Replacement - Vistakon Disp W/BW Soft Tax - Medical Eye Exam, New Patient Refraction Advance Directives Directive Yes / No Effective Date File Name No Information Encounters Encounter Description Practice Location Reason(s) For Visit Diagnoses Date Provider Providers Copied on Encounter [facility], [address] [place] [address] [address], [place], [place], [id number], tel:[phone] [facility] No Information Sep-2 8-200 7 Dumont OD Maicol. [address] , [address], [place], [place], [facility], [place]. tel:[phone] [facility], [address] [place] [address] [address], [place], [place], [id number], tel:[phone] [facility] No Information Sep-1 3-200 7 Dumont OD Maicol. [address] , [address], [place], [place], [facility], [place]. tel:[phone] Referring Provider: Bharat Gurrola MD F, [address] [facility], [place], [address]. tel:[phone] Family History Family Member Type Diagnosis Age At Onset No Information Payers Payer name Insurance type Covered constitution party ID Authoriza tion(s) No Information Social [...]
== END 2024-10-12 08:29 | disposition home or self-care (01) ==
PROVIDERS: PCP Family Medicine; Visit Provider Family Medicine
DX: I73.9 Peripheral vascular disease, unspecified (principal)
CPT/HCPCS: 93922

== ENCOUNTER 2024-11-29 14:45 | Outpatient (CLI) | payer MEDICARE, OTHER, SELFPAY ==
--- NOTE | ~2024-11-29 | XR_ITS ---
XR abdomen/kub 1V Ordering provider: Horacio Ma MD History: . R10.12 - Left upper quadrant pain . Comparison: None FINDINGS: BOWEL: Nonobstructive bowel gas pattern. Fecal material is loaded in the colon. ORGANOMEGALY: None. SIGNIFICANT PATHOLOGIC CALCIFICATIONS: None. OTHER: No free air is seen under the diaphragm. Degenerative changes of the spine. Dextroscoliosis. Bilateral hip osteoarthritic changes. IMPRESSION: NO ACUTE ABDOMINAL FINDINGS. Constipation. Reviewed, dictated and finalized at location A.
[2024-11-29 15:57] LABS: Iron 87 ug/dL (37-170)
[2024-11-29 16:06] LABS: Percent Iron Saturation 24 % (20-50)
[2024-11-29 16:32] LABS: Toxigenic C. Diff NEGATIVE (NEGATIVE)
== END 2024-11-29 14:46 | disposition home or self-care (01) ==
PROVIDERS: PCP Family Medicine; Visit Provider Family Medicine
DX: K58.9 Irritable bowel syndrome, unspecified (principal); E11.40 Type 2 diabetes mellitus with diabetic neuropathy, unspecified; G25.81 Restless legs syndrome
CPT/HCPCS: 36415; 74018; 82607; 82728; 83540; 83550; 87493

== ENCOUNTER 2024-12-07 16:00 | Outpatient (CLI) | payer MEDICARE, OTHER, SELFPAY ==
--- NOTE | ~2024-12-07 | CT_ITS ---
Non-contrast CT scan of the Abdomen Clinical indication: Left upper quadrant pain Technique: 2.5 mm axial scans were obtained through the abdomen without intravenous or oral contrast . Dose reduction technique was used on this scan by utilizing automated exposure control and iterativ e reconstruction technique. The dose-length product (DLP) was 477.71 mGy-cm. COMPARISON: 07/07/2024 Findings: Images through the lung bases reveal no abnormalities. There is no evidence of renal or ureteral calculi. The kidneys and the ureters are nondilated. The liver, pancreas, and adrenals appear normal. Stable focal, densely calcified splenic lesion. Chol ecystectomy clips are present. There are atherosclerotic calcifications of the aorta. . Visualized bowel loops are unremarkable. No ascites. 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 Impression: No acute abnormality. Chronic findings, as above. Reviewed, dictated and finalized at [facility]. Impression: No acute abnormality. Chronic findings, as above.
--- OUTSIDE RECORDS SUMMARY | 2024-12-07 16:06 | XMS_ITS | Encounter Summary ---
Author Organization [facility] Healthcare Address [address] [place] [address] Care Team Providers Care Steam Tunnel Feeder Name Role Phone Chang Ward MD Unavailable [phone] Horacio Ma MD Primary Care Provider [phone] Encounter Details Date Type Department Care Team (Late st Contact Info) Description 12/06/2024 Telephone [facility] [address] [address] [place] [address] [address] Social History Tobacco Use Types Packs/Day Years Used Date Smoking Tobacco: Former Cigarettes Q uit: 04/19/2002 Smokeless Tobacco: Never Alcohol Use Standard Drinks/Week Comments Yes 1 [...] week 08/20/2022 How often do you attend [facility] or roman catholic services? 1 to 4 times per year 08/20/2022 Do you belong to any clubs o r organizations such as moravian groups, unions, fraternal or athletic groups, or [...] staff should administer the PHQ-9) 0 06/08/2024 [facility] - [...] place to sleep or slept in a half-way (including now)? No 08/20/2022 PHQ-9 Answer Date [...] on file Legal Sex Female 6:13 AM CORRECTIONAL CORPORAL Gender Identity Not on file Sexual Orientation Straight 06/08/2024 11 :24 AM CORRECTIONAL CORPORAL documented as of this encounter Miscellaneous Notes * Telephone Encounter - Florencia Mcgarry - 12/06/2024 10:09 AM CDT Called pt, to reschedule appointment she cancel via [employer] reminder, pt stated she is going to stay with her PCP for now on. documented in this encounter Plan of Treatment Not on file documented as of this encounter Visit Diagnoses Not on filedocumented in this encounter Care Teams Steam Tunnel Feeder Relationship Specialty Start Date End Date Horacio Ma MD [address] [place] [address] PCP - General Family Practice 10/02/24 Chang Ward MD Surgeon Orthopedic Surgery 11/26/22 documented as of this encounter
--- OUTSIDE RECORDS SUMMARY | 2024-12-07 16:06 | XMS_ITS | Referral Summary ---
Author Organization [facility] [address] Address [address] [place] [address] Care Team Providers Care Ecological Modeler Name Role Phone Chang Ward MD Unavailable [phone] Horacio Ma MD Primary Care Provider [phone] Encounters Date Type Department Care Team Description 12/06/2024 Telephone [facility] Specialists of [address] [address] Raj Stoddard MD 10/26/2024 7:42 AM CDT - 10/26/2024 11:59 PM CDT Hospital Encounter [facility] [address] [place] [phone] Discharge Disposition: Discharge to home or self care 10/26/2024 10:00 AM CDT Office Visit [facility] [address] [place] [phone] Sukhjinder Galdamez MD Trochanteric bursitis, right hip (Primary Dx); Right hip pain 10/12/2024 Telephone [facility] Special[facility] of [address] [address] Raj Stoddard MD Rezee OV request from Last 3 Months Allergies Active Allergy [...] Active Droplet Pen Needle 31 gauge x 16 needle 08/18/19 23 Active pen needle, diabetic [...] day 45 mL 4 12/08/19 24 Active alendronate (FOSAMAX) 70 mg tabletIndicatio [...] (two) times a day 28 tablet 05/01/20 Active Additional Information Patient not taking.Reported on 10/26/2024 fluticasone propionate (FLONASE) 50 mcg/actuation nasal spray Administer 2 sprays into each nostril 2 (two) times a day 1 each 05/01/20 Active Additional Information Patient not taking.Reported on 10/26/2024 rosuvastatin (CRESTOR) 40 mg tablet TAKE 1 [...] DAY 90 tablet 3 08/17/19 25 Active dicyclomine (BENTYL) 10 mg capsule TAKE 1 CAPSULE BY MOUTH THREE TIMES A DAY FOR ABDOMINAL CRAMPING 07/27/[address] (PROTONIX) 40 mg EC tablet TAKE 1 TABLET ORALLY EVERY MORNING FOR 30 DAYS 09/09/19 25 Active Vowst capsule 10/10/19 25 Active Gemtesa 75 mg tablet 10/23/19 25 Active lisinopriL (PRINIVIL,ZESTR IL) 40 mg tablet TAKE 1 TABLET EVERY DAY 90 tablet 3 11/30/19 25 Active lisinopriL (PRINIVIL,ZESTR IL) 40 mg tablet TAKE 1 TABLET EVERY DAY 90 tablet 3 02/09/20 24 2024 Discontinued Active Problems Problem Noted Date Diagnosed Date Troponin level elevated 04/29/2024 COVID 04/29/2024 Age-related osteoporosis wit hout current pathological fracture 04/12/2024 Assessment & Plan (04/12/2024 11:22 AM BUCKET CHUCKER): Started on Fosamax. Continue taking vitamin D. [...] Rosuvastatin 40mg. Last lipid panel: 02/19/23 LDL=73, QB=022. No changes at this time. Assessment & Plan (08/12/2023 11:01 AM BUCKET CHUCKER): Chronic, stable LDL cholesterol goal Continue rosuvastatin Assessment & Plan (05/04/2023 10:39 AM BUCKET CHUCKER): Chronic problem, currently taking Rosuvastatin 40mg. Last lipid panel: 02/19/23 LDL=73, AZ=601. No changes at this time. Assessment & Plan (01/19/2023 10:03 AM CDT): Chronic, well controlled Continue Rosuvastatin Assessment & Plan (08/18/2022 10:33 AM CDT): Chronic problem, currently taking Rosuvastatin 40mg. Last lipid panel: 01/30/22 LDL=62, RG=907. No changes at this time. Hypertension associated with stage 2 chronic kidney disease due to type 2 diabetes mellitus 08/17/2022 Assessment & Plan (04/12/2024 11:42 AM BUCKET CHUCKER): Normotensive. Continue taking lisinopril. Red flags reviewed. Assessment & Plan (12/16/2023 10:21 AM CDT): Chronic problem, BP controlled on current lisinopril 40mg daily. No changes at this time. Assessment & Plan (09/13/2023 11:43 AM CDT): Normotensive. Continue lisinopril, clonidine. Will continue monitor. Assessment & Plan (05/04/2023 10:39 AM BUCKET CHUCKER): Chronic problem, BP controlled on current lisinopril 40mg daily. No changes at this time. Assessment & Plan (08/18/2022 10:33 AM CDT): Chronic problem, BP controlled on current quinapril 40mg daily. No changes at this time. Mild cognitive impairment 05/28/2022 Assessment & Plan (05/28/2022 4:07 PM BUCKET CHUCKER): Patient started on donepezil around 01/2022 and [...] barefoot. Assessment & Plan (08/12/2023 11:00 AM BUCKET CHUCKER): Foot care discussed Continue gabapentin Assessment & Plan (05/04/2023 11:00 AM BUCKET CHUCKER): Chronic problem. Currently taking Gabapentin 300mg bid. [...] aspirin starting Wednesday 11/22. Coronary arteriosclerosis in [place] artery 02/06 Overview (09/11/2016): CAD in [place] artery Impairment of balance 02/07/2016 Overview (09/11/2016): [...] UNCNTRLD Assessment & Plan (06/08/2024 12:04 PM BUCKET CHUCKER): Chronic, uncontrolled with a higher A1c Importance [...] placed. Assessment & Plan (08/12/2023 11:00 AM BUCKET CHUCKER): Chronic, stable but not at goal Importance of diet and exercise discussed Continue current regimen with Levemir, Humalog, Ozempic and Farxiga Patient interested in an insulin pump Will get C-peptide, fasting glucose and galen antibody If appropriate, will start process for insulin pump Assessment & Plan (05/04/2023 10:58 AM BUCKET CHUCKER): Chronic problem. A1c improved from 8.0% 01/2023 [...] hours). Assessment & Plan (07/09/2022 4:06 PM BUCKET CHUCKER): Hba1c was Lab Results Component Value Date [...] Send me a message every week, via [employer], to let me know how you [...] stroke Assessment & Plan (05/28/2022 4:08 PM BUCKET CHUCKER): Continues tight control of BP, statin and [...] week 08/20/2022 How often do you attend [facility] or congregation services? 1 to 4 times per year 08/20/2022 Do you belong to any clubs o r organizations such as faith groups, unions, fraternal or athletic groups, or [...] staff should administer the PHQ-9) 0 06/08/2024 [facility] - [...] place to sleep or slept in a detention (including now)? No 08/20/2022 PHQ-9 Answer Date [...] on file Legal Sex Female 6:13 AM BUCKET CHUCKER Gender Identity Not on file Sexual Orientation Straight 06/08/2024 11 :24 AM BUCKET CHUCKER Last Filed Vital Signs Vital Sign Reading Time Taken Comments Blood Pressure 151/69 10/26/2024 9:36 AM CDT Pulse 78 10/26/2024 9:36 AM CDT Temperature 36.2 C (97.2 F) 05/01/2024 7:45 AM BUCKET CHUCKER Respiratory Rate 20 06/08/2024 11:34 AM BUCKET CHUCKER Oxygen Saturation 97% 05/01/2024 7:45 AM BUCKET CHUCKER Inhaled Oxygen Concentration - - Weight 73.5 kg (162 lb) 10/26/2024 9:36 AM CDT Height 152.4 cm (5') 10/26/2024 9:36 AM CDT Body Mass Index 31.64 10/26/2024 9:36 AM CDT Plan of Treatment Not on file Medical Devices Implanted Type Area Primary School Principal Device Identifier Shelf Expiration Date Model / Serial / Lot [employer] Dvr [id number] Crosslock [place] Screw Hole Fix Angle Radius Left 1318-21-050 - [id number] Implanted:Qty: 1 on 11/26/2022 by Chang Ward MD at [facility] Left: Wrist [employer] 1318-21-050 / / [employer] Dvr 2.7mm 18mm 3 Lead Thread Lock Taper Head Radius Distal Volar 1312-27-118 - [id number] Implanted:Qty: 1 on 11/26/2022 by Chang Ward MD at [facility] Left: Wrist [employer] 1312-27-118 / / [employer] Dvr 2.7mm 20mm Lock Spine Screw Bone Nonsterile 1312-27-120 - [id number] Implanted:Qty: 2 on 11/26/2022 by Chang Ward MD at [facility] Left: Wrist [employer] 1312-27-120 / / [employer] 2.7mm 13mm Nonlock Low Profile Radius Distal Screw Bone [id number] - [id number] Implanted:Qty: 1 on 11/26/2022 by Chang Ward MD at [facility] Left: Wrist [employer] [id number] / / [employer] Dvr 2.7mm 14mm Lock Cortical Screw Bone Nonsterile Latex Free 1312-27-114 - [id number] Implanted:Qty: 2 on 11/26/2022 by Chang Wadr MD at [facility] Left: Wrist [employer] 1312-27-114 / / [employer] Dvr 2.7mm 13mm Lock 3 Lead Thread Crosslock Taper Head Radius 1312-27-113 - [id number] Implanted:Qty: 1 on 11/26/2022 by Chang Ward MD at [facility] Left: Wrist [employer] 1312-27-113 / / Procedures Procedure Name Priority Date/Time Associated Diagnosis Comments IA ARTHROCENTESIS ASPIR&/INJ MAJOR JT/BURSA W/O US Routine 10/26/2024 10:00 AM CDT Trochanteric bursitis, right hip XR HIP RIGHT 2 OR 3 VIEWS Schedule Routine, Read Routine (OP Routine) 10/26/2024 9:25 AM CDT Right hip pain POCT HEMOGLOBIN A1C Routine 06/08/2024 1 1:35 AM BUCKET CHUCKER Type 2 diabetes mellitus with hyperglycemia, with long-term current use of insulin (HCC) EGFR Routine 05/01/2024 4:27 AM BUCKET CHUCKER COLONOSCOPY REPORT Routine 04/04/2024 10 :21 AM [...] Read Routine (OP Routine) 04/16/2023 12:56 PM BUCKET CHUCKER Encounter for screening mammogram for malignant neoplasm of breast from Last 3 Months or Most Recently Relevant to Health Maintenance Results * IA ARTHROCENTESIS ASPIR&/INJ MAJOR JT/BURSA W/O US (10/26/2024 10:00 AM CDT) Narrative Sukhjinder Galdamez MD - 10/26/2024 10:00 AM CDT Sukhjinder Galdamez MD 10/27/2024 11:25 AM Greater trochanteric bursa injection Performed by: Sukhjinder Galdamez MD Authorized by: Sukhjinder Galdamez MD Greater Trochanteric Bursa Injection: Consent Given by: Patient Site marked: the procedure site was marked Timeout: prior to procedure the correct patient, procedure, and site was verified Verbal consent obtained?: Yes Prior to the start of the procedure, verbal verification by the procedure participant(s) confirmed (as applicable): corect patient idenity; correct site/side marked and visible; agreement on the procedure to be done; correct patient positioning; an accurate procedure consent form, relevant images and results correctly labeled and displayed; any safety precautions based on clinical history and/or medication use have been addressed.: Supporting Documentation: Indications: Pain and therapeutic Procedure Details: Site: Right Greater Trochanteric Bursa Prep: patient was prepped and draped in usual sterile fashion Patient position: Sidelying Needle Size: 22 G Ultrasound guidance: No Approach: Lateral Medications: 80 mg methylPREDNISolone acetate 80 mg/mL; 4 mL lidocaine 20 mg/mL (2 %) Patient tolerance: Patient tolerated the procedure well with no immediate complications Sukhjinder Galdamez MD IN CLINIC/BEDSIDE ORDERA BLES Final Result * XR Hip Right 2 or 3 Views (10/26/2024 9:25 AM CDT) Anatomical Region Laterality Modality Lower Extremities, Hip, Pelvis Right D igital Radiography Narrative 10/27/2024 11:17 AM CDT 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 73 m2 Comment: [...] last reviewed 2021. Blood 05/01/2024 4:27 AM BUCKET CHUCKER 05/01/2024 5:47 AM BUCKET CHUCKER Bro Jameson MD LAB BLOOD ORDERABLES Final Resu lt [facility] [place] [facility] [place] [address] * Colonoscopy Report -[facility] [...] fracture and secondary osteoporosis. Patient takes vitamin-D. Primary School Principal/Model: [employer] SL (S/N [id number]) CLINICAL INFORMATION: Current height: 62 inches Maximum [...] Rebecca Syed M.D. TW: TW Report ID: [id number] Reading Location: [id number] Procedure Note Rebecca Syed MD - 03/23/2024 EXAM DESCRIPTION: DEXA AXIAL SKELETON BONE DENSITY 1 OR MORE SITES REASON FOR STUDY: 74 y/o year old F with given history of: Post menopausal status. History prior fracture and secondary osteoporosis. Patient takes vitamin-D. 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 TW: SHAHEEN Report ID: [id number] Reading Location: [place] [address] Mer Vazquez NP IM DXA PROCEDURES Final R esult * (ABNORMAL) Albumin Creatinine Ratio, Urine (02/14/2024 11:16 AM CDT) Albumin Ur 59.2 mg/L Comment: Interpretive Data No reference range established. Current interpretive data was last revised 2018. Testing performed by: [facility], [address] [place] [address], [place]., [address] Creatinine Ur 187.7 mg/dL [facility] (KARIME) Comment: Interpretive Data No reference range established. Current interpretive data was last revised 2018. Testing performed by: [facility], [address] [place] [address]., [id number] Albumin Creatinine Ratio, Ur 32(H) 1 - 29 mg/g [facility] (KARIME) Comment:Testing performed by : [facility], [address] [place] [address]., [id number] Urine 02/14/2024 11:1 6 AM CDT 02/14/2024 6:30 PM CDT Mer Vazquez NP LAB URINE ORDERABLES Final Result [facility] (KARIME) [facility] [place] [address] * (ABNORMAL) Lipid panel (02/14/2024 11:16 AM [...] revised on 2018. Testing performed by: [facility], [address] [place] [address]., [id number] Triglycerides 175(H) <=149 mg/dL [facility] (KARIME) [...] revised on 2018. Testing performed by: [facility], [address] [place] [address]., [id number] HDL 34(L) >=40 mg/dL [facility] (KARIME) [...] revised on 2018. Testing performed by: [facility], [address] [place] [address]., [id number] LDL, calculated 74 <=129 mg/dL [facility] [...] revised on 2024. Testing performed by: [facility], [address] [place] [address]., [id number] Non-HDL Cholesterol 104 mg/dL [facility] (KARIME) [...] revised on 2018. Testing performed by: [facility], [address] [place] [address]., [id number] Chol/HDL ratio 4 RE[facility]I [facility] (KARIME) Comment:Testing performed by : [facility], [address] [place] [address]., [id number] Blood 02/14/2024 11:1 6 AM CDT 02/14/2024 6:30 PM CDT Mer Vazquez NP LAB BLOOD ORDERABLES Final Result [facility] (KARIME) 1 [facility] [place] [address] * DIABETES EYE EXAM (10/19/2023) SCRIBED DIABETIC DILATED EYE EXAM Normal Historical Provider HEALTH MAINTENANCE Final Result * Screening Mammogram Bilateral W Philipp (04/16/2023 12:56 PM BUCKET CHUCKER) Anatomical Region Laterality Modality Breast Bilateral Mammography 04/28/2023 2:18 PM BUCKET CHUCKER Impressions 04/28/2023 2:18 PM BUCKET CHUCKER There is no mammographic evidence of malignancy. A 1 year screening mammogram is recommended. BI-RADS: 1 - Negative. The patient has been or will be contacted. The patient will be entered into a reminder system with a target due date of 1 year for her next mammogram. Electronically signed by: Jaida Rothman M.D. Narrative 04/28/2023 2:18 PM BUCKET CHUCKER EXAMINATION: SCREENING MAMMOGRAM BILATERAL W PHILIPP ORDERING [...] no suspicious interval change. 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
--- OUTSIDE RECORDS SUMMARY | 2024-12-07 16:06 | XMS_ITS | Clinical Summary ---
Author Organization [facility] [address] Address [address] [place] [address] Care Team Providers Care Clay Modeler Name Role Phone Chang Ward MD Unavailable [phone] Horacio Ma MD Primary Care Provider [phone] Allergies Active Allergy Reactions Criticality Noted Date [...] tablet (10 mg total) by mouth nightly 04/13/20 23 Active polyethylene glycol (MIRALAX) 17 gram/dose powder Take 17 g by mouth 3 (three) times a day as needed (Constipation) 1-3 times per day as needed for constipation (oxycodone causes constipation) 1700 g 11/20/19 Active blood-glucose sensor (Dexcom G7 Sensor) device Active insulin aspart (NovoLOG) 100 unit/mL (3 mL) pen for injection Inject 8 Units under the skin 3 (three) times a day before meals 15 mL 2 04/19/20 Active oxyBUTYnin XL (DITROPAN-XL) 10 mg 24 hr tablet Take 1 tablet (10 mg total) by mouth daily 03/26/20 Active insulin glargine 100 unit/mL (3 mL) [...] 04/12/2024 Assessment & Plan (04/12/2024 11:22 AM BIOLOGY INTERN): Started on Fosamax. Continue taking vitamin D. [...] surgery. Updated referral and reached out to [facility] orthopedic surgery Dr. Ward, plan for office [...] Rosuvastatin 40mg. Last lipid panel: 02/19/23 LDL=73, GR=811. No changes at this time. Assessment & Plan (08/12/2023 11:01 AM BIOLOGY INTERN): Chronic, stable LDL cholesterol goal Continue rosuvastatin Assessment & Plan (05/04/2023 10:39 AM BIOLOGY INTERN): Chronic problem, currently taking Rosuvastatin 40mg. Last lipid panel: 02/19/23 LDL=73, NO=440. No changes at this time. Assessment & Plan (01/19/2023 10:03 AM CDT): Chronic, well controlled Continue Rosuvastatin Assessment & Plan (08/18/2022 10:33 AM CDT): Chronic problem, currently taking Rosuvastatin 40mg. Last lipid panel: 01/30/22 LDL=62, DL=254. No changes at this time. Hypertension associated with stage 2 chronic kidney disease due to type 2 diabetes mellitus 08/17/2022 Assessment & Plan (04/12/2024 11:42 AM BIOLOGY INTERN): Normotensive. Continue taking lisinopril. Red flags reviewed. Assessment & Plan (12/16/2023 10:21 AM CDT): Chronic problem, BP controlled on current lisinopril 40mg daily. No changes at this time. Assessment & Plan (09/13/2023 11:43 AM CDT): Normotensive. Continue lisinopril, clonidine. Will continue monitor. Assessment & Plan (05/04/2023 10:39 AM BIOLOGY INTERN): Chronic problem, BP controlled on current lisinopril 40mg daily. No changes at this time. Assessment & Plan (08/18/2022 10:33 AM CDT): Chronic problem, BP controlled on current quinapril 40mg daily. No changes at this time. Mild cognitive impairment 05/28/2022 Assessment & Plan (05/28/2022 4:07 PM BIOLOGY INTERN): Patient started on donepezil around 01/2022 and [...] barefoot. Assessment & Plan (08/12/2023 11:00 AM BIOLOGY INTERN): Foot care discussed Continue gabapentin Assessment & Plan (05/04/2023 11:00 AM BIOLOGY INTERN): Chronic problem. Currently taking Gabapentin 300mg bid. [...] aspirin starting Wednesday 11/22. Coronary arteriosclerosis in [place] artery 02/06 Overview (09/11/2016): CAD in [place] artery Impairment of balance 02/07/2016 Overview [...] UNCNTRLD Assessment & Plan (06/08/2024 12:04 PM BIOLOGY INTERN): Chronic, uncontrolled with a higher A1c Importance [...] placed. Assessment & Plan (08/12/2023 11:00 AM BIOLOGY INTERN): Chronic, stable but not at goal Importance of diet and exercise discussed Continue current regimen with Levemir, Humalog, Ozempic and Farxiga Patient interested in an insulin pump Will get C-peptide, fasting glucose and galen antibody If appropriate, will start process for insulin pump Assessment & Plan (05/04/2023 10:58 AM BIOLOGY INTERN): Chronic problem. A1c improved from 8.0% 01/2023 [...] hours). Assessment & Plan (07/09/2022 4:06 PM BIOLOGY INTERN): Hba1c was Lab Results Component Value Date [...] Send me a message every week, via [employer], to let me know how you are [...] stroke Assessment & Plan (05/28/2022 4:08 PM BIOLOGY INTERN): Continues tight control of BP, statin and [...] Type Department Care Team Description 12/06/2024 Telephone [facility] [address] [address] Raj Stoddard MD 10/26/2024 10:00 AM CDT Office Visit [facility] [address] [place] [phone] Sukhjinder Galdamez MD Trochanteric bursitis, right hip (Primary Dx); Right hip pain 10/26/2024 7:42 AM CDT - 10/26/2024 11:59 PM CDT Hospital Encounter [facility] [address] [place] [phone] Discharge Disposition: Discharge to home or self care 10/12/2024 Telephone [facility] [address] [address] Raj Stoddard MD [employer] request from Last 3 Months Immunizations Immunization Administration [...] aplastic anemia at age 64, was a Spiritism Heart attack Mother 2 Mother Myocardial infa rction; mother had massive [place] at 72 Diabetes type II Other Family [...] week 08/20/2022 How often do you attend [facility] or uatsdin services? 1 to 4 times per year 08/20/2022 Do you belong to any clubs o r organizations such as scientologist groups, unions, fraternal or athletic groups, or [...] staff should administer the PHQ-9) 0 06/08/2024 [facility] - Occupational Stress [...] place to sleep or slept in a halfway (including now)? No 08/20/2022 PHQ-9 Answer Date [...] on file Legal Sex Female 6:13 AM BIOLOGY INTERN Gender Identity Not on file Sexual Orientation Straight 06/08/2024 11 :24 AM BIOLOGY INTERN Obstetrics History Para Term AB IAB SAB [...] 36.2 C (97.2 F) 05/01/2024 7:45 AM BIOLOGY INTERN Respiratory Rate 20 06/08/2024 11:34 AM BIOLOGY INTERN Oxygen Saturation 97% 05/01/2024 7:45 AM BIOLOGY INTERN Inhaled Oxygen Concentration - - Weight 73.5 kg (162 lb) 10/26/2024 9:36 AM CDT Height 152.4 cm (5') 10/26/2024 9:36 AM CDT Body Mass Index 31.64 10/26/2024 9:36 AM CDT Plan of Treatment Health Maintenance Due Date Last Done Comments Hepatitis C Screening 1950 DTaP/Tdap/Td Vaccine (1 - Tdap) 1963 Hepatitis B Screening 1970 Zoster Vaccine (1 of 2) 2002 Covid-19 Vaccine (3 - 2023-2 5 season) 2024 08/06/2020, 07/09/2020 Breast Cancer Screening-Mammogram 04/16/2024 04/16/2023, 11/11/2020, 11/11/2020 Foot Exam 10/19/2024 10/20/2023, 05/08/2022 Hemoglobin A1C 12/06/2024 06/08/2024, 12/05, 08/12/2023, Additional history exists Influenza Vaccine (#1) 2025 , 02/18/2023, 05/28/2022, Additional history exists Albumin Creatinine Ratio, Urine [...] 02/10/2023 Pneumococcal vaccine 65+ Completed 03/08/2018, 02/06 Colon Cancer Screening-CT Colonography Discontinued 04/04/2024, 02/10/2023 Colon Cancer Screening-DNA Stool Discontinued 04/04/20 24, 02/10/2023 Colon Cancer Screening-FIT Discontinued 04/04/2024, Colon Cancer Screening-Sigmoidoscopy Discontinued 04/04/2024, 02/10/2023 Medical Devices Implanted Type Area Wirer Maintenance Device Identifier Shelf Expiration Date Model / Serial / Lot [employer] Dvr [id number] Crosslock [place] Screw Hole Fix Angle Radius Left [id number] - [id number] Implanted:Qty: 1 on 11/26/2022 by Chang Ward MD at [facility] Left: Wrist [employer] [id number] / / [employer] Dvr 2.7mm 18mm 3 Lead Thread Lock Taper Head Radius Distal Volar [id number] - [id number] Implanted:Qty: 1 on 11/26/2022 by Chang Ward MD at [facility] Left: Wrist [employer] [id number] / / [employer] Dvr 2.7mm 20mm Lock Spine Screw Bone Nonsterile [id number] - [id number] Implanted:Qty: 2 on 11/26/2022 by Chang Ward MD at [facility] Left: Wrist [employer] [id number] / / [employer] 2.7mm 13mm Nonlock Low Profile Radius Distal Screw Bone [id number] - [id number] Implanted:Qty: 1 on 11/26/2022 by Chang Ward MD at [facility] Left: Wrist [employer] [id number] / / [employer] Dvr 2.7mm 14mm Lock Cortical Screw Bone Nonsterile Latex Free 131114 - [id number] Implanted:Qty: 2 on 11/26/2022 by Chang Ward MD at [facility] Left: Wrist [employer] [id number] / / [employer] Dvr 2.7mm 13mm Lock 3 Lead Thread Crosslock Taper Head Radius 1312-27-113 - [id number] Implanted:Qty: 1 on 11/26/2022 by Chang Ward MD at [facility] Left: Wrist [employer] [id number] / / Procedures Procedure Name Priority Date/Time Associated Diagnosis Comments ID ARTHROCENTESIS ASPIR&/INJ MAJOR JT/BURSA W/O US Routine 10/26/2024 10:00 AM CDT Trochanteric bursitis, right hip XR HIP RIGHT 2 OR 3 VIEWS Schedule Routine, Read Routine (OP Routine) 10/26/2024 9:25 AM CDT Right hip pain POCT HEMOGLOBIN A1C Routine 06/08/2024 1 1:35 AM BIOLOGY INTERN Type 2 diabetes mellitus with hyperglycemia, with long-term current use of insulin ([facility]) EGFR Routine 05/01/2024 4:27 AM BIOLOGY INTERN COLONOSCOPY REPORT Routine 04/04/2024 10 :21 AM [...] Read Routine (OP Routine) 04/16/2023 12:56 PM BIOLOGY INTERN Encounter for screening mammogram for malignant neoplasm of breast from Last 3 Months or Most Recently Relevant to Health Maintenance Results * ID ARTHROCENTESIS ASPIR&/INJ MAJOR JT/BURSA W/O US (10/26/2024 [...] (ABNORMAL) POCT hemoglobin A1c (06/08/2024 11:35 AM BIOLOGY INTERN) Hemoglobin A1C, POC 7.7 4.0 - 5.6 % Comment:None Capillary blood 06/08/2024 1 1:35 AM BIOLOGY INTERN Raj Stoddard MD POINT OF CARE TEST ORDERABLES Fi nal Result * eGFR (05/01/2024 4:27 AM BIOLOGY INTERN) eGFR 78 >=60 mL/min/1. 73 m2 Comment: [...] last reviewed 2021. Blood 05/01/2024 4:27 AM BIOLOGY INTERN 05/01/2024 5:47 AM BIOLOGY INTERN us Bro Jameson MD LAB BLOOD ORDERABLES Final Resu lt YAMILEX JHA MERRILL) 2 [facility] [place] [address] * Colonoscopy Report -[facility] (04/04/2024 10:21 AM CDT) [...] fracture and secondary osteoporosis. Patient takes vitamin-D. Wirer Maintenance/Model: [employer] SL (S/N [id number]) CLINICAL INFORMATION: Current height: 62 inches Maximum [...] Rebecca Syed M.D. TW: TW Report ID: [id number] Reading Location: [id number] Procedure Note Rebecca Syed MD - 03/23/2024 EXAM DESCRIPTION: DEXA AXIAL SKELETON BONE DENSITY 1 OR MORE SITES REASON FOR STUDY: 74 y/o year old F with given history of: Post menopausal status. History prior fracture and secondary osteoporosis. Patient takes vitamin-D. Wirer Maintenance/Model: [employer] SL (S/N [id number]) CLINICAL INFORMATION: Current height: 62 inches Maximum [...] Rebecca Syed M.D. TW: TW Report ID: [id number] Reading Location: [place] [address] us Mer Vazquez MACHINE GUIDE BASE WINDER IMG DXA PROCEDURES Final R esult * (ABNORMAL) Albumin Creatinine Ratio, Urine (02/14/2024 11:16 AM CDT) Albumin Ur 59.2 mg/L Comment: Interpretive Data No reference range established. Current interpretive data was last revised 2018. Testing performed by: [facility], [address] [place] [address]., [address] Creatinine Ur 187.7 mg/dL YAMILEX JHA (KARIME) Comment: Interpretive Data No reference range established. Current interpretive data was last revised 2018. Testing performed by: [address] [address] Albumin Creatinine Ratio, Ur 32(H) 1 - 29 mg/g YAMILEX JHA (KARIME) Comment:Testing performed by : [address] [address] Urine 02/14/2024 11:1 6 AM CDT 02/14/2024 6:30 PM CDT us Mer Vazquez NP LAB URINE ORDERABLES Final Result YAMILEX JHA (KARIME) 1 [facility] Department [place] [address] * (ABNORMAL) Lipid panel (02/14/2024 11:16 AM [...] last revised on 2018. Testing performed by: [address] [address] Triglycerides 175(H) <=149 mg/dL YAMILEX JHA (KARIME) [...] last revised on 2018. Testing performed by: [facility], [address] [place] [address]., [address] HDL 34(L) >=40 mg/dL YAMILEX JHA (KARIME) [...] last revised on 2018. Testing performed by: [address] [address] LDL, calculated 74 <=129 mg/dL YAMILEX JHA [...] last revised on 2024. Testing performed by: [address] [address] Non-HDL Cholesterol 104 mg/dL YAMILEX JHA (KARIME) [...] last revised on 2018. Testing performed by: [address] [address] Chol/HDL ratio 4 REJI Page ABHIJEET (KARIME) Comment:Testing performed by : [facility], [address] [facility], [place]., [address] Blood 02/14/2024 11:1 6 AM CDT 02/14/2024 6:30 PM CDT us Mer Vazquez NP LAB BLOOD ORDERABLES Final Result YAMILEX JHA (MERRILL) 1 [facility] Department [place] [address] * DIABETES EYE EXAM (10/19/2023) SCRIBED DIABETIC DILATED EYE EXAM Normal us Historical Provider HEALTH MAINTENANCE Final Result * Screening Mammogram Bilateral W Philipp (04/16/2023 12:56 PM BIOLOGY INTERN) Anatomical Region Laterality Modality Breast Bilateral Mammography 04/28/2023 2:18 PM BIOLOGY INTERN Impressions 04/28/2023 2:18 PM BIOLOGY INTERN There is no mammographic evidence of malignancy. A 1 year screening mammogram is recommended. BI-RADS: 1 - Negative. The patient has been or will be contacted. The patient will be entered into a reminder system with a target due date of 1 year for her next mammogram. Electronically signed by: Jaida Rothman M.D. Narrative 04/28/2023 2:18 PM BIOLOGY INTERN EXAMINATION: SCREENING MAMMOGRAM BILATERAL W PHILIPP ORDERING [...] no suspicious interval change. us Mer Vazquez NP IMG MAMMO PROCEDURES Final Result from Last 3 Months or Most Recently Relevant to Health Maintenance Insurance COMMERCIAL GENERIC MEDICARE MEDICARE LOCAL [address] MCR SUPPLEMENT MEDICARE LOCAL [address] MCR SUPPLEMENT Advance Directives For more information, please contact: [phone] Documents on File Type Date Recorded Patient Reading Assistant Expl anation ADVANCE DIRECTIVE 06/19/2022 6:10 PM * Full Code (Latest Code Status on File) Date Activated Date Inactivated Comments 04/29/2024 9:41 PM 05/01/2024 3:08 PM Care Teams Clay Modeler Relationship Specialty Start Date End Date Horacio Ma MD [address] [place] [address] PCP - General Family Practice 10/02/24 Chang Ward MD Surgeon Orthopedic Surgery 11/26/22
--- OUTSIDE RECORDS SUMMARY | 2024-12-07 16:06 | XMS_ITS | Continuity of Care Document ---
Author Organization [facility] Address [address] [place] [address] Phone Care Team Providers Care Tape Stringer Name Role Phone Dumont OD, Maicol Unavailable Unavailable Procedures Procedure Date CL Replacement - Vistakon Disp W/BW Soft Tax - Medical Eye Exam, New Patient Refraction Advance Directives Directive Yes / No Effective Date File Name No Information Encounters Encounter Description Practice Location Reason(s) For Visit Diagnoses Date Provider Providers Copied on Encounter [facility], [address] [place] [address] [address], [place], [place], [id number], tel:[phone] [facility] No Information Sep-2 8-200 7 Dumont OD Maicol. [address] [facility] , [address], [place], [place], [facility], [place]. tel:[phone] [facility], [address] [place] [address] [address], [place], [place], [id number], tel:[phone] [facility] No Information Sep-1 3-200 7 Dumont OD Maicol. [address] [facility] , [address], [place], [place], [facility], [place]. tel:[phone] Referring Provider: Bharat Gurrola MD F, [address] [facility], [place], [address]. tel:[phone] Family History Family Member Type Diagnosis Age At Onset No Information Payers Payer name Insurance type Covered democrat ID Authoriza tion(s) No Information Social History [...]
--- OUTSIDE RECORDS SUMMARY | 2024-12-07 16:06 | XMS_ITS | Clinical Summary ---
Author Organization [facility] Address [address] [place] [address] Care Team Providers Care Merchandise Shopper Name Role Phone Júnior Puente MD Primary Care Provider [phone] Source Comments [facility],non-owned Affiliates and Associated Physician Practices is amultiple site organization consisting of ambulatory clinics and hospital sitesin [place], [place], [place] and [place]. This disclosure is being madepursuant to the Care Everywhere program and may not contain all information available regarding this patient. Last updated 18.[facility] Allergies No known active allergies Medications * [...] on file Legal Sex Female 5:23 PM ASSISTANT ACCOUNT EXECUTIVE Gender Identity Not on file Sexual Orientation Not on file Last Filed Vital Signs Vital Sign Reading Time Taken Comments Blood Pressure 118/58 07/23/2020 11:30 AM ASSISTANT ACCOUNT EXECUTIVE Pulse 74 07/23/2020 11:30 AM ASSISTANT ACCOUNT EXECUTIVE Temperature 36.5 C (97.7 F) 07/23/2020 10:19 AM ASSISTANT ACCOUNT EXECUTIVE Respiratory Rate 6 07/23/2020 11:30 AM ASSISTANT ACCOUNT EXECUTIVE Oxygen Saturation 94% 07/23/2020 11:30 AM ASSISTANT ACCOUNT EXECUTIVE Inhaled Oxygen Concentration - - Weight 70.8 kg (156 lb) 07/23/2020 8:34 AM ASSISTANT ACCOUNT EXECUTIVE Height 157.5 cm (5' 2) 07/23/2020 8:34 AM ASSISTANT ACCOUNT EXECUTIVE Body Mass Index 28.53 07/23/2020 8:34 AM ASSISTANT ACCOUNT EXECUTIVE Plan of Treatment Health Maintenance Due Date [...] PANEL (CALCIUM TOTAL) STAT 07/23/2020 8:14 AM ASSISTANT ACCOUNT EXECUTIVE Preop examination HEMOGLOBIN A1C Routine 01/12/2013 2:30 AM CDT from Last 3 Months or Most Recently Relevant to Health Maintenance Results * (ABNORMAL) BASIC METABOLIC PANEL (CALCIUM TOTAL) (07/23/2020 8:14 AM ASSISTANT ACCOUNT EXECUTIVE) BUN 13 7 - 26 mg/dL 07/23/2020 8:48 AM [facility] Creatinine 0.7 0.6 - 1.2 mg/dL 07/23/2020 8:48 AM [facility] Sodium 141 136 - 145 mmol/L 07/23/2020 8:48 AM [facility] Potassium 3.3(L) 3.5 - 4.5 mmol/L 07/23/2020 8:48 AM [facility] Chloride 106 98 - 107 mmol/L 07/23/2020 8:48 AM [facility] CO2 24 22 - 29 mmol/L 07/23/2020 8:48 AM [facility] Glucose 167(H) 70 - 115 mg/dL 07/23/2020 8:48 AM [facility] Calcium 8.5 8.4 - 10.2 mg/dL 07/23/2020 8:48 AM [facility] Anion Gap 14 8 - 18 07/23/2020 8:48 AM [facility] BUN/Creatinine Ratio 19 7 - 23 07/23/2020 8:48 AM [facility] Osmolality Calculated 296 270 - 300 mOsm/kg 07/23/2020 8:48 AM [facility] eGFR >60 >60 mL/min/1.7 3 m2 07/23/2020 8:48 AM ASSISTANT ACCOUNT EXECUTIVE [facility] Blood BLOOD SPECIMEN / Unknown Venipuncture / Unknown 07/23/2020 8:14 AM ASSISTANT ACCOUNT EXECUTIVE 07/23/2020 8:18 AM ASSISTANT ACCOUNT EXECUTIVE us Rod Olivas MD LAB - CHEMISTRY ORDERABLES Final Result [facility] [address] [place] [address], [facility] [phone] * (ABNORMAL) HEMOGLOBIN A1C (01/12/2013 2:30 AM CDT) Hemoglobin A1c 7.1(H) 4.4 - 6.3 % [facility] Estimated Average Glucose 157 mg/dL [facility] Blood specimen (specimen) 01/12/2013 2:30 AM CDT 01/12/2013 2:55 AM CDT us Arturo Ernst MD LAB - CHEMISTRY ORDERABLES F inal Result [facility] [address] [place] [address], [facility] [phone] from Last 3 Months or Most Recently Relevant to Health Maintenance Insurance MEDICARE MEDICARE COMMERCIAL GENERIC COMMERCIAL GENERIC SELF PAY NO INSURANCE Member Subscriber Plan / Payer (Ef fective for All Dates) Name:Mildred Grace Member ID:Not on file Relation to Subscriber:Not on file Name:MILDRED GRACE Subscriber ID:Not on file (Home) Address: [address] [place] [address] Payer ID:Not on file Group ID:Not on file Type:Self Pay Address: [place], [place] [address] [place] [address] MEDICARE Member Subscriber Plan / Payer (Ef fective for All Dates) Name:Mildred Grace Terrie Member ID:[id number] Relation to Subscriber:Self Name:MILDRED GRACE Subscriber ID:[id number] Payer ID:Not on file Group ID:Not on file Type:Medicare Address: [address] [place] [address] MEDICARE Member Subscriber Plan / Payer (Ef fective for All Dates) Name:Mildred Grace Terrie Member ID:[id number] Relation to Subscriber:Self Name:MILDRED GRACE Subscriber ID:[id number] Payer ID:Not on file Group ID:Not on file Type:Medicare Address: [place] [id number] [place] [address] MEDICARE Member Subscriber Plan / Payer (Ef fective for All Dates) Name:Mildred Grace Terrie Member ID:[id number] Relation to Subscriber:Self Name:Mildred Grace Subscriber ID:[id number] Payer ID:Not on file Group ID:Not on file Type:Medicare Address: [place] [id number] Care Teams Merchandise Shopper Relationship Specialty Start Date End Date Júnior Puente MD [address] [place] [address] PCP - General 03/02/14
== END 2024-12-07 16:01 | disposition home or self-care (01) ==
PROVIDERS: PCP Family Medicine; Visit Provider Family Medicine
DX: K58.9 Irritable bowel syndrome, unspecified (principal); I70.0 Atherosclerosis of aorta; M48.10 Ankylosing hyperostosis [Forestier], site unspecified; M47.899 Other spondylosis, site unspecified; Z90.49 Acquired absence of other specified parts of digestive tract
CPT/HCPCS: 74150

== ENCOUNTER 2024-12-18 12:16 | Emergency (ER) | payer MEDICARE, OTHER, SELFPAY ==
--- OUTSIDE RECORDS SUMMARY | 2024-12-18 12:18 | XMS_ITS | Clinical Summary ---
Author Organization [facility] [address] Address [address] [place] [address] Care Team Providers Care Hoisting Pile Driving Engineer Name Role Phone Chang Ward MD Unavailable [phone] Horacio Ma MD Primary Care Provider [phone] Allergies Active Allergy Reactions Criticality Noted Date [...] 04/12/2024 Assessment & Plan (04/12/2024 11:22 AM COMMERCIAL UNDERWRITER): Started on Fosamax. Continue taking vitamin D. [...] surgery. Updated referral and reached out to [facility] orthopedic surgery Dr. Ward, plan for [...] Rosuvastatin 40mg. Last lipid panel: 02/19/23 LDL=73, OJ=181. No changes at this time. Assessment & Plan (08/12/2023 11:01 AM COMMERCIAL UNDERWRITER): Chronic, stable LDL cholesterol goal Continue rosuvastatin Assessment & Plan (05/04/2023 10:39 AM COMMERCIAL UNDERWRITER): Chronic problem, currently taking Rosuvastatin 40mg. Last lipid panel: 02/19/23 LDL=73, ZM=964. No changes at this time. Assessment & Plan (01/19/2023 10:03 AM CDT): Chronic, well controlled Continue Rosuvastatin Assessment & Plan (08/18/2022 10:33 AM CDT): Chronic problem, currently taking Rosuvastatin 40mg. Last lipid panel: 01/30/22 LDL=62, SN=282. No changes at this time. Hypertension associated with stage 2 chronic kidney disease due to type 2 diabetes mellitus 08/17/2022 Assessment & Plan (04/12/2024 11:42 AM COMMERCIAL UNDERWRITER): Normotensive. Continue taking lisinopril. Red flags reviewed. Assessment & Plan (12/16/2023 10:21 AM CDT): Chronic problem, BP controlled on current lisinopril 40mg daily. No changes at this time. Assessment & Plan (09/13/2023 11:43 AM CDT): Normotensive. Continue lisinopril, clonidine. Will continue monitor. Assessment & Plan (05/04/2023 10:39 AM COMMERCIAL UNDERWRITER): Chronic problem, BP controlled on current lisinopril 40mg daily. No changes at this time. Assessment & Plan (08/18/2022 10:33 AM CDT): Chronic problem, BP controlled on current quinapril 40mg daily. No changes at this time. Mild cognitive impairment 05/28/2022 Assessment & Plan (05/28/2022 4:07 PM COMMERCIAL UNDERWRITER): Patient started on donepezil around 01/2022 and [...] barefoot. Assessment & Plan (08/12/2023 11:00 AM COMMERCIAL UNDERWRITER): Foot care discussed Continue gabapentin Assessment & Plan (05/04/2023 11:00 AM COMMERCIAL UNDERWRITER): Chronic problem. Currently taking Gabapentin 300mg bid. [...] aspirin starting Wednesday 11/22. Coronary arteriosclerosis in [place] artery 02/06 Overview (09/11/2016): CAD in [place] artery Impairment of balance 02/07/2016 Overview (09/11/2016): [...] UNCNTRLD Assessment & Plan (06/08/2024 12:04 PM COMMERCIAL UNDERWRITER): Chronic, uncontrolled with a higher A1c Importance [...] placed. Assessment & Plan (08/12/2023 11:00 AM COMMERCIAL UNDERWRITER): Chronic, stable but not at goal Importance of diet and exercise discussed Continue current regimen with Levemir, Humalog, Ozempic and Farxiga Patient interested in an insulin pump Will get C-peptide, fasting glucose and galen antibody If appropriate, will start process for insulin pump Assessment & Plan (05/04/2023 10:58 AM COMMERCIAL UNDERWRITER): Chronic problem. A1c improved from 8.0% 01/2023 [...] hours). Assessment & Plan (07/09/2022 4:06 PM COMMERCIAL UNDERWRITER): Hba1c was Lab Results Component Value Date [...] Send me a message every week, via [employer], to let me know how you are [...] stroke Assessment & Plan (05/28/2022 4:08 PM COMMERCIAL UNDERWRITER): Continues tight control of BP, statin and [...] Encounters Date Type Department Care Team Description 12/14/2024 Telephone [facility] Specialists of [address] [address] Lauren Manzano, WALNUT DEHYDRATOR OPERATOR Forms/questionnaires ([employer] 12/06/2024 Telephone [facility] Specialists of [address] [address] Raj Stoddard MD 10/26/2024 10:00 AM CDT Office Visit [facility] Medicine [address] [place] [phone] Sukhjinder Galdamez MD Trochanteric bursitis, right hip (Primary Dx); Right hip pain 10/26/2024 7:42 AM CDT - 10/26/2024 11:59 PM CDT Hospital Encounter [facility] [address] [place] [phone] Discharge Disposition: Discharge to home or self care 10/12/2024 Telephone [facility] Specialists of [address] [phone] Raj Stoddard MD [facility] request from Last 3 Months Immunizations [...] aplastic anemia at age 64, was a [facility] attack Mother 2 Mother Myocardial infa rction; mother had massive MT at 72 Diabetes type II Other Family [...] How often do you attend chur or uatsdin services? 1 to 4 times [...] staff should administer the PHQ-9) 0 06/08/2024 [facility] [place] of Occupat ional Health - Occupational Stress [...] on file Legal Sex Female 6:13 AM COMMERCIAL UNDERWRITER Gender Identity Not on file Sexual Orientation Straight 06/08/2024 11 :24 AM COMMERCIAL UNDERWRITER Obstetrics History Para Term AB IAB SAB Ectopic Multiple Livin g Live Births 1 1 Date Outcome GA Total Labor Labor/2nd/3rd Weight Sex Type Anes PTL Sarina A1 A5 Name Clin Term Last Filed Vital Signs Vital Sign Reading Time Taken Comments Blood Pressure 151/69 10/26/2024 9:36 AM CDT Pulse 78 10/26/2024 9:36 AM CDT Temperature 36.2 C (97.2 F) 05/01/2024 7:45 AM COMMERCIAL UNDERWRITER Respiratory Rate 20 06/08/2024 11:34 AM COMMERCIAL UNDERWRITER Oxygen Saturation 97% 05/01/2024 7:45 AM COMMERCIAL UNDERWRITER Inhaled Oxygen Concentration - - Weight 73.5 [...] 04/04/2024, 02/10/2023 Medical Devices Implanted Type Area Health Safety Specialist Device Identifier Shelf Expiration Date Model / Serial / Lot [employer] Dvr [id number] Crosslock [place] Screw Hole Fix Angle Radius Left [id number] - [id number] Implanted:Qty: 1 on 11/26/2022 by Chang Ward MD at [facility] Left: Wrist [employer] [id number] / / [employer] Dvr 2.7mm 18mm 3 Lead Thread Lock Taper Head Radius Distal Volar 1312-56-118 - [id number] Implanted:Qty: 1 on 11/26/2022 by Chang Ward MD at [facility] Left: Wrist [employer] 1312-63-118 / / [employer] Dvr 2.7mm 20mm Lock Spine Screw Bone Nonsterile [id number] - [id number] Implanted:Qty: 2 on 11/26/2022 by Chang Ward MD at [facility] Left: Wrist [employer] [id number] / / [employer] 2.7mm 13mm Nonlock Low Profile Radius Distal Screw Bone [id number] - [id number] Implanted:Qty: 1 on 11/26/2022 by Chang Ward MD at [facility] Left: Wrist [employer] [id number] / / [employer] Dvr 2.7mm 14mm Lock Cortical Screw Bone Nonsterile Latex Free 1312-27-114 - [id number] Implanted:Qty: 2 on 11/26/2022 by Chang Ward MD at [facility] Left: Wrist [employer] 1312-27-114 / / [employer] Dvr 2.7mm 13mm Lock 3 Lead Thread Crosslock Taper Head Radius 1312-27-113 - [id number] Implanted:Qty: 1 on 11/26/2022 by Chang Ward MD at [facility] Left: Wrist [employer] 1312-27-113 / / Procedures Procedure Name Priority Date/Time Associated Diagnosis Comments CT ARTHROCENTESIS ASPIR&/INJ MAJOR JT/BURSA W/O US Routine 10/26/2024 10:00 AM CDT Trochanteric bursitis, right hip XR HIP RIGHT 2 OR 3 VIEWS Schedule Routine, Read Routine (OP Routine) 10/26/2024 9:25 AM CDT Right hip pain POCT HEMOGLOBIN A1C Routine 06/08/2024 1 1:35 AM COMMERCIAL UNDERWRITER Type 2 diabetes mellitus with hyperglycemia, with long-term current use of insulin ([facility]) EGFR Routine 05/01/2024 4:27 AM COMMERCIAL UNDERWRITER COLONOSCOPY REPORT Routine 04/04/2024 10 :21 AM [...] Read Routine (OP Routine) 04/16/2023 12:56 PM COMMERCIAL UNDERWRITER Encounter for screening mammogram for malignant neoplasm of breast from Last 3 Months or Most Recently Relevant to Health Maintenance Results * CT ARTHROCENTESIS ASPIR&/INJ MAJOR JT/BURSA W/O US (10/26/2024 [...] (ABNORMAL) POCT hemoglobin A1c (06/08/2024 11:35 AM COMMERCIAL UNDERWRITER) Hemoglobin A1C, POC 7.7 4.0 - 5.6 % Comment:None Capillary blood 06/08/2024 1 1:35 AM COMMERCIAL UNDERWRITER us Raj Stoddard MD POINT OF CARE TEST ORDERABLES Fi nal Result * eGFR (05/01/2024 4:27 AM COMMERCIAL UNDERWRITER) eGFR 78 >=60 mL/min/1. 73 m2 Comment: [...] last reviewed 2021. Blood 05/01/2024 4:27 AM COMMERCIAL UNDERWRITER 05/01/2024 5:47 AM COMMERCIAL UNDERWRITER Bro Jameson MD LAB BLOOD ORDERABLES Final Resu lt [facility] [place]) 1 [facility] [place] [address] * Colonoscopy Report -[facility] (04/04/2024 10:21 AM [...] fracture and secondary osteoporosis. Patient takes vitamin-D. Health Safety Specialist/Model: ibeatyou SL (S/N [id number]) CLINICAL INFORMATION: Current height: 62 inches Maximum [...] Rebecca Syed M.D. TW: TW Report ID: [id number] Reading Location: [id number] Procedure Note Rebecca Syed MD - 03/23/2024 EXAM DESCRIPTION: DEXA AXIAL SKELETON BONE DENSITY 1 OR MORE SITES REASON FOR STUDY: 74 y/o year old F with given history of: Post menopausal status. History prior fracture and secondary osteoporosis. Patient takes vitamin-D. Health Safety Specialist/Model: Bio[employer] Discovery SL (S/N [id number]) CLINICAL INFORMATION: Current height: 62 inches Maximum [...] Rebecca Syed M.D. TW: TW Report ID: [id number] Reading Location: [place] [address] Mer Vazquez NP [facility] DXA PROCEDURES Final R esult * (ABNORMAL) Albumin Creatinine Ratio, Urine (02/14/2024 11:16 AM CDT) Albumin Ur 59.2 mg/L Comment: Interpretive Data No reference range established. Current interpretive data was last revised 2018. Testing performed by: [facility], [address] [place] [address], [place]., [address] Creatinine Ur 187.7 mg/dL YAMILEX JHA ([place]) Comment: Interpretive Data No reference range established. Current interpretive data was last revised 2018. Testing performed by: [address] [address] Albumin Creatinine Ratio, Ur 32(H) 1 - 29 mg/g [facility] ([place]ARIME) Comment:Testing performed by : [address] [address] Urine 02/14/2024 11:1 6 AM CDT 02/14/2024 6:30 PM CDT Mer Vazquez NP LAB URINE ORDERABLES Final Result [facility] ([place]) 1 [facility] Department [place] [address] * (ABNORMAL) Lipid panel (02/14/2024 11:16 AM [...] last revised on 2018. Testing performed by: [facility], [address] [place] [address]., [address] Triglycerides 175(H) <=149 mg/dL [facility] (KARIME) [...] last revised on 2018. Testing performed by: [facility], [address] [place] [address]., [address] HDL 34(L) >=40 mg/dL [facility] ([place]) [...] last revised on 2018. Testing performed by: [facility], [address] [place] [address]., [address] LDL, calculated 74 <=129 mg/dL YAMILEX JHA [...] 2004;110:227 3. Cole Zaman al. KIESHA Cardiol. 2019October 05;5(5):540-548. doi: 10.1001/jamacardio.2020.0013 Current Interpretive Data was last revised on 2024. Testing performed by: [facility], [address] [place] [address], [place]., [address] Non-HDL Cholesterol 104 mg/dL [facility] (KARIME) [...] last revised on 2018. Testing performed by: [facility], [address] [place] [address]., [address] Chol/HDL ratio 4 REJI Page ABHIJEET ([place]) Comment:Testing performed by : [facility], [address] [place] [address]., [address] Blood 02/14/2024 11:1 6 AM CDT 02/14/2024 6:30 PM CDT Mer Vazquez PAYROLL ACCOUNTING CLERK LAB BLOOD ORDERABLES Final Result [facility]ILEX ABHIJEET ([place]) 1 [facility] Department [place] [address] * DIABETES EYE EXAM (10/19/2023) SCRIBED DIABETIC DILATED EYE EXAM Normal us Historical Provider HEALTH MAINTENANCE Final Result * Screening Mammogram Bilateral W Philipp (04/16/2023 12:56 PM COMMERCIAL UNDERWRITER) Anatomical Region Laterality Modality Breast Bilateral Mammography 04/28/2023 2:18 PM COMMERCIAL UNDERWRITER Impressions 04/28/2023 2:18 PM COMMERCIAL UNDERWRITER There is no mammographic evidence of malignancy. A 1 year screening mammogram is recommended. BI-RADS: 1 - Negative. The patient has been or will be contacted. The patient will be entered into a reminder system with a target due date of 1 year for her next mammogram. Electronically signed by: Jaida Rothman M.D. Narrative 04/28/2023 2:18 PM COMMERCIAL UNDERWRITER EXAMINATION: SCREENING MAMMOGRAM BILATERAL W PHILIPP ORDERING [...] been no suspicious interval change. 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
--- OUTSIDE RECORDS SUMMARY | 2024-12-18 12:18 | XMS_ITS | Clinical Summary ---
Author Organization [facility] [facility] Address [address] [place] [address] Care Team Providers Care Art Therapist Name Role Phone Júnior Puente MD Primary Care Provider [phone] Source Comments [facility],non-owned Affiliates and Associated Physician Practices is amultiple site organization consisting of ambulatory clinics and hospital sitesin [place], [place], [place] and [place]. This disclosure is being madepursuant to the Care Everywhere program and may not contain all information available regarding this patient. Last updated 18.[facility] Allergies No known active allergies Medications * [...] on file Legal Sex Female 5:23 PM LOTTERY CLERK Gender Identity Not on file Sexual Orientation Not on file Last Filed Vital Signs Vital Sign Reading Time Taken Comments Blood Pressure 118/58 07/23/2020 11:30 AM LOTTERY CLERK Pulse 74 07/23/2020 11:30 AM LOTTERY CLERK Temperature 36.5 C (97.7 F) 07/23/2020 10:19 AM LOTTERY CLERK Respiratory Rate 6 07/23/2020 11:30 AM LOTTERY CLERK Oxygen Saturation 94% 07/23/2020 11:30 AM LOTTERY CLERK Inhaled Oxygen Concentration - - Weight 70.8 kg (156 lb) 07/23/2020 8:34 AM LOTTERY CLERK Height 157.5 cm (5' 2) 07/23/2020 8:34 AM LOTTERY CLERK Body Mass Index 28.53 07/23/2020 8:34 AM LOTTERY CLERK Plan of Treatment Health Maintenance Due Date [...] URINE PROTEIN SCREENING 06/07/2024 04/11/2020 INFLUENZA VACCINE (#1) 2025 0, 03/08/2018, 03/04/2017, Additional history exists HEPATITIS B [...] PANEL (CALCIUM TOTAL) STAT 07/23/2020 8:14 AM LOTTERY CLERK Preop examination HEMOGLOBIN A1C Routine 01/12/2013 2:30 AM CDT from Last 3 Months or Most Recently Relevant to Health Maintenance Results * (ABNORMAL) BASIC METABOLIC PANEL (CALCIUM TOTAL) (07/23/2020 8:14 AM LOTTERY CLERK) BUN 13 7 - 26 mg/dL 07/23/2020 8:48 AM [facility] Creatinine 0.7 0.6 - 1.2 mg/dL 07/23/2020 8:48 AM [facility] Sodium 141 136 - 145 mmol/L 07/23/2020 8:48 AM [facility] Potassium 3.3(L) 3.5 - 4.5 mmol/L 07/23/2020 8:48 AM [facility] Chloride 106 98 - 107 mmol/L 07/23/2020 8:48 AM [facility] CO2 24 22 - 29 mmol/L 07/23/2020 8:48 AM [facility] Glucose 167(H) 70 - 115 mg/dL 07/23/2020 8:48 AM [facility] Calcium 8.5 8.4 - 10.2 mg/dL 07/23/2020 8:48 AM [facility] Anion Gap 14 8 - 18 07/23/2020 8:48 AM [facility] BUN/Creatinine Ratio 19 7 - 23 07/23/2020 8:48 AM [facility] Osmolality Calculated 296 270 - 300 mOsm/kg 07/23/2020 8:48 AM [facility] eGFR >60 >60 mL/min/1.7 3 m2 07/23/2020 8:48 AM LOTTERY CLERK [facility] Blood BLOOD SPECIMEN / Unknown Venipuncture / Unknown 07/23/2020 8:14 AM LOTTERY CLERK 07/23/2020 8:18 AM LOTTERY CLERK us Rod Olivas MD LAB - CHEMISTRY ORDERABLES Final Result [facility] [address] [place] [address], [facility] [phone] * (ABNORMAL) HEMOGLOBIN A1C (01/12/2013 2:30 AM CDT) Hemoglobin A1c 7.1(H) 4.4 - 6.3 % [facility] Estimated Average Glucose 157 mg/dL [facility] Blood specimen (specimen) 01/12/2013 2:30 AM CDT 01/12/2013 2:55 AM CDT Arturo Ernst MD LAB - CHEMISTRY ORDERABLES F inal Result [facility] [address] [place], [place] [address] [phone] from Last 3 Months or Most Recently Relevant to Health Maintenance Insurance MEDICARE MEDICARE COMMERCIAL GENERIC COMMERCIAL GENERIC SELF PAY NO INSURANCE Member Subscriber Plan / Payer (Ef fective for All Dates) Name:Mildred Grace Member ID:Not on file Relation to Subscriber:Not on file Name:MILDRED GRACE Subscriber ID:Not on file (Home) Address: [address] [place] [address] Payer ID:Not on file Group ID:Not on file Type:Self Pay Address: [place], [place] [address] [place] [address] MEDICARE Member Subscriber Plan / Payer (Ef fective for All Dates) Name:Mildred Grace Member ID:[id number] Relation to Subscriber:Self Name:MILDRED GRACE Subscriber ID:[id number] Payer ID:Not on file Group ID:Not on file Type:Medicare Address: [address] [place] [address] MEDICARE Member Subscriber Plan / Payer (Ef fective for All Dates) Name:Mildred Grace Member ID:[id number] Relation to Subscriber:Self Name:MILDRED GRACE Subscriber ID:[id number] Payer ID:Not on file Group ID:Not on file Type:Medicare Address: [place] [phone] [place] [address] MEDICARE Member Subscriber Plan / Payer (Ef fective for All Dates) Name:Mildred Grace Member ID:[id number] Relation to Subscriber:Self Name:Mildred Grace Subscriber ID:[id number] Payer ID:Not on file Group ID:Not on file Type:Medicare Address: [place] [phone] Care Teams Art Therapist Relationship Specialty Start Date End Date Júnior Puente MD [address] [place] [address] PCP - General 03/02/14
--- OUTSIDE RECORDS SUMMARY | 2024-12-18 12:18 | XMS_ITS | Referral Summary ---
Author Organization [facility] – [place] [address] Address [address] [place] [address] Care Team Providers Care Vacuum Pan Operator Name Role Phone Chang Ward MD Unavailable [phone] Horacio Ma MD Primary Care Provider [phone] Encounters Date Type Department Care Team Description 12/14/2024 Telephone [facility] – [place] Specialists of [address] [address] Lauren Manzano LPN Forms/questionnaires ([employer]) 12/06/2024 Telephone [facility] – [place] Specialists of [address] [address] Raj Stoddard MD 10/26/2024 7:42 AM CDT - 10/26/2024 11:59 PM CDT Hospital Encounter [facility] [address] [place] [phone] Discharge Disposition: Discharge to home or self care 10/26/2024 10:00 AM CDT Office Visit [facility] [address] [place] [phone] Sukhjinder Galdamez MD Trochanteric bursitis, right hip (Primary Dx); Right hip pain 10/12/2024 Telephone [facility] – [place] Specialists of [address] [phone] Raj Stoddard MD [facility] request from Last 3 Months Allergies [...] Ultra-Fine Mini Pen Needle) 31 gauge x 3/16 needle USE TO TAKE INSULIN 4 X [...] 04/12/2024 Assessment & Plan (04/12/2024 11:22 AM PHYSICAL SCIENCE PROFESSOR): Started on Fosamax. Continue taking vitamin D. [...] surgery. Updated referral and reached out to [facility] orthopedic surgery Dr. Ward, plan for [...] Rosuvastatin 40mg. Last lipid panel: 02/19/23 LDL=73, KI=944. No changes at this time. Assessment & Plan (08/12/2023 11:01 AM PHYSICAL SCIENCE PROFESSOR): Chronic, stable LDL cholesterol goal Continue rosuvastatin Assessment & Plan (05/04/2023 10:39 AM PHYSICAL SCIENCE PROFESSOR): Chronic problem, currently taking Rosuvastatin 40mg. Last lipid panel: 02/19/23 LDL=73, LW=785. No changes at this time. Assessment & Plan (01/19/2023 10:03 AM CDT): Chronic, well controlled Continue Rosuvastatin Assessment & Plan (08/18/2022 10:33 AM CDT): Chronic problem, currently taking Rosuvastatin 40mg. Last lipid panel: 01/30/22 LDL=62, AN=855. No changes at this time. Hypertension associated with stage 2 chronic kidney disease due to type 2 diabetes mellitus 08/17/2022 Assessment & Plan (04/12/2024 11:42 AM PHYSICAL SCIENCE PROFESSOR): Normotensive. Continue taking lisinopril. Red flags reviewed. Assessment & Plan (12/16/2023 10:21 AM CDT): Chronic problem, BP controlled on current lisinopril 40mg daily. No changes at this time. Assessment & Plan (09/13/2023 11:43 AM CDT): Normotensive. Continue lisinopril, clonidine. Will continue monitor. Assessment & Plan (05/04/2023 10:39 AM PHYSICAL SCIENCE PROFESSOR): Chronic problem, BP controlled on current lisinopril 40mg daily. No changes at this time. Assessment & Plan (08/18/2022 10:33 AM CDT): Chronic problem, BP controlled on current quinapril 40mg daily. No changes at this time. Mild cognitive impairment 05/28/2022 Assessment & Plan (05/28/2022 4:07 PM PHYSICAL SCIENCE PROFESSOR): Patient started on donepezil around 01/2022 and [...] barefoot. Assessment & Plan (08/12/2023 11:00 AM PHYSICAL SCIENCE PROFESSOR): Foot care discussed Continue gabapentin Assessment & Plan (05/04/2023 11:00 AM PHYSICAL SCIENCE PROFESSOR): Chronic problem. Currently taking Gabapentin 300mg bid. [...] aspirin starting Wednesday 11/22. Coronary arteriosclerosis in chitina artery 02/06 Overview (09/11/2016): CAD in ch[place] artery Impairment of balance 02/07/2016 Overview (09/11/2016): [...] UNCNTRLD Assessment & Plan (06/08/2024 12:04 PM PHYSICAL SCIENCE PROFESSOR): Chronic, uncontrolled with a higher A1c Importance [...] placed. Assessment & Plan (08/12/2023 11:00 AM PHYSICAL SCIENCE PROFESSOR): Chronic, stable but not at goal Importance of diet and exercise discussed Continue current regimen with Levemir, Humalog, Ozempic and Farxiga Patient interested in an insulin pump Will get C-peptide, fasting glucose and galen antibody If appropriate, will start process for insulin pump Assessment & Plan (05/04/2023 10:58 AM PHYSICAL SCIENCE PROFESSOR): Chronic problem. A1c improved from 8.0% 01/2023 [...] hours). Assessment & Plan (07/09/2022 4:06 PM PHYSICAL SCIENCE PROFESSOR): Hba1c was Lab Results Component Value Date [...] Send me a message every week, via [employer], to let me know how you are doing with your sugars and for us to look at your sugars on [employer] Rafaela Cardiac arrhythmia 01/13/2013 Overview (05/04/2021): History [...] stroke Assessment & Plan (05/28/2022 4:08 PM PHYSICAL SCIENCE PROFESSOR): Continues tight control of BP, statin and [...] often do you attend chur ch or denominational services? 1 to 4 times per year 08/20/2022 Do you belong to any clubs o r organizations such as religious groups, unions, fraternal or athletic groups, or [...] staff should administer the PHQ-9) 0 06/08/2024 [facility] - Occupational Stress [...] a group home (including now)? No 08/20/2022 PHQ-9 Answer [...] on file Legal Sex Female 6:13 AM PHYSICAL SCIENCE PROFESSOR Gender Identity Not on file Sexual Orientation Straight 06/08/2024 11 :24 AM PHYSICAL SCIENCE PROFESSOR Last Filed Vital Signs Vital Sign Reading Time Taken Comments Blood Pressure 151/69 10/26/2024 9:36 AM CDT Pulse 78 10/26/2024 9:36 AM CDT Temperature 36.2 C (97.2 F) 05/01/2024 7:45 AM PHYSICAL SCIENCE PROFESSOR Respiratory Rate 20 06/08/2024 11:34 AM PHYSICAL SCIENCE PROFESSOR Oxygen Saturation 97% 05/01/2024 7:45 AM PHYSICAL SCIENCE PROFESSOR Inhaled Oxygen Concentration - - Weight 73.5 kg (162 lb) 10/26/2024 9:36 AM CDT Height 152.4 cm (5') 10/26/2024 9:36 AM CDT Body Mass Index 31.64 10/26/2024 9:36 AM CDT Plan of Treatment Not on file Medical Devices Implanted Type Area Machine Oiler Device Identifier Shelf Expiration Date Model / Serial / Lot [employer] Dvr [id number] Crosslock [place] Screw Hole Fix Angle Radius Left 1318-21-050 - [id number] Implanted:Qty: 1 on 11/26/2022 by Chang Ward MD at [facility] Left: Wrist [employer] 1318-21-050 / / [employer] Dvr 2.7mm 18mm 3 Lead Thread Lock Taper Head Radius Distal Volar 1312-27-118 - [id number] Implanted:Qty: 1 on 11/26/2022 by Chang Ward MD at [facility] Left: Wrist [employer] 1312-27-118 / / [employer] Dvr 2.7mm 20mm Lock Spine Screw Bone Nonsterile 1312--120 - [id number] Implanted:Qty: 2 on 11/26/2022 by Chang Ward MD at [facility] Left: Wrist [employer] 1312-120 / / [employer] 2.7mm 13mm Nonlock Low Profile Radius Distal Screw Bone [id number] - [id number] Implanted:Qty: 1 on 11/26/2022 by Chang Ward MD at [facility] Left: Wrist [employer] [id number] / / [employer] Dvr 2.7mm 14mm Lock Cortical Screw Bone Nonsterile Latex Free 131-27- - [id number] Implanted:Qty: 2 on 11/26/2022 by Chang Ward MD at [facility] Left: Wrist [employer] 1312-27-114 / / [employer] Dvr 2.7mm 13mm Lock 3 Lead Thread Crosslock Taper Head Radius 131-27- - [id number] Implanted:Qty: 1 on 11/26/2022 by Chang Ward MD at [facility] Left: Wrist [employer] 1312-27-113 / / Procedures Procedure Name Priority Date/Time Associated Diagnosis Comments SD ARTHROCENTESIS ASPIR&/INJ MAJOR JT/BURSA W/O US Routine 10/26/2024 10:00 AM CDT Trochanteric bursitis, right hip XR HIP RIGHT 2 OR 3 VIEWS Schedule Routine, Read Routine (OP Routine) 10/26/2024 9:25 AM CDT Right hip pain POCT HEMOGLOBIN A1C Routine 06/08/2024 1 1:35 AM PHYSICAL SCIENCE PROFESSOR Type 2 diabetes mellitus with hyperglycemia, with long-term current use of insulin (HCC) EGFR Routine 05/01/2024 4:27 AM PHYSICAL SCIENCE PROFESSOR COLONOSCOPY REPORT Routine 04/04/2024 10 :21 AM [...] Read Routine (OP Routine) 04/16/2023 12:56 PM PHYSICAL SCIENCE PROFESSOR Encounter for screening mammogram for malignant neoplasm of breast from Last 3 Months or Most Recently Relevant to Health Maintenance Results * SD ARTHROCENTESIS ASPIR&/INJ MAJOR JT/BURSA W/O US (10/26/2024 [...] (ABNORMAL) POCT hemoglobin A1c (06/08/2024 11:35 AM PHYSICAL SCIENCE PROFESSOR) Hemoglobin A1C, POC 7.7 4.0 - 5.6 % Comment:None Capillary blood 06/08/2024 1 1:35 AM PHYSICAL SCIENCE PROFESSOR Raj Stoddard MD POINT OF CARE TEST ORDERABLES Fi nal Result * eGFR (05/01/2024 4:27 AM PHYSICAL SCIENCE PROFESSOR) eGFR 78 >=60 mL/min/1. 73 m2 Comment: [...] last reviewed 2021. Blood 05/01/2024 4:27 AM PHYSICAL SCIENCE PROFESSOR 05/01/2024 5:47 AM PHYSICAL SCIENCE PROFESSOR us Bro Jameson MD LAB BLOOD ORDERABLES Final Resu lt [facility] [place] [facility] Department [place] [address] * Colonoscopy Report -[facility] (04/04/2024 10:21 AM CDT) [...] fracture and secondary osteoporosis. Patient takes vitamin-D. Machine Oiler/Model: Hail Varsity SL (S/N [id number]) CLINICAL INFORMATION: Current height: 62 inches Maximum [...] Rebecca Syed M.D. TW: TW Report ID: [id number] Reading Location: [id number] Procedure Note Rebecca Syed MD - 03/23/2024 EXAM DESCRIPTION: DEXA AXIAL SKELETON BONE DENSITY 1 OR MORE SITES REASON FOR STUDY: 74 y/o year old F with given history of: Post menopausal status. History prior fracture and secondary osteoporosis. Patient takes vitamin-D. Machine Oiler/Model: Hail Varsity SL (S/N 93340) CLINICAL INFORMATION: Current height: 62 inches Maximum [...] Rebecca Syed M.D. TW: SHAHEEN Report ID: [id number] Reading Location: [id number] Mer Vazquez NP IMG DXA PROCEDURES Final R esult * (ABNORMAL) Albumin Creatinine Ratio, Urine (02/14/2024 11:16 AM CDT) Albumin Ur 59.2 mg/L Comment: Interpretive Data No reference range established. Current interpretive data was last revised 2018. Testing performed by: [address] [address] Creatinine Ur 187.7 mg/dL [facility] ([facility]AR[facility]) Comment: Interpretive Data No reference range established. Current interpretive data was last revised 2018. Testing performed by: [address] [address] Albumin Creatinine Ratio, Ur 32(H) 1 - 29 mg/g [facility] ([facility]) Comment:Testing performed by : [address] [address] Urine 02/14/2024 11:1 6 AM CDT 02/14/2024 6:30 PM CDT Mer Vazquez NP LAB URINE ORDERABLES Final Result [facility] ([facility]) [facility] Department of Laboratories [place], [place] [id number] * (ABNORMAL) Lipid panel (02/14/2024 11:16 AM CDT) Pathologist [facility] Cholesterol 138 30 - 199 mg/dL Comment: [...] last revised on 2018. Testing performed by: [address] [address] Triglycerides 175(H) <=149 mg/dL [facility] (KARIME) [...] revised on 2018. Testing performed by: [facility], [address] [place] [address]., [address] HDL 34(L) >=40 mg/dL [facility] ([place]ARIME) [...] revised on 2018. Testing performed by: [facility], [address] [place] [address]., [address] LDL, calculated 74 <=129 mg/dL [facility] [...] revised on 2024. Testing performed by: [facility], [address] [place] [address]., [address] Non-HDL Cholesterol 104 mg/dL [facility] (KARIME) [...] revised on 2018. Testing performed by: [facility], [address] [place] [address]., [address] Chol/HDL ratio 4 [facility] (KARIME) Comment:Testing performed by : [facility], [address] [place] [address]., [address] Blood 02/14/2024 11:1 6 AM CDT 02/14/2024 6:30 PM CDT Mer Vazquez NP LAB BLOOD ORDERABLES Final Result [facility] ([place]) [facility] Department [place] [address] * DIABETES EYE EXAM (10/19/2023) SCRIBED DIABETIC DILATED EYE EXAM Normal Historical Provider HEALTH MAINTENANCE Final Result * Screening Mammogram Bilateral W Philipp (04/16/2023 12:56 PM PHYSICAL SCIENCE PROFESSOR) Anatomical Region Laterality Modality Breast Bilateral Mammography 04/28/2023 2:18 PM PHYSICAL SCIENCE PROFESSOR Impressions 04/28/2023 2:18 PM PHYSICAL SCIENCE PROFESSOR There is no mammographic evidence of malignancy. A 1 year screening mammogram is recommended. BI-RADS: 1 - Negative. The patient has been or will be contacted. The patient will be entered into a reminder system with a target due date of 1 year for her next mammogram. Electronically signed by: Jaida Rothman M.D. Narrative 04/28/2023 2:18 PM PHYSICAL SCIENCE PROFESSOR EXAMINATION: SCREENING MAMMOGRAM BILATERAL W PHILIPP ORDERING [...] been no suspicious interval change. Mer Vazquez TRANSPORTATION DISPATCHER IMG MAMMO PROCEDURES Final Result from Last 3 Months or Most Recently Relevant to Health Maintenance Insurance COMMERCIAL GENERIC MEDICARE MEDICARE LOCAL [address] MCR SUPPLEMENT MEDICARE LOCAL 520 [address] MCR SUPPLEMENT Member Subscriber Plan / Payer (Ef fective 1980-Present) Name:Mildred Grace Relation to Subscriber:Self Name:Mildred Grace Payer ID:[id number] Group ID:Not on file Type:COMMERCIAL Address: [place] [id number] Advance Directives For more information, please contact: [phone] Documents on File Type Date Recorded Patient Laundry Or Dry Cleaners Counter Clerk Expl anation ADVANCE DIRECTIVE 06/19/2022 6:10 PM * Full Code (Latest Code Status on File) Date Activated Date Inactivated Comments 04/29/2024 9:41 PM 05/01/2024 3:08 PM Care Teams Vacuum Pan Operator Relationship Specialty Start Date End Date Horacio Ma MD [address] [facility] [place] [address] PCP - General Family Practice 10/02/24 Chang Ward MD Surgeon Orthopedic Surgery 11/26/22
--- OUTSIDE RECORDS SUMMARY | 2024-12-18 12:18 | XMS_ITS | Encounter Summary ---
Author Organization [facility] Healthcare Address [address] [place] [address] Care Team Providers Care Analytical Strategist Name Role Phone Chang Ward MD Unavailable [phone] Horacio Ma MD Primary Care Provider [phone] Reason for Visit * Reason Onset Date Comments Forms/questionnaires 12/14/2024 [place] [employer] Encounter Details Date Type Department Care Team (Late st Contact Info) Description 12/14/2024 Telephone [facility] [place] Specialists of [address] [phone] Lauren Manzano LPN Forms/questionnaires ([employer]) Social History Tobacco Use Types Packs/Day Years [...] do you attend select specialty hospital or temple services? 1 to 4 times per year [...] administer the PHQ-9) 0 06/08/2024 [facility] Occupat ional Health - Occupational [...] place to sleep or slept in a fci (including now)? No 08/20/2022 PHQ-9 Answer Date [...] on file Legal Sex Female 6:13 AM PRESSURISED CONTAINER FILLER Gender Identity Not on file Sexual Orientation Straight 06/08/2024 11 :24 AM PRESSURISED CONTAINER FILLER documented as of this encounter Miscellaneous Notes * Telephone Encounter - Lauren Manzano LPN - 12/14/2024 3:31 PM CDT Blane Voss Called to see if pt kept 12/11/24 appt. They are aware that pt did not keep appt and did notcallback to reschedule. documented in this encounter Plan of Treatment Not on file documented as of this encounter Visit Diagnoses Not on filedocumented in this encounter Care Teams Analytical Strategist Relationship Specialty Start Date End Date Horacio Ma MD [address] [place] [address] PCP - General Family Practice 10/02/24 Chang Ward MD Surgeon Orthopedic Surgery 11/26/22 documented as of this encounter
[2024-12-18 12:21] VITALS: BP 184/65; PULSE 70; RESP 20; TEMP 36.4; O2SAT 100
--- OUTSIDE RECORDS SUMMARY | 2024-12-18 12:21 | XMS_ITS | Continuity of Care Document ---
Author Organization [facility] Address [address] [place] [address] Phone Care Team Providers Care Breakfast Hostess Name Role Phone Dumont OD, Maicol Unavailable Unavailable Procedures Procedure Date CL Replacement - Vistakon Disp W/BW Soft Tax - Medical Eye Exam, New Patient Refraction Advance Directives Directive Yes / No Effective Date File Name No Information Encounters Encounter Description Practice Location Reason(s) For Visit Diagnoses Date Provider Providers Copied on Encounter [facility], [address] [place] [address] [address], [place], [place], [id number], tel:[phone] [facility] No Information Sep-2 8-200 7 Dumont OD Maicol. [address] [facility] , [address], [place], [place], [facility], [place]. tel:[phone] [facility], [address] [place] [address] [address], [place], [place], [id number], tel:[phone] [facility] No Information Sep-1 3-200 7 Dumont OD Maicol. [address] [facility] , [address], [place], [place], [facility], [place]. tel:[phone] Referring Provider: Bharat Gurrola MD F, [address] [facility], [place], [address]. tel:[phone] Family History Family Member Type Diagnosis Age [...]
[2024-12-18 12:48] LABS: EDUAAPPEAR Clear; EDUABILI Negative (Negative); EDUABLOOD Negative (Negative); EDUACOLOR1 Light/Pale; EDUAGLUCOSE 2+ (Negative); EDUAKETONE Negative (Negative); EDUALEUKO Trace (Negative); EDUANITRATE Negative (Negative); EDUAPH 6.0; EDUAPROTEIN Negative (Negative); EDUASPGRAVITY 1.015; EDUAUROBILI 0.2
--- NOTE | 2024-12-18 13:04 | ED.FEMALEGU ---
HPI - Female Genitourinary General Chief complaint: Urogenital-Female Stated complaint: poss uti Time Seen by Provider: 12/18/24 12:30 Source: patient and RN notes reviewed Mode of arrival: ambulatory Limitations: no limitations History of Present Illness HPI Narrative: 74-year-old female presents Express Care complaining of urinary symptoms for 3 days. Patient reports having dysuria, increased frequency, mid back pain. Patient says her midback pain thing on for least 2 weeks. Her urinary symptoms started 3 days ago. Patient denies any fevers, abdominal pain, body aches, chills, nausea, vomiting, diarrhea. Patient has been taking Tylenol to help with the back pain without any relief. Patient has history of type 2 diabetes and vascular disease. Related Data Home Medications ?Medication ?Instructions ?Recorded ?Confirmed ?Last Taken ?Type aspirin 81 mg tablet,delayed 81 mg PO DAILY 10/13/19 09/29/24 09/05/24 History release (Adult Low Dose Aspirin) clopidogrel 75 mg tablet 75 mg PO DAILY 02/02/23 09/29/24 09/06/24 History lisinopril 40 mg tablet 40 mg PO DAILY 02/02/23 09/29/24 09/06/24 History alprazolam 0.25 mg tablet 0.25 mg PO TID PRN Anxiety 03/28/24 09/29/24 07/06/24 History biotin 1,000 mcg chewable tablet 1,000 mcg PO DAILY 03/28/24 09/29/24 09/06/24 History cholecalciferol (vitamin D3) 25 25 mcg PO DAILY 03/28/24 09/29/24 09/06/24 History mcg (1,000 unit) tablet (Vitamin D3) rosuvastatin 40 mg tablet 40 mg PO DAILY 03/28/24 09/29/24 09/06/24 History ascorbic acid (vitamin C) 100 mg 100 mg PO DAILY 07/07/24 09/29/24 09/06/24 History tablet (Vitamin C) turmeric 400 mg capsule 400 mg PO DAILY 07/07/24 09/29/24 09/05/24 History vitamin B complex 1 tablet PO DAILY 07/07/24 09/29/24 09/06/24 History buspirone 7.5 mg tablet 7.5 mg PO BID 09/29/24 09/29/24 Unknown History Allergies Allergy/AdvReac Type Severity Reaction Status Date / Time No Known Allergies Allergy Verified 12/18/24 12:28 Review of Systems Review of Systems: CONSTITUTIONAL: Denies fever, chills, body aches, or sweats. EYES: Denies visual changes, redness, or discharge. ENT: Denies rhinorrhea, congestion, sore throat, or otalgia. CARDIOVASCULAR: Denies chest pain, palpitations, or edema. RESPIRATORY: Denies cough or dyspnea. GASTROINTESTINAL: Denies abdominal pain, nausea, vomiting, or diarrhea. GENITOURINARY: Positive for dysuria, increased frequency. Negative for hematuria or vaginal bleeding. SKIN: Denies rash or itching. MUSCULOSKELETAL: Positive for back pain. Negative for joint pain, or myalgia. NEUROLOGIC: Denies headache, numbness, or weakness. PSYCHIATRIC: Denies anxiety or depression. All other systems reviewed are negative, except as documented in HPI. [facility] Past Medical History Medical History Shingles Gout Overactive bladder Coronary artery disease Colitis Mixed hyperlipidemia Frequent urination Diabetes Arthritis IBS (irritable bowel syndrome) Fatigue Abdominal pain Diarrhea ACL tear Tear of MCL (medial collateral ligament) of knee Surgical History Surgical History History of tubal ligation History of total knee arthroplasty Right History of cholecystectomy H/O: hysterectomy Total hysterectomy, ovaries and uterus precancerous Family History Family History Mother Hypertension Cerebrovascular accident Family history of diabetes mellitus in first degree relative Family history of coronary artery disease Grandparent Family history of lung cancer Family history of coronary artery disease Diabetes mellitus Father Cancer Aplastic anemia Sibling Diabetes mellitus Heart disease Other Family history of arthritis Family history of gout Family history of malignant neoplasm Social History Social History Smoking packs per day: 0 Smoking cigarettes per day: 0.0 Years smoked: 45 Smoking pack-years: 0.00 Smoking status: Former smoker Alcohol intake: never Alcohol use details: social Substance use: never Substance use type: does not use Do You Feel Safe in your Home?: Yes Lack of Transportation: No Lack of Food: Never True Current Housing: I Have Housing Concerned About Future Housing: No Difficulty Paying Gas/Electric Bills: No Difficulty Paying for Meds: No Currently Unemployed: No Education: High School Diploma/GED Difficulty w/ Childcare or Family Care: No Living arrangements: with family Occupation/Education: retired Gender identity (if verbalized by the patient): Female Spiritual care concerns: No Comments At the time of my signature, I reviewed and agree with the nursing past medical, surgical, social, and family history. There is no relevant family history pertinent to the patient complaint. Exam Narrative: GENERAL: This is a well-nourished, well-developed adult, in no apparent distress. They are non ill-appearing, nontoxic appearing. HEAD: normocephalic, atraumatic. EYES: Sclera clear/white. Vision is grossly intact. Conjunctiva normal bilaterally. Extraocular movements intact. EARS: External ears normal,Hearing grossly intact. NOSE: External nose normal THROAT: Mucous membranes moist NECK: Normal range of motion CARDIOVASCULAR: Regular rate and rhythm. Normal S1-S2. No clicks, gallops, rubs, murmurs. RESPIRATORY: Respiratory rate normal, respiratory effort nonlabored, no respiratory distress. Lung sounds clear to auscultation throughout. Lung sounds equal bilaterally. No adventitious lung sounds. GASTROINTESTINAL: Abdomen soft, flat, non-tender, nondistended. Bowel sounds are active. No hepato-splenomegaly, or palpable masses. No guarding. No rebound tenderness. SKIN: warm, Dry, intact with no suspicious lesions or rash, good texture and turgor. NEURO: awake, alert, and oriented to person, place and time. There were no obvious focal neurologic abnormalities. EXTREMITIES: No joint tenderness, effusion, or edema noted. BACK: Nontender without deformity. No CVA tenderness. Course Course Emergency Course: Portions of this record may have been created with voice recognition software Level of Care: Express Care Visit Vital Signs Vital signs: Vital Signs Temperature 97.5 F L 12/18/24 12:21 Pulse Rate 70 12/18/24 12:21 Respiratory Rate 20 12/18/24 12:21 Blood Pressure 184/65 H 12/18/24 12:21 Pulse Oximetry 100 12/18/24 12:21 Oxygen Delivery Room Air 12/18/24 12:21 Temperature 97.5 F L 12/18/24 12:21 Pulse Rate 70 12/18/24 12:21 Respiratory Rate 20 12/18/24 12:21 Blood Pressure 184/65 H 12/18/24 12:21 Pulse Oximetry 100 12/18/24 12:21 Oxygen Delivery Room Air 12/18/24 12:21 MDM - Female Genitourinary MDM Narrative Medical decision making narrative: Urine dipstick shows evidence of urinary tract infection. Urine culture pending. Will treat with cephalexin. Also will prescribe pyridium to help with urinary symptoms. Discussed physical exam findings. Advised supportive measures and signs/symptoms to go to the ER. Pt is appropriate for outpt treatment and f/u. Differential Diagnosis Differential diagnosis: Likely urinary tract infection, cystitis and other (Pyelonephritis) Lab Data Attestation: I reviewed the patient's lab results. Labs: Lab Results 12/18/24 Range/Units 12:36 POC Urine Color Light/pale POC Urine Clarity Clear POC Urine pH 6.0 POC Ur Specif [place] 1.015 POC Urine Protein Negative (Negative) POC Ur Glucose (UA) 2+ (Negative) POC Urine Ketones Negative (Negative) POC Urine Blood Negative (Negative) POC Urine Nitrite Negative (Negative) POC Urine Bilirubin Negative (Negative) POC Urine Urobilinogen 0.2 POC U Leukocyte Esteras Trace (Negative) Discharge Plan Discharge Clinical Impression: Urinary tract infection Qualifiers: Urinary tract infection type: site unspecified Hematuria presence: without hematuria Qualified Code(s): N39.0 - Urinary tract infection, site not specified Patient Disposition: Home Condition: Stable Instructions: Antibiotic Form, Urinary Tract Infection in Older Adults (ED) Additional Instructions: Take the antibiotic as prescribed The urine will be sent of for a culture to identify what type of bacteria is causing your infection. If the culture shows that the antibiotic will not get rid of your infection, you will be notified and a new antibiotic will be called in for you. Increase water intake Take Pyridium as directed. It may make your urine turn orange in color. You may take Tylenol as needed for pain. And exceed more than a 1000 mg at a time or more than 4000 mg a day or you may injury your liver. you will need to follow up with your PCP 3-5 days. Go to the ER for any worsening symptoms, abdominal pain, fevers, nausea, vomiting, or any other concerns Patient Language: Arabic Prescriptions: New cephalexin 500 mg capsule 500 mg PO BID 7 Days Qty: 14 0RF phenazopyridine [Pyridium] 200 mg tablet 200 mg PO TID 2 Days Qty: 6 0RF No Action aspirin [Adult Low Dose Aspirin] 81 mg tablet,delayed release (DR/EC) 81 mg PO DAILY dicyclomine 10 mg capsule 10 mg PO TID PRN (Reason: abdominal cramping) Qty: 30 0RF Vitamin C 100 mg tablet 100 mg PO DAILY vitamin B complex Tablet 1 tablet PO DAILY turmeric 400 mg capsule 400 mg PO DAILY lisinopril 40 mg tablet 40 mg PO DAILY clopidogrel 75 mg tablet 75 mg PO DAILY Rx Instructions: TAKE 1 TABLET EVERY DAY buspirone 7.5 mg tablet 7.5 mg PO BID Rx Instructions: TAKE 1 TABLET BID DAILY alprazolam 0.25 mg Tablet 0.25 mg PO TID PRN (Reason: Anxiety) rosuvastatin 40 mg tablet 40 mg PO DAILY cholecalciferol (vitamin D3) [Vitamin D3] 25 mcg (1,000 unit) Tablet 25 mcg PO DAILY biotin 1,000 mcg Tablet,Chewable 1,000 mcg PO DAILY Gemtesa 75 mg tablet 75 mg PO DAILY Qty: 90 1RF cetirizine 10 mg tablet 10 mg PO DAILY Qty: 30 0RF insulin glargine [Lantus Solostar U-100 Insulin] 100 unit/mL (3 mL) insulin pen 30 unit subcut BID Qty: 15 3RF (DME) pen needle, diabetic [Comfort EZ Pen [place]] 32 gauge x 5/16 needle See Rx Instructions .Route Qty: 100 3RF Rx Instructions: Use with insulin Pen twice a day As directed Follow-up/Referrals: Horacio Ma MD [Primary Care Provider] - Time of Disposition: 12:48
== END 2024-12-18 12:57 | disposition home or self-care (01) ==
PROVIDERS: PCP Family Medicine
DX: N39.0 Urinary tract infection, site not specified (principal); Z87.891 Personal history of nicotine dependence; I25.10 Atherosclerotic heart disease of native coronary artery without angina pectoris; E78.2 Mixed hyperlipidemia; E11.9 Type 2 diabetes mellitus without complications; Z79.4 Long term (current) use of insulin; M10.9 Gout, unspecified; M19.90 Unspecified osteoarthritis, unspecified site; Z96.651 Presence of right artificial knee joint; Z79.82 Long term (current) use of aspirin; N32.81 Overactive bladder
CPT/HCPCS: 81003; 87086; 99213; G0463

== ENCOUNTER 2024-12-19 12:01 | Outpatient (CLI) | payer MEDICARE, OTHER, SELFPAY ==
--- NOTE | ~2024-12-19 | XR_ITS ---
3 VIEWS THORACIC SPINE Ordering provider: Horacio Ma MD History: . M54.6 - Pain in thoracic spine/NO RECENT TRAUMA . Comparison: None. FINDINGS: VERTEBRAL BODIES: Loss of height of L1 is seen anteriorly most likely chronic compression fracture. O therwise, Normal height and alignment. No visible acute fracture or subluxation. Degenerative changes of the spine. Levoscoliosis. DISK SPACES: Multilevel degenerative disc disease. SOFT TISSUES: Atherosclerotic changes of the aorta. IMPRESSION: No definite acute osseous abnormality of the thoracic spine. Loss of height of L1 anteriorly which is most likely chronic fracture. Reviewed, dictated and finalized at location A.
--- OUTSIDE RECORDS SUMMARY | 2024-12-19 11:58 | XMS_ITS | Clinical Summary ---
Author Organization [employer] Address [address] [place] [address] Care Team Providers Care Clinical Registered Nurse Name Role Phone Júnior Puente MD Primary Care Provider [phone] Source Comments [employer]non-owned Affiliates and Associated Physician Practices is amultiple site organization consisting of ambulatory clinics and hospital sitesin [place], [place], [place] and [place]. This disclosure is being madepursuant to the Care Everywhere program and may not contain all information available regarding this patient. Last updated 18.[employer] 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 Gender Identity Not on file Sexual Orientation Not on file Last Filed Vital Signs Vital Sign Reading Time Taken Comments Blood Pressure 118/58 07/23/2020 11:30 AM CHARGE HISTOTECHNOLOGIST Pulse 74 07/23/2020 11:30 AM CHARGE HISTOTECHNOLOGIST Temperature 36.5 C (97.7 F) 07/23/2020 10:19 AM CHARGE HISTOTECHNOLOGIST Respiratory Rate 6 07/23/2020 11:30 AM CHARGE HISTOTECHNOLOGIST Oxygen Saturation 94% 07/23/2020 11:30 AM CHARGE HISTOTECHNOLOGIST Inhaled Oxygen Concentration - - Weight 70.8 kg (156 lb) 07/23/2020 8:34 AM CHARGE HISTOTECHNOLOGIST Height 157.5 cm (5' 2) 07/23/2020 8:34 AM CHARGE HISTOTECHNOLOGIST Body Mass Index 28.53 07/23/2020 8:34 AM CHARGE HISTOTECHNOLOGIST Plan of Treatment Health Maintenance Due Date [...] PANEL (CALCIUM TOTAL) STAT 07/23/2020 8:14 AM CHARGE HISTOTECHNOLOGIST Preop examination HEMOGLOBIN A1C Routine 01/12/2013 2:30 AM CDT from Last 3 Months or Most Recently Relevant to Health Maintenance Results * (ABNORMAL) BASIC METABOLIC PANEL (CALCIUM TOTAL) (07/23/2020 8:14 AM CHARGE HISTOTECHNOLOGIST) BUN 13 7 - 26 mg/dL 07/23/2020 [...] >60 mL/min/1.7 3 m2 07/23/2020 8:48 AM CHARGE HISTOTECHNOLOGIST [facility] Blood BLOOD SPECIMEN / Unknown Venipuncture / Unknown 07/23/2020 8:14 AM CHARGE HISTOTECHNOLOGIST 07/23/2020 8:18 AM CHARGE HISTOTECHNOLOGIST us Rod Olivas MD LAB - CHEMISTRY ORDERABLES Final Result [facility] [address] [place] [address], [facility] [phone] * (ABNORMAL) HEMOGLOBIN A1C (01/12/2013 2:30 AM CDT) Hemoglobin A1c 7.1(H) 4.4 - 6.3 % [facility] Estimated Average Glucose 157 mg/dL [facility] Blood specimen (specimen) 01/12/2013 2:30 AM CDT 01/12/2013 2:55 AM CDT Arturo Ernst MD LAB - CHEMISTRY ORDERABLES F inal Result [facility] [address] [place], [place] [address] [phone] from Last 3 Months or Most Recently Relevant to Health Maintenance Insurance MEDICARE MEDICARE COMMERCIAL GENERIC COMMERCIAL GENERIC SELF PAY NO INSURANCE Member Subscriber Plan / Payer (Ef fective for All Dates) Name:Mildred Grace Member ID:Not on file Relation to Subscriber:Not on file Name:MILDRED GRACE Subscriber ID:Not on file (Home) Address: [address] [place] [address] Payer ID:Not on file Group ID:Not on file Type:Self Pay Address: [place], [place] [address] [place] [address] MEDICARE Member Subscriber Plan / Payer (Ef fective for All Dates) Name:Mildred Grace Member ID:[id number] Relation to Subscriber:Self Name:MILDRED GRACE Subscriber ID:[id number] Payer ID:Not on file Group ID:Not on file Type:Medicare Address: [address] [place] [address] MEDICARE Member Subscriber Plan / Payer (Ef fective for All Dates) Name:Mildred Grace Member ID:[id number] Relation to Subscriber:Self Name:MILDRED GRACE Subscriber ID:[id number] Payer ID:Not on file Group ID:Not on file Type:Medicare Address: [place] [id number] [place] [address] MEDICARE Member Subscriber Plan / Payer (Ef fective for All Dates) Name:Mildred Grace Member ID:[id number] Relation to Subscriber:Self Name:Mildred Grace Subscriber ID:[id number] Payer ID:Not on file Group ID:Not on file Type:Medicare Address: [place] [id number] Care Teams Clinical Registered Nurse Relationship Specialty Start Date End Date Júnior Puente MD [address] [place] [address] PCP - General 03/02/14
--- OUTSIDE RECORDS SUMMARY | 2024-12-19 11:59 | XMS_ITS | Referral Summary ---
Author Organization [facility] [address] Address [address] [place] [address] Care Team Providers Care Mathematician Name Role Phone Chang Ward MD Unavailable Horacio Ma MD Primary Care Provider [phone] Encounters Date Type Department Care Team Description 12/14/2024 Telephone [facility] [address] [address] Lauren Manzano LPN Forms/questionnaires ([employer]) 12/06/2024 Telephone [facility] [address] [address] Raj Stoddard MD 10/26/2024 7:42 AM CDT - 10/26/2024 11:59 PM CDT Hospital Encounter [facility] [address] [place] [phone] Discharge Disposition: Discharge to home or self care 10/26/2024 10:00 AM CDT Office Visit [facility] [address] [place] [phone] Sukhjinder Galdamez MD Trochanteric bursitis, right hip (Primary Dx); Right hip pain 10/12/2024 Telephone [facility] [address] [address] Raj Stoddard MD ClearFlow OV request from Last 3 Months Allergies [...] 04/12/2024 Assessment & Plan (04/12/2024 11:22 AM AIR INTERCEPT CONTROLLER SUPERVISOR): Started on Fosamax. Continue taking vitamin D. [...] surgery. Updated referral and reached out to [facility] orthopedic surgery Dr. Ward, [...] Rosuvastatin 40mg. Last lipid panel: 02/19/23 LDL=73, KC=985. No changes at this time. Assessment & Plan (08/12/2023 11:01 AM AIR INTERCEPT CONTROLLER SUPERVISOR): Chronic, stable LDL cholesterol goal Continue rosuvastatin Assessment & Plan (05/04/2023 10:39 AM AIR INTERCEPT CONTROLLER SUPERVISOR): Chronic problem, currently taking Rosuvastatin 40mg. Last lipid panel: 02/19/23 LDL=73, ZI=949. No changes at this time. Assessment & Plan (01/19/2023 10:03 AM CDT): Chronic, well controlled Continue Rosuvastatin Assessment & Plan (08/18/2022 10:33 AM CDT): Chronic problem, currently taking Rosuvastatin 40mg. Last lipid panel: 01/30/22 LDL=62, TU=418. No changes at this time. Hypertension associated with stage 2 chronic kidney disease due to type 2 diabetes mellitus 08/17/2022 Assessment & Plan (04/12/2024 11:42 AM AIR INTERCEPT CONTROLLER SUPERVISOR): Normotensive. Continue taking lisinopril. Red flags reviewed. Assessment & Plan (12/16/2023 10:21 AM CDT): Chronic problem, BP controlled on current lisinopril 40mg daily. No changes at this time. Assessment & Plan (09/13/2023 11:43 AM CDT): Normotensive. Continue lisinopril, clonidine. Will continue monitor. Assessment & Plan (05/04/2023 10:39 AM AIR INTERCEPT CONTROLLER SUPERVISOR): Chronic problem, BP controlled on current lisinopril 40mg daily. No changes at this time. Assessment & Plan (08/18/2022 10:33 AM CDT): Chronic problem, BP controlled on current quinapril 40mg daily. No changes at this time. Mild cognitive impairment 05/28/2022 Assessment & Plan (05/28/2022 4:07 PM AIR INTERCEPT CONTROLLER SUPERVISOR): Patient started on donepezil around 01/2022 and [...] barefoot. Assessment & Plan (08/12/2023 11:00 AM AIR INTERCEPT CONTROLLER SUPERVISOR): Foot care discussed Continue gabapentin Assessment & Plan (05/04/2023 11:00 AM AIR INTERCEPT CONTROLLER SUPERVISOR): Chronic problem. Currently taking Gabapentin 300mg bid. [...] aspirin starting Wednesday 11/22. Coronary arteriosclerosis in apache artery 02/06 Overview (09/11/2016): CAD in apache artery Impairment of balance 02/07/2016 Overview (09/11/2016): [...] UNCNTRLD Assessment & Plan (06/08/2024 12:04 PM AIR INTERCEPT CONTROLLER SUPERVISOR): Chronic, uncontrolled with a higher A1c Importance [...] placed. Assessment & Plan (08/12/2023 11:00 AM AIR INTERCEPT CONTROLLER SUPERVISOR): Chronic, stable but not at goal Importance of diet and exercise discussed Continue current regimen with Levemir, Humalog, Ozempic and Farxiga Patient interested in an insulin pump Will get C-peptide, fasting glucose and galen antibody If appropriate, will start process for insulin pump Assessment & Plan (05/04/2023 10:58 AM AIR INTERCEPT CONTROLLER SUPERVISOR): Chronic problem. A1c improved from 8.0% 01/2023 [...] hours). Assessment & Plan (07/09/2022 4:06 PM AIR INTERCEPT CONTROLLER SUPERVISOR): Hba1c was Lab Results Component Value Date [...] Send me a message every week, via [employer], to let me know how you are doing with your sugars and for us to look at your sugars on [employer] Rafaela Cardiac arrhythmia 01/13/2013 Overview (05/04/2021): History [...] stroke Assessment & Plan (05/28/2022 4:08 PM AIR INTERCEPT CONTROLLER SUPERVISOR): Continues tight control of BP, statin and [...] often do you attend chur ch or quaker services? 1 to 4 times per year 08/20/2022 Do you belong to any clubs o r organizations such as confucianist groups, unions, fraternal or athletic groups, or [...] staff should administer the PHQ-9) 0 06/08/2024 [facility] - Occupational [...] in a correction (including now)? No 08/20/2022 PHQ-9 Answer Date [...] on file Legal Sex Female 6:13 AM AIR INTERCEPT CONTROLLER SUPERVISOR Gender Identity Not on file Sexual Orientation Straight 06/08/2024 11 :24 AM AIR INTERCEPT CONTROLLER SUPERVISOR Last Filed Vital Signs Vital Sign Reading Time Taken Comments Blood Pressure 151/69 10/26/2024 9:36 AM CDT Pulse 78 10/26/2024 9:36 AM CDT Temperature 36.2 C (97.2 F) 05/01/2024 7:45 AM AIR INTERCEPT CONTROLLER SUPERVISOR Respiratory Rate 20 06/08/2024 11:34 AM AIR INTERCEPT CONTROLLER SUPERVISOR Oxygen Saturation 97% 05/01/2024 7:45 AM AIR INTERCEPT CONTROLLER SUPERVISOR Inhaled Oxygen Concentration - - Weight 73.5 kg (162 lb) 10/26/2024 9:36 AM CDT Height 152.4 cm (5') 10/26/2024 9:36 AM CDT Body Mass Index 31.64 10/26/2024 9:36 AM CDT Plan of Treatment Not on file Medical Devices Implanted Type Area Investment Banking Associate Device Identifier Shelf Expiration Date Model / Serial / Lot [employer] Dvr [id number] Crosslock [place] Screw Hole Fix Angle Radius Left 1318-21-050 - [id number] Implanted:Qty: 1 on 11/26/2022 by Chang Ward MD at [facility] Left: Wrist [employer] 1318-21-050 / / [employer] Dvr 2.7mm 18mm 3 Lead Thread Lock Taper Head Radius Distal Volar 1312-27-118 - [id number] Implanted:Qty: 1 on 11/26/2022 by Chang Ward MD at [facility] Left: Wrist [employer] 1312-27-118 / / [employer] Dvr 2.7mm 20mm Lock Spine Screw Bone Nonsterile 1312--120 - [id number] Implanted:Qty: 2 on 11/26/2022 by Chang Ward MD at [facility] Left: Wrist [employer] 1312-120 / / [employer] 2.7mm 13mm Nonlock Low Profile Radius Distal Screw Bone [id number] - [id number] Implanted:Qty: 1 on 11/26/2022 by Chang Ward MD at [facility] Left: Wrist [employer] [id number] / / [employer] Dvr 2.7mm 14mm Lock Cortical Screw Bone Nonsterile Latex Free 131-27- - [id number] Implanted:Qty: 2 on 11/26/2022 by Chang Ward MD at [facility] Left: Wrist [employer] 1312-27-114 / / [employer] Dvr 2.7mm 13mm Lock 3 Lead Thread Crosslock Taper Head Radius 131-27- - [id number] Implanted:Qty: 1 on 11/26/2022 by Chang Ward MD at [facility] Left: Wrist [employer] 1312-27-113 / / Procedures Procedure Name Priority Date/Time Associated Diagnosis Comments NC ARTHROCENTESIS ASPIR&/INJ MAJOR JT/BURSA W/O US Routine 10/26/2024 10:00 AM CDT Trochanteric bursitis, right hip XR HIP RIGHT 2 OR 3 VIEWS Schedule Routine, Read Routine (OP Routine) 10/26/2024 9:25 AM CDT Right hip pain POCT HEMOGLOBIN A1C Routine 06/08/2024 1 1:35 AM AIR INTERCEPT CONTROLLER SUPERVISOR Type 2 diabetes mellitus with hyperglycemia, with long-term current use of insulin (HCC) EGFR Routine 05/01/2024 4:27 AM AIR INTERCEPT CONTROLLER SUPERVISOR COLONOSCOPY REPORT Routine 04/04/2024 10 :21 AM [...] EXAM Routine 10/19/2023 SCREENING MAMMOGRAM BILATERAL W HPILIPP Schedule Routine, Read Routine (OP Routine) 04/16/2023 12:56 PM AIR INTERCEPT CONTROLLER SUPERVISOR Encounter for screening mammogram for malignant neoplasm of breast from Last 3 Months or Most Recently Relevant to Health Maintenance Results * NC ARTHROCENTESIS ASPIR&/INJ MAJOR JT/BURSA W/O US (10/26/2024 [...] (ABNORMAL) POCT hemoglobin A1c (06/08/2024 11:35 AM AIR INTERCEPT CONTROLLER SUPERVISOR) Hemoglobin A1C, POC 7.7 4.0 - 5.6 % Comment:None Capillary blood 06/08/2024 1 1:35 AM AIR INTERCEPT CONTROLLER SUPERVISOR Raj Stoddard MD POINT OF CARE TEST ORDERABLES Fi nal Result * eGFR (05/01/2024 4:27 AM AIR INTERCEPT CONTROLLER SUPERVISOR) eGFR 78 >=60 mL/min/1. 73 m2 Comment: [...] last reviewed 2021. Blood 05/01/2024 4:27 AM AIR INTERCEPT CONTROLLER SUPERVISOR 05/01/2024 5:47 AM AIR INTERCEPT CONTROLLER SUPERVISOR us Bro Jameson MD LAB BLOOD ORDERABLES Final Resu lt [facility] Department [place] [address] * Colonoscopy Report -[facility] (04/04/2024 10:21 AM [...] fracture and secondary osteoporosis. Patient takes vitamin-D. Investment Banking Associate/Model: Fetch MD SL (S/N [id number]) CLINICAL INFORMATION: Current height: 62 inches Maximum [...] Rebecca Syed M.D. TW: TW Report ID: [id number] Reading Location: [id number] Procedure Note Rebecca Syed MD - 03/23/2024 EXAM DESCRIPTION: DEXA AXIAL SKELETON BONE DENSITY 1 OR MORE SITES REASON FOR STUDY: 74 y/o year old F with given history of: Post menopausal status. History prior fracture and secondary osteoporosis. Patient takes vitamin-D. Investment Banking Associate/Model: Fetch MD SL (S/N [id number]) CLINICAL INFORMATION: Current height: 62 inches Maximum [...] Rebecca Syed M.D. TW: SHAHEEN Report ID: [id number] Reading Location: [id number] Mer Vazquez NP IMG DXA PROCEDURES Final R esult * (ABNORMAL) Albumin Creatinine Ratio, Urine (02/14/2024 11:16 AM CDT) Albumin Ur 59.2 mg/L Comment: Interpretive Data No reference range established. Current interpretive data was last revised 2018. Testing performed by: [address] [address] Creatinine Ur 187.7 mg/dL [facility] (KARIME) Comment: Interpretive Data No reference range established. Current interpretive data was last revised 2018. Testing performed by: [address] [address] Albumin Creatinine Ratio, Ur 32(H) 1 - 29 mg/g [facility] ([facility]ARIME) Comment:Testing performed by : [address] [address] Urine 02/14/2024 11:1 6 AM CDT 02/14/2024 6:30 PM CDT Mer Vazquez NP LAB URINE ORDERABLES Final Result [facility] ([facility]) [facility] Department of Laboratories [place], [place] [id number] * (ABNORMAL) Lipid panel (02/14/2024 11:16 AM CDT) Pathologist [facility] Cholesterol 138 30 - 199 mg/dL Comment: [...] last revised on 2018. Testing performed by: [address] [address] Triglycerides 175(H) <=149 mg/dL [facility] (KARIME) [...] last revised on 2018. Testing performed by: [facility], [address] [place] [address]., [address] HDL 34(L) >=40 mg/dL [facility] (KARIME) [...] last revised on 2018. Testing performed by: [facility], [address] [place] [address]., [address] LDL, calculated 74 <=129 mg/dL [facility] [...] last revised on 2024. Testing performed by: [facility], [address] [place] [address]., [address] Non-HDL Cholesterol 104 mg/dL [facility] (KARIME) [...] last revised on 2018. Testing performed by: [facility], [address] [place] [address]., [address] Chol/HDL ratio 4 [facility] (KARIME) Comment:Testing performed by : [facility], [address] [place] [address]., [address] Blood 02/14/2024 11:1 6 AM CDT 02/14/2024 6:30 PM CDT Mer Vazquez NP LAB BLOOD ORDERABLES Final Result [facility] ([facility]) [facility] Department [place] [address] * DIABETES EYE EXAM (10/19/2023) SCRIBED DIABETIC DILATED EYE EXAM Normal Historical Provider HEALTH MAINTENANCE Final Result * Screening Mammogram Bilateral W Philipp (04/16/2023 12:56 PM AIR INTERCEPT CONTROLLER SUPERVISOR) Anatomical Region Laterality Modality Breast Bilateral Mammography 04/28/2023 2:18 PM AIR INTERCEPT CONTROLLER SUPERVISOR Impressions 04/28/2023 2:18 PM AIR INTERCEPT CONTROLLER SUPERVISOR There is no mammographic evidence of malignancy. A 1 year screening mammogram is recommended. BI-RADS: 1 - Negative. The patient has been or will be contacted. The patient will be entered into a reminder system with a target due date of 1 year for her next mammogram. Electronically signed by: Jaida Rothman M.D. Narrative 04/28/2023 2:18 PM AIR INTERCEPT CONTROLLER SUPERVISOR EXAMINATION: SCREENING MAMMOGRAM BILATERAL W PHILIPP ORDERING [...] been no suspicious interval change. Mer Vazquez LEARNING ENGINEER IMG MAMMO PROCEDURES Final Result from Last 3 Months or Most Recently Relevant to Health Maintenance Insurance COMMERCIAL GENERIC MEDICARE MEDICARE LOCAL [address] SUPPLEMENT MEDICARE LOCAL [address] MCR SUPPLEMENT Member Subscriber Plan / Payer (Ef fective 1980-Present) Name:Mildred Grace Relation to Subscriber:Self Name:Mildred Grace Payer ID:[id number] Group ID:Not on file Type:COMMERCIAL Address: [place] [id number] Advance Directives For more information, please contact: [phone] Documents on File Type Date Recorded Patient Stationary Engineer Supervisor Expl anation ADVANCE DIRECTIVE 06/19/2022 6:10 PM * Full Code (Latest Code Status on File) Date Activated Date Inactivated Comments 04/29/2024 9:41 PM 05/01/2024 3:08 PM Care Teams Mathematician Relationship Specialty Start Date End Date Horacoi Ma MD [address] [facility] [facility] [place] [address] PCP - General Family Practice 10/02/24 Chang Ward MD Surgeon Orthopedic Surgery 11/26/22
--- OUTSIDE RECORDS SUMMARY | 2024-12-19 11:59 | XMS_ITS | Continuity of Care Document ---
Author Organization [facility] Address [address] [place] [address] Phone Care Team Providers Care Network Support Administrator Name Role Phone Dumont OD, Maicol Unavailable Unavailable Procedures Procedure Date CL Replacement - Vistakon Disp W/BW Soft Tax - Medical Eye Exam, New Patient Refraction Advance Directives Directive Yes / No Effective Date File Name No Information Encounters Encounter Description Practice Location Reason(s) For Visit Diagnoses Date Provider Providers Copied on Encounter [facility], [address] [place] [address] [address], [place], [place], [id number], tel:[phone] [facility] No Information Sep-2 8-200 7 Dumont OD Maicol. [address] [facility] , [address], [place], [place], [facility], [place]. tel:[phone] [facility], [address] [place] [address] [address], [place], [place], [id number], tel:[phone] [facility] No Information Sep-1 3-200 7 Dumont OD Maicol. [address] [facility] , [address], [place], [place], [facility], [place]. tel:[phone] Referring Provider: Bharat Gurrola MD F, [address] [facility], [place], [address]. tel:[phone] Family History Family Member Type Diagnosis Age [...]
--- OUTSIDE RECORDS SUMMARY | 2024-12-19 11:59 | XMS_ITS | Clinical Summary ---
Author Organization [facility] [address] Address [address] [place] [address] Care Team Providers Care Shovel Operator Name Role Phone Chang Ward MD Unavailable Horacio Ma MD Primary Care Provider [phone] Allergies Active Allergy Reactions Criticality Noted Date [...] 04/12/2024 Assessment & Plan (04/12/2024 11:22 AM FOURTH OFFICER): Started on Fosamax. Continue taking vitamin D. [...] surgery. Updated referral and reached out to [facility] orthopedic surgery Dr. Ward, plan for office [...] Rosuvastatin 40mg. Last lipid panel: 02/19/23 LDL=73, NS=020. No changes at this time. Assessment & Plan (08/12/2023 11:01 AM FOURTH OFFICER): Chronic, stable LDL cholesterol goal Continue rosuvastatin Assessment & Plan (05/04/2023 10:39 AM FOURTH OFFICER): Chronic problem, currently taking Rosuvastatin 40mg. Last lipid panel: 02/19/23 LDL=73, TC=512. No changes at this time. Assessment & Plan (01/19/2023 10:03 AM CDT): Chronic, well controlled Continue Rosuvastatin Assessment & Plan (08/18/2022 10:33 AM CDT): Chronic problem, currently taking Rosuvastatin 40mg. Last lipid panel: 01/30/22 LDL=62, GV=645. No changes at this time. Hypertension associated with stage 2 chronic kidney disease due to type 2 diabetes mellitus 08/17/2022 Assessment & Plan (04/12/2024 11:42 AM FOURTH OFFICER): Normotensive. Continue taking lisinopril. Red flags reviewed. Assessment & Plan (12/16/2023 10:21 AM CDT): Chronic problem, BP controlled on current lisinopril 40mg daily. No changes at this time. Assessment & Plan (09/13/2023 11:43 AM CDT): Normotensive. Continue lisinopril, clonidine. Will continue monitor. Assessment & Plan (05/04/2023 10:39 AM FOURTH OFFICER): Chronic problem, BP controlled on current lisinopril 40mg daily. No changes at this time. Assessment & Plan (08/18/2022 10:33 AM CDT): Chronic problem, BP controlled on current quinapril 40mg daily. No changes at this time. Mild cognitive impairment 05/28/2022 Assessment & Plan (05/28/2022 4:07 PM FOURTH OFFICER): Patient started on donepezil around 01/2022 and [...] barefoot. Assessment & Plan (08/12/2023 11:00 AM FOURTH OFFICER): Foot care discussed Continue gabapentin Assessment & Plan (05/04/2023 11:00 AM FOURTH OFFICER): Chronic problem. Currently taking Gabapentin 300mg bid. [...] aspirin starting Wednesday 11/22. Coronary arteriosclerosis in [place] artery 02/06 Overview (09/11/2016): CAD in [place] artery Impairment of balance 02/07/2016 Overview (09/11/2016): [...] UNCNTRLD Assessment & Plan (06/08/2024 12:04 PM FOURTH OFFICER): Chronic, uncontrolled with a higher A1c Importance [...] placed. Assessment & Plan (08/12/2023 11:00 AM FOURTH OFFICER): Chronic, stable but not at goal Importance of diet and exercise discussed Continue current regimen with Levemir, Humalog, Ozempic and Farxiga Patient interested in an insulin pump Will get C-peptide, fasting glucose and galen antibody If appropriate, will start process for insulin pump Assessment & Plan (05/04/2023 10:58 AM FOURTH OFFICER): Chronic problem. A1c improved from 8.0% 01/2023 [...] hours). Assessment & Plan (07/09/2022 4:06 PM FOURTH OFFICER): Hba1c was Lab Results Component Value Date [...] Send me a message every week, via CBRITE, to let me know how you are [...] stroke Assessment & Plan (05/28/2022 4:08 PM FOURTH OFFICER): Continues tight control of BP, statin and [...] Type Department Care Team Description 12/14/2024 Telephone [facility] [address] [address] Lauren Manzano, TABLET MACHINE OPERATOR Forms/questionnaires ([employer]) 12/06/2024 Telephone [facility] [address] [address] Raj Stoddard MD 10/26/2024 10:00 AM CDT Office Visit [facility] [address] [place] [phone] Sukhjinder Galdamez MD Trochanteric bursitis, right hip (Primary Dx); Right hip pain 10/26/2024 7:42 AM CDT - 10/26/2024 11:59 PM CDT Hospital Encounter [facility] [address] [place] [phone] Discharge Disposition: Discharge to home or self care 10/12/2024 Telephone [facility] [address] [phone] Raj Stoddard MD [employer] OV request from Last 3 Months Immunizations [...] aplastic anemia at age 64, was a Protestant Heart attack Mother 2 Mother Myocardial infa rction; mother had massive VT at 72 Diabetes type II Other Family [...] How often do you attend chur or latter-day services? 1 to 4 times per year 08/20/2022 Do you belong to any clubs o r organizations such as yarsani groups, unions, fraternal or athletic groups, or [...] staff should administer the PHQ-9) 0 06/08/2024 [facility] of Occupat ional Health - Occupational Stress [...] place to sleep or slept in a longterm (including now)? No 08/20/2022 PHQ-9 Answer Date [...] on file Legal Sex Female 6:13 AM FOURTH OFFICER Gender Identity Not on file Sexual Orientation Straight 06/08/2024 11 :24 AM FOURTH OFFICER Obstetrics History Para Term AB IAB SAB Ectopic Multiple Livin g Live Births 1 1 Date Outcome GA Total Labor Labor/2nd/3rd Weight Sex Type Anes PTL Sarina A1 A5 Name Clin Term Last Filed Vital Signs Vital Sign Reading Time Taken Comments Blood Pressure 151/69 10/26/2024 9:36 AM CDT Pulse 78 10/26/2024 9:36 AM CDT Temperature 36.2 C (97.2 F) 05/01/2024 7:45 AM FOURTH OFFICER Respiratory Rate 20 06/08/2024 11:34 AM FOURTH OFFICER Oxygen Saturation 97% 05/01/2024 7:45 AM FOURTH OFFICER Inhaled Oxygen Concentration - - Weight 73.5 [...] 04/04/2024, 02/10/2023 Medical Devices Implanted Type Area Network Professional Device Identifier Shelf Expiration Date Model / Serial / Lot [employer] Dvr [id number] Crosslock [place] Screw Hole Fix Angle Radius Left [id number] - [id number] Implanted:Qty: 1 on 11/26/2022 by Chang Ward MD at [facility] Left: Wrist [employer] [id number] / / [employer] Dvr 2.7mm 18mm 3 Lead Thread Lock Taper Head Radius Distal Volar 1312-44-118 - [id number] Implanted:Qty: 1 on 11/26/2022 by Chang Ward MD at [facility] Left: Wrist [employer] 1312-85-118 / / [employer] Dvr 2.7mm 20mm Lock Spine Screw Bone Nonsterile [id number] - [id number] Implanted:Qty: 2 on 11/26/2022 by Chang Ward MD at [facility] Left: Wrist [employer] [id number] / / [employer] 2.7mm 13mm Nonlock Low Profile Radius Distal Screw Bone [id number] - [id number] Implanted:Qty: 1 on 11/26/2022 by Chang Ward MD at [facility] Left: Wrist [employer] [id number] / / [employer] Dvr 2.7mm 14mm Lock Cortical Screw Bone Nonsterile Latex Free 1312-27-114 - [id number] Implanted:Qty: 2 on 11/26/2022 by Chang Ward MD at [facility] Left: Wrist [employer] 1312-27-114 / / [employer] Dvr 2.7mm 13mm Lock 3 Lead Thread Crosslock Taper Head Radius 1312-27-113 - [id number] Implanted:Qty: 1 on 11/26/2022 by Chang Ward MD at [facility] Left: Wrist [employer] 1312-27-113 / / Procedures Procedure Name Priority Date/Time Associated Diagnosis Comments AR ARTHROCENTESIS ASPIR&/INJ MAJOR JT/BURSA W/O US Routine 10/26/2024 10:00 AM CDT Trochanteric bursitis, right hip XR HIP RIGHT 2 OR 3 VIEWS Schedule Routine, Read Routine (OP Routine) 10/26/2024 9:25 AM CDT Right hip pain POCT HEMOGLOBIN A1C Routine 06/08/2024 1 1:35 AM FOURTH OFFICER Type 2 diabetes mellitus with hyperglycemia, with long-term current use of insulin ([facility]) EGFR Routine 05/01/2024 4:27 AM FOURTH OFFICER COLONOSCOPY REPORT Routine 04/04/2024 10 :21 AM [...] Read Routine (OP Routine) 04/16/2023 12:56 PM FOURTH OFFICER Encounter for screening mammogram for malignant neoplasm of breast from Last 3 Months or Most Recently Relevant to Health Maintenance Results * AR ARTHROCENTESIS ASPIR&/INJ MAJOR JT/BURSA W/O US (10/26/2024 [...] (ABNORMAL) POCT hemoglobin A1c (06/08/2024 11:35 AM FOURTH OFFICER) Hemoglobin A1C, POC 7.7 4.0 - 5.6 % Comment:None Capillary blood 06/08/2024 1 1:35 AM FOURTH OFFICER us Raj Stoddard MD POINT OF CARE TEST ORDERABLES Fi nal Result * eGFR (05/01/2024 4:27 AM FOURTH OFFICER) eGFR 78 >=60 mL/min/1. 73 m2 Comment: [...] last reviewed 2021. Blood 05/01/2024 4:27 AM FOURTH OFFICER 05/01/2024 5:47 AM FOURTH OFFICER Bro Jameson MD LAB BLOOD ORDERABLES Final Resu lt [facility]) [facility] Department of [address] [place] [address] * Colonoscopy Report -[facility] (04/04/2024 10:21 AM CDT) Anatomical [...] fracture and secondary osteoporosis. Patient takes vitamin-D. Network Professional/Model: [employer] SL (S/N [id number]) CLINICAL INFORMATION: Current height: 62 inches Maximum [...] Rebecca Syed M.D. TW: TW Report ID: [id number] Reading Location: [id number] Procedure Note Rebecca Syed MD - 03/23/2024 EXAM DESCRIPTION: DEXA AXIAL SKELETON BONE DENSITY 1 OR MORE SITES REASON FOR STUDY: 74 y/o year old F with given history of: Post menopausal status. History prior fracture and secondary osteoporosis. Patient takes vitamin-D. Network Professional/Model: [employer] SL (S/N [id number]) CLINICAL INFORMATION: Current height: 62 inches Maximum [...] Rebecca Syed M.D. TW: TW Report ID: [id number] Reading Location: [place] [address] Mer Vazquez NP [facility] DXA PROCEDURES Final R esult * (ABNORMAL) Albumin Creatinine Ratio, Urine (02/14/2024 11:16 AM CDT) Albumin Ur 59.2 mg/L Comment: Interpretive Data No reference range established. Current interpretive data was last revised 2018. Testing performed by: [facility], [address] [place] [address], [place]., [address] Creatinine Ur 187.7 mg/dL Y[facility]ILEX J[facility] (KARIME) Comment: Interpretive Data No reference range established. Current interpretive data was last revised 2018. Testing performed by: [address] [address] Albumin Creatinine Ratio, Ur 32(H) 1 - 29 mg/g [facility] (KARIME) Comment:Testing performed by : [address] [address] Urine 02/14/2024 11:1 6 AM CDT 02/14/2024 6:30 PM CDT Mer Vazquez NP LAB URINE ORDERABLES Final Result [facility] ([place]) 1 [facility] [place] [address] * (ABNORMAL) Lipid panel (02/14/2024 11:16 AM [...] last revised on 2018. Testing performed by: [facility], [address] [place] [address]., [address] Triglycerides 175(H) <=149 mg/dL [facility] (KARIME) [...] last revised on 2018. Testing performed by: [facility], [address] [place] [address]., [address] HDL 34(L) >=40 mg/dL [facility] (KARIME) [...] last revised on 2018. Testing performed by: [facility], [address] [place] [address]., [address] LDL, calculated 74 <=129 mg/dL Y[facility]ILEX JHA [...] last revised on 2024. Testing performed by: [facility], [address] [place] [address], [place]., [address] Non-HDL Cholesterol 104 mg/dL [facility] (KARIME) [...] last revised on 2018. Testing performed by: [facility], [address] [place] [address]., [address] Chol/HDL ratio 4 REJI Page ABHIJEET (UTICA) Comment:Testing performed by : [facility], [address] [place] [address]., [address] Blood 02/14/2024 11:1 6 AM CDT 02/14/2024 6:30 PM CDT Mer Vazquez RISK CONSULTANT LAB BLOOD ORDERABLES Final Result YAMILEX ABHIJEET ([place]) 1 [facility] Department [place] [address] * DIABETES EYE EXAM (10/19/2023) SCRIBED DIABETIC DILATED EYE EXAM Normal us Historical Provider HEALTH MAINTENANCE Final Result * Screening Mammogram Bilateral W Philipp (04/16/2023 12:56 PM FOURTH OFFICER) Anatomical Region Laterality Modality Breast Bilateral Mammography 04/28/2023 2:18 PM FOURTH OFFICER Impressions 04/28/2023 2:18 PM FOURTH OFFICER There is no mammographic evidence of malignancy. A 1 year screening mammogram is recommended. BI-RADS: 1 - Negative. The patient has been or will be contacted. The patient will be entered into a reminder system with a target due date of 1 year for her next mammogram. Electronically signed by: Jaida Rothman M.D. Narrative 04/28/2023 2:18 PM FOURTH OFFICER EXAMINATION: SCREENING MAMMOGRAM BILATERAL W PHILIPP ORDERING [...] been no suspicious interval change. Mer Vazquez RISK CONSULTANT IMG MAMMO PROCEDURES Final Result from Last 3 Months or Most Recently Relevant to Health Maintenance Insurance COMMERCIAL GENERIC MEDICARE MEDICARE [place] [address] [facility] SUPPLEMENT MEDICARE [place] [address] [facility] SUPPLEMENT Advance Directives For more information, please contact: [phone] Documents on File Type Date Recorded Patient Steel Fabricating Supervisor Expl anation ADVANCE DIRECTIVE 06/19/2022 6:10 PM * Full Code (Latest Code Status on File) Date Activated Date Inactivated Comments 04/29/2024 9:41 PM 05/01/2024 3:08 PM Care Teams Shovel Operator Relationship Specialty Start Date End Date Horacio Ma MD [address] [place] [address] PCP - General Family Practice 10/02/24 Chang Ward MD Surgeon Orthopedic Surgery 11/26/22
--- OUTSIDE RECORDS SUMMARY | 2024-12-19 11:59 | XMS_ITS | Encounter Summary ---
Author Organization [facility] Address [address] [place] [address] Care Team Providers Care Vacuum Closing Machine Operator Name Role Phone Chang Ward MD Unavailable [phone] Horacio Ma MD Primary Care Provider [phone] Reason for Visit * Reason Onset Date Comments Forms/questionnaires 12/14/2024 SeeJay Encounter Details Date Type Department Care Team (Late st Contact Info) Description 12/14/2024 Telephone [facility] [place] [address] [phone] Lauren Manzano LPN Forms/questionnaires ([employer]) Social History Tobacco Use Types Packs/Day Years [...] week 08/20/2022 How often do you attend [facility] services? 1 to 4 times per year 08/20/2022 Do you belong to any clubs o r organizations such as shinto groups, unions, fraternal or athletic groups, or [...] staff should administer the PHQ-9) 0 06/08/2024 [facility] of Occupat ional Health - [...] health care facility (including now)? No 08/20/2022 PHQ-9 Answer Date [...] on file Legal Sex Female 6:13 AM ELECTRICAL ACCESSORIES I ASSEMBLER Gender Identity Not on file Sexual Orientation Straight 06/08/2024 11 :24 AM ELECTRICAL ACCESSORIES I ASSEMBLER documented as of this encounter Miscellaneous Notes [...] on filedocumented in this encounter Care Teams Vacuum Closing Machine Operator Relationship Specialty Start Date End Date Horacio Ma MD [address] [place] [address] PCP - General Family Practice 10/02/24 Chang Ward MD Surgeon Orthopedic Surgery 11/26/22 documented as of this encounter
--- OUTSIDE RECORDS SUMMARY | 2024-12-19 12:03 | XMS_ITS | Continuity of Care Document ---
Author Organization [facility] Address [address] [place] [address] Phone Care Team Providers Care Career Technical Education Instructor Name Role Phone Dumont OD, Maicol Unavailable Unavailable Procedures Procedure Date CL Replacement - Vistakon Disp W/BW Soft Tax - Medical Eye Exam, New Patient Refraction Advance Directives Directive Yes / No Effective Date File Name No Information Encounters Encounter Description Practice Location Reason(s) For Visit Diagnoses Date Provider Providers Copied on Encounter [facility], [address] [place] [address] [address], [place], [place], [id number], tel:[phone] [facility] No Information Sep-2 8-200 7 Dumont OD Maicol. [address] [facility] [address] , [address], [place], [place], [facility], [place]. tel:[phone] [facility], [address] [place] [address] [address], [place], [place], [id number], tel:[phone] [facility] No Information Sep-1 3-200 7 Dumont OD Maicol. [address] [facility] [address] , [address], [place], [place], [facility], [place]. tel:[phone] Referring Provider: Bharat Gurrola MD F, [address] [facility], [place], [address]. tel:[phone] Family History Family Member Type Diagnosis Age [...]
[2024-12-19 13:16] LABS: Lipase 179 U/L (23-300)
[2024-12-19 14:19] LABS: Thyroid Stimulating Hormone 0.017 uIU/mL (0.465-4.680)
== END 2024-12-19 12:02 | disposition home or self-care (01) ==
PROVIDERS: PCP Family Medicine; Visit Provider Family Medicine
DX: S32.010A Wedge compression fracture of first lumbar vertebra, initial encounter for closed fracture (principal); X58.XXXA Exposure to other specified factors, initial encounter; R53.83 Other fatigue; R10.9 Unspecified abdominal pain
CPT/HCPCS: 36415; 72072; 83690; 84443

== ENCOUNTER 2025-01-01 12:32 | Emergency (ER) | payer MEDICARE, OTHER, SELFPAY ==
--- NOTE | ~2025-01-01 | CT_ITS ---
EXAMINATION: CT abdomen pelvis w con DATE: 01/01/2025 16:13 INDICATION: Left abdominal pain TECHNIQUE: Computed tomography (CT) of the abdomen and pelvis was performed without intravenous contr ast. The dose-length product was 1123.37 mGy-cm. Automated exposure control and iterative reconstruct ion technique were employed. COMPARISON: CT dated 12/07/2024. FINDINGS: Heart size normal. No significant pleural or pericardial effusion. Status post cholecystect judd. The liver, spleen, pancreas, adrenal glands are unremarkable. There are bilateral renal cysts. S evere lumbar spondylosis. Nonobstructive bowel gas pattern. Normal appendix. Colonic diverticulosis w ithout evidence for acute diverticulitis. No abnormal pelvic masses or fluid collections. Uterus is s urgically absent. No free air or free fluid. There is atherosclerosis of the aorta without aneurysm. No lymphadenopathy. IMPRESSION: 1. No acute abdominal abnormality. Reviewed, dictated and finalized at location B.
--- OUTSIDE RECORDS SUMMARY | 2025-01-01 12:34 | XMS_ITS | Clinical Summary ---
Author Organization [facility] [place] [address] Address [address] [place] [address] Care Team Providers Care Hand Coper Name Role Phone Chang Ward MD Unavailable [phone] Horacio Ma MD Primary Care Provider [phone] Allergies Active Allergy Reactions Criticality Noted Date [...] Pen Needle 31 gauge x 16 needle 3 Active pen needle, diabetic (BD [...] a day 45 mL 4 4 Active alendronate (FOSAMAX) 70 mg tabletIndication [...] EVERY DAY 90 tablet 3 5 Active dicyclomine (BENTYL) 10 mg capsule TAKE 1 CAPSULE BY MOUTH THREE TIMES A DAY FOR ABDOMINAL CRAMPING [address] (PROTONIX) 40 mg EC tablet TAKE 1 TABLET ORALLY EVERY MORNING FOR 30 DAYS 5 Active Vowst capsule 5 Active Gemtesa 75 mg tablet 5 Active lisinopriL (PRINIVIL,ZESTRI L) 40 mg tablet TAKE 1 TABLET EVERY DAY 90 tablet 3 5 Active ketorolac (TORADOL) 10 mg tablet Take 1 tablet (10 mg total) by mouth every 6 (six) hours as needed for pain Active Active Problems Problem Noted Date Diagnosed Date Troponin level elevated 04/29/2024 COVID 04/29/2024 Age-related osteoporosis wit hout current pathological fracture 04/12/2024 Assessment & Plan (04/12/2024 11:22 AM SHIFT PRODUCTION SUPERVISOR): Started on Fosamax. Continue taking vitamin [...] Updated referral and reached out to [facility] orthopedic surgery Dr. Ward, plan for office [...] Rosuvastatin 40mg. Last lipid panel: 02/19/23 LDL=73, GE=615. No changes at this time. Assessment & Plan (08/12/2023 11:01 AM SHIFT PRODUCTION SUPERVISOR): Chronic, stable LDL cholesterol goal Continue rosuvastatin Assessment & Plan (05/04/2023 10:39 AM SHIFT PRODUCTION SUPERVISOR): Chronic problem, currently taking Rosuvastatin 40mg. Last lipid panel: 02/19/23 LDL=73, XO=577. No changes at this time. Assessment & Plan (01/19/2023 10:03 AM CDT): Chronic, well controlled Continue Rosuvastatin Assessment & Plan (08/18/2022 10:33 AM CDT): Chronic problem, currently taking Rosuvastatin 40mg. Last lipid panel: 01/30/22 LDL=62, CW=520. No changes at this time. Hypertension associated with stage 2 chronic kidney disease due to type 2 diabetes mellitus 08/17/2022 Assessment & Plan (04/12/2024 11:42 AM SHIFT PRODUCTION SUPERVISOR): Normotensive. Continue taking lisinopril. Red flags reviewed. Assessment & Plan (12/16/2023 10:21 AM CDT): Chronic problem, BP controlled on current lisinopril 40mg daily. No changes at this time. Assessment & Plan (09/13/2023 11:43 AM CDT): Normotensive. Continue lisinopril, clonidine. Will continue monitor. Assessment & Plan (05/04/2023 10:39 AM SHIFT PRODUCTION SUPERVISOR): Chronic problem, BP controlled on current lisinopril 40mg daily. No changes at this time. Assessment & Plan (08/18/2022 10:33 AM CDT): Chronic problem, BP controlled on current quinapril 40mg daily. No changes at this time. Mild cognitive impairment 05/28/2022 Assessment & Plan (05/28/2022 4:07 PM SHIFT PRODUCTION SUPERVISOR): Patient started on donepezil around 01/2022 [...] barefoot. Assessment & Plan (08/12/2023 11:00 AM SHIFT PRODUCTION SUPERVISOR): Foot care discussed Continue gabapentin Assessment & Plan (05/04/2023 11:00 AM SHIFT PRODUCTION SUPERVISOR): Chronic problem. Currently taking Gabapentin 300mg [...] aspirin starting Wednesday 11/22. Coronary arteriosclerosis in [place] artery 02/06 Overview (09/11/2016): CAD in [place] artery Impairment of balance 02/07/2016 Overview (09/11/2016): Balance disorder Episodic lightheadedness 03/08/2014 Fall at home, initial encounter 03/08/2014 Heart disease 10/21/2013 Overview (12/25/2021): HYPERTENSION NOS Occlusion and stenosis of unspecified carotid ar shannon 03/02/2013 Overview (05/04/2021): Carotid disease, bilateral Diabetes mellitus 01/13/2013 Overview (12/25/2021): DMII WO CMP UNCNTRLD Overview: DMII WO CMP UNCNTRLD Overview: DMII WO [facility] UNCNTRLD Assessment & Plan (06/08/2024 12:04 PM SHIFT PRODUCTION SUPERVISOR): Chronic, uncontrolled with a higher A1c [...] placed. Assessment & Plan (08/12/2023 11:00 AM SHIFT PRODUCTION SUPERVISOR): Chronic, stable but not at goal Importance of diet and exercise discussed Continue current regimen with Levemir, Humalog, Ozempic and Farxiga Patient interested in an insulin pump Will get C-peptide, fasting glucose and galen antibody If appropriate, will start process for insulin pump Assessment & Plan (05/04/2023 10:58 AM SHIFT PRODUCTION SUPERVISOR): Chronic problem. A1c improved from 8.0% [...] hours). Assessment & Plan (07/09/2022 4:06 PM SHIFT PRODUCTION SUPERVISOR): Hba1c was Lab Results Component Value [...] Send me a message every week, via OpenX, to let me know how you are [...] stroke Assessment & Plan (05/28/2022 4:08 PM SHIFT PRODUCTION SUPERVISOR): Continues tight control of BP, statin [...] Encounters Date Type Department Care Team Description 12/21/2024 8:30 AM CDT Office Visit [facility] Orthopedics and Sports Medicine [address] [place] [address] [address] [address] Sukhjinder Galdamez MD Right knee pain, unspecified chronicity (Primary Dx); Pain due to total right knee replacement, initial encounter 12/21/2024 7:41 AM CDT - 12/21/2024 11:59 PM CDT Hospital Encounter [facility] Medical [facility] Orthopedics and Sports Medicine [address] [place] [address] [address] [place] [address] Discharge Disposition: Discharge to home or self care 12/14/2024 Telephone [facility] [address] [address] Lauren Manzano LPN Forms/questionnaires ([employer]) 12/06/2024 Telephone [facility] [address] [address] Raj Stoddard MD 10/26/2024 10:00 AM CDT Office Visit [facility] Medical [facility] Orthopedics and Sports Medicine [address] [place] [address] [address] [place] [address] Sukhjinder Galdamez MD Trochanteric bursitis, right hip (Primary Dx); Right hip pain 10/26/2024 7:42 AM CDT - 10/26/2024 11:59 PM CDT Hospital Encounter [facility] Medical [facility] Orthopedics and Sports Medicine [address] [place] [address] [address] [place] [address] Discharge Disposition: Discharge to home or self care 10/12/2024 Telephone [facility] [address] [place] [address] [address] [address] Raj Stoddard MD [employer] OV request from Last 3 Months Immunizations [...] aplastic anemia at age 64, was a Restorationist Heart attack Mother 2 Mother Myocardial infa rction; mother had massive AR at 72 Diabetes type II Other Family [...] How often do you attend chur or catholic services? 1 to 4 times per year 08/20/2022 Do you belong to any clubs o r organizations such as holiness groups, unions, fraternal or athletic groups, or [...] PHQ-9) 0 06/08/2024 [facility] - Occupational Stress Questionnaire Answer Date Recorded [...] place to sleep or slept in a alf (including now)? No 08/20/2022 PHQ-9 Answer Date [...] on file Legal Sex Female 6:13 AM SHIFT PRODUCTION SUPERVISOR Gender Identity Not on file Sexual Orientation Straight 06/08/2024 11 :24 AM SHIFT PRODUCTION SUPERVISOR Obstetrics History Para Term AB IAB SAB [...] 36.2 C (97.2 F) 05/01/2024 7:45 AM SHIFT PRODUCTION SUPERVISOR Respiratory Rate 20 06/08/2024 11:34 AM SHIFT PRODUCTION SUPERVISOR Oxygen Saturation 97% 05/01/2024 7:45 AM SHIFT PRODUCTION SUPERVISOR Inhaled Oxygen Concentration - - Weight 77.1 kg (170 lb) 12/21/2024 8:30 AM CDT Height 152.4 cm (5') 12/21/2024 8:30 AM CDT Body Mass Index 33.2 12/21/2024 8:30 AM CDT Plan of Treatment Health Maintenance [...] 04/04/2024, 02/10/2023 Medical Devices Implanted Type Area Cartographic Aide Device Identifier Shelf Expiration Date Model / Serial / Lot [employer] Dvr [id number] Crosslock [place] Screw Hole Fix Angle Radius Left 1318-21050 - [id number] Implanted:Qty: 1 on 11/26/2022 by Chang Ward MD at [facility] Left: Wrist [employer] [id number] / / [employer] Dvr 2.7mm 18mm 3 Lead Thread Lock Taper Head Radius Distal Volar 1312-27-118 - [id number] Implanted:Qty: 1 on 11/26/2022 by Chang Ward MD at [facility] Left: Wrist [employer] 1312-27-118 / / [employer] Dvr 2.7mm 20mm Lock Spine Screw Bone Nonsterile 1312-27-120 - [id number] Implanted:Qty: 2 on 11/26/2022 by Chang Ward MD at [facility] Left: Wrist [employer] 1312-27-120 / / [employer] 2.7mm 13mm Nonlock Low Profile Radius Distal Screw Bone [id number] - [id number] Implanted:Qty: 1 on 11/26/2022 by Chang Ward MD at [facility] Left: Wrist [employer] [id number] / / [employer] Dvr 2.7mm 14mm Lock Cortical Screw Bone Nonsterile Latex Free 1312-27-114 - [id number] Implanted:Qty: 2 on 11/26/2022 by Chang Ward MD at [facility] Left: Wrist [employer] 1312-27-114 / / [employer] Dvr 2.7mm 13mm Lock 3 Lead Thread Crosslock Taper Head Radius 1312-27- - [id number] Implanted:Qty: 1 on 11/26/2022 by Chang Ward MD at [facility] Left: Wrist [employer] 1312-27-113 / / Procedures Procedure Name Priority Date/Time Associated Diagnosis Comments XR KNEE RIGHT 3 VIEWS Schedule Routine, Read Routine (OP Routine) 12/21/2024 8:35 AM CDT Right knee pain, unspecified chronicity [place] ARTHROCENTESIS ASPIR&/INJ MAJOR JT/BURSA W/O US Routine 10/26/2024 10:00 AM CDT Trochanteric bursitis, right hip XR HIP RIGHT 2 OR 3 VIEWS Schedule Routine, Read Routine (OP Routine) 10/26/2024 9:25 AM CDT Right hip pain POCT HEMOGLOBIN A1C Routine 06/08/2024 1 1:35 AM SHIFT PRODUCTION SUPERVISOR Type 2 diabetes mellitus with hyperglycemia, with long-term current use of insulin (HCC) EGFR Routine 05/01/2024 4:27 AM SHIFT PRODUCTION SUPERVISOR COLONOSCOPY REPORT Routine 04/04/2024 10 :21 [...] (HCC) Encounter for Medicare annual wellness exam HM DIABETES EYE EXAM Routine 10/19/2023 SCREENING MAMMOGRAM BILATERAL W PHILIPP Schedule Routine, Read Routine (OP Routine) 04/16/2023 12:56 PM SHIFT PRODUCTION SUPERVISOR Encounter for screening mammogram for malignant neoplasm of breast from Last 3 Months or Most Recently Relevant to Health Maintenance Results * XR Knee Right 3 View (12/21/2024 8:35 AM CDT) Anatomical Region Laterality Modality Lower Extremities, Knee Right Digital Radiography Narrative 12/21/2024 12:21 PM CDT Three component cemented posterior stabilized total knee arthroplasty. There is slight valgus positioning of the tibial component which may be the result of minor subsidence and possibly aseptic loosening. No obvious radiographic lucent lines around the femur or other signs of loosening. us Sukhjinder Galdamez MD IMG XR PROCEDURES Final Result * [place] ARTHROCENTESIS ASPIR&/INJ MAJOR JT/BURSA W/O US (10/26/2024 [...] (ABNORMAL) POCT hemoglobin A1c (06/08/2024 11:35 AM SHIFT PRODUCTION SUPERVISOR) Hemoglobin A1C, POC 7.7 4.0 - 5.6 % Comment:None Capillary blood 06/08/2024 1 1:35 AM SHIFT PRODUCTION SUPERVISOR Result [facility] Raj Stoddard MD POINT OF CARE TEST ORDERABLES Fi nal Result * eGFR (05/01/2024 4:27 AM SHIFT PRODUCTION SUPERVISOR) eGFR 78 >=60 mL/min/1. 73 m2 [...] last reviewed 2021. Blood 05/01/2024 4:27 AM SHIFT PRODUCTION SUPERVISOR 05/01/2024 5:47 AM SHIFT PRODUCTION SUPERVISOR Bro Jameson MD LAB BLOOD ORDERABLES Final Resu lt [facility] [place]) 0 [facility] Department [place] [address] * Colonoscopy Report -[facility] (04/04/2024 10:21 AM CDT) Anatomical [...] fracture and secondary osteoporosis. Patient takes vitamin-D. Cartographic Aide/Model: FiberSensing (S/N [id number]) CLINICAL INFORMATION: Current height: 62 inches Maximum [...] Rebecca Syed M.D. TW: TW Report ID: [id number] Reading Location: [id number] Procedure Note Rebecca Syed MD - 03/23/2024 EXAM DESCRIPTION: DEXA AXIAL SKELETON BONE DENSITY 1 OR MORE SITES REASON FOR STUDY: 74 y/o year old F with given history of: Post menopausal status. History prior fracture and secondary osteoporosis. Patient takes vitamin-D. Cartographic Aide/Model: Complete[employer] Discovery SL (S/N [id number]) CLINICAL INFORMATION: Current height: 62 inches Maximum [...] Rebecca Syed M.D. TW: TW Report ID: [id number] Reading Location: [id number] Mer Vazquez NP IMG DXA PROCEDURES Final R esult * (ABNORMAL) Albumin Creatinine Ratio, Urine (02/14/2024 11:16 AM CDT) Albumin Ur 59.2 mg/L Comment: Interpretive Data No reference range established. Current interpretive data was last revised 2018. Testing performed by: [facility], [address] [place] [address]., [address] Creatinine Ur 187.7 mg/dL [facility] (KARIME) Comment: Interpretive Data No reference range established. Current interpretive data was last revised 2018. Testing performed by: [facility], [address] [place] [address]., [address] Albumin Creatinine Ratio, Ur 32(H) 1 - 29 mg/g [facility] (KARIME) Comment:Testing performed by : [address] [address] Urine 02/14/2024 11:1 6 AM CDT 02/14/2024 6:30 PM CDT Mer Vazquez NP LAB URINE ORDERABLES Final Result [facility] (KARIME) 1 [facility] Department [place] [address] * (ABNORMAL) Lipid panel (02/14/2024 11:16 AM [...] last revised on 2018. Testing performed by: [facility], [address] [place] [address]., [address] Triglycerides 175(H) <=149 mg/dL [facility] (KARIME) [...] last revised on 2018. Testing performed by: [facility], [address] [place] [address]., [address] HDL 34(L) >=40 mg/dL [facility] (KARIME) [...] last revised on 2018. Testing performed by: [facility], [address] [place] [address]., [address] LDL, calculated 74 <=129 mg/dL [facility] (KARIME) Comment: Interpretive Data [...] last revised on 2024. Testing performed by: [address] [address] Non-HDL Cholesterol 104 mg/dL [facility] (KARIME) [...] last revised on 2018. Testing performed by: [address] [address] Chol/HDL ratio 4 RE[facility]I [facility] (KARIME) Comment:Testing performed by : [address] [address] Blood 02/14/2024 11:1 6 AM CDT 02/14/2024 6:30 PM CDT us Mer Vazquez NP LAB BLOOD ORDERABLES Final Result [facility] (KARIME) 1 [facility] Department [place] [address] * DIABETES EYE EXAM (10/19/2023) SCRIBED DIABETIC DILATED EYE EXAM Normal Historical Provider HEALTH MAINTENANCE Final Result * Screening Mammogram Bilateral W Philipp (04/16/2023 12:56 PM SHIFT PRODUCTION SUPERVISOR) Anatomical Region Laterality Modality Breast Bilateral Mammography 04/28/2023 2:18 PM SHIFT PRODUCTION SUPERVISOR Impressions 04/28/2023 2:18 PM SHIFT PRODUCTION SUPERVISOR There is no mammographic evidence of malignancy. A 1 year screening mammogram is recommended. BI-RADS: 1 - Negative. The patient has been or will be contacted. The patient will be entered into a reminder system with a target due date of 1 year for her next mammogram. Electronically signed by: Jaida Rothman M.D. Narrative 04/28/2023 2:18 PM SHIFT PRODUCTION SUPERVISOR EXAMINATION: SCREENING MAMMOGRAM BILATERAL W PHILIPP [...] been no suspicious interval change. Mer Vazquez SUPERVISOR [facility] IMG MAMMO PROCEDURES Final Result from Last 3 Months or Most Recently Relevant to Health Maintenance Insurance COMMERCIAL GENERIC MEDICARE MEDICARE LOCAL [address] SUPPLEMENT MEDICARE [place] [address] [address] [facility] SUPPLEMENT Advance Directives For more information, please contact: [phone] Documents on File Type Date Recorded Patient Education Director Expl anation ADVANCE DIRECTIVE 06/19/2022 6:10 PM * Full Code (Latest Code Status on File) Date Activated Date Inactivated Comments 04/29/2024 9:41 PM 05/01/2024 3:08 PM Care Teams Hand Coper Relationship Specialty Start Date End Date Horacio Ma MD [address] [place] [address] PCP - General Family Practice 10/02/24 Chang Ward MD Surgeon Orthopedic Surgery 11/26/22
--- OUTSIDE RECORDS SUMMARY | 2025-01-01 12:34 | XMS_ITS | Clinical Summary ---
Author Organization [facility] Address [address] [place] [address] Care Team Providers Care Waxer Operator Name Role Phone Júnior Puente MD Primary Care Provider [phone] Source Comments [facility],non-owned Affiliates and Associated Physician Practices is amultiple site organization consisting of ambulatory clinics and hospital sitesin [place], [place], [place] and [place]. This disclosure is being madepursuant to the Care Everywhere program and may not contain all information available regarding this patient. Last updated 18.[facility] Allergies No known active allergies Medications * [...] on file Legal Sex Female 5:23 PM AIRWAY TRAFFIC CONTROLLER Gender Identity Not on file Sexual Orientation Not on file Last Filed Vital Signs Vital Sign Reading Time Taken Comments Blood Pressure 118/58 07/23/2020 11:30 AM AIRWAY TRAFFIC CONTROLLER Pulse 74 07/23/2020 11:30 AM AIRWAY TRAFFIC CONTROLLER Temperature 36.5 C (97.7 F) 07/23/2020 10:19 AM AIRWAY TRAFFIC CONTROLLER Respiratory Rate 6 07/23/2020 11:30 AM AIRWAY TRAFFIC CONTROLLER Oxygen Saturation 94% 07/23/2020 11:30 AM AIRWAY TRAFFIC CONTROLLER Inhaled Oxygen Concentration - - Weight 70.8 kg (156 lb) 07/23/2020 8:34 AM AIRWAY TRAFFIC CONTROLLER Height 157.5 cm (5' 2) 07/23/2020 8:34 AM AIRWAY TRAFFIC CONTROLLER Body Mass Index 28.53 07/23/2020 8:34 AM AIRWAY TRAFFIC CONTROLLER Plan of Treatment Health Maintenance Due Date [...] PANEL (CALCIUM TOTAL) STAT 07/23/2020 8:14 AM AIRWAY TRAFFIC CONTROLLER Preop examination HEMOGLOBIN A1C Routine 01/12/2013 2:30 AM CDT from Last 3 Months or Most Recently Relevant to Health Maintenance Results * (ABNORMAL) BASIC METABOLIC PANEL (CALCIUM TOTAL) (07/23/2020 8:14 AM AIRWAY TRAFFIC CONTROLLER) BUN 13 7 - 26 mg/dL 07/23/2020 8:48 AM [facility] Creatinine 0.7 0.6 - 1.2 mg/dL 07/23/2020 8:48 AM [facility] Sodium 141 136 - 145 mmol/L 07/23/2020 8:48 AM [facility] Potassium 3.3(L) 3.5 - 4.5 mmol/L 07/23/2020 8:48 AM [facility] Chloride 106 98 - 107 mmol/L 07/23/2020 8:48 AM [facility] CO2 24 22 - 29 mmol/L 07/23/2020 8:48 AM [facility] Glucose 167(H) 70 - 115 mg/dL 07/23/2020 8:48 AM [facility] Calcium 8.5 8.4 - 10.2 mg/dL 07/23/2020 8:48 AM [facility] Anion Gap 14 8 - 18 07/23/2020 8:48 AM [facility] BUN/Creatinine Ratio 19 7 - 23 07/23/2020 8:48 AM [facility] Osmolality Calculated 296 270 - 300 mOsm/kg 07/23/2020 8:48 AM [facility] eGFR >60 >60 mL/min/1.7 3 m2 07/23/2020 8:48 AM AIRWAY TRAFFIC CONTROLLER [facility] Blood BLOOD SPECIMEN / Unknown Venipuncture / Unknown 07/23/2020 8:14 AM AIRWAY TRAFFIC CONTROLLER 07/23/2020 8:18 AM AIRWAY TRAFFIC CONTROLLER us Rod Olivas MD LAB - CHEMISTRY ORDERABLES Final Result [facility] [address] [place] [address], [facility] [phone] * (ABNORMAL) HEMOGLOBIN A1C (01/12/2013 2:30 AM CDT) Hemoglobin A1c 7.1(H) 4.4 - 6.3 % [facility] Estimated Average Glucose 157 mg/dL [facility] Blood specimen (specimen) 01/12/2013 2:30 AM CDT 01/12/2013 2:55 AM CDT Arturo Ernst MD LAB - CHEMISTRY ORDERABLES F inal Result [facility] [address] [place], [place] [address] [phone] from Last 3 Months or Most Recently Relevant to Health Maintenance Insurance MEDICARE MEDICARE COMMERCIAL GENERIC COMMERCIAL GENERIC SELF PAY NO INSURANCE Member Subscriber Plan / Payer (Ef fective for All Dates) Name:Mildred Grace Member ID:Not on file Relation to Subscriber:Not on file Name:MILDRED GRACE Subscriber ID:Not on file (Home) Address: [address] [place] [address] Payer ID:Not on file Group ID:Not on file Type:Self Pay Address: [place], [place] [address] [place] [address] MEDICARE Member Subscriber Plan / Payer (Ef fective for All Dates) Name:Mildred Grace Member ID:[id number] Relation to Subscriber:Self Name:MILDRED GRACE Subscriber ID:[id number] Payer ID:Not on file Group ID:Not on file Type:Medicare Address: [address] [place] [address] MEDICARE Member Subscriber Plan / Payer (Ef fective for All Dates) Name:Mildred Grace Member ID:[id number] Relation to Subscriber:Self Name:MILDRED GRACE Subscriber ID:[id number] Payer ID:Not on file Group ID:Not on file Type:Medicare Address: [place] [id number] [place] [address] MEDICARE Member Subscriber Plan / Payer (Ef fective for All Dates) Name:Mildred Grace Member ID:[id number] Relation to Subscriber:Self Name:Mildred Grace Subscriber ID:[id number] Payer ID:Not on file Group ID:Not on file Type:Medicare Address: [place] [id number] Care Teams Waxer Operator Relationship Specialty Start Date End Date Júnior Puente MD [address] [place] [address] PCP - General 03/02/14
--- OUTSIDE RECORDS SUMMARY | 2025-01-01 12:34 | XMS_ITS | Referral Summary ---
Author Organization [facility] [address] Address [address] [place] [address] Care Team Providers Care Hand Violin Maker Name Role Phone Chang Ward MD Unavailable Horacio Ma MD Primary Care Provider [phone] Encounters Date Type Department Care Team Description 12/21/2024 7:41 AM CDT - 12/21/2024 11:59 PM CDT Hospital Encounter [facility] [address] [place] [phone] Discharge Disposition: Discharge to home or self care 12/21/2024 8:30 AM CDT Office Visit [facility] [address] [place] [phone] Sukhjinder Galdamez MD Right knee pain, unspecified chronicity (Primary Dx); Pain due to total right knee replacement, initial encounter 12/14/2024 Telephone [facility] [address] [place] [phone] Lauren Manzano LPN Forms/questionnaires ([employer] Messenger) 12/06/2024 Telephone [facility] [address] [phone] Raj Stoddard MD 10/26/2024 7:42 AM CDT - 10/26/2024 11:59 PM CDT Hospital Encounter [facility] [address] [facility] [address] [place] [phone] Discharge Disposition: Discharge to home or self care 10/26/2024 10:00 AM CDT Office Visit [facility] [address] [place] [address] [address] [place] [phone] Sukhjinder Galdamez MD Trochanteric bursitis, right hip (Primary Dx); Right hip pain 10/12/2024 Telephone [facility] [address] [place] [address] Raj St[address]ard MD [address] OV request from Last 3 Months Allergies [...] Ultra-Fine Mini Pen Needle) 31 gauge x /16 needle USE TO TAKE INSULIN 4 X [...] 04/12/2024 Assessment & Plan (04/12/2024 11:22 AM INDUSTRIAL ROOF PLUMBER): Started on Fosamax. Continue taking vitamin D. [...] surgery. Updated referral and reached out to [facility] orthopedic surgery Dr. Ward, plan [...] Rosuvastatin 40mg. Last lipid panel: 02/19/23 LDL=73, AP=692. No changes at this time. Assessment & Plan (08/12/2023 11:01 AM INDUSTRIAL ROOF PLUMBER): Chronic, stable LDL cholesterol goal Continue rosuvastatin Assessment & Plan (05/04/2023 10:39 AM INDUSTRIAL ROOF PLUMBER): Chronic problem, currently taking Rosuvastatin 40mg. Last lipid panel: 02/19/23 LDL=73, TL=245. No changes at this time. Assessment & Plan (01/19/2023 10:03 AM CDT): Chronic, well controlled Continue Rosuvastatin Assessment & Plan (08/18/2022 10:33 AM CDT): Chronic problem, currently taking Rosuvastatin 40mg. Last lipid panel: 01/30/22 LDL=62, HG=513. No changes at this time. Hypertension associated with stage 2 chronic kidney disease due to type 2 diabetes mellitus 08/17/2022 Assessment & Plan (04/12/2024 11:42 AM INDUSTRIAL ROOF PLUMBER): Normotensive. Continue taking lisinopril. Red flags reviewed. Assessment & Plan (12/16/2023 10:21 AM CDT): Chronic problem, BP controlled on current lisinopril 40mg daily. No changes at this time. Assessment & Plan (09/13/2023 11:43 AM CDT): Normotensive. Continue lisinopril, clonidine. Will continue monitor. Assessment & Plan (05/04/2023 10:39 AM INDUSTRIAL ROOF PLUMBER): Chronic problem, BP controlled on current lisinopril 40mg daily. No changes at this time. Assessment & Plan (08/18/2022 10:33 AM CDT): Chronic problem, BP controlled on current quinapril 40mg daily. No changes at this time. Mild cognitive impairment 05/28/2022 Assessment & Plan (05/28/2022 4:07 PM INDUSTRIAL ROOF PLUMBER): Patient started on donepezil around 01/2022 and [...] barefoot. Assessment & Plan (08/12/2023 11:00 AM INDUSTRIAL ROOF PLUMBER): Foot care discussed Continue gabapentin Assessment & Plan (05/04/2023 11:00 AM INDUSTRIAL ROOF PLUMBER): Chronic problem. Currently taking Gabapentin 300mg bid. [...] aspirin starting Wednesday 11/22. Coronary arteriosclerosis in [place] artery 02/06 Overview (09/11/2016): CAD in [place] artery Impairment of balance 02/07/2016 Overview (09/11/2016): [...] UNCNTRLD Assessment & Plan (06/08/2024 12:04 PM INDUSTRIAL ROOF PLUMBER): Chronic, uncontrolled with a higher A1c Importance [...] placed. Assessment & Plan (08/12/2023 11:00 AM INDUSTRIAL ROOF PLUMBER): Chronic, stable but not at goal Importance of diet and exercise discussed Continue current regimen with Levemir, Humalog, Ozempic and Farxiga Patient interested in an insulin pump Will get C-peptide, fasting glucose and galen antibody If appropriate, will start process for insulin pump Assessment & Plan (05/04/2023 10:58 AM INDUSTRIAL ROOF PLUMBER): Chronic problem. A1c improved from 8.0% 01/2023 [...] hours). Assessment & Plan (07/09/2022 4:06 PM INDUSTRIAL ROOF PLUMBER): Hba1c was Lab Results Component Value Date [...] Send me a message every week, via ZarthCode, to let me know how you are [...] take 10 units Stay on Ozempic and Scottxiga Will consider an insulin pump Cerebrovascular accident (CVA) 01/11/2013 Overview (05/04/2021): Overview: R caudate and putamen stroke Overview: R caudate and putamen stroke Assessment & Plan (05/28/2022 4:08 PM INDUSTRIAL ROOF PLUMBER): Continues tight control of BP, statin and [...] often do you attend chur ch or baptism services? 1 to 4 times per year 08/20/2022 Do you belong to any clubs o r organizations such as jew groups, unions, fraternal or athletic groups, or [...] staff should administer the PHQ-9) 0 06/08/2024 [facility] - Occupational [...] on file Legal Sex Female 6:13 AM INDUSTRIAL ROOF PLUMBER Gender Identity Not on file Sexual Orientation Straight 06/08/2024 11 :24 AM INDUSTRIAL ROOF PLUMBER Last Filed Vital Signs Vital Sign Reading Time Taken Comments Blood Pressure 151/69 10/26/2024 9:36 AM CDT Pulse 78 10/26/2024 9:36 AM CDT Temperature 36.2 C (97.2 F) 05/01/2024 7:45 AM INDUSTRIAL ROOF PLUMBER Respiratory Rate 20 06/08/2024 11:34 AM INDUSTRIAL ROOF PLUMBER Oxygen Saturation 97% 05/01/2024 7:45 AM INDUSTRIAL ROOF PLUMBER Inhaled Oxygen Concentration - - Weight 77.1 kg (170 lb) 12/21/2024 8:30 AM CDT Height 152.4 cm (5') 12/21/2024 8:30 AM CDT Body Mass Index 33.2 12/21/2024 8:30 AM CDT Plan of Treatment Not on file Medical Devices Implanted Type Area Vehicle Trimmer Device Identifier Shelf Expiration Date Model / Serial / Lot [employer] Dvr [id number] Crosslock Maple Mount Screw Hole Fix Angle Radius Left 1318-21-050 - [id number] Implanted:Qty: 1 on 11/26/2022 by Chang Ward MD at [facility] Left: Wrist [employer] 1318-21-050 / / [employer] Dvr 2.7mm 18mm 3 Lead Thread Lock Taper Head Radius Distal Volar [id number] - [id number] Implanted:Qty: 1 on 11/26/2022 by Chang Ward MD at [facility] Left: Wrist [employer] [id number] / / [employer] Dvr 2.7mm 20mm Lock Spine Screw Bone Nonsterile 131120 - [id number] Implanted:Qty: 2 on 11/26/2022 by Chang Ward MD at [facility] Left: Wrist [employer] [id number] / / [employer] 2.7mm 13mm Nonlock Low Profile Radius Distal Screw Bone [id number] - [id number] Implanted:Qty: 1 on 11/26/2022 by Chang Ward MD at [facility] Left: Wrist [employer] [id number] / / [employer] Dvr 2.7mm 14mm Lock Cortical Screw Bone Nonsterile Latex Free 1311 - [id number] Implanted:Qty: 2 on 11/26/2022 by Chang Ward MD at [facility] Left: Wrist [employer] [id number] / / [employer] Dvr 2.7mm 13mm Lock 3 Lead Thread Crosslock Taper Head Radius - [id number] Implanted:Qty: 1 on 11/26/2022 by Chang Ward MD at [facility] Left: Wrist [employer] [id number] / / Procedures Procedure Name Priority Date/Time Associated Diagnosis Comments XR KNEE RIGHT 3 VIEWS Schedule Routine, Read Routine (OP Routine) 12/21/2024 8:35 AM CDT Right knee pain, unspecified chronicity PA ARTHROCENTESIS ASPIR&/INJ MAJOR JT/BURSA W/O US Routine 10/26/2024 10:00 AM CDT Trochanteric bursitis, right hip XR HIP RIGHT 2 OR 3 VIEWS Schedule Routine, Read Routine (OP Routine) 10/26/2024 9:25 AM CDT Right hip pain POCT HEMOGLOBIN A1C Routine 06/08/2024 1 1:35 AM INDUSTRIAL ROOF PLUMBER Type 2 diabetes mellitus with hyperglycemia, with long-term current use of insulin (HCC) EGFR Routine 05/01/2024 4:27 AM INDUSTRIAL ROOF PLUMBER COLONOSCOPY REPORT Routine 04/04/2024 10 :21 AM [...] Read Routine (OP Routine) 04/16/2023 12:56 PM INDUSTRIAL ROOF PLUMBER Encounter for screening mammogram for malignant neoplasm [...] the femur or other signs of loosening. Sukhjinedr Galdamez MD IMG XR PROCEDURES Final Result * PA ARTHROCENTESIS ASPIR&/INJ MAJOR JT/BURSA W/O US (10/26/2024 [...] with radiographic evidence of chronic calcific bursitis us Sukhjinder Galdamez MD IMG XR PROCEDURES Final Result * (ABNORMAL) POCT hemoglobin A1c (06/08/2024 11:35 AM INDUSTRIAL ROOF PLUMBER) Hemoglobin A1C, POC 7.7 4.0 - 5.6 % Comment:None Capillary blood 06/08/2024 1 1:35 AM INDUSTRIAL ROOF PLUMBER us Raj Stoddard MD POINT OF CARE TEST ORDERABLES Fi nal Result * eGFR (05/01/2024 4:27 AM INDUSTRIAL ROOF PLUMBER) eGFR 78 >=60 mL/min/1. 73 m2 Comment: [...] last reviewed 2021. Blood 05/01/2024 4:27 AM INDUSTRIAL ROOF PLUMBER 05/01/2024 5:47 AM INDUSTRIAL ROOF PLUMBER us Bro Jameson MD LAB BLOOD ORDERABLES Final Resu lt YAMILEX JHA (DECATUR) [address] [facility] Department [place] [address] * Colonoscopy Report -[facility] (04/04/2024 10:21 AM CDT) [...] fracture and secondary osteoporosis. Patient takes vitamin-D. Vehicle Trimmer/Model: Mogi (S/N [id number]) CLINICAL INFORMATION: Current height: 62 inches Maximum [...] Rebecca Syed M.D. TW: TW Report ID: [id number] Reading Location: [id number] Procedure Note Rebecca Syed MD - 03/23/2024 EXAM DESCRIPTION: DEXA AXIAL SKELETON BONE DENSITY 1 OR MORE SITES REASON FOR STUDY: 74 y/o year old F with given history of: Post menopausal status. History prior fracture and secondary osteoporosis. Patient takes vitamin-D. Vehicle Trimmer/Model: Tapp[employer] Discovery SL (S/N [id number]) CLINICAL INFORMATION: Current height: 62 inches Maximum [...] Rebecca Syed M.D. TW: TW Report ID: [id number] Reading Location: [place] [address] Mer Vazquez NP IMG DXA PROCEDURES Final R esult * (ABNORMAL) Albumin Creatinine Ratio, Urine (02/14/2024 11:16 AM CDT) Albumin Ur 59.2 mg/L Comment: Interpretive Data No reference range established. Current interpretive data was last revised 2018. Testing performed by: [facility], [address] [place] [address]., [id number] Creatinine Ur 187.7 mg/dL YAMILEX JHA (KARIME) Comment: Interpretive Data No reference range established. Current interpretive data was last revised 2018. Testing performed by: [facility], [address] [place] [address]., [id number] Albumin Creatinine Ratio, Ur 32(H) 1 - 29 mg/g YAMILEX JHA (KARIME) Comment:Testing performed by : [facility], [address] [place] [address]., [id number] Urine 02/14/2024 11:1 6 AM CDT 02/14/2024 6:30 PM CDT us Mer Vazquez NP LAB URINE ORDERABLES Final Result YAMILEX JHA (KARIME) [address] [facility] Department [place] [address] * (ABNORMAL) Lipid panel (02/14/2024 11:16 AM [...] last revised on 2018. Testing performed by: [facility], [address] [place] [address]., [id number] Triglycerides 175(H) <=149 mg/dL YAMILEX JHA (KARIME) [...] last revised on 2018. Testing performed by: [facility], [address] [place] [address]., [id number] HDL 34(L) >=40 mg/dL YAMILEX JHA (KARIME) [...] last revised on 2018. Testing performed by: [facility], [address] [place] [address]., [id number] LDL, calculated 74 <=129 mg/dL YAMILEX JHA [...] last revised on 2024. Testing performed by: [facility], [address] [place] [address]., [id number] Non-HDL Cholesterol 104 mg/dL YAMILEX JHA (KARIME) [...] last revised on 2018. Testing performed by: [facility], [address] [place] [address]., [id number] Chol/HDL ratio 4 REJI Page ABHIJEET (KARIME) Comment:Testing performed by : [facility], [address] [place] [address]., [id number] Blood 02/14/2024 11:1 6 AM CDT 02/14/2024 6:30 PM CDT us Mer Vazquez RESIDENTIAL SALES REPRESENTATIVE LAB BLOOD ORDERABLES Final Result YAMILEX ABHIJEET (KARIME) 1 [facility] Department [place] [address] * DIABETES EYE EXAM (10/19/2023) SCRIBED DIABETIC DILATED EYE EXAM Normal Historical Provider HEALTH MAINTENANCE Final Result * Screening Mammogram Bilateral W Philipp (04/16/2023 12:56 PM INDUSTRIAL ROOF PLUMBER) Anatomical Region Laterality Modality Breast Bilateral Mammography 04/28/2023 2:18 PM INDUSTRIAL ROOF PLUMBER Impressions 04/28/2023 2:18 PM INDUSTRIAL ROOF PLUMBER There is no mammographic evidence of malignancy. A 1 year screening mammogram is recommended. BI-RADS: 1 - Negative. The patient has been or will be contacted. The patient will be entered into a reminder system with a target due date of 1 year for her next mammogram. Electronically signed by: Jaida Rothman M.D. Narrative 04/28/2023 2:18 PM INDUSTRIAL ROOF PLUMBER EXAMINATION: SCREENING MAMMOGRAM BILATERAL W PHILIPP ORDERING [...] been no suspicious interval change. Mer Vazquez RESIDENTIAL SALES REPRESENTATIVE IMG MAMMO PROCEDURES Final Result from Last 3 Months or Most Recently Relevant to Health Maintenance Insurance COMMERCIAL GENERIC MEDICARE MEDICARE [place] [id number] H & W MCR SUPPLEMENT MEDICARE [place] [id number] H & W MCR SUPPLEMENT Advance Directives For more information, please contact: [phone] Documents on File Type Date Recorded Patient Canine Service Instructor Trainer Expl anation ADVANCE DIRECTIVE 06/19/2022 6:10 PM * Full Code (Latest Code Status on File) Date Activated Date Inactivated Comments 04/29/2024 9:41 PM 05/01/2024 3:08 PM Care Teams Hand Violin Maker Relationship Specialty Start Date End Date Horacio Ma MD [address] [place] [address] PCP - General Family Practice 10/02/24 Chang Ward MD Surgeon Orthopedic Surgery 11/26/22
[2025-01-01 13:07] VITALS: BP 186/148; PULSE 81; RESP 20; TEMP 36.4; O2SAT 99
--- NOTE | 2025-01-01 13:11 | ED.ABDPAIN ---
HPI - Abdominal Pain General Chief Complaint: Back Pain/Injury <Nevaeh Zhang APRN - Last Filed: 01/01/25 18:09> Stated Complaint: back pain x 1 month <Nevaeh Zhang APRN - Last Filed: 01/01/25 18:09> Time Seen by Provider: 01/01/25 13:10 <Nevaeh Zhang APRN - Last Filed: 01/01/25 18:09> Focused HPI: Patient is a 74-year-old female presents to the ER with left upper quadrant pain radiates to her left back. She reports she said the pain over the past month but is getting worse. Patient reports her doctor is aware of her pain and has ran tests but has been unable to diagnose why she is experiencing this pain. She denies any urinary symptoms, chest pain, shortness of breath, recent fevers. Patient endorses a history diabetes, CHF, hyperlipidemia. GENERAL: Well-appearing, well-nourished, and in no acute distress. HEAD: Normocephalic, atraumatic. CHEST: Clear to auscultation. ?No respiratory distress. HEART: Regular rate and rhythm.? NEURO: ?Alert and oriented x3. Patient screened in triage and initial orders placed.? ?Additional care and disposition to be based upon?diagnostic testing and treatment. <Nevaeh Zhang APRN - Last Filed: 01/01/25 18:09> History of Present Illness HPI narrative: I agree with evaluation <Blas Shelley MD - Last Filed: 01/01/25 19:27> Related Data Home Medications: Home Medications ?Medication ?Instructions ?Recorded ?Confirmed ?Last Taken ?Type aspirin 81 mg tablet,delayed 81 mg PO DAILY 10/13/19 09/29/24 09/05/24 History release (Adult Low Dose Aspirin) clopidogrel 75 mg tablet 75 mg PO DAILY 02/02/23 09/29/24 09/06/24 History lisinopril 40 mg tablet 40 mg PO DAILY 02/02/23 09/29/24 09/06/24 History alprazolam 0.25 mg tablet 0.25 mg PO TID PRN Anxiety 03/28/24 09/29/24 07/06/24 History biotin 1,000 mcg chewable tablet 1,000 mcg PO DAILY 03/28/24 09/29/24 09/06/24 History cholecalciferol (vitamin D3) 25 25 mcg PO DAILY 03/28/24 09/29/24 09/06/24 History mcg (1,000 unit) tablet (Vitamin D3) rosuvastatin 40 mg tablet 40 mg PO DAILY 03/28/24 09/29/24 09/06/24 History ascorbic acid (vitamin C) 100 mg 100 mg PO DAILY 07/07/24 09/29/24 09/06/24 History tablet (Vitamin C) turmeric 400 mg capsule 400 mg PO DAILY 07/07/24 09/29/24 09/05/24 History vitamin B complex 1 tablet PO DAILY 07/07/24 09/29/24 09/06/24 History buspirone 7.5 mg tablet 7.5 mg PO BID 09/29/24 09/29/24 Unknown History <Nevaeh Zhang APRN - Last Filed: 01/01/25 18:09> Allergies/Adverse Reactions: Allergies Allergy/AdvReac Type Severity Reaction Status Date / Time No Known Allergies Allergy Verified 01/01/25 13:10 <Nevaeh Zhang APRN - Last Filed: 01/01/25 18:09> Review of Systems Review of Systems: All systems reviewed & are unremarkable except as noted in HPI and below <Blas Shelley MD - Last Filed: 01/01/25 19:27> [facility] Past Medical History Medical History: Medical History Shingles Gout Overactive bladder Coronary artery disease Colitis Mixed hyperlipidemia Frequent urination Diabetes Arthritis IBS (irritable bowel syndrome) Fatigue Abdominal pain Diarrhea ACL tear Tear of MCL (medial collateral ligament) of knee <Nevaeh Zhang APRN - Last Filed: 01/01/25 18:09> Surgical History Surgical History: Surgical History History of tubal ligation History of total knee arthroplasty Right History of cholecystectomy H/O: hysterectomy Total hysterectomy, ovaries and uterus precancerous <Nevaeh Zhang APRN - Last Filed: 01/01/25 18:09> Family History Family History: Family History Mother Hypertension Cerebrovascular accident Family history of diabetes mellitus in first degree relative Family history of coronary artery disease Grandparent Family history of lung cancer Family history of coronary artery disease Diabetes mellitus Father Cancer Aplastic anemia Sibling Diabetes mellitus Heart disease Other Family history of arthritis Family history of gout Family history of malignant neoplasm <Nevaeh Zhang, ACTION FINISHER - Last Filed: 01/01/25 18:09> Social History Social History: Social History Smoking packs per day: 0 Smoking cigarettes per day: 0.0 Years smoked: 45 Smoking pack-years: 0.00 Smoking status: Former smoker Alcohol intake: never Alcohol use details: social Substance use: never Substance use type: does not use Do You Feel Safe in your Home?: Yes Lack of Transportation: No Lack of Food: Never True Current Housing: I Have Housing Concerned About Future Housing: No Difficulty Paying Gas/Electric Bills: No Difficulty Paying for Meds: No Currently Unemployed: No Education: High School Diploma/GED Difficulty w/ Childcare or Family Care: No Living arrangements: with family Occupation/Education: retired Gender identity (if verbalized by the patient): Female Spiritual care concerns: No <Nevaeh Zhang, ACTION FINISHER - Last Filed: 01/01/25 18:09> Exam Narrative: APPEARANCE: Well appearing, no pain, no distress, well-nourished. HEAD: normocephalic, atraumatic. EYES: PERRLA/EOMI, conjunctivae clear. NOSE: Normal no drainage EARS:TMS clear with good light reflex. THROAT: Pharynx clear, no exudate. NECK: Supple. No adenopathy, no masses. RESPIRATORY: Airway patent, respirations nonlabored. Clear to auscultation bilaterally, no rales, rhonchi, wheezing. CARDIOVASCULAR: Regular rate and rhythm without murmurs rubs or gallops. ABDOMINAL: Right CVA tenderness to palpation, mild suprapubic tenderness to palpation MUSCULOSKELETAL: Moves all extremities. Strength/ROM intact, No edema, No calf tenderness. NEURO: Alert. Cranial nerves II through XII intact. Good gait. Good coordination SKIN: Warm, dry. Normal Color <Blas Shelley MD - Last Filed: 01/01/25 19:27> Course Vital Signs Vital signs: Vital Signs Temperature 97.6 F 01/01/25 13:07 Pulse Rate 81 01/01/25 13:07 Respiratory Rate 20 01/01/25 13:07 Blood Pressure 186/148 H 01/01/25 13:07 Pulse Oximetry 99 01/01/25 13:07 Oxygen Delivery Room Air 01/01/25 13:07 Temperature 97.6 F 01/01/25 13:07 Pulse Rate 79 01/01/25 18:07 Respiratory Rate 18 01/01/25 18:07 Blood Pressure 176/84 H 01/01/25 18:07 Pulse Oximetry 98 01/01/25 18:07 Oxygen Delivery Room Air 01/01/25 13:07 <Nevaeh Zhang, ACTION FINISHER - Last Filed: 01/01/25 18:09> Vital Signs Temperature 97.6 F 01/01/25 13:07 Pulse Rate 81 01/01/25 13:07 Respiratory Rate 20 01/01/25 13:07 Blood Pressure 186/148 H 01/01/25 13:07 Pulse Oximetry 99 01/01/25 13:07 Oxygen Delivery Room Air 01/01/25 13:07 Temperature 97.6 F 01/01/25 13:07 Pulse Rate 79 01/01/25 18:07 Respiratory Rate 18 01/01/25 18:07 Blood Pressure 176/84 H 01/01/25 18:07 Pulse Oximetry 98 01/01/25 18:07 Oxygen Delivery Room Air 01/01/25 13:07 <Blas Shelley MD - Last Filed: 01/01/25 19:27> MDM - Abdominal Pain MDM Narrative Medical decision making narrative: 74-year-old female presents emergency department for evaluation for chronic abdominal pain. Patient is currently afebrile with no leukocytosis hemoglobin of 13.9. No acute abnormalities on her CMP other than a glucose of 280 urine was positive for trace leukocyte esterase and elevated white blood cells but no bacteria. Urine culture was ordered. Patient was provided Bentyl for symptom control encouraged to have close follow-up with GI. <Blas Shelley MD - Last Filed: 01/01/25 19:27> Differential Diagnosis Differential diagnosis: Likely abdominal pain, calculus of kidney, constipation, diverticulitis, gastroenteritis, pancreatitis and small bowel obstruction <Blas Shelley MD - Last Filed: 01/01/25 19:27> Lab Data Attestation: I reviewed the patient's lab results. <Blas Shelley MD - Last Filed: 01/01/25 19:27> Result diagrams: 01/01/25 13:30 01/01/25 13:30 <Nevaeh Zhang APRN - Last Filed: 01/01/25 18:09> Labs: Lab Results 01/01/25 01/01/25 Range/Units 13:30 13:36 WBC 6.0 (4.5-10.0) K/mm3 RBC 4.56 (4.2-5.4) M/mm3 Hgb 13.9 (12.0-15.0) g/dL Hct 42.8 (37.0-47.0) % MCV 93.9 (80-100) fl MCH 30.5 (26-34) pg MCHC 32.5 (32-36) g/dl RDW 13.6 (11.5-14.5) % Plt Count 169 (150-375) k/mm3 MPV 10.8 H (7.4-10.4) fl Immature Gran % (Auto) 0.3 (0-0.5) % Neut % (Auto) 64.5 (45.5-73.1) % Lymph % (Auto) 27.0 (18.3-44.2) % [place] % (Auto) 6.2 (2.6-8.5) % Eos % (Auto) 1.2 (0-4.4) % Baso % (Auto) 0.8 (0.2-1.2) % Lymph # (Auto) 1.62 (0.9-3.2) K/mm3 [place] # (Auto) 0.4 (0.1-0.6) K/mm3 Eos # (Auto) 0.1 (0-0.3) K/mm3 Baso # (Auto) 0.1 (0.0-0.1) K/mm3 Abs Immat Gran (auto) 0.02 (0.00-0.031) K/mm3 Absolute Neuts (auto) 3.9 (1.3-6.7) K/mm3 Absolute Nucleated RBC 0.000 (0.0-0.012) K/mm3 Nucleated RBC % 0.0 (0.0-0.2) % Sodium 138 (137-145) mmol/L Potassium 4.1 (3.4-5.0) mmol/L Chloride 103 (98-107) mmol/L Carbon Dioxide 28 (22-30) mmol/L Anion Gap 7 (4-12) mmol/L BUN 16 (7-17) mg/dL Creatinine 0.72 (0.7-1.0) mg/dL Estim Creat Clear Calc 57 ml/min Estimated GFR > 60 (59 - ) Glucose 280 H (65-110) mg/dL Calcium 9.2 (8.4-10.2) mg/dL Total Bilirubin 0.7 (0.2-1.3) mg/dL AST 25 (14-36) U/L ALT 23 (6-35) U/L Alkaline Phosphatase 67 (38-126) U/L Total Protein 6.5 (6.3-8.2) g/dL Albumin 3.9 (3.5-5.1) g/dL Lipase 124 (23-300) U/L Urine Color Dark yellow (Yellow) Urine Appearance Clear (Clear) Urine pH 7.0 (5.0-9.0) Ur Specific [place] 1.026 (1.001-1.035) Urine Protein Trace (Negative) mg/dL Urine Glucose (UA) 2+ H (Negative) mg/dL Urine Ketones Negative (Negative) mg/dL Ur Blood (Man) Negative (Negative) Urine Nitrate Negative (Negative) Urine Bilirubin Negative (Negative) Urine Urobilinogen 1.0 (<2.0) mg/dL Add Ur Microanalysis Reviewed Leukocyte Esterase Rfl Trace H (Negative) DELVIN/UL Urine RBC 0-2 (0-2) /hpf Urine WBC 11-20 H (0-3) /hpf Ur Squamous Epith Cells Occasional (Few) /hpf Urine Bacteria None seen /hpf Urine Casts 0-2 <Nevaeh Zhang, ACTION FINISHER - Last Filed: 01/01/25 18:09> Lab Results 01/01/25 01/01/25 Range/Units 13:30 13:36 WBC 6.0 (4.5-10.0) K/mm3 RBC 4.56 (4.2-5.4) M/mm3 Hgb 13.9 (12.0-15.0) g/dL Hct 42.8 (37.0-47.0) % MCV 93.9 (80-100) fl MCH 30.5 (26-34) pg MCHC 32.5 (32-36) g/dl RDW 13.6 (11.5-14.5) % Plt Count 169 (150-375) k/mm3 MPV 10.8 H (7.4-10.4) fl Immature Gran % (Auto) 0.3 (0-0.5) % Neut % (Auto) 64.5 (45.5-73.1) % Lymph % (Auto) 27.0 (18.3-44.2) % [place] % (Auto) 6.2 (2.6-8.5) % Eos % (Auto) 1.2 (0-4.4) % Baso % (Auto) 0.8 (0.2-1.2) % Lymph # (Auto) 1.62 (0.9-3.2) K/mm3 [place] # (Auto) 0.4 (0.1-0.6) K/mm3 Eos # (Auto) 0.1 (0-0.3) K/mm3 Baso # (Auto) 0.1 (0.0-0.1) K/mm3 Abs Immat Gran (auto) 0.02 (0.00-0.031) K/mm3 Absolute Neuts (auto) 3.9 (1.3-6.7) K/mm3 Absolute Nucleated RBC 0.000 (0.0-0.012) K/mm3 Nucleated RBC % 0.0 (0.0-0.2) % Sodium 138 (137-145) mmol/L Potassium 4.1 (3.4-5.0) mmol/L Chloride 103 (98-107) mmol/L Carbon Dioxide 28 (22-30) mmol/L Anion Gap 7 (4-12) mmol/L BUN 16 (7-17) mg/dL Creatinine 0.72 (0.7-1.0) mg/dL Estim Creat Clear Calc 57 ml/min Estimated GFR > 60 (59 - ) Glucose 280 H (65-110) mg/dL Calcium 9.2 (8.4-10.2) mg/dL Total Bilirubin 0.7 (0.2-1.3) mg/dL AST 25 (14-36) U/L ALT 23 (6-35) U/L Alkaline Phosphatase 67 (38-126) U/L Total Protein 6.5 (6.3-8.2) g/dL Albumin 3.9 (3.5-5.1) g/dL Lipase 124 (23-300) U/L Urine Color Dark yellow (Yellow) Urine Appearance Clear (Clear) Urine pH 7.0 (5.0-9.0) Ur Specific [place] 1.026 (1.001-1.035) Urine Protein Trace (Negative) mg/dL Urine Glucose (UA) 2+ H (Negative) mg/dL Urine Ketones Negative (Negative) mg/dL Ur Blood (Man) Negative (Negative) Urine Nitrate Negative (Negative) Urine Bilirubin Negative (Negative) Urine Urobilinogen 1.0 (<2.0) mg/dL Add Ur Microanalysis Reviewed Leukocyte Esterase Rfl Trace H (Negative) DELVIN/UL Urine RBC 0-2 (0-2) /hpf Urine WBC 11-20 H (0-3) /hpf Ur Squamous Epith Cells Occasional (Few) /hpf Urine Bacteria None seen /hpf Urine Casts 0-2 <Blas Shelley MD - Last Filed: 01/01/25 19:27> Imaging Data Radiologist's impression: ITS Impressions Abdomen/Pelvis CT 01/01/25 17:01 IMPRESSION: 1. No acute abdominal abnormality. <Nevaeh Zhang APRN - Last Filed: 01/01/25 18:09> ITS Impressions Abdomen/Pelvis CT 01/01/25 17:01 IMPRESSION: 1. No acute abdominal abnormality. <Blas Shelley MD - Last Filed: 01/01/25 19:27> Discharge Plan Discharge Clinical Impression: Abdominal pain <Nevaeh Zhang APRN - Last Filed: 01/01/25 18:09> Patient Disposition: Home <Nevaeh Zhang APRN - Last Filed: 01/01/25 18:09> Condition: Stable <Nevaeh Zhang APRN - Last Filed: 01/01/25 18:09> Instructions: Antibiotic Form <Nevaeh Zhang APRN - Last Filed: 01/01/25 18:09> Additional Instructions: Urine culture was ordered, you may receive a call in the next 24-48 hours to start antibiotics for a possible urinary tract infection. Bentyl for abdominal cramping. Have close follow-up with GI. Have close follow-up with your primary care physician. <Nevaeh Zhang, ACTION FINISHER - Last Filed: 01/01/25 18:09> Patient Language: Botswanan <Nevaeh Zhang, ACTION FINISHER - Last Filed: 01/01/25 18:09> Prescriptions: New dicyclomine 10 mg capsule 10 mg PO BID PRN (Reason: abdominal pain) Qty: 14 0RF No Action cephalexin 500 mg capsule 500 mg PO BID 7 Days Qty: 14 0RF phenazopyridine [Pyridium] 200 mg tablet 200 mg PO TID 2 Days Qty: 6 0RF aspirin [Adult Low Dose Aspirin] 81 mg tablet,delayed release (DR/EC) 81 mg PO DAILY dicyclomine 10 mg capsule 10 mg PO TID PRN (Reason: abdominal cramping) Qty: 30 0RF tramadol 50 mg tablet 50 mg PO Q8H PRN (Reason: pain) Qty: 20 0RF methocarbamol 500 mg tablet 500 mg PO TID Qty: 30 0RF Vitamin C 100 mg tablet 100 mg PO DAILY vitamin B complex Tablet 1 tablet PO DAILY turmeric 400 mg capsule 400 mg PO DAILY lisinopril 40 mg tablet 40 mg PO DAILY clopidogrel 75 mg tablet 75 mg PO DAILY Rx Instructions: TAKE 1 TABLET EVERY DAY buspirone 7.5 mg tablet 7.5 mg PO BID Rx Instructions: TAKE 1 TABLET BID DAILY alprazolam 0.25 mg Tablet 0.25 mg PO TID PRN (Reason: Anxiety) rosuvastatin 40 mg tablet 40 mg PO DAILY cholecalciferol (vitamin D3) [Vitamin D3] 25 mcg (1,000 unit) Tablet 25 mcg PO DAILY biotin 1,000 mcg Tablet,Chewable 1,000 mcg PO DAILY Gemtesa 75 mg tablet 75 mg PO DAILY Qty: 90 1RF insulin glargine [Lantus Solostar U-100 Insulin] 100 unit/mL (3 mL) insulin pen 30 unit subcut BID Qty: 15 3RF (DME) pen needle, diabetic [Comfort EZ Pen [place]] 32 gauge x 5/16 needle See Rx Instructions .Route Qty: 100 3RF Rx Instructions: Use with insulin Pen twice a day As directed cetirizine 10 mg tablet 10 mg PO DAILY Qty: 90 1RF <Nevaeh Zhang APRN - Last Filed: 01/01/25 18:09> Follow-up/Referrals: Horacio Ma MD [Primary Care Provider] - Ari Crabtree MD [Physician] - <Nevaeh Zhang APRN - Last Filed: 01/01/25 18:09>
[2025-01-01 13:56] LABS: Hematocrit 42.8 % (37.0-47.0); Hemoglobin 13.9 g/dL (12.0-15.0); Immature Granulocyte Percent A 0.3 % (0-0.5); Lymphocytes Absolute Auto 1.62 K/mm3 (0.9-3.2); Mean Corpuscular HGB Conc 32.5 g/dl (32-36); Mean Corpuscular Hemoglobin 30.5 pg (26-34); Mean Corpuscular Volume 93.9 fl (80-100); Nucleated Red Blood Cells Absolute Auto 0.000 K/mm3 (0.0-0.012); Nucleated Red Blood Cells Perc 0.0 % (0.0-0.2); Platelet Count Result 169 k/mm3 (150-375); Red Blood Count 4.56 M/mm3 (4.2-5.4); White Blood Count 6.0 K/mm3 (4.5-10.0)
[2025-01-01 14:15] LABS: Alanine Aminotransferase 23 U/L (6-35); Albumin Level 3.9 g/dL (3.5-5.1); Alkaline Phosphatase 67 U/L (38-126); Anion Gap 7 mmol/L (4-12); Aspartate Amino Transferase 25 U/L (14-36); Bilirubin,Total 0.7 mg/dL (0.2-1.3); Blood Urea Nitrogen 16 mg/dL (7-17); Calcium 9.2 mg/dL (8.4-10.2); Carbon Dioxide 28 mmol/L (22-30); Chloride 103 mmol/L (98-107); Estimated CRCL calculation 57 ml/min; Estimated Glomerular Filt Rate > 60; Glucose 280 mg/dL (65-110); Lipase 124 U/L (23-300); Potassium 4.1 mmol/L (3.4-5.0); Sodium 138 mmol/L (137-145); Total Protein 6.5 g/dL (6.3-8.2)
[2025-01-01 14:19] LABS: Add Urine Microscopic? YES; Appearance Urine Clear (Clear); Glucose Urine UA 2+ mg/dL (Negative); Leukocyte Esterase Ur Trace LEU/UL (Negative); Need Manual Microscopic Reviewed; Nitrate Urine Negative (Negative); Non Pathogenic Casts 0-2; Specific Grav Ur 1.026 (1.001-1.035)
--- OUTSIDE RECORDS SUMMARY | 2025-01-01 14:26 | XMS_ITS | Clinical Summary ---
Author Organization [facility] Address [address] [place] [address] Care Team Providers Care Build Engineer Name Role Phone Júnior Puente MD Primary Care Provider [phone] Source Comments [facility],non-owned Affiliates and Associated Physician Practices is amultiple site organization consisting of ambulatory clinics and hospital sitesin [place], [place], [place] and [place]. This disclosure is being madepursuant to the Care Everywhere program and may not contain all information available regarding this patient. Last updated 18.[facility] Allergies No known active allergies Medications * [...] on file Legal Sex Female 5:23 PM PENSION EXAMINER Gender Identity Not on file Sexual Orientation Not on file Last Filed Vital Signs Vital Sign Reading Time Taken Comments Blood Pressure 118/58 07/23/2020 11:30 AM PENSION EXAMINER Pulse 74 07/23/2020 11:30 AM PENSION EXAMINER Temperature 36.5 C (97.7 F) 07/23/2020 10:19 AM PENSION EXAMINER Respiratory Rate 6 07/23/2020 11:30 AM PENSION EXAMINER Oxygen Saturation 94% 07/23/2020 11:30 AM PENSION EXAMINER Inhaled Oxygen Concentration - - Weight 70.8 kg (156 lb) 07/23/2020 8:34 AM PENSION EXAMINER Height 157.5 cm (5' 2) 07/23/2020 8:34 AM PENSION EXAMINER Body Mass Index 28.53 07/23/2020 8:34 AM PENSION EXAMINER Plan of Treatment Health Maintenance Due Date [...] PANEL (CALCIUM TOTAL) STAT 07/23/2020 8:14 AM PENSION EXAMINER Preop examination HEMOGLOBIN A1C Routine 01/12/2013 2:30 AM CDT from Last 3 Months or Most Recently Relevant to Health Maintenance Results * (ABNORMAL) BASIC METABOLIC PANEL (CALCIUM TOTAL) (07/23/2020 8:14 AM PENSION EXAMINER) BUN 13 7 - 26 mg/dL 07/23/2020 8:48 AM [facility] Creatinine 0.7 0.6 - 1.2 mg/dL 07/23/2020 8:48 AM [facility] Sodium 141 136 - 145 mmol/L 07/23/2020 8:48 AM [facility] Potassium 3.3(L) 3.5 - 4.5 mmol/L 07/23/2020 8:48 AM [facility] Chloride 106 98 - 107 mmol/L 07/23/2020 8:48 AM [facility] CO2 24 22 - 29 mmol/L 07/23/2020 8:48 AM [facility] Glucose 167(H) 70 - 115 mg/dL 07/23/2020 8:48 AM [facility] Calcium 8.5 8.4 - 10.2 mg/dL 07/23/2020 8:48 AM [facility] Anion Gap 14 8 - 18 07/23/2020 8:48 AM [facility] BUN/Creatinine Ratio 19 7 - 23 07/23/2020 8:48 AM [facility] Osmolality Calculated 296 270 - 300 mOsm/kg 07/23/2020 8:48 AM [facility] eGFR >60 >60 mL/min/1.7 3 m2 07/23/2020 8:48 AM PENSION EXAMINER [facility] Blood BLOOD SPECIMEN / Unknown Venipuncture / Unknown 07/23/2020 8:14 AM PENSION EXAMINER 07/23/2020 8:18 AM PENSION EXAMINER us Rod Olivas MD LAB - CHEMISTRY ORDERABLES Final Result [facility] [address] [place] [address], [facility] [phone] * (ABNORMAL) HEMOGLOBIN A1C (01/12/2013 2:30 AM CDT) Hemoglobin A1c 7.1(H) 4.4 - 6.3 % [facility] Estimated Average Glucose 157 mg/dL [facility] Blood specimen (specimen) 01/12/2013 2:30 AM CDT 01/12/2013 2:55 AM CDT Arturo Ernst MD LAB - CHEMISTRY ORDERABLES F inal Result [facility] [address] [place], [place] [address] [phone] from Last 3 Months or Most Recently Relevant to Health Maintenance Insurance MEDICARE MEDICARE COMMERCIAL GENERIC COMMERCIAL GENERIC SELF PAY NO INSURANCE Member Subscriber Plan / Payer (Ef fective for All Dates) Name:Mildred Grace Member ID:Not on file Relation to Subscriber:Not on file Name:MILDRED GRACE Subscriber ID:Not on file (Home) Address: [address] [place] [address] Payer ID:Not on file Group ID:Not on file Type:Self Pay Address: [place], [place] [address] [place] [address] MEDICARE Member Subscriber Plan / Payer (Ef fective for All Dates) Name:Mildred Grace Member ID:[id number] Relation to Subscriber:Self Name:MILDRED GRACE Subscriber ID:[id number] Payer ID:Not on file Group ID:Not on file Type:Medicare Address: [address] [place] [address] MEDICARE Member Subscriber Plan / Payer (Ef fective for All Dates) Name:Mildred Grace Member ID:[id number] Relation to Subscriber:Self Name:MILDRED GRACE Subscriber ID:[id number] Payer ID:Not on file Group ID:Not on file Type:Medicare Address: [place] [id number] [place] [address] MEDICARE Member Subscriber Plan / Payer (Ef fective for All Dates) Name:Mildred Garce Member ID:[id number] Relation to Subscriber:Self Name:Mildred Grace Subscriber ID:[id number] Payer ID:Not on file Group ID:Not on file Type:Medicare Address: [place] [id number] Care Teams Build Engineer Relationship Specialty Start Date End Date Júnior Puente MD [address] [place] [address] PCP - General 03/02/14
--- OUTSIDE RECORDS SUMMARY | 2025-01-01 14:26 | XMS_ITS | Clinical Summary ---
Author Organization [facility] [place] [address] Address [address] [place] [address] Care Team Providers Care Fiber Heel Piece Shaper Name Role Phone Chang Ward MD Unavailable Horacio Ma MD Primary Care Provider [phone] Allergies Active Allergy Reactions Criticality Noted Date [...] 04/12/2024 Assessment & Plan (04/12/2024 11:22 AM MANAGER ASSISTED LIVING): Started on Fosamax. Continue taking vitamin D. [...] surgery. Updated referral and reached out to [facility] orthopedic surgery Dr. Ward, plan for [...] Rosuvastatin 40mg. Last lipid panel: 02/19/23 LDL=73, HJ=848. No changes at this time. Assessment & Plan (08/12/2023 11:01 AM MANAGER ASSISTED LIVING): Chronic, stable LDL cholesterol goal Continue rosuvastatin Assessment & Plan (05/04/2023 10:39 AM MANAGER ASSISTED LIVING): Chronic problem, currently taking Rosuvastatin 40mg. Last lipid panel: 02/19/23 LDL=73, WX=325. No changes at this time. Assessment & Plan (01/19/2023 10:03 AM CDT): Chronic, well controlled Continue Rosuvastatin Assessment & Plan (08/18/2022 10:33 AM CDT): Chronic problem, currently taking Rosuvastatin 40mg. Last lipid panel: 01/30/22 LDL=62, UU=235. No changes at this time. Hypertension associated with stage 2 chronic kidney disease due to type 2 diabetes mellitus 08/17/2022 Assessment & Plan (04/12/2024 11:42 AM MANAGER ASSISTED LIVING): Normotensive. Continue taking lisinopril. Red flags reviewed. Assessment & Plan (12/16/2023 10:21 AM CDT): Chronic problem, BP controlled on current lisinopril 40mg daily. No changes at this time. Assessment & Plan (09/13/2023 11:43 AM CDT): Normotensive. Continue lisinopril, clonidine. Will continue monitor. Assessment & Plan (05/04/2023 10:39 AM MANAGER ASSISTED LIVING): Chronic problem, BP controlled on current lisinopril 40mg daily. No changes at this time. Assessment & Plan (08/18/2022 10:33 AM CDT): Chronic problem, BP controlled on current quinapril 40mg daily. No changes at this time. Mild cognitive impairment 05/28/2022 Assessment & Plan (05/28/2022 4:07 PM MANAGER ASSISTED LIVING): Patient started on donepezil around 01/2022 and [...] barefoot. Assessment & Plan (08/12/2023 11:00 AM MANAGER ASSISTED LIVING): Foot care discussed Continue gabapentin Assessment & Plan (05/04/2023 11:00 AM MANAGER ASSISTED LIVING): Chronic problem. Currently taking Gabapentin 300mg bid. [...] aspirin starting Wednesday 11/22. Coronary arteriosclerosis in pam[place] artery 02/06 Overview (09/11/2016): CAD in [place] artery Impairment of balance 02/07/2016 Overview (09/11/2016): Balance disorder Episodic lightheadedness 03/08/2014 Fall at home, initial encounter 03/08/2014 Heart disease 10/21/2013 Overview (12/25/2021): HYPERTENSION NOS Occlusion and stenosis of unspecified carotid ar shannon 03/02/2013 Overview (05/04/2021): Carotid disease, bilateral Diabetes mellitus 01/13/2013 Overview (12/25/2021): DMII WO CMP UNCNTRLD Overview: DMII WO CMP UNCNTRLD Overview: DMII WO [facility] UNCNTRLD Assessment & Plan (06/08/2024 12:04 PM MANAGER ASSISTED LIVING): Chronic, uncontrolled with a higher A1c Importance [...] placed. Assessment & Plan (08/12/2023 11:00 AM MANAGER ASSISTED LIVING): Chronic, stable but not at goal Importance of diet and exercise discussed Continue current regimen with Levemir, Humalog, Ozempic and Farxiga Patient interested in an insulin pump Will get C-peptide, fasting glucose and galen antibody If appropriate, will start process for insulin pump Assessment & Plan (05/04/2023 10:58 AM MANAGER ASSISTED LIVING): Chronic problem. A1c improved from 8.0% 01/2023 [...] hours). Assessment & Plan (07/09/2022 4:06 PM MANAGER ASSISTED LIVING): Hba1c was Lab Results Component Value Date [...] Send me a message every week, via [employer], to let me know how you are [...] stroke Assessment & Plan (05/28/2022 4:08 PM MANAGER ASSISTED LIVING): Continues tight control of BP, statin and [...] Description 12/21/2024 8:30 AM CDT Office Visit [facility] [address] [place] [address] [address] [address] Sukhjinder Galdamez MD Right knee pain, unspecified chronicity (Primary Dx); Pain due to total right knee replacement, initial encounter 12/21/2024 7:41 AM CDT - 12/21/2024 11:59 PM CDT Hospital Encounter [facility] Medical [facility] and Sports Medicine [address] [place] [address] [address] [place] [address] Discharge Disposition: Discharge to home or self care 12/14/2024 Telephone [facility] of [address] [address] Lauren Manzano LPN Forms/questionnaires (Harir) 12/06/2024 Telephone [facility] [address] [address] Raj Stoddard MD 10/26/2024 10:00 AM CDT Office Visit [facility] and Sports Medicine [address] [place] [address] [address] [place] [address] Sukhjinder Galdamez MD Trochanteric bursitis, right hip (Primary Dx); Right hip pain 10/26/2024 7:42 AM CDT - 10/26/2024 11:59 PM CDT Hospital Encounter [facility] Medicine [address] [place] [address] [address] [place] [address] Discharge Disposition: Discharge to home or self care 10/12/2024 Telephone [facility] [id number] [place] [address] [address], [place] [address] Raj Stoddard MD [employer] OV request from Last 3 Months Immunizations [...] aplastic anemia at age 64, was a Nondenominational Heart attack Mother 2 Mother Myocardial infa rction; mother had massive AK at 72 Diabetes type II Other Family [...] How often do you attend chur or roman catholic services? 1 to 4 times per year 08/20/2022 Do you belong to any clubs o r organizations such as orthodox groups, unions, fraternal or athletic groups, or [...] staff should administer the PHQ-9) 0 06/08/2024 [facility] - Occupational Stress Questionnaire Answer Date [...] in a residential (including now)? No 08/20/2022 PHQ-9 Answer Date [...] on file Legal Sex Female 6:13 AM MANAGER [facility]ISTED [facility]IV[facility] Gender Identity Not on file Sexual Orientation Straight 06/08/2024 11 :24 AM MANAGER [facility]ISTED [facility]IV[facility] Obstetrics History Para Term AB IAB SAB [...] 36.2 C (97.2 F) 05/01/2024 7:45 AM MANAGER [facility]ISTED LIVING Respiratory Rate 20 06/08/2024 11:34 AM MANAGER ASSISTED [facility]IVING Oxygen Saturation 97% 05/01/2024 7:45 AM MANAGER ASSISTED LIVING Inhaled Oxygen Concentration - - Weight 77.1 [...] 04/04/2024, 02/10/2023 Medical Devices Implanted Type Area Supervisor Of Operations Device Identifier Shelf Expiration Date Model / Serial / Lot [employer] Dvr [id number] Crosslock Trufant Screw Hole Fix Angle Radius Left 1318-21050 - [id number] Implanted:Qty: 1 on 11/26/2022 by Chang Ward MD at [facility] Left: Wrist [employer] 1318-21050 / / [employer] Dvr 2.7mm 18mm 3 Lead Thread Lock Taper Head Radius Distal Volar 1312-27-118 - [id number] Implanted:Qty: 1 on 11/26/2022 by Chang Ward MD at [facility] Left: Wrist [employer] 1312-27-118 / / [employer] Dvr 2.7mm 20mm Lock Spine Screw Bone Nonsterile 1312-27-120 - [id number] Implanted:Qty: 2 on 11/26/2022 by Chang Ward MD at [facility] Left: Wrist [employer] 1312-27-120 / / [employer] 2.7mm 13mm Nonlock Low Profile Radius Distal Screw Bone [id number] - [id number] Implanted:Qty: 1 on 11/26/2022 by Chang Ward MD at [facility] Left: Wrist [employer] [id number] / / [employer] Dvr 2.7mm 14mm Lock Cortical Screw Bone Nonsterile Latex Free 1312-27-114 - [id number] Implanted:Qty: 2 on 11/26/2022 by Chang Ward MD at [facility] Left: Wrist [employer] 1312-27-114 / / [employer] Dvr 2.7mm 13mm Lock 3 Lead Thread Crosslock Taper Head Radius 1312-27- - [id number] Implanted:Qty: 1 on 11/26/2022 by Chang Ward MD at [facility] Left: Wrist [employer] 1312-27-113 / / Procedures Procedure Name Priority Date/Time Associated Diagnosis Comments XR KNEE RIGHT 3 VIEWS Schedule Routine, Read Routine (OP Routine) 12/21/2024 8:35 AM CDT Right knee pain, unspecified chronicity [place] ARTHROCENTESIS ASPIR&/INJ MAJOR JT/BURSA W/O US Routine 10/26/2024 10:00 AM CDT Trochanteric bursitis, right hip XR HIP RIGHT 2 OR 3 VIEWS Schedule Routine, Read Routine (OP Routine) 10/26/2024 9:25 AM CDT Right hip pain POCT HEMOGLOBIN A1C Routine 06/08/2024 1 1:35 AM [facility]IV[facility] Type 2 diabetes mellitus with hyperglycemia, with long-term current use of insulin (HCC) EGFR Routine 05/01/2024 4:27 AM [facility]NA[facility]ISTED LIVING COLONOSCOPY REPORT Routine 04/04/2024 10 :21 AM [...] Read Routine (OP Routine) 04/16/2023 12:56 PM MANAGER ASSISTED LIVING Encounter for screening mammogram for malignant neoplasm [...] MD IMG XR PROCEDURES Final Result * [place] ARTHROCENTESIS ASPIR&/INJ MAJOR JT/BURSA W/O US (10/26/2024 [...] (ABNORMAL) POCT hemoglobin A1c (06/08/2024 11:35 AM MANAGER ASSISTED LIVING) Hemoglobin A1C, POC 7.7 4.0 - 5.6 % Comment:None Capillary blood 06/08/2024 1 1:35 AM MANAGER ASSISTED LIVING Result [facility] Raj Stoddard MD POINT OF CARE TEST ORDERABLES Fi nal Result * eGFR (05/01/2024 4:27 AM MANAGER ASSISTED LIVING) eGFR 78 >=60 mL/min/1. 73 m2 Comment: [...] last reviewed 2021. Blood 05/01/2024 4:27 AM MANAGER ASSISTED LIVING 05/01/2024 5:47 AM MANAGER ASSISTED LIVING Bro Jameson MD LAB BLOOD ORDERABLES Final Resu lt [facility]) [facility] [place] [address] * Colonoscopy Report -[facility] (04/04/2024 10:21 AM [...] fracture and secondary osteoporosis. Patient takes vitamin-D. Supervisor Of Operations/Model: [employer] (S/N [id number]) CLINICAL INFORMATION: Current height: 62 inches Maximum [...] Rebecca Syed M.D. TW: TW Report ID: [id number] Reading Location: [id number] Procedure Note Rebecca Syed MD - 03/23/2024 EXAM DESCRIPTION: DEXA AXIAL SKELETON BONE DENSITY 1 OR MORE SITES REASON FOR STUDY: 74 y/o year old F with given history of: Post menopausal status. History prior fracture and secondary osteoporosis. Patient takes vitamin-D. Supervisor Of Operations/Model: [employer] (S/N [id number]) CLINICAL INFORMATION: Current height: 62 inches Maximum [...] Rebecca Syed M.D. TW: TW Report ID: [id number] Reading Location: [id number] Mer Vazquez NP IMG DXA PROCEDURES Final R esult * (ABNORMAL) Albumin Creatinine Ratio, Urine (02/14/2024 11:16 AM CDT) Albumin Ur 59.2 mg/L Comment: Interpretive Data No reference range established. Current interpretive data was last revised 2018. Testing performed by: [facility], [address] [place] [address]., [id number] Creatinine Ur 187.7 mg/dL Y[facility] (KARIME) Comment: Interpretive Data No reference range established. Current interpretive data was last revised 2018. Testing performed by: [facility], [address] [place] [address]., [id number] Albumin Creatinine Ratio, Ur 32(H) 1 - 29 mg/g [facility] (KARIME) Comment:Testing performed by : [address] [address] Urine 02/14/2024 11:1 6 AM CDT 02/14/2024 6:30 PM CDT Mer Vazquez NP LAB URINE ORDERABLES Final Result [facility] (KARIME) 1 [facility] Department [place] [address] * (ABNORMAL) Lipid panel (02/14/2024 11:16 AM [...] last revised on 2018. Testing performed by: [facility], [address] [place] [address]., [address] Triglycerides 175(H) <=149 mg/dL [facility] (KARIME) [...] last revised on 2018. Testing performed by: [facility], [address] [place] [address]., [address] HDL 34(L) >=40 mg/dL [facility] (KARIME) [...] last revised on 2018. Testing performed by: [facility], [address] [place] [address]., [address] LDL, calculated 74 <=129 mg/dL [facility] [...] last revised on 2024. Testing performed by: [address] [address] Non-HDL Cholesterol 104 mg/dL [facility] (KARIME) [...] last revised on 2018. Testing performed by: [address] [address] Chol/HDL ratio 4 REJI [facility] (KARIME) Comment:Testing performed by : [address] [address] Blood 02/14/2024 11:1 6 AM CDT 02/14/2024 6:30 PM CDT us Mer Vazquez NP LAB BLOOD ORDERABLES Final Result [facility] (KARIME) 1 [facility] Department [place] [address] * DIABETES EYE EXAM (10/19/2023) SCRIBED DIABETIC DILATED EYE EXAM Normal Historical Provider HEALTH MAINTENANCE Final Result * Screening Mammogram Bilateral W Philipp (04/16/2023 12:56 PM MANAGER [facility]ISTED LIVING) Anatomical Region Laterality Modality Breast Bilateral Mammography 04/28/2023 2:18 PM MANAGER ASSISTED LIVING Impressions 04/28/2023 2:18 PM MANAGER ASSISTED LIVING There is no mammographic evidence of malignancy. A 1 year screening mammogram is recommended. BI-RADS: 1 - Negative. The patient has been or will be contacted. The patient will be entered into a reminder system with a target due date of 1 year for her next mammogram. Electronically signed by: Jaida Rothman M.D. Narrative 04/28/2023 2:18 PM MANAGER ASSISTED LIVING EXAMINATION: SCREENING MAMMOGRAM BILATERAL W PHILIPP ORDERING [...] been no suspicious interval change. Mer Vazquez PROGRAMS DIRECTOR IMG MAMMO PROCEDURES Final Result from Last 3 Months or Most Recently Relevant to Health Maintenance Insurance COMMERCIAL GENERIC MEDICARE MEDICARE LOCAL [address] SUPPLEMENT MEDICARE [place] [id number] [address] [facility] SUPPLEMENT Advance Directives For more information, please contact: [phone] Documents on File Type Date Recorded Patient Reservoir Engineering Advisor Expl anation ADVANCE DIRECTIVE 06/19/2022 6:10 PM * Full Code (Latest Code Status on File) Date Activated Date Inactivated Comments 04/29/2024 9:41 PM 05/01/2024 3:08 PM Care Teams Fiber Heel Piece Shaper Relationship Specialty Start Date End Date Horacio Ma MD [address] [place] [address] PCP - General Family Practice 10/02/24 Chang Ward MD Surgeon Orthopedic Surgery 11/26/22
--- OUTSIDE RECORDS SUMMARY | 2025-01-01 14:27 | XMS_ITS | Continuity of Care Document ---
Author Organization [facility] Address [address] [place] [address] Phone Care Team Providers Care Blacksmith Assistant Name Role Phone Dumont OD, Maicol Unavailable Unavailable Procedures Procedure Date CL Replacement - Vistakon Disp W/BW Soft Tax - Medical Eye Exam, New Patient Refraction Advance Directives Directive Yes / No Effective Date File Name No Information Encounters Encounter Description Practice Location Reason(s) For Visit Diagnoses Date Provider Providers Copied on Encounter [facility], [address] [place] [address] [address], [place], [place], [id number], tel:[phone] [facility] No Information Sep-2 8-200 7 Dumont OD Maicol. [address] [facility] [facility] , [address], [place], [place], [facility], [place]. tel:[phone] [facility], [address] [place] [address] [address], [place], [place], [id number], tel:[phone] [facility] No Information Sep-1 3-200 7 Dumont OD Maicol. [address] [facility] , [address], [place], [place], [facility], [place]. tel:[phone] Referring Provider: Bharat Gurrola MD F, [address] [facility], [place], [address]. tel:[phone] Family History Family Member Type Diagnosis Age At Onset No Information Payers Payer name Insurance type Covered alliance party ID Authoriza tion(s) No Information Social [...]
--- OUTSIDE RECORDS SUMMARY | 2025-01-01 14:27 | XMS_ITS | Referral Summary ---
Author Organization [facility] [address] Address [address] [place] [address] Care Team Providers Care Telegraph Editor Name Role Phone Chang Ward MD Unavailable Horacio Ma MD Primary Care Provider [phone] Encounters Date Type Department Care Team Description 12/21/2024 7:41 AM CDT - 12/21/2024 11:59 PM CDT Hospital Encounter [facility] Medical [facility] Orthopedics and Sports Medicine [address] [place] [phone] Discharge Disposition: Discharge to home or self care 12/21/2024 8:30 AM CDT Office Visit [facility] Medical [facility] Orthopedics and Sports Medicine [address] [place] [phone] Sukhjinder Galdamez MD Right knee pain, unspecified chronicity (Primary Dx); Pain due to total right knee replacement, initial encounter 12/14/2024 Telephone [facility] Specialists of [address] [place] [phone] Lauren Manzano LPN Forms/questionnaires ([email or web address]) 12/06/2024 Telephone [facility] Specialists of [address] [address] Raj Stoddard MD 10/26/2024 7:42 AM CDT - 10/26/2024 11:59 PM CDT Hospital Encounter [facility] Medical [facility] Orthopedics and Sports Medicine [address] [facility] [address] [place] [phone] Discharge Disposition: Discharge to home or self care 10/26/2024 10:00 AM CDT Office Visit [facility] Orthopedics and Sports Medicine [address] [place] [address] [address] [place] [address] Sukhjinder Galdamez MD Trochanteric bursitis, right hip (Primary Dx); Right hip pain 10/12/2024 Telephone [facility] of [address] [place] [address] Raj Stoddard MD [employer] OV request from Last 3 Months Allergies [...] 04/12/2024 Assessment & Plan (04/12/2024 11:22 AM BUSINESS CONSULTANT): Started on Fosamax. Continue taking vitamin D. [...] surgery. Updated referral and reached out to [facility] orthopedic surgery Dr. Ward, plan [...] Rosuvastatin 40mg. Last lipid panel: 02/19/23 LDL=73, PR=856. No changes at this time. Assessment & Plan (08/12/2023 11:01 AM BUSINESS CONSULTANT): Chronic, stable LDL cholesterol goal Continue rosuvastatin Assessment & Plan (05/04/2023 10:39 AM BUSINESS CONSULTANT): Chronic problem, currently taking Rosuvastatin 40mg. Last lipid panel: 02/19/23 LDL=73, QF=919. No changes at this time. Assessment & Plan (01/19/2023 10:03 AM CDT): Chronic, well controlled Continue Rosuvastatin Assessment & Plan (08/18/2022 10:33 AM CDT): Chronic problem, currently taking Rosuvastatin 40mg. Last lipid panel: 01/30/22 LDL=62, EV=864. No changes at this time. Hypertension associated with stage 2 chronic kidney disease due to type 2 diabetes mellitus 08/17/2022 Assessment & Plan (04/12/2024 11:42 AM BUSINESS CONSULTANT): Normotensive. Continue taking lisinopril. Red flags reviewed. Assessment & Plan (12/16/2023 10:21 AM CDT): Chronic problem, BP controlled on current lisinopril 40mg daily. No changes at this time. Assessment & Plan (09/13/2023 11:43 AM CDT): Normotensive. Continue lisinopril, clonidine. Will continue monitor. Assessment & Plan (05/04/2023 10:39 AM BUSINESS CONSULTANT): Chronic problem, BP controlled on current lisinopril 40mg daily. No changes at this time. Assessment & Plan (08/18/2022 10:33 AM CDT): Chronic problem, BP controlled on current quinapril 40mg daily. No changes at this time. Mild cognitive impairment 05/28/2022 Assessment & Plan (05/28/2022 4:07 PM BUSINESS CONSULTANT): Patient started on donepezil around 01/2022 and [...] barefoot. Assessment & Plan (08/12/2023 11:00 AM BUSINESS CONSULTANT): Foot care discussed Continue gabapentin Assessment & Plan (05/04/2023 11:00 AM BUSINESS CONSULTANT): Chronic problem. Currently taking Gabapentin 300mg bid. [...] aspirin starting Wednesday 11/22. Coronary arteriosclerosis in [place] artery 02/06 Overview (09/11/2016): CAD in [place] artery Impairment of balance 02/07/2016 Overview (09/11/2016): [...] UNCNTRLD Assessment & Plan (06/08/2024 12:04 PM BUSINESS CONSULTANT): Chronic, uncontrolled with a higher A1c Importance [...] placed. Assessment & Plan (08/12/2023 11:00 AM BUSINESS CONSULTANT): Chronic, stable but not at goal Importance of diet and exercise discussed Continue current regimen with Levemir, Humalog, Ozempic and Farxiga Patient interested in an insulin pump Will get C-peptide, fasting glucose and galen antibody If appropriate, will start process for insulin pump Assessment & Plan (05/04/2023 10:58 AM BUSINESS CONSULTANT): Chronic problem. A1c improved from 8.0% 01/2023 [...] hours). Assessment & Plan (07/09/2022 4:06 PM BUSINESS CONSULTANT): Hba1c was Lab Results Component Value Date [...] Send me a message every week, via [employer], to let me know how you are [...] stroke Assessment & Plan (05/28/2022 4:08 PM BUSINESS CONSULTANT): Continues tight control of BP, statin and [...] often do you attend chur ch or restorationism services? 1 to 4 times per year 08/20/2022 Do you belong to any clubs o r organizations such as bahai groups, unions, fraternal or athletic groups, or [...] staff should administer the PHQ-9) 0 06/08/2024 [facility] [...] on file Legal Sex Female 6:13 AM BUSINESS CONSULTANT Gender Identity Not on file Sexual Orientation Straight 06/08/2024 11 :24 AM BUSINESS CONSULTANT Last Filed Vital Signs Vital Sign Reading Time Taken Comments Blood Pressure 151/69 10/26/2024 9:36 AM CDT Pulse 78 10/26/2024 9:36 AM CDT Temperature 36.2 C (97.2 F) 05/01/2024 7:45 AM BUSINESS CONSULTANT Respiratory Rate 20 06/08/2024 11:34 AM BUSINESS CONSULTANT Oxygen Saturation 97% 05/01/2024 7:45 AM BUSINESS CONSULTANT Inhaled Oxygen Concentration - - Weight 77.1 kg (170 lb) 12/21/2024 8:30 AM CDT Height 152.4 cm (5') 12/21/2024 8:30 AM CDT Body Mass Index 33.2 12/21/2024 8:30 AM CDT Plan of Treatment Not on file Medical Devices Implanted Type Area Scallop Cutter Device Identifier Shelf Expiration Date Model / Serial / Lot [employer] Dvr [id number] Crosslock Vesta Screw Hole Fix Angle Radius Left 1318-21-050 - [id number] Implanted:Qty: 1 on 11/26/2022 by Chang Ward MD at [facility] Left: Wrist [employer] 1318-21-050 / / [employer] Dvr 2.7mm 18mm 3 Lead Thread Lock Taper Head Radius Distal Volar [id number] - [id number] Implanted:Qty: 1 on 11/26/2022 by Chang Ward MD at [facility] Left: Wrist [employer] [id number] / / [employer] Dvr 2.7mm 20mm Lock Spine Screw Bone Nonsterile 131120 - [id number] Implanted:Qty: 2 on 11/26/2022 by Chang Ward MD at [facility] Left: Wrist [employer] [id number] / / [employer] 2.7mm 13mm Nonlock Low Profile Radius Distal Screw Bone [id number] - [id number] Implanted:Qty: 1 on 11/26/2022 by Chang Ward MD at [facility] Left: Wrist [employer] [id number] / / [employer] Dvr 2.7mm 14mm Lock Cortical Screw Bone Nonsterile Latex Free 1311 - [id number] Implanted:Qty: 2 on 11/26/2022 by Chang Ward MD at [facility] Left: Wrist [employer] [id number] / / [employer] Dvr 2.7mm 13mm Lock 3 Lead Thread Crosslock Taper Head Radius - [id number] Implanted:Qty: 1 on 11/26/2022 by Chang Ward MD at [facility] Left: Wrist [employer] [id number] / / Procedures Procedure Name Priority Date/Time Associated Diagnosis Comments XR KNEE RIGHT 3 VIEWS Schedule Routine, Read Routine (OP Routine) 12/21/2024 8:35 AM CDT Right knee pain, unspecified chronicity CO ARTHROCENTESIS ASPIR&/INJ MAJOR JT/BURSA W/O US Routine 10/26/2024 10:00 AM CDT Trochanteric bursitis, right hip XR HIP RIGHT 2 OR 3 VIEWS Schedule Routine, Read Routine (OP Routine) 10/26/2024 9:25 AM CDT Right hip pain POCT HEMOGLOBIN A1C Routine 06/08/2024 1 1:35 AM BUSINESS CONSULTANT Type 2 diabetes mellitus with hyperglycemia, with long-term current use of insulin (HCC) EGFR Routine 05/01/2024 4:27 AM BUSINESS CONSULTANT COLONOSCOPY REPORT Routine 04/04/2024 10 :21 AM [...] Read Routine (OP Routine) 04/16/2023 12:56 PM BUSINESS CONSULTANT Encounter for screening mammogram for malignant neoplasm [...] the femur or other signs of loosening. Sukhjinder Galdamez MD IMG XR PROCEDURES Final Result * CO ARTHROCENTESIS ASPIR&/INJ MAJOR JT/BURSA W/O US (10/26/2024 [...] (ABNORMAL) POCT hemoglobin A1c (06/08/2024 11:35 AM BUSINESS CONSULTANT) Hemoglobin A1C, POC 7.7 4.0 - 5.6 % Comment:None Capillary blood 06/08/2024 1 1:35 AM BUSINESS CONSULTANT us Raj Stoddard MD POINT OF CARE TEST ORDERABLES Fi nal Result * eGFR (05/01/2024 4:27 AM BUSINESS CONSULTANT) eGFR 78 >=60 mL/min/1. 73 m2 Comment: [...] last reviewed 2021. Blood 05/01/2024 4:27 AM BUSINESS CONSULTANT 05/01/2024 5:47 AM BUSINESS CONSULTANT us Bro Jameson MD LAB BLOOD ORDERABLES Final Resu lt YAMILEX JHA ([place]) 1 [employer] [facility] Department [place] [address] * Colonoscopy Report -[facility] (04/04/2024 10:21 [...] fracture and secondary osteoporosis. Patient takes vitamin-D. Scallop Cutter/Model: [employer] (S/N [id number]) CLINICAL INFORMATION: Current height: 62 inches Maximum [...] Rebecca Syed M.D. TW: TW Report ID: [id number] Reading Location: [id number] Procedure Note Rebecca Syed MD - 03/23/2024 EXAM DESCRIPTION: DEXA AXIAL SKELETON BONE DENSITY 1 OR MORE SITES REASON FOR STUDY: 74 y/o year old F with given history of: Post menopausal status. History prior fracture and secondary osteoporosis. Patient takes vitamin-D. Scallop Cutter/Model: [employer] Discovery SL (S/N [id number]) CLINICAL INFORMATION: Current height: 62 inches Maximum [...] Rebecca Syed M.D. TW: TW Report ID: [id number] Reading Location: [place] [address] Mer Vazquez NP IMG DXA PROCEDURES Final R esult * (ABNORMAL) Albumin Creatinine Ratio, Urine (02/14/2024 11:16 AM CDT) Albumin Ur 59.2 mg/L Comment: Interpretive Data No reference range established. Current interpretive data was last revised 2018. Testing performed by: [facility], [address] [place] [address]., [address] Creatinine Ur 187.7 mg/dL YAMILEX JHA (KARIME) Comment: Interpretive Data No reference range established. Current interpretive data was last revised 2018. Testing performed by: [facility], [address] [place] [address]., [address] Albumin Creatinine Ratio, Ur 32(H) 1 - 29 mg/g YAMILEX JHA (KARIME) Comment:Testing performed by : [facility], [address] [place] [address]., [id number] Urine 02/14/2024 11:1 6 AM CDT 02/14/2024 6:30 PM CDT us Mer Vazquez NP LAB URINE ORDERABLES Final Result YAMILEX JHA (KARIME) 1 [facility] Department [place] [address] * (ABNORMAL) Lipid panel (02/14/2024 11:16 AM [...] Testing performed by: [facility], [address] [place] [address]., [address] Triglycerides 175(H) <=149 mg/dL YAMILEX JHA (KARIME) [...] Testing performed by: [facility], [address] [place] [address]., [address] HDL 34(L) >=40 mg/dL YAMILEX JHA (KARIME) [...] Testing performed by: [facility], [address] [place] [address]., [address] LDL, calculated 74 <=129 mg/dL YAMILEX JHA [...] Testing performed by: [facility], [address] [place] [address]., [address] Non-HDL Cholesterol 104 mg/dL YAMILEX JHA (KARIME) [...] Testing performed by: [facility], [address] [place] [address]., [address] Chol/HDL ratio 4 REJI Page ABHIJEET (KARIME) Comment:Testing performed by : [facility], [address] [place] [address]., [address] Blood 02/14/2024 11:1 6 AM CDT 02/14/2024 6:30 PM CDT us Mer Vazquez TRIM MASTER OPERATOR LAB BLOOD ORDERABLES Final Result YAMILEX ABHIJEET (KARIME) 1 [facility] Department [place] [address] * DIABETES EYE EXAM (10/19/2023) SCRIBED DIABETIC DILATED EYE EXAM Normal Historical Provider HEALTH MAINTENANCE Final Result * Screening Mammogram Bilateral W Philipp (04/16/2023 12:56 PM BUSINESS CONSULTANT) Anatomical Region Laterality Modality Breast Bilateral Mammography 04/28/2023 2:18 PM BUSINESS CONSULTANT Impressions 04/28/2023 2:18 PM BUSINESS CONSULTANT There is no mammographic evidence of malignancy. A 1 year screening mammogram is recommended. BI-RADS: 1 - Negative. The patient has been or will be contacted. The patient will be entered into a reminder system with a target due date of 1 year for her next mammogram. Electronically signed by: Jaida Rothman M.D. Narrative 04/28/2023 2:18 PM BUSINESS CONSULTANT EXAMINATION: SCREENING MAMMOGRAM BILATERAL W PHILIPP ORDERING [...] been no suspicious interval change. Mer Vazquez TRIM MASTER OPERATOR IMG MAMMO PROCEDURES Final Result from Last 3 Months or Most Recently Relevant to Health Maintenance Insurance COMMERCIAL GENERIC MEDICARE MEDICARE [place] [address] H & W MCR SUPPLEMENT MEDICARE [facility] Address: [facility] [address] [place] [address] [place] [address] H & W MCR SUPPLEMENT Advance Directives For more information, please contact: [phone] Documents on File Type Date Recorded Patient Stator Winder Expl anation ADVANCE DIRECTIVE 06/19/2022 6:10 PM * Full Code (Latest Code Status on File) Date Activated Date Inactivated Comments 04/29/2024 9:41 PM 05/01/2024 3:08 PM Care Teams Telegraph Editor Relationship Specialty Start Date End Date Horacio Ma MD [address] [place] [address] PCP - General Family Practice 10/02/24 Chang Ward MD Surgeon Orthopedic Surgery 11/26/22
[2025-01-01 18:07] VITALS: BP 176/84; PULSE 79; RESP 18; O2SAT 98
== END 2025-01-01 18:08 | disposition home or self-care (01) ==
PROVIDERS: Registered Nurse; Emergency Provider Emergency Medicine; PCP Family Medicine
DX: R10.12 Left upper quadrant pain (principal); I25.10 Atherosclerotic heart disease of native coronary artery without angina pectoris; E78.5 Hyperlipidemia, unspecified; E11.9 Type 2 diabetes mellitus without complications; M19.90 Unspecified osteoarthritis, unspecified site
CPT/HCPCS: 36415; 74177; 80053; 81001; 83690; 85025; 87086; 99284; Q9967

== ENCOUNTER 2025-03-23 13:27 | Outpatient (CLI) | payer MEDICARE, OTHER, SELFPAY ==
--- OUTSIDE RECORDS SUMMARY | 2007-03-04 08:04 | XMS_ITS | Continuity of Care Document ---
Author Organization [facility] Address [address] [place] [address] Phone Care Team Providers Care Coat Fitter Name Role Phone Dumont OD, Maicol Unavailable Unavailable Procedures Procedure Date CL Replacement - Vistakon Disp W/BW Soft Tax - Medical Eye Exam, New Patient Refraction Advance Directives Directive Yes / No Effective Date File Name No Information Encounters Encounter Description Practice Location Reason(s) For Visit Diagnoses Date Provider Providers Copied on Encounter Formerly [facility], [address] [place] [address] [address], [place], [place], [id number], tel:[phone] [facility] No Information Sep-2 8-200 7 Dumont OD Maicol. [address] [facility] , [address], [place], [place], [facility], [place]. tel:[phone] Formerly [facility], [address] [place] [address] [address], [place], [place], [id number], tel:[phone] [facility] No Information Sep-1 3-200 7 Dumont OD Maicol. [address] [facility] [facility] , [address], [place], [place], [facility], [place]. tel:[phone] Referring Provider: Bharat Gurrola MD F, [address] [facility], [place], [address]. tel:[phone] Family History Family Member Type Diagnosis Age At Onset No Information Payers Payer name Insurance type Covered libertarian ID Authoriza tion(s) No Information Social History Type Description Quantity Date Captured Comments Sex Female Smoking Status No Information Chief Complaint And Reason For Visit No Information Reason For Referral Reason For Referral No Information History Of Present Illness Encounter Date Complaint History Of Prese nt Illness No Information Functional Status Date Functional Assessmen t No Information Instructions Date Instruction Additional Infor mation No Information Assessments Type Assessment Date No Information Patient Care Teams Name Effective Dates (start - stop) Status Members No Information
--- OUTSIDE RECORDS SUMMARY | 2025-03-13 03:45 | XMS_ITS | Continuity of Care Document ---
Author Organization [facility] Address [address] [place] [address] Phone Care Team Providers Care Clinical Nurse Leader Name Role Phone Jerrell HARRY, FACC, [facility] [[email or web address]] Unavailable Unavailab le Allergies, Adverse Reactions, Alerts Substance Reaction Status Criticality No Known Allergies Active No Inform ation Medications Medication Instructions Dosage Effective Dates (start - stop) Status Comments lisinopril 40 mg tablet - Ac tive Ultra-Fine Pen Needle 31 gauge x 5/16 USE WITH INSULIN PEN TWICE A DAY DIRECTED - Active lidocaine 5 % topical patch - Active tramadol 50 mg tablet TAKE 1 TABLET BY MOUTH EVERY 8 HOURS NEEDED FOR PAIN - Active methocarbamol 500 mg tablet - Active Mounjaro 5 mg/0.5 mL subcutaneous pen injector - Active solifenacin 5 mg tablet - Ac tive Lantus Solostar U-100 Insulin 100 unit/mL (3 mL) subcutaneous pen - Active clopidogrel 75 mg tablet - A ctive dicyclomine 10 mg capsule - Active Gemtesa 75 mg tablet - Activ e rosuvastatin 40 mg tablet - Active Ozempic 1 mg/dose (4 mg/3 mL) subcutaneous pen injector - Active buspirone 7.5 mg tablet - Ac tive phenazopyridine 200 mg tablet - Active cephalexin 500 mg capsule - Active BD UF SHORT PEN NEEDLE [id number] USE WITH INSULIN PEN TWICE A DAY DIRECTED - Active Droplet Pen Needle 32 gauge x 10/20 - Active pantoprazole 40 mg tablet,delayed release - Active cetirizine 10 mg tablet TAKE 1 TABLET BY MOUTH EVERY DAY FOR RASH - Active Vowst capsule - Active vancomycin 125 mg capsule - Active vancomycin 250 mg capsule - Active alendronate 70 mg tablet PLEASE SEE ELHAM KENNY FOR DETAILED DIRECTIONS - Active metronidazole 500 mg tablet - Active Dificid 200 mg tablet - Acti ve duloxetine 60 mg capsule,delayed release - Active amoxicillin 875 mg-potassium clavulanate 125 mg tablet - Active Mucus DM 30 mg-600 mg tablet,extended release - Active fluticasone propionate 50 mcg/actuation nasal spray,suspension - Active oxybutynin chloride ER 10 mg tablet,extended release 24 hr - Active gabapentin 300 mg capsule TAKE 1 CAPSULE BY MOUTH THREE TIMES A DAY - Active Procedures Procedure Date Complex e/m visit add on OFFICE/OUTPATIENT VISIT, EST ELECTROCARDIOGRAM, COMPLETE Results Test Name Date and Time Measure Units Reference Range Abnormal Flag Status Comments Panel Description: Not Available Final [{Url}] <Url iRemMajorVer violet=1 iRemMinorVer violet=5.9.4 seq_no=c38b [id number] template_nam e=PacsEx>< Path><![CDAT A[[email or web address] [email or web address] QRQJrSQaHysN eZ2O3BysxOb+ X/lr4fGaqgQt Vec/5Du5I2cp jslCMxJH7nYS DfBOmc73ckjr ugWD4YcVaO8b jLdxST/l7xS1 B/gPdfzXE9AS ]]></Path></ Url> Final Panel Description: CAROTID Unknown Image CAROTID 1 Advance Directives Directive Yes / No Effective Date File Name No Information Encounters Encounter Description Practice Location Reason(s) For Visit Diagnoses Date Provider Providers Copied on Encounter [facility], [address] [place] [address], [id number] , tel: [phone] [facility] No Information 5 [facility] [place], [id number] , . tel: [phone] Referring Provider: Zachary Allan, [facility] [address], [place], [address] . tel:[phone] OFFICE/OUTPA TIENT VISIT, [facility], [address] [place] [address], [id number] , tel: [phone] [facility] follow up (chief complaint) Body mass index [BMI] 31.0-31.9, adultHyperlipidemiaD M type IIHTNCarotid artery syndrome Sep- 5 [facility] [place], [place], [id number] , . tel: [phone] Referring Provider: Horacio Ma, [address] [place] [address], [facility]. tel:[phone] [facility], [address] [place] [address], [id number] , tel: [phone] [facility] No Information 5 [facility] [place], [place], [id number] , . tel: [phone] [facility], [address] [place] [address], [id number] , tel: [phone] [facility] Pain in leg, unspecifiedHx of smokingAbdominal painNarrowing of arteryDM type IIHyperlipidemiaPVCs CVACarotid artery syndromeHTNFamily history of stroke 5 Jerrell Sharma. [address], [place], [id number] , [place]. tel: [phone] Family History Family Member Type Diagnosis Age At Onset Father Problem (finding) Anemia Payers Payer name Insurance type Covered green party ID Authorjuve torres(s) BRANDY MEDICARE PART B [id number] [employer] [place] [id number] Social History Type Description Quantity Date Captured Comments Sex Female Smoking Status No Information Chief Complaint And Reason For Visit No Information Reason For Referral Reason For Referral No Information Plan Of Treatment Date Type Action Status Goal Dietary manageme nt education, guidance, and counseling completed Appointment Mildred Grace BOOKED Future Order: Radiology Order Du plex scan of extracranial arteries; complete bilateral study ([id number]), Ordered on: Ordered Future Order: Lab Order Hemoglob in A1c ([id number]), Ordered on: Ordered Future Order: Lab Order [id number] ([id number]), Ordered on: Ordered Future Order: Lab Order Lipid Pa chester ([id number]), Ordered on: Ordered History Of Present Illness Encounter Date Complaint History Of Prese nt Illness follow up Functional Status Date Functional Assessmen t No Information Instructions Date Instruction Additional Infor mation Dietary management e ducation, guidance, and counseling Related to Body mass index [BMI] 31.0-31.9, adult Assessments Type Assessment Date No Information Patient Care Teams Name Effective Dates (start - stop) Status Members No Information
--- NOTE | ~2025-03-23 | US_ITS ---
EXAMINATION: US venous doppler [facility], 03/23/2025 13:37 CDT HISTORY: I73.9 - Peripheral vascular disease, unspecified COMPARISON: None Technique: Ann-scale and color Doppler images were attempted of the lower saphenofemoral junction, common femoral vein,superficial femoral vein, proximal deep femoral vein, proximal deep femoral vein, popliteal vein and posterior tibial veins. Findings: Deep Venous System:Normal flow, augmentation and compressibility. No echogenic thrombus identified. Superficial Venous SystemNo superficial thrombophlebitis. Soft tissues: Soft tissues are unremarkable. Impression: Negative for DVT. Reviewed, dictated and finalized at location P. Impression: Negative for DVT.
--- OUTSIDE RECORDS SUMMARY | 2025-03-23 13:31 | XMS_ITS | Clinical Summary ---
Author Organization [employer] Address [address] [place] [address] Care Team Providers Care Classifications Officer Cc/Cm Name Role Phone Júnior Puente MD Primary Care Provider [phone] Source Comments [facility] [employer] [facility]non-owned Affiliates and Associated Physician Practices is amultiple site organization consisting of ambulatory clinics and hospital sitesin [place], [place], [place] and [place]. This disclosure is being madepursuant to the Care Everywhere program and may not contain all information available regarding this patient. Last updated 18.[facility] Allergies No known active allergies Medications * [...] diabetes mellitus without complications 0 01/13/2013 Overview (03/07/2025): IMO 09/06/2024 IMO 03/07/2025 Stenosis of left carotid artery Family History [...] on file Legal Sex Female 5:23 PM GUM PULLER Gender Identity Not on file Sexual Orientation Not on file Last Filed Vital Signs Vital Sign Reading Time Taken Comments Blood Pressure 118/58 07/23/2020 11:30 AM GUM PULLER Pulse 74 07/23/2020 11:30 AM GUM PULLER Temperature 36.5 C (97.7 F) 07/23/2020 10:19 AM GUM PULLER Respiratory Rate 6 07/23/2020 11:30 AM GUM PULLER Oxygen Saturation 94% 07/23/2020 11:30 AM GUM PULLER Inhaled Oxygen Concentration - - Weight 70.8 kg (156 lb) 07/23/2020 8:34 AM GUM PULLER Height 157.5 cm (5' 2) 07/23/2020 8:34 AM GUM PULLER Body Mass Index 28.53 07/23/2020 8:34 AM GUM PULLER Plan of Treatment Health Maintenance Due Date [...] CREATININE 07/23/20212020, 04/11/2020, 04/11/2020, Additional history exists DEPRESSION SCREENING 06/07/2024 DIABETES - URINE PROTEIN SCREENING 06/07/2024 04/11/2020 COVID-19 VACCINE (2 - season) 2025 07/09/2020 INFLUENZA VACCINE (#1) 2025 , 03/08/2018, 03/04/2017, Additional history exists HEPATITIS B [...] PANEL (CALCIUM TOTAL) STAT 07/23/2020 8:14 AM GUM PULLER Preop examination HEMOGLOBIN A1C Routine 01/12/2013 2:30 AM CDT from Last 3 Months or Most Recently Relevant to Health Maintenance Results * (ABNORMAL) BASIC METABOLIC PANEL (CALCIUM TOTAL) (07/23/2020 8:14 AM GUM PULLER) BUN 13 7 - 26 mg/dL 07/23/2020 [...] 270 - 300 mOsm/kg 07/23/2020 8:48 AM GUM PULLER [facility] eGFR >60 >60 mL/min/1.7 3 m2 07/23/2020 8:48 AM GUM PULLER [facility] Blood BLOOD SPECIMEN / Unknown Venipuncture / Unknown 07/23/2020 8:14 AM GUM PULLER 07/23/2020 8:18 AM GUM PULLER Rod Olivas MD LAB - CHEMISTRY ORDERABLES Final Result [facility] [address] [place] [address], [facility] [phone] * (ABNORMAL) HEMOGLOBIN A1C (01/12/2013 2:30 AM CDT) Hemoglobin A1c 7.1(H) 4.4 - 6.3 % [facility] Estimated Average Glucose 157 mg/dL [facility] Blood specimen (specimen) 01/12/2013 2:30 AM CDT 01/12/2013 2:55 AM CDT Arturo Ernst MD LAB - CHEMISTRY ORDERABLES F inal Result [facility] [address] [place], [place] [address] [phone] from Last 3 Months or Most Recently Relevant to Health Maintenance Insurance MEDICARE MEDICARE COMMERCIAL GENERIC COMMERCIAL GENERIC SELF PAY NO INSURANCE Member Subscriber Plan / Payer (Ef fective for All Dates) Name:Mildred Grace Member ID:Not on file Relation to Subscriber:Not on file Name:MILDRED GRACE Subscriber ID:Not on file (Home) Address: [address] [place] [address] Payer ID:Not on file Group ID:Not on file Type:Self Pay Address: [place], [place] [address] [place] [address] MEDICARE Member Subscriber Plan / Payer (Ef fective for All Dates) Name:Mildred Grace Terrie Member ID:[id number] Relation to Subscriber:Self Name:MILDRED GRACE Subscriber ID:[id number] Payer ID:Not on file Group ID:Not on file Type:Medicare Address: [address] [place] [address] MEDICARE Member Subscriber Plan / Payer (Ef fective for All Dates) Name:GraceMildred Member ID:[id number] Relation to Subscriber:Self Name:CORIE GRACEELA Subscriber ID:[id number] Payer ID:Not on file Group ID:Not on file Type:Medicare Address: [place] [id number] [place] [address] MEDICARE Member Subscriber Plan / Payer (Ef fective for All Dates) Name:Mildred Grace Member ID:[id number] Relation to Subscriber:Self Name:Corie Gracemirian Falcon Subscriber ID:[id number] Payer ID:Not on file Group ID:Not on file Type:Medicare Address: [place] [id number] Care Teams Classifications Officer Cc/Cm Relationship Specialty Start Date End Date Júnior Puente MD [address] [place] [address] PCP - General 03/02/14
--- OUTSIDE RECORDS SUMMARY | 2025-03-23 13:31 | XMS_ITS | Encounter Summary ---
Author Organization [facility] Healthcare Address [address] [place] [address] Care Team Providers Care Slot Machine Department Floorperson Name Role Phone Chang Ward MD Unavailable [phone] Horacio Ma MD Primary Care Provider [phone] Encounter Details Date Type Department Care Team (Late st Contact Info) Description 03/21/2025 Orders Only [facility] Health Information Management [address] [place] [address] Scanning, Provider Social History Tobacco Use Types Packs/Day Years [...] or ex-partner? No 08/20/2022 Social Connection and Isolation Panel Answer Date Recorded In a typical week, how many times do you talk on the phone with family, friends, or neighbors? More than three times a week 08/20/2022 How often do you get togethe r with friends or relatives? More than three times a week 08/20/2022 How often do you attend chur or spiritism services? 1 to 4 times per year 08/20/2022 Do you belong to any clubs o r organizations such as rastafarian groups, unions, fraternal or athletic groups, or [...] staff should administer the PHQ-9) 0 06/08/2024 [facility] - Occupational Stress Questionnaire Answer [...] place to sleep or slept in a intermediate (including now)? 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 Gender Identity Not on file Sexual Orientation Straight 06/08/2024 11 :24 AM CASH ACCOUNTANT documented as of this encounter Plan of Treatment Not on file documented as of this encounter Procedures Procedure Name Priority Date/Time Associated Diagnosis Comments SCAN - OTHER ORDERS 03/21/2025 documented in this encounter Results * SCAN - OTHER ORDERS (03/21/2025) us Provider Scanning Final Result documented in this encounter Visit Diagnoses Not on filedocumented in this encounter Care Teams Slot Machine Department Floorperson Relationship Specialty Start Date End Date Horacio Ma MD [address] [place] [address] PCP - General Family Practice 10/02/24 Chang Ward MD Surgeon Orthopedic Surgery 11/26/22 documented as of this encounter
--- OUTSIDE RECORDS SUMMARY | 2025-03-23 13:31 | XMS_ITS | Clinical Summary ---
Author Organization [facility] [address] Address [address] [place] [address] Care Team Providers Care Chief Growth Officer Name Role Phone Chang Ward MD Unavailable Horacio Ma MD Primary Care Provider [phone] Allergies Active Allergy Reactions Criticality Noted Date [...] mg total) by mouth daily 3 Active alendronate (FOSAMAX) 70 mg tabletIndication s:Post-Menopausa [...] FOR 30 DAYS 5 Active Vowst capsule 05/05/202 5 Active Gemtesa 75 mg tablet 5 Active lisinopriL (PRINIVIL,ZESTRI L) 40 mg tablet TAKE 1 TABLET EVERY DAY 90 tablet 3 5 Active ketorolac (TORADOL) 10 mg tablet Take 1 tablet (10 mg total) by mouth every 6 (six) hours as needed for pain Active insulin glargine (LANTUS) 100 unit/mL (3 mL) pen for injection INJECT 30 UNITS UNDER THE SKIN 2 (TWO) TIMES A DAY 45 mL 4 5 Active Active Problems Problem Noted Date Diagnosed Date Troponin level elevated 04/29/2024 COVID 04/29/2024 Age-related osteoporosis wit hout current pathological fracture 04/12/2024 Assessment & Plan (04/12/2024 11:22 AM DUMPER): Started on Fosamax. Continue taking vitamin D. [...] surgery. Updated referral and reached out to [facility] orthopedic surgery Dr. Ward, plan for [...] Rosuvastatin 40mg. Last lipid panel: 02/19/23 LDL=73, KB=611. No changes at this time. Assessment & Plan (08/12/2023 11:01 AM DUMPER): Chronic, stable LDL cholesterol goal Continue rosuvastatin Assessment & Plan (05/04/2023 10:39 AM DUMPER): Chronic problem, currently taking Rosuvastatin 40mg. Last lipid panel: 02/19/23 LDL=73, LW=345. No changes at this time. Assessment & Plan (01/19/2023 10:03 AM CDT): Chronic, well controlled Continue Rosuvastatin Assessment & Plan (08/18/2022 10:33 AM CDT): Chronic problem, currently taking Rosuvastatin 40mg. Last lipid panel: 01/30/22 LDL=62, HJ=588. No changes at this time. Hypertension associated with stage 2 chronic kidney disease due to type 2 diabetes mellitus 08/17/2022 Assessment & Plan (04/12/2024 11:42 AM DUMPER): Normotensive. Continue taking lisinopril. Red flags reviewed. Assessment & Plan (12/16/2023 10:21 AM CDT): Chronic problem, BP controlled on current lisinopril 40mg daily. No changes at this time. Assessment & Plan (09/13/2023 11:43 AM CDT): Normotensive. Continue lisinopril, clonidine. Will continue monitor. Assessment & Plan (05/04/2023 10:39 AM DUMPER): Chronic problem, BP controlled on current lisinopril 40mg daily. No changes at this time. Assessment & Plan (08/18/2022 10:33 AM CDT): Chronic problem, BP controlled on current quinapril 40mg daily. No changes at this time. Mild cognitive impairment 05/28/2022 Assessment & Plan (05/28/2022 4:07 PM DUMPER): Patient started on donepezil around 01/2022 and [...] barefoot. Assessment & Plan (08/12/2023 11:00 AM DUMPER): Foot care discussed Continue gabapentin Assessment & Plan (05/04/2023 11:00 AM DUMPER): Chronic problem. Currently taking Gabapentin 300mg bid. [...] aspirin starting Wednesday 11/22. Coronary arteriosclerosis in [place] artery 02/06 Overview (09/11/2016): CAD in [place] artery Impairment of balance 02/07/2016 Overview (09/11/2016): Balance disorder Episodic lightheadedness 03/08/2014 Fall at home, initial encounter 03/08/2014 Heart disease 10/21/2013 Overview (12/25/2021): HYPERTENSION NOS Occlusion and stenosis of unspecified carotid ar shannon 03/02/2013 Overview (05/04/2021): Carotid disease, bilateral Diabetes mellitus 01/13/2013 Overview (12/25/2021): DMII WO [facility] UNCNTRLD Overview: DMII WO [facility] UN[facility] Overview: DMII WO [facility] UNCNTRLD Assessment & Plan (06/08/2024 12:04 PM DUMPER): Chronic, uncontrolled with a higher A1c Importance [...] placed. Assessment & Plan (08/12/2023 11:00 AM DUMPER): Chronic, stable but not at goal Importance of diet and exercise discussed Continue current regimen with Levemir, Humalog, Ozempic and Farxiga Patient interested in an insulin pump Will get C-peptide, fasting glucose and galen antibody If appropriate, will start process for insulin pump Assessment & Plan (05/04/2023 10:58 AM DUMPER): Chronic problem. A1c improved from 8.0% 01/2023 [...] hours). Assessment & Plan (07/09/2022 4:06 PM DUMPER): Hba1c was Lab Results Component Value Date [...] Send me a message every week, via Fingooroo, to let me know how you are [...] stroke Assessment & Plan (05/28/2022 4:08 PM DUMPER): Continues tight control of BP, statin and [...] Encounters Date Type Department Care Team Description 03/21/2025 Orders Only [facility] Health Information Management [address] [place] [address] Scanning, Provider 02/27/2025 9:45 AM CDT Lab [address] [address] 02/26/2025 1:45 PM CDT Office Visit [facility] Orthopedics and Sports Medicine [address] [address] Sukhjinder Galdamez MD Pain due to total right knee replacement, initial encounter (Primary Dx) 01/29/2025 1:10 PM CDT Lab [address] [address] Pain due to total right knee replacement, initial encounter 01/16/2025 Telephone [facility] Orthopedics and Sports Medicine [address] [place] [address] [address] [place] [address] Sukhjinder Galdamez MD nuc med scan results 01/08/2025 10:53 AM CDT - 01/08/2025 11:59 PM CDT Hospital Encounter [address] [address] Discharge Disposition: Discharge to home or self care 01/08/2025 10:52 AM CDT - 01/08/2025 11:59 PM CDT Hospital Encounter [address] [address] Pain due to total right knee replacement, initial encounter Discharge Disposition: Discharge to home or self care 12/21/2024 8:30 AM CDT Office Visit [facility] Orthopedics and Sports Medicine [address] [place] [address] Sukhjinder Galdamez MD Right knee pain, unspecified chronicity (Primary Dx); Pain due to total right knee replacement, initial encounter 12/21/2024 7:41 AM CDT - 12/21/2024 11:59 PM CDT Hospital Encounter [facility] Orthopedics and Sports Medicine [address] [place] [address] [address] [place] [address] Discharge Disposition: Discharge to home or self care from Last 3 Months Immunizations Immunization Administration [...] CAD Hx Other Medical dyslipidemia Diabetes mellitus diabetes Hx Other Medical PVCs Type 2 diabetes mellitus Diabete s type 2 Hyperlipidemia Hyperlipidemia Hypertension Hypertension Motion sickness Sleep apnea Stroke (HCC) Irritable bowel syndrome Frequent urination Depression Other closed intra-articular fracture of distal end of left radius with delayed healing, subsequent encounter Family History Medical History Relation Name Comments Anemia Father 2 Anemia; father of aplastic anemia at age 62, was a Hol[employer] Heart attack Mother 2 Mother Myocardial infa rction; mother had massive HI at 72 Diabetes type II Other Family [...] week 08/20/2022 How often do you attend [facility] or worship services? 1 to 4 times [...] staff should administer the PHQ-9) 0 [facility] - Occupational Stress Questionnaire Answer Date [...] place to sleep or slept in a mcfp (including now)? No 08/20/2022 PHQ-9 Answer Date [...] on file Legal Sex Female 6:13 AM DUMPER Gender Identity Not on file Sexual Orientation Straight 06/08/2024 11 :24 AM DUMPER Obstetrics History Para Term AB IAB SAB Ectopic Multiple Livin g Live Births 1 1 1 Date Outcome GA Total Labor Labor/2nd/3rd Weight Sex Type Anes PTL Sarina A1 A5 Name Clin Term Last Filed Vital Signs Vital Sign Reading Time Taken Comments Blood Pressure 136/70 02/26/2025 1:30 PM CDT Pulse 75 02/26/2025 1:30 PM CDT Temperature 36.2 C (97.2 F) 05/01/2024 7:45 AM DUMPER Respiratory Rate 20 06/08/2024 11:34 AM DUMPER Oxygen Saturation 97% 05/01/2024 7:45 AM DUMPER Inhaled Oxygen Concentration - - Weight 74.8 kg (165 lb) 02/26/2025 1:30 PM CDT Height 151.1 cm (4' 11.5) 02/26/2025 1:30 PM CD T Body Mass Index 32.77 02/26/2025 1:30 PM CDT Plan of Treatment Health Maintenance Due Date Last Done Comments Hepatitis C Screening 1950 DTaP/Tdap/Td Vaccine (1 - Tdap) 1963 Hepatitis B Screening 1970 Zoster Vaccine (1 of 2) 2002 Breast Cancer Screening-Mammogram 04/16/2024 04/16/2023, 11/11/2020, 11/11/2020 Foot Exam 10/19/2024 10/20/2023, 05/08/2022 Covid-19 Vaccine (3 - 2024-2 6 season) 2025 08/06/2020, 07/09/2020 Influenza Vaccine (#1) 2025 , 02/18/2023, 05/28/2022, Additional history exists Albumin Creatinine Ratio, Urine 02/13/2025 02/14/2024, 02/18/2023, 01/30/2022 Well Visit 65+ 02/23/2025 02/24/2024, 02/18/2023 Depression Screening 06/08/2025 06/08/2024, 04/12/2024, 02/24/2024, Additional history exists Fall Risk Assessment 06/08/2025 06/08/2024, 05/01/2024, 02/24/2024, Additional history exists Hemoglobin A1C 08/27/2025 02/27/2025, 07/2024, 12/16/2023, Additional history exists Dilated Eye Exam 10/18/2025 10/19/2023, 07/14/2022 Lipid Panel 02/27/2026 02/27/2025, 02/2024, 02/19/2023, Additional history exists eGFR 02/27/2026 02/27/2025, 04/08, 04/30/2024, Additional history exists Osteoporosis Screening-Bone Density Scan 03/23/2026 03/23/2024 Colon Cancer Screening-Colonoscopy 04/04/2029 04/04/2024, 02/10/2023 Pneumococcal vaccine 65+ Completed 03/08/2018, 02/06 Colon Cancer Screening-CT Colonography Discontinued 04/04/2024, 02/10/2023 Colon Cancer Screening-DNA Stool Discontinued 04/04/20, 02/10/2023 Colon Cancer Screening-FIT Discontinued 04/04/2024, Colon Cancer Screening-Sigmoidoscopy Discontinued 04/04/2024, 02/10/2023 Medical Devices Implanted Type Area Emergency Room Tech Device Identifier Shelf Expiration Date Model / Serial / Lot [employer] Dvr [id number] Crosslock [place] Screw Hole Fix Angle Radius Left 1318-21-050 - [id number] Implanted:Qty: 1 on 11/26/2022 by Chang Ward MD at [facility] Left: Wrist [employer] 1318-21-050 / / [employer] Dvr 2.7mm 18mm 3 Lead Thread Lock Taper Head Radius Distal Volar 1312-27-118 - [id number] Implanted:Qty: 1 on 11/26/2022 by Chang Ward MD at [facility] Left: Wrist [employer] 1312-27-118 / / [employer] Dvr 2.7mm 20mm Lock Spine Screw Bone Nonsterile 1312--120 - [id number] Implanted:Qty: 2 on 11/26/2022 by Chang Ward MD at [facility] Left: Wrist [employer] 1312-120 / / [employer] 2.7mm 13mm Nonlock Low Profile Radius Distal Screw Bone [id number] - [id number] Implanted:Qty: 1 on 11/26/2022 by Chang Ward MD at [facility] Left: Wrist [employer] [id number] / / [employer] Dvr 2.7mm 14mm Lock Cortical Screw Bone Nonsterile Latex Free 1312-27-114 - [id number] Implanted:Qty: 2 on 11/26/2022 by Chang Ward MD at [facility] Left: Wrist [employer] 1312-27-114 / / [employer] Dvr 2.7mm 13mm Lock 3 Lead Thread Crosslock Taper Head Radius 1312-27- - [id number] Implanted:Qty: 1 on 11/26/2022 by Chang Ward MD at [facility] Left: Wrist [employer] 1312-27-113 / / Procedures Procedure Name Priority Date/Time Associated Diagnosis Comments SCAN - OTHER ORDERS 03/21/2025 EGFR Routine 02/27/2025 10:12 AM CDT LIPID PANEL Routine 02/27/2025 10:12 AM CDT HEMOGLOBIN A1C Routine 02/27/2025 10:12 AM CDT COMPREHENSIVE METABOLIC PANEL Routine 02/27/2025 10:12 AM CDT ERYTHROCYTE SEDIMENTATION RATE Routine 01/29/2025 1:23 PM CDT Pain due to total right knee replacement, initial encounter CRP (ACUTE PHASE) Routine 01/29/2025 1:2 3 PM CDT Pain due to total right knee replacement, initial encounter NM BONE IMAGING 3 PHASE Schedule Routine, Read Routine (OP Routine) 01/08/2025 2:46 PM CDT Pain due to total right knee replacement, initial encounter XR KNEE RIGHT 3 VIEWS Schedule Routine, Read Routine (OP Routine) 12/21/2024 8:35 AM CDT Right knee pain, unspecified chronicity COLONOSCOPY REPORT Routine 04/04/2024 10 :21 AM CDT DEXA AXIAL SKELETON BONE DENSITY 1 OR MORE SITES Schedule Routine, Read Routine (OP Routine) 03/23/2024 1:50 PM CDT Postmenopausal ALBUMIN CREATININE RATIO, URINE Routine 02/14/2024 11:16 AM CDT Type 2 diabetes mellitus with diabetic neuropathy, with long-term current use of insulin (HCC) Hyperlipidemia associated with type 2 diabetes mellitus (HCC) Type 2 diabetes mellitus with hyperglycemia, with long-term current use of insulin ([facility]) Encounter for Medicare annual wellness exam DIABETES EYE EXAM Routine 10/19/2023 SCREENING MAMMOGRAM BILATERAL W PHILIPP Schedule Routine, Read Routine (OP Routine) 04/16/2023 12:56 PM DUMPER Encounter for screening mammogram for malignant neoplasm of breast from Last 3 Months or Most Recently Relevant to Health Maintenance Results * SCAN - OTHER ORDERS (03/21/2025) Provider Scanning Final Result * eGFR (02/27/2025 10:12 AM CDT) eGFR 60 >=60 mL/min/1. 73 m2 Comment: Interpretive Data [...] interpretive data was last reviewed 2021. Blood 02/27/2025 10:1 2 AM CDT 02/27/2025 12:35 PM CDT Zachary Allan MD LAB BLOOD ORDERABLES Final Resul t Performing Organization Address [facility] de Phone Number [facility] L[facility] [address] [facility] [place] [address] * (ABNORMAL) Hemoglobin A1c (02/27/2025 10:12 AM CDT) Hgb A1C 7.4(H) 4.0 - 5.6 % Estimated Average Glucose 166 mg/dL [facility] LIR[facility] Comment: The ADA recommends reporting an estimated Average Glucose (eAG) with all Hemoglobin A1c results using the equation derived from a study of 507 normal and diabetic adults. Minority populations were underrepresented and children were not included. (Diabetes Care 31:7468-5884, 2008). The eAG is not equivalent to a fasting glucose. Blood 02/27/2025 10:1 2 AM CDT 02/27/2025 12:28 PM CDT Zachary Allan MD LAB BLOOD ORDERABLES Final Resul t Performing Organization Address [facility] Co de Phone Number [facility] L[facility] [address] [facility] [place], [place] [id number] * (ABNORMAL) Lipid panel (02/27/2025 10:12 AM CDT) Cholesterol 102 30 - 199 mg/dL Comment: Interpretive Data [...] Interpretive Data was last revised on 2018. Triglycerides 105 <=149 mg/dL [facility] LIRIAN[facility] Comment: Interpretive Data Ages < or = [...] Interpretive Data was last revised on 2018. HDL 31(L) >=40 mg/dL [facility] L[facility] Comment: Interpretive Data Ages < or = [...] Interpretive Data was last revised on 2018. LDL, calculated 51 <=129 mg/dL [facility] LIRIAN[facility] Comment: Interpretive Data Ages < or = [...] Interpretive Data was last revised on 2024. Non-HDL Cholesterol 71 mg/dL CERNER Comment: Interpretive Data Ages < or = [...] Interpretive Data was last revised on 2018. Chol/HDL ratio 3 CERNER CH Blood 02/27/2025 10:1 2 AM CDT 02/27/2025 12:28 PM CDT Zachary Allan MD LAB BLOOD ORDERABLES Final Resul t [facility] [address] Department [place] [address] * Comprehensive metabolic panel (02/27/2025 10:12 AM CDT) Sodium 142 135 - 145 mmol/L Potassium, pl 4.3 3.3 - 4.9 mmol/L CERNER CH Chloride 105 97 - 110 mmol/L C[facility] CH CO2 26 22 - 32 mmol/L C[facility]ER CH Anion gap 11 2 - 15 mmol/L C[facility]ER CH BUN 17 6 - 25 mg/dL CERNER CH Creatinine 1.00 0.60 - 1.10 mg/dL C[facility]ER CH Glucose 114 70 - 199 mg/dL CERNER CH Comment: Interpretive Data Fasting glucose >/= 126 mg/dl is diagnostic for diabetes. Fasting is defined as no caloric intake [...] interpretive data was last revised 2022. Calcium 9.3 8.5 - 10.3 mg/dL CERNER CH Bilirubin, total 0.7 0.1 - 1.2 mg/dL CERNER CH Protein, pl 6.5 6.5 - 8.5 g/dL CERNER CH Albumin 4.1 3.5 - 5.0 g/dL CERNER CH Alk phos 80 40 - 130 Units/L [facility] CH ALT 11 7 - 45 Units/L C[facility]ER CH AST 20 10 - 45 Units/L CERNER CH Blood 02/27/2025 10:1 2 AM CDT 02/27/2025 12:28 PM CDT Zachary Allan MD LAB BLOOD ORDERABLES Final Resul t [facility] [address] Department [place] [address] * Erythrocyte sedimentation rate (01/29/2025 1:23 PM CDT) Erythrocyte sedimentation rate 9 1 - 30 mm/hr Blood 01/29/2025 1:23 PM CDT 01/29/2025 1:38 PM CDT Sukhjinder Galdamez MD LAB BLOOD ORDERABLES [facility] al Result [facility] [address] [facility] Department [place] [address] * CRP (acute phase) (01/29/2025 1:23 PM CDT) CRP <3.0 <=10.0 mg/L [facility] MAZAR[facility] (KARIME) Blood 01/29/2025 1:23 PM CDT 01/29/2025 1:38 PM CDT us Sukhjinder Galdamez MD LAB BLOOD ORDERABLES Fin al Result [facility] (KARIME) [address] [facility] Department [place] [address] * NM Bone Imaging 3 Phase (01/08/2025 2:46 PM CDT) Anatomical Region Laterality Modality N/A Nuclear Medicine 01/08/2025 3:04 PM CDT Narrative 01/08/2025 3:13 PM CDT EXAM DESCRIPTION: NM BONE IMAGING 3 PHASE REASON FOR STUDY: Knee replacement, fracture suspected, xray done RADIOPHARMACEUTICAL: 26 mCi Tc-99m MDP via a right antecubital IV site TECHNIQUE: Limited three phase scintigrams of the bilateral knees were obtained. COMPARISON: Prior Bone Scan: No prior bone scan. Prior Anatomic imaging: Right knee radiograph 12/21/2024. FINDINGS: There is slight hyperemia of the right knee on the dynamic flow images. On the blood pool images there is activity increased at the femoral bone prosthesis interface in the right knee. There is some periprosthetic uptake most pronounced in the right lateral tibial plateau at the bone prosthesis interface, although the intensity is less than typically seen with arthroplasty loosening. There is an arthritic pattern of activity in the contralateral left knee. IMPRESSION: 1. Three-phase positivity of the right knee raises the possibility of early arthroplasty loosening, although the intensity is less than typically seen. If this is clinically uncertain, could consider a follow-up in 3-6 months, increasing activity over time would elevate suspicion of loosening. 2. Delayed activity in the right knee is most pronounced in the lateral tibial plateau at the bone prosthesis interface. THIS IS AN ELECTRONICALLY VERIFIED FINAL REPORT 01/08/2025 3:13 PM - Electronically signed by Burak Munoz M.D. CH: DEANDRA Report ID: [id number] Reading Location: [id number] Procedure Note Burak Munoz Jr., MD - 01/08/2025 EXAM DESCRIPTION: NM BONE IMAGING 3 PHASE REASON FOR STUDY: Knee replacement, fracture suspected, xray done RADIOPHARMACEUTICAL: 26 mCi Tc-99m MDP via a right antecubital IVsite TECHNIQUE: Limited three phase scintigrams of the bilateral knees were obtained. COMPARISON: Prior Bone Scan: No prior bone scan. Prior Anatomic imaging: Right knee radiograph 12/21/2024. FINDINGS: There is slight hyperemia of the right knee on the dynamic flow images.On the blood pool images there is activity increased at the femoral bone prosthesis interface in the right knee. There is some periprostheticuptake most pronounced in the right lateral tibial plateau at the bone prosthesis interface, although the intensity is less than typically seen with arthroplasty loosening. There is an arthritic pattern of activity in the contralateral left knee. IMPRESSION: 1. Three-phase positivity of the right knee raises the possibility ofearly arthroplasty loosening, although the intensity is less than typicallyseen. If this is clinically uncertain, could consider a follow-up in 3-6 months, increasing activity over time would elevate suspicion of loosening. 2. Delayed activity in the right knee is most pronounced in the lateral tibial plateau at the bone prosthesis interface. THIS IS AN ELECTRONICALLY VERIFIED FINAL REPORT 01/08/2025 3:13 PM - Electronically signed by Burak Munoz M.D. CH: DEANDRA Report ID: [id number] Reading Location: [id number] Sukhjinder Galdamez MD [facility] PROCEDURES Final Result * XR Knee Right 3 View (12/21/2024 [...] MD IMG XR PROCEDURES Final Result * Colonoscopy Report -[facility] (04/04/2024 10:21 AM CDT) [...] fracture and secondary osteoporosis. Patient takes vitamin-D. Emergency Room Tech/Model: Baboo Discovery SL (S/N [id number]) CLINICAL INFORMATION: Current height: 62 inches Maximum [...] Rebecca Syed M.D. TW: TW Report ID: [id number] Reading Location: [id number] Procedure Note Rebecca Syed MD - 03/23/2024 EXAM DESCRIPTION: DEXA AXIAL SKELETON BONE DENSITY 1 OR MORE SITES REASON FOR STUDY: 74 y/o year old F with given history of: Post menopausal status. History prior fracture and secondary osteoporosis. Patient takes vitamin-D. Emergency Room Tech/Model: Baboo Discovery SL (S/N [id number]) CLINICAL INFORMATION: Current height: 62 inches Maximum [...] Rebecca Syed M.D. TW: TW Report ID: [id number] Reading Location: [place] [address] Mer Vazquez NP IMG DXA PROCEDURES Final R esult * (ABNORMAL) Albumin Creatinine Ratio, Urine (02/14/2024 11:16 AM CDT) Albumin Ur 59.2 mg/L Comment: Interpretive Data No reference range established. Current interpretive data was last revised 2018. Testing performed by: [address] [place] [address] Creatinine Ur 187.7 mg/dL [facility] (KARIME) Comment: Interpretive Data No reference range established. Current interpretive data was last revised 2018. Testing performed by: [address] [place] [address] Albumin Creatinine Ratio, Ur 32(H) 1 - 29 mg/g [facility] J[facility] (KARIME) Comment:Testing performed by : [facility], [address] [place] [address]., [id number] Urine 02/14/2024 11:1 6 AM CDT 02/14/2024 6:30 PM CDT Mer Vazquez TRUST ADMINISTRATIVE ASSISTANT LAB URINE ORDERABLES Final Result [facility] (KARIME) [address] [facility] Department of Laboratories [place], [place] [id number] * DIABETES EYE EXAM (10/19/2023) SCRIBED DIABETIC DILATED EYE EXAM Normal Historical Provider HEALTH MAINTENANCE Final Result * Screening Mammogram Bilateral W Philipp (04/16/2023 12:56 PM DUMPER) Anatomical Region Laterality Modality Breast Bilateral Mammography 04/28/2023 2:18 PM DUMPER Impressions 04/28/2023 2:18 PM DUMPER There is no mammographic evidence of malignancy. A 1 year screening mammogram is recommended. BI-RADS: 1 - Negative. The patient has been or will be contacted. The patient will be entered into a reminder system with a target due date of 1 year for her next mammogram. Electronically signed by: Jaida Rothman M.D. Narrative 04/28/2023 2:18 PM DUMPER EXAMINATION: SCREENING MAMMOGRAM BILATERAL W PHILIPP ORDERING [...] been no suspicious interval change. Mer Vazquez TRUST ADMINISTRATIVE ASSISTANT IMG MAMMO PROCEDURES Final Result from Last 3 Months or Most Recently Relevant to Health Maintenance Insurance MEDICARE MEDICARE LOCAL [address] SUPPLEMENT MEDICARE [place] [address] [address] [employer] SUPPLEMENT Advance Directives For more information, please contact: [phone] Documents on File Type Date Recorded Patient Biology Department Chair Expl anation ADVANCE DIRECTIVE 06/19/2022 6:10 PM * Full Code (Latest Code Status on File) Date Activated Date Inactivated Comments 04/29/2024 9:41 PM 05/01/2024 3:08 PM Care Teams Chief Growth Officer Relationship Specialty Start Date End Date Horacio Ma MD [address] [place] [address] PCP - General Family Practice 10/02/24 Chang Ward MD Surgeon Orthopedic Surgery 11/26/22
== END 2025-03-23 13:28 | disposition home or self-care (01) ==
PROVIDERS: PCP Family Medicine; Visit Provider Family Medicine
DX: I73.9 Peripheral vascular disease, unspecified (principal); M79.89 Other specified soft tissue disorders
CPT/HCPCS: 93970

== ENCOUNTER 2025-03-26 10:30 | Outpatient (RCR) | payer MEDICARE, OTHER, SELFPAY | END 2025-04-09 10:00 | disposition home or self-care (01) | LOC: ANHDMC 10:30 | PROVIDERS: PCP Family Medicine; Visit Provider Nurse Practitioner Family | DX: E11.40 Type 2 diabetes mellitus with diabetic neuropathy, unspecified (principal); Z71.3 Dietary counseling and surveillance; Z71.89 Other specified counseling | CPT/HCPCS: G0108 ==

== ENCOUNTER 2025-05-08 14:47 | Outpatient (CLI) | payer MEDICARE, OTHER, SELFPAY ==
--- NOTE | ~2025-05-08 | XR_ITS ---
XR knee RT min 4V 05/08/2025 15:21 Indication: Right knee pain Procedure: 4 views right knee Comparison: No prior studies for comparison. Findings: There is a right total knee arthroplasty. No fracture, subluxation or dislocation. No significant soft tissue abnormality. No foreign bodies. There is atherosclerosis. Osteopenia. Impression: 1: No acute bone or joint abnormality. Prosthesis well seated. Reviewed, dictated and finalized at location I. ERTING SUPERVISOR Impression: 1: No acute bone or joint abnormality. Prosthesis well seated.
--- NOTE | ~2025-05-08 | XR_ITS ---
EXAMINATION: XR knee LT min 4V, 05/08/2025 15:03 VETERINARY PATHOLOGIST HISTORY: M25.519 - Pain in unspecified shoulder COMPARISON: No comparisons available. Findings: No acute fracture or malalignment. Moderate to severe tricompartmental degenerative changes, small effusion Soft tissues unremarkable. Impression: No acute fracture or malalignment. Reviewed, dictated and finalized at location P. RINARY PATHOLOGIST Impression: No acute fracture or malalignment.
--- NOTE | ~2025-05-08 | XR_ITS ---
EXAMINATION: XR shoulder RT min 2V, 05/08/2025 15:03 COAL BRIQUETTE MACHINE OPERATOR HISTORY: M25.519 - Pain in unspecified shoulder COMPARISON: No comparisons available. Findings: No acute fracture or malalignment. Moderate degenerative changes Soft tissues unremarkable. Impression: No acute fracture or malalignment. Reviewed, dictated and finalized at location P. BRIQUETTE MACHINE OPERATOR Impression: No acute fracture or malalignment.
--- OUTSIDE RECORDS SUMMARY | 2025-05-08 16:17 | XMS_ITS | Clinical Summary ---
Author Organization [employer] Address [address] [address] Care Team Providers Care Engine Assembly Supervisor Name Role Phone Júnior Puente MD Primary Care Provider [phone] Source Comments [employer],non-owned Affiliates and Associated Physician Practices is amultiple site organization consisting of ambulatory clinics and hospital sitesin [place], [place], [place] and [place]. This disclosure is being madepursuant to the Care Everywhere program and may not contain all information available regarding this patient. Last updated 18.[employer] Allergies No known active allergies Medications * [...] Years Used Date Smoking Tobacco: Former Cigarettes 0 Q uit: 03/08/2002 Smokeless Tobacco: Never Alcohol Use Standard Drinks/Week Comments Yes 0 (1 standard drink = 0.6 oz pur e alcohol) Comments Unknown Sex and Gender Information Value Date Recorded Sex Assigned at Not on file Legal Sex Female 5:23 PM FITNESS AND WELLNESS MANAGER Gender Identity Not on file Sexual Orientation Not on file Last Filed Vital Signs Vital Sign Reading Time Taken Comments Blood Pressure 118/58 07/23/2020 11:30 AM FITNESS AND WELLNESS MANAGER Pulse 74 07/23/2020 11:30 AM FITNESS AND WELLNESS MANAGER Temperature 36.5 C (97.7 F) 07/23/2020 10:19 AM FITNESS AND WELLNESS MANAGER Respiratory Rate 6 07/23/2020 11:30 AM FITNESS AND WELLNESS MANAGER Oxygen Saturation 94% 07/23/2020 11:30 AM FITNESS AND WELLNESS MANAGER Inhaled Oxygen Concentration - - Weight 70.8 kg (156 lb) 07/23/2020 8:34 AM FITNESS AND WELLNESS MANAGER Height 157.5 cm (5' 2) 07/23/2020 8:34 AM FITNESS AND WELLNESS MANAGER Body Mass Index 28.53 07/23/2020 8:34 AM FITNESS AND WELLNESS MANAGER Plan of Treatment Health Maintenance Due [...] 50+ (1 of 2 - PCV) 1971 Respiratory Syncytial Virus (RSV) Vaccine Pt: or over 60 yrs (1 - Risk 50-74 years 1-dose series) 2002 ZOSTER VACCINE (1 of 2) 2002 DIABETES RETINOPATHY SCREENING 06/27/2020 DIABETES-FOOT EXAM WITH MONOFILAMENT 06/27/2020 DIABETES-HGB A1C 06/27/2020 01/12/2013 DIABETES-SERUM CREATININE 07/23/20212020, 09/15/2017, 2017, Additional history exists DEPRESSION SCREENING 06/07/2024 DIABETES - URINE PROTEIN SCREENING 06/07/2024 COVID-19 VACCINE (2 - 2024- season) 2025 07/09/2020 INFLUENZA VACCINE (#1) 2025 [...] PANEL (CALCIUM TOTAL) STAT 07/23/2020 8:14 AM FITNESS AND WELLNESS MANAGER Preop examination HEMOGLOBIN A1C Routine 01/12/2013 2:30 AM CDT from Last 3 Months or Most Recently Relevant to Health Maintenance Results * (ABNORMAL) BASIC METABOLIC PANEL (CALCIUM TOTAL) (07/23/2020 8:14 AM FITNESS AND WELLNESS MANAGER) BUN 13 7 - 26 mg/dL [...] >60 mL/min/1.7 3 m2 07/23/2020 8:48 AM FITNESS AND WELLNESS MANAGER [facility] Blood BLOOD SPECIMEN / Unknown Venipuncture / Unknown 07/23/2020 8:14 AM FITNESS AND WELLNESS MANAGER 07/23/2020 8:18 AM FITNESS AND WELLNESS MANAGER Rod Olivas MD LAB - CHEMISTRY ORDERABLES Final Result [facility] [address] [place] [address], [facility] [phone] * (ABNORMAL) HEMOGLOBIN A1C (01/12/2013 2:30 AM CDT) Hemoglobin A1c 7.1(H) 4.4 - 6.3 % [facility] Estimated Average Glucose 157 mg/dL [facility] Blood specimen (specimen) 01/12/2013 2:30 AM CDT 01/12/2013 2:55 AM CDT Arturo Ernst MD LAB - CHEMISTRY ORDERABLES F inal Result [facility] [address] [place] [address], [facility] [phone] from Last 3 Months or Most Recently Relevant to Health Maintenance Insurance MEDICARE MEDICARE COMMERCIAL GENERIC COMMERCIAL GENERIC SELF PAY NO INSURANCE Member Subscriber Plan / Payer (Ef fective for All Dates) Name:Mildred Grace Member ID:Not on file Relation to Subscriber:Not on file Name:MILDRED GRAEC Subscriber ID:Not on file (Home) Address: [address] [place] [id number] Payer ID:Not on file Group ID:Not on file Type:Self Pay Address: [place], [place] [address] [place] [address] MEDICARE Member Subscriber Plan / Payer (Ef fective for All Dates) Name:Mildred Grace Terrie Member ID:[id number] Relation to Subscriber:Self Name:MILDRED GRACE Subscriber ID:[id number] Payer ID:Not on file Group ID:Not on file Type:Medicare Address: [place] [id number] [place] [address] MEDICARE Member Subscriber Plan / Payer (Ef fective for All Dates) Name:Mildred Grace Terrie Member ID:[id number] Relation to Subscriber:Self Name:MILDRED GRACE Subscriber ID:[id number] Payer ID:Not on file Group ID:Not on file Type:Medicare Address: [address] [place] [address] MEDICARE Member Subscriber Plan / Payer (Ef fective for All Dates) Name:Mildred Grace Terrie Member ID:[id number] Relation to Subscriber:Self Name:Mildred Grace Subscriber ID:[id number] Payer ID:Not on file Group ID:Not on file Type:Medicare Address: [address] Care Teams Engine Assembly Supervisor Relationship Specialty Start Date End Date Júnior Puente MD [address] [place] [address] PCP - General 03/02/14
--- OUTSIDE RECORDS SUMMARY | 2025-05-08 16:17 | XMS_ITS | Clinical Summary ---
Author Organization [facility] [address] Address [address] [place] [address] Care Team Providers Care Hand Candy Cutter Name Role Phone Chang Ward MD Unavailable [phone] Horacio Ma MD Primary Care Provider [phone] Allergies Active Allergy Reactions Criticality Noted Date [...] next 30 min. 12 tablet 3 4 Active guaiFENesin-dext romethorphan ER (MUCINEX DM) 600-30 [...] 04/12/2024 Assessment & Plan (04/12/2024 11:22 AM SHOW CARD LETTERER): Started on Fosamax. Continue taking vitamin D. [...] surgery. Updated referral and reached out to [facility] orthopedic surgery Dr. Ward, plan [...] Rosuvastatin 40mg. Last lipid panel: 02/19/23 LDL=73, SI=614. No changes at this time. Assessment & Plan (08/12/2023 11:01 AM SHOW CARD LETTERER): Chronic, stable LDL cholesterol goal Continue rosuvastatin Assessment & Plan (05/04/2023 10:39 AM SHOW CARD LETTERER): Chronic problem, currently taking Rosuvastatin 40mg. Last lipid panel: 02/19/23 LDL=73, TX=488. No changes at this time. Assessment & Plan (01/19/2023 10:03 AM CDT): Chronic, well controlled Continue Rosuvastatin Assessment & Plan (08/18/2022 10:33 AM CDT): Chronic problem, currently taking Rosuvastatin 40mg. Last lipid panel: 01/30/22 LDL=62, BG=945. No changes at this time. Hypertension associated with stage 2 chronic kidney disease due to type 2 diabetes mellitus 08/17/2022 Assessment & Plan (04/12/2024 11:42 AM SHOW CARD LETTERER): Normotensive. Continue taking lisinopril. Red flags reviewed. Assessment & Plan (12/16/2023 10:21 AM CDT): Chronic problem, BP controlled on current lisinopril 40mg daily. No changes at this time. Assessment & Plan (09/13/2023 11:43 AM CDT): Normotensive. Continue lisinopril, clonidine. Will continue monitor. Assessment & Plan (05/04/2023 10:39 AM SHOW CARD LETTERER): Chronic problem, BP controlled on current lisinopril 40mg daily. No changes at this time. Assessment & Plan (08/18/2022 10:33 AM CDT): Chronic problem, BP controlled on current quinapril 40mg daily. No changes at this time. Mild cognitive impairment 05/28/2022 Assessment & Plan (05/28/2022 4:07 PM SHOW CARD LETTERER): Patient started on donepezil around 01/2022 and [...] barefoot. Assessment & Plan (08/12/2023 11:00 AM SHOW CARD LETTERER): Foot care discussed Continue gabapentin Assessment & Plan (05/04/2023 11:00 AM SHOW CARD LETTERER): Chronic problem. Currently taking Gabapentin 300mg bid. [...] aspirin starting Wednesday 11/22. Coronary arteriosclerosis in [place] artery 02/06 Overview (09/11/2016): CAD in [place] artery Impairment of balance 02/07/2016 Overview (09/11/2016): Balance disorder Episodic lightheadedness 03/08/2014 Fall at home, initial encounter 03/08/2014 Heart disease 10/21/2013 Overview (12/25/2021): HYPERTENSION NOS Occlusion and stenosis of unspecified carotid ar shannon 03/02/2013 Overview (05/04/2021): Carotid disease, bilateral Diabetes mellitus 01/13/2013 Overview (12/25/2021): DMII WO CMP UNCNTRLD Overview: DMII WO CMP UNCNTRLD Overview: DMII WO [facility] [address] UNCNTRLD Assessment & Plan (06/08/2024 12:04 PM SHOW CARD LETTERER): Chronic, uncontrolled with a higher A1c Importance [...] placed. Assessment & Plan (08/12/2023 11:00 AM SHOW CARD LETTERER): Chronic, stable but not at goal Importance of diet and exercise discussed Continue current regimen with Levemir, Humalog, Ozempic and Farxiga Patient interested in an insulin pump Will get C-peptide, fasting glucose and galen antibody If appropriate, will start process for insulin pump Assessment & Plan (05/04/2023 10:58 AM SHOW CARD LETTERER): Chronic problem. A1c improved from 8.0% 01/2023 [...] hours). Assessment & Plan (07/09/2022 4:06 PM SHOW CARD LETTERER): Hba1c was Lab Results Component Value Date [...] Send me a message every week, via [employer], to let me know how you are [...] stroke Assessment & Plan (05/28/2022 4:08 PM SHOW CARD LETTERER): Continues tight control of BP, statin and [...] (09/10/2016): Obesity (BMI 30-39.9) Dizziness and giddiness 03/08/2014 12/2 07/2021 Pure hypercholesterolemia 10/21/2013 Overview (09/12/2016): PURE HYPERCHOLESTEROLEM Atherosclerosis of coronary artery 01/23/2013 11/01/2017 Overview (09/12/2016): COR ATH UNSP VSL NTV/GFT Hypertension 01/13/2013 08/17/2022 Overview (12/25/2021): Essential hypertension Overview: Essential hypertension Encounters Date Type Department Care Team Description 03/21/2025 Orders Only [facility] Health Information Management [address] [place] [address] Scanning, Provider 02/27/2025 9:45 AM CDT Lab [address] [address] 02/26/2025 1:45 PM CDT Office Visit [facility] Orthopedics and Sports Medicine [address] [place] [phone] Sukhjinder Galdamez MD Pain due to total right knee replacement, initial encounter (Primary Dx) from Last 3 Months Immunizations [...] Mother Myocardial infa rction; mother had massive OH at 72 Diabetes type II Other Family [...] week 08/20/2022 How often do you attend up health system or synagogue services? 1 to 4 times per year 08/20/2022 Do you belong to any clubs o r organizations such as evangelical groups, unions, fraternal or athletic groups, or [...] staff should administer the PHQ-9) 0 06/08/2024 [facility] - [...] on file Legal Sex Female 6:13 AM SHOW CARD LETTERER Gender Identity Not on file Sexual Orientation Straight 06/08/2024 11 :24 AM SHOW CARD LETTERER Obstetrics History Para Term AB IAB SAB [...] 36.2 C (97.2 F) 05/01/2024 7:45 AM SHOW CARD LETTERER Respiratory Rate 20 06/08/2024 11:34 AM SHOW CARD LETTERER Oxygen Saturation 97% 05/01/2024 7:45 AM SHOW CARD LETTERER Inhaled Oxygen Concentration - - Weight 74.8 [...] 10/18/2025 10/19/2023, 07/14/2022 Lipid Panel 02/27/2026 02/27/2025, 090 02/2024, 02/19/2023, Additional history exists eGFR 02/27/2026 02/27/2025, 04/08, 04/30/2024, Additional history exists Osteoporosis Screening-Bone Density Scan 03/23/2026 03/23/2024 Colon Cancer Screening-Colonoscopy 04/04/2029 04/04/2024, 02/10/2023 Pneumococcal vaccine 65+ Completed 03/08/2018, 02/06 Colon Cancer Screening-CT Colonography Discontinued 04/04/2024, 02/10/2023 Colon Cancer Screening-DNA Stool Discontinued 04/04/20, 02/10/2023 Colon Cancer Screening-FIT Discontinued 04/04/2024, Colon Cancer Screening-Sigmoidoscopy Discontinued 04/04/2024, 02/10/2023 Medical Devices Implanted Type Area Certified Wellness Program Coordinator Device Identifier Shelf Expiration Date Model / Serial / Lot [employer] Dvr [id number] Crosslock [place] Screw Hole Fix Angle Radius Left 1318 - [id number] Implanted:Qty: 1 on 11/26/2022 by Chang Ward MD at [facility] Left: Wrist [employer] [id number] / / [employer] Dvr 2.7mm 18mm 3 Lead Thread Lock Taper Head Radius Distal Volar 131 - [id number] Implanted:Qty: 1 on 11/26/2022 by Chang Ward MD at [facility] Left: Wrist [employer] [id number] / / [employer] Dvr 2.7mm 20mm Lock Spine Screw Bone Nonsterile 13[address] - [id number] Implanted:Qty: 2 on 11/26/2022 by Chang Ward MD at [facility] Left: Wrist [employer] [id number] / / [employer] 2.7mm 13mm Nonlock Low Profile Radius Distal Screw Bone [id number] - [id number] Implanted:Qty: 1 on 11/26/2022 by Chang Ward MD at [facility] Left: Wrist [employer] [id number] / / [employer] Dvr 2.7mm 14mm Lock Cortical Screw Bone Nonsterile Latex Free 131-114 - [id number] Implanted:Qty: 2 on 11/26/2022 by Chang Ward MD at [facility] Left: Wrist [employer] [id number] / / [employer] Dvr 2.7mm 13mm Lock 3 Lead Thread Crosslock Taper Head Radius - [id number] Implanted:Qty: 1 on 11/26/2022 by Chang Ward MD at [facility] Left: Wrist [employer] 131-113 / / Procedures Procedure Name Priority Date/Time Associated Diagnosis Comments SCAN - OTHER ORDERS 03/21/2025 EGFR Routine 02/27/2025 10:12 AM CDT LIPID PANEL Routine 02/27/2025 10:12 AM CDT HEMOGLOBIN A1C Routine 02/27/2025 10:12 AM CDT COMPREHENSIVE METABOLIC PANEL Routine 02/27/2025 10:12 AM CDT COLONOSCOPY REPORT Routine 04/04/2024 10 :21 AM [...] Read Routine (OP Routine) 04/16/2023 12:56 PM SHOW CARD LETTERER Encounter for screening mammogram for malignant neoplasm of breast from Last 3 Months or Most Recently Relevant to Health Maintenance Results * SCAN - OTHER ORDERS (03/21/2025) us Provider Scanning Final Result * eGFR (02/27/2025 [...] ORDERABLES Final Resul t Performing Organization Address City/[facility] Co de Phone Number YAMILEX LIRIANO [address] [place] [address] * (ABNORMAL) Hemoglobin A1c (02/27/2025 10:12 AM CDT) Hgb A1C 7.4(H) 4.0 - 5.6 % Estimated Average Glucose 166 mg/dL [facility]IR[facility] Comment: The ADA recommends reporting an estimated Average Glucose (eAG) with all Hemoglobin A1c results using the equation derived from a study of 507 normal and diabetic adults. Minority populations were underrepresented and children were not included. (Diabetes Care 31:9939-7421, 2008). The eAG is not equivalent to a fasting glucose. Blood 02/27/2025 10:1 2 AM CDT 02/27/2025 12:28 PM CDT Zachary Allan MD LAB BLOOD ORDERABLES Final Resul t Performing Organization Address City/[facility]/ZIP Co de Phone Number [facility] LIRIANO [address] [place] [address] * (ABNORMAL) Lipid panel (02/27/2025 10:12 AM [...] on 2018. Triglycerides 105 <=149 mg/dL YAMILEX Comment: Interpretive Data Ages < or = [...] on 2018. HDL 31(L) >=40 mg/dL YAMILEX Comment: Interpretive Data Ages < or = [...] 2018. LDL, calculated 51 <=129 mg/dL YAMILEX Comment: Interpretive Data Ages < or = [...] NCEP Expert Panel. Circulation 2004;110:227 3. Cole M et al. KIESHA Cardiol. 2019October 05;5(5):540-548. doi: 10.1001/jamacardio.2020.0013 Current Interpretive Data was last revised on 2024. Non-HDL Cholesterol 71 mg/dL [facility] Comment: Interpretive Data Ages < or = [...] LAB BLOOD ORDERABLES Final Resul t YAMILEX [address] [address] Department of Laboratories [place] [id number] * Comprehensive metabolic panel (02/27/2025 10:12 AM CDT) Sodium 142 135 - 145 mmol/L Potassium, pl 4.3 3.3 - 4.9 mmol/L [facility] Chloride 105 97 - 110 mmol/L [facility] CO2 26 22 - 32 mmol/L [facility] Anion gap 11 2 - 15 mmol/L [facility] BUN 17 6 - 25 mg/dL [facility] Creatinine 1.00 0.60 - 1.10 mg/dL [facility] Glucose 114 70 - 199 mg/dL [facility]ER Comment: Interpretive Data Fasting glucose >/= 126 [...] MD LAB BLOOD ORDERABLES Final [facility]ul t [facility] [address] [address] Department [place] [address] * Colonoscopy Report -[facility] (04/04/2024 10:21 AM CDT) Anatomical Region Laterality Modality Other [facility] Provider GI PROCEDURE ORDERABLES F inal Result [...] fracture and secondary osteoporosis. Patient takes vitamin-D. Certified Wellness Program Coordinator/Model: [employer]ack (S/N [id number]) CLINICAL INFORMATION: Current height: 62 inches Maximum [...] Rebecca Syed M.D. TW: TW Report ID: [id number] Reading Location: [id number] Procedure Note Rebecca Syed MD - 03/23/2024 EXAM DESCRIPTION: DEXA AXIAL SKELETON BONE DENSITY 1 OR MORE SITES REASON FOR STUDY: 74 y/o year old F with given history of: Post menopausal status. History prior fracture and secondary osteoporosis. Patient takes vitamin-D. Certified Wellness Program Coordinator/Model: [employer] SL (S/N [id number]) CLINICAL INFORMATION: Current height: 62 inches Maximum [...] Rebecca Syed M.D. TW: TW Report ID: [id number] Reading Location: [place] [address] Mer Vazquez NP IMG DXA PROCEDURES Final R esult * (ABNORMAL) Albumin Creatinine Ratio, Urine (02/14/2024 11:16 AM CDT) Albumin Ur 59.2 mg/L Comment: Interpretive Data No reference range established. Current interpretive data was last revised 2018. Testing performed by: [address] [address] Creatinine Ur 187.7 mg/dL YAMILEX JHA (KARIME) Comment: Interpretive Data No reference range established. Current interpretive data was last revised 2018. Testing performed by: [facility], [address] [place] [address]., [address] Albumin Creatinine Ratio, Ur 32(H) 1 - 29 mg/g YAM[facility]X JHA (KARIME) Comment:Testing performed by : [address] [address] Urine 02/14/2024 11:1 6 AM CDT 02/14/2024 6:30 PM CDT Mer Vazquez NP LAB URINE ORDERABLES Final Result YAMILEX JHA (KARIME) 1 [facility] Department [place] [address] * DIABETES EYE EXAM (10/19/2023) SCRIBED DIABETIC DILATED EYE EXAM Normal Historical Provider HEALTH MAINTENANCE Final Result * Screening Mammogram Bilateral W Philipp (04/16/2023 12:56 PM SHOW CARD LETTERER) Anatomical Region Laterality Modality Breast Bilateral Mammography 04/28/2023 2:18 PM SHOW CARD LETTERER Impressions 04/28/2023 2:18 PM SHOW CARD LETTERER There is no mammographic evidence of malignancy. A 1 year screening mammogram is recommended. BI-RADS: 1 - Negative. The patient has been or will be contacted. The patient will be entered into a reminder system with a target due date of 1 year for her next mammogram. Electronically signed by: Jaida Rothman M.D. Narrative 04/28/2023 2:18 PM SHOW CARD LETTERER EXAMINATION: SCREENING MAMMOGRAM BILATERAL W PHILIPP ORDERING [...] been no suspicious interval change. Mer Vazquez DYNAMIC ETCHING PROCESSOR IMG MAMMO PROCEDURES Final Result from Last 3 Months or Most Recently Relevant to Health Maintenance Insurance MEDICARE MEDICARE [place] [id number] H & W MCR SUPPLEMENT MEDICARE LOCAL [facility] H & W MCR SUPPLEMENT Advance Directives For more information, please contact: [phone] Documents on File Type Date Recorded Patient Exhibits Coordinator Expl anation ADVANCE DIRECTIVE 06/19/2022 6:10 PM * Full Code (Latest Code Status on File) Date Activated Date Inactivated Comments 04/29/2024 9:41 PM 05/01/2024 3:08 PM Care Teams Hand Candy Cutter Relationship Specialty Start Date End Date Horacio Ma MD [address] [place] [address] PCP - General Family Practice 10/02/24 Chang Ward MD Surgeon Orthopedic Surgery 11/26/22
== END 2025-05-08 14:48 | disposition home or self-care (01) ==
PROVIDERS: PCP Family Medicine; Visit Provider Nurse Practitioner Family
DX: M25.511 Pain in right shoulder (principal); M25.561 Pain in right knee; M25.562 Pain in left knee; Z96.651 Presence of right artificial knee joint
CPT/HCPCS: 73030; 73564